=== PATIENT | male | born 1955 | race Caucasian/White ===

== ENCOUNTER → 2017-07-19 09:06 | Outpatient (CLI) | payer OTHER, SELFPAY ==
--- NOTE | 2017-07-19 09:11 | US_ITS ---
US aorta Ordering Physician: Pako Trivedi MD Patient Age: 61 years: Male HISTORY: ITS.REASON: AORTIC ANEURYSM TECHNIQUE: Ultrasound abdomen COMPARISON :Previous CTA abdomen abdomen from March 08, 2017. FINDINGS Aneurysmal lower abdominal aorta again noted and measures 3.9 cm transverse x 3.95 cm cm AP. This is comparable to the findings on February 2017 CT A abdomen study. No significant change. This aneurysm extends for nearly 7.5cm in length .. Mild atheromatous plaque anteriorly. The iliac arteries are only mildly dilated. July 2016 CT this aneurysm measured 3.8 cm x up to 3.9 cm AP The upper abdominal aorta appears normal caliber IMPRESSION AAA A fairly stable appearance to the aneurysm of the lower bowel aorta. It measures up to 3.95 cm AP diameter-comparable, and fairly stable to the CT from February 2017 . Associated mild dilatation of the iliac arteries again noted. Unchanged as well.
== END ==
PROVIDERS: Family Provider Emergency Medicine; PCP Emergency Medicine; Visit Provider Thoracic Surgery (Cardiothoracic Vascular Surgery)
DX: I71.2 Thoracic aortic aneurysm, without rupture (principal)
CPT/HCPCS: 76770

== ENCOUNTER → 2017-07-19 13:05 | Outpatient (POV) | payer OTHER, SELFPAY | PROVIDERS: Family Provider Emergency Medicine; PCP Emergency Medicine; Visit Provider Nurse Practitioner Acute Care | DX: Z00.00 Encounter for general adult medical examination without abnormal findings (principal) ==

== ENCOUNTER 2017-08-23 10:50 | Day surgery (SDC) | payer OTHER, SELFPAY ==
[2017-08-18 16:09] VITALS: BMI 35.4
[2017-08-23] VITALS (8 sets, daily range): BP systolic 120–125; BP diastolic 68–74; PULSE 50–67; RESP 16–18; TEMP 36.6–36.7; O2SAT 93–98
--- NOTE | 2017-08-23 11:06 | HMH.ANESCL ---
[facility] Anesthesia Checklist - Structural Data Admitted From: Home Planned Operative Procedure/s: colonoscopy Consent for Planned Operative Procedure(s) Verified: Yes - Airway Assessment C-Spine Mobility Assessed: Yes TMJ Mobility Assessed: Yes Dentition: Poor Dentition - Neurological Assessment Level of Consciousness: Awake, Alert - Anesthesia Plan Anesthesia Risk discussed: Yes Anesthesia Plan: Verified ASA Class: III Anesthesia Type: MAC [facility] Anesthesia HX I have reviewed the patient's past medical history: Yes Medical History: Reports:: Cancer, Chronic Obstructive Pulmonary Disease (COPD), Coronary Artery Disease, Diabetes Mellitus Type 2 (on med), Hyperlipidemia, Hypertension, Lung Disease (COPD), Transient Ischemic Attacks (TIA), Ulcer Denies:: Diabetes Mellitus Type 1, Internal Pacemaker Other Medical History: Reports: Anemia, Arthritis, Hypothyroidism, Thyroid Disease Other Surgeries: Yes: Appendectomy, Cardiac Catheterization, Plastic Surgery, Other ( ARM TENDON,PARTIAL BRAIN TUMOR REMOVED,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 No: Pacemaker Amputation: No Fractures: No *Family Hx:: Diabetes, Cancer, Hyperlipidemia, Heart Attack
[2017-08-23 11:20] LABS: POC Glucose,Bedside 100 mg/dL (70-110)
--- NOTE | 2017-08-23 12:56 | HMH.PROC ---
[facility] Procedure Note Procedure Note:: Flexible Sigmoidoscopy Procedure Report: Sigmoidoscopy/attempted colonoscopy Endoscopist: Montrell Ambrocio II, MD Referring physician: Teo Dominguez MD/Quinton Diehl M.D. Date of Procedure: August 23, 2017 Equipment: Olympus 180 variable stiffness pediatric colonoscope Sedation: MAC sedation Indication: Mr. Nolan is a 62-year-old gentleman who is here for diagnostic colonoscopy. The patient does have lower abdominal pain. He does have chronic constipation. He has more significant bloating and gassiness. He reports no rectal bleeding, weight loss or family history of colon cancer. He did have a colonoscopy 1.5 years ago and had numerous polyps. He did not get fully cleaned with preparation previously. He does have a history of abdominal aortic aneurysm. He does have a history of dyspepsia. Procedure: Prior to the procedure, a history and physical exam was performed, and patient's medications and allergies were reviewed. The risks, benefits and alternatives of the sedation and procedure were discussed with the patient. All questions were answered and informed consent was obtained. The patient was brought to the procedure room. Patient identification and proposed procedure were verified by the physician and the nurse. The patient was placed in a left lateral decubitus position and the scope was passed under direct vision. Throughout the procedure, the patient's blood pressure, pulse, and oxygen saturations were monitored continuously. The colonoscopy was accomplished without difficulty. The patient tolerated the procedure well. Findings: On digital rectal examination, there was normal rectal tone there were no external hemorrhoids. The scope was then inserted through the anal canal into the rectum and advanced approximately 25 cm. There was abundant liquid dark brown stool and some semisolid stool making visualization of the colon difficult to impossible and thus the procedure was aborted. Impression: 1. Unprepped colon Plan: Repeat colonoscopy with improved bowel preparation
--- NOTE | 2017-08-23 13:00 | P.PCN_ITS ---
[facility] Procedure Note Procedure Note:: Flexible Sigmoidoscopy Procedure Report: Sigmoidoscopy/attempted colonoscopy Endoscopist: Montrell Ambrocio II, MD Referring physician: Teo Dominguez MD/Quinton Diehl M.D. Date of Procedure: August 23, 2017 Equipment: Olympus 180 variable stiffness pediatric colonoscope Sedation: MAC sedation Indication: Mr. Nolan is a 62-year-old gentleman who is here for diagnostic colonoscopy. The patient does have lower abdominal pain. He does have chronic constipation. He has more significant bloating and gassiness. He reports no rectal bleeding, weight loss or family history of colon cancer. He did have a colonoscopy 1.5 years ago and had numerous polyps. He did not get fully cleaned with preparation previously. He does have a history of abdominal aortic aneurysm. He does have a history of dyspepsia. Procedure: Prior to the procedure, a history and physical exam was performed, and patient' s medications and allergies were reviewed. The risks, benefits and alternatives of the sedation and procedure were discussed with the patient. All questions were answered and informed consent was obtained. The patient was brought to the procedure room. Patient identification and proposed procedure were verified by the physician and the nurse. The patient was placed in a left lateral decubitus position and the scope was passed under direct vision. Throughout the procedure, the patient's blood pressure, pulse, and oxygen saturations were monitored continuously. The colonoscopy was accomplished without difficulty. The patient tolerated the procedure well. Findings: On digital rectal examination, there was normal rectal tone there were no external hemorrhoids. The scope was then inserted through the anal canal into the rectum and advanced approximately 25 cm. There was abundant liquid dark brown stool and some semisolid stool making visualization of the colon difficult to impossible and thus the procedure was aborted. Impression: 1. Unprepped colon Plan: Repeat colonoscopy with improved bowel preparation
== END 2017-08-23 14:00 | disposition home or self-care (01) ==
LOC: OUTP 10:51
PROVIDERS: Family Provider Emergency Medicine; PCP Emergency Medicine; Visit Provider Internal Medicine Gastroenterology
PROC: 0DJD8ZZ Inspection of Lower Intestinal Tract, Via Natural or Artificial Opening Endoscopic (ICD-10-PCS; CPT 45378; principal; 2017-08-23 12:30)
DX: K59.00 Constipation, unspecified (principal); Z91.19 Patient's noncompliance with other medical treatment and regimen
CPT/HCPCS: 45330; 82962

== ENCOUNTER 2017-11-04 12:24 | Outpatient (RCR) | payer OTHER, SELFPAY | END 2017-11-11 14:34 | disposition home or self-care (01) | LOC: PT 12:24 | PROVIDERS: Visit Provider Orthopaedic Surgery | DX: S52.125A Nondisplaced fracture of head of left radius, initial encounter for closed fracture (principal) | CPT/HCPCS: 97760 ==

== ENCOUNTER → 2017-11-11 13:11 | Outpatient (CLI) | payer OTHER, SELFPAY | PROVIDERS: PCP Emergency Medicine; Visit Provider Orthopaedic Surgery | DX: S52.122A Displaced fracture of head of left radius, initial encounter for closed fracture (principal) ==

== ENCOUNTER → 2017-11-12 08:07 | Outpatient (CLI) | payer OTHER, SELFPAY ==
--- NOTE | 2017-11-12 08:10 | XR_ITS ---
XR elbow LT 2V HISTORY: ITS.REASON: follow up left radial head fracture ORDERING PHYSICIAN: Sylvester Villasenor MD PATIENT AGE: 62 years COMPARISON: None FINDINGS: Lucency is noted at the radial head consistent with nondisplaced fracture which does appears comminuted. No significant depression. Hypertrophic changes are present at the coronoid process. There is a positive anterior fat pad. IMPRESSION: Nondisplaced comminuted radial head fracture with hemarthrosis
== END ==
PROVIDERS: PCP Emergency Medicine; Visit Provider Orthopaedic Surgery
DX: S52.122A Displaced fracture of head of left radius, initial encounter for closed fracture (principal)
CPT/HCPCS: 73070

== ENCOUNTER → 2017-11-25 14:37 | Outpatient (CLI) | payer OTHER, SELFPAY ==
--- NOTE | 2017-11-25 14:39 | XR_ITS ---
XR hand RT 2V HISTORY: Posttraumatic pain ITS.REASON: fall ORDERING PHYSICIAN: Teo Dominguez MD PATIENT AGE: 62 years COMPARISON: None FINDINGS: AP and and oblique lateral view submitted. No obvious fracture or dislocation. IMPRESSION: Negative two-view right hand
--- NOTE | 2017-11-25 14:39 | XR_ITS ---
XR wrist RT 2V HISTORY posttraumatic pain ITS.REASON: fall ORDERING PHYSICIAN: Teo Dominguez MD PATIENT AGE: 62 years Comparison: None FINDINGS: AP and lateral views show no obvious fracture or dislocation. IMPRESSION: Negative two-view right wrist
== END ==
PROVIDERS: PCP Emergency Medicine; Visit Provider Emergency Medicine
DX: M79.641 Pain in right hand (principal)
CPT/HCPCS: 73100; 73120

== ENCOUNTER 2017-12-16 13:00 | Outpatient (RCR) | payer OTHER, SELFPAY ==
--- NOTE | 2017-11-11 14:19 | HMH.PTOPEV ---
PT Outpatient Evaluation Rehab PT Outpatient Evaluation Start: 11/11/17 14:00 Freq: Status: Active Protocol: Document 11/11/17 14:00 TFRY (Rec: 11/11/17 14:17 TFRY [id number]) Electronically Signed By Zaida Prater OT 11/11/17 14:00 Outpatient Therapy Subjective History Subjective History THIS IS A 62 YEAR OLD RIGHT HANDED MALE REFERRED TO OCCUPATIONAL THERAPY FOR LEFT CMC OA/ PROBALE LEFT RADIAL HEAD FX/LEFT WRIST CONTUSION. PATIENT STATES THAT HE FELL GETTING OUT OF HIS TRUCK WHEN HE GOT HIS FEET GOT CAUGHT STEPPING OVER A PILE OF WOOD. PATIENT STATES HE FEEL APPROXIMATELY 3 WEEKS AGO. Chief Complaint Pain Symptom Type Sharp Symptoms Relieved By Rest/Positioning Brace/Support Prescription Meds Symptoms Aggravated By Physical Activity Prior Functional Limitations None Current Functional Limitations Reaching Lifting Dressing Sleeping Symptom Description Constant but Variable Level of pain today (0-10) 7 Pain scale - at its best (0-10) 3 Pain scale - at its worst (0-10) 9 Shoulder/Elbow Eval Shoulder Objective Measurements Elbow Objective Measurements Elbow ROM Left decreased ROM elbow exam standard left pain with active ROM elbow exam standard left pain with passive ROM elbow exam left standard Elbow Extension Active Range of Motion ( 20 degrees) Elbow Extension Passive Range of Motion 15 (degrees) Elbow Flexion Active Range of Motion ( 110 degrees) Elbow Flexion Passive Range of Motion ( 112 degrees) Elbow Pronation of Forearm Range of WFL Motion (degrees) Elbow Supination of Forearm Range of 20 Motion (degrees) Elbow Supination of Forearm Range of 30 Motion (degrees) Elbow ROM Limitations Pain Elbow MMT Elbow/Forearm Strength Reason Not Orthopedic Precautions Measured Wrist/Hand Eval Palpation Tenderness/Visual Exam Wrist pain left tenderness wrist exam standard left Wrist/Hand Palpation Findings Tenderness Wrist Range of Motion Wrist Extension Active Range of Motion ( 50 degrees) Wrist Extension Passive Range of Motion 58 (degrees) Wrist Flexion Active Range of Motion (
== END 2017-12-16 13:01 | disposition home or self-care (01) ==
LOC: OT 13:00
PROVIDERS: Family Provider Emergency Medicine; PCP Emergency Medicine; Visit Provider Orthopaedic Surgery
DX: S52.125A Nondisplaced fracture of head of left radius, initial encounter for closed fracture (principal)
CPT/HCPCS: 97014; 97033; 97110; 97140; 97166; G0283

== ENCOUNTER 2018-01-06 15:19 | Observation (INO) ==
[2018-01-06 16:05] LABS: Basophils % 0.5 % (0.1-2.0); Eosinophils # 0.1 K/mm3 (0.0-0.4); Eosinophils % 1.5 % (0.1-12.0); Hemoglobin 13.7 g/dL (14.1-18.0); Lymphocytes # 1.5 K/mm3 (0.7-4.5); Lymphocytes % 26.9 K/mm3 (10-50); Mean Corpuscular HGB Conc 32.5 g/dL (31.8-35.4); Mean Corpuscular Hemoglobin 28.4 pg (27.0-31.2); Mean Corpuscular Volume 87.2 fl (80-94); Mean Platelet Volume 7.6 fl (7.4-10.4); Monocytes # 0.5 K/mm3 (0.1-1.0); Monocytes % 8.5 % (1.7-9.3); Neutrophils # 3.6 K/mm3 (1.8-7.8); Neutrophils % 62.6 % (37.0-80.0); Platelet Count 203 K/mm3 (142-424); Red Blood Count 4.82 M/mm3 (4.60-6.20); Red Cell Distribution Width 13.9 % (11.5-17.5); White Blood Count 5.7 K/mm3 (4.8-10.8)
[2018-01-06 16:33] LABS: Alanine Aminotransferase 40 U/L (12-78); Albumin Level 3.7 gm/dL (3.4-5.0); Alkaline Phosphatase 105 U/L (46-116); Anion Gap 10.7 mEq/L (5-15); Aspartate Amino Transferase 19 U/L (15-37); Bilirubin,Total 0.7 mg/dL (0.2-1.0); Blood Urea Nitrogen 15 mg/dL (7-18); Calcium 8.8 mg/dL (8.5-10.1); Carbon Dioxide 29 mmol/L (21.0-32.0); Chloride 105 mmol/L (98-107); Creatine Kinase 144 U/L (39-308); Globulin 3.6 gm/dl (1.3-3.2); Glucose 110 mg/dL (74-106); Potassium 3.7 mmoL/L (3.5-5.1); Sodium 141 mmol/L (136-145); Total Protein,Serum 7.3 gm/dL (6.4-8.2)
--- NOTE | 2018-01-06 16:56 | Emergency Department Note ---
ED Disposition Clinical Impression: Chest pain Qualifiers: Chest pain type: unspecified Qualified Code(s): R07.9 - Chest pain, unspecified Disposition: Admitted as Observation Condition on Discharge: Fair Time of Disposition: 20:36 - Critical Care Critical Care Time: No Attestation: On 01/06/18, the high probability of a clinically significant, sudden or life threatening deterioration of the following system(s) required my full and direct attention, intervention and personal management. The time I documented below is in addition to time spent performing reported procedures but includes the following listed in this critical care notation. Medical Decision Making - Medical Records Medical records reviewed: Yes: I reviewed the patient's medical records. - Luis Felipe Inquiry Pt receiving controlled substance: No Luis Felipe was queried for this patient: No Vital Signs: 01/06/18 15:25 01/06/18 15:40 01/06/18 15:41 Temperature 99.3 F Temperature Source Oral Pulse Rate [Right] 80 82 79 Respiratory Rate 18 18 18 Blood Pressure [Right Arm] 127/86 127/86 117/67 Blood Pressure Mean [Right Arm] 99 99 83 Blood Pressure Source [Right Arm] Automatic Cuff Automatic Cuff Automatic Cuff Blood Pressure Position [Right Arm] Supine Sitting Sitting 02 Sat by Pulse Oximetry 91 L 97 98 Oxygen Delivery Method Room Air Room Air Room Air 01/06/18 15:50 01/06/18 16:20 01/06/18 17:39 Temperature Temperature Source Pulse Rate [Right] 77 78 69 Respiratory Rate 18 18 18 Blood Pressure [Right Arm] 117/67 113/72 115/73 Blood Pressure Mean [Right Arm] 83 85 87 Blood Pressure Source [Right Arm] Automatic Cuff Automatic Cuff Automatic Cuff Blood Pressure Position [Right Arm] Sitting Sitting Sitting 02 Sat by Pulse Oximetry 95 95 95 Oxygen Delivery Method Room Air Room Air Room Air - Lab Data Lab results reviewed: Yes: I reviewed the patient's lab results. Lab Results 01/06/18 16:00: WBC 5.7, RBC 4.82, Hgb 13.7 L, Hct 42.0, MCV 87.2, MCH 28.4, MCHC 32.5, RDW 13.9, Plt Count 203, MPV 7.6, Neut % (Auto) 62.6, Lymph % (Auto) 26.9, [place] % (Auto) 8.5, Eos % (Auto) 1.5, Baso % (Auto) 0.5, Neut # (Auto) 3.6 , Lymph # (Auto) 1.5, [place] # (Auto) 0.5, Eos # (Auto) 0.1, Baso # (Auto) 0.0 01/06/18 16:00: Sodium 141, Potassium 3.7, Chloride 105, Carbon Dioxide 29, Anion Gap 10.7, BUN 15, Creatinine 1.22, Estimated Creat Clear 86, Estimated GFR 60, Est GFR ( Amer) 72, Glucose 110 H, Calcium 8.8, Total Bilirubin 0.7, AST 19, ALT 40, Alkaline Phosphatase 105, Total Creatine Kinase 144, CK-MB (CK-2) 0.8, CK-MB (CK-2) Rel Index 0.6, Troponin I < 0.02, Total Protein 7.3, Albumin 3.7, Globulin 3.6 H, Albumin/Globulin Ratio 1.0 L 01/06/18 17:35: Urine Color Yellow, Urine Appearance Clear, Urine pH 6.0, Ur Specific [place] 1.020, Urine Protein Negative, Urine Glucose (UA) Negative, Urine Ketones Negative, Urine Blood Negative, Urine Nitrate Negative, Urine Bilirubin Negative, Urine Urobilinogen 0.2, Ur Leukocyte Esterase Trace, Urine RBC None, Urine WBC 3-5, Ur Squamous Epith Cells 5-10, Urine Bacteria 2+, Hyaline Casts 5-10 01/06/18 19:15: Troponin I < 0.02 Result diagrams: 01/06/18 16:00 01/06/18 16:00 Orders (Tests/Meds): ED MEDICATIONS Generic Name Dose Route Start Last Admin Trade Name Freq PRN Reason Stop Dose Admin Nitroglycerin 0.4 mg 01/06/18 15:42 Nitrostat 0.4mg Sl Tablet SL 02/05/18 15:41 [id number] PRN Chest Pain Discontinued Medications Generic Name Dose Route Start Last Admin Trade Name Freq PRN Reason Stop Dose Admin Aspirin 324 mg 01/06/18 15:41 01/06/18 15:43 Aspirin 81mg Chewable Tablet PO 01/06/18 15:42 324 mg ONCE ONE Administration Ketorolac Tromethamine 30 mg 01/06/18 19:21 01/06/18 19:33 Toradol 30mg/Ml Vial IV 01/06/18 19:22 30 mg ONCE ONE Administration ORDERS Category Date Time Status Urine Culture Stat Micro 01/06/18 17:35 Received Chest Pain HPI - General Chief Complaint: Chest Pain Stated Complaint: HS Time Seen by Provider: 01/06/18 16:54 Mode of Arrival: Ambulatory Source of Information: Patient Limitations: No Limitations Description of Symptoms (Recalled from ER Triage Doc. by RN): Intermittent chest pain for the past week, mostly at night - History of Present Illness HPI narrative: Intermittent chest pain for the past week, mostly at night and history of CAD with a stent placed by Dr. Castellanos in November 2016. He is on Viagra daily and is not taking NTG MD complaint: chest pain indicative of cardiac Onset (ago): week(s) Duration: intermittent Activity at onset: during rest, light activity Treatments prior to or on arrival for Cardiac Chest Pain: aspirin - Related Data Home Medications Medication Instructions Recorded Confirmed albuterol sulfate HFA 90 2 puff INHALATION Q4H PRN g 06/25/17 11/08/17 mcg/actuation aerosol inhaler fluticasone 50 mcg/actuation nasal 1 spray INTRANASAL QDAY PRN 06/25/17 11/08/17 spray,suspension hydrocodone 10 mg-acetaminophen 1 tab PO QID PRN tab 06/25/17 11/08/17 325 mg tablet polyethylene glycol 3350 17 17 g PO QDAY PRN 06/25/17 11/08/17 gram/dose oral powder sildenafil (antihypertensive) 20 20 mg PO QDAY tab 06/25/17 11/08/17 mg tablet Methocarbamol [Methocarbamol 750mg 750 mg PO BID PRN 08/18/17 11/08/17 Tab] Dexlansoprazole [Dexilant] 60 mg PO DAILY 11/08/17 11/08/17 Losartan/Hydrochlorothiazide 1 tab PO DAILY 11/08/17 11/08/17 [Hyzaar 100-12.5 Tablet] Previous Rx's Medication Instructions Recorded metformin 500 mg tablet 500 mg PO QDAY 90 Days #90 tab 11/01/17 atorvastatin 40 mg tablet 40 mg PO DAILY #30 tab 11/15/17 levothyroxine 75 mcg tablet 75 mcg PO DAILY #90 tab 12/11/17 furosemide 40 mg tablet 40 mg PO DAILY 30 Days #30 tab 12/16/17 Allergies Allergy/AdvReac Type Severity Reaction Status Date / Time cephalexin [CEPHALEXIN] Allergy Unknown Verified 12/09/17 15:15 latex [LATEX] Allergy Unknown Verified 12/09/17 15:15 Penicillins [PENICILLINS] Allergy Unknown Verified 12/09/17 15:15 Sulfa (Sulfonamide Allergy Unknown Verified 12/09/17 15:15 Antibiotics) [SULFA (SULFONAMIDE ANTIBIOTICS)] [facility] History I have reviewed the patient's past medical history: Yes Medical History: Reports:: Cancer (eyelid), Chronic Obstructive Pulmonary Disease (COPD), Coronary Artery Disease, Diabetes Mellitus Type 2, Hyperlipidemia, Hypertension, Lung Disease, Transient Ischemic Attacks (TIA), Ulcer Denies:: Diabetes Mellitus Type 1, Internal Pacemaker, MRSA, Seizures Other Medical History: Reports: Anemia, Arthritis, Hypothyroidism, Thyroid Disease Other Surgeries: Yes: Angiogram, Appendectomy, Cardiac Catheterization, Colonoscopy, Coronary Stent, Plastic Surgery, Other ( ARM TENDON,PARTIAL BRAIN TUMOR REMOVED,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 No: Pacemaker Amputation: No Fractures: Yes (left wrist and arm) - Social History Educational Level: Completed GED/General Educational Development Smoking Status: Former smoker Alcohol Intake: never Alcohol Intake Frequency:: other Substance Use Type: denies use - Psychiatric History Expresses thoughts of harming self/others: None Suicide Plan Description: No Plan Family Hx:: Diabetes, Cancer, Hyperlipidemia, Heart Attack ROS Obtained: Yes All systems reviewed & no additional complaints - Constitutional Constitutional: Reports system reviewed and no additional complaints, except as docu - Eyes Eyes: Reports system reviewed and no additional complaints, except as docu - Cardiovascular Cardiovascular: Reports system reviewed and no additional complaints, except as docu, Reports as per HPI Physical Exam - General General appearance: alert, in no apparent distress - Head Head exam: atraumatic - Eye Eye exam: Present: normal appearance - ENT ENT exam: Present: normal exam (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
[2018-01-06 17:37] LABS: Microscopic, Urine URINE MICROSCOPIC (MICROSCOPIC)
[2018-01-06 17:40] LABS: Appearance,Urine CLEAR (Clear); Bilirubin,Urine Negative (Negative); Blood, Urine Negative (Negative); Color,Urine YELLOW (Yellow); Glucose,Urine (UA) Negative (Negative); Ketones,Urine Negative (Negative); Leukocyte Esterase,Urine TRACE (Negative); Protein,Urine Negative (Negative); Urobilinogen,Urine 0.2 EU/dl (0.2)
[2018-01-06 17:53] LABS: Bacteria,Urine 2+ /lpf
[2018-01-07 06:08] LABS: Basophils % 0.4 % (0.1-2.0); Eosinophils # 0.1 K/mm3 (0.0-0.4); Eosinophils % 1.1 % (0.1-12.0); Hematocrit 43.9 % (42.0-52.0); Hemoglobin 13.6 g/dL (14.1-18.0); Lymphocytes # 0.8 K/mm3 (0.7-4.5); Mean Corpuscular Hemoglobin 27.4 pg (27.0-31.2); Mean Corpuscular Volume 88.4 fl (80-94); Mean Platelet Volume 7.6 fl (7.4-10.4); Monocytes # 0.5 K/mm3 (0.1-1.0); Neutrophils # 7.6 K/mm3 (1.8-7.8); Neutrophils % 83.4 % (37.0-80.0); Platelet Count 188 K/mm3 (142-424); Red Blood Count 4.96 M/mm3 (4.60-6.20); Red Cell Distribution Width 13.8 % (11.5-17.5); White Blood Count 9.1 K/mm3 (4.8-10.8)
--- NOTE | 2018-01-07 07:58 | Consult Report ---
History of Present Illness Consult date: 01/07/18 Requesting physician: Teo Dominguez Consult reason: chest pain Chief complaint: chest pain Additional Medical History:: 1. Coronary disease A. History of abnormal stress test with inferior ischemia, 11/2016 B. Cardiac catheterization with subsequent drug-eluting stent placement to the RIGHT coronary artery, 11/2016. Aspirin and Effient therapy. C. Federico Myoview, 02/2017, No ischemia with inferior scar. EF 55%. D. Hospital admission for chest pain with normal troponins, 05/2017, Cardiac cath revealing patent RCA stent with insignificant CAD of true circumflex. Normal LVEF. 2. Previous brain surgery for benign brain mass, 1995, with resultant RIGHT facial droop A. Follows with neurology at . Recent MRI of the brain 02/2017, results pending 3. History of both ascending aortic aneurysm (4 cm) and abdominal aortic aneurysm (3.9 X 3.4 cm), with CTA of the chest and abdomen, 07/2016. A. CTA of chest, 03/08/2017, AAA at 4 cm. 4. Diabetes mellitus 5. Hyperlipidemia 6. Remote tobacco use discontinued approximately 2002 A. COPD History of present illness: 62 yo WM with known previous CAD and RCA stenting with most recent cardiac cath in 05/2017 showing patient stent with insignificant disease of the circumflex presented to the ER for evaluation of 2 wks of chest pain associated with emotional distress. Patient relates no exertional chest pains and today states that he has been under a lot of emotional stress over the last 2 wks. Cardiac troponins have been normal X 4 overnight. EKG is sinus without acute changes. He does relate increased reflux symptoms which improves with ant-acids. Cardiology consulted for further evaluation. [facility] History Medical History: Reports:: Cancer (eyelid), Chronic Obstructive Pulmonary Disease (COPD), Coronary Artery Disease, Diabetes Mellitus Type 2, Hyperlipidemia, Hypertension, Lung Disease, Transient Ischemic Attacks (TIA), Ulcer Denies:: Diabetes Mellitus Type 1, Internal Pacemaker, MRSA, Seizures Other Medical History: Reports: Anemia, Arthritis, Hypothyroidism, Thyroid Disease Other Surgeries: Yes: Angiogram, Appendectomy, Cardiac Catheterization, Colonoscopy, Coronary Stent, Plastic Surgery, Other ( ARM TENDON,PARTIAL BRAIN TUMOR REMOVED,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 No: Pacemaker Amputation: No Fractures: Yes (left wrist and arm) - *Social History Educational Level: Completed GED/General Educational Development Smoking Status: Former smoker Alcohol Intake: former Alcohol Intake Frequency:: other Substance Use Type: marijuana Occupational Status: disabled - Psychiatric History Expresses thoughts of harming self/others: None Suicide Plan Description: No Plan *Family Hx:: Diabetes, Cancer, Hyperlipidemia, Heart Attack Meds Home Medications Medication Instructions Recorded Confirmed Type albuterol sulfate HFA 90 2 puff INHALATION Q4H PRN g 06/25/17 01/06/18 History mcg/actuation aerosol inhaler fluticasone 50 mcg/actuation nasal 1 spray INTRANASAL QDAY PRN 06/25/17 History spray,suspension hydrocodone 10 mg-acetaminophen 1 tab PO Q6HP PRN tab 06/25/17 01/07/18 History 325 mg tablet polyethylene glycol 3350 17 17 g PO QDAY PRN 06/25/17 01/06/18 History gram/dose oral powder sildenafil (antihypertensive) 20 20 mg PO QDAY PRN tab 06/25/17 01/06/18 History mg tablet Methocarbamol [Methocarbamol 750mg 750 mg PO BID PRN 08/18/17 01/06/18 History Tab] Losartan/Hydrochlorothiazide 1 tab PO DAILY 11/08/17 01/07/18 History [Hyzaar 100-12.5 Tablet] Alfuzosin HCl [Alfuzosin HCl ER] 10 mg PO DAILY 01/07/18 01/07/18 History Aspirin [Aspirin 81mg EC Tab] 81 mg PO DAILY 01/07/18 01/07/18 History Rabeprazole Sodium 20 mg PO DAILY 01/07/18 01/07/18 History Allergies Allergy/AdvReac Type Severity Reaction Status Date / Time latex [LATEX] Allergy Unknown Verified 12/09/17 15:15 Penicillins [PENICILLINS] Allergy Unknown Verified 12/09/17 15:15 Sulfa (Sulfonamide Allergy Unknown Verified 12/09/17 15:15 Antibiotics) [SULFA (SULFONAMIDE ANTIBIOTICS)] Review of Systems - *Cardiovascular Reports chest pain, Reports shortness of breath with activity - *Respiratory Reports shortness of breath with activity - *Gastrointestinal Denies abdominal pain - *Musculoskeletal Reports joint pain Exam Vital signs and Labs for Last 24 Hours: Temp Pulse Resp BP Pulse Ox 97.7 F 93 H 18 122/56 98 01/07/18 05:41 01/07/18 05:41 01/07/18 05:41 01/07/18 05:41 01/07/18 05:41 Laboratory Results - last 24 hr 01/06/18 16:00: WBC 5.7, RBC 4.82, Hgb 13.7 L, Hct 42.0, MCV 87.2, MCH 28.4, MCHC 32.5, RDW 13.9, Plt Count 203, MPV 7.6, Neut % (Auto) 62.6, Lymph % (Auto) 26.9, [place] % (Auto) 8.5, Eos % (Auto) 1.5, Baso % (Auto) 0.5, Neut # (Auto) 3.6 , Lymph # (Auto) 1.5, [place] # (Auto) 0.5, Eos # (Auto) 0.1, Baso # (Auto) 0.0 01/06/18 16:00: Sodium 141, Potassium 3.7, Chloride 105, Carbon Dioxide 29, Anion Gap 10.7, BUN 15, Creatinine 1.22, Estimated Creat Clear 86, Estimated GFR 60, Est GFR ( Amer) 72, Glucose 110 H, Calcium 8.8, Total Bilirubin 0.7, AST 19, ALT 40, Alkaline Phosphatase 105, Total Creatine Kinase 144, CK-MB (CK-2) 0.8, CK-MB (CK-2) Rel Index 0.6, Troponin I < 0.02, Total Protein 7.3, Albumin 3.7, Globulin 3.6 H, Albumin/Globulin Ratio 1.0 L 01/06/18 17:35: Urine Color Yellow, Urine Appearance Clear, Urine pH 6.0, Ur Specific [place] 1.020, Urine Protein Negative, Urine Glucose (UA) Negative, Urine Ketones Negative, Urine Blood Negative, Urine Nitrate Negative, Urine Bilirubin Negative, Urine Urobilinogen 0.2, Ur Leukocyte Esterase Trace, Urine RBC None, Urine WBC 3-5, Ur Squamous Epith Cells 5-10, Urine Bacteria 2+, Hyaline Casts 5-10 01/06/18 19:15: Troponin I < 0.02 01/06/18 23:47: Troponin I < 0.02 01/07/18 02:50: Troponin I < 0.02 01/07/18 05:44: WBC 9.1 D, RBC 4.96, Hgb 13.6 L, Hct 43.9, MCV 88.4, MCH 27.4, MCHC 31.0 L, RDW 13.8, Plt Count 188, MPV 7.6, Neut % (Auto) 83.4 H, Lymph % ( Auto) 9.0 L, [place] % (Auto) 6.0, Eos % (Auto) 1.1, Baso % (Auto) 0.4, Neut # ( Auto) 7.6, Lymph # (Auto) 0.8, [place] # (Auto) 0.5, Eos # (Auto) 0.1, Baso # (Auto ) 0.0 01/07/18 05:44: Troponin I < 0.02 I & O for Last 24 hours: Intake & Output 01/04/18 01/05/18 01/06/18 01/07/18 11:59 11:59 11:59 11:59 Weight 227 lb 7 oz - *Routine Neck Exam Absent: JVD, carotid bruit - *Routine Respiratory Exam Present: CTA bilaterally - *Routine Cardiovascular Exam Present: RRR, murmur. Absent: gallop, rubs - *Routine Abdominal Exam Present: soft. Absent: tenderness - *Routine Extremities Exam Absent: edema Assessment and Plan (1) Chest pain Current visit: Yes Status: Acute Qualifiers: Chest pain type: unspecified Qualified Code(s): R07.9 - Chest pain, unspecified Category: Medical Code(s): R07.9 - Chest pain, unspecified (2) Abdominal aortic aneurysm Current visit: No Status: Acute Category: Medical Code(s): I71.4 - Abdominal aortic aneurysm, without rupture (3) Aneurysm of ascending aorta Current visit: No Status: Acute Category: Medical Code(s): I71.2 - Thoracic aortic aneurysm, without rupture (4) Coronary arteriosclerosis Current visit: No Status: Acute Category: Medical Code(s): I25.10 - Atherosclerotic heart disease of [place] coronary artery without angina pectoris (5) Hyperlipidemia Current visit: No Status: Acute Category: Medical Code(s): E78.5 - Hyperlipidemia, unspecified (6) Hypertensive heart disease Current visit: No Status: Acute Category: Medical Code(s): I11.9 - Hypertensive heart disease without heart failure (7) Stented coronary artery Current visit: No Status: Acute Category: Surgical Code(s): Z95.5 - Presence of coronary angioplasty implant and graft - Assessment and plan all Dx Assessment and Plan for all problems:: 1. Chest pain does not appear to be cardiac in nature with normal troponins X 4 , EKG without acute changes and symptoms unrelated to activity. With widely patent stent by cardiac cath in 05/2017, would not recommend further workup at this time. 2. Continue current meds including ASA 81 mg daily. 3. Follow up in our office in 2 wks to discuss follow up scan for AAA.
--- NOTE | 2018-01-07 10:15 | Pharmacy Consult Notes ---
[facility] VTE Monitoring - Patient Demographics Admission date: 01/06/18 Report Date: 01/07/18 Time: 10:15 Allergies/Adverse Reactions: Patient Allergies latex [LATEX] Allergy (Unknown, Verified 12/09/17 15:15) Penicillins [PENICILLINS] Allergy (Unknown, Verified 12/09/17 15:15) Sulfa (Sulfonamide Antibiotics) [SULFA (SULFONAMIDE ANTIBIOTICS)] Allergy ( Unknown, Verified 12/09/17 15:15) Height: 1.73 m Weight: 103.164 kg Patient Problems: Current Active Problems (Last Updated 12/11/17 @ 18:41 by LOUIE Landin) Chest pain (Acute) - VTE Risk Labs: VTE Related Lab Results Hgb 13.6 g/dL (14.1-18.0) L 01/07/18 05:44 Hct 43.9 % (42.0-52.0) 01/07/18 05:44 Plt Count 188 K/mm3 (142-424) 01/07/18 05:44 BUN 15 mg/dL (7-18) 01/06/18 16:00 Creatinine 1.22 mg/dL (0.70-1.30) 01/06/18 16:00 Estimated Creat Clear 86 mL/min (0-300) 01/06/18 16:00 Was VTE Risk Assessment Performed: Yes VTE Score: 2 VTE Risk Level: Very Low Risk - Prophylaxis VTE Prophylaxis Ordered?: Yes Types of VTE Prophylaxis: TEDS Knee High Location of Applied Device: Bilateral Lower Extremeties - VTE Diagnosis Confirmed Treatment or plan recommended: Continue Current Treatment
--- NOTE | 2018-01-07 12:17 | H&P/Discharge Summary ---
General - General Admission date:: 01/06/18 Discharge date: 01/07/18 *Admission Date: 01/06/18 *Chief complaint: chest pain *History of present illness: this wm with known cardiac disease - pt has had episodes of chest pain over the last week - he was seen in the ed - termittent chest pain for the past week, mostly at night and history of CAD with a stent placed by Dr. Castellanos in November 2016. He is on Viagra daily and is not taking NTG- pt was admitted for card eval and serial enz [facility] History I have reviewed the patient's past medical history: Yes Medical History: Reports:: Cancer (eyelid), Chronic Obstructive Pulmonary Disease (COPD), Coronary Artery Disease, Diabetes Mellitus Type 2, Hyperlipidemia, Hypertension, Lung Disease, Transient Ischemic Attacks (TIA), Ulcer Denies:: Diabetes Mellitus Type 1, Internal Pacemaker, MRSA, Seizures Other Medical History: Reports: Anemia, Arthritis, Hypothyroidism, Thyroid Disease Other Surgeries: Yes: Angiogram, Appendectomy, Cardiac Catheterization, Colonoscopy, Coronary Stent, Plastic Surgery, Other ( ARM TENDON,PARTIAL BRAIN TUMOR REMOVED,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 No: Pacemaker Amputation: No Fractures: Yes (left wrist and arm) - *Social History Educational Level: Completed GED/General Educational Development Smoking Status: Former smoker Alcohol Intake: former Alcohol Intake Frequency:: other Substance Use Type: marijuana Occupational Status: disabled - Psychiatric History Expresses thoughts of harming self/others: None Suicide Plan Description: No Plan *Family Hx:: Diabetes, Cancer, Hyperlipidemia, Heart Attack Review of Systems - Review of Systems Review of systems:: pertinent systems reviewed and negative unless documented below - Constitutional Denies fever(s) - Eyes Denies change in vision - ENT Denies throat swelling - *Cardiovascular Reports chest pain at rest - *Respiratory Denies cough - *Gastrointestinal Denies abdominal pain - *Genitourinary Denies blood in urine - *Musculoskeletal Reports joint pain, Reports joint swelling - Integumentary/Breasts Denies rash - *Neurologic Denies seizure-like activity - Psychiatric Reports anxiety Exam Vital signs and Labs for Last 24 Hours: Temp Pulse Resp BP Pulse Ox 98.8 F 89 18 134/75 95 01/07/18 08:00 01/07/18 08:00 01/07/18 08:00 01/07/18 08:00 01/07/18 08:00 Laboratory Results - last 24 hr 01/06/18 16:00: WBC 5.7, RBC 4.82, Hgb 13.7 L, Hct 42.0, MCV 87.2, MCH 28.4, MCHC 32.5, RDW 13.9, Plt Count 203, MPV 7.6, Neut % (Auto) 62.6, Lymph % (Auto) 26.9, [place] % (Auto) 8.5, Eos % (Auto) 1.5, Baso % (Auto) 0.5, Neut # (Auto) 3.6 , Lymph # (Auto) 1.5, [place] # (Auto) 0.5, Eos # (Auto) 0.1, Baso # (Auto) 0.0 01/06/18 16:00: Sodium 141, Potassium 3.7, Chloride 105, Carbon Dioxide 29, Anion Gap 10.7, BUN 15, Creatinine 1.22, Estimated Creat Clear 86, Estimated GFR 60, Est GFR ( Amer) 72, Glucose 110 H, Calcium 8.8, Total Bilirubin 0.7, AST 19, ALT 40, Alkaline Phosphatase 105, Total Creatine Kinase 144, CK-MB (CK-2) 0.8, CK-MB (CK-2) Rel Index 0.6, Troponin I < 0.02, Total Protein 7.3, Albumin 3.7, Globulin 3.6 H, Albumin/Globulin Ratio 1.0 L 01/06/18 17:35: Urine Color Yellow, Urine Appearance Clear, Urine pH 6.0, Ur Specific [place] 1.020, Urine Protein Negative, Urine Glucose (UA) Negative, Urine Ketones Negative, Urine Blood Negative, Urine Nitrate Negative, Urine Bilirubin Negative, Urine Urobilinogen 0.2, Ur Leukocyte Esterase Trace, Urine RBC None, Urine WBC 3-5, Ur Squamous Epith Cells 5-10, Urine Bacteria 2+, Hyaline Casts 5-10 01/06/18 19:15: Troponin I < 0.02 01/06/18 23:47: Troponin I < 0.02 01/07/18 02:50: Troponin I < 0.02 01/07/18 05:44: WBC 9.1 D, RBC 4.96, Hgb 13.6 L, Hct 43.9, MCV 88.4, MCH 27.4, MCHC 31.0 L, RDW 13.8, Plt Count 188, MPV 7.6, Neut % (Auto) 83.4 H, Lymph % ( Auto) 9.0 L, [place] % (Auto) 6.0, Eos % (Auto) 1.1, Baso % (Auto) 0.4, Neut # ( Auto) 7.6, Lymph # (Auto) 0.8, [place] # (Auto) 0.5, Eos # (Auto) 0.1, Baso # (Auto ) 0.0 01/07/18 05:44: Troponin I < 0.02 I & O for Last 24 hours: Intake & Output 01/05/18 01/06/18 01/07/18 01/08/18 11:59 11:59 11:59 11:59 Weight 227 lb 7 oz - Constitutional no acute distress - *Routine HEENT Exam Head: Present: normocephalic Eye: Present: EOMI, PERRL ENT: Present: mucous membranes dry - *Routine Neck Exam Present: supple - *Routine Respiratory Exam Present: CTA bilaterally - *Routine Cardiovascular Exam Present: RRR, murmur - *Routine Abdominal Exam Present: soft. Absent: tenderness - *Routine Extremities Exam Absent: calf tenderness - *Routine Skin Exam Present: intact - *Routine Neurological Exam Present: alert, oriented X3, CN II-XII intact - Routine Psychiatric Exam Present: normal affect Hospital Course Hospital Course: pt did well in hospital and had neg enz and pain better - he was seen by card- Coronary disease A. History of abnormal stress test with inferior ischemia, 11/2016 B. Cardiac catheterization with subsequent drug-eluting stent placement to the RIGHT coronary artery, 11/2016. Aspirin and Effient therapy. C. Federico Myoview, 02/2017, No ischemia with inferior scar. EF 55%. D. Hospital admission for chest pain with normal troponins, 05/2017, Cardiac cath revealing patent RCA stent with insignificant CAD of true circumflex. Normal LVEF. 2. Previous brain surgery for benign brain mass, 1995, with resultant RIGHT facial droop A. Follows with neurology at . Recent MRI of the brain 02/2017, results pending 3. History of both ascending aortic aneurysm (4 cm) and abdominal aortic aneurysm (3.9 X 3.4 cm), with CTA of the chest and abdomen, 07/2016. A. CTA of chest, 03/08/2017, AAA at 4 cm. 4. Diabetes mellitus 5. Hyperlipidemia 6. Remote tobacco use discontinued approximately 2002 A. COPD History of present illness: 62 yo WM with known previous CAD and RCA stenting with most recent cardiac cath in 05/2017 showing patient stent with insignificant disease of the circumflex presented to the ER for evaluation of 2 wks of chest pain associated with emotional distress. Patient relates no exertional chest pains and today states that he has been under a lot of emotional stress over the last 2 wks. Cardiac troponins have been normal X 4 overnight. EKG is sinus without acute changes. He does relate increased reflux symptoms which improves with ant-acids. Cardiology consulted for further evaluation. Results Labs on day of discharge: Labs from last 24 hours 01/07/18 01/07/18 01/07/18 05:44 05:44 02:50 WBC 9.1 D RBC 4.96 Hgb 13.6 L Hct 43.9 MCV 88.4 MCH 27.4 MCHC 31.0 L RDW 13.8 Plt Count 188 MPV 7.6 Neut % (Auto) 83.4 H Lymph % (Auto) 9.0 L [place] % (Auto) 6.0 Eos % (Auto) 1.1 Baso % (Auto) 0.4 Neut # (Auto) 7.6 Lymph # (Auto) 0.8 [place] # (Auto) 0.5 Eos # (Auto) 0.1 Baso # (Auto) 0.0 Sodium Potassium Chloride Carbon Dioxide Anion Gap BUN Creatinine Estimated Creat Clear Estimated GFR Est GFR ( Amer) Glucose Calcium Total Bilirubin AST ALT Alkaline Phosphatase Total Creatine Kinase CK-MB (CK-2) CK-MB (CK-2) Rel Index Troponin I < 0.02 < 0.02 Total Protein Albumin Globulin Albumin/Globulin Ratio Urine Color Urine Appearance Urine pH Ur Specific [place] Urine Protein Urine Glucose (UA) Urine Ketones Urine Blood Urine Nitrate Urine Bilirubin Urine Urobilinogen Ur Leukocyte Esterase Urine RBC Urine WBC Ur Squamous Epith Cells Urine Bacteria Hyaline Casts 01/06/18 01/06/18 01/06/18 23:47 19:15 17:35 WBC RBC Hgb Hct MCV MCH MCHC RDW Plt Count MPV Neut % (Auto) Lymph % (Auto) [place] % (Auto) Eos % (Auto) Baso % (Auto) Neut # (Auto) Lymph # (Auto) [place] # (Auto) Eos # (Auto) Baso # (Auto) Sodium Potassium Chloride Carbon Dioxide Anion Gap BUN Creatinine Estimated Creat Clear Estimated GFR Est GFR ( Amer) Glucose Calcium Total Bilirubin AST ALT Alkaline Phosphatase Total Creatine Kinase CK-MB (CK-2) CK-MB (CK-2) Rel Index Troponin I < 0.02 < 0.02 Total Protein Albumin Globulin Albumin/Globulin Ratio Urine Color Yellow Urine Appearance Clear Urine pH 6.0 Ur Specific [place] 1.020 Urine Protein Negative Urine Glucose (UA) Negative Urine Ketones Negative Urine Blood Negative Urine Nitrate Negative Urine Bilirubin Negative Urine Urobilinogen 0.2 Ur Leukocyte Esterase Trace Urine RBC None Urine WBC 3-5 Ur Squamous Epith Cells 5-10 Urine Bacteria 2+ Hyaline Casts 5-10 01/06/18 01/06/18 16:00 16:00 WBC 5.7 RBC 4.82 Hgb 13.7 L Hct 42.0 MCV 87.2 MCH 28.4 MCHC 32.5 RDW 13.9 Plt Count 203 MPV 7.6 Neut % (Auto) 62.6 Lymph % (Auto) 26.9 [place] % (Auto) 8.5 Eos % (Auto) 1.5 Baso % (Auto) 0.5 Neut # (Auto) 3.6 Lymph # (Auto) 1.5 [place] # (Auto) 0.5 Eos # (Auto) 0.1 Baso # (Auto) 0.0 Sodium 141 Potassium 3.7 Chloride 105 Carbon Dioxide 29 Anion Gap 10.7 BUN 15 Creatinine 1.22 Estimated Creat Clear 86 Estimated GFR 60 Est GFR ( Amer) 72 Glucose 110 H Calcium 8.8 Total Bilirubin 0.7 AST 19 ALT 40 Alkaline Phosphatase 105 Total Creatine Kinase 144 CK-MB (CK-2) 0.8 CK-MB (CK-2) Rel Index 0.6 Troponin I < 0.02 Total Protein 7.3 Albumin 3.7 Globulin 3.6 H Albumin/Globulin Ratio 1.0 L Urine Color Urine Appearance Urine pH Ur Specific [place] Urine Protein Urine Glucose (UA) Urine Ketones Urine Blood Urine Nitrate Urine Bilirubin Urine Urobilinogen Ur Leukocyte Esterase Urine RBC Urine WBC Ur Squamous Epith Cells Urine Bacteria Hyaline Casts DS: Diagnosis - Discharge Diagnosis (1) Chest pain Status: Acute (2) Abdominal aortic aneurysm Status: Acute (3) Aneurysm of ascending aorta Status: Acute (4) Coronary arteriosclerosis Status: Acute (5) Hyperlipidemia Status: Acute (6) Hypertensive heart disease Status: Acute (7) Stented coronary artery Status: Acute Discharge Medications Discharge Medications: Home Medications Medication Instructions Recorded Confirmed Type albuterol sulfate HFA 90 2 puff INHALATION Q4H PRN g 06/25/17 01/06/18 History mcg/actuation aerosol inhaler fluticasone 50 mcg/actuation nasal 1 spray INTRANASAL QDAY PRN 06/25/17 History spray,suspension hydrocodone 10 mg-acetaminophen 1 tab PO Q6HP PRN tab 06/25/17 01/07/18 History 325 mg tablet polyethylene glycol 3350 17 17 g PO QDAY PRN 06/25/17 01/06/18 History gram/dose oral powder sildenafil (antihypertensive) 20 20 mg PO QDAY PRN tab 06/25/17 01/06/18 History mg tablet Methocarbamol [Methocarbamol 750mg 750 mg PO BID PRN 08/18/17 01/06/18 History Tab] Losartan/Hydrochlorothiazide 1 tab PO DAILY 11/08/17 01/07/18 History [Hyzaar 100-12.5 Tablet] Alfuzosin HCl [Alfuzosin HCl ER] 10 mg PO DAILY 01/07/18 01/07/18 History Aspirin [Aspirin 81mg EC Tab] 81 mg PO DAILY 01/07/18 01/07/18 History Rabeprazole Sodium 20 mg PO DAILY 01/07/18 01/07/18 History Disposition Disposition: Home, Self-Care
[2018-01-07 12:29] VITALS: BP 94/50
== END 2018-01-07 12:59 | disposition home or self-care (01) ==
LOC: 2ND 15:19 → ER 15:19 → 2ND 21:13
PROVIDERS: ADMIT Emergency Medicine; ATTEND Emergency Medicine

== ENCOUNTER → 2018-03-17 10:28 | Outpatient (CLI) | payer OTHER, SELFPAY ==
--- NOTE | 2018-03-17 10:46 | US_ITS ---
US aorta HISTORY: Follow-up of abdominal aortic aneurysm ITS.REASON: 1 COMPARISON: 07/19/2017 FINDINGS: Aneurysmal dilatation once again noted involving the lower abdominal aorta measuring up to 3.8 cm in maximum AP dimension. This is not significantly changed. The common iliacs are not imaged. Study is somewhat limited due to overlying bowel gas. IMPRESSION: Overall no change lower abdominal aortic aneurysm measuring up to 3.8 cm
[2018-03-17 11:08] LABS: Blood Urea Nitrogen 15 mg/dL (7-18); Estimated Glomerular Filt Rate 61 ml/min (>60); GFR (African American) 74 ML/MIN (>60)
--- NOTE | 2018-03-17 12:07 | CT_ITS ---
CT angio chest HISTORY: Follow-up thoracic aortic aneurysm ITS.REASON: aneurysm of ascending aorta ORDERING PHYSICIAN: Sami Castellanos MD PATIENT AGE: 62 years COMPARISON: 03/08/2017 TECHNIQUE: Axial images obtained following the administration of 75 mL of Isovue 370 . Sagittal, and coronal reformatted images are also generated and reviewed. All CT scans at the facility use one or more dose reduction, viz: automated exposure control, ma/kV adjustment per patient size (including targeted exams where dose is matched to indication, i.e. head), or iterative reconstruction technique. FINDINGS: There is mild ectasia of the ascending aorta measuring up to 3.7 cm. Mild amount of atheromatous plaque is present in the aortic arch. The aorta at this area measures 3.3 cm. The great vessels have an unremarkable appearance. There is no evidence of aortic dissection. Coronary artery calcifications are present. No evidence of central pulmonary embolus. Normal heart size. No evidence of pericardial effusion. Mild centrilobular emphysematous changes are present. Calcified granulomas present in the right lung base. Lungs are otherwise clear. No central obstructing lesions. No acute bony findings. Upper abdominal images show bilateral renal cysts IMPRESSION: 1. Overall stable CT appearance of the chest. No change in the mild ectasia with atheromatous change of the ascending aorta with no evidence of dissection. 2. Coronary artery calcification. 3. Mild centrilobular emphysema
== END ==
PROVIDERS: Family Provider Emergency Medicine; PCP Emergency Medicine; Visit Provider Internal Medicine
DX: I71.4 Abdominal aortic aneurysm, without rupture (principal); I71.2 Thoracic aortic aneurysm, without rupture
CPT/HCPCS: 36415; 71275; 76770; 82565; 84520; Q9967

== ENCOUNTER → 2018-03-28 14:33 | Outpatient (CLI) | payer OTHER, SELFPAY ==
--- NOTE | 2018-03-28 14:34 | MR_ITS ---
MR head/brain wo con HISTORY: Severe headache with neck pain, prior brain tumor removed ITS.REASON: possible tia ORDERING PHYSICIAN: Teo Dominguez MD PATIENT AGE: 62 years Comparison: 03/09/2018, 02/23/2017 TECHNIQUE: Standard multiplanar multiecho sequences are performed without contrast. FINDINGS: Postsurgical changes once again noted involving the right CP angle with mixed decreased T1 and increased T2 signal in the right cerebellopontine angle as before without significant mass effect. The CP angles are otherwise unremarkable. No midline shift, mass effect, intracranial hemorrhage, or hydrocephalus is evident.. There is increased diffusion signal to the right of the brainstem posteriorly at the foramen magnum and along the posterior aspect of the right petrous bone similar to the previous exam not significant changed without mass effect. No acute infarction. There is normal pérez-white matter differentiation. 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 No mastoid effusion or sinus air-fluid level. IMPRESSION: 1. No change with no acute finding. No evidence of acute infarction. 2. Stable postsurgical changes in the right CP angle
== END ==
PROVIDERS: Family Provider Emergency Medicine; PCP Emergency Medicine; Visit Provider Emergency Medicine
DX: R20.0 Anesthesia of skin (principal); R51 Headache
CPT/HCPCS: 70551

== ENCOUNTER → 2018-07-14 09:54 | Outpatient (CLI) | payer OTHER, SELFPAY ==
[2018-07-14 10:24] VITALS: PULSE 65
== END ==
PROVIDERS: PCP Emergency Medicine; Visit Provider Emergency Medicine
DX: J44.9 Chronic obstructive pulmonary disease, unspecified (principal)
CPT/HCPCS: 94060; 94640

== ENCOUNTER → 2018-08-11 07:00 | Outpatient (CLI) | payer MEDICARE, OTHER, SELFPAY ==
--- NOTE | 2018-08-11 07:02 | CA_ITS ---
PROCEDURE: 2-D M-mode and color Doppler study INDICATIONS FOR THE TEST: Chest pain+ COPD+ Heart Murmur Tobacco Smokingex Palpitations Fatigue Syncope Edema Hypertension+Diabetes Mellitus+ Rheumatic Fever SOB DAWSON+Obesity+Hyperlipidemia+ Family History HD Additional History aaa,stents PATIENT INFORMATION HEIGHT: 68 WEIGHT:228 GENDER: Male B/P:126/82 2-D/M-MODE INTERPRETATION: 2-D MEASUREMENTS OBSERVED VALUES IN CMS Right Ventricular Dimension (RVDd) 2.4 Interventricular Septum (Thickness)(IVsd) 1.3 Left Ventricular Internal Dimensions(LVIDd) 4.4 Left Ventricular Posterior Wall (Thickness)(LVPWd) 0.9 Aortic Root 3.2 Aortic Cusp Separation 2.2 Left Atrial Dimensions (LAD) 4.3 2D 1. Technically difficult study because of the patient's factor and poor acoustic windows 2. Left atrium is mildly enlarged, left ventricle is normal size, mild concentric left ventricular hypertrophy, visually estimated ejection fraction 55% with no regional wall motion abnormality. 3. The right atrium and right ventricle are normal size and contractility. 4. The aortic valve is thickened and calcified leaflet continue to display good mobility. 5. The mitral and tricuspid valve leaflets are minimally thickened and calcified. 6. No significant pericardial effusion noted. DOPPLER INTERROGATION: Doppler interrogation of the aortic, mitral and tricuspid valvular presence of mild mitral and tricuspid regurgitation, tricuspid regurgitation jet velocity is inadequate for calculation of the right ventricular systolic pressure, grade 1 diastolic dysfunction seen with tissue Doppler evidence of raised left atrial pressure. CONCLUSION: 1. Technically difficult study because of the patient's factors and poor acoustic windows 2. Left atrium is mildly enlarged, left ventricle is normal size, mild concentric left ventricular hypertrophy, visually estimated ejection fraction 55% with no regional wall motion abnormality, grade 1 diastolic dysfunction seen with tissue Doppler evidence of raised left atrial pressure. 3. Mild mitral and tricuspid regurgitation 4. No significant pericardial effusion noted.
--- NOTE | 2018-08-11 07:02 | NM_ITS ---
History and Indications: Hypertension, diabetes, hyperlipidemia, family history, chest pain, shortness of breath, palpitations and fatigue Procedure: Patient received a 0.4 mg of intravenous Lexiscan, resting heart rate was 70 bpm resting blood pressure 131/78, with Lexiscan maximum heart rate achieved was 114 bpm which is less than 85% of the maximum predicted heart rate and a blood pressure was 134/84. With Lexiscan patient complained of chest and shoulder pressure nausea and vomiting requiring intravenous Aminophyllin to reverse symptoms. Electrocardiogram: Resting electrocardiogram showed the sinus rhythm, with Lexiscan there is less than 1.[address] segment depression noted from the baseline EKG. The EKG portion of the Lexiscan Myoview is nondiagnostic. Cardiac stress and resting SPECT images: Cardiac stress and resting SPECT images were obtained using technetium 99 Myoview 31.1 mCi stress and 10.6 mCi at rest. Gated SPECT further analysis of segmental wall motion and calculation of the ejection fraction also done. Cardiac stress and resting SPECT images show decreased tracer activity in the inferior wall which partially improves on the resting images suggestive of mixed ischemia and scar, computer derived ejection fraction is 54% with mild inferior wall hypokinesis, right ventricle is normal size and contractility. Conclusion: 1. The EKG portion of the Lexiscan Myoview is nondiagnostic. 2. Scintigraphic evidence of mixed ischemia and scar involving the inferior wall, computer derived ejection fraction is 54% with segmental wall motion abnormality described above, right ventricle is normal size and contractility. 3. Abnormal Lexiscan Myoview study.
--- NOTE | 2018-08-11 11:01 | HMH.ITSHM ---
Current Home Medications as stated by this patient Gigi Nolan SR or manufacturer's representative. []asa
== END ==
PROVIDERS: PCP Emergency Medicine; Visit Provider Internal Medicine
DX: I25.10 Atherosclerotic heart disease of native coronary artery without angina pectoris (principal); I71.4 Abdominal aortic aneurysm, without rupture; I77.810 Thoracic aortic ectasia; I11.9 Hypertensive heart disease without heart failure; I73.9 Peripheral vascular disease, unspecified; E11.42 Type 2 diabetes mellitus with diabetic polyneuropathy; E78.49 Other hyperlipidemia; E66.9 Obesity, unspecified; R53.83 Other fatigue; Z95.5 Presence of coronary angioplasty implant and graft
CPT/HCPCS: 78452; 93017; 93306; A9502; J2785

== ENCOUNTER 2018-08-11 16:34 | Observation (INO) | payer MEDICARE, OTHER, SELFPAY ==
[2018-08-11] VITALS (7 sets, daily range): BP systolic 105–136; BP diastolic 72–101; PULSE 76–97; RESP 15–20; TEMP 36.9–37; O2SAT 90–98; BMI 34.4; BMI 33.9
--- NOTE | 2018-08-11 16:39 | XR_ITS ---
XR chest 2V HISTORY: ITS.REASON: chest pain ORDERING PHYSICIAN: Teo Reveles MD PATIENT AGE: 63 years COMPARISON: 01/06/2018 FINDINGS: The cardiomediastinal silhouette and pulmonary vascularity are within normal limits. The lungs are clear without infiltrates, suspicious nodules, or pleural effusions. No acute bony abnormalities. IMPRESSION: No change with no acute finding
--- NOTE | 2018-08-11 16:40 | PC.NURSE ---
Pt states he is unable to take nitro due to some medicine he takes and was instructed by his doctors to not take nitro
--- NOTE | 2018-08-11 16:50 | HMH.CNCARD ---
History of Present Illness Consult date: 08/11/18 Consult reason: chest pain Chief complaint: chest pain Additional Medical History:: 1. Coronary disease A. History of abnormal stress test with inferior ischemia, 11/2016 B. Cardiac catheterization with subsequent drug-eluting stent placement to the RIGHT coronary artery, 11/2016. Aspirin and Effient therapy. C. Federico Myoview, 02/2017, No ischemia with inferior scar. EF 55%. D. Hospital admission for chest pain with normal troponins, 05/2017, Cardiac cath revealing patent RCA stent with insignificant CAD of true circumflex. Normal LVEF. E. Federico myoview, 07/2018, mixed inferior ischemia and scar with wall motion abnormalities. LVEF 54% 2. Previous brain surgery for benign brain mass, 1995, with resultant RIGHT facial droop A. Follows with neurology at . Recent MRI of the brain 02/2017, results pending 3. History of both ascending aortic aneurysm (4 cm) and abdominal aortic aneurysm (3.9 X 3.4 cm), with CTA of the chest and abdomen, 07/2016. A. CTA of chest, 03/08/2017, AAA at 4 cm. B. CTA of chest, 02/2018, stable. 4. Diabetes mellitus 5. Hyperlipidemia 6. Remote tobacco use discontinued approximately 2002 A. centrilobular emphysema by CTA of chest, 02/2018 History of present illness: 63-year-old white male with known coronary artery disease presented to the emergency department for complaint of chest pain. Patient relates taking a Viagra 2 days ago and has had some intermittent right-sided and substernal discomfort with radiation into the right arm off and on since then. He also relates during this time he has been cutting wood with an increase in his exertional shortness of breath. He did undergo Lexiscan Myoview earlier today, which had been previously scheduled due to his shortness of breath and known coronary disease. The results were read as abnormal with mixed ischemia and scar inferiorly with wall motion abnormalities. Patient was contacted regarding these results for an earlier appointment tomorrow. Due to the chest pain and the news of the abnormal stress test the patient decided to come to the ER for further evaluation and treatment. Cardiology consulted for evaluation and recommendations. [facility] History Medical History: Reports:: Cancer, Chronic Obstructive Pulmonary Disease (COPD), Coronary Artery Disease, Diabetes Mellitus Type 2, Hyperlipidemia, Hypertension, Lung Disease, Transient Ischemic Attacks (TIA), Ulcer Denies:: Diabetes Mellitus Type 1, Internal Pacemaker, MRSA, Seizures *Have you ever received a pneumonia vaccine?: No *Have you received a flu vaccine this season?: No Other Medical History: Reports: Anemia, Arthritis, Hypothyroidism, Thyroid Disease Other Surgeries: Yes: Angiogram, Appendectomy, Cancer Surgery, Cardiac Catheterization, Colonoscopy, Coronary Stent, Plastic Surgery, Other. No: Pacemaker Amputation: No Fractures: Yes (left wrist and arm) - *Social History Smoking Status: Former smoker Tobacco Type: cigarettes Alcohol Intake: never Alcohol Intake Frequency:: other Substance Use Type: marijuana *Occupational Status:: disabled *Travel in the last 8 weeks: None - Psychiatric History Expresses thoughts of harming self/others: None Suicide Plan Description: No Plan Family Hx:: Diabetes, Cancer, Hyperlipidemia, Heart Attack Meds Home Medications Medication Instructions Recorded Confirmed Type fluticasone 50 mcg/actuation nasal 1 spray INTRANASAL QDAY PRN 06/25/17 07/26/18 History spray,suspension hydrocodone 10 mg-acetaminophen 1 tab PO Q6HP PRN tab 06/25/17 07/26/18 History 325 mg tablet polyethylene glycol 3350 17 17 g PO QDAY PRN 06/25/17 07/26/18 History gram/dose oral powder sildenafil (antihypertensive) 20 20 mg PO QDAY PRN tab 06/25/17 07/26/18 History mg tablet Alfuzosin HCl [Alfuzosin HCl ER] 10 mg PO DAILY 01/07/18 07/26/18 History Aspirin [Aspirin 81mg EC Tab] 81 mg PO DAILY 01/07/18 07/26/18 History alb
[2018-08-11 16:52] LABS: Basophils % 0.7 % (0.1-2.0); Eosinophils # 0.1 K/mm3 (0.0-0.4); Eosinophils % 0.8 % (0.1-12.0); Hematocrit 41.6 % (42.0-52.0); Hemoglobin 14.2 g/dL (14.1-18.0); Lymphocytes % 33.4 % (10-50); Mean Corpuscular HGB Conc 34.2 g/dL (31.8-35.4); Mean Corpuscular Hemoglobin 29.4 pg (27.0-31.2); Mean Corpuscular Volume 86.2 fl (80-94); Mean Platelet Volume 7.5 fl (7.4-10.4); Monocytes # 0.4 K/mm3 (0.1-1.0); Neutrophils # 3.6 K/mm3 (1.8-7.8); Neutrophils % 58.2 % (37.0-80.0); Platelet Count 222 K/mm3 (142-424); Red Blood Count 4.83 M/mm3 (4.60-6.20); Red Cell Distribution Width 13.7 % (11.5-17.5); White Blood Count 6.1 K/mm3 (4.8-10.8)
--- NOTE | 2018-08-11 16:53 | P.CONS_ITS ---
History of Present Illness Consult date: 08/11/18 Consult reason: chest pain Chief complaint: chest pain Additional Medical History:: 1. Coronary disease A. History of abnormal stress test with inferior ischemia, 11/2016 B. Cardiac catheterization with subsequent drug-eluting stent placement to the RIGHT coronary artery, 11/2016. Aspirin and Effient therapy. C. Federico Myoview, 02/2017, No ischemia with inferior scar. EF 55%. D. Hospital admission for chest pain with normal troponins, 05/2017, Cardiac cath revealing patent RCA stent with insignificant CAD of true circumflex. Normal LVEF. E. Federico myoview, 07/2018, mixed inferior ischemia and scar with wall motion abnormalities. LVEF 54% 2. Previous brain surgery for benign brain mass, 1995, with resultant RIGHT facial droop A. Follows with neurology at . Recent MRI of the brain 02/2017, results pending 3. History of both ascending aortic aneurysm (4 cm) and abdominal aortic aneurysm (3.9 X 3.4 cm), with CTA of the chest and abdomen, 07/2016. A. CTA of chest, 03/08/2017, AAA at 4 cm. B. CTA of chest, 02/2018, stable. 4. Diabetes mellitus 5. Hyperlipidemia 6. Remote tobacco use discontinued approximately 2002 A. centrilobular emphysema by CTA of chest, 02/2018 History of present illness: 63-year-old white male with known coronary artery disease presented to the emergency department for complaint of chest pain. Patient relates taking a Viagra 2 days ago and has had some intermittent right-sided and substernal discomfort with radiation into the right arm off and on since then. He also relates during this time he has been cutting wood with an increase in his exertional shortness of breath. He did undergo Lexiscan Myoview earlier today, which had been previously scheduled due to his shortness of breath and known coronary disease. The results were read as abnormal with mixed ischemia and scar inferiorly with wall motion abnormalities. Patient was contacted regarding these results for an earlier appointment tomorrow. Due to the chest pain and the news of the abnormal stress test the patient decided to come to the ER for further evaluation and treatment. Cardiology consulted for evaluation and recommendations. [facility] History Medical History: Reports:: Cancer, Chronic Obstructive Pulmonary Disease (COPD), Coronary Artery Disease, Diabetes Mellitus Type 2, Hyperlipidemia, Hypertension, Lung Disease, Transient Ischemic Attacks (TIA), Ulcer Denies:: Diabetes Mellitus Type 1, Internal Pacemaker, MRSA, Seizures *Have you ever received a pneumonia vaccine?: No *Have you received a flu vaccine this season?: No Other Medical History: Reports: Anemia, Arthritis, Hypothyroidism, Thyroid Disease Other Surgeries: Yes: Angiogram, Appendectomy, Cancer Surgery, Cardiac Catheterization, Colonoscopy, Coronary Stent, Plastic Surgery, Other. No: Pacemaker Amputation: No Fractures: Yes (left wrist and arm) - *Social History Smoking Status: Former smoker Tobacco Type: cigarettes Alcohol Intake: never Alcohol Intake Frequency:: other Substance Use Type: marijuana *Occupational Status:: disabled *Travel in the last 8 weeks: None - Psychiatric History Expresses thoughts of harming self/others: None Suicide Plan Description: No Plan Family Hx:: Diabetes, Cancer, Hyperlipidemia, Heart Attack Meds Home Medications Medication Instructions Recorded Confirmed Type fluticasone 50 mcg/actuation nasal 1 spray INTRANASAL QDAY PRN 06/25/17 07/26/18 History spray,suspension hydrocodone 10 mg-acetaminophen
[2018-08-11 17:46] LABS: Anion Gap 15.2 mEq/L (5-15); Blood Urea Nitrogen 17 mg/dL (7-18); Calcium 9.4 mg/dL (8.5-10.1); Carbon Dioxide 26 mmol/L (21.0-32.0); Chloride 99 mmol/L (98-107); Creatinine Clearance Estimated 85 mL/min (50-200); Creatinine,Serum 1.26 mg/dL (0.70-1.30); Estimated Glomerular Filt Rate 57 ml/min (>60); GFR (African American) 69 ML/MIN (>60); Glucose 130 mg/dL (74-106); Potassium 3.2 mmoL/L (3.5-5.1); Sodium 137 mmol/L (136-145); Troponin I < 0.02 ng/ml (0.00-0.06)
--- NOTE | 2018-08-11 18:32 | HMH.EDGENADL ---
ED Disposition Clinical Impression: Coronary arteriosclerosis, Chest pain Disposition: Admitted as Observation Condition on Discharge: Good Referrals: Teo Dominguez MD [Primary Care Provider] - Time of Disposition: 18:46 - Critical Care Critical Care Time: No Attestation: On 08/11/18, the high probability of a clinically significant, sudden or life threatening deterioration of the following system(s) required my full and direct attention, intervention and personal management. The time I documented below is in addition to time spent performing reported procedures but includes the following listed in this critical care notation. Medical Decision Making - Luis Felipe Inquiry Pt receiving controlled substance: No Luis Felipe was queried for this patient: No Vital Signs: 08/11/18 16:34 08/11/18 17:13 Temperature 98.6 F Temperature Source Oral Pulse Rate [Left Radial] 97 H 84 Respiratory Rate 18 20 Blood Pressure [Right Arm] 126/101 H 105/79 L Blood Pressure Mean [Right Arm] 109 87 Blood Pressure Source [Right Arm] Automatic Cuff Automatic Cuff Blood Pressure Position [Right Arm] Sitting Sitting 02 Sat by Pulse Oximetry 98 90 L Oxygen Delivery Method Room Air Room Air - Lab Data Lab Results 08/11/18 17:07: WBC 6.1, RBC 4.83, Hgb 14.2, Hct 41.6 L, MCV 86.2, MCH 29.4, MCHC 34.2, RDW 13.7, Plt Count 222, MPV 7.5, Neut % (Auto) 58.2, Lymph % (Auto) 33.4, [place] % (Auto) 7.0, Eos % (Auto) 0.8, Baso % (Auto) 0.7, Neut # (Auto) 3.6, Lymph # (Auto) 2.0, [place] # (Auto) 0.4, Eos # (Auto) 0.1, Baso # (Auto) 0.0 08/11/18 17:07: Sodium 137, Potassium 3.2 L, Chloride 99, Carbon Dioxide 26, Anion Gap 15.2 H, BUN 17, Creatinine 1.26, Estimated Creat Clear 85, Estimated GFR 57 L, Est GFR ( Amer) 69, Glucose 130 H, Calcium 9.4, Troponin I < 0.02 Result diagrams: 08/11/18 17:07 08/11/18 17:07 Orders (Tests/Meds): ED MEDICATIONS Generic Name Dose Route Start Last Admin Trade Name Freq PRN Reason Stop Dose Admin Fentanyl Citrate 25 mcg 08/11/18 17:13 Fentanyl 250mcg/5ml Vial IV 08/12/18 17:13 Q3MINP PRN Moderate to Severe Pain Fentanyl Citrate 50 mcg 08/11/18 17:13 Fentanyl 250mcg/5ml Vial IV 08/12/18 17:13 Q3MINP PRN Moderate to Severe Pain Flumazenil 0.2 mg 08/11/18 17:13 Romazicon 0.1mg/Ml 5ml Vial IV 08/11/18 23:00 NEEDED PRN Sedation Metoprolol Tartrate 25 mg 08/11/18 21:00 Lopressor 50mg Tablet PO 09/10/18 20:59 BID EZ Midazolam HCl 1 mg 08/11/18 17:13 Midazolam 2mg/2ml Vial IV 08/12/18 17:13 Q3MINP PRN Sedation Midazolam HCl 1 mg 08/11/18 17:13 Midazolam 1mg/Ml 5ml Vial IV 08/12/18 17:13 Q3MINP PRN Sedation Naloxone HCl 0.4 mg 08/11/18 17:13 Narcan 0.4mg/Ml Vial IV 08/12/18 17:13 Q5MINP PRN Decreased respirations Nitroglycerin 0.5 gm 08/11/18 17:15 Nitroglycerin 1 Inch Oint Udp TD 09/10/18 17:14 Q8H EZ Sodium Chloride 10 ml 08/11/18 17:13 Saline Flush 10ml Syringe IV 09/10/18 17:12 NEEDED PRN Maintain IV Site Discontinued Medications Generic Name Dose Route Start Last Admin Trade Name Carmela PRN Reason Stop Dose Admin Aspirin 324 mg 08/11/18 16:39 08/11/18 16:41 Aspirin 81mg Chewable Tablet PO 08/11/18 16:40 324 mg ONCE ONE Administration ORDERS Category Date Time Status XR chest 2V Stat Exams 08/11/18 16:39 Taken ECG Request by /Nse Stat Y 08/11/18 16:39 Ordered General Adult HPI - General Chief complaint: Chest Pain Stated complaint: chest pain Time Seen by Provider: 08/11/18 18:38 Mode of Arrival: Ambulatory Limitations: No Limitations Description of Sympto
--- NOTE | 2018-08-11 18:37 | ED_ITS ---
ED Disposition Clinical Impression: Coronary arteriosclerosis, Chest pain Disposition: Admitted as Observation Condition on Discharge: Good Referrals: Teo Dominguez MD [Primary Care Provider] - Time of Disposition: 18:46 - Critical Care Critical Care Time: No Attestation: On 08/11/18, the high probability of a clinically significant, sudden or life threatening deterioration of the following system(s) required my full and direct attention, intervention and personal management. The time I documented below is in addition to time spent performing reported procedures but includes the following listed in this critical care notation. Medical Decision Making - Luis Felipe Inquiry Pt receiving controlled substance: No Luis Felipe was queried for this patient: No Vital Signs: 08/11/18 16:34 08/11/18 17:13 Temperature 98.6 F Temperature Source Oral Pulse Rate [Left Radial] 97 H 84 Respiratory Rate 18 20 Blood Pressure [Right Arm] 126/101 H 105/79 L Blood Pressure Mean [Right Arm] 109 87 Blood Pressure Source [Right Arm] Automatic Cuff Automatic Cuff Blood Pressure Position [Right Arm] Sitting Sitting 02 Sat by Pulse Oximetry 98 90 L Oxygen Delivery Method Room Air Room Air - Lab Data Lab Results 08/11/18 17:07: WBC 6.1, RBC 4.83, Hgb 14.2, Hct 41.6 L, MCV 86.2, MCH 29.4, MCHC 34.2, RDW 13.7, Plt Count 222, MPV 7.5, Neut % (Auto) 58.2, Lymph % (Auto) 33.4, [place] % (Auto) 7.0, Eos % (Auto) 0.8, Baso % (Auto) 0.7, Neut # (Auto) 3.6, Lymph # (Auto) 2.0, [place] # (Auto) 0.4, Eos # (Auto) 0.1, Baso # (Auto) 0.0 08/11/18 17:07: Sodium 137, Potassium 3.2 L, Chloride 99, Carbon Dioxide 26, Anion Gap 15.2 H, BUN 17, Creatinine 1.26, Estimated Creat Clear 85, Estimated GFR 57 L, Est GFR ( Amer) 69, Glucose 130 H, Calcium 9.4, Troponin I < 0.02 Result diagrams: 08/11/18 17:07 08/11/18 17:07 Orders (Tests/Meds): ED MEDICATIONS Generic Name Dose Route Start Last Admin Trade Name Deandreq PRN Reason Stop Dose Admin Fentanyl Citrate 25 mcg 08/11/18 17:13 Fentanyl 250mcg/5ml Vial IV 08/12/18 17:13 Q3MINP PRN Moderate to Severe Pain Fentanyl Citrate 50 mcg 08/11/18 17:13 Fentanyl 250mcg/5ml Vial IV 08/12/18 17:13 Q3MINP PRN Moderate to Severe Pain Flumazenil 0.2 mg 08/11/18 17:13 Romazicon 0.1mg/Ml 5ml Vial IV 08/11/18 23:00 NEEDED PRN Sedation Metoprolol Tartrate 25 mg 08/11/18 21:00 Lopressor 50mg Tablet PO 09/10/18 20:59 BID EZ Midazolam HCl 1 mg 08/11/18 17:13 Midazolam 2mg/2ml Vial IV 08/12/18 17:13 Q3MINP PRN Sedation Midazolam HCl 1 mg 08/11/18 17:13 Midazolam 1mg/Ml 5ml Vial IV 08/12/18 17:13 Q3MINP PRN Sedation Naloxone HCl 0.4 mg 08/11/18 17:13 Narcan 0.4mg/Ml Vial IV 08/12/18 17:1
--- NOTE | 2018-08-11 19:38 | PC.NURSE ---
attempted to call report on patient, but the telemetry monitors on med surge are not functioning at this time, and i am unable to call report. will continue to monitor patient in ed
--- NOTE | 2018-08-11 21:41 | PC.NURSE ---
pt c/o johnson horse like pain in his legs and arms. pt takes lortab qid, and has only had 2 today. pt requesting to see dr cuellar.
--- NOTE | 2018-08-11 21:44 | PC.NURSE ---
spoke to second floor to see if patient was able to be transferred up there yet, i was told the [facility] rep was still working on telemetry systems
--- NOTE | 2018-08-11 22:17 | PC.NURSE ---
spoke to dr cuellar about giving patient his night time doses of home meds: lipitor 40mg, lorazepam 0.5mg, metformin 500mg, and metoprolol 25mg. Md stated ok to give at this time.
[2018-08-12] VITALS (11 sets, daily range): BP systolic 71–106; BP diastolic 34–63; PULSE 45–72; RESP 16–20; TEMP 36.1–37.2; O2SAT 90–99
--- NOTE | 2018-08-12 | IR_ITS ---
CARDIAC CATHETERIZATION DATE OF CATHETERIZATION:08/12/2018 12:36 PM PROCEDURES: 1. Left heart catheterization 2. Left ventriculogram 3. Selective coronary angiogram INDICATION FOR TEST: 1. Acute coronary syndrome 2. Known coronary artery disease 3. Abnormal Myoview Informed consent was obtained prior to the procedure. COMPLICATIONS: None ESTIMATED BLOOD LOSS: Less than 10 ml. TECHNIQUE: One percent lidocaine used to anesthetize the right anterior aspect of the wrist. The right radial artery was accessed via the Seldinger technique. A 6 Slovak sheath was placed in the right radial artery. 2.5 mg of verapamil, 800 mcg of nitroglycerin, 1mg Lidocaine and 5000 U Heparin were given through the arterial sheath. The trap catheter was also used to perform left heart catheterization, left ventriculogram and selective coronary angiogram. At the end of the procedure the sheath was removed good hemostasis was achieved using Traclet band, patient was transferred to the postop holding area in stable condition . ANGIOGRAPHIC RESULTS: 1. The left main artery normal 2. The left anterior descending artery has proximal mild 10% stenoses and mid vessel 10-20% stenoses. WINSOME II flow is present down the LAD system 3. The circumflex artery is nondominant and has mild 10% luminal irregularities 4. The right coronary artery is a dominant large vessel and has a stent in the proximal to mid segment which has mild concentric in-stent restenosis followed which is nonflow limiting. Distally there are tendon 20% stenoses in the [place] right coronary artery and very large posterior descending and posterior lateral branch 5. The LOCK ventriculogram reveals preserved at 55% 6. The left ventricular end-diastolic pressure 10 mmHg IMPRESSION: 1. Widely patent stent as described above 2. Slow flow down the LAD system consistent with endothelial dysfunction 3. Preserved ejection fraction 4. Normal left ventricular end-diastolic pressure PLAN: 1. Medical management
[2018-08-12 01:08] LABS: Troponin I < 0.02 ng/ml (0.00-0.06)
--- NOTE | 2018-08-12 03:31 | PC.NURSE ---
A&OX4. 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 PT. HAS NOT C/O CP, DIZZINESS, OR SOB. PT. C/O H/A AND NAUSEA; TX WITH TYLENOL AND ZOFRAN PER MAR; UPON POST-ASSESSMENT PT. NOTED TO BE RESTING IN BED WITH EYES CLOSED. IV PATENT AND INFUSING SHOWING NO S/S OF INFILTRATION. VSS. WILL CONTINUE TO MONITOR.
[2018-08-12 03:54] LABS: Troponin I < 0.02 ng/ml (0.00-0.06)
[2018-08-12 06:38] LABS: Basophils # 0.1 K/mm3 (0-0.2); Eosinophils # 0.1 K/mm3 (0.0-0.4); Eosinophils % 1.3 % (0.1-12.0); Hematocrit 38.5 % (42.0-52.0); Hemoglobin 12.9 g/dL (14.1-18.0); Lymphocytes # 2.3 K/mm3 (0.7-4.5); Lymphocytes % 41.7 % (10-50); Mean Corpuscular HGB Conc 33.5 g/dL (31.8-35.4); Mean Corpuscular Hemoglobin 29.1 pg (27.0-31.2); Mean Corpuscular Volume 86.7 fl (80-94); Mean Platelet Volume 6.9 fl (7.4-10.4); Monocytes # 0.4 K/mm3 (0.1-1.0); Monocytes % 7.2 % (1.7-9.3); Neutrophils # 2.7 K/mm3 (1.8-7.8); Neutrophils % 48.9 % (37.0-80.0); Platelet Count 211 K/mm3 (142-424); Red Blood Count 4.43 M/mm3 (4.60-6.20); Red Cell Distribution Width 13.8 % (11.5-17.5); White Blood Count 5.6 K/mm3 (4.8-10.8)
[2018-08-12 06:43] LABS: Anion Gap 12.5 mEq/L (5-15); Blood Urea Nitrogen 18 mg/dL (7-18); Calcium 8.9 mg/dL (8.5-10.1); Carbon Dioxide 30 mmol/L (21.0-32.0); Chloride 102 mmol/L (98-107); Creatinine Clearance Estimated 88 mL/min (50-200); Estimated Glomerular Filt Rate 61 ml/min (>60); GFR (African American) 74 ML/MIN (>60); Glucose 113 mg/dL (74-106); Potassium 3.5 mmoL/L (3.5-5.1); Sodium 141 mmol/L (136-145)
[2018-08-12 06:59] LABS: POC Glucose,Bedside 105 (70-110)
--- NOTE | 2018-08-12 08:22 | HMH.PHAVTE ---
[facility] Pharmacy VTE Monitoring - Patient Demographics Admission date: 08/11/18 Report Date: 08/12/18 Time: 08:22 Allergies/Adverse Reactions: Patient Allergies latex [LATEX] Allergy (Unknown, Verified 07/26/18 12:27) Penicillins [PENICILLINS] Allergy (Unknown, Verified 07/26/18 12:27) Sulfa (Sulfonamide Antibiotics) [SULFA (SULFONAMIDE ANTIBIOTICS)] Allergy (Unknown, Verified 07/26/18 12:27) Height: 1.73 m Weight: 101.179 kg Patient Problems: Current Active Problems (Last Updated 12/11/17 @ 18:41 by LOUIE Landin) Chest pain (Chronic) Coronary arteriosclerosis (Chronic) - VTE Risk Labs: VTE Related Lab Results Hgb 12.9 g/dL (14.1-18.0) L 08/12/18 05:55 Hct 38.5 % (42.0-52.0) L 08/12/18 05:55 Plt Count 211 K/mm3 (142-424) 08/12/18 05:55 BUN 18 mg/dL (7-18) 08/12/18 05:55 Creatinine 1.20 mg/dL (0.70-1.30) 08/12/18 05:55 Estimated Creat Clear 88 mL/min (50-200) 08/12/18 05:55 Was VTE Risk Assessment Performed: Yes VTE Risk Level: Very Low Risk Clinical Trial Participant: No - Prophylaxis VTE Prophylaxis Ordered?: Yes Types of VTE Prophylaxis: TEDS Knee High
--- NOTE | 2018-08-12 08:34 | HMH.PNCARD ---
Subjective Date: 08/12/18 Time: 08:34 Principal diagnosis: lightheadedness, chest pressure Interval history: 63 yo WM in bed. Still with right sided and right arm discomfort that is worse with movement. Known DDD with neuropathy for which he has seen Dr. Gann in the past. Pt is on chronic pain meds and anti-spasmodic/muscle relaxers. Troponins normal overnight. Exam Vital signs and Labs for Last 24 Hours: Temp Pulse Resp BP Pulse Ox 98.5 F 57 L 16 89/58 L 94 L 08/12/18 08:00 08/12/18 08:00 08/12/18 08:00 08/12/18 08:00 08/12/18 08:00 Laboratory Results - last 24 hr 08/11/18 17:07: WBC 6.1, RBC 4.83, Hgb 14.2, Hct 41.6 L, MCV 86.2, MCH 29.4, MCHC 34.2, RDW 13.7, Plt Count 222, MPV 7.5, Neut % (Auto) 58.2, Lymph % (Auto) 33.4, [place] % (Auto) 7.0, Eos % (Auto) 0.8, Baso % (Auto) 0.7, Neut # (Auto) 3.6, Lymph # (Auto) 2.0, [place] # (Auto) 0.4, Eos # (Auto) 0.1, Baso # (Auto) 0.0 08/11/18 17:07: Sodium 137, Potassium 3.2 L, Chloride 99, Carbon Dioxide 26, Anion Gap 15.2 H, BUN 17, Creatinine 1.26, Estimated Creat Clear 85, Estimated GFR 57 L, Est GFR ( Amer) 69, Glucose 130 H, Calcium 9.4, Troponin I < 0.02 08/12/18 00:40: Troponin I < 0.02 08/12/18 03:30: Troponin I < 0.02 08/12/18 05:55: WBC 5.6, RBC 4.43 L, Hgb 12.9 L, Hct 38.5 L, MCV 86.7, MCH 29.1, MCHC 33.5, RDW 13.8, Plt Count 211, MPV 6.9 L, Neut % (Auto) 48.9, Lymph % (Auto) 41.7, [place] % (Auto) 7.2, Eos % (Auto) 1.3, Baso % (Auto) 1.0, Neut # (Auto) 2.7, Lymph # (Auto) 2.3, [place] # (Auto) 0.4, Eos # (Auto) 0.1, Baso # (Auto) 0.1 08/12/18 05:55: Sodium 141, Potassium 3.5, Chloride 102, Carbon Dioxide 30, Anion Gap 12.5, BUN 18, Creatinine 1.20, Estimated Creat Clear 88, Estimated GFR 61, Est GFR ( Amer) 74, Glucose 113 H, Calcium 8.9 08/12/18 06:50: POC Glucose 105 I & O for Last 24 hours: Intake & Output 08/09/18 08/10/18 08/11/18 08/12/18 11:59 11:59 11:59 11:59 Intake Total 229 / 229 Balance 229 / 229 Weight 223 lb 1 oz - *Routine HEENT Exam Head: Present: normocephalic Eye: Present: EOMI, PERRL ENT: Present: mucous membranes moist - *Routine Respiratory Exam Present: CTA bilaterally. Absent: accessory muscle use, rales, rhonchi, wheezes - *Routine Cardiovascular Exam Present: RRR. Absent: murmur, gallop, rubs - *Routine Abdominal Exam Present: soft. Absent: tenderness, distended, guarding - *Routine Neurological Exam Present: alert, oriented X3, moving all extremities Progress Note: A&P (1) Chest pain Status: Chronic Current Visit: Yes (2) Abnormal cardiovascular stress test Status: Acute Current Visit: Yes (3) Coronary arteriosclerosis Status: Chronic Current Visit: Yes (4) Abdominal aortic aneurysm Status: Chronic Current Visit: No (5) Diabetes mellitus Status: Chronic Current Visit: No (6) Hyperlipidemia Status: Chronic Current Visit: No (7) Hypertensive heart disease Status: Chronic Current Visit: No (8) Stented coronary artery Status: Chronic Current Visit: No (9) Obesity (BMI 30-39.9) Status: Acute Current Visit: No Assessment and Plan for All Diagnoses:: Continue current meds. Going for [facility] today. Restart home pain meds. Further recommendations to follow.
--- NOTE | 2018-08-12 08:39 | P.PN_ITS ---
Addendum entered and electronically signed by LOUIE Jackson 08/12/18 13:41: Cardiac cath report: 08/12/2018 ANGIOGRAPHIC RESULTS: 1. The left main artery normal 2. The left anterior descending artery has proximal mild 10% stenoses and mid vessel 10-20% stenoses. WINSOME II flow is present down the LAD system 3. The circumflex artery is nondominant and has mild 10% luminal irregularities 4. The right coronary artery is a dominant large vessel and has a stent in the proximal to mid segment which has mild concentric in-stent restenosis followed which is nonflow limiting. Distally there are tendon 20% stenoses in the [place] right coronary artery and very large posterior descending and posterior lateral branch 5. The LOCK ventriculogram reveals preserved at 55% 6. The left ventricular end-diastolic pressure 10 mmHg IMPRESSION: 1. Widely patent stent as described above 2. Slow flow down the LAD system consistent with endothelial dysfunction 3. Preserved ejection fraction 4. Normal left ventricular end-diastolic pressure PLAN: 1. Medical management In light of cath results, will reduce metoprolol to 12.5 mg BID (due to low BP) and add ranexa 500 mg BID for the endothelial dysfunction. He could be discharged home later today with follow up in 1-2 wks. Addendum entered and electronically signed by LOUIE Jackson 08/12/18 13:37: DISREGARD THE ADDENDUM DATED 08/12/2018 AT 13:35 PM. ENTERED ON THE WRONG PATIENT. Addendum entered and electronically signed by LOUIE Jackson 08/12/18 13:35: Cath shows mild CAD with hyperdynamic LVEF with mild elevation of LVEDP. OK for discharge home on Cardizem. Recommend outpatient holter to look for bradycardia and a. fib. Follow up in 1-2 wks Original Note: Subjective Date: 08/12/18 Time: 08:34 Principal diagnosis: lightheadedness, chest pressure Interval history: 63 yo WM in bed. Still with right sided and right arm discomfort that is worse with movement. Known DDD with neuropathy for which he has seen Dr. Gann in the past. Pt is on chronic pain meds and anti-spasmodic/muscle relaxers. Troponins normal overnight. Exam Vital signs and Labs for Last 24 Hours: Temp Pulse Resp BP Pulse Ox 98.5 F 57 L 16 89/58 L 94 L 08/12/18 08:00 08/12/18 08:00 08/12/18 08:00 08/12/18 08:00 08/12/18 08:00 Laboratory Results - last 24 hr 08/11/18 17:07: WBC 6.1, RBC 4.83, Hgb 14.2, Hct 41.6 L, MCV 86.2, MCH 29.4, MCHC 34.2, RDW 13.7, Plt Count 222, MPV 7.5, Neut % (Auto) 58.2, Lymph % (Auto) 33.4, [place] % (Auto) 7.0, Eos % (Auto) 0.8, Baso % (Auto) 0.7, Neut # (Auto) 3.6, Lymph # (Auto) 2.0, [place] # (Auto) 0.4, Eos # (Auto) 0.1, Baso # (Auto) 0.0 08/11/18 17:07: Sodium 137, Potassium 3.2 L, Chloride 99, Carbon Dioxide 26, Anion Gap 15.2 H, BUN 17, Creatinine 1.26, Estimated Creat Clear 85, Estimated GFR 57 L, Est GFR ( Amer) 69, Glucose 130 H, Calcium 9.4, Troponin I < 0.02 08/12/18 00:40: Troponin I < 0.02 08/12/18 03:30: Troponin I < 0.02 08/12/18 05:55: WBC 5.6, RBC 4.43 L, Hgb 12.9 L, Hct 38.5 L, MCV 86.7, MCH 29.1, MCHC 33.5, RDW 13.8, Plt Count 211, MPV 6.9 L, Neut % (Auto) 48.9, Lymph % (Auto) 41.7, [place] % (Auto) 7.2, Eos % (Auto) 1.3, Baso % (Auto) 1.0, Neut # (Auto) 2.7, Lymph # (Auto) 2.3, [place] # (Auto) 0.4, Eos # (Auto) 0.1, Baso # (Auto) 0.1 08/12/18 05:55: Sodium 141, Potassium 3.5, Chloride 102, Carbon Dioxide 30, A nion Gap 12.5, BUN 18, Creatinine 1.20, Estimated Creat Clear 88, Estimated GFR 61, Est GFR ( Amer) 74, Glucose 113 H, Calcium 8.9 08/12/18 06:50: POC Gluc
--- NOTE | 2018-08-12 10:10 | PC.NURSE ---
patient sitting up in bed. no needs voiced at this time.
[2018-08-12 11:44] LABS: POC Glucose,Bedside 115 (70-110)
--- NOTE | 2018-08-12 14:27 | HMH.HPDC ---
General - General Admission date:: 08/11/18 Discharge date: 08/12/18 *Admission Date: 08/11/18 *Chief complaint: chest pain *History of present illness: 63-year-old male with known coronary artery disease presented to the emergency department for complaint of chest pain. Patient relates taking a Viagra 2 days ago and has had some intermittent right-sided and substernal discomfort with radiation into the right arm off and on since then. He also relates during this time he has been cutting wood with an increase in his exertional shortness of breath. Lexiscan Myoview results were read as abnormal with mixed ischemia and scar inferiorly with wall motion abnormalities. Cardiology consulted for evaluation and recommendations. [facility] History I have reviewed the patient's past medical history: Yes Medical History: Reports:: Cancer, Chronic Obstructive Pulmonary Disease (COPD), Coronary Artery Disease, Diabetes Mellitus Type 2, Hyperlipidemia, Hypertension, Lung Disease, Transient Ischemic Attacks (TIA), Ulcer Denies:: Diabetes Mellitus Type 1, Internal Pacemaker, MRSA, Seizures *Have you ever received a pneumonia vaccine?: No *Have you received a flu vaccine this season?: Yes Other Medical History: Reports: Anemia, Arthritis, Hypothyroidism, Thyroid Disease Other Surgeries: Yes: Angiogram, Appendectomy, Cancer Surgery, Cardiac Catheterization, Colonoscopy, Coronary Stent, Plastic Surgery, Other. No: Pacemaker Amputation: No Fractures: Yes (left wrist and arm) - *Social History Educational Level: Completed GED/General Educational Development Smoking Status: Former smoker Tobacco Type: cigarettes # Packs/Day (cigarettes): 4 Alcohol Intake: former Alcohol Intake Frequency:: other Substance Use Type: marijuana *Occupational Status:: disabled Housing: house Household Members: spouse, adopted family *Travel in the last 8 weeks: None - Psychiatric History Expresses thoughts of harming self/others: None Suicide Plan Description: No Plan Family Hx:: Cancer, Diabetes, Heart Attack, Hyperlipidemia, Stroke Review of Systems - Constitutional Denies chills - Eyes Denies change in vision - ENT Denies change in voice - *Cardiovascular Reports chest pain, Reports chest pain at rest, Reports chest pain with activity, Reports shortness of breath - *Respiratory Reports shortness of breath with activity - *Gastrointestinal Denies heartburn - *Genitourinary Denies painful urination - *Musculoskeletal Denies neck pain - Integumentary/Breasts Denies rash - *Neurologic Denies abnormal movements, Denies fainting - Psychiatric Denies anxiety - Endocrine Denies heat intolerance - Hematologic/Lymphatic Denies enlarged lymph nodes - Allergic/Immunologic Denies lip swelling Exam Vital signs and Labs for Last 24 Hours: Temp Pulse Resp BP Pulse Ox 97 F L 57 L 16 101/58 L 92 L 08/12/18 13:35 08/12/18 14:25 08/12/18 14:25 08/12/18 14:25 08/12/18 14:25 Laboratory Results - last 24 hr 08/11/18 17:07: WBC 6.1, RBC 4.83, Hgb 14.2, Hct 41.6 L, MCV 86.2, MCH 29.4, MCHC 34.2, RDW 13.7, Plt Count 222, MPV 7.5, Neut % (Auto) 58.2, Lymph % (Auto) 33.4, [place] % (Auto) 7.0, Eos % (Auto) 0.8, Baso % (Auto) 0.7, Neut # (Auto) 3.6, Lymph # (Auto) 2.0, [place] # (Auto) 0.4, Eos # (Auto) 0.1, Baso # (Auto) 0.0 08/11/18 17:07: Sodium 137, Potassium 3.2 L, Chloride 99, Carbon Dioxide 26, Anion Gap 15.2 H, BUN 17, Creatinine 1.26, Estimated Creat Clear 85, Estimated GFR 57 L, Est GFR ( Amer) 69, Glucose 130 H, Calcium 9.4, Troponin I < 0.02 08/12/18 00:40: Troponin I < 0.02 08/12/18 03:30: Troponin I < 0.02 08/12/18 05:55: WBC 5.6, RBC 4.43 L, Hgb 12.9 L, Hct 38.5 L, MCV 86.7, MCH 29.1, MCHC 33.5, RDW 13.8, Plt Count 211, MPV 6.9 L, Neut % (Auto) 48.9, Lymph % (Auto) 41.7, [place] % (Auto) 7.2, Eos % (Auto) 1.3, Baso % (Auto) 1.0, Neut # (Auto) 2.7, Lymph # (Auto) 2.3, [place] # (Auto) 0.4, Eos # (Auto) 0.1, Baso # (Auto) 0.1 08/12/18
--- NOTE | 2018-08-12 16:16 | HMH.PHAINT ---
Discharge counseling performed on patient. Verified that three new prescriptions were sent to [facility]: Ranexa, Hyzaar, and Metoprolol. Exaplined purpose of these medications to patient and how to take them. Went over discontinued medications including sildenafil, PPI, and Zofran. Instructed patient to continue all other medications. Patient verbalized understanding.
--- NOTE | 2018-08-12 18:26 | PC.NURSE ---
[employer] VITAL SIGNS 1435 108/67 , P 48, R 20, T 95.6 TEMP, 96% RA 1505 107/71, P 56, R 18, T 95.5 TEMP, 94% RA 1535 86/59 , P 56, R 20, T 95.358 TEMP, 93% RA 1605 88/53, P 58, R 20, T 95.8 TEMP, 93% RA 1635 91/64, P 54, R 20, T 96.0 TEMP, 93% RA
--- NOTE | 2018-08-12 18:30 | PC.NURSE ---
SEE [employer] VITALS IN NURSES NOTE
== END 2018-08-12 17:15 | disposition home or self-care (01) ==
LOC: ER 18:46 → 2ND 19:25
PROVIDERS: Internal Medicine; Admitting Provider Emergency Medicine; Emergency Provider Emergency Medicine; PCP Emergency Medicine; Visit Provider Emergency Medicine
DX: I25.10 Atherosclerotic heart disease of native coronary artery without angina pectoris (principal); I71.4 Abdominal aortic aneurysm, without rupture; E11.9 Type 2 diabetes mellitus without complications; E78.5 Hyperlipidemia, unspecified; I11.9 Hypertensive heart disease without heart failure; Z95.5 Presence of coronary angioplasty implant and graft; R94.39 Abnormal result of other cardiovascular function study; E66.9 Obesity, unspecified; R11.2 Nausea with vomiting, unspecified; Z86.69 Personal history of other diseases of the nervous system and sense organs; Z86.79 Personal history of other diseases of the circulatory system; Z86.73 Personal history of transient ischemic attack (TIA), and cerebral infarction without residual deficits; R07.9 Chest pain, unspecified; R06.02 Shortness of breath; Z87.891 Personal history of nicotine dependence; Z88.0 Allergy status to penicillin; Z88.2 Allergy status to sulfonamides; Z91.040 Latex allergy status; Z79.899 Other long term (current) drug therapy
CPT/HCPCS: 36415; 71046; 78452; 80048; 82962; 84484; 85025; 93005; 93017; 93306; 93458; 99152; 99284; A9502; C1725; C1769; G0378; J1644; J2405; J2785; Q9966

== ENCOUNTER → 2018-08-29 13:38 | Outpatient (CLI) | payer MEDICARE, OTHER, SELFPAY | PROVIDERS: PCP Emergency Medicine; Visit Provider Emergency Medicine | DX: R07.81 Pleurodynia (principal); M54.2 Cervicalgia ==

== ENCOUNTER → 2018-09-19 15:08 | Outpatient (CLI) | payer MEDICARE, OTHER, SELFPAY | PROVIDERS: PCP Emergency Medicine; Visit Provider Emergency Medicine | DX: M54.6 Pain in thoracic spine (principal) | CPT/HCPCS: 72146 ==

== ENCOUNTER → 2018-09-20 15:18 | Outpatient (CLI) | payer MEDICARE, OTHER, SELFPAY ==
--- NOTE | 2018-09-20 15:20 | MR_ITS ---
MR cervical spine wo con, HISTORY: Neck pain, upper chest and back pain and pain between scapula X2-3months. Bilateral arm pain. RT hand numbness and tingling. No prior surgery. ITS.REASON: neck pain ORDERING PHYSICIAN: Teo Dominguez MD PATIENT AGE: 63 years Comparison: MR 01-16-13. CT 03-10-16. TECHNIQUE: Standard multiplanar multiecho sequences are performed without contrast. 3-D MIP and myelographic images are also rendered and reviewed FINDINGS: There is normal alignment. No acute fracture or dislocation is evident. There is mild multilevel degenerative disc disease with decrease in the disc spaces.. There is mild anterolisthesis of C6 on C7 of 3 to 4 mm.. There is minimal prominence of the central canal at T2 which is more apparent on a subsequent C-spine MRI of 09/20/2018. Small central disc protrusion noted at T2-T3 without impingement. Small left paracentral disc protrusion at T4-T5 with mild flattening of the anterior left aspect of the cord. A Schmorl's node is present at the T10-T11 disc space posteriorly with slight increased T2 signal along the margin of the Schmorl's node. Minimal right paracentral disc protrusion without impingement also present at this level. There is minimal left paracentral disc protrusion at T11-T12 with mild narrowing of that foramen. There is multilevel degenerative disc disease from T1 to T12. IMPRESSION: Thoracic spinal spondylosis with multilevel degenerative disc disease and small protruding discs as described above. Please see above for detailed description. There is mild flattening upon the anterior left aspect of the cord at the T4-T5 level from a small left paracentral disc protrusion
== END ==
PROVIDERS: PCP Emergency Medicine; Visit Provider Emergency Medicine
DX: M54.2 Cervicalgia (principal); M54.6 Pain in thoracic spine
CPT/HCPCS: 72141; 76376

== ENCOUNTER → 2018-10-13 12:17 | Outpatient (POV) | payer MEDICARE, OTHER, SELFPAY | PROVIDERS: Visit Provider Neurological Surgery | DX: Z00.00 Encounter for general adult medical examination without abnormal findings (principal) ==

== ENCOUNTER → 2019-02-28 08:40 | Outpatient (CLI) | payer MEDICARE, OTHER, SELFPAY ==
--- NOTE | 2019-02-28 08:49 | US_ITS ---
PROCEDURE: US AORTA CLINICAL INDICATION: AAA Follow-up aortic aneurysm COMPARISON: [id number] CT abdomen pelvis w con from 07/04/2018 FINDINGS: Fusiform dilatation is present involving the mid lower abdominal aorta measuring up to 4 cm AP and 3.3 cm transverse. Common iliacs are unremarkable IMPRESSION: 4 cm infrarenal abdominal aortic aneurysm not significantly changed compared to the previous CT scan Dictated by: Phillip Mitchell MD 02/28/2019 10:32 Signed by: <Electronically signed by Phillip Mitchell MD in [place]> 02/28/2019 10:32
[2019-02-28 08:58] LABS: Blood Urea Nitrogen 15 mg/dL (7-18)
[2019-02-28 08:59] LABS: Creatinine,Serum 1.04 mg/dL (0.70-1.30); Estimated Glomerular Filt Rate 72 ml/min (>60); GFR (African American) 87 ML/MIN (>60)
[2019-02-28 10:24] LABS: Alanine Aminotransferase 37 U/L (12-78); Albumin Level 3.6 gm/dL (3.4-5.0); Alkaline Phosphatase 77 U/L (46-116); Aspartate Amino Transferase 22 U/L (15-37); Bilirubin,Direct 0.1 mg/dL (0.0-0.2); Bilirubin,Indirect 0.4 mg/dL (0.0-0.9); Bilirubin,Total 0.5 mg/dL (0.2-1.0); Cholesterol 133 mg/dL (140-200); HDL Cholesterol 33 mg/dL (27-67); LDL Cholesterol 69 mg/dL (0-130); Total Protein,Serum 6.3 gm/dL (6.4-8.2); Triglycerides 153 mg/dL (30-200); VLDL Cholesterol 31 mg/dL (0-40)
--- NOTE | 2019-02-28 13:52 | CT_ITS ---
PROCEDURE: CT ANGIO CHEST CLINCIAL INDICATION: thoracic aneurysm Follow-up thoracic aortic aneurysm COMPARISON: [facility] CT angio chest from 03/17/2018 TECHNIQUE: IV Contrast: 70ML OPTIRAY 350 Axial images obtained with sagittal and coronal reformats. All CT scans at the facility use one or more dose reduction, viz: automated exposure control, ma/kV adjustment per patient size (including targeted exams where dose is matched to indication, i.e. head), or iterative reconstruction technique. FINDINGS: No change mild ectasia of the ascending thoracic aorta at 3.7 cm. No evidence of aortic dissection. There is mild atheromatous plaque in the aortic arch. Unremarkable pulmonary arteries. Normal heart size. Mild biapical nodularity unchanged. Mild centrilobular emphysema.. There are mild dependent changes in the lung bases IMPRESSION: Stable CT appearance of the chest. No change mild ectasia of the ascending thoracic aorta Dictated by: Phillip Mitchell MD 03/01/2019 11:31 Signed by: <Electronically signed by Phillip Mitchell MD in [place]> 03/01/2019 11:31
== END ==
PROVIDERS: PCP Emergency Medicine; Visit Provider Nurse Practitioner Family
DX: E78.5 Hyperlipidemia, unspecified (principal); I11.9 Hypertensive heart disease without heart failure; I25.10 Atherosclerotic heart disease of native coronary artery without angina pectoris; I71.2 Thoracic aortic aneurysm, without rupture; I71.4 Abdominal aortic aneurysm, without rupture; Z95.5 Presence of coronary angioplasty implant and graft; E66.9 Obesity, unspecified
CPT/HCPCS: 36415; 71275; 76770; 80061; 80076; 82565; 84520; Q9967

== ENCOUNTER → 2019-03-31 14:08 | Outpatient (CLI) | payer MEDICARE, OTHER, SELFPAY ==
[2019-04-02 06:39] LABS: Creatinine, Urine 356.3 mg/dL (Not Estab.); Microalbumin, Urine 28.7 ug/mL (Not Estab.)
== END ==
PROVIDERS: Visit Provider Emergency Medicine
DX: E11.9 Type 2 diabetes mellitus without complications (principal); R07.9 Chest pain, unspecified; R10.9 Unspecified abdominal pain; Z79.84 Long term (current) use of oral hypoglycemic drugs
CPT/HCPCS: 82043; 82570

== ENCOUNTER → 2019-04-06 14:21 | Outpatient (CLI) | payer MEDICARE, OTHER, SELFPAY ==
[2019-04-06 16:26] LABS: Alanine Aminotransferase 21 U/L (12-78); Albumin Level 3.8 gm/dL (3.4-5.0); Albumin/Globulin Ratio 1.4 (1.1-1.8); Alkaline Phosphatase 84 U/L (46-116); Anion Gap 13.7 mEq/L (5-15); Aspartate Amino Transferase 11 U/L (15-37); Bilirubin,Total 0.5 mg/dL (0.2-1.0); Blood Urea Nitrogen 17 mg/dL (7-18); Carbon Dioxide 28 mmol/L (21.0-32.0); Chloride 105 mmol/L (98-107); Chol/HDL Ratio 3.9 (1-3.5); Cholesterol 145 mg/dL (140-200); Creatinine,Serum 1.18 mg/dL (0.70-1.30); Estimated Glomerular Filt Rate 62 ml/min (>60); GFR (African American) 75 ML/MIN (>60); Globulin 2.7 gm/dl (1.3-3.2); Glucose 108 mg/dL (74-106); HDL Cholesterol 37 mg/dL (27-67); LDL Cholesterol 81 mg/dL (0-130); Lipase 61 u/L (73-393); Potassium 3.7 mmoL/L (3.5-5.1); Sodium 143 mmol/L (136-145); T4 (Thyroxine) 7.8 ug/dl (4.7-13.3); Thyroid Stimulating Hormone 1.13 uIU/ml (0.358-3.740); Total Protein,Serum 6.5 gm/dL (6.4-8.2); Triglycerides 137 mg/dL (30-200); VLDL Cholesterol 27 mg/dL (0-40)
[2019-04-06 16:46] LABS: Hemoglobin A1C 5.5 % (0.0-7.0)
[2019-04-06 17:20] LABS: Basophils # 0.1 K/mm3 (0-0.2); Basophils % 0.9 % (0.1-2.0); Eosinophils % 0.7 % (0.1-12.0); Hematocrit 41.6 % (42.0-52.0); Hemoglobin 12.2 g/dL (14.1-18.0); Lymphocytes # 1.4 K/mm3 (0.7-4.5); Lymphocytes % 28.3 % (10-50); Mean Corpuscular HGB Conc 29.2 g/dL (31.8-35.4); Mean Corpuscular Hemoglobin 27.3 pg (27.0-31.2); Mean Corpuscular Volume 93.3 fl (80-94); Mean Platelet Volume 8.5 fl (7.4-10.4); Monocytes # 0.3 K/mm3 (0.1-1.0); Monocytes % 5.1 % (1.7-9.3); Neutrophils # 3.2 K/mm3 (1.8-7.8); Platelet Count 217 K/mm3 (142-424); Red Blood Count 4.46 M/mm3 (4.60-6.20); Red Cell Distribution Width 14.2 % (11.5-17.5); White Blood Count 4.9 K/mm3 (4.8-10.8)
[2019-04-08 18:56] LABS: Vitamin D 25 Hydroxy 34.1 ng/mL (30.0-100.0)
== END ==
PROVIDERS: Visit Provider Emergency Medicine
DX: E11.9 Type 2 diabetes mellitus without complications (principal); R07.9 Chest pain, unspecified; R10.9 Unspecified abdominal pain; R11.2 Nausea with vomiting, unspecified; R20.0 Anesthesia of skin; E66.9 Obesity, unspecified; Z79.84 Long term (current) use of oral hypoglycemic drugs
CPT/HCPCS: 36415; 80053; 80061; 82652; 83036; 83690; 84436; 84443; 85025

== ENCOUNTER 2019-07-01 18:10 | Observation (INO) ==
--- NOTE | 2019-07-01 18:16 | Emergency Department Note ---
ED Disposition Clinical Impression: Chest pain Qualifiers: Chest pain type: precordial pain Qualified Code(s): R07.2 - Precordial pain Disposition: Admitted as Observation Condition on Discharge: Good Referrals: Teo Dominguez MD [Staff Physician] - Dominguez Cantu MD [Staff Physician] - Time of Disposition: 19:40 - Critical Care Critical Care Time: No Attestation: On , the high probability of a clinically significant, sudden or life threatening deterioration of the following system(s) required my full and direct attention, intervention and personal management. The time I documented below is in addition to time spent performing reported procedures but includes the following listed in this critical care notation. Medical Decision Making - Medical Records Medical records reviewed: Yes: I reviewed the patient's medical records. - Luis Felipe Inquiry Pt receiving controlled substance: No Luis Felipe was queried for this patient: No Vital Signs: 07/01/19 18:10 07/01/19 19:23 07/01/19 19:30 Temperature 98.4 F 98 F Temperature Source Oral Oral Pulse Rate [Right Radial] 93 H 79 76 Respiratory Rate 20 16 Blood Pressure [Right Arm] 160/96 H 162/68 H 162/88 H Blood Pressure Mean [Right Arm] 117 99 112 Blood Pressure Source [Right Arm] Automatic Cuff Blood Pressure Position [Right Arm] Supine 02 Sat by Pulse Oximetry 97 97 94 L Oxygen Delivery Method Room Air Room Air - Lab Data Lab results reviewed: Yes: I reviewed the patient's lab results. Lab Results 07/01/19 18:20: WBC 7.5, RBC 4.93, Hgb 14.6, Hct 42.6, MCV 86.4, MCH 29.6, MCHC 34.2, RDW 13.4, Plt Count 249, MPV 7.3 L, Neut % (Auto) 61.5, Lymph % (Auto) 30.5, [place] % (Auto) 5.6, Eos % (Auto) 1.8, Baso % (Auto) 0.7, Neut # (Auto) 4.6, Lymph # (Auto) 2.3, [place] # (Auto) 0.4, Eos # (Auto) 0.1, Baso # (Auto) 0.1 07/01/19 18:20: Sodium 141, Potassium 3.3 L, Chloride 103, Carbon Dioxide 27, Anion Gap 14.3, BUN 12, Creatinine 1.04, Estimated Creat Clear 100, Estimated GFR 72, Est GFR ( Amer) 87, Glucose 137 H, Calcium 9.2, Total Bilirubin 0.7, Direct Bilirubin 0.2, Indirect Bilirubin 0.5, AST 16, ALT 25, Alkaline Phosphatase 95, Troponin I < 0.02, Total Protein 7.3, Albumin 4.1 07/01/19 18:20: Magnesium 1.7 07/01/19 18:20: B-Natriuretic Peptide 18 07/01/19 18:20: PT 10.5, INR 1.01, APTT 27.1 Result diagrams: 07/01/19 18:20 07/01/19 18:20 Orders (Tests/Meds): ED MEDICATIONS Discontinued Medications Generic Name Dose Route Start Last Admin Trade Name Freq PRN Reason Stop Dose Admin Aspirin 162 mg 07/01/19 18:18 07/01/19 18:22 Aspirin 81mg Chewable Tablet PO 07/01/19 18:19 162 mg ONCE ONE Administration Ioversol 100 ml 07/01/19 19:19 07/01/19 19:20 Rad-Optiray 350 100ml Vial IV 07/01/19 19:20 100 ml ONCE ONE Administration Protocol Morphine Sulfate 2 mg 07/01/19 18:32 07/01/19 18:39 Morphine 2mg/Ml Syringe IV 07/01/19 18:33 2 mg ONCE ONE Administration Nitroglycerin 0.4 mg 07/01/19 18:19 Nitrostat 0.4mg Sl Tablet SL 07/31/19 18:18 Q5MINP PRN Chest Pain Nitroglycerin 1 gm 07/01/19 18:32 07/01/19 18:39 Nitroglycerin 1 Inch Oint Udp TD 07/01/19 18:33 1 gm ONCE ONE Administration Ondansetron HCl 4 mg 07/01/19 18:24 07/01/19 18:30 Zofran 4mg/2ml Vial IV 07/01/19 18:25 4 mg ONCE ONE Administration Potassium Chloride 40 meq 07/01/19 18:58 07/01/19 19:22 Klor-Con 20meq Tablet PO 07/01/19 18:59 40 meq ONCE ONE Administration Sodium Chloride 10 ml 07/01/19 19:19 07/01/19 19:20 Rad-Saline Flush 10ml Syringe IV 07/01/19 19:20 10 ml ONCE ONE Administration Sodium Chloride 40 ml 07/01/19 19:19 07/01/19 19:20 Rad-Ns 50ml Vial IV 07/01/19 19:20 40 ml ONCE ONE Administration ORDERS Category Date Time Status CT Chest w/PE protocol [CT angio chest] Stat Cat Scan 07/01/19 18:[address] angio abdomen pelvis Stat Cat Scan 07/01/19 18:37 Taken Chest XR -- portable [XR chest portable] Stat Exams 07/01/19 18:17 Taken Troponin I Q3H Lab 07/01/19 21:30 Ordered Troponin I Q3H Lab 07/02/19 00:30 Ordered - Radiology Data #1 Image(s): Chest Image Reviewed: Yes I reviewed the patient's radiology image Preliminary reading by myself: no free air, effusion or infiltrates. Mediastinum not widened. - ECG Data Tracing #1 I reviewed this ECG and interpreted as documented below: (EKG at 18:09 shows a normal sinus rhythm, left axis deviation, minimal voltage criteria for LVH with a rate of [address]-T changes noted.) Medical Decision Narrative: 18:34 I have evaluated this patient. EKG shows no acute changes. Cardiac work- up was ordered. Portable chest x-ray ordered as well as a CTA of his chest and abdomen/pelvis in light of his history of aneurysm. ASA and NTG SL ordered, but pt refusing SL NTG as he takes sildenafil. Pt last dose of sildenafil was 06-29-19. Pt is outside 24 hours of the sildenafil. He is in agreement with NTG paste. Also ordered morphine 2 mg IV push and Zofran 4 mg IV push. 19:32 Patient has had a CTs performed. Chest x-ray shows no acute changes. His initial labs are unremarkable except that his potassium was 3.3. I did order 40 mEq of potassium chloride p.o. for this patient. Patient also had a normal troponin. I reassessed the patient and patient is feeling better at this time with the nitroglycerin paste and the morphine. CT a of the chest abdomen and pelvis are pending. I will discuss this patient's case with Dr. Cantu regarding admission of the patient so long as his CTAs are normal. 19:[address] Cantu at 1935 hrs. He is agreed to accept admission of the patient for rule out. I will write orders to admit this patient; however, I will asked Dr. Dominguez his PCP who is coming into the ER to relieve me at [address] to [address] scans and give the okay to admit the patient upstairs. Patient and family are aware of results of work-up, diagnosis and care plan at this time. They understand, agree and all questions answered. Chest Pain HPI - General Chief Complaint: Chest Pain Stated Complaint: chest pain Time Seen by Provider: 07/01/19 18:11 Mode of Arrival: Ambulatory Source of Information: Patient Limitations: No Limitations Description of Symptoms (Recalled from ER Triage Doc. by RN): pt to the ed with c/o generalized fatigue that began yesterday. pt states he moved into a new place recently and he has been spraying for bugs and thinks he could have inhaled some gas fumes while moving. pt states that he began having chest tightness today and his fatigue has worsened. - History of Present Illness HPI narrative: Patient is a 63-year-old male here in the ER via private vehicle from home complaining having chest pain. Patient states that he has not felt well since yesterday. He has felt nauseated and has had some generalized weakness. Patient has not been very active over the past day he states. He began having chest pain about 3 hours ago. Patient states his discomfort is in the mid chest precordial area and he does have some discomfort into his left shoulder and his left arm is aching. He also has some left-sided neck discomfort. No back pain. No diaphoresis. Patient denies having abdominal pain. She also has a history of a thoracic aortic aneurysm and abdominal aortic aneurysm that measured 4 cm and 3.5 cm in the middle of 2019. There is no history of prior heart attack. He states that he has had mini strokes in the past. He also has remote history of craniotomy for benign tumor. Pt is taking sildenafil. Last stress test was about 8 months ago. Stress test apparently was unremarkable. Patient did have 1 stent placed 2 years prior to that stress test. - Related Data Home Medications Medication Instructions Recorded Confirmed polyethylene glycol 3350 17 17 g PO DAILY 06/25/17 07/01/19 gram/dose oral powder Aspirin [Aspirin 81mg EC Tab] 81 mg PO DAILY 01/07/18 07/01/19 sildenafil (pulm.hypertension) 20 20 mg PO TID PRN 01/11/19 07/01/19 mg tablet Alfuzosin HCl [Uroxatral] 10 mg PO DAILY 07/01/19 07/01/19 Aspirin [Aspir 81] 81 mg PO DAILY 07/01/19 07/01/19 Cetirizine HCl 10 mg PO DAILY 07/01/19 07/01/19 Furosemide [Furosemide 40MG tAB] 40 mg PO DAILY 07/01/19 07/01/19 Levothyroxine Sodium 75 mcg PO DAILY 07/01/19 07/01/19 [Levothyroxine 75mcg (0.075mg) Tab] Levothyroxine Sodium [Synthroid 75 mcg PO DAILY 07/01/19 07/01/19 75mcg (0.075mg) tablet] Losartan/Hydrochlorothiazide See Rx Instructions .ROUTE .COMPLEX 07/01/19 07/01/19 [Hyzaar 100-12.5 Tablet] Pantoprazole Sodium [Protonix 40mg 40 mg PO DAILY 07/01/19 07/01/19 tablet] Prasugrel HCl [Effient 10mg tablet] 10 mg PO DAILY 07/01/19 07/01/19 Previous Rx's Medication Instructions Recorded methocarbamol 500 mg tablet 500 mg PO TID PRN #30 tab 10/27/18 atorvastatin 40 mg tablet 40 mg PO HS #30 tab 03/20/19 metformin 500 mg tablet 500 mg PO DAILY #90 tab 04/06/19 Allergies Allergy/AdvReac Type Severity Reaction Status Date / Time latex [LATEX] Allergy Unknown Verified 07/01/19 18:15 Penicillins [PENICILLINS] Allergy Unknown Verified 07/01/19 18:15 Sulfa (Sulfonamide Allergy Unknown Verified 07/01/19 18:15 Antibiotics) [SULFA (SULFONAMIDE ANTIBIOTICS)] [facility] History - Hepatitis A Screen Drug use history?: Yes High risk sexual behaviors?: No History of sexually transmitted infection?: No Currently employed?: No Childcare worker?: No Do you have indoor plumbing?: Yes Do you have electricity?: Yes Attestation statement:: This patient has been screened for Hepatitis A risk factors. Medical History: Reports:: Anxiety, Cancer, Chronic Obstructive Pulmonary Disease (COPD), Coronary Artery Disease, Diabetes Mellitus Type 2, Hyperlipidemia, Hypertension, Lung Disease, Transient Ischemic Attacks (TIA), Ulcer Denies:: Diabetes Mellitus Type 1, Internal Pacemaker, MRSA, Seizures Other Medical History: Reports: Anemia, Arthritis, Hypothyroidism, Thyroid Disease Other Surgeries: Yes: Angiogram, Appendectomy, Cancer Surgery, Cardiac Catheterization, Colonoscopy, Coronary Stent, Plastic Surgery, Other. No: Pacemaker Amputation: No Fractures: Yes (left wrist and arm) Comment: brain, reconstructive face surgery, right arm, left eye - Social History Smoking Status: Former smoker Tobacco Type: cigarettes # Packs/Day (cigarettes): 4 Alcohol Intake: never Alcohol Intake Frequency:: other Substance Use Type: marijuana Occupational Status: retired, disabled Housing: house Household Members: spouse, adopted family - Psychiatric History Pschychiatric History:: Reports:: Anxiety Family Hx:: Cancer, Diabetes, Heart Attack, Hyperlipidemia, Stroke ROS Obtained: Yes All systems reviewed & no additional complaints - Constitutional Constitutional: Reports system reviewed and no additional complaints, except as docu - Eyes Eyes: Reports system reviewed and no additional complaints, except as docu - ENT Ears, Nose, Mouth, and Throat: Reports system reviewed and no additional complaints, except as docu - Cardiovascular Cardiovascular: Reports system reviewed and no additional complaints, except as docu, Reports as per HPI, Reports chest pain, Denies diaphoresis, Denies dyspnea, Denies edema, Denies leg edema, Reports radiating jaw, neck or arm pain, Reports other (TAA history) - Respiratory Respiratory: Yes system reviewed and no additional complaints, except as docu, Yes as per HPI, No cough, No dyspnea, No dyspnea on exertion - Gastrointestinal Gastrointestingal: Reports: system reviewed and no additional complaints, except as docu, other (AAA history). Denies: abdominal pain - Genitourinary Male Genitourinary: Reports system reviewed and no additional complaints, except as docu, Reports as per HPI, Reports other (Pt takes sildenafil) - Musculoskeletal Musculoskeletal: Reports system reviewed and no additional complaints, except as docu - Integumentary/Breasts Skin/Breast: Reports system reviewed and no additional complaints, except as docu - Neurologic Neurologic: Reports system reviewed and no additional complaints, except as docu - Endocrine Endocrine: Reports system reviewed and no additional complaints, except as docu - Hematologic/Lymphatic Henatologic/Lymphatic: Reports system reviewed and no additional complaints, except as docu - Allergic/Immunologic Allergic/Immunologic: Reports system reviewed and no additional complaints, except as docu Physical Exam - General General appearance: alert, anxious (mildly) - Head Head exam: atraumatic, normocephalic, normal inspection - Eye Eye exam: Present: normal appearance, PERRL, EOMI - ENT ENT exam: Present: normal exam, normal oropharynx, mucous membranes moist - Neck Neck exam: Present: normal inspection, trachea midline - Chest Chest inspection: Present: normal inspection, symmetric chest wall rise - Respiratory Respiratory exam: Present: normal lung sounds bilaterally. Absent: respiratory distress, wheezes, stridor - Cardiovascular Cardiovascular exam: Present: regular rate, normal heart sounds. Absent: rubs, gallop, clicks - Abdominal Exam Abdominal exam: Present: soft, normal bowel sounds. Absent: distention, tenderness, guarding, rebound, rigidity, pulsatile mass - Extremities Exam Extremities exam: Present: normal inspection, full ROM, other (mild pretibial ed dominick). Absent: tenderness - Back Exam Back exam: Present: normal inspection. Absent: CVA tenderness (R), CVA tenderness (L) - Neurological Exam Neurological exam: Present: alert, oriented X3, CN II-XII intact, other (Slight right sided facial droop) - Psychiatric Psychiatric exam: Present: normal mood, anxious (mildly) - Skin Skin exam: Present: warm, dry, intact. Absent: rash, diaphoresis
[2019-07-01 18:30] LABS: Basophils # 0.1 K/mm3 (0-0.2); Basophils % 0.7 % (0.1-2.0); Eosinophils # 0.1 K/mm3 (0.0-0.4); Eosinophils % 1.8 % (0.1-12.0); Hematocrit 42.6 % (42.0-52.0); Hemoglobin 14.6 g/dL (14.1-18.0); Lymphocytes # 2.3 K/mm3 (0.7-4.5); Lymphocytes % 30.5 % (10-50); Mean Corpuscular HGB Conc 34.2 g/dL (31.8-35.4); Mean Corpuscular Volume 86.4 fl (80-94); Mean Platelet Volume 7.3 fl (7.4-10.4); Monocytes # 0.4 K/mm3 (0.1-1.0); Monocytes % 5.6 % (1.7-9.3); Neutrophils # 4.6 K/mm3 (1.8-7.8); Neutrophils % 61.5 % (37.0-80.0); Platelet Count 249 K/mm3 (142-424); Red Blood Count 4.93 M/mm3 (4.60-6.20); Red Cell Distribution Width 13.4 % (11.5-17.5); White Blood Count 7.5 K/mm3 (4.8-10.8)
[2019-07-01 18:49] LABS: Activated Partial Thrombo Time 27.1 seconds (23.6-34.0); INR 1.01 (0.9-1.1); Prothrombin Time 10.5 seconds (9.4-11.8)
[2019-07-01 18:51] LABS: Alanine Aminotransferase 25 U/L (12-78); Albumin Level 4.1 gm/dL (3.4-5.0); Alkaline Phosphatase 95 U/L (46-116); Anion Gap 14.3 mEq/L (5-15); Aspartate Amino Transferase 16 U/L (15-37); Bilirubin,Direct 0.2 mg/dL (0.0-0.2); Bilirubin,Indirect 0.5 mg/dL (0.0-0.9); Bilirubin,Total 0.7 mg/dL (0.2-1.0); Blood Urea Nitrogen 12 mg/dL (7-18); Calcium 9.2 mg/dL (8.5-10.1); Carbon Dioxide 27 mmol/L (21.0-32.0); Chloride 103 mmol/L (98-107); Glucose 137 mg/dL (74-106); Sodium 141 mmol/L (136-145); Total Protein,Serum 7.3 gm/dL (6.4-8.2)
[2019-07-01 20:23] LABS: Microscopic, Urine URINE MICROSCOPIC (MICROSCOPIC)
[2019-07-01 20:24] LABS: Appearance,Urine CLEAR (Clear); Bilirubin,Urine Negative (Negative); Blood, Urine Negative (Negative); Color,Urine YELLOW (Yellow); Glucose,Urine (UA) Negative (Negative); Ketones,Urine Negative (Negative); Leukocyte Esterase,Urine Negative (Negative); Protein,Urine Negative (Negative); Urobilinogen,Urine 0.2 EU/dl (0.2)
[2019-07-01 20:55] LABS: Bacteria,Urine Trace /lpf; Mucus,Urine Trace /lpf; WBC,Urine Occasional #/hpf (0-3)
[2019-07-02 06:23] LABS: Basophils # 0.1 K/mm3 (0-0.2); Basophils % 0.6 % (0.1-2.0); Eosinophils # 0.1 K/mm3 (0.0-0.4); Hematocrit 41.5 % (42.0-52.0); Hemoglobin 13.6 g/dL (14.1-18.0); Lymphocytes # 1.6 K/mm3 (0.7-4.5); Lymphocytes % 18.5 % (10-50); Mean Corpuscular HGB Conc 32.7 g/dL (31.8-35.4); Mean Corpuscular Volume 90.1 fl (80-94); Mean Platelet Volume 7.6 fl (7.4-10.4); Monocytes # 0.5 K/mm3 (0.1-1.0); Monocytes % 5.7 % (1.7-9.3); Neutrophils # 6.6 K/mm3 (1.8-7.8); Neutrophils % 74.2 % (37.0-80.0); Platelet Count 231 K/mm3 (142-424); Red Blood Count 4.61 M/mm3 (4.60-6.20); Red Cell Distribution Width 13.6 % (11.5-17.5); White Blood Count 8.9 K/mm3 (4.8-10.8)
[2019-07-02 06:27] LABS: Calcium 8.8 mg/dL (8.5-10.1)
--- NOTE | 2019-07-02 08:36 | Pharmacy Consult Notes ---
[facility] [place] Pharmacy VTE Monitoring - Patient Demographics Admission date: 07/01/19 Report Date: 07/02/19 Time: 08:36 Allergies/Adverse Reactions: Patient Allergies latex [LATEX] Allergy (Unknown, Verified 07/01/19 18:15) Penicillins [PENICILLINS] Allergy (Unknown, Verified 07/01/19 18:15) Sulfa (Sulfonamide Antibiotics) [SULFA (SULFONAMIDE ANTIBIOTICS)] Allergy (Unknown, Verified 07/01/19 18:15) Height: 1.73 m Weight: 90.293 kg Patient Problems: Current Active Problems (Last Updated 12/11/17 @ 18:41 by LOUIE Landin) Chest pain (Chronic) - VTE Risk Labs: VTE Related Lab Results Hgb 13.6 g/dL (14.1-18.0) L 07/02/19 05:40 Hct 41.5 % (42.0-52.0) L 07/02/19 05:40 Plt Count 231 K/mm3 (142-424) 07/02/19 05:40 PT 10.5 seconds (9.4-11.8) 07/01/19 18:20 INR 1.01 (0.9-1.1) 07/01/19 18:20 APTT 27.1 seconds (23.6-34.0) 07/01/19 18:20 BUN 12 mg/dL (7-18) 07/02/19 05:48 Creatinine 1.03 mg/dL (0.70-1.30) 07/02/19 05:48 Estimated Creat Clear 91 mL/min (50-200) 07/02/19 05:48 VTE Score: 6 VTE Risk Level: Moderate Risk - Prophylaxis VTE Prophylaxis Ordered?: Yes Types of VTE Prophylaxis: TEDS Knee High Location of Applied Device: Bilateral Lower Extremeties - VTE Diagnosis Confirmed Treatment or plan recommended: Continue Current Treatment
--- NOTE | 2019-07-02 09:29 | History & Physical Report ---
*Admission Date: 07/01/19 *Chief complaint: chest pain *History of present illness: this pt has known cad and had chest pain and was seen in the ed - to the ed with c/o generalized fatigue that began yesterday. pt states he moved into a new place recently and he has been spraying for bugs and thinks he could have inhaled some gas fumes while moving. pt states that he began having chest tightness today and his fatigue has worsened. HPI narrative: Patient is a 63-year-old male here in the ER via private vehicle from home complaining having chest pain. Patient states that he has not felt well since yesterday. He has felt nauseated and has had some generalized weakness. Wander hennessy has not been very active over the past day he states. He began having chest pain about 3 hours ago. Patient states his discomfort is in the mid chest precordial area and he does have some discomfort into his left shoulder and his left arm is aching. He also has some left-sided neck discomfort. No back pain. No diaphoresis. Patient denies having abdominal pain. She also has a history of a thoracic aortic aneurysm and abdominal aortic aneurysm that measured 4 cm and 3.5 cm in the middle of 2019. There is no history of prior heart attack. He states that he has had mini strokes in the past. He also has remote history of craniotomy for benign tumor. Pt is taking sildenafil. Last stress test was about 8 months ago. Stress test apparently was unremarkable. Patient did have 1 stent placed 2 years prior to that stress test. pt admitted for [facility] History I have reviewed the patient's past medical history: Yes Medical History: Reports:: Anxiety, Cancer, Chronic Obstructive Pulmonary Disease (COPD), Coronary Artery Disease, Diabetes Mellitus Type 2, Hyperlipidemia, Hypertension, Lung Disease, Transient Ischemic Attacks (TIA), Ulcer Denies:: Diabetes Mellitus Type 1, Internal Pacemaker, MRSA, Seizures *Have you ever received a pneumonia vaccine?: No *Have you received a flu vaccine this season?: No Other Medical History: Reports: Anemia, Arthritis, Hypothyroidism, Thyroid Disease Other Surgeries: Yes: Angiogram, Appendectomy, Cancer Surgery, Cardiac Catheterization, Colonoscopy, Coronary Stent, Plastic Surgery, Other (removal of brain tumor and facial reconstruction). No: Pacemaker Amputation: No Fractures: Yes (left wrist and arm) - *Social History Educational Level: Completed GED/General Educational Development Smoking Status: Former smoker Tobacco Type: cigarettes # Packs/Day (cigarettes): 4 Alcohol Intake: never Alcohol Intake Frequency:: other Substance Use Type: marijuana Last Used Substance: unknown *Occupational Status:: disabled Housing: house Household Members: none *Travel in the last 8 weeks: None - Psychiatric History Pschychiatric History:: Reports:: Anxiety Family Hx:: Cancer, Heart Attack, Mental illness Review of Systems - Review of Systems Review of systems:: pertinent systems reviewed and negative unless documented below - Constitutional Reports malaise, Denies fever(s) - Eyes Denies change in vision - ENT Denies dizziness, Denies sore throat - *Cardiovascular Reports chest pain at rest, Reports shortness of breath - *Respiratory Denies cough - *Gastrointestinal Denies abdominal pain - *Genitourinary Denies blood in urine - *Musculoskeletal Denies joint pain - Integumentary/Breasts Denies rash - *Neurologic Denies headache(s), Denies seizure-like activity - Psychiatric Denies anxiety Meds Home Medications Medication Instructions Recorded Confirmed Type polyethylene glycol 3350 17 17 g PO DAILY PRN 06/25/17 07/01/19 History gram/dose oral powder Aspirin [Aspirin 81mg EC Tab] 81 mg PO DAILY 01/07/18 07/01/19 History methocarbamol 500 mg tablet 500 mg PO TID PRN #30 tab 10/27/18 07/01/19 Rx atorvastatin 40 mg tablet 40 mg PO HS #30 tab 03/20/19 07/01/19 Rx Alfuzosin HCl [Uroxatral] 10 mg PO DAILY 07/01/19 07/01/19 History Furosemide [Furosemide 40MG tAB] 40 mg PO DAILY PRN 07/01/19 07/01/19 History Levothyroxine Sodium [Synthroid 75 mcg PO DAILY 07/01/19 07/01/19 History 75mcg (0.075mg) tablet] Losartan/Hydrochlorothiazide 1 tab PO HS 07/01/19 07/01/19 History [Hyzaar 100-12.5 Tablet] Metformin HCl 500 mg PO HS 07/01/19 07/01/19 History Sildenafil Citrate [Sildenafil] 20 mg PO DAILY 07/01/19 07/01/19 History Allergies Allergy/AdvReac Type Severity Reaction Status Date / Time latex [LATEX] Allergy Unknown Verified 07/01/19 18:15 Penicillins [PENICILLINS] Allergy Unknown Verified 07/01/19 18:15 Sulfa (Sulfonamide Allergy Unknown Verified 07/01/19 18:15 Antibiotics) [SULFA (SULFONAMIDE ANTIBIOTICS)] Exam Vital signs and Labs for Last 24 Hours: Temp Pulse Resp BP Pulse Ox 98.2 F 75 18 94/54 L 93 L 07/02/19 07:47 07/02/19 07:47 07/02/19 07:47 07/02/19 07:47 07/02/19 07:47 Laboratory Results - last 24 hr 07/01/19 18:20: WBC 7.5, RBC 4.93, Hgb 14.6, Hct 42.6, MCV 86.4, MCH 29.6, MCHC 34.2, RDW 13.4, Plt Count 249, MPV 7.3 L, Neut % (Auto) 61.5, Lymph % (Auto) 30.5, [place] % (Auto) 5.6, Eos % (Auto) 1.8, Baso % (Auto) 0.7, Neut # (Auto) 4.6, Lymph # (Auto) 2.3, [place] # (Auto) 0.4, Eos # (Auto) 0.1, Baso # (Auto) 0.1 07/01/19 18:20: Sodium 141, Potassium 3.3 L, Chloride 103, Carbon Dioxide 27, Anion Gap 14.3, BUN 12, Creatinine 1.04, Estimated Creat Clear 100, Estimated GFR 72, Est GFR ( Amer) 87, Glucose 137 H, Calcium 9.2, Total Bilirubin 0.7, Direct Bilirubin 0.2, Indirect Bilirubin 0.5, AST 16, ALT 25, Alkaline Phosphatase 95, Troponin I < 0.02, Total Protein 7.3, Albumin 4.1 07/01/19 18:20: Magnesium 1.7 07/01/19 18:20: B-Natriuretic Peptide 18 07/01/19 18:20: PT 10.5, INR 1.01, APTT 27.1 07/01/19 19:18: Urine Color Yellow, Urine Appearance Clear, Urine pH 6.0, Ur Specific [place] 1.020, Urine Protein Negative, Urine Glucose (UA) Negative, Urine Ketones Negative, Urine Blood Negative, Urine Nitrate Negative, Urine Bilirubin Negative, Urine Urobilinogen 0.2, Ur Leukocyte Esterase Negative, Urine WBC Occasional, Urine Bacteria Trace, Urine Mucus Trace 07/01/19 21:37: Troponin I < 0.02 07/02/19 00:35: Troponin I < 0.02 07/02/19 05:40: WBC 8.9, RBC 4.61, Hgb 13.6 L, Hct 41.5 L, MCV 90.1, MCH 29.4, MCHC 32.7, RDW 13.6, Plt Count 231, MPV 7.6, Neut % (Auto) 74.2, Lymph % (Auto) 18.5, [place] % (Auto) 5.7, Eos % (Auto) 1.0, Baso % (Auto) 0.6, Neut # (Auto) 6.6, Lymph # (Auto) 1.6, [place] # (Auto) 0.5, Eos # (Auto) 0.1, Baso # (Auto) 0.1 07/02/19 05:48: Sodium 143, Potassium 4.0 D, Chloride 107, Carbon Dioxide 27, Anion Gap 13.0, BUN 12, Creatinine 1.03, Estimated Creat Clear 91, Estimated GFR 72, Est GFR ( Amer) 88, Glucose 113 H, Calcium 8.8 I & O for Last 24 hours: Intake & Output 06/29/19 06/30/19 07/01/19 07/02/19 11:59 11:59 11:59 11:59 Intake Total 370 / 370 Output Total 200 / 200 Balance 170 / 170 Weight 199 lb 1 oz - Constitutional no acute distress, obese - *Routine HEENT Exam Head: Present: normocephalic Eye: Present: EOMI, PERRL ENT: Present: mucous membranes dry - *Routine Neck Exam Present: supple. Absent: JVD - *Routine Respiratory Exam Present: CTA bilaterally - *Routine Cardiovascular Exam Present: RRR, murmur, S4 - *Routine Abdominal Exam Present: soft. Absent: tenderness - *Routine Extremities Exam Present: full ROM - *Routine Skin Exam Present: intact - *Routine Neurological Exam Present: alert, oriented X3, CN II-XII intact - Routine Psychiatric Exam Present: normal affect Assessment and Plan (1) CAD (coronary artery disease) Current visit: Yes Status: Acute Qualifiers: Coronary Disease-Associated Artery/Lesion type: unspecified vessel or lesion type [place] vs. transplanted heart: [place] heart Associated angina: with unspecified angina Qualified Code(s): I25.119 - Atherosclerotic heart disease of [place] coronary artery with unspecified angina pectoris Category: Medical Code(s): I25.10 - Atherosclerotic heart disease of [place] coronary artery without angina pectoris (2) Chest pain Current visit: Yes Status: Chronic Qualifiers: Chest pain type: precordial pain Qualified Code(s): R07.2 - Precordial pain Category: Medical Code(s): R07.9 - Chest pain, unspecified (3) Obesity (BMI 30-39.9) Current visit: No Status: Acute Category: Medical Code(s): E66.9 - Obesity, unspecified (4) Abdominal aortic aneurysm Current visit: No Status: Chronic Qualifiers: Presence of rupture: without rupture Qualified Code(s): I71.4 - Abdominal aortic aneurysm, without rupture Category: Medical Code(s): I71.4 - Abdominal aortic aneurysm, without rupture (5) Aneurysm of ascending aorta Current visit: No Status: Chronic Category: Medical Code(s): I71.2 - Thoracic aortic aneurysm, without rupture (6) Coronary arteriosclerosis Current visit: No Status: Chronic Category: Medical Code(s): I25.10 - Atherosclerotic heart disease of [place] coronary artery without angina pectoris (7) Diabetes mellitus Current visit: No Status: Chronic Qualifiers: Diabetes mellitus type: type 2 Diabetes mellitus chcf insulin use: without chcf use Diabetes mellitus complication status: with unspecified complications Category: Medical Code(s): E11.9 - Type 2 diabetes mellitus without complications (8) Hyperlipidemia Current visit: No Status: Chronic Qualifiers: Hyperlipidemia type: mixed hyperlipidemia Qualified Code(s): E78.2 - Mixed hyperlipidemia Category: Medical Code(s): E78.5 - Hyperlipidemia, unspecified
--- NOTE | 2019-07-03 07:00 | Consult Report ---
History of Present Illness Consult date: 07/03/19 Requesting physician: Teo Dominguez Consult reason: chest pain Chief complaint: chest pain Additional Medical History:: 1. Coronary disease A. History of abnormal stress test with inferior ischemia, 11/2016 B. Cardiac catheterization with subsequent drug-eluting stent placement to the RIGHT coronary artery, 11/2016. Aspirin and Effient therapy. C. [facility] Myoview, 02/2017, No ischemia with inferior scar. EF 55%. D. Hospital admission for chest pain with normal troponins, 05/2017, Cardiac cath revealing patent RCA stent with insignificant CAD of true circumflex. Normal LVEF. E. Federico myoview, 07/2018, mixed inferior ischemia and scar with wall motion abnormalities. LVEF 54% F. [facility], 07/2018, patents stent to RCA, endothelial dysfunction noted (slow flow down coronaries). Medical therapy. 2. Previous brain surgery for benign brain mass, 1995, with resultant RIGHT facial droop A. Follows with neurology at . Recent MRI of the brain 02/2017, results pending 3. History of both ascending aortic aneurysm (4 cm) and abdominal aortic aneurysm (3.9 X 3.4 cm), with CTA of the chest and abdomen, 07/2016. A. CTA of chest, 03/08/2017, AAA at 4 cm. B. CTA of chest, 02/2018, stable. C. CTA of chest and abdomen, 06/2019, AAA and Abdominal aortic aneurysm, stable. 4. Diabetes mellitus, Type II 5. Hyperlipidemia, on statin therapy 6. Remote tobacco use discontinued approximately 2002 A. centrilobular emphysema by CTA of chest, 02/2018 7. Erectile dysfunction with intermittent sildenafil use History of present illness: 63-year-old white male with known coronary artery disease presented to emergency department for episode of chest pain in the substernal/subxiphoid area that has woken him from sleep recently. Patient relates symptoms resolved with belching. He has recurrent episodes of this chest pain after eating. He states he has recently been under a lot of stress with his filing for divorce and putting grandkids up for adoption. Patient is recently moved from large 4 bedroom home to smaller place in town and has been moving without episodes of chest pain. Due to the depression he does admit to using some marijuana recently with subsequent drug screen for his pain management meds showing positive for marijuana and thereby losing his pain medication prescription. He does complain of neck and back pain which is chronic. Patient was admitted for serial troponins which have returned normal. He does not believe this is his heart but it is more related to his stomach and recent stressors. EKG is sinus rhythm with no acute ST segment changes. Preliminary echocardiogram shows preserved ejection fraction with no significant valvular heart disease. Patient's most recent cardiac cath in July of last year was performed due to an abnormal stress test. Coronary stent in the right coronary artery was widely patent. He was noted to have endothelial dysfunction down the LAD for which Ranexa was prescribed but never taken due to cost. [facility] History Medical History: Reports:: Anxiety, Cancer, Chronic Obstructive Pulmonary Disease (COPD), Coronary Artery Disease, Diabetes Mellitus Type 2, Hyperlipidemia, Hypertension, Lung Disease, Transient Ischemic Attacks (TIA), Ulcer Denies:: Diabetes Mellitus Type 1, Internal Pacemaker, MRSA, Seizures *Have you ever received a pneumonia vaccine?: No *Have you received a flu vaccine this season?: No Other Medical History: Reports: Anemia, Arthritis, Hypothyroidism, Thyroid Disease Other Surgeries: Yes: Angiogram, Appendectomy, Cancer Surgery, Cardiac Catheterization, Colonoscopy, Coronary Stent, Plastic Surgery, Other (removal of brain tumor and facial reconstruction). No: Pacemaker Amputation: No Fractures: Yes (left wrist and arm) - *Social History Educational Level: Completed GED/General Educational Development Smoking Status: Former smoker Tobacco Type: cigarettes # Packs/Day (cigarettes): 4 Alcohol Intake: never Alcohol Intake Frequency:: other Substance Use Type: marijuana Last Used Substance: unknown *Occupational Status:: disabled Housing: house Household Members: none *Travel in the last 8 weeks: None - Psychiatric History Pschychiatric History:: Reports:: Anxiety Family Hx:: Cancer, Heart Attack, Mental illness Meds Home Medications Medication Instructions Recorded Confirmed Type polyethylene glycol 3350 17 17 g PO DAILYP PRN 06/25/17 07/02/19 History gram/dose oral powder Aspirin [Aspirin 81mg EC Tab] 81 mg PO DAILY 01/07/18 07/01/19 History atorvastatin 40 mg tablet 40 mg PO HS #30 tab 03/20/19 07/01/19 Rx Alfuzosin HCl [Uroxatral] 10 mg PO DAILY 07/01/19 07/01/19 History Furosemide [Furosemide 40MG tAB] 40 mg PO DAILYP PRN 07/01/19 07/02/19 History Levothyroxine Sodium [Synthroid 75 mcg PO DAILY 07/01/19 07/01/19 History 75mcg (0.075mg) tablet] Metformin HCl 500 mg PO HS 07/01/19 07/01/19 History Sildenafil Citrate [Sildenafil] 20 mg PO TID 07/01/19 07/02/19 History Albuterol Sulfate [Albuterol HFA 2 puff IH Q4HP PRN 07/02/19 07/02/19 History Inhaler] Losartan Potassium 100 mg PO DAILY 07/02/19 07/02/19 History hydroCHLOROthiazide [HCTZ 12.5mg 12.5 mg PO DAILY 07/02/19 07/02/19 History capsule] Allergies Allergy/AdvReac Type Severity Reaction Status Date / Time latex [LATEX] Allergy Unknown Verified 07/01/19 18:15 Penicillins [PENICILLINS] Allergy Unknown Verified 07/01/19 18:15 Sulfa (Sulfonamide Allergy Unknown Verified 07/01/19 18:15 Antibiotics) [SULFA (SULFONAMIDE ANTIBIOTICS)] Review of Systems - Review of Systems Review of systems:: pertinent systems reviewed and negative unless documented below - *Cardiovascular Reports chest pain, Reports shortness of breath with activity - *Respiratory Reports shortness of breath with activity - *Gastrointestinal Reports abdominal pain, Reports nausea, Reports vomiting, Denies loose stools - *Genitourinary Denies blood in urine - *Musculoskeletal Reports joint pain, Reports back pain, Reports neck pain - *Neurologic Denies dizziness, Denies headache(s), Denies seizure-like activity Exam Vital signs and Labs for Last 24 Hours: Temp Pulse Resp BP Pulse Ox 97.7 F 64 18 127/65 98 07/03/19 04:00 07/03/19 04:00 07/03/19 04:00 07/03/19 04:00 07/03/19 04:00 Laboratory Results - last 24 hr 07/02/19 17:29: POC Glucose 120 H I & O for Last 24 hours: Intake & Output 06/30/19 07/01/19 07/02/19 07/03/19 11:59 11:59 11:59 11:59 Intake Total 370 / 370 3116 / 3116 Output Total 200 / 200 600 / 600 Balance 170 / 170 2516 / 2516 Weight 199 lb 1 oz 201 lb 1 oz - *Routine HEENT Exam Head: Present: normocephalic Eye: Present: EOMI, PERRL ENT: Present: mucous membranes moist - *Routine Neck Exam Present: supple. Absent: JVD, carotid bruit - *Routine Respiratory Exam Present: CTA bilaterally. Absent: accessory muscle use, rales, rhonchi, wheezes - *Routine Cardiovascular Exam Present: RRR. Absent: murmur, gallop, rubs - *Routine Abdominal Exam Present: soft. Absent: tenderness, distended, guarding - *Routine Extremities Exam Absent: edema, calf tenderness - *Routine Neurological Exam Present: alert, oriented X3, moving all extremities Assessment and Plan (1) CAD (coronary artery disease) Current visit: Yes Status: Acute Qualifiers: Coronary Disease-Associated Artery/Lesion type: unspecified vessel or lesion type [place] vs. transplanted heart: [place] heart Associated angina: with unspecified angina Qualified Code(s): I25.119 - Atherosclerotic heart disease of [place] coronary artery with unspecified angina pectoris Category: Medical Code(s): I25.10 - Atherosclerotic heart disease of [place] coronary artery without angina pectoris (2) Chest pain Current visit: Yes Status: Chronic Qualifiers: Chest pain type: precordial pain Qualified Code(s): R07.2 - Precordial pain Category: Medical Code(s): R07.9 - Chest pain, unspecified (3) Obesity (BMI 30-39.9) Current visit: No Status: Acute Category: Medical Code(s): E66.9 - Obesity, unspecified (4) Abdominal aortic aneurysm Current visit: No Status: Chronic Qualifiers: Presence of rupture: without rupture Qualified Code(s): I71.4 - Abdominal aortic aneurysm, without rupture Category: Medical Code(s): I71.4 - Abdominal aortic aneurysm, without rupture (5) Aneurysm of ascending aorta Current visit: No Status: Chronic Category: Medical Code(s): I71.2 - Thoracic aortic aneurysm, without rupture (6) Coronary arteriosclerosis Current visit: No Status: Chronic Category: Medical Code(s): I25.10 - Atherosclerotic heart disease of [place] coronary artery without angina pectoris (7) Diabetes mellitus Current visit: No Status: Chronic Qualifiers: Diabetes mellitus type: type 2 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 History of chest pain not associated with activity, normal troponins, normal left ventricular ejection fraction and no acute EKG changes. With recent cardiac cath less than 1 year ago showing patent coronary stenting, would recommend continuing medical therapy with no further evaluation at this time. 2. History of dysphasia, consider GI evaluation 3. History of colon polyps with most recent colonoscopy less than 1 year ago. 4. OK for discharge home from cardiology standpoint with outpatient follow up.
--- NOTE | 2019-07-03 09:28 | Discharge Summary ---
General - General Admission date:: 07/01/19 Discharge date: 07/03/19 HPI HPI: this pt has known cad and had chest pain and was seen in the ed - to the ed with c/o generalized fatigue that began yesterday. pt states he moved into a new place recently and he has been spraying for bugs and thinks he could have inhaled some gas fumes while moving. pt states that he began having chest tightness today and his fatigue has worsened. HPI narrative: Patient is a 63-year-old male here in the ER via private vehicle from home complaining having chest pain. Patient states that he has not felt well since yesterday. He has felt nauseated and has had some generalized weakness. Patient has not been very active over the past day he states. He began having chest pain about 3 hours ago. Patient states his discomfort is in the mid chest precordial area and he does have some discomfort into his left shoulder and his left arm is aching. He also has some left-sided neck discomfort. No back pain. No diaphoresis. Patient denies having abdominal pain. She also has a history of a thoracic aortic aneurysm and abdominal aortic aneurysm that measured 4 cm and 3.5 cm in the middle of 2018. There is no history of prior heart attack. He states that he has had mini strokes in the past. He also has remote history of craniotomy for benign tumor. Pt is taking sildenafil. Last stress test was about 8 months ago. Stress test apparently was unremarkable. Patient did have 1 stent placed 2 years prior to that stress test. pt admitted for eval Hospital Course Hospital Course: cta:IMPRESSION: Chest 1.. Stable thoracic aorta. WNL Minor ectasia of the ascending aortic arch up to 3.7 cm-no change since Sept CT chest 2.. No evidence of pulmonary embolism. No active disease in the chest Abdomen 3.Abdominal Aortic Aneurysm up to 4.2 cm AP maximum diameter X 4.1 cm transverse dimension period. (On prior to 2018 exam measures up to 4.1 cm-thus 1 mm or less interval change. Barely appreciable) No acute findings here-no leakage or other new findings. This AAA involving the distal most 8 cm of the aorta leading to the bifurcation. . 4. Mild dilatation of the common iliac arteries again noted with no significant change here since June 2017 5. Question an barely evident 8.5 mm developing splenic artery dilatation which may reflect early minor splenic artery aneurysm,. Equivocal featuring can be followed on subsequent studies but noted for completeness 6.No significant new or acute findings findings otherwise at the chest or abdomen ct abd pel;vis:IMPRESSION: Chest 1.. Stable thoracic aorta. WNL Minor ectasia of the ascending aortic arch up to 3.7 cm-no change since Sept CT chest 2.. No evidence of pulmonary embolism. No active disease in the chest Abdomen 3.Abdominal Aortic Aneurysm up to 4.2 cm AP maximum diameter X 4.1 cm transverse dimension period. (On prior to 2018 exam measures up to 4.1 cm-thus 1 mm or less interval change. Barely appreciable) No acute findings here-no leakage or other new findings. This AAA involving the distal most 8 cm of the aorta leading to the bifurcation. . 4. Mild dilatation of the common iliac arteries again noted with no significant change here since June 2017 5. Question an barely evident 8.5 mm developing splenic artery dilatation which may reflect early minor splenic artery aneurysm,. Equivocal featuring can be followed on subsequent studies but noted for completeness 6.No significant new or acute findings findings otherwise at the chest or abdomen Cardiology consult see note-cardiac work-up negative We will discharge home follow-up in the office Possibly order gallbladder ultrasound and EGD Patient denies any chest pain overnight Patient reports having acid reflux and gas. We will do further work-up as an outpatient. Objective Vital signs: Temp Pulse Resp BP Pulse Ox 98.3 F 65 20 138/85 92 L 07/03/19 08:00 07/03/19 08:00 07/03/19 08:00 07/03/19 08:00 07/03/19 08:00 no acute distress - *Routine HEENT Exam Head: Present: normocephalic Eye: Present: PERRL ENT: Present: mucous membranes moist - *Routine Neck Exam Present: full ROM - *Routine Respiratory Exam Present: CTA bilaterally - *Routine Cardiovascular Exam Present: RRR - *Routine Abdominal Exam Present: soft, normoactive bowel sounds, tenderness - *Routine Extremities Exam Present: cyanosis - *Routine Skin Exam Present: intact - *Routine Neurological Exam Present: alert, oriented X3 - Routine Psychiatric Exam Present: normal affect Results Labs on day of discharge: Labs from last 24 hours 07/02/19 17:29 POC Glucose 120 H - Additional Comments Rounded with Dr. Dominguez all orders per Alberto DS: Diagnosis - Discharge Diagnosis (1) CAD (coronary artery disease) Status: Acute (2) Chest pain Status: Chronic (3) Obesity (BMI 30-39.9) Status: Acute (4) Abdominal aortic aneurysm Status: Chronic (5) Aneurysm of ascending aorta Status: Chronic (6) Coronary arteriosclerosis Status: Chronic (7) Diabetes mellitus Status: Chronic (8) Hyperlipidemia Status: Chronic Discharge Plan - Patient Discharge Instructions ACTIVITY: Continue current activity DIET: continue same diet Patient Instructions: DI for Chest Pain - Follow up Plan Follow up with: Teo Dominguez MD [Staff Physician] - Mehul Winston APRN [Nurse Practitioner] - 07/11/19 10:30 am Disposition: Home, Self-Halfway Medications: Home Medications Medication Instructions Recorded Confirmed Type polyethylene glycol 3350 17 17 g PO DAILYP PRN 06/25/17 07/02/19 History gram/dose oral powder Aspirin [Aspirin 81mg EC Tab] 81 mg PO DAILY 01/07/18 07/01/19 History atorvastatin 40 mg tablet 40 mg PO HS #30 tab 03/20/19 07/01/19 Rx Alfuzosin HCl [Uroxatral] 10 mg PO DAILY 07/01/19 07/01/19 History Furosemide [Furosemide 40MG tAB] 40 mg PO DAILYP PRN 07/01/19 07/02/19 History Levothyroxine Sodium [Synthroid 75 mcg PO DAILY 07/01/19 07/01/19 History 75mcg (0.075mg) tablet] Metformin HCl 500 mg PO HS 07/01/19 07/01/19 History Sildenafil Citrate [Sildenafil] 20 mg PO TID 07/01/19 07/02/19 History Albuterol Sulfate [Albuterol HFA 2 puff IH Q4HP PRN 07/02/19 07/02/19 History Inhaler] Losartan Potassium 100 mg PO DAILY 07/02/19 07/02/19 History hydroCHLOROthiazide [HCTZ 12.5mg 12.5 mg PO DAILY 07/02/19 07/02/19 History capsule] Pantoprazole Sodium [Protonix 40mg 40 mg PO DAILY 14 Days #14 07/03/19 Rx tablet] tablet. Prescriptions/Medication Reconciliation: New Pantoprazole Sodium [Protonix 40mg tablet] 40 mg PO DAILY 14 Days #14 tablet.dr Continued atorvastatin 40 mg tablet 40 mg PO HS #30 tab polyethylene glycol 3350 17 gram/dose oral powder 17 g PO DAILYP PRN PRN Reason: Constipation Alfuzosin HCl [Uroxatral] 10 mg PO DAILY Metformin HCl 500 mg PO HS Albuterol Sulfate [Albuterol HFA Inhaler] 2 puff IH Q4HP PRN PRN Reason: Shortness Of Breath hydroCHLOROthiazide [HCTZ 12.5mg capsule] 12.5 mg PO DAILY Losartan Potassium 100 mg PO DAILY Aspirin [Aspirin 81mg EC Tab] 81 mg PO DAILY Levothyroxine Sodium [Synthroid 75mcg (0.075mg) tablet] 75 mcg PO DAILY Furosemide [Furosemide 40MG tAB] 40 mg PO DAILYP PRN PRN Reason: Edema Sildenafil Citrate [Sildenafil] 20 mg PO TID - Problem Reconciliation Problems Reviewed?: Yes
--- NOTE | 2019-07-03 13:09 | Electrocardiograph Report ---
APPROVED REPORT Exam: Resting ECG HR:90 bpm ECG Measurements Heart Rate 90 AXES AZ 166 P 44 QRSd 86 QRS -34 QT 362 T53 QTc 442 <Conclusion> Normal sinus rhythm Left axis deviation Minimal voltage criteria for LVH, may be normal variant Abnormal ECG Electronically signed by : Gaudencio Kaiser, 07/03/2019 13:09:20
--- NOTE | 2019-07-03 20:04 | Cardiology Report ---
APPROVED REPORT EXAM: Comprehensive 2D, Doppler, and color-flow Echocardiogram Hearing Stenographer: Carleen Baca, RT(R) Ht: 5 ft 9 in Wt: 201lbs BSA: 2.07 BP: 127/65 mmHg Indications: CP,DM,COPD,CAD,EX SMOKER,H/O STENTS, BEGIGN BRAIN MASS,TIA HISTORY 2D Dimensions LVOT 1.81 cm (M/F) 1.5-2.5 M-Mode Dimensions RVDd 2.85 cm (0.9-2.6)LVDd 5.99 cm (3.5-5.7) LVDs 4.25 cm (3.5-5.7)IVSd 1.02 cm (0.6-1.1) PWd 0.93 cm (0.6-1.1)EF (Teich) 54.90% FS 29.00% EDV (Teich) 179.30 mL ESV (Teich) 80.80 mL LV Diastology E/A Ratio 0.97 Mitral Valve MV A Velocity 79.00 (40-130 cm/s) Left Ventricle Left atrium is mildly enlarged, left ventricle is normal size, mild concentric left ventricular hypertrophy, visually estimated ejection fraction 50%, there is moderate hypokinesis involving the inferior basal wall, endocardial surfaces are poorly visualized, grade 1 diastolic dysfunction seen without tissue Doppler evidence of raise left atrial pressure. Right Ventricle Right atrium and right ventricular normal size and contractility. Aortic Valve Aortic valve is minimally thickened and calcified, there is no aortic stenosis, aortic root is mildly enlarged, there is no aortic insufficiency. Mitral Valve Mitral valve is grossly normal, there is mild mitral regurgitation. Tricuspid Valve Tricuspid valve is grossly normal, there is mild tricuspid regurgitation, tricuspid regurgitation jet velocity is inadequate for calculation of the right ventricular systolic pressure. Bio-prosthetic tricuspid valve is present. Pulmonic Valve Pulmonic valve is poorly visualized. Great Vessels Aortic root is normal size. Pericardium No significant pericardial effusion noted. Conclusion 1. Mildly enlarged left atrium, normal left ventricular size, mild concentric left ventricular hypertrophy, visually estimated ejection fraction 50% with segmental wall motion abnormality described above, endocardial sounds are poorly visualized. Grade 1 diastolic dysfunction seen without tissue Doppler evidence of raise left atrial pressure. 2. Mild mitral and tricuspid regurgitation. 3. No significant pericardial effusion noted. Electronically signed by : Star Waterman, 07/03/2019 20:03:35
== END 2019-07-03 12:45 | disposition home or self-care (01) ==
LOC: 2ND 18:10 → ER 18:10 → 2ND 20:29
PROVIDERS: ADMIT Family Medicine; ATTEND Emergency Medicine
CPT/HCPCS: 36415; 71010; 71045; 71275; 74174; 80048; 80076; 81001; 82962; 83735; 83880; 84484; 85025; 85610; 85730; 93005; 93306; 96374; 96375; 96376; 99284; G0378; J2405; Q9967

== ENCOUNTER → 2019-07-07 17:29 | Outpatient (CLI) | payer MEDICARE, OTHER, SELFPAY ==
[2019-07-07 19:46] LABS: Amphetamine/Metha Screen,Urine Negative ng/mL (<1000); Barbiturates Screen,Urine Negative ng/mL (<200); Benzodiazepines Screen,Urine Negative ng/mL (<200); Cannabinoid Screen,Urine Positive ng/mL (<50); Cocaine Screen,Urine Negative ng/mL (<300); Methadone Screen,Urine Negative ng/mL (<300); Opiate Screen,Urine Negative ng/mL (<300); Phencyclidine Screen,Urine Negative ng/mL (<25)
== END ==
PROVIDERS: Visit Provider Emergency Medicine
DX: Z79.899 Other long term (current) drug therapy (principal)
CPT/HCPCS: 80305

== ENCOUNTER → 2019-07-14 07:38 | Outpatient (CLI) | payer MEDICARE, OTHER, SELFPAY ==
--- NOTE | 2019-07-14 07:40 | US_ITS ---
PROCEDURE: US GALLBLADDER CLINICAL INDICATION: abdominal pain COMPARISON: No exams were available for comparison FINDINGS: Pancreas: Unremarkable/Not well seen Liver: Unremarkable. There is appropriate direction of blood flow within a non dilated portal vein. Right kidney: There is a 2 cm right renal cyst and a 1 cm right renal cyst. No hydronephrosis Gallbladder: No stones are evident. There is no gallbladder wall thickening. Common duct is normal in diameter. IMPRESSION: 1. Unremarkable gallbladder ultrasound. 2. Right renal cysts Dictated by: Phillip Mitchell MD 07/14/2019 10:13 Electronically signed by Phillip Mitchell MD in [place] 07/14/2019 10:13
== END ==
PROVIDERS: PCP Emergency Medicine; Visit Provider Emergency Medicine
DX: R10.9 Unspecified abdominal pain (principal)
CPT/HCPCS: 76705

== ENCOUNTER → 2019-08-08 13:54 | Outpatient (CLI) | payer MEDICARE, OTHER, SELFPAY ==
[2019-08-08 14:30] LABS: Amphetamine/Metha Screen,Urine Negative ng/mL (<1000); Barbiturates Screen,Urine Negative ng/mL (<200); Benzodiazepines Screen,Urine Negative ng/mL (<200); Cannabinoid Screen,Urine Negative ng/mL (<50); Cocaine Screen,Urine Negative ng/mL (<300); Methadone Screen,Urine Negative ng/mL (<300); Opiate Screen,Urine Positive ng/mL (<300); Phencyclidine Screen,Urine Negative ng/mL (<25)
== END ==
PROVIDERS: Visit Provider Emergency Medicine
DX: Z79.899 Other long term (current) drug therapy (principal)
CPT/HCPCS: 80305

== ENCOUNTER → 2019-11-08 15:21 | Outpatient (CLI) | payer MEDICARE, OTHER, SELFPAY ==
--- NOTE | 2019-11-08 15:21 | MR_ITS ---
PROCEDURE: MR LUMBAR SPINE WO CON CLINICAL INDICATION: back pain Low back pain with numbness and tingling in the legs COMPARISON: SPCERVWO MR cervical spine wo con from 09/20/2018 TECHNIQUE: Standard multiplanar multiecho sequences are performed without contrast. 3-D MIP and myelographic images are also rendered and reviewed FINDINGS: There is normal alignment. The spinal cord ends at the L1-L2 level. T12-L1: Unremarkable. L1-L2: Unremarkable. L2-L3: Minimal bulging disc L4-5: Minimal bulging disc. L5-S1: Mild facet and ligamentum hypertrophy with mild bilateral foraminal narrowing. There is slight increased T2 signal involving the spinal cord at the T12 level. This is best demonstrated on the 3D myelo images. This area is not examined in the axial plane. This measures approximately 14 mm in length and 3 mm AP suggesting an area of syringomyelia. Suggest MRI of the thoracic spine without and with contrast for further evaluation. Incidental note made of bilateral renal cysts IMPRESSION: 1. Mild lumbar spondylosis. Please see above for detailed description at each level 2. Small area of syringomyelia suspected at T12. The superior aspect is not completely imaged and this is not imaged in the axial plane. Suggest MRI of the thoracic spine without and with contrast for further evaluation. Dictated by: Phillip Mitchell MD 11/10/2019 11:28 Electronically signed by Phillip Mitchell MD in [place] 11/10/2019 11:28
== END ==
PROVIDERS: PCP Emergency Medicine; Visit Provider Emergency Medicine
DX: M54.9 Dorsalgia, unspecified (principal)
CPT/HCPCS: 72148; 76376

== ENCOUNTER → 2019-12-05 11:49 | Outpatient (CLI) | payer MEDICARE, OTHER, SELFPAY ==
[2019-12-05 13:25] LABS: Anion Gap 13.3 mEq/L (5-15); Blood Urea Nitrogen 20 mg/dl (9-20); Calcium 10.1 mg/dl (8.4-10.2); Carbon Dioxide 31 mmol/L (22.0-30.0); Chloride 101 mmol/L (98-107); Estimated Glomerular Filt Rate 84 ml/min (>60); GFR (African American) 102 ML/MIN (>60); Glucose 111 mg/dl (74-100); Potassium 4.3 mmoL/L (3.5-5.1); Sodium 141 mmol/L (136-145)
== END ==
PROVIDERS: Visit Provider Emergency Medicine
DX: Z01.818 Encounter for other preprocedural examination (principal)
CPT/HCPCS: 36415; 80048

== ENCOUNTER → 2019-12-12 09:15 | Outpatient (CLI) | payer MEDICARE, OTHER, SELFPAY ==
--- NOTE | 2019-12-12 09:15 | MR_ITS ---
PROCEDURE: MR THORACIC SPINE WO/W CON CLINICAL INDICATION: syringomyelia Bilateral mid back pain, follow-up abnormal MRI of the lumbar spine suggesting syringomyelia at T12 COMPARISON: MR LUMBAR SPINE WO CON from 11/08/2019 TECHNIQUE: Routine multiplanar multi echo sequences are performed without and with gadolinium enhancement. FINDINGS: There is normal alignment. No acute fracture or dislocation is evident. No lytic or blastic change. There is mild multilevel thoracic spondylosis from T1-T12 with some decrease in the disc spaces and mild disc desiccation. Small ventral osteophytes are also noted. There is degenerative disc disease from T1-T12. T2-T3: Minimal right paracentral disc protrusion without impingement. T4-T5: Minimal left paracentral disc protrusion/small disc osteophyte complex with flattening of the left aspect of the cord anteriorly. T10-T11: Minimal right paracentral disc protrusion. Schmorl's nodes are present at T10-T11 with increased T1 and T2 signal around the Schmorl's node. No abnormal enhancement. There is mild prominence of the central canal at the T12 level. This is of questionable clinical significance. No contrast enhancement. No spinal cord mass ready the at her in the the IMPRESSION: 1. Mild multilevel thoracic spondylosis. Please see above for detailed description at each level. 2. Minimal dilatation of the central canal at the T12 region consistent with minimal syringohydromyelia. This is of questionable clinical significance. Consider 3 to six-month follow-up to confirm short term stability. No enhancing lesions of the cord or other significant anomalies evident. 3. T2-T3: Minimal right paracentral disc protrusion without impingement. 4. T4-T5: Minimal left paracentral disc protrusion/small disc osteophyte complex with flattening of the left aspect of the cord anteriorly. 5. T10-T11: Minimal right paracentral disc protrusion. Schmorl's nodes are present at T10-T11 with increased T1 and T2 signal around the Schmorl's node Dictated by: Phillip Mitchell MD 12/14/2019 11:41 Electronically signed by Phillip Mitchell MD in [place] 12/14/2019 11:41
== END ==
PROVIDERS: PCP Emergency Medicine; Visit Provider Emergency Medicine
DX: G95.0 Syringomyelia and syringobulbia (principal)
CPT/HCPCS: 72157; A9576

== ENCOUNTER → 2019-12-28 10:29 | Outpatient (CLI) | payer MEDICARE, OTHER, SELFPAY ==
[2019-12-29 21:30] LABS: Covid-19 Nasal PCR Sendout Lex NOT DETECTED
== END ==
PROVIDERS: PCP Emergency Medicine; Visit Provider Emergency Medicine
DX: Z03.818 Encounter for observation for suspected exposure to other biological agents ruled out (principal)
CPT/HCPCS: U0004

== ENCOUNTER 2020-01-19 11:07 | Emergency (ER) | payer MEDICARE, OTHER, SELFPAY ==
[2020-01-19] VITALS (8 sets, daily range): BP systolic 110–166; BP diastolic 74–89; PULSE 48–78; RESP 16; TEMP 36.6; O2SAT 94–98; BMI 31.0
--- NOTE | 2020-01-19 11:01 | ECG_ITS ---
APPROVED REPORT Exam: Resting ECG HR:73 bpm ECG Measurements Heart Rate 73 AXES AR 172 P 51 QRSd 96 QRS -16 QT 386 T 36 QTc 425 <Conclusion> Normal sinus rhythm Normal ECG Electronically signed by : Gaudencio Kaiser, 01/19/2020 19:56:43
--- NOTE | 2020-01-19 11:16 | XR_ITS ---
PROCEDURE: XR CHEST PORTABLE CLINICAL HISTORY: pain Chest pain COMPARISON: CXR2V XR chest 2V from 01/06/2018 CXR2V XR chest 2V from 08/11/2018 CT ANGIO CHEST from 07/01/2019 XR CHEST PORTABLE from 07/01/2019 FINDINGS: The cardiomediastinal silhouette and pulmonary vascularity are within normal limits. The lungs are clear without infiltrates, suspicious nodules, or pleural effusions. No acute bony abnormalities. IMPRESSION: No acute findings. Dictated by: Phillip Mitchell MD 01/19/2020 11:41 Electronically signed by Phillip Mitchell MD in [place] 01/19/2020 11:41
--- NOTE | 2020-01-19 11:16 | CT_ITS ---
PROCEDURE: CT HEAD/BRAIN WO CON CLINICAL INDICATION: pain Dizziness COMPARISON: HDWO CT HEAD W/O CONTRAST from 03/10/2016 [facility] MRI-BRAIN W/WO from 02/23/[address] head/brain wo con from 03/09/2018 TECHNIQUE: Axial images obtained. All CT scans at the facility use one or more dose reduction, viz: automated exposure control, ma/kV adjustment per patient size (including targeted exams where dose is matched to indication, i.e. head), or iterative reconstruction technique. FINDINGS: No midline shift, mass effect, intracranial hemorrhage, hydrocephalus, or extra-axial fluid collection is evident. There is significant artifact on the right from an orbital prostatic device. There is a right occipital craniectomy site. There remains some extra-axial calcification along the anterior medial aspect the lower midbrain in the prepontine cistern area. This does not appear significantly changed. No mastoid effusion or sinus air-fluid level. 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 No change with no acute finding. Dictated by: Phillip Mitchell MD 01/19/2020 12:02 Electronically signed by Phillip Mitchell MD in [place] 01/19/2020 12:02
[2020-01-19 11:26] LABS: Basophils % 0.7 % (0.1-2.0); Eosinophils # 0.1 K/mm3 (0.0-0.4); Hematocrit 40.8 % (42.0-52.0); Hemoglobin 14.2 g/dL (14.1-18.0); Lymphocytes # 2.1 K/mm3 (0.7-4.5); Lymphocytes % 33.3 % (10-50); Mean Corpuscular HGB Conc 34.9 g/dL (31.8-35.4); Mean Corpuscular Hemoglobin 30.6 pg (27.0-31.2); Mean Corpuscular Volume 87.7 fl (80-94); Mean Platelet Volume 7.3 fl (7.4-10.4); Monocytes # 0.3 K/mm3 (0.1-1.0); Monocytes % 5.4 % (1.7-9.3); Neutrophils # 3.8 K/mm3 (1.8-7.8); Neutrophils % 59.6 % (37.0-80.0); Platelet Count 223 K/mm3 (142-424); Red Blood Count 4.65 M/mm3 (4.60-6.20); Red Cell Distribution Width 13.4 % (11.5-17.5); White Blood Count 6.3 K/mm3 (4.8-10.8)
[2020-01-19 11:30] LABS: Anion Gap 14.9 mEq/L (5-15); Blood Urea Nitrogen 15 mg/dl (9-20); Calcium 9.9 mg/dl (8.4-10.2); Carbon Dioxide 26 mmol/L (22.0-30.0); Chloride 104 mmol/L (98-107); Creatinine Clearance Estimated 95 mL/min (50-200); Estimated Glomerular Filt Rate 84 ml/min (>60); GFR (African American) 102 ML/MIN (>60); Glucose 117 mg/dl (74-100); Potassium 3.9 mmoL/L (3.5-5.1); Sodium 141 mmol/L (136-145)
--- NOTE | 2020-01-19 11:30 | PC.NURSE ---
rad at bedside
--- NOTE | 2020-01-19 11:36 | PC.NURSE ---
Pt to rad.
[2020-01-19 11:43] LABS: Troponin I < 0.01 ng/ml (0.00-0.034)
--- NOTE | 2020-01-19 11:48 | PC.NURSE ---
Pt returned from rad.
--- NOTE | 2020-01-19 13:10 | PC.NURSE ---
Lab at bedside
--- NOTE | 2020-01-19 13:37 | [facility].EDGENADL ---
ED Disposition Clinical Impression: Chest pain Disposition: Home, Self-Care Condition on Discharge: Good Instructions: DI for Headache Additional Instructions: Please follow-up with your embedded firmware developer if you continue to have chest pain. Referrals: Teo Dominguez MD [Primary Care Provider] - - Critical Care Critical Care Time: No Attestation: On 01/19/20, the high probability of a clinically significant, sudden or life threatening deterioration of the following system(s) required my full and direct attention, intervention and personal management. The time I documented below is in addition to time spent performing reported procedures but includes the following listed in this critical care notation. Medical Decision Making - Medical Records Medical records reviewed: Yes: I reviewed the patient's medical records. - Luis Felipe Inquiry Pt receiving controlled substance: No Vital Signs: 01/19/20 11:08 01/19/20 11:17 01/19/20 11:55 Temperature 98 F Temperature Source Oral Pulse Rate [Left Radial] 68 63 62 Respiratory Rate 16 Blood Pressure [Right Arm] 134/75 134/75 144/87 H Blood Pressure Mean [Right Arm] 94 94 106 Blood Pressure Source [Right Arm] Automatic Cuff Automatic Cuff Blood Pressure Position [Right Arm] Sitting Sitting Sitting 02 Sat by Pulse Oximetry 98 95 94 L Oxygen Delivery Method Room Air Room Air Room Air 01/19/20 12:23 01/19/20 12:31 01/19/20 13:01 Temperature Temperature Source Pulse Rate [Left Radial] 62 78 65 Respiratory Rate Blood Pressure [Right Arm] 119/78 124/86 110/77 Blood Pressure Mean [Right Arm] 91 98 88 Blood Pressure Source [Right Arm] Automatic Cuff Automatic Cuff Automatic Cuff Blood Pressure Position [Right Arm] Sitting Sitting Sitting 02 Sat by Pulse Oximetry 95 96 98 Oxygen Delivery Method Room Air Room Air - Lab Data Lab results reviewed: Yes: I reviewed the patient's lab results. Lab Results 01/19/20 11:10: WBC 6.3, RBC 4.65, Hgb 14.2, Hct 40.8 L, MCV 87.7, MCH 30.6, MCHC 34.9, RDW 13.4, Plt Count 223, MPV 7.3 L, Neut % (Auto) 59.6, Lymph % (Auto) 33.3, Smyth % (Auto) 5.4, Eos % (Auto) 1.0, Baso % (Auto) 0.7, Neut # (Auto) 3.8, Lymph # (Auto) 2.1, Smyth # (Auto) 0.3, Eos # (Auto) 0.1, Baso # (Auto) 0.0 01/19/20 11:10: Sodium 141, Potassium 3.9, Chloride 104, Carbon Dioxide 26, Anion Gap 14.9, BUN 15, Creatinine 0.90, Estimated Creat Clear 95, Estimated GFR 84, Est GFR ( Amer) 102, Glucose 117 H, Calcium 9.9, Troponin I < 0.01 Result diagrams: 01/19/20 11:10 01/19/20 11:10 Orders (Tests/Meds): ED MEDICATIONS Discontinued Medications Generic Name Dose Route Start Last Admin Trade Name Carmela PRN Reason Stop Dose Admin Hydromorphone HCl 1 mg 01/19/20 13:13 01/19/20 13:05 Dilaudid 2mg/Ml Syringe IV 01/19/20 13:14 1 mg ONCE ONE Administration Hydromorphone HCl 1 mg 01/19/20 13:13 01/19/20 11:51 Dilaudid 2mg/Ml Syringe IV 01/19/20 13:14 1 mg ONCE ONE Administration ORDERS Category Date Time Status Troponin I Q3H Lab 01/19/20 13:20 Received Troponin I Q3H Lab 01/19/20 17:30 Ordered - Radiology Data #1 Image(s): Chest Image Reviewed: Yes I reviewed the patient's radiology results Preliminary Findings: Normal/NAD - ECG Data Tracing #1 I reviewed this ECG and interpreted as documented below: Normal Sinus Rhythm: Yes Medical Decision Narrative: I offered to admit the patient secondary to chest pain he did refuse. He states of his chest pain gets worse he will go to [place]. He states all he wants his relief for his headache. Patient received medications and his headache did improve after medications. General Adult HPI - General Chief complaint: Headache Stated complaint: headache Time Seen by Provider: 01/19/20 13:17 Mode of Arrival: Ambulatory Source of Information: Patient Limitations: No Limitations Description of Symptoms (Recalled from ER Triage Doc. by RN): to e
[2020-01-19 14:00] LABS: Troponin I < 0.01 ng/ml (0.00-0.034)
--- NOTE | 2020-01-19 14:15 | PC.NURSE ---
Pt became nauseated and vomited. Pt's daughter states that she believes he is anxious. Pt's nurse aware of nausea.
== END 2020-01-19 16:19 | disposition home or self-care (01) ==
PROVIDERS: Emergency Provider Family Medicine; PCP Emergency Medicine
DX: G44.209 Tension-type headache, unspecified, not intractable (principal); R06.00 Dyspnea, unspecified; Z79.899 Other long term (current) drug therapy; Z88.0 Allergy status to penicillin; E11.9 Type 2 diabetes mellitus without complications; E78.5 Hyperlipidemia, unspecified; I10 Essential (primary) hypertension; E03.9 Hypothyroidism, unspecified; J44.9 Chronic obstructive pulmonary disease, unspecified; I25.10 Atherosclerotic heart disease of native coronary artery without angina pectoris; Z88.2 Allergy status to sulfonamides; Z91.040 Latex allergy status
CPT/HCPCS: 70450; 71045; 80048; 84484; 85025; 93005; 96365; 96374; 96375; 96376; 99284; J2405

== ENCOUNTER 2020-01-27 15:08 | Emergency (ER) | payer MEDICARE, OTHER, SELFPAY ==
--- NOTE | 2020-01-27 15:03 | ECG_ITS ---
APPROVED REPORT Exam: Resting ECG HR:61 bpm ECG Measurements Heart Rate 61 AXES PA 180 P 57 QRSd 96 QRS -1 QT 424 T 43 QTc 426 <Conclusion> Sinus rhythm with premature supraventricular complexes Otherwise normal ECG Electronically signed by : Gaudencio Kaiser, 01/28/2020 22:05:37
[2020-01-27 15:08] VITALS: BP 129/80; PULSE 58; RESP 18; TEMP 36.8; O2SAT 96; BMI 31.0
--- NOTE | 2020-01-27 15:16 | XR_ITS ---
PROCEDURE: XR CHEST PORTABLE Patient Age:64Y CLINICAL HISTORY: CP chest pain nonsmoker COMPARISON: CXR2V XR chest 2V from 08/11/2018 CT ANGIO CHEST from 07/01/2019 XR CHEST PORTABLE from 07/01/2019 XR CHEST PORTABLE from 01/19/2020 FINDINGS: AP portable upright CXR performed today and compared to June 2019. Nothing definitely acute. Lungs appear mildly hyperexpanded particularly towards upper lobes. No discrete acute findings but upper normal markings at the medial right lung base have been seen previously and appear stable.. The heart is normal in size. Rula and mediastinal structures appear satisfactory. Chest wall unremarkable. No pleural effusions but no pneumothorax. IMPRESSION: No acute findings. Stable chest Dictated by: Bishop Lezama MD 01/27/2020 22:58 Electronically signed by Bishop Lezama MD in [place] 01/27/2020 22:58
[2020-01-27 15:29] VITALS: BMI 31.0
[2020-01-27 15:31] LABS: Basophils % 0.6 % (0.1-2.0); Eosinophils # 0.1 K/mm3 (0.0-0.4); Eosinophils % 0.9 % (0.1-12.0); Hematocrit 38.3 % (42.0-52.0); Lymphocytes # 1.8 K/mm3 (0.7-4.5); Lymphocytes % 32.4 % (10-50); Mean Corpuscular Hemoglobin 30.6 pg (27.0-31.2); Mean Corpuscular Volume 90.1 fl (80-94); Mean Platelet Volume 7.9 fl (7.4-10.4); Monocytes # 0.3 K/mm3 (0.1-1.0); Monocytes % 5.3 % (1.7-9.3); Neutrophils # 3.4 K/mm3 (1.8-7.8); Neutrophils % 60.8 % (37.0-80.0); Platelet Count 192 K/mm3 (142-424); Red Blood Count 4.25 M/mm3 (4.60-6.20); Red Cell Distribution Width 13.2 % (11.5-17.5); White Blood Count 5.6 K/mm3 (4.8-10.8)
[2020-01-27 15:33] LABS: Chloride 103 mmol/L (98-107)
[2020-01-27 15:34] LABS: Potassium 3.7 mmoL/L (3.5-5.1); Sodium 140 mmol/L (136-145)
[2020-01-27 15:36] LABS: Blood Urea Nitrogen 17 mg/dl (9-20); Creatinine Clearance Estimated 95 mL/min (50-200); Estimated Glomerular Filt Rate 84 ml/min (>60); GFR (African American) 102 ML/MIN (>60)
[2020-01-27 15:37] LABS: Anion Gap 11.7 mEq/L (5-15); Calcium 9.5 mg/dl (8.4-10.2); Carbon Dioxide 29 mmol/L (22.0-30.0); Creatine Kinase 168 U/L (55-170); Glucose 104 mg/dl (74-100)
--- NOTE | 2020-01-27 15:41 | HMH.EDCP ---
ED Disposition Clinical Impression: Stable angina Disposition: Home, Self-Care Condition on Discharge: Fair Referrals: Provider,MD Robinson [Primary Care Provider] - Sami Castellanos MD [Staff Physician] - - Critical Care Critical Care Time: No Attestation: On 01/27/20, the high probability of a clinically significant, sudden or life threatening deterioration of the following system(s) required my full and direct attention, intervention and personal management. The time I documented below is in addition to time spent performing reported procedures but includes the following listed in this critical care notation. Medical Decision Making - Medical Records Medical records reviewed: Yes: I reviewed the patient's medical records. - Luis Felipe Inquiry Pt receiving controlled substance: No Vital Signs: 01/27/20 15:08 01/27/20 16:08 01/27/20 16:31 Temperature 98.3 F Temperature Source Oral Pulse Rate [Right Radial] 58 L 55 L 53 L Respiratory Rate 18 Blood Pressure [Right Arm] 129/80 118/73 100/64 L Blood Pressure Mean [Right Arm] 96 88 76 Blood Pressure Source [Right Arm] Automatic Cuff Automatic Cuff Automatic Cuff Blood Pressure Position [Right Arm] Sitting Sitting Sitting 02 Sat by Pulse Oximetry 96 93 L 94 L Oxygen Delivery Method Room Air Room Air Room Air - Lab Data Lab results reviewed: Yes: I reviewed the patient's lab results. Lab Results 01/27/20 15:14: WBC 5.6, RBC 4.25 L, Hgb 13.0 L, Hct 38.3 L, MCV 90.1, MCH 30.6, MCHC 34.0, RDW 13.2, Plt Count 192, MPV 7.9, Neut % (Auto) 60.8, Lymph % (Auto) 32.4, [place] % (Auto) 5.3, Eos % (Auto) 0.9, Baso % (Auto) 0.6, Neut # (Auto) 3.4, Lymph # (Auto) 1.8, [place] # (Auto) 0.3, Eos # (Auto) 0.1, Baso # (Auto) 0.0 01/27/20 15:14: Sodium 140, Potassium 3.7, Chloride 103, Carbon Dioxide 29, Anion Gap 11.7, BUN 17, Creatinine 0.90, Estimated Creat Clear 95, Estimated GFR 84, Est GFR ( Amer) 102, Glucose 104 H, Calcium 9.5, Total Creatine Kinase 168, CK-MB (CK-2) 0.9, Troponin I < 0.01, NT-Pro-B Natriuret Pep 117 01/27/20 16:00: Urine Color Yellow, Urine Appearance Clear, Urine pH 6.0, Ur Specific [place] 1.025, Urine Protein Negative, Urine Glucose (UA) Negative, Urine Ketones Negative, Urine Blood Trace-i, Urine Nitrate Negative, Urine Bilirubin Negative, Urine Urobilinogen 1.0, Ur Leukocyte Esterase Negative, Urine WBC Occasional, Ur Squamous Epith Cells Occasional, Urine Bacteria Trace 01/27/20 18:15: Troponin I < 0.01 Result diagrams: 01/27/20 15:14 01/27/20 15:14 Orders (Tests/Meds): ED MEDICATIONS Generic Name Dose Route Start Last Admin Trade Name Freq PRN Reason Stop Dose Admin Nitroglycerin 0.4 mg 01/27/20 15:16 Nitrostat 0.4mg Sl Tablet SL 02/26/20 15:15 [id number] PRN Chest Pain Discontinued Medications Generic Name Dose Route Start Last Admin Trade Name Freq PRN Reason Stop Dose Admin Aspirin 243 mg 01/27/20 15:41 01/27/20 15:54 Aspirin 81mg Chewable Tablet PO 01/27/20 15:42 243 mg ONCE ONE Administration ORDERS Category Date Time Status XR chest portable Stat Exams 01/27/20 15:16 Taken Troponin I Q3H Lab 01/27/20 21:30 Ordered - Radiology Data #1 Image(s): Chest Image Reviewed: Yes I reviewed the patient's radiology results Preliminary Findings: Normal/NAD - ECG Data Tracing #1 Normal Sinus Rhythm: Yes Arrhythmias present: PVC's - CHUCHO Score for Non-Stemi Age of Patient: 60-69 years old Heart Rate: 50-69 bpm Systolic Blood Pressure: 120-139 mmhg Serum Creatinine: 0.40-0.79 mg/dl CHF Killip Class: I-No CHF Other Risk Factors: None Non-Stemi Risk Score: 99 Chest Pain HPI - General Chief Complaint: Chest Pain Stated Complaint: chest pain Time Seen by Provider: 01/27/20 15:10 Mode of Arrival: Ambulatory Source of Information: Patient Limitations: No Limitations Description of Symptoms (Recalled from ER Triage Doc. by RN): Pt reports chest tightness, states having pa
--- NOTE | 2020-01-27 15:44 | PC.NURSE ---
Pt reports he takes a medication that has a nitro component to it, states he is unsure of the name of it. Notified ER MD of this, ER MD states not to give pt nitro as ordered.
[2020-01-27 15:46] LABS: Creatine Kinase MB 0.9 ng/ml (0.0-2.03); NT Pro Brain Natriuretic Pep. 117 pg/mL (0-125)
[2020-01-27 15:52] LABS: Troponin I < 0.01 ng/ml (0.00-0.034)
[2020-01-27 16:05] LABS: Microscopic, Urine URINE MICROSCOPIC (MICROSCOPIC)
[2020-01-27 16:08] VITALS: BP 118/73; PULSE 55; O2SAT 93
[2020-01-27 16:08] LABS: Appearance,Urine CLEAR (Clear); Bilirubin,Urine Negative (Negative); Blood, Urine TRACE-I (Negative); Color,Urine YELLOW (Yellow); Glucose,Urine (UA) Negative (Negative); Ketones,Urine Negative (Negative); Leukocyte Esterase,Urine Negative (Negative); Nitrate,Urine Negative (Negative); Protein,Urine Negative (Negative); Specific Gravity, Urine 1.025 (1.005-1.030)
[2020-01-27 16:31] VITALS: BP 100/64; PULSE 53; O2SAT 94
[2020-01-27 17:01] LABS: Bacteria,Urine Trace /lpf; Squamous Epithelial Cell,Urine Occasional #/hpf (0-5); WBC,Urine Occasional #/hpf (0-3)
[2020-01-27 18:56] LABS: Troponin I < 0.01 ng/ml (0.00-0.034)
[2020-01-27 19:42] VITALS: BP 125/76; PULSE 70; RESP 16; TEMP 36.7; O2SAT 98
== END 2020-01-27 19:44 | disposition home or self-care (01) ==
PROVIDERS: Emergency Provider Emergency Medicine
DX: I20.8 Other forms of angina pectoris (principal); E11.9 Type 2 diabetes mellitus without complications; I10 Essential (primary) hypertension; E78.5 Hyperlipidemia, unspecified; E03.9 Hypothyroidism, unspecified; I25.10 Atherosclerotic heart disease of native coronary artery without angina pectoris; Z87.891 Personal history of nicotine dependence; Z79.899 Other long term (current) drug therapy; Z79.84 Long term (current) use of oral hypoglycemic drugs; Z88.0 Allergy status to penicillin; Z88.2 Allergy status to sulfonamides; Z91.040 Latex allergy status
CPT/HCPCS: 36415; 71045; 80048; 81001; 82550; 82553; 83880; 84484; 85025; 93005; 99283; 99284

== ENCOUNTER → 2020-02-06 12:05 | Outpatient (CLI) | payer MEDICARE, OTHER, SELFPAY ==
--- NOTE | 2020-02-06 | CA_ITS ---
APPROVED REPORT Exam: Pharmacologic Technologist: Karen Gabriel Ht: 5 ft 8 in Wt: 205 lbs BSA: 2.07 m2 HR: 45 bpm BP: 140/77 mmHg Indications: Chest pain Medical History Medications: Omeprazole,,,,, Levothyroxine,,,,, Furosemide (LASIX),,,,, Aspirin,,,,, Metoprolol,,,,, Metformin,,,,, Hydrocodone,,,,, Losartan,,,,, Atorvastatin,,,,, HCTZ,,,,, Albuterol,,,,, Methocarbamol,,,,, Stress Test Details Test: LEXISCAN HR Resting HR: 51 bpm Max Heart Rate (APMHR): 154 bpm Max HR Achieved: 82 bpm Target HR (85% APMHR): 130 bpm % of APMHR: 53 Recovery HR: 50 bpm BP Resting BP: 140.0/77.0 mmHg Max BP: 153.0/83.0 mmHg Recovery BP: 138.0/82.0 mmHg ECG Clinical Exercise duration: 04:01 min Highest Stage Achieved: Exercise capacity: 1.0 METs Stress ECG Conclusion Resting ECG: Marked sinus bradycardia, otherwise normal. Symtpoms: Chest tightness, shortness of air, nausea malaise. Arrhythmias/Ectopy: Occasional PVC ST-T Changes: No significant changes. Conclusion: Unremarkable Lexiscan stress. Myoview images reported separately. Test Summary RECOVERY 08:40 . . 48 . 138/ 82 . . REST 04:24 . . 51 . 140/ 77 . . Stage 1 . . . . . . . Myoview Injected Stage 1 01:00 . . 68 . . . . Stage 2 01:00 . . 77 . 153/ 83 . . Stage 3 01:00 . . 80 . 153/ 86 . . Stage 4 . . . . . . . Nausea Stage 4 01:00 . . 71 . . . . Stage 4 01:01 . . 71 . . . Stop exercise at 04:01 RECOVERY 01:00 . . 68 . . . . RECOVERY 02:00 . . 60 . . . . RECOVERY . . . . . . . chest tightness RECOVERY 03:00 . . 51 . . . . RECOVERY 04:00 . . 53 . . . . RECOVERY 05:00 . . 51 . . . . RECOVERY 06:00 . . 55 . 145/ 79 . . RECOVERY 07:00 . . 53 . 145/ 79 . . RECOVERY 08:00 . . 56 . 138/ 82 . . RECOVERY 08:40 . . 48 . 138/ 82 . . Electronically signed by : Star Waterman, 02/06/2020 18:49:58
--- NOTE | 2020-02-06 12:05 | NM_ITS ---
APPROVED REPORT Exam: Nuclear Stress Test Indication: chest pain..soa..palpitation..syncope..fatigue Patient Location: Outpatient Stress Tech: Karen Gabriel [place] Tech:Jeannette Carvajal, ARRT, RT (R)(N) Ht: 5 ft 8 in Wt: 205 lbs HR: 45 bpm BP: 140/77 mmHg BSA: 2.07 m2 BMI: 31.1 History: chest pain..soa..palpitation..syncope..fatigue Procedure: Patient received a 0.4 mg of intravenous Lexiscan, resting heart rate 45 bpm, resting blood pressure 140/77 mmHg, with Lexiscan maximum heart rate achived was 77 bpm which is Less than 85 % of the maximum predicted heart rate and blood pressure was 152/83 mmHg. Electrocardiogram Resting electrocardiogram showed sinus bradycardia, with Lexiscan less than 1.[address] segment depression noted from the baseline EKG. The EKG portion of the Lexiscan is nondiagnostic. Cardiac Stress and Resting SPECT Images: Cardiac Stress and Resting SPECT images were obtained using technetium 99m Myoview 31.6 mCi stress and 10.71 mCi at rest. Gated SPECT for the analysis of segmental wall motion and calculation of ejection fraction also done. Cardiac stress and resting SPECT images show fixed defect involving the inferior and inferior apical wall with reduced contractility and the gated SPECT is likely secondary to prior nontransmural myocardial scarring, no significant federico-infarct ischemia seen. Computer derived ejection fraction 59% with moderate inferior wall hypokinesis, right ventricle is normal size and contractility. Conclusion: 1. The EKG portion of the Lexiscan Myoview is nondiagnostic. 2. Scintigraphic evidence of nontransmural myocardial scarring involving the inferior and inferior apical wall, without significant federico-infarct ischemia. Computer derived ejection fraction 59% with segmental wall motion abnormality described above. Right ventricle is normal size and contractility. 3. Abnormal Lexiscan Myoview study. Electronically signed by : Star Waterman, 02/06/2020 18:52:36
--- NOTE | 2020-02-06 12:38 | HMH.ITSHM ---
Current Home Medications as stated by this patient Gigi Nolan SR or media sales representative. []RANOLAZINE METHOCARBAMOL METFORMIN LOSARTAN LEVOTHYROXINE HYDROCODONE HCTZ ATORVASTATIN ALBUTEROL OMEPRAZOLE METOPROLOL FUROSEMIDE ASA ALFUZOSIN
== END ==
PROVIDERS: PCP Emergency Medicine; Visit Provider Urology
DX: E11.8 Type 2 diabetes mellitus with unspecified complications (principal); E78.2 Mixed hyperlipidemia; I11.9 Hypertensive heart disease without heart failure; I25.10 Atherosclerotic heart disease of native coronary artery without angina pectoris; I25.118 Atherosclerotic heart disease of native coronary artery with other forms of angina pectoris; I71.4 Abdominal aortic aneurysm, without rupture; R06.02 Shortness of breath; R07.9 Chest pain, unspecified; R53.83 Other fatigue; Z95.5 Presence of coronary angioplasty implant and graft; Z79.84 Long term (current) use of oral hypoglycemic drugs
CPT/HCPCS: 78452; 93017; A9502; J2785

== ENCOUNTER 2020-02-07 15:25 | Emergency (ER) | payer MEDICARE, OTHER, SELFPAY ==
--- NOTE | 2020-02-07 15:19 | ECG_ITS ---
APPROVED REPORT Exam: Resting ECG HR:63 bpm ECG Measurements Heart Rate 63 AXES NE 174 P 50 QRSd 94 QRS -19 QT 438 T 45 QTc 448 <Conclusion> Normal sinus rhythm Minimal voltage criteria for LVH, may be normal variant Borderline ECG Electronically signed by : Dominguez Juarez, 02/09/2020 07:54:05
[2020-02-07 15:25] VITALS: BP 161/94; PULSE 56; RESP 16; O2SAT 98; BMI 31.1
--- NOTE | 2020-02-07 15:30 | XR_ITS ---
PROCEDURE: XR CHEST PORTABLE CLINICAL HISTORY: chest pain COMPARISON: CT CT ANGIO CHEST from 07/01/2019 CR XR CHEST PORTABLE from 07/01/2019 CR XR CHEST PORTABLE from 01/19/2020 CR XR CHEST PORTABLE from 01/27/2020 FINDINGS: The cardiomediastinal silhouette and pulmonary vascularity are within normal limits. The lungs are clear without infiltrates, suspicious nodules, or pleural effusions. No acute bony abnormalities. IMPRESSION: No acute findings. Dictated b Phillip Mitchell MD 02/07/2020 16:07 Phillip Mitchell MD in [facility] 02/07/2020 16:07
--- NOTE | 2020-02-07 15:35 | HMH.EDGENADL ---
ED Disposition Clinical Impression: Atypical chest pain Disposition: Home, Self-Care Condition on Discharge: Good Instructions: DI for Atypical Chest Pain Additional Instructions: You have been evaluated for atypical chest pain. Please take all medications as prescribed. Follow-up with Dr. Castellanos in clinic. Follow-up with your primary care physician in 24 to 48 hours. Return to the emergency department if you have any new or worsening symptoms. Referrals: Provider,Referral, [Referring] - Time of Disposition: 18:16 - Critical Care Critical Care Time: No Attestation: On 02/07/20, the high probability of a clinically significant, sudden or life threatening deterioration of the following system(s) required my full and direct attention, intervention and personal management. The time I documented below is in addition to time spent performing reported procedures but includes the following listed in this critical care notation. Medical Decision Making - Medical Records Medical records reviewed: Yes: I reviewed the patient's medical records. - Luis Felipe Inquiry Pt receiving controlled substance: No Vital Signs: 02/07/20 15:25 02/07/20 17:19 02/07/20 18:00 Temperature Temperature Source Pulse Rate Pulse Rate [Right] 56 L 56 L 48 L Respiratory Rate 16 16 Blood Pressure Blood Pressure [Right Arm] 161/94 H 124/74 122/72 Blood Pressure Mean [Right Arm] 116 90 88 Blood Pressure Source Blood Pressure Source [Right Arm] Automatic Cuff Automatic Cuff Automatic Cuff Blood Pressure Position Blood Pressure Position [Right Arm] Sitting Sitting Sitting 02 Sat by Pulse Oximetry 98 98 97 Oxygen Delivery Method Room Air Room Air Room Air 02/07/20 18:20 Temperature 98.5 F Temperature Source Oral Pulse Rate 55 L Pulse Rate [Right] Respiratory Rate 16 Blood Pressure 122/72 Blood Pressure [Right Arm] Blood Pressure Mean [Right Arm] Blood Pressure Source Automatic Cuff Blood Pressure Source [Right Arm] Blood Pressure Position Sitting Blood Pressure Position [Right Arm] 02 Sat by Pulse Oximetry Oxygen Delivery Method Room Air - Lab Data Lab Results 02/07/20 15:30: WBC 7.3, RBC 4.52 L, Hgb 14.0 L, Hct 39.5 L, MCV 87.3, MCH 31.0, MCHC 35.5 H, RDW 13.6, Plt Count 210, MPV 8.0, Neut % (Auto) 60.6, Lymph % (Auto) 32.1, [place] % (Auto) 5.2, Eos % (Auto) 1.7, Baso % (Auto) 0.5, Neut # (Auto) 4.4, Lymph # (Auto) 2.4, [place] # (Auto) 0.4, Eos # (Auto) 0.1, Baso # (Auto) 0.0 02/07/20 15:30: Sodium 140, Potassium 4.1, Chloride 105, Carbon Dioxide 26, Anion Gap 13.1, BUN 15, Creatinine 1.00, Estimated Creat Clear 96, Estimated GFR 75, Est GFR ( Amer) 90, Glucose 102 H, Calcium 9.8, Troponin I < 0.01 02/07/20 17:50: Troponin I < 0.01 Result diagrams: 02/07/20 15:30 02/07/20 15:30 Orders (Tests/Meds): ED MEDICATIONS Discontinued Medications Generic Name Dose Route Start Last Admin Trade Name Freq PRN Reason Stop Dose Admin Ondansetron HCl 4 mg 02/07/20 15:36 02/07/20 15:38 Zofran 4mg/2ml Vial IV 02/07/20 15:37 4 mg ONCE ONE Administration ORDERS Category Date Time Status Troponin I Q3H Lab 02/07/20 21:30 Ordered - ECG Data Tracing #1 Sinus rhythm with ventricular rate of 63 bpm. QRS 94, QTc 448. Evidence of LVH. - CHUCHO Score for Non-Stemi Age of Patient: 60-69 years old Heart Rate: 50-69 bpm Systolic Blood Pressure: 160-199 mmHg Serum Creatinine: 0.80-1.19 mg/dl CHF Killip Class: I-No CHF Other Risk Factors: None Non-Stemi Risk Score: 78 Medical Decision Narrative: In summary this is a 64-year-old male with history of CAD presenting to the emergency department with chest pain. Patient appears uncomfortable on arrival. Vital signs are stable. Will obtain CBC, BMP, chest x-ray, EKG, troponin profile. Patient given 325 chewable aspirin and 4 mg of Zofran. I reviewed patient's stress test from yesterday. It showed nontransmural scarring on
[2020-02-07 15:39] LABS: Basophils % 0.5 % (0.1-2.0); Eosinophils # 0.1 K/mm3 (0.0-0.4); Eosinophils % 1.7 % (0.1-12.0); Hematocrit 39.5 % (42.0-52.0); Lymphocytes # 2.4 K/mm3 (0.7-4.5); Lymphocytes % 32.1 % (10-50); Mean Corpuscular HGB Conc 35.5 g/dL (31.8-35.4); Mean Corpuscular Volume 87.3 fl (80-94); Monocytes # 0.4 K/mm3 (0.1-1.0); Monocytes % 5.2 % (1.7-9.3); Neutrophils # 4.4 K/mm3 (1.8-7.8); Neutrophils % 60.6 % (37.0-80.0); Platelet Count 210 K/mm3 (142-424); Red Blood Count 4.52 M/mm3 (4.60-6.20); Red Cell Distribution Width 13.6 % (11.5-17.5); White Blood Count 7.3 K/mm3 (4.8-10.8)
--- NOTE | 2020-02-07 15:40 | PC.NURSE ---
MD at bedside when pt arrived
[2020-02-07 15:48] LABS: Chloride 105 mmol/L (98-107); Potassium 4.1 mmoL/L (3.5-5.1); Sodium 140 mmol/L (136-145)
[2020-02-07 15:51] LABS: Anion Gap 13.1 mEq/L (5-15); Blood Urea Nitrogen 15 mg/dl (9-20); Calcium 9.8 mg/dl (8.4-10.2); Carbon Dioxide 26 mmol/L (22.0-30.0); Creatinine Clearance Estimated 96 mL/min (50-200); Estimated Glomerular Filt Rate 75 ml/min (>60); GFR (African American) 90 ML/MIN (>60); Glucose 102 mg/dl (74-100)
[2020-02-07 16:09] LABS: Troponin I < 0.01 ng/ml (0.00-0.034)
--- NOTE | 2020-02-07 16:30 | PC.NURSE ---
speaking with Vahid Santo
[2020-02-07 17:19] VITALS: BP 124/74; PULSE 56; RESP 16; O2SAT 98
[2020-02-07 18:00] VITALS: BP 122/72; PULSE 48; O2SAT 97
[2020-02-07 18:20] VITALS: BP 122/72; PULSE 55; RESP 16; TEMP 36.9; O2SAT 98
[2020-02-07 18:31] LABS: Troponin I < 0.01 ng/ml (0.00-0.034)
== END 2020-02-07 18:44 | disposition home or self-care (01) ==
PROVIDERS: Emergency Provider Emergency Medicine; PCP Emergency Medicine
DX: R07.89 Other chest pain (principal); E11.65 Type 2 diabetes mellitus with hyperglycemia; I10 Essential (primary) hypertension; J44.9 Chronic obstructive pulmonary disease, unspecified; I25.10 Atherosclerotic heart disease of native coronary artery without angina pectoris; E78.5 Hyperlipidemia, unspecified; E03.9 Hypothyroidism, unspecified; Z95.5 Presence of coronary angioplasty implant and graft; Z87.891 Personal history of nicotine dependence; Z91.040 Latex allergy status; Z88.0 Allergy status to penicillin; Z88.2 Allergy status to sulfonamides; Z82.49 Family history of ischemic heart disease and other diseases of the circulatory system; Z79.899 Other long term (current) drug therapy
CPT/HCPCS: 71045; 80048; 84484; 85025; 93005; 96374; 99283; J2405

== ENCOUNTER 2020-02-09 14:20 | Emergency (ER) | payer MEDICARE, OTHER, SELFPAY ==
--- NOTE | 2020-02-09 14:17 | ECG_ITS ---
APPROVED REPORT Exam: Resting ECG HR:61 bpm ECG Measurements Heart Rate 61 AXES DC 172 P 60 QRSd 94 QRS -11 QT 428 T 56 QTc 430 <Conclusion> Normal sinus rhythm Normal ECG Electronically signed by : Gaudencio Kaiser, 02/10/2020 21:03:02
[2020-02-09 14:21] VITALS: BP 149/88; PULSE 70; RESP 18; TEMP 37.1; O2SAT 91; BMI 29.5
--- NOTE | 2020-02-09 14:28 | XR_ITS ---
PROCEDURE: XR CHEST 2V CLINICAL HISTORY: chest pain COMPARISON: CT CT ANGIO CHEST from 07/01/2019 CR XR CHEST PORTABLE from 01/19/2020 CR XR CHEST PORTABLE from 01/27/2020 CR XR CHEST PORTABLE from 02/07/2020 FINDINGS: The cardiomediastinal silhouette and pulmonary vascularity are within normal limits. The lungs are clear without infiltrates, suspicious nodules, or pleural effusions. No acute bony abnormalities. IMPRESSION: No acute findings. Dictated by: Phillip Mitchell MD 02/09/2020 15:52 Phillip Mitchell MD in [facility] 02/09/2020 15:52
--- NOTE | 2020-02-09 14:29 | XR_ITS ---
PROCEDURE: XR KUB CLINICAL INDICATION: abdominal pain COMPARISON: CT CT ANGIO ABDOMEN PELVIS from 07/01/2019 FINDINGS: Bowel gas pattern is nonspecific. No evidence of intestinal obstruction. There is a mild amount of retained colonic feces in the rectosigmoid region. Surgical clips are present in the right quadrant. IMPRESSION: No acute findings. Dictated by: Phillip Mitchell MD 02/09/2020 16:01 Phillip Mitchell MD in [facility] 02/09/2020 16:01
[2020-02-09 14:42] LABS: Basophils # 0.1 K/mm3 (0-0.2); Basophils % 0.8 % (0.1-2.0); Eosinophils # 0.1 K/mm3 (0.0-0.4); Eosinophils % 1.2 % (0.1-12.0); Hematocrit 44.1 % (42.0-52.0); Hemoglobin 15.4 g/dL (14.1-18.0); Lymphocytes # 2.5 K/mm3 (0.7-4.5); Lymphocytes % 34.2 % (10-50); Mean Corpuscular Volume 88.5 fl (80-94); Mean Platelet Volume 7.4 fl (7.4-10.4); Monocytes # 0.4 K/mm3 (0.1-1.0); Neutrophils # 4.2 K/mm3 (1.8-7.8); Neutrophils % 57.7 % (37.0-80.0); Platelet Count 232 K/mm3 (142-424); Red Blood Count 4.99 M/mm3 (4.60-6.20); Red Cell Distribution Width 13.5 % (11.5-17.5); White Blood Count 7.3 K/mm3 (4.8-10.8)
[2020-02-09 14:43] LABS: Chloride 102 mmol/L (98-107); Potassium 4.2 mmoL/L (3.5-5.1); Sodium 141 mmol/L (136-145)
[2020-02-09 14:46] LABS: Alanine Aminotransferase 27 U/L (12-78); Albumin Level 4.6 g/dl (3.5-5.0); Albumin/Globulin Ratio 1.4 (1.1-1.8); Alkaline Phosphatase 84 U/L (38-126); Amylase 54 U/L (30-110); Anion Gap 14.2 mEq/L (5-15); Aspartate Amino Transferase 25 U/L (17-59); Bilirubin,Total 0.9 mg/dl (0.2-1.3); Blood Urea Nitrogen 18 mg/dl (9-20); Calcium 10.4 mg/dl (8.4-10.2); Carbon Dioxide 29 mmol/L (22.0-30.0); Creatinine Clearance Estimated 93 mL/min (50-200); Estimated Glomerular Filt Rate 75 ml/min (>60); GFR (African American) 90 ML/MIN (>60); Globulin 3.2 g/dL (1.3-3.2); Glucose 113 mg/dl (74-100); Lipase 27 U/L (23-300); Total Protein,Serum 7.8 g/dl (6.3-8.2)
[2020-02-09 14:59] LABS: Troponin I < 0.01 ng/ml (0.00-0.034)
--- NOTE | 2020-02-09 15:15 | HMH.EDGENADL ---
ED Disposition <Teo Dominguez - Last Filed: 02/09/20 15:15> Condition on Discharge: Good - Critical Care Critical Care Time: No <Colt Ibarra - Last Filed: 02/09/20 16:27> Clinical Impression: CAD (coronary artery disease), Diabetes mellitus, Panic attacks Disposition: Home, Self-Care Instructions: DI for Acute Pain -- Adult Additional Instructions: Please follow-up with Dr. Dominguez on Wednesday or Wednesday of next week. Please car pick up driver your prescription. Prescriptions: LORazepam [Ativan 0.5mg tablet] 0.5 mg PO TID PRN 3 Days #15 tab-cap PRN Reason: Agitation Prescription Printed Referrals: Teo Dominguez MD [Primary Care Provider] - Attestation: On 02/09/20, the high probability of a clinically significant, sudden or life threatening deterioration of the following system(s) required my full and direct attention, intervention and personal management. The time I documented below is in addition to time spent performing reported procedures but includes the following listed in this critical care notation. Medical Decision Making - Lab Data Result diagrams: 02/09/20 14:20 02/09/20 14:20 <Teo Dominguez - Last Filed: 02/09/20 15:15> - Medical Records Medical records reviewed: Yes: I reviewed the patient's medical records. - Lui sFelipe Inquiry Pt receiving controlled substance: Yes (Ativan) Luis Felipe was queried for this patient: Yes Reference #:: [id number] Risks and benefits of using a controlled substance: were discussed with pt by me - Lab Data Lab results reviewed: Yes: I reviewed the patient's lab results. Result diagrams: 02/09/20 14:20 02/09/20 14:20 - Radiology Data #1 Image(s): Chest Preliminary Findings: Normal/NAD - ECG Data Tracing #1 I reviewed this ECG and interpreted as documented below: Normal Sinus Rhythm: Yes - CHUCHO Score for Non-Stemi Age of Patient: 60-69 years old Heart Rate: 50-69 bpm Systolic Blood Pressure: 120-139 mmhg Serum Creatinine: 0.40-0.79 mg/dl CHF Killip Class: I-No CHF Other Risk Factors: None Non-Stemi Risk Score: 99 Risk Stratification: 1-108 = Low Risk <Colt Ibarra - Last Filed: 02/09/20 16:27> Vital Signs: 02/09/20 14:21 02/09/20 15:22 02/09/20 16:03 Temperature 98.7 F Temperature Source Oral Pulse Rate [Right Radial] 70 54 L 53 L Respiratory Rate 18 Blood Pressure [Right Arm] 149/88 H 107/75 L 131/85 Blood Pressure Mean [Right Arm] 108 85 100 Blood Pressure Source [Right Arm] Automatic Cuff Automatic Cuff Blood Pressure Position [Right Arm] Sitting Sitting 02 Sat by Pulse Oximetry 91 L 92 L 92 L Oxygen Delivery Method Room Air Room Air Room Air - Lab Data Lab Results 02/09/20 14:20: WBC 7.3, RBC 4.99, Hgb 15.4, Hct 44.1, MCV 88.5, MCH 31.0, MCHC 35.0, RDW 13.5, Plt Count 232, MPV 7.4, Neut % (Auto) 57.7, Lymph % (Auto) 34.2, [place] % (Auto) 6.0, Eos % (Auto) 1.2, Baso % (Auto) 0.8, Neut # (Auto) 4.2, Lymph # (Auto) 2.5, [place] # (Auto) 0.4, Eos # (Auto) 0.1, Baso # (Auto) 0.1 02/09/20 14:20: Sodium 141, Potassium 4.2, Chloride 102, Carbon Dioxide 29, Anion Gap 14.2, BUN 18, Creatinine 1.00, Estimated Creat Clear 93, Estimated GFR 75, Est GFR ( Amer) 90, Glucose 113 H, Calcium 10.4 H, Total Bilirubin 0.9, AST 25, ALT 27, Alkaline Phosphatase 84, Troponin I < 0.01, Total Protein 7.8, Albumin 4.6, Globulin 3.2, Albumin/Globulin Ratio 1.4, Amylase 54, Lipase 27 Orders (Tests/Meds): ED MEDICATIONS Generic Name Dose Route Start Last Admin Trade Name Freq PRN Reason Stop Dose Admin Sodium Chloride 10 ml 02/09/20 15:09 Sodium Chloride 0.9% 10ml Vial IV 03/10/20 15:08 NEEDED PRN to Dilute Lorazepam inj Discontinued Medications Generic Name Dose Route Start Last Admin Trade Name Freq PRN Reason Stop Dose Admin Lorazepam 1 mg 08/14/20 15:09 02/09/20 15:15 Ativan 2mg/Ml Vial IV 02/09/20 15:10 1 mg ONCE ONE Administration Ondansetron HCl 4 mg 02/09/20 14:59
[2020-02-09 15:22] VITALS: BP 107/75; PULSE 54; O2SAT 92
[2020-02-09 16:03] VITALS: BP 131/85; PULSE 53; O2SAT 92
[2020-02-09 16:48] VITALS: BP 127/84; PULSE 89; RESP 16; TEMP 36.7; O2SAT 99
== END 2020-02-09 16:49 | disposition home or self-care (01) ==
PROVIDERS: Emergency Provider Family Medicine; PCP Emergency Medicine
DX: R07.9 Chest pain, unspecified (principal); R06.02 Shortness of breath; F41.0 Panic disorder [episodic paroxysmal anxiety]; E11.9 Type 2 diabetes mellitus without complications; I25.10 Atherosclerotic heart disease of native coronary artery without angina pectoris; J44.9 Chronic obstructive pulmonary disease, unspecified; I10 Essential (primary) hypertension; E03.9 Hypothyroidism, unspecified; E78.5 Hyperlipidemia, unspecified; Z87.891 Personal history of nicotine dependence; Z79.84 Long term (current) use of oral hypoglycemic drugs; Z79.899 Other long term (current) drug therapy; Z91.040 Latex allergy status; Z88.0 Allergy status to penicillin; Z88.2 Allergy status to sulfonamides
CPT/HCPCS: 71046; 74018; 80053; 82150; 83690; 84484; 85025; 93005; 96374; 96375; 99284; J2405

== ENCOUNTER 2020-03-18 07:54 | Day surgery (SDC) | payer MEDICARE, OTHER, SELFPAY ==
[2020-03-18] VITALS (12 sets, daily range): BP systolic 100–163; BP diastolic 58–103; PULSE 46–63; RESP 16; TEMP 36.3; O2SAT 89–98; BMI 31.0
[2020-03-18 09:10] LABS: Basophils # 0.1 K/mm3 (0-0.2); Basophils % 0.8 % (0.1-2.0); Eosinophils # 0.1 K/mm3 (0.0-0.4); Eosinophils % 0.9 % (0.1-12.0); Hemoglobin 14.6 g/dL (14.1-18.0); Lymphocytes # 1.8 K/mm3 (0.7-4.5); Lymphocytes % 25.4 % (10-50); Mean Corpuscular Hemoglobin 31.1 pg (27.0-31.2); Mean Corpuscular Volume 91.7 fl (80-94); Mean Platelet Volume 7.6 fl (7.4-10.4); Monocytes # 0.4 K/mm3 (0.1-1.0); Neutrophils # 4.9 K/mm3 (1.8-7.8); Neutrophils % 67.8 % (37.0-80.0); Platelet Count 209 K/mm3 (142-424); Red Blood Count 4.69 M/mm3 (4.60-6.20); Red Cell Distribution Width 13.9 % (11.5-17.5); White Blood Count 7.3 K/mm3 (4.8-10.8)
[2020-03-18 09:15] LABS: Chloride 103 mmol/L (98-107); Potassium 4.1 mmoL/L (3.5-5.1); Sodium 142 mmol/L (136-145)
[2020-03-18 09:18] LABS: Anion Gap 13.1 mEq/L (5-15); Blood Urea Nitrogen 15 mg/dl (9-20); Carbon Dioxide 30 mmol/L (22.0-30.0); Creatinine Clearance Estimated 98 mL/min (50-200); Estimated Glomerular Filt Rate 84 ml/min (>60); GFR (African American) 102 ML/MIN (>60); Glucose 125 mg/dl (74-100)
[2020-03-18 09:36] LABS: Coronavirus 19 IgG Antibody Negative (Negative); Coronavirus 19 IgM Antibody Negative (Negative)
--- NOTE | 2020-03-18 11:00 | IR_ITS ---
APPROVED REPORT Patient Location: Outpatient Manager Universal: TASHI Mendoza RT (R) PROCEDURES Left heart catheterization Left ventriculogram Selective coronary angiogram INDICATION Abnormal Myoview, Known coronary artery disease, Angina pectoris, Informed consent was obtained prior to the procedure. COMPLICATIONS NONE Estimated Blood Loss: LESS THAN 10 ML TECHNIQUE One percent lidocaine used to anesthetize the right anterior aspect of the wrist. The right radial artery was accessed via the Seldinger technique. A 6 Togolese sheath was placed in the right radial artery. 2.5 mg of verapamil, 800 mcg of nitroglycerin, 1mg Lidocaine and 5000 U Heparin were given through the arterial sheath. The trap catheter was also used to perform left heart catheterization, left ventriculogram and selective coronary angiogram. At the end of the procedure the sheath was removed good hemostasis was achieved using Traclet band, patient was transferred to the postop holding area in stable condition. ANGIOGRAPHIC RESULTS The left main artery Normal The left anterior descending artery Is proximally normal and has mid vessel 10 to 20% luminal irregularities The circumflex artery Is a nondominant vessel and has a proximal 20 to 30% stenosis in a large first obtuse marginal artery. The true circumflex artery which runs in the AV groove is 2 mm in diameter and has a mid vessel 40% stenosis. This supplies a small amount of myocardium The right coronary artery Is a dominant vessel and has stents in the proximal and mid segment which are widely patent free of in-stent restenosis with excellent proximal distal transitioning. Distally the right coronary has a 10 to 20% stenosis The LOCK ventriculogram reveals Normal 65% The left ventricular end-diastolic pressure 10 mmHg IMPRESSION Coronary disease as described above all of which are widely patent with excellent WINSOME-3 flow Normal ejection fraction Normal left ventricular end-diastolic pressure PLAN 1. Medical management Electronically signed by : Sami Castellanos, 03/18/2020 11:03:40
== END 2020-03-18 14:02 | disposition home or self-care (01) ==
PROVIDERS: PCP Emergency Medicine; Visit Provider Internal Medicine
DX: E11.69 Type 2 diabetes mellitus with other specified complication (principal); E78.2 Mixed hyperlipidemia; I11.9 Hypertensive heart disease without heart failure; I25.118 Atherosclerotic heart disease of native coronary artery with other forms of angina pectoris; I71.4 Abdominal aortic aneurysm, without rupture; R06.02 Shortness of breath; R53.83 Other fatigue; R94.39 Abnormal result of other cardiovascular function study; Z87.891 Personal history of nicotine dependence; Z95.5 Presence of coronary angioplasty implant and graft; Z79.84 Long term (current) use of oral hypoglycemic drugs
CPT/HCPCS: 80048; 85025; 86328; 93458; 99152; C1725; C1769; J1644; J2405; Q9967

== ENCOUNTER → 2020-04-29 08:36 | Outpatient (CLI) | payer MEDICARE, OTHER, SELFPAY ==
--- NOTE | 2020-04-29 08:52 | CT_ITS ---
Procedure: CT ANGIO ABDOMEN PELVIS CLINICAL HISTORY: thoracic and abd aaa COMPARISON: CT CT ANGIO ABDOMEN PELVIS from 07/01/2019 TECHNIQUE: IV Contrast: 100ml Isovue 370 Axial images obtained with sagittal and coronal reformats. All CT scans at the facility use one or more dose reduction, viz: automated exposure control, ma/kV adjustment per patient size (including targeted exams where dose is matched to indication, i.e. head), or iterative reconstruction technique. FINDINGS: There is mild fusiform dilatation of the infrarenal abdominal aorta measuring up to 4.2 x 4 cm AP and transverse. The aneurysm begins 4 cm inferior to the left renal artery and ends at the aortic bifurcation. There is a mild amount of mural thrombus within the lower anterior left lateral aspect of the aneurysm. There has been no significant change compared to the previous exam. There is mild aneurysmal dilatation of the right common iliac at 1.7 cm and on the left also at 1.6 cm. The renal arteries, celiac, and SMA are unremarkable. The MATHEW arises from the aneurysm anteriorly but is patent. Mild atheromatous changes involve the common and external iliac arteries without significant stenosis. Mild dilatation of the splenic artery is once again noted at 11 mm. Incidental note is made of a right renal cyst. There is no evidence of retroperitoneal hemorrhage. There are small bilateral inguinal hernias containing fat. There is a small left renal cyst at 1.3 cm. IMPRESSION: No change fusiform abdominal aortic aneurysm as described above 4.2 x 4 cm Dictated by: Phillip Mitchell MD 04/30/2020 12:07 Phillip Mitchell MD in [facility] 04/30/2020 12:07
--- NOTE | 2020-04-29 08:52 | CT_ITS ---
PROCEDURE: CT ANGIO CHEST CLINCIAL INDICATION: Thoracicand abd aaa COMPARISON: CT CT ANGIO CHEST from 07/01/2019 TECHNIQUE: IV Contrast: 70ML Isovue 370 Axial images obtained with sagittal and coronal reformats. All CT scans at the facility use one or more dose reduction, viz: automated exposure control, ma/kV adjustment per patient size (including targeted exams where dose is matched to indication, i.e. head), or iterative reconstruction technique. FINDINGS: There is mild ectasia ascending aorta measuring up to 3.8 cm. No dissection. There is minimal eccentric soft plaque in the aortic arch on the left laterally. No evidence of pulmonary embolus. No mediastinal or hilar mass. Coronary artery calcifications are present. There are mild biapical fibrotic changes.. No effusions or infiltrates. No acute bony findings. IMPRESSION: Stable CT appearance of the chest. Minimal ectasia of the ascending aorta with no alisia aneurysm apparent. Please see above for detail. Dictated by: Phillip Mitchell MD 04/30/2020 12:00 Phillip Mitchell MD in [facility] 04/30/2020 12:00
[2020-04-29 08:57] LABS: Blood Urea Nitrogen 15 mg/dl (9-20); Estimated Glomerular Filt Rate 84 ml/min (>60); GFR (African American) 102 ML/MIN (>60)
== END ==
PROVIDERS: PCP Emergency Medicine; Visit Provider Urology
DX: I25.118 Atherosclerotic heart disease of native coronary artery with other forms of angina pectoris (principal); I71.4 Abdominal aortic aneurysm, without rupture; I71.2 Thoracic aortic aneurysm, without rupture
CPT/HCPCS: 36415; 71275; 74174; 82565; 84520; Q9967

== ENCOUNTER → 2020-05-10 14:08 | Outpatient (CLI) | payer MEDICARE, OTHER, SELFPAY ==
[2020-05-10 16:17] LABS: Prostate Specific Ag Screen 2.6 ng/ml (0.0-4.0)
== END ==
PROVIDERS: Visit Provider Urology
DX: Z12.5 Encounter for screening for malignant neoplasm of prostate (principal)
CPT/HCPCS: 36415; G0103

== ENCOUNTER → 2020-07-17 18:07 | Outpatient (CLI) | payer MEDICARE, OTHER, SELFPAY ==
[2020-07-17 20:32] LABS: Barbiturates Screen,Urine Negative ng/ml (<200)
[2020-07-17 20:33] LABS: Benzodiazepines Screen,Urine Negative ng/ml (<200)
[2020-07-17 20:34] LABS: Amphetamine/Metha Screen,Urine Negative ng/ml (<1000); Cannabinoid Screen,Urine Positive ng/ml (<50)
[2020-07-17 20:35] LABS: Cocaine Screen,Urine Negative ng/ml (<300); Methadone Screen,Urine Negative ng/ml (<300)
[2020-07-17 20:36] LABS: Opiate Screen,Urine Negative ng/ml (<300)
[2020-07-17 20:37] LABS: Phencyclidine Screen,Urine Negative ng/ml (<25)
== END ==
PROVIDERS: Visit Provider Emergency Medicine
DX: Z79.899 Other long term (current) drug therapy (principal)
CPT/HCPCS: 80305

== ENCOUNTER 2020-08-13 14:40 | Emergency (ER) | payer MEDICARE, OTHER, SELFPAY ==
--- NOTE | 2020-08-13 14:39 | ECG_ITS ---
APPROVED REPORT Exam: Resting ECG HR:92 bpm ECG Measurements Heart Rate 92 AXES IN 160 P 50 QRSd 90 QRS -18 QT 378 T 23 QTc 467 Conclusion Normal sinus rhythm Normal ECG Electronically signed by : Dominguez Juarez, 08/14/2020 07:38:54
[2020-08-13 14:41] VITALS: BP 119/86; PULSE 92; RESP 18; TEMP 36.8; O2SAT 96; BMI 31.9
--- NOTE | 2020-08-13 14:46 | XR_ITS ---
PROCEDURE: XR CHEST PORTABLE CLINICAL HISTORY: cough COMPARISON: CR XR CHEST PORTABLE from 01/27/2020 CR XR CHEST PORTABLE from 02/07/2020 CR XR CHEST 2V from 02/09/[address] ANGIO CHEST from 04/29/2020 FINDINGS: Lungs remain well expanded and clear without infiltrate erythema, or pleural effusion. Cardiac and mediastinal contours are within normal limits. There is degenerative change within the skeleton. IMPRESSION: No active disease or change. Dictated by: Anai Moore 08/13/2020 15:26 Anai Moore in [facility] 08/13/2020 15:26
--- NOTE | 2020-08-13 14:48 | HMH.EDGENADL ---
ED Disposition Clinical Impression: Acute abdominal pain, Diverticulitis Disposition: Home, Self-Care Condition on Discharge: Fair Instructions: DI for Diverticulitis Additional Instructions: You have been evaluated for abdominal pain and vomiting. Diagnosed with diverticulitis. Please take ciprofloxacin and Flagyl as prescribed. Take Zofran as needed for nausea. Follow a clear liquid diet. Follow-up with Dr. Dominguez in clinic. Return to the emergency department for any new or worsening symptoms. Prescriptions: Ciprofloxacin HCl [Ciprofloxacin 500mg Tab] 500 mg PO BID 10 Days #20 tab Transmission Status: Pending to [facility] metroNIDAZOLE [Metronidazole] 500 mg PO Q8 10 Days #30 tab Transmission Status: Pending to [facility] ondansetron HCL [Ondansetron 4mg tab*] 4 mg PO Q6H PRN #12 tab PRN Reason: Nausea And Vomiting Transmission Status: Pending to [facility] Referrals: Teo Dominguez MD [Staff Physician] - Time of Disposition: 17:27 - Critical Care Critical Care Time: No Attestation: On , the high probability of a clinically significant, sudden or life threatening deterioration of the following system(s) required my full and direct attention, intervention and personal management. The time I documented below is in addition to time spent performing reported procedures but includes the following listed in this critical care notation. Medical Decision Making - Medical Records Medical records reviewed: Yes: I reviewed the patient's medical records. - Luis Felipe Inquiry Pt receiving controlled substance: No Vital Signs: 08/13/20 14:41 08/13/20 16:41 Temperature 98.3 F Temperature Source Oral Pulse Rate [Right Radial] 92 H 78 Respiratory Rate 18 Blood Pressure [Right Arm] 119/86 111/67 Blood Pressure Mean [Right Arm] 97 81 Blood Pressure Source [Right Arm] Automatic Cuff Automatic Cuff Blood Pressure Position [Right Arm] Sitting Sitting 02 Sat by Pulse Oximetry 96 95 Oxygen Delivery Method Room Air Room Air - Lab Data Lab Results 08/13/20 15:05: WBC 6.9, RBC 4.83, Hgb 14.3, Hct 43.6, MCV 90.2, MCH 29.6, MCHC 32.8, RDW 13.5, Plt Count 221, MPV 7.8, Neut % (Auto) 66.9, Lymph % (Auto) 25.7, [place] % (Auto) 6.1, Eos % (Auto) 0.6, Baso % (Auto) 0.7, Neut # (Auto) 4.6, Lymph # (Auto) 1.8, [place] # (Auto) 0.4, Eos # (Auto) 0.0, Baso # (Auto) 0.1 08/13/20 15:05: Sodium 140, Potassium 3.7, Chloride 106, Carbon Dioxide 24, Anion Gap 13.7, BUN 21 H, Creatinine 1.20, Estimated Creat Clear 80, Estimated GFR 60, Est GFR ( Amer) 73, Glucose 135 H, Calcium 10.1, Troponin I < 0.01 08/13/20 15:05: Lipase 33 Result diagrams: 08/13/20 15:05 08/13/20 15:05 Orders (Tests/Meds): ED MEDICATIONS Discontinued Medications Generic Name Dose Route Start Last Admin Trade Name Freq PRN Reason Stop Dose Admin Sodium Chloride 1,000 mls @ 999 mls/hr 08/13/20 15:00 08/13/20 16:20 Sod Chlor 0.9% 1000ml Bag IV 08/13/20 16:00 999 mls/hr .Q1H1M EZ Administration Iopamidol 75 ml 08/13/20 16:02 08/13/20 16:03 Iopamidol-370 (76%);100ml Bottle IV 08/13/20 16:03 75 ml ONCE ONE Administration Ondansetron HCl 4 mg 08/13/20 14:52 08/13/20 16:20 Ondansetron 4mg/2ml Vial IV 08/13/20 14:53 4 mg ONCE ONE Administration Sodium Chloride 10 ml 08/13/20 16:02 08/13/20 16:03 Sodium Chloride 0.9% 10ml Syr (Rad Only) IV 08/13/20 16:03 10 ml ONCE ONE Administration ORDERS Category Date Time Status Covid-19 Nasal PCR ([facility]) Routine Lab 08/13/20 15:05 Received Troponin I Q3H Lab 08/13/20 18:00 Ordered Troponin I Q3H Lab 08/13/20 21:00 Ordered EKG Request [ECG Request by /Thomas] Stat Y 08/13/20 14:47 Ordered - CT Data CT Scan: Abdomen Time Received: 17:[address] Reviewed: Yes: I have reviewed the patient's CT results, I have viewed the radiologist's interpretation Findings Narrative: 1. Questionable slight increase in size of abdominal triple
--- NOTE | 2020-08-13 14:53 | CT_ITS ---
PROCEDURE: CT ABDOMEN PELVIS W CON CLINICAL INDICATION: abdominal pain, vomiting Vomiting x1 month, diarrhea, mid abdominal pain, epigastric extending from the epigastric area to the umbilical level. COMPARISON: CT CT ANGIO ABDOMEN PELVIS from 04/29/2020 TECHNIQUE: IV Contrast: 75ML Isovue 370 Oral Contrast None Axial images obtained with sagittal and coronal reformats. All CT scans at the facility use one or more dose reduction, viz: automated exposure control, ma/kV adjustment per patient size (including targeted exams where dose is matched to indication, i.e. head), or iterative reconstruction technique. FINDINGS: LOWER THORAX: No acute finding ABDOMEN & PELVIS: There is no intraperitoneal free air. There is no intraperitoneal free fluid. There are small bilateral fat containing inguinal hernias. There is no CT evidence of incarceration. Adrenal glands normal. There has been no interval change in left renal cystic structure and multiple right renal cystic structures since the prior CT. The remaining solid abdominal organs have an unremarkable appearance. There is a focal area of subtle low density in the peripheral aspect of the prostate gland. CT is not used for evaluation of the prostate gland and is neither sensitive nor specific for prostate gland findings however PSA would be reassuring. Pelvic organs are otherwise unremarkable. There is short segment thickening of the colon at the splenic flexure. There is normal caliber of the colon at this area on 04/29/2020, at 3 months prior. The narrowing is greater at distance than typical for normal peristalsis and lies immediately adjacent to several diverticuli. There is no extraluminal CT evidence of extraluminal diverticulitis, however intramural acute diverticulitis cannot be excluded. There are a few scattered diverticuli throughout the entire colon. There are surgical ines in adjacent to the cecum suggesting prior appendectomy. There is persistent fluid collection in the duodenal bulb on prior and current CT of uncertain significance. There is no adjacent fluid in the stomach or remainder of the duodenum on either the prior current study. There is no abdominal or pelvic adenopathy. There is redemonstration of a fusiform infrarenal abdominal aortic aneurysm with chronic mural thrombus oblique coronal and sagittal measurements were 4.2 x 4.0 centimeters on the prior study. Minimal increase in size is measuring 4.1 x 4.3 centimeters on current study. This could be secondary to slice selection in projection of the imaging. Three month follow-up CTA of the abdomen is recommended for repeat evaluation. There is extensive atherosclerosis in the abdominal aorta which extends into the iliac arteries. See CT dated 04/29/2024 further vascular findings. Subtle subcortical sclerotic serpiginous line in the right femoral head is noted. Right hip MRI is recommended to exclude avascular necrosis of the right hip. IMPRESSION: 1. Questionable slight increase in size of abdominal triple a. Three-month follow-up abdomen pelvis CT a recommended. 2. Right hip MRI recommended to exclude avascular necrosis of the right hip. 3. Focal wall thickening at the splenic flexure adjacent to several diverticuli may explain patient's symptoms, correlate clinically. 4. Persistent fluid in the duodenal bulb of uncertain clinical significance. Dictated by: Anai Moore 08/13/2020 16:35 Anai Moore in [place] 08/13/2020 16:35
[2020-08-13 15:15] LABS: Basophils # 0.1 K/mm3 (0-0.2); Basophils % 0.7 % (0.1-2.0); Eosinophils % 0.6 % (0.1-12.0); Hematocrit 43.6 % (42.0-52.0); Hemoglobin 14.3 g/dL (14.1-18.0); Lymphocytes # 1.8 K/mm3 (0.7-4.5); Lymphocytes % 25.7 % (10-50); Mean Corpuscular HGB Conc 32.8 g/dL (31.8-35.4); Mean Corpuscular Hemoglobin 29.6 pg (27.0-31.2); Mean Corpuscular Volume 90.2 fl (80-94); Mean Platelet Volume 7.8 fl (7.4-10.4); Monocytes # 0.4 K/mm3 (0.1-1.0); Monocytes % 6.1 % (1.7-9.3); Neutrophils # 4.6 K/mm3 (1.8-7.8); Neutrophils % 66.9 % (37.0-80.0); Platelet Count 221 K/mm3 (142-424); Red Blood Count 4.83 M/mm3 (4.60-6.20); Red Cell Distribution Width 13.5 % (11.5-17.5); White Blood Count 6.9 K/mm3 (4.8-10.8)
[2020-08-13 15:20] LABS: Chloride 106 mmol/L (98-107); Potassium 3.7 mmoL/L (3.5-5.1); Sodium 140 mmol/L (136-145)
[2020-08-13 15:23] LABS: Anion Gap 13.7 mEq/L (5-15); Blood Urea Nitrogen 21 mg/dl (9-20); Calcium 10.1 mg/dl (8.4-10.2); Carbon Dioxide 24 mmol/L (22.0-30.0); Creatinine Clearance Estimated 80 mL/min (50-200); Estimated Glomerular Filt Rate 60 ml/min (>60); GFR (African American) 73 ML/MIN (>60); Glucose 135 mg/dl (74-100); Lipase 33 U/L (23-300)
[2020-08-13 15:36] LABS: Troponin I < 0.01 ng/ml (0.00-0.034)
--- NOTE | 2020-08-13 15:48 | PC.NURSE ---
Pt to rad.
[2020-08-13 16:41] VITALS: BP 111/67; PULSE 78; O2SAT 95
[2020-08-13 17:39] VITALS: BP 125/79; PULSE 72; O2SAT 96
[2020-08-13 18:34] LABS: Troponin I < 0.01 ng/ml (0.00-0.034)
[2020-08-13 19:13] VITALS: BP 143/89; PULSE 75; RESP 18; TEMP 36.7; O2SAT 95
== END 2020-08-13 19:16 | disposition home or self-care (01) ==
PROVIDERS: Emergency Provider Emergency Medicine
DX: K57.92 Diverticulitis of intestine, part unspecified, without perforation or abscess without bleeding (principal); E11.65 Type 2 diabetes mellitus with hyperglycemia; I10 Essential (primary) hypertension; E78.5 Hyperlipidemia, unspecified; E03.9 Hypothyroidism, unspecified; I25.10 Atherosclerotic heart disease of native coronary artery without angina pectoris; J44.9 Chronic obstructive pulmonary disease, unspecified; Z20.822 Contact with and (suspected) exposure to COVID-19; Z87.891 Personal history of nicotine dependence; Z79.899 Other long term (current) drug therapy; Z88.0 Allergy status to penicillin; Z88.2 Allergy status to sulfonamides; Z91.040 Latex allergy status
CPT/HCPCS: 36415; 71045; 74177; 80048; 83690; 84484; 85025; 93005; 96365; 96375; 99283; J2405; Q9967; U0003

== ENCOUNTER → 2020-08-19 14:31 | Outpatient (CLI) | payer MEDICARE, OTHER, SELFPAY ==
[2020-08-19 15:22] LABS: Basophils # 0.1 K/mm3 (0-0.2); Basophils % 0.8 % (0.1-2.0); Eosinophils # 0.1 K/mm3 (0.0-0.4); Eosinophils % 1.1 % (0.1-12.0); Hematocrit 41.5 % (42.0-52.0); Hemoglobin 13.4 g/dL (14.1-18.0); Lymphocytes # 1.6 K/mm3 (0.7-4.5); Lymphocytes % 26.8 % (10-50); Mean Corpuscular HGB Conc 32.3 g/dL (31.8-35.4); Mean Corpuscular Hemoglobin 29.7 pg (27.0-31.2); Mean Corpuscular Volume 92.2 fl (80-94); Mean Platelet Volume 7.8 fl (7.4-10.4); Monocytes # 0.4 K/mm3 (0.1-1.0); Monocytes % 6.3 % (1.7-9.3); Neutrophils # 3.8 K/mm3 (1.8-7.8); Platelet Count 202 K/mm3 (142-424); Red Cell Distribution Width 13.4 % (11.5-17.5); White Blood Count 5.8 K/mm3 (4.8-10.8)
[2020-08-19 17:04] LABS: Chloride 107 mmol/L (98-107); Potassium 3.5 mmoL/L (3.5-5.1); Sodium 141 mmol/L (136-145)
[2020-08-19 17:05] LABS: Hemoglobin A1C 5.3 % (4.0-6.0)
[2020-08-19 17:06] LABS: Blood Urea Nitrogen 12 mg/dl (9-20); Estimated Glomerular Filt Rate 75 ml/min (>60); GFR (African American) 90 ML/MIN (>60)
[2020-08-19 17:07] LABS: Alanine Aminotransferase 47 U/L (12-78); Albumin Level 4.3 g/dl (3.5-5.0); Albumin/Globulin Ratio 1.6 (1.1-1.8); Alkaline Phosphatase 74 U/L (38-126); Anion Gap 10.5 mEq/L (5-15); Aspartate Amino Transferase 47 U/L (17-59); Bilirubin,Total 0.6 mg/dl (0.2-1.3); Carbon Dioxide 27 mmol/L (22.0-30.0); Globulin 2.7 g/dL (1.3-3.2)
[2020-08-19 17:08] LABS: Calcium 9.7 mg/dl (8.4-10.2); Glucose 117 mg/dl (74-100)
[2020-08-19 23:30] LABS: Chol/HDL Ratio 5.9 (1-3.5); Cholesterol 218 mg/dl (140-200); HDL Cholesterol 37 mg/dl (40-60); Triglycerides 210 mg/dl (30-150); VLDL Cholesterol 42 mg/dL (0-40)
[2020-08-19 23:41] LABS: Direct LDL Cholesterol 144.48 mg/dL (100-129)
== END ==
PROVIDERS: PCP Emergency Medicine; Visit Provider Physician Assistant
DX: Z79.899 Other long term (current) drug therapy (principal); E78.2 Mixed hyperlipidemia; R19.7 Diarrhea, unspecified; E11.9 Type 2 diabetes mellitus without complications; Z79.84 Long term (current) use of oral hypoglycemic drugs
CPT/HCPCS: 80053; 80061; 83036; 85025

== ENCOUNTER → 2020-09-09 09:56 | Outpatient (POV) | payer MEDICARE, OTHER, SELFPAY | PROVIDERS: Visit Provider Nurse Practitioner Family | DX: Z00.00 Encounter for general adult medical examination without abnormal findings (principal) ==

== ENCOUNTER 2020-10-12 12:46 | Emergency (ER) | payer MEDICARE, OTHER, SELFPAY ==
[2020-10-12 12:46] VITALS: BP 140/96; PULSE 105; RESP 16; TEMP 37.1; O2SAT 98; BMI 31.9
--- NOTE | 2020-10-12 13:07 | CT_ITS ---
PROCEDURE: CT ABDOMEN PELVIS W CON CLINICAL INDICATION: abdominal pain Abdominal pain with vomiting COMPARISON: CT CT ABDOMEN PELVIS W CON from 08/13/2020 TECHNIQUE: IV Contrast: 75ML Isovue 370 Oral Contrast None Axial images obtained with sagittal and coronal reformats. All CT scans at the facility use one or more dose reduction, viz: automated exposure control, ma/kV adjustment per patient size (including targeted exams where dose is matched to indication, i.e. head), or iterative reconstruction technique. FINDINGS: LOWER THORAX: No acute finding ABDOMEN & PELVIS: There are few punctate foci decreased attenuation within the liver nonspecific too small to categorize unchanged. No radiopaque gallstone. The spleen, adrenal glands, pancreas, have an unremarkable appearance. Small bilateral renal cysts. No renal calculi. There is an infrarenal abdominal aortic aneurysm 4.4 by 3.8 cm unchanged with moderate amount mural thrombus inferiorly and anteriorly. There is ectasia of the common iliac arteries measuring up to 1.7 and 1.6 cm right and left respectively unchanged. No evidence retroperitoneal hematoma. No intestinal obstruction or free air. Prior appendectomy. There are small bilateral inguinal hernias containing fat. There is mild thickening versus nondistention of the sigmoid colon in the left lower quadrant. No evidence of diverticulitis. Mildly enlarged prostate. No acute bony findings. IMPRESSION: 1. No change infrarenal abdominal aortic aneurysm 4.4 x 3.8 cm. 2. Mild thickening of the sigmoid colon nonspecific and could be due to nondistention or mild colitis. 3. Small bilateral inguinal hernias containing fat Dictated by: Phillip Mitchell MD 10/13/2020 08:49 Phillip Mitchell MD in [place] 10/13/2020 08:49
--- NOTE | 2020-10-12 13:36 | HMH.EDGENADL ---
ED Disposition Clinical Impression: Left sided abdominal pain Disposition: Home, Self-Care Condition on Discharge: Fair Instructions: DI for Acute Abdominal Pain Additional Instructions: You have been evaluated for left-sided abdominal pain, unclear cause. Could be due to bowel issues, distress. Please take MiraLAX 3 capfuls on day 1 and 1 Every day. Take doc senna. Follow bland diet. Follow-up with your primary doctor in 1 to 2 days. Follow-up with GI when available. Return to the emergency department for any new or worsening symptoms, vomiting, uncontrolled pain, other concerns. Prescriptions: polyethylene glycoL 3350 [Miralax 17gm Packet] 17 gm PO DAILYP PRN #30 packet PRN Reason: Constipation Transmission Status: Received by [facility] Sennosides/Docusate Sodium [Senna-Docusate Sodium Tablet] 1 each PO DAILY PRN #12 tab PRN Reason: Constipation Transmission Status: Received by [facility] Referrals: Teo Dominguez MD [Primary Care Provider] - Time of Disposition: 16:41 - Critical Care Critical Care Time: No Attestation: On 10/12/20, the high probability of a clinically significant, sudden or life threatening deterioration of the following system(s) required my full and direct attention, intervention and personal management. The time I documented below is in addition to time spent performing reported procedures but includes the following listed in this critical care notation. Medical Decision Making - Medical Records Medical records reviewed: Yes: I reviewed the patient's medical records. - Luis Felipe Inquiry Pt receiving controlled substance: No Vital Signs: 10/12/20 12:46 10/12/20 15:00 Temperature 98.8 F Temperature Source Oral Pulse Rate 67 Pulse Rate [Radial] 105 H Respiratory Rate 16 Blood Pressure 137/93 H Blood Pressure [Right Radial Artery] 140/96 H Blood Pressure Mean [Right Radial Artery] 110 Blood Pressure Position [Right Radial Artery] Sitting 02 Sat by Pulse Oximetry 98 92 L Oxygen Delivery Method Room Air - Lab Data Lab Results 10/12/20 13:35: Urine Color Yellow, Urine Appearance Clear, Urine pH 6.0, Ur Specific [place] 1.015, Urine Protein Negative, Urine Glucose (UA) Negative, Urine Ketones Negative, Urine Blood Trace-l, Urine Nitrate Negative, Urine Bilirubin Negative, Urine Urobilinogen 0.2, Ur Leukocyte Esterase Negative, Urine RBC 3-5, Urine WBC Occasional, Ur Squamous Epith Cells Occasional, Urine Bacteria None 10/12/20 13:35: WBC 6.0, RBC 5.06, Hgb 15.1, Hct 44.6, MCV 88.2, MCH 29.8, MCHC 33.8, RDW 13.8, Plt Count 227, MPV 7.6, Neut % (Auto) 60.7, Lymph % (Auto) 30.9, [place] % (Auto) 6.2, Eos % (Auto) 1.2, Baso % (Auto) 0.9, Neut # (Auto) 3.6, Lymph # (Auto) 1.8, [place] # (Auto) 0.4, Eos # (Auto) 0.1, Baso # (Auto) 0.1 10/12/20 13:35: Sodium 140, Potassium 3.9, Chloride 103, Carbon Dioxide 27, Anion Gap 13.9, BUN 14, Creatinine 0.90, Estimated Creat Clear 97, Estimated GFR 84, Est GFR ( Amer) 102, Glucose 122 H, Calcium 10.2, Total Bilirubin 0.9, AST 27, ALT 27, Alkaline Phosphatase 80, Total Protein 7.8, Albumin 4.8, Globulin 3.0, Albumin/Globulin Ratio 1.6, Lipase 25 10/12/20 14:10: Lactate 0.9 Result diagrams: 10/12/20 13:35 10/12/20 13:35 Orders (Tests/Meds): ED MEDICATIONS Discontinued Medications Generic Name Dose Route Start Last Admin Trade Name Freq PRN Reason Stop Dose Admin Diatrizoate Meglum/Diatrizoate Sod 15 ml 10/12/20 13:07 10/12/20 13:31 Diatrizoate Michelle 66% & Diatrizoate Na 10% 30ml Udc PO 10/12/20 13:08 15 ml ONCE ONE Administration Sodium Chloride 1,000 mls @ 999 mls/hr 10/12/20 14:00 10/12/20 14:30 Sod Chlor 0.9% 1000ml Bag IV 10/12/20 15:00 999 mls/hr .Q1H1M EZ Administration Iopamidol 75 ml 10/12/20 15:48 10/12/20 15:51 Iopamidol-370 (76%);100ml Bottle IV 10/12/20 15:49 75 ml ONCE ONE Administration Ketorolac Tromethamine 15 mg 10/12/20 14:26 10/12/20 14:30 Ketoro
--- NOTE | 2020-10-12 13:44 | PC.NURSE ---
PT FINISHED GASTROGRAFIN
[2020-10-12 13:45] LABS: Microscopic, Urine URINE MICROSCOPIC (MICROSCOPIC)
[2020-10-12 13:47] LABS: Appearance,Urine CLEAR (Clear); Basophils # 0.1 K/mm3 (0-0.2); Basophils % 0.9 % (0.1-2.0); Bilirubin,Urine Negative (Negative); Blood, Urine TRACE-L (Negative); Color,Urine YELLOW (Yellow); Eosinophils # 0.1 K/mm3 (0.0-0.4); Eosinophils % 1.2 % (0.1-12.0); Glucose,Urine (UA) Negative (Negative); Hematocrit 44.6 % (42.0-52.0); Hemoglobin 15.1 g/dL (14.1-18.0); Ketones,Urine Negative (Negative); Leukocyte Esterase,Urine Negative (Negative); Lymphocytes # 1.8 K/mm3 (0.7-4.5); Lymphocytes % 30.9 % (10-50); Mean Corpuscular HGB Conc 33.8 g/dL (31.8-35.4); Mean Corpuscular Hemoglobin 29.8 pg (27.0-31.2); Mean Corpuscular Volume 88.2 fl (80-94); Mean Platelet Volume 7.6 fl (7.4-10.4); Monocytes # 0.4 K/mm3 (0.1-1.0); Monocytes % 6.2 % (1.7-9.3); Neutrophils # 3.6 K/mm3 (1.8-7.8); Neutrophils % 60.7 % (37.0-80.0); Nitrate,Urine Negative (Negative); Platelet Count 227 K/mm3 (142-424); Protein,Urine Negative (Negative); Red Blood Count 5.06 M/mm3 (4.60-6.20); Red Cell Distribution Width 13.8 % (11.5-17.5); Specific Gravity, Urine 1.015 (1.005-1.030); Urobilinogen,Urine 0.2 EU/dl (0.2)
[2020-10-12 13:52] LABS: Chloride 103 mmol/L (98-107); Potassium 3.9 mmoL/L (3.5-5.1); Sodium 140 mmol/L (136-145)
[2020-10-12 13:54] LABS: Blood Urea Nitrogen 14 mg/dl (9-20); Creatinine Clearance Estimated 97 mL/min (50-200); Estimated Glomerular Filt Rate 84 ml/min (>60); GFR (African American) 102 ML/MIN (>60)
[2020-10-12 13:55] LABS: Alanine Aminotransferase 27 U/L (12-78); Albumin Level 4.8 g/dl (3.5-5.0); Albumin/Globulin Ratio 1.6 (1.1-1.8); Alkaline Phosphatase 80 U/L (38-126); Anion Gap 13.9 mEq/L (5-15); Aspartate Amino Transferase 27 U/L (17-59); Bilirubin,Total 0.9 mg/dl (0.2-1.3); Calcium 10.2 mg/dl (8.4-10.2); Carbon Dioxide 27 mmol/L (22.0-30.0); Glucose 122 mg/dl (74-100); Lipase 25 U/L (23-300); Total Protein,Serum 7.8 g/dl (6.3-8.2)
[2020-10-12 13:57] LABS: WBC,Urine Occasional #/hpf (0-3)
[2020-10-12 13:58] LABS: Squamous Epithelial Cell,Urine Occasional #/hpf (0-5)
[2020-10-12 14:28] LABS: Lactic Acid 0.9 mmol/L (0.7-2.1)
[2020-10-12 15:00] VITALS: BP 137/93; PULSE 67; O2SAT 92
--- NOTE | 2020-10-12 16:46 | XR_ITS ---
PROCEDURE: XR CHEST 2V CLINICAL HISTORY: cough COMPARISON: CR XR CHEST PORTABLE from 02/07/2020 CR XR CHEST 2V from 02/09/[address] ANGIO CHEST from 04/29/2020 CR XR CHEST PORTABLE from 08/13/2020 FINDINGS: The cardiomediastinal silhouette and pulmonary vascularity are within normal limits. The lungs are clear without infiltrates, suspicious nodules, or pleural effusions. No acute bony abnormalities. IMPRESSION: No acute findings. Dictated by: Phillip Mitchell MD 10/12/2020 19:32 Phillip Mitchell MD in [place] 10/12/2020 19:33
[2020-10-12 17:43] VITALS: BP 152/74; PULSE 78; RESP 16; TEMP 36.6; O2SAT 98
== END 2020-10-12 17:44 | disposition home or self-care (01) ==
PROVIDERS: Emergency Provider Emergency Medicine; PCP Emergency Medicine
DX: R10.32 Left lower quadrant pain (principal); K59.00 Constipation, unspecified; I71.4 Abdominal aortic aneurysm, without rupture; I25.10 Atherosclerotic heart disease of native coronary artery without angina pectoris; E11.9 Type 2 diabetes mellitus without complications; E03.9 Hypothyroidism, unspecified; E78.5 Hyperlipidemia, unspecified; I10 Essential (primary) hypertension; Z88.0 Allergy status to penicillin; Z88.2 Allergy status to sulfonamides; Z91.040 Latex allergy status; Z87.891 Personal history of nicotine dependence; Z79.899 Other long term (current) drug therapy
CPT/HCPCS: 71046; 74177; 80053; 81001; 83605; 83690; 85025; 96365; 96375; 99283; J2405; Q9967

== ENCOUNTER 2020-10-19 09:51 | Emergency (ER) | payer MEDICARE, OTHER, SELFPAY ==
--- NOTE | 2020-10-19 09:47 | ECG_ITS ---
APPROVED REPORT Exam: Resting ECG HR:73 bpm ECG Measurements Heart Rate 73 AXES SC 176 P 49 QRSd 94 QRS -30 QT 408 T 34 QTc 449 Conclusion Normal sinus rhythm Left axis deviation Abnormal ECG Electronically signed by : Dominguez Juarez, 10/19/2020 15:47:14
[2020-10-19 09:51] VITALS: BP 151/104; PULSE 74; RESP 20; TEMP 36.7; O2SAT 98; BMI 31.9
--- NOTE | 2020-10-19 09:53 | XR_ITS ---
PROCEDURE: XR CHEST PORTABLE CLINICAL HISTORY: cp Chest pain COMPARISON: CR XR CHEST 2V from 02/09/[address] ANGIO CHEST from 04/29/2020 CR XR CHEST PORTABLE from 08/13/2020 CR XR CHEST 2V from 10/12/2020 FINDINGS: The cardiomediastinal silhouette and pulmonary vascularity are within normal limits. The lungs are clear without infiltrates, suspicious nodules, or pleural effusions. No acute bony abnormalities. IMPRESSION: No acute findings. Dictated by: Phillip Mitcehll MD 10/19/2020 10:16 Phillip Mitchell MD in [place] 10/19/2020 10:16
--- NOTE | 2020-10-19 09:58 | HMH.EDGENADL ---
ED Disposition Clinical Impression: Atypical chest pain Diarrhea Qualifiers: Diarrhea type: unspecified type Qualified Code(s): R19.7 - Diarrhea, unspecified Headache Qualifiers: Headache type: unspecified Headache chronicity pattern: unspecified pattern Intractability: not intractable Qualified Code(s): R51.9 - Headache, unspecified Disposition: Home, Self-Care Condition on Discharge: Good Referrals: Teo Dominguez MD [Primary Care Provider] - 3 days Time of Disposition: 12:25 - Critical Care Critical Care Time: No Attestation: On , the high probability of a clinically significant, sudden or life threatening deterioration of the following system(s) required my full and direct attention, intervention and personal management. The time I documented below is in addition to time spent performing reported procedures but includes the following listed in this critical care notation. Medical Decision Making - Medical Records Medical records reviewed: Yes: I reviewed the patient's medical records. - Luis Felipe Inquiry Pt receiving controlled substance: No Vital Signs: 10/19/20 09:51 10/19/20 10:30 Temperature 98.0 F Temperature Source Oral Pulse Rate 62 Pulse Rate [Right Radial] 74 Respiratory Rate 20 20 Blood Pressure 126/81 Blood Pressure [Right Arm] 151/104 H Blood Pressure Mean 91 Blood Pressure Mean [Right Arm] 119 Blood Pressure Source [Right Arm] Automatic Cuff Blood Pressure Position [Right Arm] Sitting 02 Sat by Pulse Oximetry 98 96 Oxygen Delivery Method Room Air Room Air - Lab Data Lab results reviewed: Yes: I reviewed the patient's lab results. Lab Results 10/19/20 10:04: WBC 6.3, RBC 5.12, Hgb 15.0, Hct 45.2, MCV 88.3, MCH 29.4, MCHC 33.3, RDW 13.5, Plt Count 241, MPV 8.1, Neut % (Auto) 58.2, Lymph % (Auto) 34.0, [place] % (Auto) 6.3, Eos % (Auto) 0.7, Baso % (Auto) 0.8, Neut # (Auto) 3.7, Lymph # (Auto) 2.1, [place] # (Auto) 0.4, Eos # (Auto) 0.1, Baso # (Auto) 0.1 10/19/20 10:04: Troponin I < 0.01 10/19/20 10:04: Sodium 140, Potassium 3.9, Chloride 107, Carbon Dioxide 24, Anion Gap 12.9, BUN 14, Creatinine 0.90, Estimated Creat Clear 97, Estimated GFR 84, Est GFR ( Amer) 102, Glucose 120 H, Calcium 9.8 Result diagrams: 10/19/20 10:04 10/19/20 10:04 Orders (Tests/Meds): ED MEDICATIONS Discontinued Medications Generic Name Dose Route Start Last Admin Trade Name Frefransico PRN Reason Stop Dose Admin Iopamidol 75 ml 10/19/20 11:30 10/19/20 11:32 Iopamidol-370 (76%);100ml Bottle IV 10/19/20 11:31 75 ml ONCE ONE Administration Ketorolac Tromethamine 15 mg 10/19/20 11:07 10/19/20 11:41 Ketorolac 30mg/Ml Vial IV 10/19/20 11:08 15 mg ONCE ONE Administration Sodium Chloride 10 ml 10/19/20 11:30 10/19/20 11:32 Sodium Chloride 0.9% 10ml Syr (Rad Only) IV 10/19/20 11:31 10 ml ONCE ONE Administration ORDERS Category Date Time Status Troponin I Q3H Lab 10/19/20 13:00 Ordered Troponin I Q3H Lab 10/19/20 16:00 Ordered - Radiology Data #1 Image(s): Chest Image Reviewed: Yes I reviewed the patient's radiology results, Yes I reviewed the patient's radiology image, Yes I have reviewed radiologist's interpretation Preliminary Findings: Normal/NAD - CT Data CT Scan: Abdomen, Pelvis Time Received: 12:[address] Reviewed: Yes: I have viewed the radiologist's interpretation Preliminary Findings: Normal/NAD - ECG Data Tracing #1 73 bpm, normal sinus rhythm, no ST elevation or depression, T wave inversion aVR. Normal intervals. ECG initial impression date: 10/19/20 ECG initial impression time: 09:50 Medical Decision Narrative: 65yo M evaluated multiple complaints. Most of them seem chronic in nature. Cardiac work-up was initiated on arrival. EKG is unremarkable as reviewed above. Chest x-ray benign. Laboratory studies unremarkable. Patient continues to complain of abdominal pain and liquid stools. He recently underwent CT of
--- NOTE | 2020-10-19 10:00 | PC.NURSE ---
asked ER MD if okay to get aspirin r/t chest pain protocol- pt is also reporting dark stools. ER MD states will assess pt and place orders as needed
[2020-10-19 10:22] LABS: Basophils # 0.1 K/mm3 (0-0.2); Basophils % 0.8 % (0.1-2.0); Eosinophils # 0.1 K/mm3 (0.0-0.4); Eosinophils % 0.7 % (0.1-12.0); Hematocrit 45.2 % (42.0-52.0); Lymphocytes # 2.1 K/mm3 (0.7-4.5); Mean Corpuscular HGB Conc 33.3 g/dL (31.8-35.4); Mean Corpuscular Hemoglobin 29.4 pg (27.0-31.2); Mean Corpuscular Volume 88.3 fl (80-94); Mean Platelet Volume 8.1 fl (7.4-10.4); Monocytes # 0.4 K/mm3 (0.1-1.0); Monocytes % 6.3 % (1.7-9.3); Neutrophils # 3.7 K/mm3 (1.8-7.8); Neutrophils % 58.2 % (37.0-80.0); Platelet Count 241 K/mm3 (142-424); Red Blood Count 5.12 M/mm3 (4.60-6.20); Red Cell Distribution Width 13.5 % (11.5-17.5); White Blood Count 6.3 K/mm3 (4.8-10.8)
[2020-10-19 10:27] LABS: Chloride 107 mmol/L (98-107); Potassium 3.9 mmoL/L (3.5-5.1); Sodium 140 mmol/L (136-145)
[2020-10-19 10:30] VITALS: BP 126/81; PULSE 62; RESP 20; O2SAT 96
[2020-10-19 10:30] LABS: Anion Gap 12.9 mEq/L (5-15); Blood Urea Nitrogen 14 mg/dl (9-20); Carbon Dioxide 24 mmol/L (22.0-30.0); Creatinine Clearance Estimated 97 mL/min (50-200); Estimated Glomerular Filt Rate 84 ml/min (>60); GFR (African American) 102 ML/MIN (>60)
[2020-10-19 10:31] LABS: Calcium 9.8 mg/dl (8.4-10.2); Glucose 120 mg/dl (74-100)
[2020-10-19 10:44] LABS: Troponin I < 0.01 ng/ml (0.00-0.034)
--- NOTE | 2020-10-19 11:07 | CT_ITS ---
PROCEDURE: CT ABDOMEN PELVIS W CON CLINICAL INDICATION: LUQ pain Left upper quadrant pain and right lower quadrant pain COMPARISON: CT CT ABDOMEN PELVIS W CON from 10/12/2020 TECHNIQUE: IV Contrast: 75ML Isovue 370 Oral Contrast None Axial images obtained with sagittal and coronal reformats. All CT scans at the facility use one or more dose reduction, viz: automated exposure control, ma/kV adjustment per patient size (including targeted exams where dose is matched to indication, i.e. head), or iterative reconstruction technique. FINDINGS: LOWER THORAX: No acute finding ABDOMEN & PELVIS: The spleen, adrenal glands, pancreas, have an unremarkable appearance. Small hypodensity is present in the right hepatic lobe inferiorly and posteriorly and in the left hepatic lobe superiorly. These do not appear significantly changed. There is a 3 cm right renal cyst. An additional 2 cm right renal cyst noted. No renal or ureteral calculi. No hydronephrosis. There is a fusiform infrarenal abdominal aortic aneurysm measuring 4.4 cm in AP dimension and 4.3 cm transverse. This does not appear significantly changed. There is moderate amount mural thrombus within the aneurysm anteriorly. No evidence of retroperitoneal hemorrhage. Prior appendectomy. The prostate is prominent at 5 cm. No intestinal obstruction or free air. No acute bony findings. There is degenerative disc disease at T10-T11 which has developed in the interval. There is minimal sclerosis along the right humeral head in the subchondral region not significantly changed. IMPRESSION: Overall no significant change with no acute finding. No change fusiform 4.4 cm infrarenal abdominal aortic aneurysm. Dictated by: Phillip Mitchell MD 10/19/2020 11:57 Phillip Mitchell MD in [place] 10/19/2020 11:57
[2020-10-19 11:32] VITALS: BP 176/88; PULSE 55; RESP 16; O2SAT 92
[2020-10-19 12:27] VITALS: BP 131/89; PULSE 56; RESP 16; O2SAT 94
[2020-10-19 12:40] VITALS: BP 131/89; PULSE 56; RESP 18; TEMP 37.1; O2SAT 99
== END 2020-10-19 12:44 | disposition home or self-care (01) ==
PROVIDERS: Emergency Provider Family Medicine; PCP Emergency Medicine
DX: R07.89 Other chest pain (principal); I25.10 Atherosclerotic heart disease of native coronary artery without angina pectoris; E11.9 Type 2 diabetes mellitus without complications; E78.5 Hyperlipidemia, unspecified; I10 Essential (primary) hypertension; Z87.891 Personal history of nicotine dependence
CPT/HCPCS: 71045; 74177; 80048; 84484; 85025; 93005; 96365; 96375; 99283; Q9967

== ENCOUNTER → 2020-10-23 22:00 | Outpatient (CLI) | payer MEDICARE, OTHER, SELFPAY ==
[2020-10-24 09:14] LABS: Adenovirus F 40/41, stool Not Detected (NotDetected); Astrovirus Not Detected (NotDetected); Campylobacter Not Detected (NotDetected); Clostridium Difficile A/B, PCR Not Detected (NotDetected); Cryptosporidium Not Detected (NotDetected); Cyclospora Cayetanesis Not Detected (NotDetected); Entamoeba histolytica Not Detected (NotDetected); Enteroaggregative E coli Not Detected (NotDetected); Enteropathogenic E coli Not Detected (NotDetected); Enterotoxigenic E coli Not Detected (NotDetected); Giardia lamblia Not Detected (NotDetected); Norovirus Not Detected (NotDetected); Plesimonas Shigalloides, PCR Not Detected (NotDetected); Rotavirus A Not Detected (NotDetected); Salmonella, PCR Not Detected (NotDetected); Sapovirus Not Detected (NotDetected); Shiga-like toxin E coli Not Detected (NotDetected); Shigella Enterovasive E coli Not Detected (NotDetected); Vibrio Cholerae Not Detected (NotDetected); Vibrio, PCR Not Detected (NotDetected); Yersinia Entercolitica, PCR Not Detected (NotDetected)
== END ==
PROVIDERS: Visit Provider Nurse Practitioner Family
DX: R19.7 Diarrhea, unspecified (principal)
CPT/HCPCS: 87507

== ENCOUNTER → 2020-10-25 08:15 | Outpatient (CLI) | payer MEDICARE, OTHER, SELFPAY ==
[2020-10-28 23:41] LABS: H. pylori Breath Test Negative (Negative)
== END ==
PROVIDERS: Visit Provider Nurse Practitioner Family
DX: R19.7 Diarrhea, unspecified (principal)
CPT/HCPCS: 83013

== ENCOUNTER 2020-10-29 14:25 | Emergency (ER) | payer MEDICARE, OTHER, SELFPAY ==
[2020-10-29] VITALS (9 sets, daily range): BP systolic 118–134; BP diastolic 73–95; PULSE 48–69; RESP 16–19; TEMP 36.8; O2SAT 92–96; BMI 31.9
--- NOTE | 2020-10-29 14:19 | ECG_ITS ---
APPROVED REPORT Exam: Resting ECG HR:68 bpm ECG Measurements Heart Rate 68 AXES NV 166 P 43 QRSd 94 QRS -32 QT 406 T 29 QTc 431 Conclusion Normal sinus rhythm Left axis deviation Minimal voltage criteria for LVH, may be normal variant Abnormal ECG Electronically signed by : Dominguez Juarez, 10/30/2020 16:57:39
--- NOTE | 2020-10-29 14:27 | CT_ITS ---
PROCEDURE: CT HEAD/BRAIN WO CON CLINICAL INDICATION: headache, vision changes COMPARISON: MR [facility] MRI-BRAIN W/WO from 01/16/[address] HEAD/BRAIN WO CON from 01/19/2020 TECHNIQUE: Axial images obtained. All CT scans at the facility use one or more dose reduction, viz: automated exposure control, ma/kV adjustment per patient size (including targeted exams where dose is matched to indication, i.e. head), or iterative reconstruction technique. FINDINGS: Prior right occipital craniectomy with scalp graft. No midline shift, mass effect, intracranial hemorrhage, or hydrocephalus is evident. Coarse calcification once again noted in the pre pontine area on the right. Significant artifact is present from patient's right eyelid prosthesis. No mastoid effusion or sinus air-fluid level. IMPRESSION: Overall no change with no acute finding. No change right pre pontine extra axial coarse calcification with postsurgical changes in the posterior fossa on the right Dictated by: Phillip Mitchell MD 10/29/2020 15:31 Phillip Mitchell MD in [place] 10/29/2020 15:31
[2020-10-29 14:43] LABS: Basophils % 0.6 % (0.1-2.0); Eosinophils # 0.1 K/mm3 (0.0-0.4); Eosinophils % 1.3 % (0.1-12.0); Hematocrit 40.9 % (42.0-52.0); Hemoglobin 13.8 g/dL (14.1-18.0); Lymphocytes # 2.2 K/mm3 (0.7-4.5); Lymphocytes % 42.2 % (10-50); Mean Corpuscular HGB Conc 33.7 g/dL (31.8-35.4); Mean Corpuscular Hemoglobin 29.9 pg (27.0-31.2); Mean Corpuscular Volume 88.8 fl (80-94); Mean Platelet Volume 7.3 fl (7.4-10.4); Monocytes # 0.3 K/mm3 (0.1-1.0); Monocytes % 5.5 % (1.7-9.3); Neutrophils # 2.6 K/mm3 (1.8-7.8); Neutrophils % 50.4 % (37.0-80.0); Platelet Count 217 K/mm3 (142-424); Red Blood Count 4.61 M/mm3 (4.60-6.20); Red Cell Distribution Width 13.2 % (11.5-17.5); White Blood Count 5.1 K/mm3 (4.8-10.8)
[2020-10-29 14:51] LABS: Alanine Aminotransferase 23 U/L (12-78); Albumin Level 4.4 g/dl (3.5-5.0); Albumin/Globulin Ratio 1.7 (1.1-1.8); Alkaline Phosphatase 87 U/L (38-126); Anion Gap 9.9 mEq/L (5-15); Aspartate Amino Transferase 27 U/L (17-59); Bilirubin,Total 0.4 mg/dl (0.2-1.3); Blood Urea Nitrogen 18 mg/dl (9-20); Calcium 9.1 mg/dl (8.4-10.2); Carbon Dioxide 24 mmol/L (22.0-30.0); Chloride 107 mmol/L (98-107); Creatinine Clearance Estimated 97 mL/min (50-200); Estimated Glomerular Filt Rate 75 ml/min (>60); GFR (African American) 90 ML/MIN (>60); Globulin 2.6 g/dL (1.3-3.2); Glucose 137 mg/dl (74-100); Potassium 3.9 mmoL/L (3.5-5.1); Sodium 137 mmol/L (136-145)
--- NOTE | 2020-10-29 14:58 | PC.NURSE ---
pt to radiology
--- NOTE | 2020-10-29 15:05 | XR_ITS ---
PROCEDURE: XR CHEST PORTABLE CLINICAL HISTORY: chest pain COMPARISON: CT CT ANGIO CHEST from 04/29/2020 CR XR CHEST PORTABLE from 08/13/2020 CR XR CHEST 2V from 10/12/2020 CR XR CHEST PORTABLE from 10/19/2020 FINDINGS: The cardiomediastinal silhouette and pulmonary vascularity are within normal limits. The lungs are clear without infiltrates, suspicious nodules, or pleural effusions. No acute bony abnormalities. IMPRESSION: No acute findings. Dictated by: Phillip Mitchell MD 10/29/2020 15:38 Phillip Mitchell MD in [place] 10/29/2020 15:39
[2020-10-29 15:09] LABS: Troponin I < 0.01 ng/ml (0.00-0.034)
--- NOTE | 2020-10-29 15:12 | HMH.EDGENADL ---
ED Disposition Clinical Impression: Visual loss Headache Qualifiers: Headache type: unspecified Headache chronicity pattern: acute headache Intractability: not intractable Qualified Code(s): R51.9 - Headache, unspecified Disposition: Xfer Short-Term Hosp Condition on Discharge: Good Referrals: Teo Dominguez MD [Primary Care Provider] - Time of Disposition: 18:38 - Critical Care Critical Care Time: No Attestation: On 10/29/20, the high probability of a clinically significant, sudden or life threatening deterioration of the following system(s) required my full and direct attention, intervention and personal management. The time I documented below is in addition to time spent performing reported procedures but includes the following listed in this critical care notation. Medical Decision Making - Medical Records Medical records reviewed: Yes: I reviewed the patient's medical records. - Luis Felipe Inquiry Pt receiving controlled substance: No Vital Signs: 10/29/20 14:25 10/29/20 15:30 10/29/20 16:00 Temperature 98.2 F Temperature Source Oral Pulse Rate 63 63 Pulse Rate [Right Radial] 69 Respiratory Rate 18 16 18 Blood Pressure 128/77 118/75 Blood Pressure [Right Arm] 119/81 Blood Pressure Mean 101 89 Blood Pressure Mean [Right Arm] 93 Blood Pressure Source [Right Arm] Automatic Cuff Blood Pressure Position [Right Arm] Sitting 02 Sat by Pulse Oximetry 96 93 L 93 L Oxygen Delivery Method Room Air 10/29/20 16:30 Temperature Temperature Source Pulse Rate 61 Pulse Rate [Right Radial] Respiratory Rate 19 Blood Pressure 127/83 Blood Pressure [Right Arm] Blood Pressure Mean 97 Blood Pressure Mean [Right Arm] Blood Pressure Source [Right Arm] Blood Pressure Position [Right Arm] 02 Sat by Pulse Oximetry 92 L Oxygen Delivery Method - Lab Data Lab results reviewed: Yes: I reviewed the patient's lab results. Lab Results 10/29/20 14:25: WBC 5.1, RBC 4.61, Hgb 13.8 L, Hct 40.9 L, MCV 88.8, MCH 29.9, MCHC 33.7, RDW 13.2, Plt Count 217, MPV 7.3 L, Neut % (Auto) 50.4, Lymph % (Auto) 42.2, [place] % (Auto) 5.5, Eos % (Auto) 1.3, Baso % (Auto) 0.6, Neut # (Auto) 2.6, Lymph # (Auto) 2.2, [place] # (Auto) 0.3, Eos # (Auto) 0.1, Baso # (Auto) 0.0 10/29/20 14:25: Sodium 137, Potassium 3.9, Chloride 107, Carbon Dioxide 24, Anion Gap 9.9, BUN 18, Creatinine 1.00, Estimated Creat Clear 97, Estimated GFR 75, Est GFR ( Amer) 90, Glucose 137 H, Calcium 9.1, Total Bilirubin 0.4, AST 27, ALT 23, Alkaline Phosphatase 87, Troponin I < 0.01, Total Protein 7.0, Albumin 4.4, Globulin 2.6, Albumin/Globulin Ratio 1.7 Result diagrams: 10/29/20 14:25 10/29/20 14:25 Orders (Tests/Meds): ED MEDICATIONS Discontinued Medications Generic Name Dose Route Start Last Admin Trade Name Freq PRN Reason Stop Dose Admin Iopamidol 100 ml 10/29/20 17:05 10/29/20 17:06 Iopamidol-370 (76%);100ml Bottle IV 10/29/20 17:06 100 ml ONCE ONE Administration Ketorolac Tromethamine 15 mg 10/29/20 17:59 10/29/20 18:10 Ketorolac 30mg/Ml Vial IV 10/29/20 18:00 15 mg ONCE ONE Administration Sodium Chloride 40 ml 10/29/20 17:05 10/29/20 17:06 0.9 % Sodium Chloride 50 Ml Vial IV 10/29/20 17:06 40 ml ONCE ONE Administration Sodium Chloride 10 ml 10/29/20 17:05 10/29/20 17:06 Sodium Chloride 0.9% 10ml Syr (Rad Only) IV 10/29/20 17:06 10 ml ONCE ONE Administration - CT Data CT Scan: Head Time Received: 17:[address] Reviewed: Yes: I have reviewed the patient's CT results, I have viewed the radiologist's interpretation Preliminary Findings: Normal/NAD Findings Narrative: CT of the head: No acute finding CT angio of the head: No acute finding CT angio of the neck: No acute finding - ECG Data Tracing #1 Normal sinus rhythm, 60 bpm, normal intervals, no ST elevation or depression, no ectopy. Possible incomplete right bundle branch block ECG initial impression date:
--- NOTE | 2020-10-29 16:19 | CT_ITS ---
PROCEDURE INFORMATION: Exam: CT Angiography Neck With Contrast Exam date and time: 10/29/2020 4:19 PM Age: 65 years old Clinical indication: Dizziness and giddiness; Prior surgery; Patient HX: Headache, blacking out, vision changes, numbness in left arm; Additional info: Visual change, syncope, globus sensation TECHNIQUE: Imaging protocol: Computed tomography angiography of the neck with contrast. 3D rendering (Not supervised by radiologist): MIP and/or 3D reconstructed images were created by the technologist. Radiation optimization: All CT scans at this facility use at least one of these dose optimization techniques: automated exposure control; mA and/or kV adjustment per patient size (includes targeted exams where dose is matched to clinical indication); or iterative reconstruction. Contrast material: ISOVUE 370; Contrast volume: 100 ml; Contrast route: INTRAVENOUS (IV); COMPARISON: No relevant prior studies available. FINDINGS: Right common carotid artery: No stenosis. No dissection or occlusion. Right internal carotid artery: Atherosclerotic calcifications are present at the right carotid bifurcation and within the proximal right internal carotid artery. There is no stenosis. Right external carotid artery: No occlusion or stenosis of the origin. Right vertebral artery: No stenosis. No dissection or occlusion. Left common carotid artery: No stenosis. No dissection or occlusion. Left internal carotid artery: Calcified and noncalcified atherosclerotic plaque is present at the left carotid bifurcation and within the proximal left internal carotid artery. This is causing approximately 25% stenosis. Left external carotid artery: No occlusion or stenosis of the origin. Left vertebral artery: No stenosis. No dissection or occlusion. Bones/joints: No acute fracture. Soft tissues: Normal. No significant soft tissue swelling. IMPRESSION: 1. No acute abnormality. 2. Chronic findings as discussed above. REFERENCES: NASCET CRITERIA. The degree of internal carotid artery stenosis is based on NASCET criteria. Normal is no stenosis. Mild is less than 50% stenosis. Moderate is 50-69% stenosis. Severe is 70% to 99% stenosis. Total occlusion is no detectable patent lumen.
--- NOTE | 2020-10-29 16:19 | CT_ITS ---
PROCEDURE INFORMATION: Exam: CT Angiography Head With Contrast, Arteriography Exam date and time: 10/29/2020 4:19 PM Age: 65 years old Clinical indication: Dizziness and giddiness; Prior surgery; Additional info: Visual change, syncope TECHNIQUE: Imaging protocol: Computed tomography angiography of the head with contrast. Exam focused on the arteries. 3D rendering (Not supervised by radiologist): MIP and/or 3D reconstructed images were created by the technologist. Radiation optimization: All CT scans at this facility use at least one of these dose optimization techniques: automated exposure control; mA and/or kV adjustment per patient size (includes targeted exams where dose is matched to clinical indication); or iterative reconstruction. Contrast material: ISOVUE 370; Contrast volume: 100 ml; Contrast route: INTRAVENOUS (IV); COMPARISON: CT HEAD/BRAIN WO CON 10/29/2020 3:00 PM FINDINGS: ANTERIOR CIRCULATION: Right internal carotid artery: Atherosclerotic calcifications are seen involving the right cavernous internal carotid artery. Mild stenosis is present. Right middle cerebral artery: Unremarkable. No occlusion or significant stenosis. No aneurysm. Right anterior cerebral artery: Unremarkable. No occlusion or significant stenosis. No aneurysm. Left internal carotid artery: Atherosclerotic calcifications are seen involving the left cavernous internal carotid artery. Mild stenosis is present. Left middle cerebral artery: Unremarkable. No occlusion or significant stenosis. No aneurysm. Left anterior cerebral artery: Unremarkable. No occlusion or significant stenosis. No aneurysm. 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 Left vertebral artery: Unremarkable. No occlusion or significant stenosis. No aneurysm. Basilar artery: Unremarkable. No occlusion or significant stenosis. No aneurysm. Right posterior cerebral artery: Unremarkable. No occlusion or significant stenosis. No aneurysm. Left posterior cerebral artery: Unremarkable. No occlusion or significant stenosis. No aneurysm. Brain: No definite mass, mass effect, or midline shift. Irregular calcification in the right cerebellopontine angle is again noted. Cerebral ventricles: No ventriculomegaly. Bones/joints: A right occipital craniectomy and cranioplasty is present. Soft tissues: Unremarkable. IMPRESSION: No acute abnormality. No large vessel occlusion
--- NOTE | 2020-10-29 16:28 | PC.NURSE ---
radiology notified of new orders on pt
--- NOTE | 2020-10-29 16:38 | PC.NURSE ---
pt going to ct
--- NOTE | 2020-10-29 17:08 | PC.NURSE ---
Pt back from CT
--- NOTE | 2020-10-29 18:29 | PC.NURSE ---
waiting rehabilitation specialist from hospitalist at [facility] MANUELA PEGUERO has spoken with Dr. Addison with neurology
--- NOTE | 2020-10-29 19:02 | PC.NURSE ---
[facility] called with bed assignment pt going to [address] [facility] number to call report [phone]
--- NOTE | 2020-10-29 20:06 | PC.NURSE ---
Attempted to call report to [facility] Cristobal the Charge Nurse said they are dealing with a situation and I would have to call back in 30 minutes to give report.
== END 2020-10-29 20:45 | disposition short-term general hospital (02) ==
PROVIDERS: Emergency Provider Family Medicine; PCP Emergency Medicine
DX: H54.7 Unspecified visual loss (principal); R51.9 Headache, unspecified; J44.9 Chronic obstructive pulmonary disease, unspecified; E78.5 Hyperlipidemia, unspecified; I10 Essential (primary) hypertension; F41.9 Anxiety disorder, unspecified; E03.9 Hypothyroidism, unspecified; Z79.899 Other long term (current) drug therapy
CPT/HCPCS: 70450; 70496; 70498; 71045; 80053; 84484; 85025; 93005; 96374; 99284; Q9967

== ENCOUNTER 2020-11-12 09:28 | Emergency (ER) | payer MEDICARE, OTHER, SELFPAY ==
[2020-11-12] VITALS (8 sets, daily range): BP systolic 120–136; BP diastolic 84–90; PULSE 59–84; RESP 12–16; TEMP 36.7; O2SAT 93–98; BMI 31.9
--- NOTE | 2020-11-12 09:30 | XR_ITS ---
PROCEDURE: XR CHEST PORTABLE CLINICAL HISTORY: chest pain COMPARISON: CT CT ANGIO CHEST from 04/29/2020 CR XR CHEST 2V from 10/12/2020 CR XR CHEST PORTABLE from 10/19/2020 CR XR CHEST PORTABLE from 10/29/2020 FINDINGS: The cardiomediastinal silhouette and pulmonary vascularity are within normal limits. The lungs are clear without infiltrates, suspicious nodules, or pleural effusions. No acute bony abnormalities. IMPRESSION: No acute findings. Dictated by: Phillip Mitchell MD 11/12/2020 10:10 Phillip Mitchell MD in [facility] 11/12/2020 10:10
--- NOTE | 2020-11-12 09:42 | HMH.EDGENADL ---
ED Disposition Clinical Impression: Atypical chest pain Disposition: Home, Self-Care Condition on Discharge: Fair Instructions: DI for Atypical Chest Pain Additional Instructions: You have been evaluated for atypical chest pain. Please follow-up with your primary care doctor in 1 to 2 days for symptom recheck. Return to the emergency department at once for any new or worsening symptoms, pain, shortness of breath, other concerns. Follow-up with your senior loss control specialist for MRI. Follow-up with your pain doctor as scheduled. Referrals: Teo Dominguez MD [Primary Care Provider] - Time of Disposition: 12:46 - Critical Care Critical Care Time: No Attestation: On , the high probability of a clinically significant, sudden or life threatening deterioration of the following system(s) required my full and direct attention, intervention and personal management. The time I documented below is in addition to time spent performing reported procedures but includes the following listed in this critical care notation. Medical Decision Making - Medical Records Medical records reviewed: Yes: I reviewed the patient's medical records. - Luis Felipe Inquiry Pt receiving controlled substance: No Vital Signs: 11/12/20 09:28 11/12/20 09:35 11/12/20 10:00 Temperature 98.0 F Temperature Source Oral Pulse Rate 65 62 Pulse Rate [Right] 63 Respiratory Rate 16 14 13 Blood Pressure 130/85 136/84 Blood Pressure [Right Arm] 130/85 Blood Pressure Mean 103 99 Blood Pressure Mean [Right Arm] 100 Blood Pressure Source [Right Arm] Automatic Cuff Blood Pressure Position [Right Arm] Sitting 02 Sat by Pulse Oximetry 96 93 L 94 L Oxygen Delivery Method Room Air 11/12/20 10:30 11/12/20 10:45 11/12/20 11:00 Temperature Temperature Source Pulse Rate 59 L 59 L 61 Pulse Rate [Right] Respiratory Rate 12 14 12 Blood Pressure 123/84 129/85 Blood Pressure [Right Arm] Blood Pressure Mean Blood Pressure Mean [Right Arm] Blood Pressure Source [Right Arm] Blood Pressure Position [Right Arm] 02 Sat by Pulse Oximetry 94 L 93 L 93 L Oxygen Delivery Method 11/12/20 11:30 Temperature Temperature Source Pulse Rate 59 L Pulse Rate [Right] Respiratory Rate 16 Blood Pressure 130/85 Blood Pressure [Right Arm] Blood Pressure Mean Blood Pressure Mean [Right Arm] Blood Pressure Source [Right Arm] Blood Pressure Position [Right Arm] 02 Sat by Pulse Oximetry 97 Oxygen Delivery Method - Lab Data Lab Results 11/12/20 09:30: WBC 5.1, RBC 4.57 L, Hgb 13.6 L, Hct 40.3 L, MCV 88.1, MCH 29.7, MCHC 33.7, RDW 13.4, Plt Count 217, MPV 8.1, Neut % (Auto) 62.1, Lymph % (Auto) 29.6, [place] % (Auto) 6.5, Eos % (Auto) 0.8, Baso % (Auto) 1.0, Neut # (Auto) 3.2, Lymph # (Auto) 1.5, [place] # (Auto) 0.3, Eos # (Auto) 0.0, Baso # (Auto) 0.1 11/12/20 09:30: Sodium 140, Potassium 3.9, Chloride 107, Carbon Dioxide 26, Anion Gap 10.9, BUN 16, Creatinine 0.90, Estimated Creat Clear 97, Estimated GFR 84, Est GFR ( Amer) 102, Glucose 114 H, Calcium 9.6, Troponin I < 0.01 11/12/20 12:05: Troponin I < 0.01 Result diagrams: 11/12/20 09:30 11/12/20 09:30 Orders (Tests/Meds): ED MEDICATIONS Discontinued Medications Generic Name Dose Route Start Last Admin Trade Name Deandreq PRN Reason Stop Dose Admin Acetaminophen 650 mg 11/12/20 12:35 11/12/20 12:40 Acetaminophen 325mg Tab PO 11/12/20 12:36 650 mg ONCE ONE Administration ORDERS Category Date Time Status Troponin I Q3H Lab 11/12/20 15:30 Ordered ECG Request by /Thomas Routine Y 11/12/20 09:29 Ordered - ECG Data Tracing #2 Sinus rhythm with ventricular rate of 72 bpm. QRS 92 QT, QTC 429. No ST segment changes. No arrhythmia. - CHUCHO Score for Non-Stemi Age of Patient: 60-69 years old Heart Rate: 50-69 bpm Systolic Blood Pressure: 120-139 mmhg Serum Creatinine: 0.80-1.19 mg/dl CHF Killip Class: I-No CHF Other Risk Factors:
[2020-11-12 09:45] LABS: Basophils # 0.1 K/mm3 (0-0.2); Chloride 107 mmol/L (98-107); Eosinophils % 0.8 % (0.1-12.0); Hematocrit 40.3 % (42.0-52.0); Hemoglobin 13.6 g/dL (14.1-18.0); Lymphocytes # 1.5 K/mm3 (0.7-4.5); Lymphocytes % 29.6 % (10-50); Mean Corpuscular HGB Conc 33.7 g/dL (31.8-35.4); Mean Corpuscular Hemoglobin 29.7 pg (27.0-31.2); Mean Corpuscular Volume 88.1 fl (80-94); Mean Platelet Volume 8.1 fl (7.4-10.4); Monocytes # 0.3 K/mm3 (0.1-1.0); Monocytes % 6.5 % (1.7-9.3); Neutrophils # 3.2 K/mm3 (1.8-7.8); Neutrophils % 62.1 % (37.0-80.0); Platelet Count 217 K/mm3 (142-424); Potassium 3.9 mmoL/L (3.5-5.1); Red Blood Count 4.57 M/mm3 (4.60-6.20); Red Cell Distribution Width 13.4 % (11.5-17.5); Sodium 140 mmol/L (136-145); White Blood Count 5.1 K/mm3 (4.8-10.8)
[2020-11-12 09:48] LABS: Anion Gap 10.9 mEq/L (5-15); Blood Urea Nitrogen 16 mg/dl (9-20); Carbon Dioxide 26 mmol/L (22.0-30.0); Creatinine Clearance Estimated 97 mL/min (50-200); Estimated Glomerular Filt Rate 84 ml/min (>60); GFR (African American) 102 ML/MIN (>60)
[2020-11-12 09:49] LABS: Calcium 9.6 mg/dl (8.4-10.2); Glucose 114 mg/dl (74-100)
[2020-11-12 10:13] LABS: Troponin I < 0.01 ng/ml (0.00-0.034)
--- NOTE | 2020-11-12 11:42 | PC.NURSE ---
Pt resting at this time. No new needs
[2020-11-12 12:41] LABS: Troponin I < 0.01 ng/ml (0.00-0.034)
== END 2020-11-12 12:58 | disposition home or self-care (01) ==
PROVIDERS: Emergency Provider Emergency Medicine; PCP Emergency Medicine
DX: R07.89 Other chest pain (principal); J44.9 Chronic obstructive pulmonary disease, unspecified; I10 Essential (primary) hypertension; E11.65 Type 2 diabetes mellitus with hyperglycemia; Z79.84 Long term (current) use of oral hypoglycemic drugs; I25.10 Atherosclerotic heart disease of native coronary artery without angina pectoris; E78.5 Hyperlipidemia, unspecified; E03.9 Hypothyroidism, unspecified; Z20.822 Contact with and (suspected) exposure to COVID-19; Z91.040 Latex allergy status; Z88.0 Allergy status to penicillin; Z88.2 Allergy status to sulfonamides
CPT/HCPCS: 71045; 80048; 84484; 85025; 99282

== ENCOUNTER → 2020-11-12 14:36 | Outpatient (POV) | payer MEDICARE, OTHER, SELFPAY ==
--- NOTE | 2020-11-12 09:24 | ECG_ITS ---
APPROVED REPORT Exam: Resting ECG HR:72 bpm ECG Measurements Heart Rate 72 AXES GA 166 P 58 QRSd 92 QRS -3 QT 392 T 39 QTc 429 Conclusion Normal sinus rhythm Normal ECG Electronically signed by : Dominguez Juarez, 11/15/2020 09:08:42
== END ==
PROVIDERS: Visit Provider Dermatology
DX: R07.9 Chest pain, unspecified
CPT/HCPCS: 93005

== ENCOUNTER → 2020-11-13 10:21 | Outpatient (CLI) | payer MEDICARE, OTHER, SELFPAY | PROVIDERS: Visit Provider Internal Medicine Gastroenterology | DX: Z01.812 Encounter for preprocedural laboratory examination (principal); Z20.822 Contact with and (suspected) exposure to COVID-19; Z13.810 Encounter for screening for upper gastrointestinal disorder; Z12.11 Encounter for screening for malignant neoplasm of colon | CPT/HCPCS: U0003 ==

== ENCOUNTER 2020-11-15 08:45 | Day surgery (SDC) | payer MEDICARE, OTHER, SELFPAY ==
[2020-11-14 09:15] VITALS: BMI 31.9
[2020-11-15] VITALS (7 sets, daily range): BP systolic 88–149; BP diastolic 60–100; PULSE 56–67; RESP 18; TEMP 36.1–36.2; O2SAT 94–98
--- NOTE | 2020-11-15 10:19 | P.PCN_ITS ---
[facility] Procedure Note Procedure Note:: Upper Endoscopy Procedure Report: Esophagogastroduodenoscopy with cold biopsies and TTS balloon dilation Endoscopost: Montrell Ambrocio II, MD Referring Physician: Teo Dominguez MD Date of Procedure: November 15, 2020 Equipment: Olympus GIF 190 standard upper endoscope Sedation: MAC sedation Indications: Mr. Nolan is a 65-year-old gentleman with ongoing dyspepsia. He reports epigastric abdominal pain and discomfort with bloating, nausea, early satiety and dysphagia. He did go to the emergency department in July 2020 and was diagnosed with diverticulitis. He was given Cipro and Flagyl. The patient does have significant heartburn, reflux and belching. He does take omeprazole 40 mg by mouth daily but continues to have symptoms. He does report some globus sensation. He does state that his bowel function has improved with generic ClearLax. Procedure: Prior to the procedure, a history and physical exam was performed, and patient's medications and allergies were reviewed. The risks, benefits and alternatives of the sedation and procedure were discussed with the patient. All questions were answered and informed consent was obtained. The patient was brought to the procedure room. Patient identification and proposed procedure were verified by the physician and the nurse. The patient was placed in a left lateral decubitus position and the scope was passed under direct vision. Throughout the procedure, the patient's blood pressure, pulse, and oxygen saturations were monitored continuously. The upper GI endoscopy was accomplished without difficulty. The patient tolerated the procedure well. Findings: The scope was passed directly into the upper esophagus and advanced t o the third portion of the duodenum. The post bulbar duodenum and duodenal bulb were normal with normal mucosa and conniventes. The scope was withdrawn through a normal duodenal bulb and pylorus into the stomach. There was bile reflux with linear reactive gastropathy of the antrum and body of the stomach. The remainder of the fundus of the stomach was grossly normal. Upon retroflexion there was no hiatal hernia. 2 biopsies were taken in the antrum and along the lesser curvature for histology to rule out gastritis and/or H pylori. The scope was then withdrawn into the esophagus. There was no evidence of reflux esophagitis or Palm's. There was a serrated Z-line and biopsies were taken at the GE junction. There was no Schatzki's ring. There were tertiary contractions and evidence of moderate esophageal dysmotility. The entire esophagus was dilated to 60 English/20 mm with a TTS hydrostatic balloon. There was mild resistance at the cricopharyngeus. The remainder of the esophageal mucosa was normal. Impression: 1. Cricopharyngeal spasm status post dilation to 20 mm 2. Nonerosive GERD with moderate esophageal dysmotility 3. Bile reflux with linear reactive gastropathy Plan: I will follow-up the biopsies. The patient does have functional dyspepsia and functional GERD with some esophageal spasm. The patient needs to continue a complete fiber bowel regimen (ClearLax plus bulk fiber). I would also consider adding a promotility agent (i.e. metoclopramide). We will discuss treatment options and I will proceed with colonoscopy.
--- NOTE | 2020-11-15 10:45 | P.PCN_ITS ---
[facility] Procedure Note Procedure Note:: Colonoscopy Procedure Report: Colonoscopy with cold snare polypectomy Endoscopist: Montrell Ambrocio II, MD Referring physician: Teo Dominguez MD Date of Procedure: November 15, 2020 Equipment: Olympus 190 variable stiffness pediatric colonoscope Sedation: MAC sedation Indication: Mr. Nolan is a 65-year-old gentleman with bloating and obstipation. He is taking ClearLax which helps to control bowel function. The patient has had epigastric abdominal pain and dyspepsia. He did have a colonoscopy in September 2017 and had 5 colon polyps (tubular adenomas x5) removed. The patient also had a small prostate nodule but had a normal PSA. The patient is here for follow-up. He did have abdominal discomfort and diarrhea in July 2020. He went to the emergency department and was diagnosed with diverticulitis. He was given Cipro and Flagyl. The patient reports no rectal bleeding or weight loss. He reports no family history of colon cancer. His father had prostate cancer. Procedure: Prior to the procedure, a history and physical exam was performed, and patient's medications and allergies were reviewed. The risks, benefits and alternatives of the sedation and procedure were discussed with the patient. All questions were answered and informed consent was obtained. The patient was brought to the procedure room. Patient identification and proposed procedure were verified by the physician and the nurse. The patient was placed in a left lateral decubitus position and the scope was passed under direct vision. Throughout the procedure, the patient's blood pressure, pulse, and oxygen saturations were monitored continuously. The colonoscopy was accomplished without difficulty. The patient tolerated the procedure well. Findings: On digital rectal examination there was normal rectal tone. There were no external hemorrhoids. The prostate was 2-3+, mildly firm and asymmetric with some firmness in right lower lobe of prostate. The colonoscope was introduced through the anal canal to the rectum and advanced to the cecum. The ileocecal valve and appendiceal orifice were identified. The scope was advanced a short distance into the ileum which appeared grossly normal. The scope was then withdrawn into the colon. There were 8 colon polyps (cecal x2 (4 and 4 mm), transverse x4 (4, 4, 5 and 6 mm) and descending x2 (3 and 5 mm)) which were all removed via cold snare polypectomy. There were scattered diverticuli throughout the descending and sigmoid colon (LEFT colon). The rectum itself was normal. Upon retroflexion within the rectum there were grade 2 internal hemorrhoids. The preparation was excellent throughout with Roscoe Preparation Score of 9. The cecal time was 12 minutes. Impression: 1. Colonic polyps x8 2. Left-sided diverticulosis 3. Grade 2 internal hemorrhoids 4. Firm asymmetric prostate Plan: I will recommend repeat surveillance colonoscopy again in 3 years based upon the number of adenomatous polyps. I would encourage the patient to continue combined ClearLax/MiraLAX plus a good bulking fiber supplement (Metamucil or Konsyl). I will discuss the findings with the patient and family.
--- NOTE | 2020-11-15 17:33 | P.PN_ITS ---
[facility] Anesthesia Checklist - Patient Identification Patient Identification: Arm Band - Structural Data Admitted From: Home Planned Operative Procedure/s: EGD Consent for Planned Operative Procedure(s) Verified: Yes Verified Documents: Surgical Consent, History and Physical - NPO Status Verified Time NPO: 00:00 - Additional verifications Anesthesia Reactions: No - Airway Assessment C-Spine Mobility Assessed: Yes TMJ Mobility Assessed: Yes Dentition: Good Dentition - Neurological Assessment Level of Consciousness: Awake, Alert - Anesthesia Plan Anesthesia Risk discussed: Yes Anesthesia Plan: Verified ASA Class: III Anesthesia Type: MAC [facility] History Medical History: Reports:: Aneurysm, Anxiety, Chronic Obstructive Pulmonary Disease (COPD), Coronary Artery Disease, Diabetes Mellitus Type 2, Hyperlipidemia, Hypertension, Lung Disease, Myocardial Infarction, Transient Ischemic Attacks (TIA), Ulcer Denies:: Cancer, Diabetes Mellitus Type 1, Internal Pacemaker, MRSA, Seizures *Have you ever received a pneumonia vaccine?: Yes *Have you received a flu vaccine this season?: No Other Medical History: Reports: Anemia, Arthritis, Hypothyroidism, Thyroid Disease Anesthesia experience/problems:: None Other Surgeries: Yes: No Previous Surgery, Angiogram, Appendectomy, Cancer Surgery, Cardiac Catheterization, Colonoscopy, Coronary Stent, Plastic Surgery, Other. No: Pacemaker Amputation: No Fractures: Yes (left wrist and arm) - *Social History Last grade of school completed: High school graduate Smoking Status: Never smoker Tobacco Type: cigarettes # Packs/Day (cigarettes): 4 Alcohol Intake: never Alcohol Intake Frequency:: other Substance Use Type: marijuana, former substance user *Occupational Status:: retired Housing: house Household Members: other *Travel in the last 8 weeks: None - Psychiatric History Pschychiatric History:: Reports:: Anxiety Family Hx:: No significant family history
[2020-11-16 11:34] LABS: POC Glucose,Bedside 104 (70-110)
== END 2020-11-15 11:31 | disposition home or self-care (01) ==
LOC: OUTP 08:47
PROVIDERS: PCP Emergency Medicine; Visit Provider Internal Medicine Gastroenterology
PROC: 0DJ08ZZ Inspection of Upper Intestinal Tract, Via Natural or Artificial Opening Endoscopic (ICD-10-PCS; CPT 43235; principal; 2020-11-15 10:00)
DX: J39.2 Other diseases of pharynx (principal); K21.9 Gastro-esophageal reflux disease without esophagitis; K22.4 Dyskinesia of esophagus; K31.9 Disease of stomach and duodenum, unspecified; Z87.19 Personal history of other diseases of the digestive system; Z80.42 Family history of malignant neoplasm of prostate; K63.5 Polyp of colon; K57.30 Diverticulosis of large intestine without perforation or abscess without bleeding; K64.1 Second degree hemorrhoids; E11.9 Type 2 diabetes mellitus without complications; I25.10 Atherosclerotic heart disease of native coronary artery without angina pectoris; J44.9 Chronic obstructive pulmonary disease, unspecified
CPT/HCPCS: 43239; 43249; 45385; 82962; 88305; C1726; J2704

== ENCOUNTER → 2020-11-26 10:10 | Outpatient (POV) | payer MEDICARE, OTHER, SELFPAY | PROVIDERS: Visit Provider Dermatology | DX: Z00.00 Encounter for general adult medical examination without abnormal findings (principal) ==

== ENCOUNTER → 2020-11-28 12:41 | Outpatient (CLI) | payer MEDICARE, OTHER, SELFPAY ==
--- NOTE | 2020-11-28 12:41 | MR_ITS ---
PROCEDURE: MR CERVICAL SPINE WO CON CLINICAL INDICATION: neck pain HEADACHES, BLACKING OUT WHEN TURNING HEAD TO LEFT, LT ARM TINGLING AND NUMBNESS. SYMPTOMS X5-6 WEEKS COMPARISON: MR MR THORACIC SPINE WO/W CON from 12/12/[address] ANGIO NECK from 10/29/2020 TECHNIQUE: Standard multiplanar multiecho sequences are performed without contrast. 3-D MIP and myelographic images are also rendered and reviewed FINDINGS: There is normal alignment. The craniocervical junction has an unremarkable appearance. C2-C3: Moderate left-sided foraminal narrowing from facet hypertrophic change C3-C4: Severe right-sided and moderate left foraminal narrowing from facet and uncovertebral hypertrophy. Minimal bulging disc with degenerative disc disease. C4-C5: Severe left-sided foraminal narrowing from facet and uncovertebral hypertrophy. There is mild degenerative disc disease with bulging disc and moderate to severe right-sided foraminal narrowing. There is a minimal central disc protrusion without impingement. Borderline narrowing of the canal. C5-C6: There is fusion of the C5-C6 vertebral body. No foraminal narrowing. C6-C7: 4 mm anterolisthesis of C6. Degenerative disc disease at that level with severe right-sided facet hypertrophic change and severe right-sided foraminal narrowing. Moderate left-sided foraminal narrowing. C7-T1: Degenerative disc disease. Mild bilateral foraminal narrowing. There is minimal prominence of the central spinal canal at the T2 level probably unchanged from 12/12/2019 thoracic spine MRI IMPRESSION: 1. Multilevel cervical spondylosis with the most prominent feature being facet and uncovertebral hypertrophy with multilevel foraminal narrowing. Please see above for detailed description at each level. 2. Minimal prominence of the central canal at the T2 level not significantly changed. Dictated by: Phillip Mitchell MD 11/29/2020 07:50 Phillip Mitchell MD in [place] 11/29/2020 07:50
--- NOTE | 2020-11-28 12:41 | MR_ITS ---
PROCEDURE: MR THORACIC SPINE WO CON CLINICAL INDICATION: Thoracic pain Pain between the scapula worse on the right side COMPARISON: MR MR THORACIC SPINE WO/W CON from 12/12/2019 TECHNIQUE: Routine multiplanar multi echo sequences are performed without gadolinium enhancement. FINDINGS: Normal alignment. No fracture or dislocation. No bony destructive process. There is multilevel thoracic spondylosis from T1 to T12 as previously described which does not appear to be significantly changed. T4-T5: There is a small left paracentral disc protrusion versus disc osteophyte complex with mild impingement and flattening of the left aspect of the cord probably not significantly changed given the slight difference in axial imaging location. There is a tiny right paracentral disc protrusion at T10-T11 without impingement with degenerative disc disease and Schmorl's nodes at that level. This is not significantly changed. There is minimal bulging disc at T7-T8 and T10-T11 not significantly changed. There is minimal prominence of the central canal at the T12 and T2 level not significantly changed. IMPRESSION: Overall stable MRI appearance of the thoracic spine with multilevel thoracic spondylosis. Please see above for detailed description at each level. No change with no acute finding. No change minimal dilatation of the central canal at the T12 level and at the T2 level. Dictated by: Phillip Mitchell MD 11/29/2020 07:59 Phillip Mitchell MD in [facility] 11/29/2020 07:59
== END ==
PROVIDERS: PCP Emergency Medicine; Visit Provider Emergency Medicine
DX: M54.2 Cervicalgia (principal); M54.6 Pain in thoracic spine
CPT/HCPCS: 72141; 72146; 76376

== ENCOUNTER 2021-02-16 17:17 | Emergency (ER) | payer MEDICARE, OTHER, SELFPAY ==
[2021-02-16 17:17] VITALS: BP 160/90; PULSE 70; RESP 18; TEMP 36.7; O2SAT 96; BMI 31.9
--- NOTE | 2021-02-16 17:44 | ECG_ITS ---
APPROVED REPORT Exam: Resting ECG HR:74 bpm ECG Measurements Heart Rate 74 AXES MA 174 P 47 QRSd 98 QRS -40 QT 398 T 32 QTc 441 Conclusion Normal sinus rhythm Left axis deviation Minimal voltage criteria for LVH, may be normal variant Abnormal ECG Electronically signed by : Dominguez Juarez MD 02/17/2021 18:02:15
--- NOTE | 2021-02-16 17:45 | XR_ITS ---
PROCEDURE INFORMATION: Exam: XR Chest Exam date and time: 02/16/2021 5:45 PM Age: 65 years old Clinical indication: Cough; Prior surgery; Surgery date: 6+ months; Surgery type: Cardiac stent TECHNIQUE: Imaging protocol: XR of the chest. Views: 1 view. COMPARISON: CR XR CHEST PORTABLE 11/12/2020 10:00 AM FINDINGS: Lungs: Unremarkable. No consolidation. Pleural spaces: Unremarkable. No pleural effusion. No pneumothorax. Heart/Mediastinum: Unremarkable. No cardiomegaly. Bones/joints: Unremarkable. IMPRESSION: No acute findings.
--- NOTE | 2021-02-16 17:50 | HMH.EDCP ---
ED Disposition Clinical Impression: Nonspecific chest pain Disposition: Home, Self-Care Condition on Discharge: Good Instructions: DI for Atypical Chest Pain Referrals: Provider,Referral, [Referring] - Sami Castellanos MD [Staff Physician] - - Critical Care Critical Care Time: No Attestation: On 02/16/21, the high probability of a clinically significant, sudden or life threatening deterioration of the following system(s) required my full and direct attention, intervention and personal management. The time I documented below is in addition to time spent performing reported procedures but includes the following listed in this critical care notation. Medical Decision Making - Medical Records Medical records reviewed: Yes: I reviewed the patient's medical records. - Luis Felipe Inquiry Pt receiving controlled substance: Yes Luis Felipe was queried for this patient: No Reason not queried -: Luis Felipe login issues Risks and benefits of using a controlled substance: were discussed with pt by me Vital Signs: 02/16/21 17:17 02/16/21 18:19 Temperature 98.1 F Temperature Source Oral Pulse Rate 65 Pulse Rate [Left Radial] 70 Respiratory Rate 18 Blood Pressure 121/64 Blood Pressure [Right Arm] 160/90 H Blood Pressure Mean [Right Arm] 113 Blood Pressure Source [Right Arm] Automatic Cuff Blood Pressure Position Sitting Blood Pressure Position [Right Arm] Sitting 02 Sat by Pulse Oximetry 96 95 Oxygen Delivery Method Room Air Room Air - Lab Data Lab Results 02/16/21 17:27: WBC 5.8, RBC 4.63, Hgb 14.0 L, Hct 41.9 L, MCV 90.6, MCH 30.3, MCHC 33.4, RDW 13.5, Plt Count 230, MPV 8.4, Neut % (Auto) 48.8, Lymph % (Auto) 41.9, [place] % (Auto) 6.3, Eos % (Auto) 1.4, Baso % (Auto) 1.6, Neut # (Auto) 2.9, Lymph # (Auto) 2.5, [place] # (Auto) 0.4, Eos # (Auto) 0.1, Baso # (Auto) 0.1 02/16/21 17:27: Sodium 141, Potassium 4.0, Chloride 105, Carbon Dioxide 27, Anion Gap 13.0, BUN 17, Creatinine 1.00, Estimated Creat Clear 97, Estimated GFR 75, Est GFR ( Amer) 90, Glucose 121 H, Calcium 9.9, Total Bilirubin 0.8, AST 29, ALT 23, Alkaline Phosphatase 101, Troponin I < 0.01, Total Protein 7.4, Albumin 4.4, Globulin 3.0, Albumin/Globulin Ratio 1.5, Lipase 54 Result diagrams: 02/16/21 17:27 02/16/21 17:27 Orders (Tests/Meds): ED MEDICATIONS Generic Name Dose Route Start Last Admin Trade Name Freq PRN Reason Stop Dose Admin Sodium Chloride 8 ml 02/16/21 17:44 Sodium Chloride 0.9% 10ml Vial IV 03/18/21 17:43 NEEDED PRN dilute pepcid Discontinued Medications Generic Name Dose Route Start Last Admin Trade Name Freq PRN Reason Stop Dose Admin Famotidine 20 mg 02/16/21 17:44 Famotidine 20mg/2ml Vial IV 02/16/21 17:45 ONCE ONE Morphine Sulfate 4 mg 02/16/21 17:47 Morphine 4mg/Ml Syringe IV 02/16/21 17:48 ONCE ONE Ondansetron HCl 4 mg 02/16/21 17:44 Ondansetron 4mg/2ml Vial IV 02/16/21 17:45 ONCE ONE ORDERS Category Date Time Status Troponin I Q3H Lab 02/16/21 20:45 Ordered Troponin I Q3H Lab 02/16/21 23:45 Ordered - Radiology Data #1 Image(s): Chest Image Reviewed: Yes I reviewed the patient's radiology results, Yes I reviewed the patient's radiology image, Yes I have reviewed radiologist's interpretation Preliminary Findings: Normal/NAD, No Infiltrates Seen - ECG Data Tracing #1 I reviewed this ECG and interpreted as documented below: No ventricular to 74 bpm, IN 174 ms, normal QTC. Sinus rhythm with nonspecific ST changes. ECG initial impression date: 02/16/21 ECG initial impression time: 17:14 - Reevaluation(s) Time: 18:58 Reevaluation #1: On reevaluation, the patient is pain-free. Troponin negative. Repeat examination does not show any significant discomfort. I do believe the patient's pain is muscular in nature. Reproducible on exam. 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
[2021-02-16 17:52] LABS: Basophils # 0.1 K/mm3 (0-0.2); Basophils % 1.6 % (0.1-2.0); Eosinophils # 0.1 K/mm3 (0.0-0.4); Eosinophils % 1.4 % (0.1-12.0); Hematocrit 41.9 % (42.0-52.0); Lymphocytes # 2.5 K/mm3 (0.7-4.5); Lymphocytes % 41.9 % (10-50); Mean Corpuscular HGB Conc 33.4 g/dL (31.8-35.4); Mean Corpuscular Hemoglobin 30.3 pg (27.0-31.2); Mean Corpuscular Volume 90.6 fl (80-94); Mean Platelet Volume 8.4 fl (7.4-10.4); Monocytes # 0.4 K/mm3 (0.1-1.0); Monocytes % 6.3 % (1.7-9.3); Neutrophils # 2.9 K/mm3 (1.8-7.8); Neutrophils % 48.8 % (37.0-80.0); Platelet Count 230 K/mm3 (142-424); Red Blood Count 4.63 M/mm3 (4.60-6.20); Red Cell Distribution Width 13.5 % (11.5-17.5); White Blood Count 5.8 K/mm3 (4.8-10.8)
[2021-02-16 17:53] LABS: Chloride 105 mmol/L (98-107); Sodium 141 mmol/L (136-145)
[2021-02-16 17:56] LABS: Alanine Aminotransferase 23 U/L (12-78); Alkaline Phosphatase 101 U/L (38-126); Aspartate Amino Transferase 29 U/L (17-59); Bilirubin,Total 0.8 mg/dl (0.2-1.3); Blood Urea Nitrogen 17 mg/dl (9-20); Carbon Dioxide 27 mmol/L (22.0-30.0); Creatinine Clearance Estimated 97 mL/min (50-200); Estimated Glomerular Filt Rate 75 ml/min (>60); GFR (African American) 90 ML/MIN (>60)
[2021-02-16 17:57] LABS: Albumin Level 4.4 g/dl (3.5-5.0); Albumin/Globulin Ratio 1.5 (1.1-1.8); Calcium 9.9 mg/dl (8.4-10.2); Glucose 121 mg/dl (74-100); Lipase 54 U/L (23-300); Total Protein,Serum 7.4 g/dl (6.3-8.2)
[2021-02-16 18:10] LABS: Troponin I < 0.01 ng/ml (0.00-0.034)
[2021-02-16 18:19] VITALS: BP 121/64; PULSE 65; O2SAT 95
[2021-02-16 19:30] VITALS: BP 140/69; PULSE 65; RESP 20; TEMP 36.7; O2SAT 95
== END 2021-02-16 19:31 | disposition home or self-care (01) ==
PROVIDERS: Emergency Provider Emergency Medicine; PCP Emergency Medicine
DX: R07.9 Chest pain, unspecified (principal); J44.9 Chronic obstructive pulmonary disease, unspecified; I25.10 Atherosclerotic heart disease of native coronary artery without angina pectoris; E11.9 Type 2 diabetes mellitus without complications; E78.5 Hyperlipidemia, unspecified; I10 Essential (primary) hypertension; I25.2 Old myocardial infarction; F41.9 Anxiety disorder, unspecified; Z86.73 Personal history of transient ischemic attack (TIA), and cerebral infarction without residual deficits; E03.9 Hypothyroidism, unspecified; M19.90 Unspecified osteoarthritis, unspecified site; D64.9 Anemia, unspecified
CPT/HCPCS: 71045; 80053; 83690; 84484; 85025; 93005; 96374; 96375; 99283; J2405

== ENCOUNTER → 2021-03-26 12:45 | Outpatient (CLI) | payer MEDICARE, OTHER, SELFPAY ==
[2021-03-26 14:05] LABS: Amphetamine/Metha Screen,Urine Negative ng/ml (<1000)
[2021-03-26 14:10] LABS: Benzodiazepines Screen,Urine Negative ng/ml (<200); Cannabinoid Screen,Urine Positive ng/ml (<50)
[2021-03-26 14:11] LABS: Barbiturates Screen,Urine Negative ng/ml (<200)
[2021-03-26 14:12] LABS: Cocaine Screen,Urine Negative ng/ml (<300); Methadone Screen,Urine Negative ng/ml (<300)
[2021-03-26 14:13] LABS: Opiate Screen,Urine Positive ng/ml (<300)
[2021-03-26 14:14] LABS: Phencyclidine Screen,Urine Negative ng/ml (<25)
== END ==
PROVIDERS: Visit Provider Emergency Medicine
DX: Z79.899 Other long term (current) drug therapy (principal)
CPT/HCPCS: 80305

== ENCOUNTER → 2021-05-28 13:19 | Outpatient (CLI) | payer MEDICARE, OTHER, SELFPAY ==
[2021-05-28 13:56] LABS: Basophils % 0.7 % (0.1-2.0); Eosinophils # 0.1 K/mm3 (0.0-0.4); Eosinophils % 1.2 % (0.1-12.0); Hematocrit 42.3 % (42.0-52.0); Lymphocytes % 36.5 % (10-50); Mean Corpuscular HGB Conc 33.2 g/dL (31.8-35.4); Mean Corpuscular Hemoglobin 30.1 pg (27.0-31.2); Mean Corpuscular Volume 90.5 fl (80-94); Mean Platelet Volume 7.9 fl (7.4-10.4); Monocytes # 0.3 K/mm3 (0.1-1.0); Monocytes % 5.8 % (1.7-9.3); Neutrophils # 3.1 K/mm3 (1.8-7.8); Neutrophils % 55.9 % (37.0-80.0); Platelet Count 204 K/mm3 (142-424); Red Blood Count 4.67 M/mm3 (4.60-6.20); Red Cell Distribution Width 13.7 % (11.5-17.5); White Blood Count 5.5 K/mm3 (4.8-10.8)
[2021-05-28 14:24] LABS: Chloride 104 mmol/L (98-107); Potassium 4.4 mmoL/L (3.5-5.1); Sodium 139 mmol/L (136-145)
[2021-05-28 14:26] LABS: Bilirubin,Unconjugated 0.3 mg/dL (0.0-1.1); Blood Urea Nitrogen 13 mg/dl (9-20); Estimated Glomerular Filt Rate 96 ml/min (>60); GFR (African American) 117 ML/MIN (>60)
[2021-05-28 14:27] LABS: Alanine Aminotransferase 12 U/L (12-78); Albumin Level 4.3 g/dl (3.5-5.0); Albumin/Globulin Ratio 1.7 (1.1-1.8); Alkaline Phosphatase 104 U/L (38-126); Anion Gap 10.4 mEq/L (5-15); Aspartate Amino Transferase 24 U/L (17-59); Bilirubin,Direct 0.1 mg/dl (0.0-0.4); Bilirubin,Indirect 0.3 mg/dL (0.0-0.9); Bilirubin,Total 0.4 mg/dl (0.2-1.3); Calcium 9.5 mg/dl (8.4-10.2); Carbon Dioxide 29 mmol/L (22.0-30.0); Chol/HDL Ratio 3.8 (1-3.5); Cholesterol 154 mg/dl (140-200); Globulin 2.5 g/dL (1.3-3.2); Glucose 100 mg/dl (74-100); HDL Cholesterol 41 mg/dl (40-60); Magnesium 1.8 mg/dl (1.6-2.3); Total Protein,Serum 6.8 g/dl (6.3-8.2); Triglycerides 113 mg/dl (30-150); VLDL Cholesterol 23 mg/dL (0-40)
[2021-05-28 14:43] LABS: Free T4 (Free Thyroxine) 0.89 ng/dl (0.78-2.19)
[2021-05-29 11:30] LABS: Hep A Ab, IgM Negative (Negative); Hepatitis B Core Antibody IgM Negative (Negative); Hepatitis B Surface Antigen Negative (Negative); Hepatitis C Antibody <0.1 s/co ratio (0.0-0.9)
== END ==
PROVIDERS: Visit Provider Physician Assistant
DX: E11.9 Type 2 diabetes mellitus without complications (principal); E78.5 Hyperlipidemia, unspecified; I11.9 Hypertensive heart disease without heart failure; I25.10 Atherosclerotic heart disease of native coronary artery without angina pectoris; I71.4 Abdominal aortic aneurysm, without rupture; R06.02 Shortness of breath; R53.83 Other fatigue; Z87.891 Personal history of nicotine dependence; Z95.5 Presence of coronary angioplasty implant and graft; Z79.84 Long term (current) use of oral hypoglycemic drugs
CPT/HCPCS: 80053; 80061; 80074; 80076; 83735; 84439; 84443; 85025

== ENCOUNTER → 2021-06-23 13:50 | Outpatient (CLI) | payer MEDICARE, OTHER, SELFPAY ==
[2021-06-23 14:39] LABS: 25-OH Vitamin D, Total 26.1 ng/mL (30-100)
[2021-06-26 15:35] LABS: Testosterone, Total, LC/MS 242.8 ng/dL (264.0-916.0)
== END ==
PROVIDERS: Visit Provider Emergency Medicine
DX: E55.9 Vitamin D deficiency, unspecified (principal); E29.1 Testicular hypofunction
CPT/HCPCS: 82306; 84403

== ENCOUNTER 2021-06-26 15:56 | Emergency (ER) | payer MEDICARE, OTHER, SELFPAY ==
--- NOTE | 2021-06-26 15:56 | ECG_ITS ---
APPROVED REPORT Exam: Resting ECG HR:76 bpm ECG Measurements Heart Rate 76 AXES NM 164 P 69 QRSd 90 QRS -35 QT 400 T 49 QTc 450 Conclusion Normal sinus rhythm Left axis deviation Abnormal ECG Electronically signed by : Dominguez Juarez MD 06/27/2021 09:53:15
[2021-06-26 15:58] VITALS: BP 134/85; PULSE 75; RESP 13; TEMP 36.8; O2SAT 95; BMI 31.6
--- NOTE | 2021-06-26 16:12 | XR_ITS ---
PROCEDURE: XR CHEST PORTABLE CLINICAL HISTORY: chest pain COMPARISON: CT CT ANGIO CHEST from 04/29/2020 CR XR CHEST PORTABLE from 10/29/2020 CR XR CHEST PORTABLE from 11/12/2020 CR XR CHEST PORTABLE from 02/16/2021 FINDINGS: The cardiomediastinal silhouette and pulmonary vascularity are within normal limits. The lungs are clear without infiltrates, suspicious nodules, or pleural effusions. No acute bony abnormalities. IMPRESSION: No acute findings. Dictated by: Phillip Mitchell MD 06/26/2021 16:45 Phillip Mitchell MD in [place] 06/26/2021 16:45
[2021-06-26 16:16] LABS: POC Glucose,Bedside 109 (70-110)
[2021-06-26 16:21] LABS: Microscopic, Urine URINE MICROSCOPIC (MICROSCOPIC)
[2021-06-26 16:25] LABS: Appearance,Urine CLEAR (Clear); Bilirubin,Urine Negative (Negative); Blood, Urine TRACE-I (Negative); Color,Urine YELLOW (Yellow); Glucose,Urine (UA) Negative (Negative); Ketones,Urine Negative (Negative); Leukocyte Esterase,Urine Negative (Negative); Nitrate,Urine Negative (Negative); Protein,Urine Negative (Negative); Urobilinogen,Urine 0.2 EU/dl (0.2)
[2021-06-26 16:28] LABS: Basophils # 0.1 K/mm3 (0-0.2); Basophils % 0.9 % (0.1-2.0); Eosinophils % 0.5 % (0.1-12.0); Hematocrit 44.3 % (42.0-52.0); Hemoglobin 14.4 g/dL (14.1-18.0); Lymphocytes # 1.1 K/mm3 (0.7-4.5); Lymphocytes % 12.6 % (10-50); Mean Corpuscular HGB Conc 32.5 g/dL (31.8-35.4); Mean Corpuscular Hemoglobin 30.4 pg (27.0-31.2); Mean Corpuscular Volume 93.7 fl (80-94); Mean Platelet Volume 8.1 fl (7.4-10.4); Monocytes # 0.5 K/mm3 (0.1-1.0); Monocytes % 6.2 % (1.7-9.3); Neutrophils % 79.9 % (37.0-80.0); Platelet Count 218 K/mm3 (142-424); Red Blood Count 4.72 M/mm3 (4.60-6.20); Red Cell Distribution Width 13.7 % (11.5-17.5); White Blood Count 8.8 K/mm3 (4.8-10.8)
[2021-06-26 16:29] LABS: Alanine Aminotransferase 26 U/L (12-78); Albumin Level 4.5 g/dl (3.5-5.0); Albumin/Globulin Ratio 1.5 (1.1-1.8); Alkaline Phosphatase 93 U/L (38-126); Anion Gap 11.7 mEq/L (5-15); Aspartate Amino Transferase 31 U/L (17-59); Bilirubin,Total 0.7 mg/dl (0.2-1.3); Blood Urea Nitrogen 12 mg/dl (9-20); Calcium 9.8 mg/dl (8.4-10.2); Carbon Dioxide 30 mmol/L (22.0-30.0); Chloride 100 mmol/L (98-107); Creatinine Clearance Estimated 96 mL/min (50-200); Estimated Glomerular Filt Rate 96 ml/min (>60); GFR (African American) 117 ML/MIN (>60); Glucose 109 mg/dl (74-100); Potassium 3.7 mmoL/L (3.5-5.1); Sodium 138 mmol/L (136-145); Total Protein,Serum 7.5 g/dl (6.3-8.2)
[2021-06-26 16:44] LABS: Troponin I < 0.01 ng/ml (0.00-0.034)
[2021-06-26 16:44] LABS: Bacteria,Urine Trace /lpf; RBC,Urine Occasional #/hpf (0-3)
[2021-06-26 17:09] LABS: Influenza A, PCR Not Detected (NotDetected); Influenza B, PCR Not Detected (NotDetected)
[2021-06-26 17:32] LABS: Coronavirus 19, PCR Detected (NotDetected)
--- NOTE | 2021-06-26 17:39 | HMH.EDCP ---
ED Disposition Clinical Impression: Chest pain, COVID-19, GERD (gastroesophageal reflux disease) Disposition: Home, Self-Care Condition on Discharge: Good Instructions: DI for Gastroesophageal Reflux Disease (GERD), DI for Atypical Chest Pain, Coronavirus Disease 2018 Additional Instructions: Please follow up with your primary care physician in 2-3 days for further management. Please continue to use your PPI for heart burn. Please use over the counter maalox and mylanta for acute flare ups. Please return for any concerning symptoms such as worsening chest pain, difficulty breathing or any other concerning symptoms. Referrals: Teo Dominguez MD [Primary Care Provider] - - Critical Care Critical Care Time: Yes Attestation: On 06/26/21, the high probability of a clinically significant, sudden or life threatening deterioration of the following system(s) required my full and direct attention, intervention and personal management. The time I documented below is in addition to time spent performing reported procedures but includes the following listed in this critical care notation. Total Critical Care Time: 30 Vital system(s) involved:: Circulatory Failure My critical care processes included: Assessment & monitoring of V/S, Initial and Re-exams, Data Review/Interpretation, Coordinating Care, Medication Orders and management Medical Decision Making - Medical Records Medical records reviewed: Yes: I reviewed the patient's medical records. - Luis Felipe Inquiry Pt receiving controlled substance: No Vital Signs: 06/26/21 15:58 06/26/21 18:37 Temperature 98.3 F 98.2 F Temperature Source Oral Oral Pulse Rate 71 Pulse Rate [Right Radial] 75 Respiratory Rate 13 18 Blood Pressure 131/75 Blood Pressure [Right Arm] 134/85 Blood Pressure Mean [Right Arm] 101 Blood Pressure Source Automatic Cuff Blood Pressure Source [Right Arm] Automatic Cuff Blood Pressure Position Supine Blood Pressure Position [Right Arm] Sitting 02 Sat by Pulse Oximetry 95 Oxygen Delivery Method Room Air Room Air - Lab Data Lab results reviewed: Yes: I reviewed the patient's lab results. Lab Results 06/26/21 15:55: WBC 8.8, RBC 4.72, Hgb 14.4, Hct 44.3, MCV 93.7, MCH 30.4, MCHC 32.5, RDW 13.7, Plt Count 218, MPV 8.1, Neut % (Auto) 79.9, Lymph % (Auto) 12.6, [place] % (Auto) 6.2, Eos % (Auto) 0.5, Baso % (Auto) 0.9, Neut # (Auto) 7.0, Lymph # (Auto) 1.1, [place] # (Auto) 0.5, Eos # (Auto) 0.0, Baso # (Auto) 0.1 06/26/21 15:55: Sodium 138, Potassium 3.7, Chloride 100, Carbon Dioxide 30, Anion Gap 11.7, BUN 12, Creatinine 0.80, Estimated Creat Clear 96, Estimated GFR 96, Est GFR ( Amer) 117, Glucose 109 H, Calcium 9.8, Total Bilirubin 0.7, AST 31, ALT 26, Alkaline Phosphatase 93, Troponin I < 0.01, Total Protein 7.5, Albumin 4.5, Globulin 3.0, Albumin/Globulin Ratio 1.5 06/26/21 16:09: POC Glucose 109 06/26/21 16:11: Urine Color Yellow, Urine Appearance Clear, Urine pH 7.0, Ur Specific [place] 1.020, Urine Protein Negative, Urine Glucose (UA) Negative, Urine Ketones Negative, Urine Blood Trace-i, Urine Nitrate Negative, Urine Bilirubin Negative, Urine Urobilinogen 0.2, Ur Leukocyte Esterase Negative, Urine RBC Occasional, Urine WBC None, Ur Squamous Epith Cells None, Urine Bacteria Trace 06/26/21 16:16: SARS-CoV-2 (PCR) Detected A, Influenza A Untype (PCR) Not detected, Influenza Type B (PCR) Not detected Result diagrams: 06/26/21 15:55 06/26/21 15:55 Orders (Tests/Meds): ED MEDICATIONS Discontinued Medications Generic Name Dose Route Start Last Admin Trade Name Carmela PRN Reason Stop Dose Admin Acetaminophen 1,000 mg 06/26/21 17:14 06/26/21 17:24 Acetaminophen 500mg Tab PO 06/26/21 17:15 1,000 mg ONCE ONE Administration Belladonna Alkaloids 60 ml 06/26/21 17:14 06/26/21 17:24 Gi Cocktail 60ml Udc PO 06/26/21 17:15 60 ml ONCE ONE Administration Ondansetron HCl 4 mg 06/26/21 16:13 06/26/21 17:24 Ondansetron 4mg/2
[2021-06-26 18:37] VITALS: BP 131/75; PULSE 71; RESP 18; TEMP 36.8; O2SAT 93
== END 2021-06-26 18:37 | disposition home or self-care (01) ==
PROVIDERS: Emergency Provider Student in an Organized Health Care Education/Training Program; PCP Emergency Medicine
DX: U07.1 COVID-19 (principal); I25.2 Old myocardial infarction; K21.9 Gastro-esophageal reflux disease without esophagitis; I10 Essential (primary) hypertension; E03.9 Hypothyroidism, unspecified; F41.8 Other specified anxiety disorders; J44.9 Chronic obstructive pulmonary disease, unspecified; E11.9 Type 2 diabetes mellitus without complications; E78.5 Hyperlipidemia, unspecified; Z87.891 Personal history of nicotine dependence; Z88.0 Allergy status to penicillin; Z88.2 Allergy status to sulfonamides; Z88.5 Allergy status to narcotic agent; Z79.899 Other long term (current) drug therapy
CPT/HCPCS: 71045; 80053; 81001; 82962; 84484; 85025; 93005; 96374; 99283; C9803; J2405; U0003; U0005

== ENCOUNTER 2021-09-01 16:49 | Emergency (ER) | payer MEDICARE, OTHER, SELFPAY ==
[2021-09-01 16:49] VITALS: BMI 30.4
--- NOTE | 2021-09-01 16:55 | XR_ITS ---
PROCEDURE INFORMATION: Exam: XR Chest Exam date and time: 09/01/2021 4:55 PM Age: 66 years old Clinical indication: Pain; Chest pressure; Additional info: Chest pain TECHNIQUE: Imaging protocol: XR of the chest. Views: 1 view. COMPARISON: CT ABDOMEN PELVIS W CON 10/12/2020 3:26 PM FINDINGS: Lungs: Unremarkable. No consolidation. Pleural spaces: Unremarkable. No pleural effusion. No pneumothorax. Heart/Mediastinum: Unremarkable. No cardiomegaly. Bones/joints: Unremarkable. IMPRESSION: No acute findings.
[2021-09-01 17:04] LABS: Basophils # 0.1 K/mm3 (0-0.2); Basophils % 0.6 % (0.1-2.0); Eosinophils # 0.1 K/mm3 (0.0-0.4); Eosinophils % 0.7 % (0.1-12.0); Hematocrit 44.7 % (42.0-52.0); Hemoglobin 14.1 g/dL (14.1-18.0); Lymphocytes # 0.8 K/mm3 (0.7-4.5); Mean Corpuscular HGB Conc 31.6 g/dL (31.8-35.4); Mean Corpuscular Volume 94.9 fl (80-94); Mean Platelet Volume 8.7 fl (7.4-10.4); Monocytes # 0.2 K/mm3 (0.1-1.0); Monocytes % 2.8 % (1.7-9.3); Neutrophils # 6.9 K/mm3 (1.8-7.8); Neutrophils % 85.8 % (37.0-80.0); Platelet Count 206 K/mm3 (142-424); Red Blood Count 4.71 M/mm3 (4.60-6.20); Red Cell Distribution Width 13.7 % (11.5-17.5)
--- NOTE | 2021-09-01 17:05 | CT_ITS ---
PROCEDURE INFORMATION: Exam: CT Abdomen And Pelvis With Contrast Exam date and time: 09/01/2021 5:05 PM Age: 66 years old Clinical indication: Nausea and vomiting; Additional info: Abd pain, n/v/d TECHNIQUE: Imaging protocol: Computed tomography of the abdomen and pelvis with contrast. Radiation optimization: All CT scans at this facility use at least one of these dose optimization techniques: automated exposure control; mA and/or kV adjustment per patient size (includes targeted exams where dose is matched to clinical indication); or iterative reconstruction. Contrast material: ISOVUE; Contrast volume: 75 ml; Contrast route: IV; COMPARISON: CT ABDOMEN PELVIS W CON 10/12/2020 3:26 PM FINDINGS: Liver: Normal. No mass. Gallbladder and bile ducts: Normal. No calcified stones. No ductal dilation. Pancreas: Normal. No ductal dilation. Spleen: Normal. No splenomegaly. Adrenal glands: Normal. No mass. Kidneys and ureters: 15 mm simple cyst left kidney. 2.1 cm simple cyst Right kidney. 3.4 cm simple cyst right kidney No follow-up imaging recommended . Stomach and bowel: No dilated loops of bowel. No bowel wall thickening Appendix: Surgical clips in the right colon consistent with prior appendectomy Intraperitoneal space: Unremarkable. No free air. No significant fluid collection. Vasculature: Unruptured infrarenal abdominal aortic aneurysm 4.5 cm. Lymph nodes: Unremarkable. No enlarged lymph nodes. Urinary bladder: Unremarkable as visualized. Reproductive: Unremarkable as visualized. Bones/joints: Unremarkable. No acute fracture. Soft tissues: Unremarkable. IMPRESSION: Unruptured infrarenal abdominal aortic aneurysm 4.5 cm. COMMENTS: Consistent with the [employer]'s Incidental Findings Committee white paper (J Am Janki Radiol 2018): Any incidental renal lesion less than 1 cm or classified as too small to characterize, or any incidental cystic renal lesion characterized as simple-appearing, is likely benign. No follow-up imaging is recommended for these lesions per consensus recommendations based on imaging criteria.
[2021-09-01 17:08] LABS: Chloride 106 mmol/L (98-107); Sodium 136 mmol/L (136-145)
[2021-09-01 17:09] LABS: Potassium 3.7 mmoL/L (3.5-5.1)
[2021-09-01 17:11] LABS: Alanine Aminotransferase 24 U/L (12-78); Albumin Level 4.2 g/dl (3.5-5.0); Albumin/Globulin Ratio 1.5 (1.1-1.8); Alkaline Phosphatase 111 U/L (38-126); Anion Gap 11.7 mEq/L (5-15); Aspartate Amino Transferase 29 U/L (17-59); Bilirubin,Total 1.1 mg/dl (0.2-1.3); Blood Urea Nitrogen 13 mg/dl (9-20); Carbon Dioxide 22 mmol/L (22.0-30.0); Creatinine Clearance Estimated 91 mL/min (50-200); Estimated Glomerular Filt Rate 96 ml/min (>60); GFR (African American) 116 ML/MIN (>60); Globulin 2.8 g/dL (1.3-3.2); MANUAL DIFFERENTIAL MANUAL DIFFERENTIAL (MANUAL DIFF)
[2021-09-01 17:12] LABS: Calcium 8.8 mg/dl (8.4-10.2); Glucose 117 mg/dl (74-100)
[2021-09-01 17:16] LABS: Lactic Acid 1.4 mmol/L (0.7-2.1)
[2021-09-01 17:36] LABS: Troponin I < 0.01 ng/ml (0.00-0.034)
--- NOTE | 2021-09-01 17:52 | HMH.EDGENADL ---
ED Disposition Clinical Impression: Viral syndrome Disposition: Home, Self-Care Condition on Discharge: Good Instructions: DI for Viral Syndrome Additional Instructions: Please follow up with your primary care physician in 2-3 days for further management. Please take zofran as prescribed. Please return to the ED for any concerning symptoms such as returning chest pain, difficulty breathing or any other concerns. Please take the PPI as prescribed for acid reflux and may also use over the counter maalox or mylanta for acute flares. Prescriptions: Omeprazole [Omeprazole 20mg Tab] 20 mg PO DAILY #30 tab Transmission Status: Received by [facility] Ondansetron [Zofran 4mg ODT] 4 mg PO TIDP PRN #30 tab PRN Reason: Nausea Transmission Status: Received by [facility] Referrals: Teo Dominguez MD [Primary Care Provider] - - Critical Care Critical Care Time: No Attestation: On 09/01/21, the high probability of a clinically significant, sudden or life threatening deterioration of the following system(s) required my full and direct attention, intervention and personal management. The time I documented below is in addition to time spent performing reported procedures but includes the following listed in this critical care notation. Medical Decision Making - Medical Records Medical records reviewed: Yes: I reviewed the patient's medical records. - Luis Felipe Inquiry Pt receiving controlled substance: No Vital Signs: 09/01/21 20:09 Temperature 98.4 F Temperature Source Oral Pulse Rate 82 Respiratory Rate 18 Blood Pressure 134/75 - Lab Data Lab results reviewed: Yes: I reviewed the patient's lab results. Lab Results 09/01/21 16:45: WBC 8.0, RBC 4.71, Hgb 14.1, Hct 44.7, MCV 94.9 H, MCH 30.0, MCHC 31.6 L, RDW 13.7, Plt Count 206, MPV 8.7, Neut % (Auto) 85.8 H, Lymph % (Auto) 10.0, [place] % (Auto) 2.8, Eos % (Auto) 0.7, Baso % (Auto) 0.6, Neut # (Auto) 6.9, Lymph # (Auto) 0.8, [place] # (Auto) 0.2, Eos # (Auto) 0.1, Baso # (Auto) 0.1, Total Counted 100, Neutrophils % (Manual) 83 H, Lymphocytes % (Manual) 9 L, Monocytes % (Manual) 5, Eosinophils % (Manual) 1, Basophils % (Manual) 2.0 H, Platelet Estimate Normal 09/01/21 16:45: Sodium 136, Potassium 3.7, Chloride 106, Carbon Dioxide 22, Anion Gap 11.7, BUN 13, Creatinine 0.80, Estimated Creat Clear 91, Estimated GFR 96, Est GFR ( Amer) 116, Glucose 117 H, Calcium 8.8, Total Bilirubin 1.1, AST 29, ALT 24, Alkaline Phosphatase 111, Troponin I < 0.01, Total Protein 7.0, Albumin 4.2, Globulin 2.8, Albumin/Globulin Ratio 1.5 09/01/21 16:45: Lactate 1.4 Result diagrams: 09/01/21 16:45 09/01/21 16:45 Orders (Tests/Meds): ED MEDICATIONS Discontinued Medications Generic Name Dose Route Start Last Admin Trade Name Freq PRN Reason Stop Dose Admin Acetaminophen 1,000 mg 09/01/21 19:23 09/01/21 19:34 Acetaminophen 500mg Tab PO 09/01/21 19:24 1,000 mg ONCE ONE Administration Belladonna Alkaloids 60 ml 09/01/21 19:33 09/01/21 19:34 Gi Cocktail 60ml Udc PO 09/01/21 19:34 60 ml ONCE ONE Administration Sodium Chloride 1,000 mls @ 999 mls/hr 09/01/21 17:00 09/01/21 16:58 Sod Chlor 0.9% 1000ml Bag IV 09/01/21 18:00 999 mls/hr .Q1H1M EZ Administration Iopamidol 75 ml 09/01/21 17:37 09/01/21 17:38 Iopamidol-370 (76%);100ml Bottle IV 09/01/21 17:38 75 ml ONCE ONE Administration Ondansetron HCl 4 mg 09/01/21 16:56 09/01/21 16:58 Ondansetron 4mg/2ml Vial IV 09/01/21 16:57 4 mg ONCE ONE Administration Sodium Chloride 10 ml 09/01/21 17:37 09/01/21 17:38 Sodium Chloride 0.9% 10ml Syr (Rad Only) IV 09/01/21 17:38 10 ml ONCE ONE Administration Medical Decision Narrative: Mr. Nolan is a 66 yo male w/ no signiicant PMH who presents to the ED for N/V and diarrhea and abd pain. Patient is afebrile and hemodynamically stbale on arrival, non toxic appearing. Patient has no clinical signs of dehydr
[2021-09-01 18:06] LABS: Eosinophils % 1 % (0-3); Lymphocytes % 9 % (10-50); Monocytes % 5 % (2-9); Neutrophils % 83 % (42-76); Platelet Estimate Normal; Total Cells Counted 100
--- NOTE | 2021-09-01 18:30 | PC.NURSE ---
dilaudid ordered not given due to allergies. not given per AB rn
--- NOTE | 2021-09-01 19:10 | PC.NURSE ---
pt daughter asked for something for his headache, then grandson called and asked if we could give him some tylenol for his headache. I went in to check on pt and he said he was soa and his chest was hurting, dr advised, repeat ekg done.
--- NOTE | 2021-09-01 19:14 | ECG_ITS ---
APPROVED REPORT Exam: Resting ECG HR:73 bpm ECG Measurements Heart Rate 73 AXES RI 169 P 71 QRSd 98 QRS -37 QT 397 T 44 QTc 423 Conclusion SINUS RHYTHM LEFT AXIS DEVIATION [QRS AXIS < -30] ABNORMAL ECG UNCONFIRMED REPORT Electronically signed by : Dominguez Juarez MD 09/01/2021 19:44:55
[2021-09-01 20:09] VITALS: BP 134/75; PULSE 82; RESP 18; TEMP 36.9; O2SAT 95
== END 2021-09-01 20:10 | disposition home or self-care (01) ==
PROVIDERS: Emergency Provider Student in an Organized Health Care Education/Training Program; PCP Emergency Medicine
DX: R94.31 Abnormal electrocardiogram [ECG] [EKG] (principal); B34.9 Viral infection, unspecified; M79.673 Pain in unspecified foot; D64.9 Anemia, unspecified; R11.2 Nausea with vomiting, unspecified; R19.7 Diarrhea, unspecified; I10 Essential (primary) hypertension; I25.119 Atherosclerotic heart disease of native coronary artery with unspecified angina pectoris; I25.2 Old myocardial infarction; E11.9 Type 2 diabetes mellitus without complications; E03.9 Hypothyroidism, unspecified; E78.5 Hyperlipidemia, unspecified; M19.90 Unspecified osteoarthritis, unspecified site; J44.9 Chronic obstructive pulmonary disease, unspecified; F32.A Depression, unspecified; F41.9 Anxiety disorder, unspecified; Z79.51 Long term (current) use of inhaled steroids; Z79.82 Long term (current) use of aspirin; Z79.84 Long term (current) use of oral hypoglycemic drugs; Z79.899 Other long term (current) drug therapy; Z88.0 Allergy status to penicillin; Z88.2 Allergy status to sulfonamides; Z88.5 Allergy status to narcotic agent; Z88.6 Allergy status to analgesic agent; Z88.8 Allergy status to other drugs, medicaments and biological substances; Z91.040 Latex allergy status; Z95.5 Presence of coronary angioplasty implant and graft; Z86.73 Personal history of transient ischemic attack (TIA), and cerebral infarction without residual deficits; Z87.891 Personal history of nicotine dependence
CPT/HCPCS: 71045; 74177; 80053; 83605; 84484; 85007; 85025; 93005; 96365; 96374; 96375; 99285; J2405; Q9967

== ENCOUNTER 2021-11-19 14:25 | Emergency (ER) | payer MEDICARE, OTHER, SELFPAY ==
--- NOTE | 2021-11-19 14:24 | ECG_ITS ---
APPROVED REPORT Exam: Resting ECG HR:65 bpm ECG Measurements Heart Rate 65 AXES OH 175 P 50 QRSd 100 QRS -20 QT 408 T 49 QTc 419 Conclusion SINUS RHYTHM NORMAL ECG UNCONFIRMED REPORT Electronically signed by : Dominguez Juarez MD 11/21/2021 10:33:04
[2021-11-19 14:25] VITALS: BP 121/71; PULSE 70; PULSE 73; RESP 12; RESP 13; TEMP 36.8; O2SAT 96; BMI 31.4
--- NOTE | 2021-11-19 14:28 | PC.NURSE ---
ED MD at
--- NOTE | 2021-11-19 14:49 | CT_ITS ---
FINAL REPORT TECHNIQUE: Thin section axial images were obtained from the lung apices through the upper abdomen without contrast. This study was performed with techniques to keep radiation doses as low as reasonably achievable (ALARA). Individualized dose reduction techniques using automated exposure control or adjustment of mA and/or kV according to the patient's size were employed. CLINICAL HISTORY: .chest pain FINDINGS: There is no mediastinal, hilar, or axillary lymphadenopathy. There is no pleural or pericardial effusion. Note is made of emphysema. The lungs are otherwise clear. There is no acute osseous abnormality. IMPRESSION: No acute intrathoracic abnormality. Reviewed, Interpreted and Dictated by Saumya Tinoco MD Transcribed by Dyan Villavicencio Authenticated by Saumya Tinoco MD on 11/19/2021 04:21:[address] [facility]
--- NOTE | 2021-11-19 14:49 | CT_ITS ---
FINAL REPORT TECHNIQUE: Thin section axial images were obtained from the lung bases to the pubic symphysis without IV contrast. This study was performed with techniques to keep radiation doses as low as reasonably achievable (ALARA). Individualized dose reduction techniques using automated exposure control or adjustment of mA and/or kV according to the patient's size were employed. CLINICAL HISTORY: .abdominal pain COMPARISON: 09/01/2021 FINDINGS: There are no renal or ureteral stones. There is no hydronephrosis or perinephric stranding. There is an infrarenal abdominal aortic aneurysm measuring 4.9 cm which is slightly increased since prior where it measured 4.6 cm. Hypodense right renal lesions are stable, likely cysts. The remaining unenhanced solid abdominal organs are unremarkable. There is no evidence of small bowel obstruction. The appendix is surgically absent. The prostate is mildly enlarged. There are small fat containing bilateral inguinal hernias. GI tract is without acute abnormality. There is no lymphadenopathy or ascites. No acute osseous abnormality is identified. IMPRESSION: No acute intra-abdominal or intrapelvic process. Slight increase in size in infrarenal abdominal aortic aneurysm. Reviewed, Interpreted and Dictated by Saumya Tinoco MD Transcribed by Dyan Villavicencio Authenticated by Saumya Tinoco MD on 11/19/2021 04:20:58 PM [facility]
[2021-11-19 14:54] VITALS: BP 118/77; PULSE 68; RESP 16; O2SAT 95
--- NOTE | 2021-11-19 14:58 | PC.NURSE ---
patient to radiology with engineering tech
--- NOTE | 2021-11-19 15:11 | PC.NURSE ---
patient back from radiology and in restroom at this time
--- NOTE | 2021-11-19 15:13 | PC.NURSE ---
patient returned from restroom
[2021-11-19 15:21] LABS: Microscopic, Urine URINE MICROSCOPIC (MICROSCOPIC)
[2021-11-19 15:24] VITALS: BP 125/71; PULSE 62; RESP 18; O2SAT 95
[2021-11-19 15:25] LABS: Appearance,Urine CLEAR (Clear); Bilirubin,Urine Negative (Negative); Blood, Urine 1+ (Negative); Color,Urine YELLOW (Yellow); Glucose,Urine (UA) Negative (Negative); Ketones,Urine Negative (Negative); Leukocyte Esterase,Urine Negative (Negative); Nitrate,Urine Negative (Negative); Protein,Urine Negative (Negative); Urobilinogen,Urine 0.2 EU/dl (0.2)
[2021-11-19 15:38] LABS: Bacteria,Urine Trace /lpf; RBC,Urine Occasional #/hpf (0-3)
[2021-11-19 15:45] LABS: Chloride 104 mmol/L (98-107); Potassium 3.9 mmoL/L (3.5-5.1); Sodium 139 mmol/L (136-145)
[2021-11-19 15:47] LABS: Blood Urea Nitrogen 12 mg/dl (9-20); Creatinine Clearance Estimated 94 mL/min (50-200); Estimated Glomerular Filt Rate 84 ml/min (>60); GFR (African American) 102 ML/MIN (>60)
[2021-11-19 15:48] LABS: Alanine Aminotransferase 24 U/L (12-78); Albumin Level 4.6 g/dl (3.5-5.0); Albumin/Globulin Ratio 1.7 (1.1-1.8); Alkaline Phosphatase 101 U/L (38-126); Anion Gap 8.9 mEq/L (5-15); Aspartate Amino Transferase 30 U/L (17-59); Bilirubin,Total 0.7 mg/dl (0.2-1.3); Calcium 9.6 mg/dl (8.4-10.2); Carbon Dioxide 30 mmol/L (22.0-30.0); Globulin 2.7 g/dL (1.3-3.2); Glucose 115 mg/dl (74-100); Lipase 52 U/L (23-300); Total Protein,Serum 7.3 g/dl (6.3-8.2)
[2021-11-19 15:49] LABS: Basophils # 0.1 K/mm3 (0-0.2); Basophils % 1.4 % (0.1-2.0); Eosinophils # 0.1 K/mm3 (0.0-0.4); Eosinophils % 2.3 % (0.1-12.0); Hematocrit 42.1 % (42.0-52.0); Hemoglobin 14.1 g/dL (14.1-18.0); Lactic Acid 0.8 mmol/L (0.7-2.1); Lymphocytes # 1.4 K/mm3 (0.7-4.5); Lymphocytes % 24.4 % (10-50); Mean Corpuscular HGB Conc 33.6 g/dL (31.8-35.4); Mean Corpuscular Hemoglobin 30.8 pg (27.0-31.2); Mean Corpuscular Volume 91.5 fl (80-94); Mean Platelet Volume 8.4 fl (7.4-10.4); Monocytes # 0.4 K/mm3 (0.1-1.0); Monocytes % 6.4 % (1.7-9.3); Neutrophils # 3.8 K/mm3 (1.8-7.8); Neutrophils % 65.5 % (37.0-80.0); Platelet Count 222 K/mm3 (142-424); Red Cell Distribution Width 13.7 % (11.5-17.5); White Blood Count 5.7 K/mm3 (4.8-10.8)
[2021-11-19 15:54] VITALS: BP 120/72; PULSE 62; RESP 16; O2SAT 95
[2021-11-19 16:04] LABS: Troponin I < 0.01 ng/ml (0.00-0.034)
--- NOTE | 2021-11-19 16:27 | HMH.EDGENADL ---
ED Disposition Clinical Impression: Nonspecific chest pain, Abdominal aortic aneurysm Disposition: Home, Self-Care Condition on Discharge: Good Instructions: Aortic Aneurysm, DI for Atypical Chest Pain Additional Instructions: Please follow-up with your primary care physician in 1 to 2 days for further management. Please also discuss with your primary care physician in the next 1 to 2 days regarding further management and surveillance of your abdominal aortic aneurysm. Please take Tylenol and ibuprofen for pain control. Please return if symptoms worsen or recur. Referrals: Provider,Referral, [Primary Care Provider] - - Critical Care Critical Care Time: No Attestation: On 11/19/21, the high probability of a clinically significant, sudden or life threatening deterioration of the following system(s) required my full and direct attention, intervention and personal management. The time I documented below is in addition to time spent performing reported procedures but includes the following listed in this critical care notation. Medical Decision Making - Medical Records Medical records reviewed: Yes: I reviewed the patient's medical records. - Luis Felipe Inquiry Pt receiving controlled substance: No Vital Signs: 11/19/21 14:25 11/19/21 14:54 11/19/21 15:24 Temperature 98.3 F Temperature Source Oral Pulse Rate 73 68 62 Pulse Rate [Right Radial] 70 Respiratory Rate 13 16 18 Blood Pressure 121/71 118/77 125/71 Blood Pressure [Right Arm] 121/71 Blood Pressure Mean 86 92 Blood Pressure Mean [Right Arm] 87 Blood Pressure Source Automatic Cuff Blood Pressure Source [Right Arm] Automatic Cuff Blood Pressure Position Sitting Blood Pressure Position [Right Arm] Sitting 02 Sat by Pulse Oximetry 96 95 95 Oxygen Delivery Method Room Air Room Air Room Air 11/19/21 15:54 11/19/21 16:57 Temperature 98.2 F Temperature Source Oral Pulse Rate 62 60 Pulse Rate [Right Radial] Respiratory Rate 16 17 Blood Pressure 120/72 118/70 Blood Pressure [Right Arm] Blood Pressure Mean 88 Blood Pressure Mean [Right Arm] Blood Pressure Source Blood Pressure Source [Right Arm] Blood Pressure Position Blood Pressure Position [Right Arm] 02 Sat by Pulse Oximetry 95 Oxygen Delivery Method Room Air Room Air - Lab Data Lab results reviewed: Yes: I reviewed the patient's lab results. Lab Results 11/19/21 15:15: Urine Color Yellow, Urine Appearance Clear, Urine pH 5.0, Ur Specific [place] 1.020, Urine Protein Negative, Urine Glucose (UA) Negative, Urine Ketones Negative, Urine Blood 1+, Urine Nitrate Negative, Urine Bilirubin Negative, Urine Urobilinogen 0.2, Ur Leukocyte Esterase Negative, Urine RBC Occasional, Urine WBC None, Ur Squamous Epith Cells None, Urine Bacteria Trace 11/19/21 15:20: WBC 5.7, RBC 4.60, Hgb 14.1, Hct 42.1, MCV 91.5, MCH 30.8, MCHC 33.6, RDW 13.7, Plt Count 222, MPV 8.4, Neut % (Auto) 65.5, Lymph % (Auto) 24.4, [place] % (Auto) 6.4, Eos % (Auto) 2.3, Baso % (Auto) 1.4, Neut # (Auto) 3.8, Lymph # (Auto) 1.4, [place] # (Auto) 0.4, Eos # (Auto) 0.1, Baso # (Auto) 0.1 11/19/21 15:20: Sodium 139, Potassium 3.9, Chloride 104, Carbon Dioxide 30, Anion Gap 8.9, BUN 12, Creatinine 0.90, Estimated Creat Clear 94, Estimated GFR 84, Est GFR ( Amer) 102, Glucose 115 H, Calcium 9.6, Total Bilirubin 0.7, AST 30, ALT 24, Alkaline Phosphatase 101, Troponin I < 0.01, Total Protein 7.3, Albumin 4.6, Globulin 2.7, Albumin/Globulin Ratio 1.7, Lipase 52 11/19/21 15:20: Lactate 0.8 Result diagrams: 11/19/21 15:20 11/19/21 15:20 Orders (Tests/Meds): ED MEDICATIONS Discontinued Medications Generic Name Dose Route Start Last Admin Trade Name Deandreq PRN Reason Stop Dose Admin Acetaminophen 1,000 mg 11/19/21 15:26 11/19/21 15:27 Acetaminophen 500mg Tab PO 11/19/21 15:27 1,000 mg ONCE ONE Administration Medical Decision Narrative: Mr Nolan is a 66 yo male w/ PMH for aortic ane
[2021-11-19 16:57] VITALS: BP 118/70; PULSE 60; RESP 17; TEMP 36.8; O2SAT 96
== END 2021-11-19 16:59 | disposition home or self-care (01) ==
PROVIDERS: Emergency Provider Student in an Organized Health Care Education/Training Program
DX: R07.89 Other chest pain (principal); I71.4 Abdominal aortic aneurysm, without rupture; F41.8 Other specified anxiety disorders; I10 Essential (primary) hypertension; E78.5 Hyperlipidemia, unspecified; I25.10 Atherosclerotic heart disease of native coronary artery without angina pectoris; E11.9 Type 2 diabetes mellitus without complications; J44.9 Chronic obstructive pulmonary disease, unspecified; Z87.891 Personal history of nicotine dependence; Z88.0 Allergy status to penicillin; Z88.2 Allergy status to sulfonamides; Z79.899 Other long term (current) drug therapy
CPT/HCPCS: 71250; 74176; 80053; 81001; 83605; 83690; 84484; 85025; 93005; 99284

== ENCOUNTER → 2021-12-03 11:02 | Outpatient (CLI) | payer MEDICARE, OTHER, SELFPAY ==
--- NOTE | 2021-12-03 11:05 | CA_ITS ---
APPROVED REPORT EXAM: Comprehensive 2D, Doppler, and color-flow Echocardiogram Commercial Stripper: Carleen Baca RT(R) Ht: 144 ft 8 in Wt: 205lbs BSA: 21.63 BP: 144/81 mmHg Indications: SOA, CAD, AAA, COPD, ex smoker, HTN, hyperlipidemia 2D Dimensions LVOT 2.10 cm (M/F) 1.5-2.5 LVEF (Sorenson's) 57.90 % M: 52 - 72 LV Volume 115.30 mL M: 62 - 150 LV Volume Index 5.32 mL/m2 M: 34 - 74 LA Volume 45.60 mL LA Volume Index 2.10 mL/m2 (M/F) 16-34 M-Mode Dimensions RVDd 2.49 cm (0.9-2.6) LA Diam 2.78 cm (1.9-4.0) LVDd 5.87 cm (3.5-5.7) Ao Diam 3.44 cm (2.0-3.7) LVDs 4.70 cm (3.5-5.7) IVSd 0.75 cm (0.6-1.1) PWd 1.08 cm (0.6-1.1) EF (Teich) 40.20% FS 19.90% EDV (Teich) 171.20 mL ESV (Teich) 102.40 mL LV Diastology E Decel Time 383.00 (160-240 msec) E/A Ratio 0.67 MED E' 8.40 (< 7 cm/sec) E'/MED E' Ratio 5.90 (>14) LAT E' 9.30 (<10 cm/sec) E/LAT E' Ratio 5.33 (>14) Mitral Valve MV A Velocity 74.00 (40-130 cm/s) E/A Ratio 0.67 MV Decel. Time 383.00 (160-240 ms) Left Ventricle Left atrium is mildly enlarged, left ventricle is normal size, mild concentric left ventricular hypertrophy, estimated ejection fraction 55% with no regional wall motion abnormality, grade 1 diastolic dysfunction seen without tissue Doppler evidence of raise left atrial pressure. Right Ventricle Right atrium and right ventricle are normal size and contractility. Aortic Valve Aortic valve is minimally thickened and fibrosed there is no aortic stenosis or aortic insufficiency. Mitral Valve Mitral valve grossly normal, there is trace mitral regurgitation Tricuspid Valve Tricuspid valve grossly normal, there is trace tricuspid regurgitation, tricuspid regurgitation jet velocity is inadequate for calculation of the right ventricular systolic pressure. Pulmonic Valve Pulmonic valve is poorly visualized. Great Vessels Aortic root is normal size. Inferior vena cava is poorly visualized. Pericardium No significant pericardial effusion noted. Conclusion 1. Mild biatrial enlargement, normal left ventricular size, mild concentric left ventricle hypertrophy, estimated ejection fraction 55% with no regional wall motion abnormality, grade 1 diastolic dysfunction seen without tissue Doppler evidence of raise left atrial pressure. 2. Mildly enlarged right ventricle with normal contractility. 3. Trace mitral and tricuspid regurgitation. 4. No significant pericardial effusion. 5. Inferior vena cava is poorly visualized. Electronically signed by : Star Waterman MD 12/03/2021 12:37:36
== END ==
PROVIDERS: PCP Internal Medicine; Visit Provider Nurse Practitioner Family
DX: E11.69 Type 2 diabetes mellitus with other specified complication (principal); E78.2 Mixed hyperlipidemia; I11.9 Hypertensive heart disease without heart failure; I25.118 Atherosclerotic heart disease of native coronary artery with other forms of angina pectoris; I71.4 Abdominal aortic aneurysm, without rupture; R06.02 Shortness of breath; R07.9 Chest pain, unspecified; R53.83 Other fatigue; Z87.891 Personal history of nicotine dependence; Z95.5 Presence of coronary angioplasty implant and graft; Z79.84 Long term (current) use of oral hypoglycemic drugs
CPT/HCPCS: 93306

== ENCOUNTER → 2021-12-16 14:36 | Outpatient (CLI) | payer MEDICARE, OTHER, SELFPAY | PROVIDERS: PCP Emergency Medicine | DX: Z01.812 Encounter for preprocedural laboratory examination (principal); Z20.822 Contact with and (suspected) exposure to COVID-19 | CPT/HCPCS: C9803; U0003; U0005 ==

== ENCOUNTER 2022-01-14 14:58 | Emergency (ER) | payer MEDICARE, OTHER, SELFPAY ==
[2022-01-14] VITALS (8 sets, daily range): BP systolic 124–159; BP diastolic 76–95; PULSE 50–69; RESP 16–18; TEMP 36.9; O2SAT 94–99; BMI 31.1
--- NOTE | 2022-01-14 14:55 | ECG_ITS ---
APPROVED REPORT Exam: Resting ECG HR:57 bpm ECG Measurements Heart Rate 57 AXES MD 177 P 37 QRSd 101 QRS -26 QT 435 T 43 QTc 429 Conclusion SINUS BRADYCARDIA BORDERLINE LEFT AXIS DEVIATION [QRS AXIS < -20] BORDERLINE ECG UNCONFIRMED REPORT Electronically signed by : Dominguez Juarez MD 01/14/2022 21:00:27
--- NOTE | 2022-01-14 15:25 | XR_ITS ---
FINAL REPORT CLINICAL HISTORY: cough COMPARISON: 09/01/2021 FINDINGS: SINGLE-VIEW CHEST The heart size is normal. The mediastinum is normal. The lungs are clear. There is no pneumothorax. IMPRESSION: No acute cardiopulmonary process. Reviewed, Interpreted and Dictated by Alex Dwyer III, MD Transcribed by Dyan Villavicencio Authenticated and [facility]
[2022-01-14 15:28] LABS: Chloride 105 mmol/L (98-107); Potassium 4.2 mmoL/L (3.5-5.1); Sodium 138 mmol/L (136-145)
[2022-01-14 15:29] LABS: Basophils % 0.7 % (0.1-2.0); Eosinophils # 0.1 K/mm3 (0.0-0.4); Eosinophils % 1.1 % (0.1-12.0); Hematocrit 37.8 % (42.0-52.0); Hemoglobin 12.7 g/dL (14.1-18.0); Lymphocytes # 1.8 K/mm3 (0.7-4.5); Lymphocytes % 27.5 % (10-50); Mean Corpuscular HGB Conc 33.5 g/dL (31.8-35.4); Mean Corpuscular Hemoglobin 29.5 pg (27.0-31.2); Mean Platelet Volume 7.1 fl (7.4-10.4); Monocytes # 0.4 K/mm3 (0.1-1.0); Monocytes % 6.3 % (1.7-9.3); Neutrophils # 4.3 K/mm3 (1.8-7.8); Neutrophils % 64.5 % (37.0-80.0); Platelet Count 242 K/mm3 (142-424); Red Cell Distribution Width 13.3 % (11.5-17.5); White Blood Count 6.7 K/mm3 (4.8-10.8)
[2022-01-14 15:31] LABS: Anion Gap 10.2 mEq/L (5-15); Blood Urea Nitrogen 13 mg/dl (9-20); Carbon Dioxide 27 mmol/L (22.0-30.0); Creatinine Clearance Estimated 93 mL/min (50-200); Estimated Glomerular Filt Rate 84 ml/min (>60); GFR (African American) 102 ML/MIN (>60)
[2022-01-14 15:32] LABS: Calcium 9.7 mg/dl (8.4-10.2); Glucose 128 mg/dl (74-100)
[2022-01-14 15:46] LABS: Troponin I < 0.01 ng/ml (0.00-0.034)
[2022-01-14 15:47] LABS: NT Pro Brain Natriuretic Pep. 122 pg/mL (0-125)
--- NOTE | 2022-01-14 15:55 | PC.NURSE ---
rounded on pt at this time, pt states no needs at this time. will continue to monitor
--- NOTE | 2022-01-14 16:41 | PC.NURSE ---
Friend came to [facility] to let us know patient was feeling sick and nauseated again; ER and GARY Her notified.
--- NOTE | 2022-01-14 16:50 | HMH.EDCP ---
ED Disposition Clinical Impression: Atypical chest pain Disposition: Home, Self-Care Condition on Discharge: Good Instructions: DI for Atypical Chest Pain Referrals: Provider,Referral, [Primary Care Provider] - - Critical Care Critical Care Time: No Attestation: On 01/14/22, the high probability of a clinically significant, sudden or life threatening deterioration of the following system(s) required my full and direct attention, intervention and personal management. The time I documented below is in addition to time spent performing reported procedures but includes the following listed in this critical care notation. Medical Decision Making - Medical Records Medical records reviewed: Yes: I reviewed the patient's medical records. - Luis Felipe Inquiry Pt receiving controlled substance: No Vital Signs: 01/14/22 14:58 01/14/22 15:01 01/14/22 15:30 Temperature 98.4 F Temperature Source Oral Pulse Rate 65 60 Pulse Rate [Left Radial] 69 Respiratory Rate 18 16 Blood Pressure 152/92 H 146/95 H Blood Pressure [Right Arm] 154/94 H Blood Pressure Mean 112 110 Blood Pressure Mean [Right Arm] 114 Blood Pressure Source [Right Arm] Automatic Cuff Blood Pressure Position [Right Arm] Sitting 02 Sat by Pulse Oximetry 98 99 96 Oxygen Delivery Method Room Air Room Air 01/14/22 16:00 01/14/22 16:31 Temperature Temperature Source Pulse Rate 58 L 56 L Pulse Rate [Left Radial] Respiratory Rate Blood Pressure 124/76 159/92 H Blood Pressure [Right Arm] Blood Pressure Mean 92 114 Blood Pressure Mean [Right Arm] Blood Pressure Source [Right Arm] Blood Pressure Position [Right Arm] 02 Sat by Pulse Oximetry 96 94 L Oxygen Delivery Method - Lab Data Lab Results 01/14/22 15:00: WBC 6.7, RBC 4.30 L, Hgb 12.7 L, Hct 37.8 L, MCV 88.0, MCH 29.5, MCHC 33.5, RDW 13.3, Plt Count 242, MPV 7.1 L, Neut % (Auto) 64.5, Lymph % (Auto) 27.5, [place] % (Auto) 6.3, Eos % (Auto) 1.1, Baso % (Auto) 0.7, Neut # (Auto) 4.3, Lymph # (Auto) 1.8, [place] # (Auto) 0.4, Eos # (Auto) 0.1, Baso # (Auto) 0.0 01/14/22 15:00: Sodium 138, Potassium 4.2, Chloride 105, Carbon Dioxide 27, Anion Gap 10.2, BUN 13, Creatinine 0.90, Estimated Creat Clear 93, Estimated GFR 84, Est GFR ( Amer) 102, Glucose 128 H, Calcium 9.7, Troponin I < 0.01 01/14/22 15:00: NT-Pro-B Natriuret Pep 122 Result diagrams: 01/14/22 15:00 01/14/22 15:00 Orders (Tests/Meds): ED MEDICATIONS Generic Name Dose Route Start Last Admin Trade Name Freq PRN Reason Stop Dose Admin Sodium Chloride 10 ml 01/14/22 15:12 Sodium Chloride 0.9% 10ml Flush Syringe IV 02/13/22 15:11 NEEDED PRN Maintain IV Site Discontinued Medications Generic Name Dose Route Start Last Admin Trade Name Freq PRN Reason Stop Dose Admin Hydrocodone Bitart/Acetaminophen 1 tab 01/14/22 16:52 01/14/22 16:55 Apap/Hydrocodone 325mg/7.5mg Tab PO 01/14/22 16:53 1 tab ONCE ONE Administration Ondansetron HCl 4 mg 01/14/22 15:12 01/14/22 15:13 Ondansetron 4mg/2ml Vial IV 01/14/22 15:13 4 mg ONCE ONE Administration Promethazine HCl 25 mg 01/14/22 16:42 01/14/22 16:47 Promethazine Hcl 25mg/Ml 1ml Vial IV 01/14/22 16:43 25 mg ONCE ONE Administration Sodium Chloride 25 ml 01/14/22 16:42 01/14/22 16:46 Sodium Chloride 0.9% 25ml Bag IV 01/14/22 16:43 25 ml ONCE ONE Administration ORDERS Category Date Time Status Troponin I Q3H Lab 01/14/22 18:15 Ordered Troponin I Q3H Lab 01/14/22 21:15 Ordered - Radiology Data #1 Image(s): Chest Image Reviewed: Yes I reviewed the patient's radiology results, Yes I reviewed the patient's radiology image, Yes I have reviewed radiologist's interpretation Preliminary Findings: Normal/NAD - ECG Data Tracing #1 I reviewed this ECG and interpreted as documented below: Sinus bradycardia rate of 57 bpm, [place] interval 170 ms, normal QTC. Sinus bradycardia with
--- NOTE | 2022-01-14 16:57 | PC.NURSE ---
PT MEDICATED FOR PAIN AND NAUSEA. NO FURTHER NEEDS AT THIS TIME. FAMILY AT BEDSIDE
== END 2022-01-14 17:43 | disposition home or self-care (01) ==
PROVIDERS: Emergency Provider Emergency Medicine
DX: R07.89 Other chest pain (principal); R10.32 Left lower quadrant pain; Z88.0 Allergy status to penicillin; Z88.2 Allergy status to sulfonamides; Z91.040 Latex allergy status; J44.9 Chronic obstructive pulmonary disease, unspecified; E11.9 Type 2 diabetes mellitus without complications; I10 Essential (primary) hypertension; E78.5 Hyperlipidemia, unspecified; I25.2 Old myocardial infarction; I25.10 Atherosclerotic heart disease of native coronary artery without angina pectoris; F41.9 Anxiety disorder, unspecified
CPT/HCPCS: 71045; 80048; 83880; 84484; 85025; 93005; 96374; 96375; 99284; J2405

== ENCOUNTER → 2022-02-13 11:41 | Outpatient (CLI) | payer MEDICARE, OTHER, SELFPAY ==
[2022-02-13 12:34] LABS: Hemoglobin A1C 5.4 % (4.0-6.0)
== END ==
PROVIDERS: PCP Emergency Medicine; Visit Provider Nurse Practitioner Family
DX: E11.9 Type 2 diabetes mellitus without complications (principal); Z79.84 Long term (current) use of oral hypoglycemic drugs
CPT/HCPCS: 36415; 83036

== ENCOUNTER → 2022-04-08 11:39 | Outpatient (CLI) | payer MEDICARE, OTHER, SELFPAY | PROVIDERS: PCP Emergency Medicine; Visit Provider Nurse Practitioner Family | DX: R07.9 Chest pain, unspecified (principal) ==

== ENCOUNTER 2022-04-08 12:13 | Emergency (ER) | payer MEDICARE, OTHER, SELFPAY ==
[2022-04-08] VITALS (10 sets, daily range): BP systolic 132–165; BP diastolic 82–118; PULSE 48–58; RESP 15–19; TEMP 36.8; O2SAT 95–97; BMI 28.5
--- NOTE | 2022-04-08 12:13 | ECG_ITS ---
APPROVED REPORT Exam: Resting ECG HR:51 bpm ECG Measurements Heart Rate 51 AXES VT 189 P 53 QRSd 97 QRS -8 QT 430 T 20 QTc 407 Conclusion SINUS BRADYCARDIA BORDERLINE ECG UNCONFIRMED REPORT Electronically signed by : Dominguez Juarez MD 04/08/2022 13:55:56
--- NOTE | 2022-04-08 12:31 | XR_ITS ---
FINAL REPORT CLINICAL HISTORY: chest pain COMPARISON: January 14, 2022 FINDINGS: A single portable view of the chest was obtained. The heart size and pulmonary vascularity are within normal limits. The mediastinum is within normal limits. No acute pulmonary abnormality is identified. The bony thorax is intact. IMPRESSION: No active cardiopulmonary disease. Reviewed, Interpreted and Dictated by Alex Dwyer III, MD Transcribed by Clair De Santiago Authenticated and [facility]
[2022-04-08 12:40] LABS: Basophils % 0.6 % (0.1-2.0); Eosinophils # 0.1 K/mm3 (0.0-0.4); Eosinophils % 1.2 % (0.1-12.0); Hematocrit 40.8 % (42.0-52.0); Hemoglobin 12.8 g/dL (14.1-18.0); Lymphocytes % 29.3 % (10-50); Mean Corpuscular HGB Conc 31.3 g/dL (31.8-35.4); Mean Corpuscular Hemoglobin 29.7 pg (27.0-31.2); Mean Corpuscular Volume 95.1 fl (80-94); Mean Platelet Volume 7.4 fl (7.4-10.4); Monocytes # 0.4 K/mm3 (0.1-1.0); Monocytes % 5.2 % (1.7-9.3); Neutrophils # 4.3 K/mm3 (1.8-7.8); Neutrophils % 63.6 % (37.0-80.0); Platelet Count 220 K/mm3 (142-424); Red Blood Count 4.29 M/mm3 (4.60-6.20); Red Cell Distribution Width 13.5 % (11.5-17.5); White Blood Count 6.8 K/mm3 (4.8-10.8)
--- NOTE | 2022-04-08 12:41 | PC.NURSE ---
IV established and blood sent to the lab
--- NOTE | 2022-04-08 12:45 | HMH.EDGENADL ---
Discharge Plan Disposition Patient Disposition: Home, Self-Care Condition: Good Chief Complaint: Chest Pain Prescriptions Prescriptions: No Action bupropion HCl 75 mg tablet 75 mg PO BID Qty: 60 3RF aspirin 81 mg tablet,delayed release (DR/EC) 81 mg PO DAILY Qty: 60 3RF alfuzosin 10 mg tablet extended release 24 hr 10 mg PO DAILY Qty: 60 3RF albuterol sulfate 90 mcg/actuation HFA aerosol inhaler 2 puff INHALATION Q4H Qty: 8.5 3RF ranolazine [Ranexa] 500 mg tablet extended release 12 hr 500 mg PO BID Qty: 60 5RF lorazepam 0.5 mg tablet 0.5 mg PO BID PRN (Reason: anxiety) Qty: 60 2RF sildenafil (pulm.hypertension) 20 mg tablet 20 mg PO DAILY PRN (Reason: sexual activity) Qty: 30 5RF Rx Instructions: administer doses at least 4-6 hours apart polyethylene glycol 3350 17 gram powder in packet 17 g PO DAILYP PRN (Reason: constipation) Qty: 30 4RF Rx Instructions: Take 3 packets on day1 for cleanout (DME) lancets 30 gauge misc See Rx Instructions .ROUTE .MEDSUPPLY Qty: 100 2RF Rx Instructions: As directed (DME) Blood Glucose Test Strip See Rx Instructions .ROUTE .MEDSUPPLY Qty: 50 4RF Rx Instructions: As directed (DME) blood-glucose meter [Blood Glucose Monitoring] Kit See Rx Instructions .ROUTE .MEDSUPPLY Qty: 1 0RF Rx Instructions: BID Vraylar 1.5 mg capsule 1.5 mg PO DAILY Qty: 30 2RF urxynawu-syxbyjpger-dexemlyns 3.5-400-10,000 it-frmr-baiv/g ointment 1 applic OPHTHALMIC QID 10 Days Qty: 3.5 0RF cetirizine [Zyrtec] 10 mg tablet 10 mg PO DAILY PRN (Reason: allergy symptoms) Qty: 30 3RF fluticasone propionate [Flonase Allergy Relief] 50 mcg/actuation spray,suspension 1 spray INTRANASAL DAILY Qty: 16 2RF Rx Instructions: administer into each nostril pantoprazole [Protonix] 40 mg tablet,delayed release (DR/EC) 40 mg PO BID Qty: 60 3RF nitroglycerin 0.4 mg tablet, sublingual 0.4 mg SL Q5M PRN (Reason: chest pain) Qty: 25 0RF Rx Instructions: do not exceed 3 doses per episode cholecalciferol (vitamin D3) 125 mcg (5,000 unit) tablet 125 mcg PO DAILY Qty: 30 3RF atorvastatin 40 mg tablet See Rx Instructions .ROUTE .COMPLEX Qty: 90 1RF Dose Instruction: TAKE ONE TABLET BY MOUTH EVERY NIGHT AT BEDTIME FOR CHOLESTEROL Rx Instructions: TAKE ONE TABLET BY MOUTH EVERY NIGHT AT BEDTIME FOR CHOLESTEROL ondansetron HCl 4 mg tablet See Rx Instructions .ROUTE .COMPLEX Qty: 28 0RF Dose Instruction: TAKE 1 TABLET BY MOUTH 4 TIMES DAILY NEEDED FOR NAUSEA AND VOMITING Rx Instructions: TAKE 1 TABLET BY MOUTH 4 TIMES DAILY NEEDED FOR NAUSEA AND VOMITING losartan 50 mg tablet 50 mg PO DAILY Qty: 30 2RF levothyroxine 75 mcg tablet See Rx Instructions .ROUTE .COMPLEX Qty: 90 2RF Dose Instruction: TAKE ONE TABLET BY MOUTH EVERY DAY FOR THYROID Rx Instructions: TAKE ONE TABLET BY MOUTH EVERY DAY FOR THYROID hydrochlorothiazide 12.5 mg capsule See Rx Instructions .ROUTE .COMPLEX Qty: 90 0RF Dose Instruction: TAKE 1 CAPSULE BY MOUTH ONCE DAILY FOR FLUID Rx Instructions: TAKE 1 CAPSULE BY MOUTH ONCE DAILY FOR FLUID metformin 500 mg tablet See Rx Instructions .ROUTE .COMPLEX Qty: 60 0RF Dose Instruction: TAKE 1 TABLET BY MOUTH ONCE DAILY FOR SUGAR Rx Instructions: TAKE 1 TABLET BY MOUTH ONCE DAILY FOR SUGAR methocarbamol 500 mg tablet See Rx Instructions .ROUTE .COMPLEX Qty: 30 0RF Dose Instruction: TAKE 1 TABLET BY MOUTH THREE TIMES DAILY NEEDED FOR MUSCLE RELAXER Rx Instructions: TAKE 1 TABLET BY MOUTH THREE TIMES DAILY NEEDED FOR MUSCLE RELAXER metoprolol succinate 25 mg tablet extended release 24 hr See Rx Instructions .ROUTE .COMPLEX Qty: 30 4RF Dose Instruction: TAKE 1 TABLET BY MOUTH ONCE DAILY FOR HIGH BLOOD PRESSURE Rx Instructions: TAKE 1 TABLET B
[2022-04-08 12:47] LABS: Chloride 105 mmol/L (98-107); Sodium 144 mmol/L (136-145)
[2022-04-08 12:48] LABS: Potassium 4.4 mmoL/L (3.5-5.1)
[2022-04-08 12:50] LABS: Alanine Aminotransferase 21 U/L (12-78); Albumin Level 4.2 g/dl (3.5-5.0); Alkaline Phosphatase 110 U/L (38-126); Aspartate Amino Transferase 25 U/L (17-59); Bilirubin,Unconjugated 0.3 mg/dL (0.0-1.1)
[2022-04-08 12:51] LABS: Anion Gap 13.4 mEq/L (5-15); Bilirubin,Indirect 0.1 mg/dL (0.0-0.9); Bilirubin,Total 0.1 mg/dl (0.2-1.3); Blood Urea Nitrogen 17 mg/dl (9-20); Calcium 8.9 mg/dl (8.4-10.2); Carbon Dioxide 30 mmol/L (22.0-30.0); Creatinine Clearance Estimated 90 mL/min (50-200); Estimated Glomerular Filt Rate 84 ml/min (>60); GFR (African American) 102 ML/MIN (>60); Glucose 104 mg/dl (74-100)
[2022-04-08 13:04] LABS: Troponin I < 0.01 ng/ml (0.00-0.034)
--- NOTE | 2022-04-08 13:30 | PC.NURSE ---
pt dropped aspirin on the floor prior to taking. waste witnessed with [place]. new mediation pulled.
--- NOTE | 2022-04-08 14:45 | PC.NURSE ---
rounded on pt. no needs at this time
== END 2022-04-08 16:36 | disposition home or self-care (01) ==
PROVIDERS: Emergency Provider Emergency Medicine; PCP Emergency Medicine
DX: R07.9 Chest pain, unspecified (principal); I25.10 Atherosclerotic heart disease of native coronary artery without angina pectoris; Z95.5 Presence of coronary angioplasty implant and graft; I10 Essential (primary) hypertension; E78.5 Hyperlipidemia, unspecified; E11.9 Type 2 diabetes mellitus without complications; Z72.0 Tobacco use; Z88.0 Allergy status to penicillin; Z88.2 Allergy status to sulfonamides; Z88.6 Allergy status to analgesic agent; Z91.040 Latex allergy status; M10.9 Gout, unspecified; E03.9 Hypothyroidism, unspecified
CPT/HCPCS: 71045; 80048; 80076; 84484; 85025; 93005; 99284

== ENCOUNTER 2022-04-15 12:27 | Emergency (ER) | payer MEDICARE, OTHER, SELFPAY ==
[2022-04-15 12:48] VITALS: BP 140/70; PULSE 74; RESP 19; TEMP 37.2; O2SAT 98; BMI 29.0
[2022-04-15 13:09] LABS: UTC Influenza A Antigen Negative (Negative); UTC Influenza B Antigen Negative (Negative)
--- NOTE | 2022-04-15 13:16 | EXP.UTC ---
Discharge Plan Disposition Patient Disposition: Home, Self-Care Condition: Good Prescriptions Prescriptions: New azithromycin [Zithromax Z-Bakari] 250 mg tablet See Rx Instructions .ROUTE .COMPLEX 5 Days Qty: 6 0RF Rx Instructions: For 250 mg dose pack: take 500 mg today (day 1), then 250 mg for 4 days (days 2-5) ondansetron HCl 4 mg tablet 4 mg PO Q8H 4 Days Qty: 12 0RF benzonatate 100 mg capsule 100 mg PO TID PRN (Reason: cough) Qty: 30 0RF No Action bupropion HCl 75 mg tablet 75 mg PO BID Qty: 60 3RF aspirin 81 mg tablet,delayed release (DR/EC) 81 mg PO DAILY Qty: 60 3RF alfuzosin 10 mg tablet extended release 24 hr 10 mg PO DAILY Qty: 60 3RF albuterol sulfate 90 mcg/actuation HFA aerosol inhaler 2 puff INHALATION Q4H Qty: 8.5 3RF ranolazine [Ranexa] 500 mg tablet extended release 12 hr 500 mg PO BID Qty: 60 5RF lorazepam 0.5 mg tablet 0.5 mg PO BID PRN (Reason: anxiety) Qty: 60 2RF sildenafil (pulm.hypertension) 20 mg tablet 20 mg PO DAILY PRN (Reason: sexual activity) Qty: 30 5RF Rx Instructions: administer doses at least 4-6 hours apart polyethylene glycol 3350 17 gram powder in packet 17 g PO DAILYP PRN (Reason: constipation) Qty: 30 4RF Rx Instructions: Take 3 packets on day1 for cleanout (DME) lancets 30 gauge misc See Rx Instructions .ROUTE .MEDSUPPLY Qty: 100 2RF Rx Instructions: As directed (DME) Blood Glucose Test Strip See Rx Instructions .ROUTE .MEDSUPPLY Qty: 50 4RF Rx Instructions: As directed (DME) blood-glucose meter [Blood Glucose Monitoring] Kit See Rx Instructions .ROUTE .MEDSUPPLY Qty: 1 0RF Rx Instructions: BID Vraylar 1.5 mg capsule 1.5 mg PO DAILY Qty: 30 2RF hahiuohv-dnauyrqhlb-tixsgrhtf 3.5-400-10,000 kh-iocf-qtev/g ointment 1 applic OPHTHALMIC QID 10 Days Qty: 3.5 0RF cetirizine [Zyrtec] 10 mg tablet 10 mg PO DAILY PRN (Reason: allergy symptoms) Qty: 30 3RF fluticasone propionate [Flonase Allergy Relief] 50 mcg/actuation spray,suspension 1 spray INTRANASAL DAILY Qty: 16 2RF Rx Instructions: administer into each nostril pantoprazole [Protonix] 40 mg tablet,delayed release (DR/EC) 40 mg PO BID Qty: 60 3RF nitroglycerin 0.4 mg tablet, sublingual 0.4 mg SL Q5M PRN (Reason: chest pain) Qty: 25 0RF Rx Instructions: do not exceed 3 doses per episode cholecalciferol (vitamin D3) 125 mcg (5,000 unit) tablet 125 mcg PO DAILY Qty: 30 3RF atorvastatin 40 mg tablet See Rx Instructions .ROUTE .COMPLEX Qty: 90 1RF Dose Instruction: TAKE ONE TABLET BY MOUTH EVERY NIGHT AT BEDTIME FOR CHOLESTEROL Rx Instructions: TAKE ONE TABLET BY MOUTH EVERY NIGHT AT BEDTIME FOR CHOLESTEROL ondansetron HCl 4 mg tablet See Rx Instructions .ROUTE .COMPLEX Qty: 28 0RF Dose Instruction: TAKE 1 TABLET BY MOUTH 4 TIMES DAILY NEEDED FOR NAUSEA AND VOMITING Rx Instructions: TAKE 1 TABLET BY MOUTH 4 TIMES DAILY NEEDED FOR NAUSEA AND VOMITING levothyroxine 75 mcg tablet See Rx Instructions .ROUTE .COMPLEX Qty: 90 2RF Dose Instruction: TAKE ONE TABLET BY MOUTH EVERY DAY FOR THYROID Rx Instructions: TAKE ONE TABLET BY MOUTH EVERY DAY FOR THYROID hydrochlorothiazide 12.5 mg capsule See Rx Instructions .ROUTE .COMPLEX Qty: 90 0RF Dose Instruction: TAKE 1 CAPSULE BY MOUTH ONCE DAILY FOR FLUID Rx Instructions: TAKE 1 CAPSULE BY MOUTH ONCE DAILY FOR FLUID metformin 500 mg tablet See Rx Instructions .ROUTE .COMPLEX Qty: 60 0RF Dose Instruction: TAKE 1 TABLET BY MOUTH ONCE DAILY FOR SUGAR Rx Instructions: TAKE 1 TABLET BY MOUTH ONCE DAILY FOR SUGAR methocarbamol 500 mg tablet See Rx Instructions .ROUTE .COMPLEX Qty: 30 0RF Dose Instruction: TAKE 1 TABLET BY MOUTH THREE TIMES DAILY NEEDED FOR MUSCLE RELAXER Rx Instructions: TAKE 1 TABLET BY MOUTH TH
[2022-04-15 13:46] VITALS: BP 140/70; PULSE 74; RESP 19; TEMP 37.2; O2SAT 98
[2022-04-15 13:54] LABS: Adenovirus,PCR Not Detected (NotDetected); Bordetella Pertussis Not Detected (NotDetected); Chlamydophila Pneumoniae, PCR Not Detected (NotDetected); Coronavirus 19, PCR Not Detected (NotDetected); Coronavirus 229E Not Detected (NotDetected); Coronavirus NL63 Not Detected (NotDetected); Coronavirus OC43 Not Detected (NotDetected); Coronovirus HKU1,PCR Not Detected (NotDetected); Human Metapneumovirus Not Detected (NotDetected); Influenza A, PCR Not Detected (NotDetected); Influenza AH1, PCR Not Detected (NotDetected); Influenza AH3,PCR Not Detected (NotDetected); Influenza B, PCR Not Detected (NotDetected); Mycoplasma Pneumoniae, PCR Not Detected (NotDetected); Parainfluenza 1, PCR Not Detected (NotDetected); Parainfluenza 2, PCR Not Detected (NotDetected); Parainfluenza 3, PCR Not Detected (NotDetected); Parainfluenza 4, PCR Not Detected (NotDetected); Respiratory Syncytial Virus Not Detected (NotDetected); Rhinovirus/Enterovirus Not Detected (NotDetected)
[2022-04-15 18:39] LABS: Influenza AH1, 2009 Detected (NotDetected)
--- NOTE | 2022-04-15 18:39 | PC.NURSE ---
LAB NOTIFICATION RECEIVED FROM [facility] AT THIS TIME, PT NAME AND R/V. KILLIAN VENEGAS APRN NOTIFIED AT THIS TIME
== END 2022-04-15 13:52 | disposition home or self-care (01) ==
PROVIDERS: Emergency Provider Nurse Practitioner; PCP Emergency Medicine
DX: J06.9 Acute upper respiratory infection, unspecified (principal)
CPT/HCPCS: 87581; 87632; 87798; 87804; 99212; C9803; G0463; U0003; U0005

== ENCOUNTER 2022-06-28 11:13 | Emergency (ER) | payer MEDICARE, OTHER, SELFPAY ==
[2022-06-28] VITALS (7 sets, daily range): BP systolic 129–153; BP diastolic 91–101; PULSE 57–66; RESP 17–18; TEMP 36.7; O2SAT 95–97; BMI 31.1
--- NOTE | 2022-06-28 11:13 | ECG_ITS ---
APPROVED REPORT Exam: Resting ECG HR:66 bpm ECG Measurements Heart Rate 66 AXES MT 176 P 53 QRSd 101 QRS -22 QT 400 T 41 QTc 414 Conclusion SINUS RHYTHM BORDERLINE LEFT AXIS DEVIATION [QRS AXIS < -20] BORDERLINE ECG UNCONFIRMED REPORT Electronically signed by : Dominguez Juarez MD 06/28/2022 22:20:47
--- NOTE | 2022-06-28 11:19 | XR_ITS ---
PROCEDURE INFORMATION: Exam: XR Chest Exam date and time: 06/28/2022 11:20 AM Age: 66 years old Clinical indication: Angina pectoris; Patient HX: Chest pain TECHNIQUE: Imaging protocol: Radiologic exam of the chest. Views: 2 views. COMPARISON: CR XR CHEST PORTABLE 04/08/2022 1:31 PM FINDINGS: Lungs: Unremarkable. No consolidation. Pleural spaces: Unremarkable. No pleural effusion. No pneumothorax. Heart/Mediastinum: Unremarkable. No cardiomegaly. Bones/joints: Unremarkable. IMPRESSION: Negative chest.
[2022-06-28 11:29] LABS: Chloride 106 mmol/L (98-107); Sodium 141 mmol/L (136-145)
[2022-06-28 11:32] LABS: Blood Urea Nitrogen 14 mg/dl (9-20); Creatinine Clearance Estimated 93 mL/min (50-200); Estimated Glomerular Filt Rate 74 ml/min (>60); GFR (African American) 90 ML/MIN (>60)
[2022-06-28 11:33] LABS: Calcium 9.4 mg/dl (8.4-10.2); Carbon Dioxide 27 mmol/L (22.0-30.0); Glucose 122 mg/dl (74-100)
[2022-06-28 11:36] LABS: Basophils # 0.1 K/mm3 (0-0.2); Basophils % 1.1 % (0.1-2.0); Eosinophils # 0.1 K/mm3 (0.0-0.4); Hematocrit 42.2 % (42.0-52.0); Hemoglobin 13.5 g/dL (14.1-18.0); Lymphocytes # 2.5 K/mm3 (0.7-4.5); Lymphocytes % 29.9 % (10-50); Mean Corpuscular Hemoglobin 29.7 pg (27.0-31.2); Mean Corpuscular Volume 92.6 fl (80-94); Mean Platelet Volume 7.8 fl (7.4-10.4); Monocytes # 0.5 K/mm3 (0.1-1.0); Monocytes % 5.5 % (1.7-9.3); Neutrophils # 5.2 K/mm3 (1.8-7.8); Neutrophils % 62.4 % (37.0-80.0); Platelet Count 266 K/mm3 (142-424); Red Blood Count 4.56 M/mm3 (4.60-6.20); White Blood Count 8.3 K/mm3 (4.8-10.8)
--- NOTE | 2022-06-28 11:43 | HMH.EDGENADL ---
Discharge Plan Disposition Patient Disposition: Home, Self-Care Condition: Good Prescriptions Prescriptions: No Action bupropion HCl 75 mg tablet 75 mg PO BID Qty: 60 3RF aspirin 81 mg tablet,delayed release (DR/EC) 81 mg PO DAILY Qty: 60 3RF alfuzosin 10 mg tablet extended release 24 hr 10 mg PO DAILY Qty: 60 3RF albuterol sulfate 90 mcg/actuation HFA aerosol inhaler 2 puff INHALATION Q4H Qty: 8.5 3RF ranolazine [Ranexa] 500 mg tablet extended release 12 hr 500 mg PO BID Qty: 60 5RF sildenafil (pulm.hypertension) 20 mg tablet 20 mg PO DAILY PRN (Reason: sexual activity) Qty: 30 5RF Rx Instructions: administer doses at least 4-6 hours apart (DME) lancets 30 gauge misc See Rx Instructions .ROUTE .MEDSUPPLY Qty: 100 2RF Rx Instructions: As directed (DME) Blood Glucose Test Strip See Rx Instructions .ROUTE .MEDSUPPLY Qty: 50 4RF Rx Instructions: As directed (DME) blood-glucose meter [Blood Glucose Monitoring] Kit See Rx Instructions .ROUTE .MEDSUPPLY Qty: 1 0RF Rx Instructions: BID Vraylar 1.5 mg capsule 1.5 mg PO DAILY Qty: 30 2RF furmwwkt-pvsmxzcfla-lrwgorral 3.5-400-10,000 as-fqex-vpfg/g ointment 1 applic OPHTHALMIC QID 10 Days Qty: 3.5 0RF cetirizine [Zyrtec] 10 mg tablet 10 mg PO DAILY PRN (Reason: allergy symptoms) Qty: 30 3RF fluticasone propionate [Flonase Allergy Relief] 50 mcg/actuation spray,suspension 1 spray INTRANASAL DAILY Qty: 16 2RF Rx Instructions: administer into each nostril nitroglycerin 0.4 mg tablet, sublingual 0.4 mg SL Q5M PRN (Reason: chest pain) Qty: 25 0RF Rx Instructions: do not exceed 3 doses per episode cholecalciferol (vitamin D3) 125 mcg (5,000 unit) tablet 125 mcg PO DAILY Qty: 30 3RF levothyroxine 75 mcg tablet See Rx Instructions .ROUTE .COMPLEX Qty: 90 2RF Dose Instruction: TAKE ONE TABLET BY MOUTH EVERY DAY FOR THYROID Rx Instructions: TAKE ONE TABLET BY MOUTH EVERY DAY FOR THYROID methocarbamol 500 mg tablet See Rx Instructions .ROUTE .COMPLEX Qty: 30 0RF Dose Instruction: TAKE 1 TABLET BY MOUTH THREE TIMES DAILY NEEDED FOR MUSCLE RELAXER Rx Instructions: TAKE 1 TABLET BY MOUTH THREE TIMES DAILY NEEDED FOR MUSCLE RELAXER metoprolol succinate 25 mg tablet extended release 24 hr See Rx Instructions .ROUTE .COMPLEX Qty: 30 4RF Dose Instruction: TAKE 1 TABLET BY MOUTH ONCE DAILY FOR HIGH BLOOD PRESSURE Rx Instructions: TAKE 1 TABLET BY MOUTH ONCE DAILY FOR HIGH BLOOD PRESSURE metformin 500 mg tablet See Rx Instructions .ROUTE .COMPLEX Qty: 60 0RF Dose Instruction: TAKE 1 TABLET BY MOUTH ONCE DAILY FOR SUGAR Rx Instructions: TAKE 1 TABLET BY MOUTH ONCE DAILY FOR SUGAR hydrochlorothiazide 12.5 mg capsule See Rx Instructions .ROUTE .COMPLEX Qty: 90 0RF Dose Instruction: TAKE 1 CAPSULE BY MOUTH ONCE DAILY FOR FLUID Rx Instructions: TAKE 1 CAPSULE BY MOUTH ONCE DAILY FOR FLUID losartan 50 mg tablet 50 mg PO DAILY Qty: 30 2RF lorazepam 0.5 mg tablet 0.5 mg PO BID PRN (Reason: anxiety) Qty: 60 2RF pantoprazole [Protonix] 40 mg tablet,delayed release (DR/EC) 40 mg PO BID Qty: 180 1RF atorvastatin 40 mg tablet See Rx Instructions .ROUTE .COMPLEX Qty: 90 1RF Dose Instruction: TAKE ONE TABLET BY MOUTH EVERY NIGHT AT BEDTIME FOR CHOLESTEROL Rx Instructions: TAKE ONE TABLET BY MOUTH EVERY NIGHT AT BEDTIME FOR CHOLESTEROL ondansetron HCl 4 mg tablet 4 mg PO Q8H 4 Days Qty: 12 0RF Referrals Follow up/Referrals: Dipak Miramontes MD [Primary Care Provider] - See instructions Activity Restrictions/Add. Instructions Additional Instructions/Restrictions: Take a dose of losartan tonight, then call Dr. Castellanos's office tomorrow morning to obtain further instructions on your blood pressure medications and also arrange follow-up for further e
[2022-06-28 11:45] LABS: Troponin I < 0.01 ng/ml (0.00-0.034)
--- NOTE | 2022-06-28 11:45 | PC.NURSE ---
MANUELA PEGUERO at
--- NOTE | 2022-06-28 12:01 | PC.NURSE ---
pt sitting up on ED stretcher and reports no needs at this time.
[2022-06-28 15:03] LABS: Troponin I < 0.01 ng/ml (0.00-0.034)
--- NOTE | 2022-06-28 15:11 | PC.NURSE ---
DR. CARR AT BEDSIDE TO UPDATE PT
== END 2022-06-28 15:37 | disposition home or self-care (01) ==
PROVIDERS: Emergency Provider Emergency Medicine; PCP Emergency Medicine
DX: R07.89 Other chest pain (principal); I25.10 Atherosclerotic heart disease of native coronary artery without angina pectoris; E11.9 Type 2 diabetes mellitus without complications; K57.92 Diverticulitis of intestine, part unspecified, without perforation or abscess without bleeding; K21.9 Gastro-esophageal reflux disease without esophagitis; E78.5 Hyperlipidemia, unspecified; I11.9 Hypertensive heart disease without heart failure; F17.210 Nicotine dependence, cigarettes, uncomplicated; Z98.61 Coronary angioplasty status; Z86.16 Personal history of COVID-19
CPT/HCPCS: 36415; 71046; 80048; 84484; 85025; 93005; 99285

== ENCOUNTER → 2022-08-14 06:08 | Outpatient (CLI) | payer MEDICARE, OTHER, SELFPAY ==
--- NOTE | 2022-08-14 06:12 | NM_ITS ---
APPROVED REPORT Exam: Nuclear Stress Test Indication: chest pain..short of breath..fatigue Patient Location: Outpatient Stress Tech: Payton Rajan [place] Tech:TASHI Lima RT(R)(N) Ht: 5 ft 8 in Wt: 209 lbs HR: 57 bpm BP: 171/77 mmHg BSA: 2.08 m2 TID: 1.12 BMI: 31.7 History: chest pain..short of breath..fatigue Procedure: Patient received 0.4 mg of intravenous Lexiscan, resting heart rate 57 bpm, resting blood pressure 171/77 mmHg, with Lexiscan maximum heart rate achieved was 105 bpm which is Less than 85 % of the maximum predicted heart rate and blood pressure was 206/119 mmHg. With Lexiscan, patient denied any complaint of chest pain. Electrocardiogram Resting electrocardiogram shows sinus rhythm, with Lexiscan there is less than 1.[address] segment depression noted from the baseline EKG. The EKG portion of the Lexiscan is nondiagnostic. Cardiac Stress and Resting SPECT Images: Cardiac Stress and Resting SPECT images were obtained using technetium 99m Myoview 31.1 mCi stress and 10.43 mCi at rest. Gated SPECT analysis of segmental wall motion and calculation of the ejection fraction also done. Prone images were also obtained. Cardiac prone images show uniform myocardial activity without segmental perfusion abnormality, computer derived ejection fraction is 54% with no regional wall motion abnormality, right ventricle is normal size and contractility. Conclusion: 1. The EKG portion of the Lexiscan is nondiagnostic. 2. No scintigraphic evidence of reversible ischemia seen, computer derived ejection fraction is 54% with no regional wall motion abnormality, right ventricle is normal size and contractility. 3. Normal Lexiscan Myoview study. Electronically signed by : Star Waterman MD 08/14/2022 13:24:31
--- NOTE | 2022-08-14 08:19 | CA_ITS ---
APPROVED REPORT Exam: Pharmacologic Technologist: Payton Argueta, Ht: 5 ft 10 in Wt: 211 lbs BSA: 2.14 m2 HR: 53 bpm BP: 171/77 mmHg Medical History Medications: Lorazepam,,,,, Aspirin,,,,, Metoprolol,,,,, Metformin,,,,, Vitamin D3,,,,, Losartan,,,,, Atorvastatin,,,,, HCTZ,,,,, Flonase,,,,, Albuterol,,,,, ZYRTEC,,,,, Protonix,,,,, Stress Test Details Test: LEXISCAN Reason for pharmacologic stress test: physical limitation. HR Resting HR: 57 bpm Max Heart Rate (APMHR): 151.027702 bpm Max HR Achieved: 105 bpm Target HR (85% APMHR): 128.062619 bpm % of APMHR: 69.54 Recovery HR: 85 bpm BP Resting BP: 171.0/77.0 mmHg Max BP: 206.0/119.0 mmHg Recovery BP: 175.0/93.0 mmHg ECG Clinical Exercise duration: 04:00 min Highest Stage Achieved: Exercise capacity: 1.0 METs Stress ECG Conclusion Vomiting during test Stymptoms: SOA/ Chest Pain/ Vomiting Arrhythmias/Ectopy: Rare PAC/PVC ST-T Changes: <1.5mm ST Changes Test Summary REST . . . . . . . Resting REST 21:04 . . 57 . 171/ 77 . . Stage 1 01:00 . . 81 . . . . Stage 2 01:00 . . 95 . 156/ 91 . . Stage 3 01:00 . . 92 . 193/102 . . Stage 4 01:00 . . 98 . . . Stop exercise at 04:00 RECOVERY 01:00 . . 101 . 206/119 . . RECOVERY 02:00 . . 97 . 206/119 . . RECOVERY 03:00 . . 88 . 203/101 . . RECOVERY 04:00 . . 87 . 203/101 . . RECOVERY 04:35 . . 85 . 175/ 93 . . Electronically signed by : Star Waterman MD 08/14/2022 13:09:34
== END ==
PROVIDERS: PCP Emergency Medicine; Visit Provider Physician Assistant
DX: E11.69 Type 2 diabetes mellitus with other specified complication (principal); E66.9 Obesity, unspecified; E78.2 Mixed hyperlipidemia; I11.9 Hypertensive heart disease without heart failure; K21.9 Gastro-esophageal reflux disease without esophagitis; R06.02 Shortness of breath; Z86.79 Personal history of other diseases of the circulatory system; Z98.890 Other specified postprocedural states; I20.8 Other forms of angina pectoris; Z79.84 Long term (current) use of oral hypoglycemic drugs; Z68.30 Body mass index [BMI] 30.0-30.9, adult; I71.20 Thoracic aortic aneurysm, without rupture, unspecified; I71.40 Abdominal aortic aneurysm, without rupture, unspecified
CPT/HCPCS: 78452; 93017; A9502; J2785

== ENCOUNTER 2022-12-08 09:08 | Day surgery (SDC) | payer MEDICARE, OTHER, SELFPAY ==
[2022-12-07 11:09] VITALS: BMI 31.9
[2022-12-08 10:16] VITALS: BP 126/69; PULSE 64; RESP 18; TEMP 36.6; O2SAT 94
[2022-12-08 10:21] LABS: POC Glucose,Bedside 118 (70-110)
[2022-12-08 11:21] VITALS: BP 165/87; PULSE 51; RESP 16; O2SAT 97
[2022-12-08 11:26] VITALS: BP 151/81; PULSE 53; RESP 17; O2SAT 96
[2022-12-08 11:36] VITALS: BP 150/90; PULSE 58; RESP 18; TEMP 36.1; O2SAT 98
[2022-12-08 11:49] VITALS: BP 150/90; PULSE 58; RESP 18; TEMP 36.1; O2SAT 98
== END 2022-12-08 11:49 | disposition home or self-care (01) ==
LOC: OR 09:10
PROVIDERS: PCP Nurse Practitioner Family; Visit Provider Ophthalmology
DX: E11.36 Type 2 diabetes mellitus with diabetic cataract (principal); H25.9 Unspecified age-related cataract; H51.9 Unspecified disorder of binocular movement
CPT/HCPCS: 66984; 82962; V2632

== ENCOUNTER 2022-12-22 09:04 | Day surgery (SDC) | payer MEDICARE, OTHER, SELFPAY ==
[2022-12-22] VITALS (7 sets, daily range): BP systolic 136–206; BP diastolic 72–95; PULSE 50–57; RESP 18; TEMP 36.8; O2SAT 96–99; BMI 31.9
[2022-12-22 09:50] LABS: POC Glucose,Bedside 120 (70-110)
== END 2022-12-22 10:45 | disposition home or self-care (01) ==
PROVIDERS: PCP Nurse Practitioner Family; Visit Provider Ophthalmology
DX: E11.36 Type 2 diabetes mellitus with diabetic cataract (principal); H25.9 Unspecified age-related cataract
CPT/HCPCS: 66984; 82962; V2632

== ENCOUNTER → 2023-01-22 11:00 | Outpatient (CLI) | payer MEDICARE, OTHER, SELFPAY ==
[2023-01-22 18:37] LABS: Barbiturates Screen,Urine Negative ng/ml (<200)
[2023-01-22 18:39] LABS: Cannabinoid Screen,Urine Positive ng/ml (<50); Cocaine Screen,Urine Negative ng/ml (<300)
[2023-01-22 19:42] LABS: Benzodiazepines Screen,Urine Negative ng/ml (<200)
[2023-01-22 19:43] LABS: Phencyclidine Screen,Urine Negative ng/ml (<25)
[2023-01-22 20:36] LABS: Amphetamine/Metha Screen,Urine Negative ng/ml (<1000); Methadone Screen,Urine Negative ng/ml (<300); Opiate Screen,Urine Positive ng/ml (<300)
== END ==
PROVIDERS: PCP Nurse Practitioner Family; Visit Provider Nurse Practitioner Family
DX: Z79.899 Other long term (current) drug therapy (principal)
CPT/HCPCS: 80305

== ENCOUNTER → 2023-04-15 15:15 | Outpatient (CLI) | payer MEDICARE, OTHER, SELFPAY ==
[2023-04-15 18:41] LABS: Hemoglobin A1C 5.4 % (4.0-6.0)
[2023-04-15 18:58] LABS: Thyroid Stimulating Hormone 0.97 uIU/mL (0.465-4.68)
== END ==
PROVIDERS: PCP Internal Medicine; Visit Provider Internal Medicine
DX: E11.9 Type 2 diabetes mellitus without complications (principal); E03.9 Hypothyroidism, unspecified; Z79.84 Long term (current) use of oral hypoglycemic drugs
CPT/HCPCS: 83036; 84443

== ENCOUNTER 2023-06-17 09:45 | Day surgery (SDC) | payer MEDICARE, OTHER, SELFPAY ==
[2023-06-11 11:14] VITALS: BMI 32.2
[2023-06-17] VITALS (7 sets, daily range): BP systolic 118–140; BP diastolic 73–87; PULSE 53–61; RESP 14–18; TEMP 36.4–36.6; O2SAT 94–98
--- NOTE | 2023-06-17 10:19 | EXP.ANES.CKL ---
[facility] Disclaimer: The information contained in this section may have been updated after the patient was seen, as this information can be updated by other users. Medical History Abdominal aortic aneurysm Abnormal cardiovascular stress test Aneurysm of ascending aorta Angina pectoris CAD (coronary artery disease) COVID-19 Diabetes mellitus Diverticulitis Ex-smoker Foot pain Gastritis GERD (gastroesophageal reflux disease) Gout attack Hyperlipidemia Hypertensive heart disease Hypothyroidism (~12/11/17) Ingrown left big toenail Ingrown right big toenail Left radial head fracture Obesity (BMI 30-39.9) Other forms of angina pectoris PND (paroxysmal nocturnal dyspnea) Rib pain on left side SOB (shortness of breath) Typical angina Wrist pain Surgical History Hx of brain surgery Hx of eye surgery S/P AAA repair Stented coronary artery Family History Other Family history of cancer Family history of diabetes mellitus type II Family history of myocardial infarction Social History Smoking Status: Former smoker tobacco type: cigarettes packs per day: 4 second hand exposure: No alcohol intake: former counseling provided: none substance use type: marijuana current occupational status: retired Travel in the last 8 weeks: None household members: other housing: house marital status: legally current occupational exposures/hazards: No caffeine: Yes [facility] Anesthesia Checklist Patient Identification Patient Identification: Arm Band and Verbal (Name & ) Structural Data Admitted From: Home Planned Operative Procedure/s: EGD Consent for Planned Operative Procedure(s) Verified: Yes Verified Documents: Surgical Consent and History and Physical NPO Status Verified Time NPO: 19:30 Additional verifications Fingerstick Blood Glucose: 114 Patient : No Anesthesia Reactions: No Cardiovascular Assessment Heart Sounds: S1 & S2 Pulse Rhythm: Irregular Peripheral Edema: No Airway Assessment Mallampati Score:: Class II C-Spine Mobility Assessed: Yes (Limited extension) TMJ Mobility Assessed: Yes Dentition: Edentulous Neurological Assessment Level of Consciousness: Awake, Alert, Appropriate and Follows Commands Hx Seizures: No Numbness or tingling in extremities: No Anesthesia Plan Anesthesia Risk discussed: Yes Anesthesia Plan: Verified ASA Class: III Anesthesia Type: MAC
[2023-06-17 10:21] LABS: POC Glucose,Bedside 111 (70-110)
--- NOTE | 2023-06-17 10:37 | HMH.SCOPE ---
Procedure: Date: 06/17/23 Patient Date of :: 1955 Procedure Performed:: EGD and dilation Indications:: Dysphagia Performing Provider:: Tammie Gamez MD Referring Provider:: Dano Haider Sedation:: Propofol Procedure:: The gastroscope was gently passed through the incisoral orifice into the oral cavity and under direct visualization the esophagus was intubated. The endoscope was passed down the esophagus, through the stomach, and into the duodenum. Color, texture, mucosa, and anatomy of the esophagus, stomach, and duodenum were carefully examined with the scope. Findings:: Oropharynx: normal Esophagus: normal EG Junction: intact at 40 cm, no obvious obstruction or stricture empiric dilation therapy performed with 58F Bougie dilator Cardia: normal Fundus: normal Body: normal Antrum: normal Duodenal bulb: normal Duodenum (second and third portion): normal Impression: Symptomatic dysphagia treated with bougie dilation Recommendations:: F/U EGD and dilation in about THREE years or so, sooner if symptomatic Complications:: None Estimated blood obtained (mL): 0 Colonoscopy Component Colonoscopy Component Was a colonoscopy performed during today's procedure?: No
--- NOTE | 2023-06-17 10:41 | P.PNANES_ITS ---
[facility] Anesthesia Record Part I Anesthesia Record I Intake, IV Amount: 100 Hydration: Adequate Estimated blood loss (mL): 0 Urine output (mL): 0 Blood Products used (#): none Blood Pressure: 118/77 SaO2: 95 Pulse Rate: 60 Airway Patency: Patent Respiratory Rate: 18 Temperature: 97.5 F Patient is:: Awake (Talking) and Stable Stable to PACU at:: 13:43
== END 2023-06-17 11:10 | disposition home or self-care (01) ==
PROVIDERS: PCP Internal Medicine; Visit Provider Internal Medicine Gastroenterology
PROC: 0DJ08ZZ Inspection of Upper Intestinal Tract, Via Natural or Artificial Opening Endoscopic (ICD-10-PCS; CPT 43235; principal; 2023-06-17 11:00)
DX: R13.10 Dysphagia, unspecified (principal); E11.9 Type 2 diabetes mellitus without complications
CPT/HCPCS: 43248; 82962

== ENCOUNTER 2023-06-18 10:12 | Emergency (ER) | payer MEDICARE, OTHER, SELFPAY ==
[2023-06-18] VITALS (11 sets, daily range): BP systolic 142–194; BP diastolic 76–94; PULSE 56–68; RESP 16–18; TEMP 36.6–36.8; O2SAT 94–99; BMI 31.9
--- NOTE | 2023-06-18 10:12 | ECG_ITS ---
APPROVED REPORT Exam: Resting ECG HR:62 bpm ECG Measurements Heart Rate [address] 182 P 50 QRSd 98 QRS -34 QT 422 T 43 QTc 427 Conclusion SINUS RHYTHM LEFT AXIS DEVIATION [QRS AXIS < -30] ABNORMAL ECG UNCONFIRMED REPORT Electronically signed by : Dominguez Juarez MD 06/18/2023 17:59:15
--- NOTE | 2023-06-18 10:12 | PC.NURSE ---
Dr. Calderon at BS for pt eval
--- NOTE | 2023-06-18 10:12 | PC.NURSE ---
FSBS: 126
--- NOTE | 2023-06-18 10:17 | XR_ITS ---
FINAL REPORT CLINICAL HISTORY: dyspnea COMPARISON: 06/28/2022 FINDINGS: SINGLE-VIEW CHEST The heart size is normal. The mediastinum is normal. The lungs are clear. There is no pneumothorax. IMPRESSION: No acute cardiopulmonary process. Reviewed, Interpreted and Dictated by Bandar Payton MD Transcribed by Dyan Villavicencio Authenticated and [facility]
--- NOTE | 2023-06-18 10:21 | HMH.EDCP ---
Discharge Plan Disposition Patient Disposition: Home, Self-Care Prescriptions Prescriptions: No Action aspirin 81 mg tablet,delayed release (DR/EC) 81 mg PO DAILY Qty: 60 3RF (DME) Blood Glucose Test Strip See Rx Instructions .ROUTE .MEDSUPPLY Qty: 50 4RF Rx Instructions: As directed sildenafil (pulm.hypertension) 20 mg tablet 20 mg PO DAILY PRN (Reason: sexual activity) Qty: 30 5RF Rx Instructions: administer doses at least 4-6 hours apart albuterol sulfate 90 mcg/actuation HFA aerosol inhaler 2 puff INHALATION Q4H Qty: 8.5 3RF alfuzosin 10 mg tablet extended release 24 hr 10 mg PO DAILY nitroglycerin 0.4 mg tablet, sublingual 0.4 mg SL Q5M PRN (Reason: chest pain) Qty: 25 0RF Rx Instructions: do not exceed 3 doses per episode lorazepam 0.5 mg tablet 0.5 mg PO BID PRN (Reason: anxiety) Qty: 60 2RF ondansetron HCl 4 mg tablet See Rx Instructions .ROUTE .COMPLEX Qty: 28 0RF Dose Instruction: TAKE 1 TABLET BY MOUTH 4 TIMES DAILY NEEDED FOR NAUSEA AND VOMITING Rx Instructions: TAKE 1 TABLET BY MOUTH 4 TIMES DAILY NEEDED FOR NAUSEA AND VOMITING gabapentin 300 mg capsule 300 mg PO TID Qty: 90 0RF Rx Instructions: Max 100mg TID x 5 days then Max 300mg TID x 30 days hydrochlorothiazide 12.5 mg capsule See Rx Instructions .ROUTE .COMPLEX Qty: 90 0RF Dose Instruction: TAKE 1 CAPSULE BY MOUTH ONCE DAILY FOR FLUID Rx Instructions: TAKE 1 CAPSULE BY MOUTH ONCE DAILY FOR FLUID atorvastatin 40 mg tablet See Rx Instructions .ROUTE .COMPLEX Qty: 90 3RF Rx Instructions: TAKE ONE TABLET BY MOUTH EVERY NIGHT AT BEDTIME FOR CHOLESTEROL methocarbamol 500 mg tablet See Rx Instructions .ROUTE .COMPLEX Qty: 30 0RF Dose Instruction: TAKE 1 TABLET BY MOUTH THREE TIMES DAILY NEEDED FOR MUSCLE RELAXER Rx Instructions: TAKE 1 TABLET BY MOUTH THREE TIMES DAILY NEEDED FOR MUSCLE RELAXER metformin 500 mg tablet See Rx Instructions .ROUTE .COMPLEX Qty: 60 0RF Dose Instruction: TAKE 1 TABLET BY MOUTH ONCE DAILY FOR SUGAR Rx Instructions: TAKE 1 TABLET BY MOUTH ONCE DAILY FOR SUGAR cetirizine 10 mg tablet See Rx Instructions .ROUTE .COMPLEX Qty: 30 1RF Dose Instruction: TAKE 1 TABLET BY MOUTH ONCE DAILY NEEDED FOR ALLERGY SYMPTOMS Rx Instructions: TAKE 1 TABLET BY MOUTH ONCE DAILY NEEDED FOR ALLERGY SYMPTOMS hydrocodone-acetaminophen 5-325 mg tablet 1 tab PO BID PRN (Reason: pain) Qty: 60 0RF Rx Instructions: Chronic Pain metoprolol succinate 25 mg tablet extended release 24 hr See Rx Instructions .ROUTE .COMPLEX Qty: 30 2RF Dose Instruction: TAKE 1 TABLET BY MOUTH ONCE DAILY FOR HIGH BLOOD PRESSURE Rx Instructions: TAKE 1 TABLET BY MOUTH ONCE DAILY FOR HIGH BLOOD PRESSURE pantoprazole 40 mg tablet,delayed release (DR/EC) See Rx Instructions .ROUTE .COMPLEX Qty: 180 1RF Dose Instruction: TAKE 1 TABLET BY MOUTH TWICE DAILY Rx Instructions: TAKE 1 TABLET BY MOUTH TWICE DAILY ranolazine 500 mg tablet extended release 12 hr See Rx Instructions .ROUTE .COMPLEX Qty: 180 1RF Dose Instruction: TAKE 1 TABLET BY MOUTH TWICE DAILY Rx Instructions: TAKE 1 TABLET BY MOUTH TWICE DAILY sdwectsi-vashjzqcia-prtpodhqz 3.5-400-10,000 zi-qolt-ubsh/g ointment 1 applic OPHTHALMIC QID bupropion HCl 75 mg tablet 75 mg PO BID fluticasone propionate [Flonase Allergy Relief] 50 mcg/actuation spray,suspension 1 spray INTRANASAL DAILY Rx Instructions: administer into each nostril levothyroxine 75 mcg capsule 25 mcg PO DAILY Referrals Follow up/Referrals: Sami Castellanos MD [Staff Physician] - See instructions Clinical Impressions Clinical Impression: Chest pain Discharge ED Provider: Chaka Calderon HPI General Chief Complaint: Chest Pain Stated Complaint: chest p
--- NOTE | 2023-06-18 10:32 | PC.NURSE ---
rad at bedside portable cxr
[2023-06-18 10:36] LABS: Basophils # 0.1 K/mm3 (0-0.2); Basophils % 0.6 % (0.1-2.0); Eosinophils # 0.1 K/mm3 (0.0-0.4); Hematocrit 43.1 % (42.0-52.0); Hemoglobin 13.9 g/dL (14.1-18.0); Lymphocytes # 2.3 K/mm3 (0.7-4.5); Lymphocytes % 25.6 % (10-50); Mean Corpuscular HGB Conc 32.1 g/dL (31.8-35.4); Mean Corpuscular Hemoglobin 30.4 pg (27.0-31.2); Mean Corpuscular Volume 94.6 fl (80-94); Monocytes # 0.3 K/mm3 (0.1-1.0); Monocytes % 3.5 % (1.7-9.3); Neutrophils # 6.1 K/mm3 (1.8-7.8); Neutrophils % 69.3 % (37.0-80.0); Platelet Count 199 K/mm3 (142-424); Red Blood Count 4.56 M/mm3 (4.60-6.20); Red Cell Distribution Width 14.1 % (11.5-17.5); White Blood Count 8.8 K/mm3 (4.8-10.8)
[2023-06-18 10:51] LABS: Alanine Aminotransferase 29 U/L (12-78); Aspartate Amino Transferase 32 U/L (17-59); Blood Urea Nitrogen 16 mg/dl (9-20); Creatinine Clearance Estimated 94 mL/min (50-200); Estimated Glomerular Filt Rate 84 ml/min (>60); GFR (African American) 101 ML/MIN (>60)
[2023-06-18 10:52] LABS: Albumin Level 4.4 g/dl (3.5-5.0); Albumin/Globulin Ratio 1.4 (1.1-1.8); Alkaline Phosphatase 126 U/L (38-126); Bilirubin,Total 0.5 mg/dl (0.2-1.3); Carbon Dioxide 27 mmol/L (22.0-30.0); Globulin 3.2 g/dL (1.3-3.2); Glucose 120 mg/dl (74-100); Lipase 43 U/L (23-300); Total Protein,Serum 7.6 g/dl (6.3-8.2)
[2023-06-18 10:57] LABS: D-Dimer 1.74 ug/mL (0.0-0.5)
--- NOTE | 2023-06-18 10:59 | CT_ITS ---
FINAL REPORT TECHNIQUE: The patient was injected with IV contrast. Axial images were obtained through the chest in a PE protocol. 3-D reconstruction images were also performed. Individualized dose reduction techniques using automated exposure control or adjustment of the MA and/or KV according to patient's size were employed. CLINICAL HISTORY: CP; dimer >1 COMPARISON: 11/19/2021 FINDINGS: Mediastinal vasculature is adequately opacified. No pulmonary artery filling defects are identified to suggest PE. There is no aortic dissection. There is no axillary adenopathy. There is no hilar or mediastinal adenopathy. The heart size is normal. There is no pericardial or pleural effusion. Limited images of the upper abdomen reveal a benign-appearing cyst in the right kidney measuring 3.5 cm. There is mild dependent edema in the lung bases. IMPRESSION: No pulmonary embolus or dissection. Mild dependent edema in the lung bases. Reviewed, Interpreted and Dictated by Bandar Payton MD Transcribed by Dyan Villavicencio Authenticated and [facility]
[2023-06-18 11:13] LABS: Troponin I < 0.01 ng/ml (0.00-0.034)
--- NOTE | 2023-06-18 11:32 | PC.NURSE ---
Pt ambulatory to bathroom. No other needs voiced.
[2023-06-18 12:10] LABS: Chloride 106 mmol/L (98-107); Sodium 141 mmol/L (136-145)
[2023-06-18 12:11] LABS: Anion Gap 12.1 mEq/L (5-15); Potassium 4.1 mmoL/L (3.5-5.1)
--- NOTE | 2023-06-18 13:31 | PC.NURSE ---
pt called out wanting something for headache
[2023-06-18 15:28] LABS: Troponin I < 0.01 ng/ml (0.00-0.034)
== END 2023-06-18 15:35 | disposition home or self-care (01) ==
PROVIDERS: Emergency Provider Student in an Organized Health Care Education/Training Program; PCP Nurse Practitioner Family
DX: R07.89 Other chest pain (principal); I25.119 Atherosclerotic heart disease of native coronary artery with unspecified angina pectoris; I11.9 Hypertensive heart disease without heart failure; E11.9 Type 2 diabetes mellitus without complications; K21.9 Gastro-esophageal reflux disease without esophagitis; E78.5 Hyperlipidemia, unspecified; E03.9 Hypothyroidism, unspecified; Z87.891 Personal history of nicotine dependence; Z79.84 Long term (current) use of oral hypoglycemic drugs; Z95.5 Presence of coronary angioplasty implant and graft
CPT/HCPCS: 71045; 71275; 80053; 83690; 84484; 85025; 85378; 93005; 99285; Q9967

== ENCOUNTER 2023-07-19 11:40 | Outpatient (CLI) | payer MEDICARE, OTHER, SELFPAY ==
--- NOTE | 2023-07-19 11:41 | NM_ITS ---
APPROVED REPORT Exam: Nuclear Stress Test Indication: chest pain..soa..fatigue Patient Location: Outpatient Stress Tech: Payton Rajan [place] Tech:Jeannette Carvajal, ARRT, RT (R)(N) Ht: 5 ft 8 in Wt: 210 lbs HR: 58 bpm BP: 164/92 mmHg BSA: 2.09 m2 Rhythm: NSR TID: 1.11 BMI: 31.9 History: chest pain..soa..fatigue Procedure: Patient received 0.4 mg of intravenous Lexiscan, resting heart rate 58 bpm, resting blood pressure 164/92 mmHg, with Lexiscan maximum heart rate achieved was 98 bpm which is 85 % of the maximum predicted heart rate and blood pressure was 179/96 mmHg. With Lexiscan, patient denied any complaint of chest pain. Cardiac Stress and Resting SPECT Images: Cardiac Stress and Resting SPECT images were obtained using technetium 99m Myoview 32.4 mCi stress and 10.17 mCi at rest. Resting and stress imaging in supine and prone position demonstrate a large sized, moderate, fixed perfusion defect in the inferior LV wall from the base and extending distally towards the inferoapical region. Gated imaging demonstrates mild reduction in global LV systolic function. There is severe hypokinesis in the basal inferior LV wall. LVEF is calculated at 49%. Conclusion: Large sized, moderate, fixed perfusion defect in the inferior LV wall from the base and extending distally towards the inferoapical region. There is no evidence of reversible ischemia. Gated imaging demonstrates mild reduction in global LV systolic function. There is severe hypokinesis in the basal inferior LV wall. LVEF is calculated at 49%. Electronically signed by : Elisabeth Mayo MD 07/20/2023 12:22:15
--- NOTE | 2023-07-19 12:27 | CA_ITS ---
APPROVED REPORT EXAM: Comprehensive 2D, Doppler, and color-flow Echocardiogram Outboard Motor Inspector: Jacki Christy CRT Ht: 5 ft 8 in Wt: 216lbs BSA: 2.11 BP: 113/66 mmHg Indications: Chest Pain, COPD, CVA/TIA, Diabetes, CAD, Hyperlipidemia, Hypertension/HDD, Hx covid, AAA, Hx brain tumor, stent 2D Dimensions Left Atrium 2.94 cm LA Volume 30.20 mL LVOT 2.26 cm (M/F) 1.5-2.5 LA Volume Index 14.30 mL/m2 (M/F) 16-34 EF AP2 54.7 % GL Strain -15.3 % M-Mode Dimensions RVDd 3.11 cm (0.9-2.6) LVDd 5.05 cm (3.5-5.7) Ao Diam 5.04 cm (2.0-3.7) LVDs 2.62 cm (3.5-5.7) IVSd 1.29 cm (0.6-1.1) PWd 0.87 cm (0.6-1.1) EF (Teich) 79.30% FS 48.10% EDV (Teich) 121.00 mL TAPSE 1.70 (<1.7) ESV (Teich) 25.10 mL LV Diastology E Decel Time 192 (160-240 msec) E/A Ratio 0.88 MED E' 3.8 (>= 7 cm/sec) MED A' 8.40 cm/s E'/MED E' Ratio 19.53 (<= 14) LAT E' 7.6 (>= 10 cm/sec) LAT A' 8.90 cm/s E/LAT E' Ratio 9.76 (<= 14) Aortic Valve AoV Peak Robert. 122.0 (50-130 cm/s) AO Peak GR. 5.90 mmHg Mitral Valve MV E Max Robert. 74.0 (40-130 cm/s) MV A Velocity 84.0 (40-130 cm/s) E/A Ratio 0.88 MV Decel. Time 192 (160-240 ms) Tricuspid Valve TR P. Velocity 271.00 cm/s RAP Estimate 10.00 mmHg RVSP 39.40 mmHg Left Ventricle The left ventricle is normal size. The left ventricular systolic function is normal. The left ventricular ejection fraction is within the normal range. There is normal left ventricular wall thickness. There is normal LV segmental wall motion. The left ventricular diastolic function is normal. LVEF is 55%. Right Ventricle The right ventricle is normal size. The right ventricular systolic function is normal. Atria The left atrium size is normal. The right atrium size is normal. There is no Doppler evidence of interatrial shunt. Aortic Valve The aortic valve opens well. There is no aortic valvular stenosis. No aortic regurgitation is present. Mitral Valve The mitral valve is normal in structure. No evidence of mitral valve stenosis. There is no mitral valve regurgitation noted. Tricuspid Valve The tricuspid valve leaflets are thin and pliable. Trace tricuspid regurgitation. There is insufficient TR jet to estimate RVSP. Pulmonic Valve The pulmonary valve is normal in structure. Trace pulmonic regurgitation. Great Vessels The aortic root is normal in size. The ascending aorta is normal in size. IVC is normal in size and collapses >50% with inspiration. Pericardium There is no pericardial effusion. Other Information Study Quality: Fair Conclusion Normal biventricular systolic function. No significant valvular stenosis or regurgitation. Electronically signed by : Elisabeth Mayo MD 07/21/2023 11:27:36
[2023-07-19] MEDS: REGADENOSON 0.4MG/5ML SYRINGE 0.400000000000000022 MG IV (13:24)
[2023-07-19] MEDS: SODIUM CHLORIDE 0.9% 10ML SYR (RAD ONLY) 10 ML IV ×2 (13:24→13:25)
[2023-07-19] MEDS: ISOTOPE MYOVIEW (PER STUDY) 1 DOSE IV (13:25)
--- NOTE | 2023-07-19 13:40 | CA_ITS ---
APPROVED REPORT Exam: Pharmacologic Technologist: Payton Argueta, Ht: 5 ft 8 in Wt: 216 lbs BSA: 2.11 m2 HR: 52 bpm BP: 164/92 mmHg Rhythm: NSR Medical History Medications: Lorazepam,,,,, Levothyroxine,,,,, Metoprolol,,,,, Metformin,,,,, Gabapentin,,,,, Lortab,,,,, Pantoprazole,,,,, Atorvastatin,,,,, HCTZ,,,,, Flonase,,,,, Albuterol,,,,, Nitroglycerin,,,,, Stress Test Details Test: LEXISCAN Reason for pharmacologic stress test: physical limitation. HR Resting HR: 58 bpm Max Heart Rate (APMHR): 151 bpm Max HR Achieved: 98 bpm Target HR (85% APMHR): 128 bpm % of APMHR: 65 Recovery HR: 67 bpm BP Resting BP: 164.0/92.0 mmHg Max BP: 179.0/96.0 mmHg Recovery BP: 179.0/96.0 mmHg ECG Resting ECG: Normal sinus rhythm, nonspecific T wave changes in inferior leads Stress ECG: No significant ST changes Arrhythmia: None Clinical Exercise duration: 04:01 min Highest Stage Achieved: Stress ECG Conclusion stress 1minute: Mild SOA. CP stress 2minute: SOA. CP. Nausea recovery 2minute: chest tightness. Symptoms: chest tightness. SOA. Nausea Arrhythmias/Ectopy: None. ST-T Changes: none Conclusion: Unremarkable Lexiscan stress test. Myoview images reported separately. Test Summary REST . . . . . . . Resting REST 01:08 . . 58 . 164/ 92 . . Stage 1 01:00 . . 75 . . . . Stage 2 01:00 . . 86 . 159/ 92 . . Stage 3 01:00 . . 89 . . . . Stage 4 01:00 . . 78 . 162/ 94 . . Stage 4 01:01 . . 79 . 162/ 94 . Stop exercise at 04:01 RECOVERY 01:00 . . 77 . . . . RECOVERY 02:00 . . 71 . . . . RECOVERY 03:00 . . 67 . 173/ 98 . . RECOVERY 04:00 . . 68 . 179/ 96 . . RECOVERY 04:23 . . 66 . 179/ 96 . . Electronically signed by : Elisabeth Mayo MD 07/20/2023 12:19:49
== END 2023-07-19 23:59 ==
LOC: RAD 11:41
PROVIDERS: PCP Nurse Practitioner Family; Visit Provider Nurse Practitioner
DX: E78.5 Hyperlipidemia, unspecified (principal); I11.9 Hypertensive heart disease without heart failure; I25.10 Atherosclerotic heart disease of native coronary artery without angina pectoris; R07.9 Chest pain, unspecified; I71.40 Abdominal aortic aneurysm, without rupture, unspecified
CPT/HCPCS: 78452; 93017; 93018; 93306; A9502; J2785

== ENCOUNTER 2023-07-21 21:14 | Outpatient (CLI) | payer MEDICARE, OTHER, SELFPAY ==
[2023-07-22 00:17] LABS: Amphetamine/Metha Screen,Urine Negative ng/ml (<1000)
[2023-07-22 00:18] LABS: Barbiturates Screen,Urine Negative ng/ml (<200); Benzodiazepines Screen,Urine Negative ng/ml (<200)
[2023-07-22 00:19] LABS: Cannabinoid Screen,Urine Positive ng/ml (<50)
[2023-07-22 00:22] LABS: Cocaine Screen,Urine Negative ng/ml (<300)
[2023-07-22 00:23] LABS: Methadone Screen,Urine Negative ng/ml (<300); Opiate Screen,Urine Positive ng/ml (<300)
[2023-07-22 00:24] LABS: Phencyclidine Screen,Urine Negative ng/ml (<25)
[2023-07-22 00:33] LABS: Microalbumin/Creatinine Ratio 6.7
[2023-07-22 00:35] LABS: Creatinine,Urine Random 256 mg/dL (Not Estab.)
== END 2023-07-21 23:59 ==
LOC: LAB.DROPOF 21:15
PROVIDERS: PCP Nurse Practitioner Family; Visit Provider Nurse Practitioner Family
DX: E11.9 Type 2 diabetes mellitus without complications (principal); F41.9 Anxiety disorder, unspecified; Z79.899 Other long term (current) drug therapy; Z79.84 Long term (current) use of oral hypoglycemic drugs
CPT/HCPCS: 80307; 82043; 82570

== ENCOUNTER 2023-12-21 18:00 | Outpatient (CLI) | payer MEDICARE, OTHER, SELFPAY | END 2023-12-21 23:59 | disposition home or self-care (01) | LOC: LAB.DROPOF 12-22 09:32 | PROVIDERS: PCP Nurse Practitioner Family; Visit Provider Nurse Practitioner Family | DX: N39.0 Urinary tract infection, site not specified (principal); R39.9 Unspecified symptoms and signs involving the genitourinary system | CPT/HCPCS: 87086 ==

== ENCOUNTER 2023-12-28 07:07 | Outpatient (CLI) | payer MEDICARE, OTHER, SELFPAY ==
--- NOTE | 2023-12-28 07:07 | CT_ITS ---
FINAL REPORT CLINICAL HISTORY: Flank Pain hematuria COMPARISON: 11/19/2021 FINDINGS: Axial CT images of the abdomen and pelvis were obtained without intravenous contrast. Coronal reformatted images were also obtained.This study was performed with techniques to keep radiation doses as low as reasonably achievable (ALARA). Individualized dose reduction techniques using automated exposure control or adjustment of mA and/or kV according to the patient's size were employed. Abdomen: There is mild bibasilar atelectasis. There is no evidence of renal stone or hydronephrosis. Presumed, bilateral renal cysts are stable. The gallbladder is partially collapsed. The liver, spleen and pancreas have an unremarkable, unenhanced appearance. No adenopathy is seen. There has been interval placement of an aortic stent graft. The aneurysmal sac measures 3.6 cm and previously measured 4.9 cm. Pelvis: The appendix is not visualized and may be surgically absent. The urinary bladder is unremarkable. The GI tract demonstrates no obstruction. There are R inguinal hernias, bilaterally, containing fat. IMPRESSION: No renal or ureteral stone, or hydronephrosis. No mass or inflammatory process. Reviewed, Interpreted and Dictated by Alex Dwyer III, MD Transcribed by Madelin Rush Authenticated and [facility]
== END 2023-12-28 23:59 | disposition home or self-care (01) ==
LOC: RAD 07:07
PROVIDERS: PCP Nurse Practitioner Family; Visit Provider Nurse Practitioner Family
DX: R10.9 Unspecified abdominal pain (principal)
CPT/HCPCS: 74176

== ENCOUNTER 2024-02-08 13:33 | Emergency (ER) | payer MEDICARE, OTHER, SELFPAY ==
--- NOTE | 2024-02-08 13:22 | ECG_ITS ---
APPROVED REPORT Exam: Resting ECG HR:60 bpm ECG Measurements Heart Rate 60 AXES SC 183 P 74 QRSd 100 QRS -34 QT 423 T 4 QTc 425 Conclusion SINUS RHYTHM LEFT AXIS DEVIATION [QRS AXIS < -30] Electronically signed by : NEDYA BECERRIL, 02/09/2024 07:12:58
[2024-02-08 13:33] VITALS: BP 120/87; PULSE 62; RESP 19; TEMP 36.8; O2SAT 96; BMI 31.9
--- NOTE | 2024-02-08 13:39 | CT_ITS ---
FINAL REPORT TECHNIQUE: Thin-section axial CT with IV contrast supplemented with multi planar reconstruction under CT angiogram protocol was performed of the neck. This study was performed technique to keep radiation doses as low as reasonably achievable, (ALARA). NASCET criteria was utilized during interpretation. CLINICAL HISTORY: L arm and leg tingling, hx stroke COMPARISON: None FINDINGS: Aortic arch: Arch shows no significant narrowing. Great vessel origins are widely patent. Right carotid: There is calcified plaque at the right bifurcation which does not produce significant stenosis. The distal right cervical internal carotid artery is unremarkable. Left carotid: There is calcified plaque at the left bifurcation and carotid bulb, which produces mild less than 50% luminal diameter stenosis. Vertebrals: Left vertebral artery is dominant. No significant stenosis is present. IMPRESSION: Mild less than 50% stenosis of the left carotid bifurcation and bulb secondary to calcified plaque. Otherwise no significant cervical great vessel abnormality is identified. Reviewed, Interpreted and Dictated by Alex Dwyer III, MD Transcribed by Swathi Amaro Authenticated and [facility]
--- NOTE | 2024-02-08 13:39 | CT_ITS ---
FINAL REPORT TECHNIQUE: Pre-and postcontrast images of the abdomen and pelvis were performed by computed tomography. Extensive 3-D reconstruction images were performed. A CTA was performed. This study was performed with techniques to keep radiation doses as low as reasonably achievable (ALARA). Individualized dose reduction techniques using automated exposure control or adjustment of mA and/or kV according to the patient''s size were employed. CLINICAL HISTORY: chest pain hx AAA repair FINDINGS: ABDOMEN/PELVIS: Precontrast images demonstrate no evidence of nephrolithiasis. There are bilateral renal cysts. No adrenal masses are identified. The liver, spleen and pancreas are unremarkable. Aortic stent graft is present. The graft is patent. The appendix is not seen, likely surgically absent. There are small inguinal hernias containing fat. CTA: The abdominal aorta is proper caliber. The SMA and celiac axis are patent. The proximal MATHEW is occluded. There is no significant stenosis or calcification. The renal arteries are patent bilaterally. The iliac arteries are patent. IMPRESSION: Aortic stent graft is intact. Proximal MATHEW is occluded. Reviewed, Interpreted and Dictated by Alex Dwyer III, MD Transcribed by Dyan Villavicencio Authenticated and [facility]
--- NOTE | 2024-02-08 13:39 | XR_ITS ---
FINAL REPORT CLINICAL HISTORY: cp, left arm tingling. hx stroke COMPARISON: 06/18/2023 FINDINGS: SINGLE-VIEW CHEST The heart size is normal. The mediastinum is normal. The lungs are clear. There is no pneumothorax. IMPRESSION: No acute cardiopulmonary process. Reviewed, Interpreted and Dictated by Alex Dwyer III, MD Transcribed by Dyan Villavicencio Authenticated and [facility]
--- NOTE | 2024-02-08 13:39 | CT_ITS ---
FINAL REPORT TECHNIQUE: Thin section axial CT with IV contrast supplemented with multiplanar reconstruction under CT angiogram protocol. 3-D reconstructions were performed. This study was performed with techniques to keep radiation doses as low as reasonably achievable (ALARA). Individualized dose reduction techniques using automated exposure control or adjustment of mA and/or kV according to the patient's size were employed. CLINICAL HISTORY: L arm and leg tingling, hx stroke COMPARISON: None FINDINGS: The distal vertebral and basilar arteries have an unremarkable appearance. There is approximately 50% stenosis of the cavernous portion of the internal carotid artery on the right side. The remainder of the right internal carotid artery distribution is unremarkable. The left internal carotid artery distribution is unremarkable. No aneurysm is seen. Major intracranial vessels are otherwise patent without significant stenosis. IMPRESSION: Approximately 50% stenosis of the cavernous portion of the right internal carotid artery. Otherwise unremarkable CTA of the head. Reviewed, Interpreted and Dictated by Alex Dwyer III, MD Transcribed by Swathi Amaro Authenticated and [facility]
--- NOTE | 2024-02-08 13:39 | CT_ITS ---
FINAL REPORT CLINICAL HISTORY: chest pain, hx AAA repair COMPARISON: 06/18/2023 FINDINGS: Thin section axial CT images of the chest were obtained with contrast. 3D reformatted images were also obtained. This study was performed with techniques to keep radiation doses as low as reasonably achievable (ALARA). Individualized dose reduction techniques using automated exposure control or adjustment of mA and/or kV according to the patient's size were employed. There is no evidence of pulmonary embolism. There is no evidence of thoracic aortic aneurysm or dissection. There is no evidence of mediastinal or hilar mass or adenopathy. There is no evidence of pulmonary mass or nodule. No localized inflammatory process is seen within the lungs. There is mild atelectasis. IMPRESSION: No evidence of pulmonary embolism. Reviewed, Interpreted and Dictated by Alex Dwyer III, MD Transcribed by Dyan Villavicencio Authenticated and . [facility]
--- NOTE | 2024-02-08 13:39 | CT_ITS ---
FINAL REPORT CLINICAL HISTORY: L arm and leg tingling, hx stroke COMPARISON: None FINDINGS: Axial images of the head were obtained without contrast. Coronal and sagittal reformatted images were also obtained.This study was performed with techniques to keep radiation doses as low as reasonably achievable (ALARA). Individualized dose reduction techniques using automated exposure control or adjustment of mA and/or kV according to the patient's size were employed. There are postoperative changes of a prior right occipital craniectomy. Postoperative changes are present as well in the superior aspect of the right orbit that produce streak artifact which somewhat limits overall image quality. There is no evidence of intracranial hemorrhage or mass. The ventricular size is within normal limits. There is no evidence of shift of the midline structures. No abnormal extra axial fluid collection is identified. IMPRESSION: Postoperative changes as described above of a right occipital craniectomy and of the right superior orbital region. The right superior orbital streak artifact slightly limits overall image quality. No acute intracranial abnormality is identified. Reviewed, Interpreted and Dictated by Alex Dwyer III, MD Transcribed by Swathi Amaro Authenticated and [facility]
[2024-02-08 13:58] LABS: Albumin Level 4.2 g/dl (3.5-5.0); Chloride 108 mmol/L (98-107); Sodium 140 mmol/L (136-145)
[2024-02-08 14:01] LABS: Alanine Aminotransferase 24 U/L (12-78); Albumin/Globulin Ratio 1.5 (1.1-1.8); Alkaline Phosphatase 90 U/L (38-126); Aspartate Amino Transferase 28 U/L (17-59); Blood Urea Nitrogen 19 mg/dl (9-20); Carbon Dioxide 27 mmol/L (22.0-30.0); Creatinine Clearance Estimated 77 mL/min (50-200); Estimated Glomerular Filt Rate 60 ml/min (>60); GFR (African American) 72 ML/MIN (>60); Globulin 2.8 g/dL (1.3-3.2); Glucose 116 mg/dl (74-100)
[2024-02-08 14:02] LABS: Basophils # 0.1 K/mm3 (0-0.2); Eosinophils # 0.2 K/mm3 (0.0-0.4); Eosinophils % 2.9 % (0.1-12.0); Hematocrit 40.6 % (42.0-52.0); Hemoglobin 12.7 g/dL (14.1-18.0); INR 0.95 (0.9-1.1); Lymphocytes # 2.1 K/mm3 (0.7-4.5); Lymphocytes % 35.6 % (10-50); Mean Corpuscular HGB Conc 31.4 g/dL (31.8-35.4); Mean Corpuscular Hemoglobin 30.5 pg (27.0-31.2); Mean Corpuscular Volume 97.3 fl (80-94); Mean Platelet Volume 8.2 fl (7.4-10.4); Monocytes # 0.4 K/mm3 (0.1-1.0); Monocytes % 6.2 % (1.7-9.3); Neutrophils # 3.1 K/mm3 (1.8-7.8); Neutrophils % 54.3 % (37.0-80.0); Platelet Count 183 K/mm3 (142-424); Prothrombin Time 10.7 seconds (10.1-12.5); Red Blood Count 4.17 M/mm3 (4.60-6.20); Red Cell Distribution Width 14.2 % (11.5-17.5); White Blood Count 5.8 K/mm3 (4.8-10.8)
--- NOTE | 2024-02-08 14:02 | PC.NURSE ---
rounded on pt no needs at this time
[2024-02-08] MEDS: 0.9 % SODIUM CHLORIDE 50 ML VIAL 100 ML IV (14:29)
[2024-02-08] MEDS: IOPAMIDOL-370 (76%);100ML BOTTLE 160 ML IV (14:29)
[2024-02-08] MEDS: SODIUM CHLORIDE 0.9% 10ML SYR (RAD ONLY) 10 ML IV (14:29)
[2024-02-08 14:53] LABS: Troponin I < 0.01 ng/ml (0.00-0.034)
--- NOTE | 2024-02-08 16:15 | [facility].EDCP ---
Discharge Plan Disposition Patient Disposition: Home, Self-Care Prescriptions Prescriptions: No Action aspirin 81 mg tablet,delayed release (DR/EC) 81 mg PO DAILY Qty: 60 3RF albuterol sulfate 90 mcg/actuation HFA aerosol inhaler 2 puff INHALATION Q4H Qty: 8.5 3RF alfuzosin 10 mg tablet extended release 24 hr 10 mg PO DAILY ondansetron 4 mg tablet,disintegrating 4 mg PO Q8H PRN (Reason: nausea and vomiting) Qty: 30 0RF nitroglycerin 0.4 mg tablet, sublingual 0.4 mg SL Q5M PRN (Reason: chest pain) Qty: 25 0RF Rx Instructions: do not exceed 3 doses per episode omeprazole 40 mg capsule,delayed release(DR/EC) 40 mg PO DAILY Qty: 30 2RF Rx Instructions: Take first thing in am before eating any food. cetirizine 10 mg tablet See Rx Instructions .ROUTE .COMPLEX Qty: 30 3RF Dose Instruction: TAKE 1 TABLET BY MOUTH ONCE DAILY NEEDED FOR ALLERGY SYMPTOMS Rx Instructions: TAKE 1 TABLET BY MOUTH ONCE DAILY NEEDED FOR ALLERGY SYMPTOMS fluticasone propionate [Flonase Allergy Relief] 50 mcg/actuation spray,suspension 1 spray INTRANASAL DAILY Qty: 16 2RF Rx Instructions: administer into each nostril atorvastatin 40 mg tablet See Rx Instructions .ROUTE .COMPLEX Qty: 90 3RF Rx Instructions: TAKE ONE TABLET BY MOUTH EVERY NIGHT AT BEDTIME FOR CHOLESTEROL ranolazine 500 mg tablet extended release 12 hr See Rx Instructions .ROUTE .COMPLEX Qty: 180 1RF Dose Instruction: TAKE 1 TABLET BY MOUTH TWICE DAILY Rx Instructions: TAKE 1 TABLET BY MOUTH TWICE DAILY sildenafil (pulm.hypertension) 20 mg tablet See Rx Instructions .ROUTE .COMPLEX Qty: 30 4RF Dose Instruction: TAKE 1 TABLET DAILY NEEDED FOR SEXUAL ACTIVITY; ADMINISTER DOSES AT LEAST 4-6 HOURS APART Rx Instructions: TAKE 1 TABLET DAILY NEEDED FOR SEXUAL ACTIVITY; ADMINISTER DOSES AT LEAST 4-6 HOURS APART losartan 50 mg tablet See Rx Instructions .ROUTE .COMPLEX Qty: 30 11RF Dose Instruction: TAKE 1 TABLET BY MOUTH ONCE DAILY Rx Instructions: TAKE 1 TABLET BY MOUTH ONCE DAILY metoprolol succinate 25 mg tablet extended release 24 hr See Rx Instructions .ROUTE .COMPLEX Qty: 30 11RF Dose Instruction: TAKE 1 TABLET BY MOUTH ONCE DAILY Rx Instructions: TAKE 1 TABLET BY MOUTH ONCE DAILY (DME) Accu-Chek Guide test strips Strip See Rx Instructions .ROUTE .COMPLEX Qty: 50 3RF Dose Instruction: TEST TWICE DAILY Rx Instructions: TEST TWICE DAILY methocarbamol 500 mg tablet See Rx Instructions .ROUTE .COMPLEX Qty: 30 0RF Dose Instruction: TAKE 1 TABLET BY MOUTH THREE TIMES DAILY NEEDED FOR MUSCLE RELAXER Rx Instructions: TAKE 1 TABLET BY MOUTH THREE TIMES DAILY NEEDED FOR MUSCLE RELAXER hydrochlorothiazide 12.5 mg capsule See Rx Instructions .ROUTE .COMPLEX Qty: 90 0RF Dose Instruction: TAKE 1 CAPSULE BY MOUTH ONCE DAILY FOR FLUID Rx Instructions: TAKE 1 CAPSULE BY MOUTH ONCE DAILY FOR FLUID benzonatate 100 mg capsule 100 mg PO TID PRN (Reason: cough) Qty: 30 0RF metformin 500 mg tablet See Rx Instructions .ROUTE .COMPLEX Qty: 90 1RF Dose Instruction: TAKE 1 TABLET BY MOUTH ONCE DAILY FOR SUGAR Rx Instructions: TAKE 1 TABLET BY MOUTH ONCE DAILY FOR SUGAR pnttcysf-wwppsmxolf-rloesjajs 3.5-400-10,000 ms-rauz-pszv/g ointment 1 applic OPHTHALMIC QID bupropion HCl 75 mg tablet 75 mg PO BID levothyroxine 75 mcg capsule 25 mcg PO DAILY Referrals Follow up/Referrals: Sami Castellanos MD [Staff Physician] - See instructions Provider,MD Robinson [Primary Care Provider] - See instructions Activity Restrictions/Add. Instructions Additional Instructions/Restrictions: No evidence of definitive cardiovascular emergency. Please follow-up closely with Dr. Castellanos return with any significant worsening symptoms. Clinical Impressions Clinical Impression: Chest pain Print Language Print Language: Lithuanian Discharge ED Provider: Charla Morales HPI <Charla Morales MD - Last Filed: 02/08/24 16:40> General Chief Complaint: Chest Pain Stated Complaint: chest pain Time Seen by Provider: 02/08/24 13:39 Mode of Arrival: Ambulatory Source of Information: Patient Limitations: No Limitations Description of Symptoms (Recalled from ER Triage Doc. by RN): pt presents to ED with c/o chest pain, slurred speech worsening, possible neuro symptoms. pt reports that he had a stroke approx 7 years ago. pt reports he has slurred speech and facial drooping at baseline. pt reports chest pain began around 10 am today. radiating across his chest. History of Present Illness HPI narrative: 68-year-old male presents to the ER with complaints of tight chest, slight lightheadedness, tingling radiating to the left arm and leg. Patient reports his chest pain began around 10 AM today and he describes it mainly as pressure and tightness. He describes a tingling sensation in his left arm and leg. He does report his speech has been worsening, but reports this has been over more than a month. He has a history of prior stroke that left him with right sided deficits and poor speech at baseline. He denies fevers, chills, difficulty breathing, nausea, vomiting, diarrhea, headache. Patient reports he has a history of AAA that has been repaired. 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 Related Data Home Medications ?Medication ?Instructions ?Recorded ?Confirmed bupropion HCl 75 mg tablet 75 mg PO BID . 12/08/22 12/21/23 [id number]-[id number]-zkmlnjrr 3.5 1 applic ophthalmic (eye) QID . 12/08/22 12/21/23 mg-400 unit-10,000 unit/gram eye oint alfuzosin 10 mg tablet,extended 10 mg PO DAILY Prostate/urinary 02/19/23 12/21/23 release 24 hr reten. levothyroxine 75 mcg capsule 25 mcg PO DAILY 06/17/23 12/21/23 Previous Rx's ?Medication ?Instructions ?Recorded aspirin 81 mg tablet,delayed 81 mg PO DAILY Heart health #60 06/23/21 release tabs albuterol sulfate 90 mcg/actuation 2 puff inhalation Q4H Asthma #8.5 09/03/22 aerosol inhaler grams atorvastatin 40 mg tablet See Rx Instructions .Route 01/28/23 .COMPLEX Cholesterol #90 tabs ranolazine 500 mg tablet,extended See Rx Instructions .Route 06/15/23 release,12 hr .COMPLEX #180 tabs nitroglycerin 0.4 mg sublingual 0.4 mg sublingual Q5M PRN chest 07/01/23 tablet pain #25 tabs omeprazole 40 mg capsule,delayed 40 mg PO DAILY #30 caps 09/24/23 release sildenafil (pulm.hypertension) 20 See Rx Instructions .Route 10/06/23 mg tablet .COMPLEX #30 tabs losartan 50 mg tablet See Rx Instructions .Route 10/20/23 .COMPLEX #30 tabs metoprolol succinate 25 mg See Rx Instructions .Route 10/20/23 tablet,extended release 24 hr .COMPLEX #30 tabs blood sugar diagnostic (Accu-Chek #50 ea 10/25/23 Guide test strips) ondansetron 4 mg disintegrating 4 mg PO Q8H PRN nausea and 11/04/23 tablet vomiting #30 tabs methocarbamol 500 mg tablet See Rx Instructions .Route 11/12/23 .COMPLEX #30 tabs hydrochlorothiazide 12.5 mg capsule See Rx Instructions .Route 11/17/23 .COMPLEX #90 caps benzonatate 100 mg capsule 100 mg PO TID PRN cough #30 caps 11/26/23 cetirizine 10 mg tablet See Rx Instructions .Route 12/17/23 .COMPLEX #30 tabs fluticasone propionate 50 1 spray intranasal DAILY . #16 12/17/23 mcg/actuation nasal grams spray,suspension (Flonase Allergy Relief) metformin 500 mg tablet See Rx Instructions .Route 01/10/24 .COMPLEX #90 tabs Allergies Allergy/AdvReac Type Severity Reaction Status Date / Time hydromorphone [From Dilaudid] Allergy Severe Anaphylaxis Verified 02/08/24 13:46 latex [LATEX] Allergy Unknown Unknown Verified 02/08/24 13:46 allergy reaction Penicillins [PENICILLINS] Allergy Unknown Unknown Verified 02/08/24 13:46 allergy reaction Sulfa (Sulfonamide Allergy Unknown Unknown Verified 02/08/24 13:46 Antibiotics) allergy [SULFA (SULFONAMIDE reaction ANTIBIOTICS)] [facility]LY [facility], [facility] <Charla Morales MD - Last Filed: 02/08/24 16:40> [facility] Disclaimer: The information contained in this section may have been updated after the patient was seen, as this information can be updated by other users. 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 TSH has not been drawn for some time we will check that today. Ingrown right big toenail Ingrown left big toenail Foot pain Wrist pain Rib pain on left side Left radial head fracture Diabetes mellitus Hypertensive heart disease Hyperlipidemia Gigi has not had a lipid panel drawn in some time. We will draw 1 today and he will continue his atorvastatin for now. Abdominal aortic aneurysm Aneurysm of ascending aorta Surgical History Hx of eye surgery gold weight to help close eyelid Hx of brain surgery tumor S/P AAA repair NOVEMBER 2021. Stented coronary artery Family History Other Family history of cancer Family history of diabetes mellitus type II Family history of myocardial infarction Social History Smoking Status: Current every day smoker tobacco type: cigarettes packs per day: 4 how long ago did patient quit smokin years second hand exposure: Yes alcohol intake: former counseling provided: none substance use type: marijuana current occupational status: retired Travel in the last 8 weeks: None household members: other housing: house marital status: legally current occupational exposures/hazards: No caffeine: Yes physical activity: none do you feel safe at home: Yes victim of physical abuse: No victim of emotional abuse: No victim of sexual abuse: No <Charla Morales MD - Last Filed: 02/08/24 16:40> ROS Obtained: Yes All systems reviewed & no additional complaints except as documented Positive ROS per HPI Physical Exam <Charla Morales MD - Last Filed: 02/08/24 16:40> General General appearance: alert and in no apparent distress Head Head exam: atraumatic and normocephalic Eye Eye exam: Present PERRL and EOMI ENT ENT exam: Present mucous membranes moist Neck Neck exam: Present normal inspection and full ROM Chest Chest inspection: Present symmetric chest wall rise Respiratory Respiratory exam: Present normal lung sounds bilaterally; Absent respiratory distress, wheezes or stridor Cardiovascular Cardiovascular exam: Present regular rate and normal rhythm Abdominal Exam Abdominal exam: Present soft; Absent distention or tenderness Extremities Exam Extremities exam: Present full ROM Neurological Exam Neurological exam: Present alert, oriented X3, normal gait and motor sensory deficit (Baseline right sided facial droop, patient does have slurred speech but states this is not new or acutely worsening, no gross motor or sensory deficits though patient describes tingling sensation in the left arm and leg) Psychiatric Psychiatric exam: Present normal affect and normal mood Skin Skin exam: Present warm and dry HEART Score <Charla Morales MD - Last Filed: 02/08/24 16:40> HEART Score HEART Score assessment performed?: Yes History (anamnesis): Moderately suspicious ECG: Non-specific disturbance Age: >65 years Risk factors: Atherosclerosis history Troponin: </= normal limit HEART Score: 6 <Chaka Calderon MD - Last Filed: 02/08/24 16:51> HEART Score HEART Score: 6 Critical Care <Charla Morales MD - Last Filed: 02/08/24 16:40> Critical Care Time Critical Care Time: No Medical Decision Making <Charla Morales MD - Last Filed: 02/08/24 16:40> Medical Records Medical records reviewed: Yes I reviewed the patient's medical records. MR Comment: Reviewed most recent family practice note demonstrates patient was seen for UTI type symptoms. At that time they recommended increasing fluids, UA, culture. Luis Felipe Inquiry Pt receiving controlled substance: No Vital Signs Vital Signs: 02/08/24 13:33 Temperature 98.2 F Temperature Source Oral Pulse Rate [Left Radial] 62 Respiratory Rate 19 Blood Pressure [Right Arm] 120/87 Blood Pressure Mean [Right Arm] 98 02 Sat by Pulse Oximetry 96 Oxygen Delivery Method Room Air Lab Data Labs: Lab Results 02/08/24 13:30: WBC 5.8, RBC 4.17 L, Hgb 12.7 L, Hct 40.6 L, MCV 97.3 H, MCH 30.5, MCHC 31.4 L, RDW 14.2, Plt Count 183, MPV 8.2, Neut % (Auto) 54.3, Lymph % (Auto) 35.6, Vigo % (Auto) 6.2, Eos % (Auto) 2.9, Baso % (Auto) 1.0, Neut # (Auto) 3.1, Lymph # (Auto) 2.1, Vigo # (Auto) 0.4, Eos # (Auto) 0.2, Baso # (Auto) 0.1, PT 10.7, INR 0.95, Sodium 140, Potassium 4.0, Chloride 108 H, Carbon Dioxide 27, Anion Gap 9.0, BUN 19, Creatinine 1.20, Estimated Creat Clear 77, Estimated GFR 60, Est GFR ( Amer) 72, Glucose 116 H, Calcium 9.0, Total Bilirubin 1.0, AST 28, ALT 24, Alkaline Phosphatase 90, Troponin I < 0.01, Total Protein 7.0, Albumin 4.2, Globulin 2.8, Albumin/Globulin Ratio 1.5 02/08/24 16:15: Troponin I < 0.01 02/08/24 13:30 02/08/24 13:30 Response Orders (Tests/Meds): ED MEDICATIONS Discontinued Medications Generic Name Dose Route Start Last Admin Trade Name Freq PRN Reason Stop Dose Admin Iopamidol 160 ml 02/08/24 14:11 02/08/24 14:29 Iopamidol-370 (76%);100ml Bottle IV 02/08/24 14:12 160 ml ONCE ONE Administration Sodium Chloride 50 ml 02/08/24 14:11 02/08/24 14:29 Sodium Chloride 0.9% 50ml Bag IV 02/08/24 14:12 Not Given ONCE ONE Sodium Chloride 10 ml 02/08/24 14:11 02/08/24 14:29 Sodium Chloride 0.9% 10ml Syr (Rad Only) IV 02/08/24 14:12 10 ml ONCE ONE Administration Sodium Chloride 100 ml 02/08/24 14:11 02/08/24 14:29 0.9 % Sodium Chloride 50 Ml Vial IV 02/08/24 14:12 100 ml ONCE ONE Administration ORDERS Category Date Time Status CT angio abdomen pelvis Stat Cat Scan 02/08/24 13:[address] angio chest - dissection Stat Cat Scan 02/08/24 13:[address] angio head Stat Cat Scan 02/08/24 13:[address] angio neck Stat Cat Scan 02/08/24 13:[address] head/brain wo con Stat Cat Scan 02/08/24 13:39 Completed CXR --portable [XR chest portable] Stat Exams 02/08/24 13:39 Completed CBC w/Auto Diff [Complete Blood Count Auto Diff] Stat Lab 02/08/24 13:30 Completed CMP [Comprehensive Metabolic Panel] Stat Lab 02/08/24 13:30 Completed PT INR [Prothrombin Time INR] Stat Lab 02/08/24 13:30 Completed Trop I [Troponin I] Stat Lab 02/08/24 13:30 Completed Troponin I Q3H Lab 02/08/24 16:15 Completed Troponin I Q3H Lab 02/08/24 19:45 Ordered [facility] Narrative Medical Decision Narrative: In summary, this 68-year-old male presents to the emergency department today with chest pain, tingling of left upper and lower extremity. On initial evaluation patient is hemodynamically stable, afebrile, I do not appreciate gross neurologic deficits different than patient's baseline, cardiopulmonary exam is reassuring. Differential diagnosis includes but is not limited to ACS, given patient's history of AAA I do have increased concern for possible dissection, with his complaints of tingling in the extremities I considered stroke, electrolyte abnormality, among others. Based on these concerns, I ordered cardiac workup, CT angiography of the head, neck, chest/abdomen/pelvis, serum labs. ECG personally interpreted demonstrates normal sinus rhythm, left axis deviation, rate 60, normal NE and QTc, no STEMI. Labs personally interpreted demonstrate mild anemia, no leukocytosis, PT/INR normal, no actionable abnormalities on CMP, initial troponin undetectably low at less than 0.01 CTs were all personally interpreted, I do not appreciate any acute intracranial abnormality, no actionable vascular abnormality in the head or neck, patient has MATEHW occlusion with AAA repair present. See radiology reads. Patient does not have any findings of acute abdomen or findings that would be concerning for acute mesenteric ischemia. He had no abdominal complaints today. The MATHEW occlusion is not surprising given patient has the AAA repair in place. Patient was placed into ED observation at 1500 for serial troponins to rule out evolving HI and preclude unnecessary admission. Patient handed off to Dr. Calderon at physician shift change for further management and disposition. <Chaka Calderon MD - Last Filed: 02/08/24 16:51> Vital Signs Vital Signs: 02/08/24 13:33 Temperature 98.2 F Temperature Source Oral Pulse Rate [Left Radial] 62 Respiratory Rate 19 Blood Pressure [Right Arm] 120/87 Blood Pressure Mean [Right Arm] 98 02 Sat by Pulse Oximetry 96 Oxygen Delivery Method Room Air Lab Data Lab results reviewed: Yes I reviewed the patient's lab results. Labs: Lab Results 02/08/24 13:30: WBC 5.8, RBC 4.17 L, Hgb 12.7 L, Hct 40.6 L, MCV 97.3 H, MCH 30.5, MCHC 31.4 L, RDW 14.2, Plt Count 183, MPV 8.2, Neut % (Auto) 54.3, Lymph % (Auto) 35.6, Vigo % (Auto) 6.2, Eos % (Auto) 2.9, Baso % (Auto) 1.0, Neut # (Auto) 3.1, Lymph # (Auto) 2.1, Vigo # (Auto) 0.4, Eos # (Auto) 0.2, Baso # (Auto) 0.1, PT 10.7, INR 0.95, Sodium 140, Potassium 4.0, Chloride 108 H, Carbon Dioxide 27, Anion Gap 9.0, BUN 19, Creatinine 1.20, Estimated Creat Clear 77, Estimated GFR 60, Est GFR ( Amer) 72, Glucose 116 H, Calcium 9.0, Total Bilirubin 1.0, AST 28, ALT 24, Alkaline Phosphatase 90, Troponin I < 0.01, Total Protein 7.0, Albumin 4.2, Globulin 2.8, Albumin/Globulin Ratio 1.5 02/08/24 16:15: Troponin I < 0.01 Response Orders (Tests/Meds): ED MEDICATIONS Discontinued Medications Generic Name Dose Route Start Last Admin Trade Name Freq PRN Reason Stop Dose Admin Iopamidol 160 ml 02/08/24 14:11 02/08/24 14:29 Iopamidol-370 (76%);100ml Bottle IV 02/08/24 14:12 160 ml ONCE ONE Administration Sodium Chloride 50 ml 02/08/24 14:11 02/08/24 14:29 Sodium Chloride 0.9% 50ml Bag IV 02/08/24 14:12 Not Given ONCE ONE Sodium Chloride 10 ml 02/08/24 14:11 02/08/24 14:29 Sodium Chloride 0.9% 10ml Syr (Rad Only) IV 02/08/24 14:12 10 ml ONCE ONE Administration Sodium Chloride 100 ml 02/08/24 14:11 02/08/24 14:29 0.9 % Sodium Chloride 50 Ml Vial IV 02/08/24 14:12 100 ml ONCE ONE Administration ORDERS Category Date Time Status CT angio abdomen pelvis Stat Cat Scan 02/08/24 13:[address] angio chest - dissection Stat Cat Scan 02/08/24 13:[address] angio head Stat Cat Scan 02/08/24 13:[address] angio neck Stat Cat Scan 02/08/24 13:[address] head/brain wo con Stat Cat Scan 02/08/24 13:39 Completed CXR --portable [XR chest portable] Stat Exams 02/08/24 13:39 Completed CBC w/Auto Diff [Complete Blood Count Auto Diff] Stat Lab 02/08/24 13:30 Completed CMP [Comprehensive Metabolic Panel] Stat Lab 02/08/24 13:30 Completed PT INR [Prothrombin Time INR] Stat Lab 02/08/24 13:30 Completed Trop I [Troponin I] Stat Lab 02/08/24 13:30 Completed Troponin I Q3H Lab 02/08/24 16:15 Completed Troponin I Q3H Lab 02/08/24 19:45 Ordered MDM Narrative Medical Decision Narrative: In summary, this 68-year-old male presents to the emergency department today with chest pain, tingling of left upper and lower extremity. On initial evaluation patient is hemodynamically stable, afebrile, I do not appreciate gross neurologic deficits different than patient's baseline, cardiopulmonary exam is reassuring. Differential diagnosis includes but is not limited to ACS, given patient's history of AAA I do have increased concern for possible dissection, with his complaints of tingling in the extremities I considered stroke, electrolyte abnormality, among others. Based on these concerns, I ordered cardiac workup, CT angiography of the head, neck, chest/abdomen/pelvis, serum labs. ECG personally interpreted demonstrates normal sinus rhythm, left axis deviation, rate 60, normal NE and QTc, no STEMI. Labs personally interpreted demonstrate mild anemia, no leukocytosis, PT/INR normal, no actionable abnormalities on CMP, initial troponin undetectably low at less than 0.01 CTs were all personally interpreted, I do not appreciate any acute intracranial abnormality, no actionable vascular abnormality in the head or neck, patient has MATHEW occlusion with AAA repair present. See radiology reads. Patient does not have any findings of acute abdomen or findings that would be concerning for acute mesenteric ischemia. He had no abdominal complaints today. The MATHEW occlusion is not surprising given patient has the AAA repair in place. Patient was placed into ED observation at 1500 for serial troponins to rule out evolving HI and preclude unnecessary admission. Patient handed off to Dr. Calderon at physician shift change for further management and disposition. This is Dr. Calderon I took over from Dr. Morales at 4:45 PM pending second troponin which returned undetectably low. This is not consistent with acute coronary syndrome. Patient had an extensive workup from Dr. Morales which did not demonstrate any acute cardiovascular emergency. Patient does have an aortic graft with an occluded MATHEW but has no signs or symptoms of mesenteric ischemia this is likely a chronic finding. He is advised to return with any significant worsening symptoms otherwise follow-up with Dr. Castellanos.
[2024-02-08 16:42] LABS: Troponin I < 0.01 ng/ml (0.00-0.034)
--- NOTE | 2024-02-08 16:56 | PC.NURSE ---
Chava vogel called asking for MD to view CT scans. Dr. Calderon notified of this and preceded to viewing area.
--- NOTE | 2024-02-08 16:58 | PC.NURSE ---
I called [facility] to check on transfer to [facility]. [facility] is available but 53 min away. They are checking with [facility] team as they are much closer.
--- NOTE | 2024-02-08 17:00 | PC.NURSE ---
Preparing pt for radial a-line in placement by Dr.J Calderon.
--- NOTE | 2024-02-08 17:02 | PC.NURSE ---
Dr. Calderon on the phone with [facility] for transfer.
[2024-02-08 17:06] VITALS: BP 160/81; PULSE 56; RESP 18; TEMP 36.8; O2SAT 98
== END 2024-02-08 17:07 | disposition home or self-care (01) ==
PROVIDERS: Emergency Provider Emergency Medicine
DX: R07.9 Chest pain, unspecified (principal); R42 Dizziness and giddiness; R20.2 Paresthesia of skin; I69.328 Other speech and language deficits following cerebral infarction; I69.351 Hemiplegia and hemiparesis following cerebral infarction affecting right dominant side; K21.9 Gastro-esophageal reflux disease without esophagitis; E11.9 Type 2 diabetes mellitus without complications; E03.9 Hypothyroidism, unspecified; I11.9 Hypertensive heart disease without heart failure; I25.119 Atherosclerotic heart disease of native coronary artery with unspecified angina pectoris; E78.5 Hyperlipidemia, unspecified; Z95.5 Presence of coronary angioplasty implant and graft; Z79.84 Long term (current) use of oral hypoglycemic drugs
CPT/HCPCS: 70450; 70496; 70498; 71045; 71275; 74174; 80053; 84484; 85025; 85610; 93005; 99285; Q9967

== ENCOUNTER 2024-02-09 12:19 | Emergency (ER) | payer MEDICARE, OTHER, SELFPAY ==
[2024-02-09 12:20] VITALS: BP 153/98; PULSE 86; RESP 22; TEMP 36.9; O2SAT 96; BMI 31.9
--- NOTE | 2024-02-09 12:20 | ECG_ITS ---
APPROVED REPORT Exam: Resting ECG HR:92 bpm ECG Measurements Heart Rate 92 AXES NC 178 P 44 QRSd 98 QRS -44 QT 344 T 33 QTc 394 Conclusion SINUS RHYTHM LEFT AXIS DEVIATION [QRS AXIS < -30] MODERATE VOLTAGE CRITERIA FOR LVH, CONSIDER NORMAL VARIANT [MEETS CRITERIA IN ONE OF: R(aVL), S(V1), R(V5), R(V5/V6)+S(V1)] ABNORMAL ECG Electronically signed by : NEYDA BECERRIL, 02/10/2024 07:08:35
--- NOTE | 2024-02-09 12:27 | XR_ITS ---
FINAL REPORT CLINICAL HISTORY: cp, hypertension COMPARISON: 02/08/2024 FINDINGS: SINGLE-VIEW CHEST The heart size is normal. The mediastinum is normal. The lungs are clear. There is no pneumothorax. IMPRESSION: No acute cardiopulmonary process. Reviewed, Interpreted and Dictated by Alex Dwyer III, MD Transcribed by Dyan Villavicencio Authenticated and [facility]
[2024-02-09 12:30] LABS: Coronavirus 19, PCR Not Detected (NotDetected); Influenza A, PCR Not Detected (NotDetected); Influenza B, PCR Not Detected (NotDetected)
[2024-02-09 12:41] LABS: Basophils # 0.1 K/mm3 (0-0.2); Basophils % 0.9 % (0.1-2.0); Eosinophils # 0.1 K/mm3 (0.0-0.4); Eosinophils % 1.6 % (0.1-12.0); Hematocrit 44.3 % (42.0-52.0); Lymphocytes # 2.4 K/mm3 (0.7-4.5); Lymphocytes % 39.7 % (10-50); Mean Corpuscular HGB Conc 31.8 g/dL (31.8-35.4); Mean Corpuscular Hemoglobin 30.1 pg (27.0-31.2); Mean Corpuscular Volume 94.7 fl (80-94); Mean Platelet Volume 8.3 fl (7.4-10.4); Monocytes # 0.3 K/mm3 (0.1-1.0); Monocytes % 5.1 % (1.7-9.3); Neutrophils # 3.2 K/mm3 (1.8-7.8); Neutrophils % 52.7 % (37.0-80.0); Platelet Count 239 K/mm3 (142-424); Red Blood Count 4.68 M/mm3 (4.60-6.20); Red Cell Distribution Width 14.3 % (11.5-17.5)
[2024-02-09 12:42] LABS: Albumin Level 4.7 g/dl (3.5-5.0); Chloride 108 mmol/L (98-107)
[2024-02-09 12:43] LABS: Potassium 4.1 mmoL/L (3.5-5.1); Sodium 139 mmol/L (136-145)
[2024-02-09 12:45] LABS: Blood Urea Nitrogen 14 mg/dl (9-20); Creatinine Clearance Estimated 84 mL/min (50-200); Estimated Glomerular Filt Rate 66 ml/min (>60); GFR (African American) 80 ML/MIN (>60)
[2024-02-09 12:46] LABS: Alanine Aminotransferase 32 U/L (12-78); Albumin/Globulin Ratio 1.5 (1.1-1.8); Alkaline Phosphatase 94 U/L (38-126); Anion Gap 12.1 mEq/L (5-15); Aspartate Amino Transferase 35 U/L (17-59); Bilirubin,Total 1.1 mg/dl (0.2-1.3); Calcium 9.6 mg/dl (8.4-10.2); Carbon Dioxide 23 mmol/L (22.0-30.0); Globulin 3.2 g/dL (1.3-3.2); Glucose 124 mg/dl (74-100); Total Protein,Serum 7.9 g/dl (6.3-8.2)
[2024-02-09] MEDS: ONDANSETRON 4MG/2ML VIAL 4 MG IV (12:48)
[2024-02-09] MEDS: RINGERS SOLUTION,LACTATED 500 ML 999 ML IV (12:48)
[2024-02-09] MEDS: ACETAMINOPHEN 500MG TAB 500 MG PO (12:48)
--- NOTE | 2024-02-09 12:54 | PC.NURSE ---
xr at bedside
[2024-02-09 13:00] VITALS: BP 129/83; PULSE 71; RESP 14; O2SAT 97
[2024-02-09 13:01] LABS: Troponin I < 0.01 ng/ml (0.00-0.034)
--- NOTE | 2024-02-09 13:06 | ED_ITS ---
Discharge Plan Disposition Patient Disposition: Home, Self-Care Condition: Good Prescriptions Prescriptions: New sucralfate 100 mg/mL suspension 10 ml PO QID 10 Days Qty: 400 0RF Rx Instructions: Take 1 dose before each meal and 1 dose before bed at night. No Action aspirin 81 mg tablet,delayed release (DR/EC) 81 mg PO DAILY Qty: 60 3RF albuterol sulfate 90 mcg/actuation HFA aerosol inhaler 2 puff INHALATION Q4H Qty: 8.5 3RF alfuzosin 10 mg tablet extended release 24 hr 10 mg PO DAILY ondansetron 4 mg tablet,disintegrating 4 mg PO Q8H PRN (Reason: nausea and vomiting) Qty: 30 0RF nitroglycerin 0.4 mg tablet, sublingual 0.4 mg SL Q5M PRN (Reason: chest pain) Qty: 25 0RF Rx Instructions: do not exceed 3 doses per episode omeprazole 40 mg capsule,delayed release(DR/EC) 40 mg PO DAILY Qty: 30 2RF Rx Instructions: Take first thing in am before eating any food. cetirizine 10 mg tablet See Rx Instructions .ROUTE .COMPLEX Qty: 30 3RF Dose Instruction: TAKE 1 TABLET BY MOUTH ONCE DAILY NEEDED FOR ALLERGY SYMPTOMS Rx Instructions: TAKE 1 TABLET BY MOUTH ONCE DAILY NEEDED FOR ALLERGY SYMPTOMS fluticasone propionate [Flonase Allergy Relief] 50 mcg/actuation spray,suspension 1 spray INTRANASAL DAILY Qty: 16 2RF Rx Instructions: administer into each nostril atorvastatin 40 mg tablet See Rx Instructions .ROUTE .COMPLEX Qty: 90 3RF Rx Instructions: TAKE ONE TABLET BY MOUTH EVERY NIGHT AT BEDTIME FOR CHOLESTEROL ranolazine 500 mg tablet extended release 12 hr See Rx Instructions .ROUTE .COMPLEX Qty: 180 1RF Dose Instruction: TAKE 1 TABLET BY MOUTH TWICE DAILY Rx Instructions: TAKE 1 TABLET BY MOUTH TWICE DAILY sildenafil (pulm.hypertension) 20 mg tablet See Rx Instructions .ROUTE .COMPLEX Qty: 30 4RF Dose Instruction: TAKE 1 TABLET DAILY NEEDED FOR SEXUAL ACTIVITY; ADMINISTER DOSES AT LEAST 4-6 HOURS APART Rx Instructions: TAKE 1 TABLET DAILY NEEDED FOR SEXUAL ACTIVITY; ADMINISTER DOSES AT LEAST 4-6 HOURS APART losartan 50 mg tablet See Rx Instructions .ROUTE .COMPLEX Qty: 30 11RF Dose Instruction: TAKE 1 TABLET BY MOUTH ONCE DAILY Rx Instructions: TAKE 1 TABLET BY MOUTH ONCE DAILY metoprolol succinate 25 mg tablet extended release 24 hr See Rx Instructions .ROUTE .COMPLEX Qty: 30 11RF Dose Instruction: TAKE 1 TABLET BY MOUTH ONCE DAILY Rx Instructions: TAKE 1 TABLET BY MOUTH ONCE DAILY (DME) Accu-Chek Guide test strips Strip See Rx Instructions .ROUTE .COMPLEX Qty: 50 3RF Dose Instruction: TEST TWICE DAILY Rx Instructions: TEST TWICE DAILY methocarbamol 500 mg tablet See Rx Instructions .ROUTE .COMPLEX Qty: 30 0RF Dose Instruction: TAKE 1 TABLET BY MOUTH THREE TIMES DAILY NEEDED FOR MUSCLE RELAXER Rx Instructions: TAKE 1 TABLET BY MOUTH THREE TIMES DAILY NEEDED FOR MUSCLE RELAXER hydrochlorothiazide 12.5 mg capsule See Rx Instructions .ROUTE .COMPLEX Qty: 90 0RF Dose Instruction: TAKE 1 CAPSULE BY MOUTH ONCE DAILY FOR FLUID Rx Instructions: TAKE 1 CAPSULE BY MOUTH ONCE DAILY FOR FLUID benzonatate 100 mg capsule 100 mg PO TID PRN (Reason: cough) Qty: 30 0RF metformin 500 mg tablet See Rx Instructions .ROUTE .COMPLEX Qty: 90 1RF Dose Instruction: TAKE 1 TABLET BY MOUTH ONCE DAILY FOR SUGAR Rx Instructions: TAKE 1 TABLET BY MOUTH ONCE DAILY FOR SUGAR [id number] 3.5-400-10,000 sm-ojeb-gfqn/g ointment 1 applic OPHTHALMIC QID bupropion HCl 75 mg tablet 75 mg PO BID levothyroxine 75 mcg capsule 25 mcg PO DAILY Referrals Follow up/Referrals: Provider,Referral, MD [Primary Care Provider] - See instructions Activity Restrictions/Add. Instructions Additional Instructions/Restrictions: You were evaluated in the ER and are appropriate for discharge at this time. Take the prescribed sucralfate as directed. Also continue taking your omeprazole. Follow-up with your primary care doctor and cardiology as scheduled. Return to the ER with new, worsening, or otherwise concerning symptoms. Clinical Impressions Clinical Impression: Chest pain, Cough, Vomiting Print Language Print Language: Croatian Discharge ED Provider: Charla Morales General Chief Complaint: Chest Pain Stated Complaint: Chest pain Time Seen by Provider: 02/09/24 12:23 Mode of Arrival: Family Vehicle Source of Information: Patient Limitations: No Limitations Description of Symptoms (Recalled from ER Triage Doc. by RN): Pt c/o anterior chest pain, nausea with bile emesis, and diaphoresis since this morning. Pt was seen here yesterday for Chest Pain and worsening R facial droop. He also c/o headache and body aches that His work up was negative and he was able to be d/c howevere the n/v is new. Denies and new SOA. Pt states he has SOA all the time , denies it being any worse. Denies any productive cough. History of Present Illness HPI narrative: 68-year-old male presents to the ER for complaints of chest pain, coughing causing nausea and emesis which on further discussion is nonbilious, diaphoresis. Patient was seen here yesterday with similar symptoms however the nausea and vomiting is new. Patient states his cough is nonproductive. He has been afebrile. He describes diffuse bodyaches. Afebrile. Related Data Home Medications ?Medication ?Instructions ?Recorded ?Confirmed bupropion HCl 75 mg tablet 75 mg PO BID . 12/08/22 12/21/23 [id number]-[id number] 3.5 1 applic ophthalmic (eye) QID . 12/08/22 12/21/23 mg-400 unit-10,000 unit/gram eye oint alfuzosin 10 mg tablet,extended 10 mg PO DAILY Prostate/urinary 02/19/23 12/21/23 release 24 hr reten. levothyroxine 75 mcg capsule 25 mcg PO DAILY 06/17/23 12/21/23 Previous Rx's ?Medication ?Instructions ?Recorded aspirin 81 mg tablet,delayed 81 mg PO DAILY Heart health #60 06/23/21 release tabs albuterol sulfate 90 mcg/actuation 2 puff inhalation Q4H Asthma #8.5 09/03/22 aerosol inhaler grams atorvastatin 40 mg tablet See Rx Instructions .Route 01/28/23 .COMPLEX Cholesterol #90 tabs ranolazine 500 mg tablet,extended See Rx Instructions .Route 06/15/23 release,12 hr .COMPLEX #180 tabs nitroglycerin 0.4 mg sublingual 0.4 mg sublingual Q5M PRN chest 07/01/23 tablet pain #25 tabs omeprazole 40 mg capsule,delayed 40 mg PO DAILY #30 caps 09/24/23 release sildenafil (pulm.hypertension) 20 See Rx Instructions .Route 10/06/23 mg tablet .COMPLEX #30 tabs losartan 50 mg tablet See Rx Instructions .Route 10/20/23 .COMPLEX #30 tabs metoprolol succinate 25 mg See Rx Instructions .Route 10/20/23 tablet,extended release 24 hr .COMPLEX #30 tabs blood sugar diagnostic (Accu-Chek #50 ea 10/25/23 Guide test strips) ondansetron 4 mg disintegrating 4 mg PO Q8H PRN nausea and 11/04/23 tablet vomiting #30 tabs methocarbamol 500 mg tablet See Rx Instructions .Route 11/12/23 .COMPLEX #30 tabs hydrochlorothiazide 12.5 mg capsule See Rx Instructions .Route 11/17/23 .COMPLEX #90 caps benzonatate 100 mg capsule 100 mg PO TID PRN cough #30 caps 11/26/23 cetirizine 10 mg tablet See Rx Instructions .Route 12/17/23 .COMPLEX #30 tabs fluticasone propionate 50 1 spray intranasal DAILY . #16 12/17/23 mcg/actuation nasal grams spray,suspension (Flonase Allergy Relief) metformin 500 mg tablet See Rx Instructions .Route 01/10/24 .COMPLEX #90 tabs sucralfate 100 mg/mL oral 10 ml PO QID 10 days #400 mL 02/09/24 suspension Allergies Allergy/AdvReac Type Severity Reaction Status Date / Time hydromorphone [From Dilaudid] Allergy Severe Anaphylaxis Verified 02/08/24 13:46 latex [LATEX] Allergy Unknown Unknown Verified 02/08/24 13:46 allergy reaction Penicillins [PENICILLINS] Allergy Unknown Unknown Verified 02/08/24 13:46 allergy reaction Sulfa (Sulfonamide Allergy Unknown Unknown Verified 02/08/24 13:46 Antibiotics) allergy [SULFA (SULFONAMIDE reaction ANTIBIOTICS)] [facility] Disclaimer: The information contained in this section may have been updated after the patient was seen, as this information can be updated by other users. 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 TSH has not been drawn for some time we will check that today. Ingrown right big toenail Ingrown left big toenail Foot pain Wrist pain Rib pain on left side Left radial head fracture Diabetes mellitus Hypertensive heart disease Hyperlipidemia Gigi has not had a lipid panel drawn in some time. We will draw 1 today and he will continue his atorvastatin for now. Abdominal aortic aneurysm Aneurysm of ascending aorta Surgical History Hx of eye surgery gold weight to help close eyelid Hx of brain surgery tumor S/P AAA repair NOVEMBER 2021. Stented coronary artery Family History Other Family history of cancer Family history of diabetes mellitus type II Family history of myocardial infarction Social History Smoking Status: Former smoker tobacco type: cigarettes packs per day: 4 how long ago did patient quit smokin years second hand exposure: Yes alcohol intake: former counseling provided: none substance use type: marijuana current occupational status: retired Travel in the last 8 weeks: None household members: other housing: house marital status: legally current occupational exposures/hazards: No caffeine: Yes physical activity: none do you feel safe at home: Yes victim of physical abuse: No victim of emotional abuse: No victim of sexual abuse: No ROS Obtained: Yes All systems reviewed & no additional complaints except as documented Positive ROS per HPI Physical Exam General General appearance: alert and in no apparent distress Head Head exam: atraumatic and normocephalic Eye Eye exam: Present PERRL and EOMI ENT ENT exam: Present mucous membranes moist Neck Neck exam: Present normal inspection and full ROM Chest Chest inspection: Present symmetric chest wall rise; Absent tenderness Respiratory Respiratory exam: Present normal lung sounds bilaterally and other (Nonproductive cough, no adventitious sounds); Absent respiratory distress, wheezes or stridor Cardiovascular Cardiovascular exam: Present regular rate and normal rhythm Abdominal Exam Abdominal exam: Present soft; Absent distention, tenderness, guarding or rebound Extremities Exam Extremities exam: Present full ROM; Absent tenderness Neurological Exam Neurological exam: Present alert, oriented X3 and motor sensory deficit (Patient has baseline deficits with significant right sided facial droop, his deficits are at baseline, unchanged) Psychiatric Psychiatric exam: Present normal affect and normal mood Skin Skin exam: Present warm and dry HEART Score HEART Score HEART Score assessment performed?: Yes History (anamnesis): Slightly suspicious ECG: Non-specific disturbance Age: >65 years Risk factors: Atherosclerosis history Troponin: </= normal limit HEART Score: 5 Critical Care Critical Care Time Critical Care Time: No Medical Decision Making Luis Felipe Inquiry Pt receiving controlled substance: No Vital Signs Vital Signs: 02/09/24 12:20 02/09/24 13:00 02/09/24 13:59 Temperature 98.5 F Temperature Source Oral Pulse Rate 71 68 Pulse Rate [Right] 86 Respiratory Rate 22 14 18 Blood Pressure 129/83 145/91 H Blood Pressure [Right Arm] 153/98 H Blood Pressure Mean 102 Blood Pressure Mean [Right Arm] 116 Blood Pressure Source [Right Arm] Automatic Cuff 02 Sat by Pulse Oximetry 96 97 95 Oxygen Delivery Method Room Air Room Air 02/09/24 14:00 02/09/24 14:31 Temperature Temperature Source Pulse Rate 62 66 Pulse Rate [Right] Respiratory Rate 16 16 Blood Pressure 137/81 116/76 Blood Pressure [Right Arm] Blood Pressure Mean 97 89 Blood Pressure Mean [Right Arm] Blood Pressure Source [Right Arm] 02 Sat by Pulse Oximetry 94 L 95 Oxygen Delivery Method Lab Data Labs: Lab Results 02/09/24 12:23: WBC 6.0, RBC 4.68, Hgb 14.0 L D, Hct 44.3, MCV 94.7 H, MCH 30.1, MCHC 31.8, RDW 14.3, Plt Count 239 D, MPV 8.3, Neut % (Auto) 52.7, Lymph % (Auto) 39.7, [place] % (Auto) 5.1, Eos % (Auto) 1.6, Baso % (Auto) 0.9, Neut # (Auto) 3.2, Lymph # (Auto) 2.4, [place] # (Auto) 0.3, Eos # (Auto) 0.1, Baso # (Auto) 0.1, Sodium 139, Potassium 4.1, Chloride 108 H, Carbon Dioxide 23, Anion Gap 12.1, BUN 14 D, Creatinine 1.10, Estimated Creat Clear 84, Estimated GFR 66, Est GFR ( Amer) 80, Glucose 124 H, Calcium 9.6, Total Bilirubin 1.1, AST 35, ALT 32 D, Alkaline Phosphatase 94, Troponin I < 0.01, Total Protein 7.9, Albumin 4.7 D, Globulin 3.2, Albumin/Globulin Ratio 1.5 02/09/24 12:26: SARS-CoV-2 (PCR) Not detected, Influenza A Untype (PCR) Not detected, Influenza Type B (PCR) Not detected 02/09/24 12:23 02/09/24 12:23 Response Orders (Tests/Meds): ED MEDICATIONS Discontinued Medications Generic Name Dose Route Start Last Admin Trade Name Freq PRN Reason Stop Dose Admin Acetaminophen 500 mg 02/09/24 12:27 02/09/24 12:48 Acetaminophen 500mg Tab PO 02/09/24 12:28 500 mg ONCE ONE Administration Belladonna Alkaloids 60 ml 02/09/24 13:52 02/09/24 13:53 Belladonna Alkaloids 60 Ml Ml PO 02/09/24 13:53 60 ml ONCE ONE Administration Lactated Ringer's 500 mls @ 999 mls/hr 02/09/24 12:31 02/09/24 12:48 Lactated Ringer's 500ml IV 02/09/24 13:01 999 mls/hr .Q31M ONE Administration Ondansetron HCl 4 mg 02/09/24 12:30 02/09/24 12:48 Ondansetron 4mg/2ml Vial IV 02/09/24 12:31 4 mg ONCE ONE Administration ORDERS Category Date Time Status CXR --portable [XR chest portable] Stat Exams 02/09/24 12:27 Completed CBC w/Auto Diff [Complete Blood Count Auto Diff] Stat Lab 02/09/24 12:23 Completed CMP [Comprehensive Metabolic Panel] Stat Lab 02/09/24 12:23 Completed Rapid PCR Covid and Flu A/B Stat Lab 02/09/24 12:26 Completed Trop I [Troponin I] Stat Lab 02/09/24 12:23 Completed Troponin I Q3H Lab 02/09/24 15:30 Ordered Troponin I Q3H Lab 02/09/24 18:30 Ordered MDM Narrative Medical Decision Narrative: In summary, this 68-year-old male with history of CVA which is a comorbidity of current condition and increases overall morbidity presents to the emergency department today with chest pain, nonproductive cough, posttussive nonbilious, nonbloody emesis. On initial evaluation patient is hemodynamically stable, afebrile, no adventitious sounds in the lungs, nonproductive cough, nonbilious emesis, no peripheral edema, neurologic deficits are at baseline. Differential diagnosis includes but is not limited to ACS, pneumonia, viral syndrome, pneumothorax, electrolyte abnormality, dehydration. Patient had extensive workup yesterday for similar symptoms which was reassuring and patient was discharged. He states the nausea and vomiting today is new. He had a large bowel movement earlier today. Based on these concerns, I ordered serum labs, cardiac workup, COVID/flu swab. ECG personally interpreted demonstrates normal sinus rhythm, rate 92, left axis deviation, normal NC and QTc, no STEMI. Labs personally reviewed demonstrate no leukocytosis, anemia improving, platelet 239, CMP nonactionable, initial troponin undetectably low at less than 0.01, given the patient has had a long duration of multiple days of chest pain, this is further reassurance. Serial troponins are not necessary at this time Chest x-ray personally to read does not demonstrate acute intrathoracic abnormality. See radiology read for final interpretation. Patient states he continues having discomfort, after further discussion he believes it may be reflux. Patient received GI cocktail and on reassessment he has had dramatic improvement of symptoms. Patient already takes omeprazole so I prescribed sucralfate for outpatient management. He has follow-up with his primary care doctor and cardiology next week. Patient was given instructions on symptomatic management, follow up instructions, and return precautions for the emergency department. Patient indicated understanding and was discharged in stable condition.
[2024-02-09] MEDS: BELLADONNA ALKALOIDS 60 ML ML PO (13:53)
[2024-02-09 13:59] VITALS: BP 145/91; PULSE 68; RESP 18; O2SAT 95
[2024-02-09 14:00] VITALS: BP 137/81; PULSE 62; RESP 16; O2SAT 94
[2024-02-09 14:31] VITALS: BP 116/76; PULSE 66; RESP 16; O2SAT 95
[2024-02-09 15:15] VITALS: BP 109/80; PULSE 72; RESP 18; TEMP 36.6; O2SAT 98
== END 2024-02-09 15:19 | disposition home or self-care (01) ==
PROVIDERS: Emergency Provider Emergency Medicine
DX: R11.2 Nausea with vomiting, unspecified (principal); R07.9 Chest pain, unspecified; R05.9 Cough, unspecified; K21.9 Gastro-esophageal reflux disease without esophagitis; I11.9 Hypertensive heart disease without heart failure; I25.119 Atherosclerotic heart disease of native coronary artery with unspecified angina pectoris; E78.5 Hyperlipidemia, unspecified; Z95.5 Presence of coronary angioplasty implant and graft; E11.9 Type 2 diabetes mellitus without complications; E03.9 Hypothyroidism, unspecified; Z79.84 Long term (current) use of oral hypoglycemic drugs; Z87.891 Personal history of nicotine dependence
CPT/HCPCS: 71045; 80053; 84484; 85025; 87636; 93005; 96374; 99284; J2405; J7120

== ENCOUNTER 2024-02-15 19:53 | Outpatient (CLI) | payer MEDICARE, OTHER, SELFPAY ==
[2024-02-15 21:06] LABS: Microalbumin/Creatinine Ratio 4.6
[2024-02-15 21:22] LABS: Creatinine,Urine Random 248 mg/dL (Not Estab.)
== END 2024-02-15 23:59 | disposition home or self-care (01) ==
LOC: LAB.DROPOF 19:56
PROVIDERS: PCP Nurse Practitioner Family; Visit Provider Nurse Practitioner Family
DX: E11.9 Type 2 diabetes mellitus without complications (principal); Z79.84 Long term (current) use of oral hypoglycemic drugs
CPT/HCPCS: 82043; 82570

== ENCOUNTER 2024-03-14 14:45 | Emergency (ER) | payer MEDICARE, OTHER, SELFPAY ==
[2024-03-14 14:46] VITALS: BP 153/88; PULSE 84; RESP 19; TEMP 36.7; O2SAT 96; BMI 31.1
--- NOTE | 2024-03-14 14:47 | ECG_ITS ---
APPROVED REPORT Exam: Resting ECG HR:75 bpm ECG Measurements Heart Rate 75 AXES AZ 172 P 61 QRSd 102 QRS -35 QT 381 T 30 QTc 410 Conclusion SINUS RHYTHM WITH OCCASIONAL ECTOPIC PREMATURE COMPLEXES LEFT AXIS DEVIATION [QRS AXIS < -30] MINIMAL VOLTAGE CRITERIA FOR LVH, CONSIDER NORMAL VARIANT [MEETS CRITERIA IN ONE OF: R(aVL), S(V1), R(V5), R(V5/V6)+S(V1)] ABNORMAL ECG Electronically signed by : FELIPA OSBORNE, 03/14/2024 23:25:37
--- NOTE | 2024-03-14 14:49 | XR_ITS ---
FINAL REPORT TECHNIQUE: Chest PA & Lateral CLINICAL HISTORY: Shortness of breath and cough x 2 days COMPARISON: 02/09/2024 FINDINGS: 2 views of the chest were performed. The heart size is normal. The mediastinum is within normal limits. There is no acute cardiopulmonary process. There are no pleural effusions. There is no pneumothorax. The bony thorax appears intact. IMPRESSION: No acute cardiopulmonary process. Reviewed, Interpreted and Dictated by Bandar Payton MD Transcribed by Shabana Treadwell Authenticated and [facility]
--- NOTE | 2024-03-14 14:51 | ED_ITS ---
<Statement entered by Alda Long DO - 03/14/24 18:30> I was consulted by the ANTWON, and we discussed the complexity of the problems being addressed. I approved the treatment and management plan for this patient's care in the emergency department, thus performing a substantive portion of the medical decision making. Alda Long DO Discharge Plan Disposition Patient Disposition: Home, Self-Care Condition: Good Prescriptions Prescriptions: New prednisone 20 mg tablet 40 mg PO DAILY 5 Days Qty: 11 0RF Rx Instructions: Please take 60 mg (3 tablets), on the first day 03/15/2024, then 40 mg (2 tablets), for 5 days azithromycin 500 mg tablet 500 mg PO DAILY 5 Days Qty: 5 0RF Rx Instructions: start on day 2 of therapy No Action aspirin 81 mg tablet,delayed release (DR/EC) 81 mg PO DAILY Qty: 60 3RF albuterol sulfate 90 mcg/actuation HFA aerosol inhaler 2 puff INHALATION Q4H Qty: 8.5 3RF alfuzosin 10 mg tablet extended release 24 hr 10 mg PO DAILY ondansetron 4 mg tablet,disintegrating 4 mg PO Q8H PRN (Reason: nausea and vomiting) Qty: 30 0RF nitroglycerin 0.4 mg tablet, sublingual 0.4 mg SL Q5M PRN (Reason: chest pain) Qty: 25 0RF Rx Instructions: do not exceed 3 doses per episode cetirizine 10 mg tablet See Rx Instructions .ROUTE .COMPLEX Qty: 30 3RF Dose Instruction: TAKE 1 TABLET BY MOUTH ONCE DAILY NEEDED FOR ALLERGY SYMPTOMS Rx Instructions: TAKE 1 TABLET BY MOUTH ONCE DAILY NEEDED FOR ALLERGY SYMPTOMS fluticasone propionate [Flonase Allergy Relief] 50 mcg/actuation spray,suspension 1 spray INTRANASAL DAILY Qty: 16 2RF Rx Instructions: administer into each nostril sildenafil (pulm.hypertension) 20 mg tablet See Rx Instructions .ROUTE .COMPLEX Qty: 30 4RF Dose Instruction: TAKE 1 TABLET DAILY NEEDED FOR SEXUAL ACTIVITY; ADMINISTER DOSES AT LEAST 4-6 HOURS APART Rx Instructions: TAKE 1 TABLET DAILY NEEDED FOR SEXUAL ACTIVITY; ADMINISTER DOSES AT LEAST 4-6 HOURS APART losartan 50 mg tablet See Rx Instructions .ROUTE .COMPLEX Qty: 30 11RF Dose Instruction: TAKE 1 TABLET BY MOUTH ONCE DAILY Rx Instructions: TAKE 1 TABLET BY MOUTH ONCE DAILY metoprolol succinate 25 mg tablet extended release 24 hr See Rx Instructions .ROUTE .COMPLEX Qty: 30 11RF Dose Instruction: TAKE 1 TABLET BY MOUTH ONCE DAILY Rx Instructions: TAKE 1 TABLET BY MOUTH ONCE DAILY (DME) Accu-Chek Guide test strips Strip See Rx Instructions .ROUTE .COMPLEX Qty: 50 3RF Dose Instruction: TEST TWICE DAILY Rx Instructions: TEST TWICE DAILY methocarbamol 500 mg tablet See Rx Instructions .ROUTE .COMPLEX Qty: 30 0RF Dose Instruction: TAKE 1 TABLET BY MOUTH THREE TIMES DAILY NEEDED FOR MUSCLE RELAXER Rx Instructions: TAKE 1 TABLET BY MOUTH THREE TIMES DAILY NEEDED FOR MUSCLE RELAXER hydrochlorothiazide 12.5 mg capsule See Rx Instructions .ROUTE .COMPLEX Qty: 90 0RF Dose Instruction: TAKE 1 CAPSULE BY MOUTH ONCE DAILY FOR FLUID Rx Instructions: TAKE 1 CAPSULE BY MOUTH ONCE DAILY FOR FLUID benzonatate 100 mg capsule 100 mg PO TID PRN (Reason: cough) Qty: 30 0RF metformin 500 mg tablet See Rx Instructions .ROUTE .COMPLEX Qty: 90 1RF Dose Instruction: TAKE 1 TABLET BY MOUTH ONCE DAILY FOR SUGAR Rx Instructions: TAKE 1 TABLET BY MOUTH ONCE DAILY FOR SUGAR ranolazine 500 mg tablet extended release 12 hr See Rx Instructions .ROUTE .COMPLEX Qty: 180 1RF Dose Instruction: TAKE 1 TABLET BY MOUTH TWICE DAILY Rx Instructions: TAKE 1 TABLET BY MOUTH TWICE DAILY omeprazole 40 mg capsule,delayed release(DR/EC) See Rx Instructions .ROUTE .COMPLEX Qty: 90 1RF Dose Instruction: TAKE 1 CAPSULE BY MOUTH ONCE DAILY FIRST THING IN MORNING BEFORE EATING ANY FOOD. Rx Instructions: TAKE 1 CAPSULE BY MOUTH ONCE DAILY FIRST THING IN MORNING BEFORE EATING ANY FOOD. jjzwichs-tyqtryrdez-uzoawtrzo 3.5-400-10,000 cr-dthj-ltmn/g ointment 1 applic OPHTHALMIC QID Qty: 3.5 0RF atorvastatin 40 mg tablet See Rx Instructions .ROUTE .COMPLEX Qty: 90 1RF Rx Instructions: TAKE ONE TABLET BY MOUTH EVERY NIGHT AT BEDTIME FOR CHOLESTEROL bupropion HCl 75 mg tablet 75 mg PO BID sucralfate 100 mg/mL suspension 10 ml PO QID 10 Days Qty: 400 0RF Rx Instructions: Take 1 dose before each meal and 1 dose before bed at night. levothyroxine 75 mcg capsule 25 mcg PO DAILY Referrals Follow up/Referrals: Provider,Referral, [Referring] - See instructions Clinical Impressions Clinical Impression: SOB (shortness of breath), Chest pain, Cough, Acute exacerbation of chronic obstructive pulmonary disease Instructions Patient Instructions: DI for Atypical Chest Pain, DI for Chronic Obstructive Pulmonary Disease Print Language Print Language: [place] Discharge ED Provider: Alda Long General Adult HPI General Chief complaint: Chest Pain Stated complaint: CP Time Seen by Provider: 03/14/24 14:47 Mode of Arrival: Ambulatory Source of Information: Patient Limitations: No Limitations History of Present Illness HPI narrative: 68-year-old male presents emergency department with chest pain, cough, congestion, nausea vomiting since last night, patient states that he has been coughing up phlegm , denies any fever chills recent illness, denies any abdominal pain, constipation, diarrhea, urinary type symptomatology, denies hematemesis, hematochezia, melena. Other past medical history consistent with type 2 diabetes, hyperlipidemia, hypertension, coronary artery disease that is post 1 stent placement, residual right-sided facial droop/deficits, from prior craniectomy for intracranial mass, BPH, diverticulosis, status post AAA repair with surgical mesh, gout, hypothyroidism, pulmonary hypertension. He is a former smoker, denies any alcohol use, admits to current everyday marijuana use. Initial triage vitals are grossly unremarkable with the exception of SpO2 94% on room air, no tachypnea or tachycardia. Onset (ago): day(s) Related Data Home Medications ?Medication ?Instructions ?Recorded ?Confirmed bupropion HCl 75 mg tablet 75 mg PO BID . 12/08/22 02/15/24 alfuzosin 10 mg tablet,extended 10 mg PO DAILY Prostate/urinary 02/19/23 02/15/24 release 24 hr reten. levothyroxine 75 mcg capsule 25 mcg PO DAILY 06/17/23 02/15/24 Previous Rx's ?Medication ?Instructions ?Recorded aspirin 81 mg tablet,delayed 81 mg PO DAILY Heart health #60 06/23/21 release tabs albuterol sulfate 90 mcg/actuation 2 puff inhalation Q4H Asthma #8.5 09/03/22 aerosol inhaler grams nitroglycerin 0.4 mg sublingual 0.4 mg sublingual Q5M PRN chest 07/01/23 tablet pain #25 tabs sildenafil (pulm.hypertension) 20 See Rx Instructions .Route 10/06/23 mg tablet .COMPLEX #30 tabs losartan 50 mg tablet See Rx Instructions .Route 10/20/23 .COMPLEX #30 tabs metoprolol succinate 25 mg See Rx Instructions .Route 10/20/23 tablet,extended release 24 hr .COMPLEX #30 tabs blood sugar diagnostic (Accu-Chek #50 ea 10/25/23 Guide test strips) ondansetron 4 mg disintegrating 4 mg PO Q8H PRN nausea and 11/04/23 tablet vomiting #30 tabs methocarbamol 500 mg tablet See Rx Instructions .Route 11/12/23 .COMPLEX #30 tabs hydrochlorothiazide 12.5 mg capsule See Rx Instructions .Route 11/17/23 .COMPLEX #90 caps benzonatate 100 mg capsule 100 mg PO TID PRN cough #30 caps 11/26/23 metformin 500 mg tablet See Rx Instructions .Route 01/10/24 .COMPLEX #90 tabs sucralfate 100 mg/mL oral 10 ml PO QID 10 days #400 mL 02/09/24 suspension ranolazine 500 mg tablet,extended See Rx Instructions .Route 02/10/24 release,12 hr .COMPLEX #180 tabs cetirizine 10 mg tablet See Rx Instructions .Route 02/15/24 .COMPLEX #30 tabs fluticasone propionate 50 1 spray intranasal DAILY . #16 02/15/24 mcg/actuation nasal grams spray,suspension (Flonase Allergy Relief) omeprazole 40 mg capsule,delayed See Rx Instructions .Route 03/01/24 release .COMPLEX #90 caps ejpbkbde-iptnbauvsf-lsivsgqw 3.5 1 applic ophthalmic (eye) QID . 03/03/24 mg-400 unit-10,000 unit/gram eye #3.5 grams oint atorvastatin 40 mg tablet See Rx Instructions .Route 03/13/24 .COMPLEX Cholesterol #90 tabs azithromycin 500 mg tablet 500 mg PO DAILY 5 days #5 tabs 03/14/24 prednisone 20 mg tablet 40 mg (2 x 20 mg) PO DAILY 5 days 03/14/24 #11 tabs Allergies Allergy/AdvReac Type Severity Reaction Status Date / Time hydromorphone [From Dilaudid] Allergy Severe Anaphylaxis Verified 02/15/24 13:33 latex [LATEX] Allergy Unknown Unknown Verified 02/15/24 13:33 allergy reaction Penicillins [PENICILLINS] Allergy Unknown Unknown Verified 02/15/24 13:33 allergy reaction Sulfa (Sulfonamide Allergy Unknown Unknown Verified 02/15/24 13:33 Antibiotics) allergy [SULFA (SULFONAMIDE reaction ANTIBIOTICS)] [facility] Disclaimer: The information contained in this section may have been updated after the patient was seen, as this information can be updated by other users. 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 TSH has not been drawn for some time we will check that today. Ingrown right big toenail Ingrown left big toenail Foot pain Wrist pain Rib pain on left side Left radial head fracture Diabetes mellitus Hypertensive heart disease Hyperlipidemia Gigi has not had a lipid panel drawn in some time. We will draw 1 today and he will continue his atorvastatin for now. Abdominal aortic aneurysm Aneurysm of ascending aorta Surgical History Hx of eye surgery gold weight to help close eyelid Hx of brain surgery tumor S/P AAA repair NOVEMBER 2021. Stented coronary artery Family History Other Family history of cancer Family history of diabetes mellitus type II Family history of myocardial infarction Social History Smoking Status: Current every day smoker tobacco type: cigarettes packs per day: 4 how long ago did patient quit smokin years second hand exposure: Yes alcohol intake: former counseling provided: none substance use type: marijuana current occupational status: retired Travel in the last 8 weeks: None household members: other housing: house marital status: legally current occupational exposures/hazards: No caffeine: Yes physical activity: none do you feel safe at home: Yes victim of physical abuse: No victim of emotional abuse: No victim of sexual abuse: No ROS Obtained: Yes All systems reviewed & no additional complaints except as documented Physical Exam General General appearance: alert and in no apparent distress Head Head exam: atraumatic and normocephalic Eye Eye exam: Present normal appearance, PERRL and EOMI Neck Neck exam: Present full ROM; Absent meningismus Chest Chest inspection: Present normal inspection Respiratory Respiratory exam: Present wheezes; Absent respiratory distress, stridor, accessory muscle use or prolonged expiratory phase Expanded Respiratory Exam Location: Left: wheezes, Right: wheezes and rales, Upper: wheezes and rales and Lower: rales Cardiovascular Cardiovascular exam: Present normal rhythm and other (Pulses equal and symmetric in bilateral upper and lower extremities) Abdominal Exam Abdominal exam: Absent distention, tenderness, guarding, rebound or rigidity Extremities Exam Extremities exam: Absent edema Neurological Exam Neurological exam: Present alert Psychiatric Psychiatric exam: Present normal affect Skin Skin exam: Present warm and dry Medical Decision Making Medical Records Medical records reviewed: Yes I reviewed the patient's medical records. Screening: Per USPSTF and CDC recommendations, given the prevalence of disease in our region, it is our hospital?s policy to screen for HIV and viral Hepatitis for all patients aged 18 and over and those with ongoing risk factors. Luis Felipe Inquiry Pt receiving controlled substance: No Luis Felipe was queried for this patient: No Vital Signs: 03/14/24 14:46 03/14/24 15:00 03/14/24 15:30 Temperature 98.0 F Temperature Source Oral Pulse Rate 78 71 Pulse Rate [Left Radial] 84 Respiratory Rate 19 20 Blood Pressure 133/74 120/65 Blood Pressure [Right Arm] 153/88 H Blood Pressure Mean 93 83 Blood Pressure Mean [Right Arm] 109 Blood Pressure Source [Right Arm] Automatic Cuff Blood Pressure Position [Right Arm] Sitting 02 Sat by Pulse Oximetry 96 94 L Oxygen Delivery Method Room Air Room Air Room Air 03/14/24 16:00 03/14/24 16:30 Temperature Temperature Source Pulse Rate 91 H 81 Pulse Rate [Left Radial] Respiratory Rate 18 20 Blood Pressure 117/71 113/70 Blood Pressure [Right Arm] Blood Pressure Mean 81 80 Blood Pressure Mean [Right Arm] Blood Pressure Source [Right Arm] Blood Pressure Position [Right Arm] 02 Sat by Pulse Oximetry 98 92 L Oxygen Delivery Method Room Air Room Air Lab Data Lab results reviewed: Yes I reviewed the patient's lab results. Lab Results 03/14/24 14:51: WBC 10.0, RBC 4.39 L, Hgb 13.5 L, Hct 42.1, MCV 95.9 H, MCH 30.7, MCHC 32.1, RDW 14.0, Plt Count 214, MPV 7.4, Neut % (Auto) 78.2, Lymph % (Auto) 15.1, Bea[place]gard % (Auto) 5.0, Eos % (Auto) 1.2, Baso % (Auto) 0.5, Neut # (Auto) 7.8, Lymph # (Auto) 1.5, Bea[place]gard # (Auto) 0.5, Eos # (Auto) 0.1, Baso # (Auto) 0.1, PT 11.4, INR 1.02, Sodium 141, Potassium 3.8, Chloride 111 H, Carbon Dioxide 22, Anion Gap 11.8, BUN 13, Creatinine 0.90, Estimated GFR 83, Est GFR ( Amer) 101, Glucose 109 H, Calcium 8.9, Total Bilirubin 0.9, AST 28, ALT 29, Alkaline Phosphatase 101, CK-MB (CK-2) 0.7, Troponin I < 0.01, NT-Pro-B Natriuret Pep 406 H, Total Protein 7.3, Albumin 4.5, Globulin 2.8, Albumin/Globulin Ratio 1.6 03/14/24 15:02: VBG pH 7.43 H, VBG pCO2 31.2 L, VBG pO2 72.2 H, VBG HCO3 20.2 L, VBG Total CO2 21.1 L, VBG O2 Saturation 95.0 H, VBG Base Excess -4.2 L, VBG Lactic Acid 3.0 H 03/14/24 15:50: SARS-CoV-2 (PCR) Not detected, Influenza A Untype (PCR) Not detected, Influenza Type B (PCR) Not detected 03/14/24 14:51 03/14/24 14:51 Orders (Tests/Meds): ED MEDICATIONS Discontinued Medications Generic Name Dose Route Start Last Admin Trade Name Freq PRN Reason Stop Dose Admin Albuterol/Ipratropium 9 ml 03/14/24 14:58 03/14/24 15:44 Ipratropium/Albuterol 3 Ml Neb 03/14/24 14:59 9 ml ONCE ONE Administration Lidocaine HCl 5 ml 03/14/24 15:46 03/14/24 16:08 Lidocaine 2% 5ml Pf Vial 03/14/24 15:47 5 ml ONCE ONE Administration Methylprednisolone Sodium Succinate 125 mg 03/14/24 16:11 03/14/24 16:25 Methylprednisolone Sod Succ 125mg Vial IV 03/14/24 16:12 125 mg ONCE ONE Administration Ondansetron HCl 2 mg 03/14/24 14:49 03/14/24 15:04 Ondansetron 4mg/2ml Vial IV 03/14/24 14:50 2 mg ONCE ONE Administration ORDERS Category Date Time Status XR chest 2V Stat Exams 03/14/24 14:49 Completed Complete Blood Count Auto Diff Stat Lab 03/14/24 14:51 Completed Comprehensive Metabolic Panel Stat Lab 03/14/24 14:51 Completed Creatine Kinase MB Stat Lab 03/14/24 14:51 Completed HIV (1&2) Antibody Rapid Stat Lab 03/14/24 14:57 Received Hep C Ab with Reflex to RNA Stat Lab 03/14/24 14:57 Received NT Pro Brain Natriuretic Pep. Stat Lab 03/14/24 14:51 Completed Prothrombin Time INR Stat Lab 03/14/24 14:51 Completed Rapid PCR Covid and Flu A/B Stat Lab 03/14/24 15:50 Completed Troponin I Q3H Lab 03/14/24 18:00 Ordered Troponin I Q3H Lab 03/14/24 21:00 Ordered Troponin I Stat Lab 03/14/24 14:51 Completed Venous Blood Gas Stat RT 03/14/24 15:02 Completed HEART Score History (anamnesis): Slightly suspicious ECG: Normal Age: >65 years Risk factors: 3 or more risk factors Medical Decision Narrative: 68-year-old male presents emerged part with chest pain, nausea, vomiting, cough, congestion, shortness of breath, different diagnose include but not limited to URI, ACS, pneumonia, costochondritis, COPD exacerbation, pulmonary edema, CHF exacerbation, gastritis, GERD. I discussed this patient's case with attending physician Dr. Long Obtain CBC, CMP, troponin, EKG, BNP, CXR, CK, PT/INR, cardiac specialist, VBG, COVID-19/influenza A and B rapid antigen swabs, continuous pulse ox monitoring, will give 4 mg IV Zofran for nausea, will also give 9 mL DuoNeb for shortness of breath. CBC is notable for erythrocytepenia 4.39, minimal decreased hemoglobin at 13.5, MCV is elevated at 95.9 reflect ongoing macrocytic anemia. CMP notable for hyperchloremia at 111 PT/INR within normal limits, VBG notable for Respiratory alkalosis, with pH of 7.43, due to decreased at 31.2, decreased at 20.2, venous lactic acid is elevated at 3. CMP notable for elevated BNP at 406 otherwise unremarkable. Troponin within normal limits. I along with the attending physician for the patient's EKG, 75 bpm, with sinus rhythm with occasional PVCs, SC interval and QT interval within normal limits, there is no STEMI. Also give 5 mL inhaled lidocaine for antitussive relief. Also give 125 IV Solu-Medrol for COPD exacerbation. COVID- 19 negative, influenza A negative, influenza B negative. Will add on hep C antibody reflex. I reviewed the patient's chest x-ray along with corresponding radiologic report, no pleural effusions, no pneumothorax, no acute cardiopulmonary process overall. Assessment of the patient at 4:50 PM, patient is doing better as far as her shortness of breath, cough and chest pain. The patient sits up, his SpO2 improved to 95% to 96% on room air, believe this is his baseline due to his pulmonary hypertension and ongoing COPD. The patient is having from a COPD exacerbation, laboratory studies unremarkable, his VBG appears to be chronic, no pneumonia, no consolidation, troponin and EKG are normal. Patient be discharged home to self-care, follow-up PCP as directed, I will prescribe prednisone 60 mg x 1, then 40 mg p.o. daily for 5 days, well as azithromycin 500 mg p.o. once a day for 5 days. ED return precaution discussed with the patient at bedside, patient agreed with the current treatment plan/discharge plan. Critical Care Critical Care Time Critical Care Time: No
[2024-03-14 15:00] VITALS: BP 133/74; PULSE 78; RESP 20; O2SAT 94
[2024-03-14] MEDS: ONDANSETRON 4MG/2ML VIAL 2 MG IV (15:04)
[2024-03-14 15:05] LABS: Albumin Level 4.5 g/dl (3.5-5.0); Chloride 111 mmol/L (98-107); Potassium 3.8 mmoL/L (3.5-5.1); Sodium 141 mmol/L (136-145)
[2024-03-14 15:07] LABS: Basophils # 0.1 K/mm3 (0-0.2); Basophils % 0.5 % (0.1-2.0); Eosinophils # 0.1 K/mm3 (0.0-0.4); Eosinophils % 1.2 % (0.1-12.0); Hematocrit 42.1 % (42.0-52.0); Hemoglobin 13.5 g/dL (14.1-18.0); Lymphocytes # 1.5 K/mm3 (0.7-4.5); Lymphocytes % 15.1 % (10-50); Mean Corpuscular HGB Conc 32.1 g/dL (31.8-35.4); Mean Corpuscular Hemoglobin 30.7 pg (27.0-31.2); Mean Corpuscular Volume 95.9 fl (80-94); Mean Platelet Volume 7.4 fl (7.4-10.4); Monocytes # 0.5 K/mm3 (0.1-1.0); Neutrophils # 7.8 K/mm3 (1.8-7.8); Neutrophils % 78.2 % (37.0-80.0); Platelet Count 214 K/mm3 (142-424); Red Blood Count 4.39 M/mm3 (4.60-6.20)
[2024-03-14 15:08] LABS: Alanine Aminotransferase 29 U/L (12-78); Albumin/Globulin Ratio 1.6 (1.1-1.8); Alkaline Phosphatase 101 U/L (38-126); Anion Gap 11.8 mEq/L (5-15); Aspartate Amino Transferase 28 U/L (17-59); Bilirubin,Total 0.9 mg/dl (0.2-1.3); Blood Urea Nitrogen 13 mg/dl (9-20); Carbon Dioxide 22 mmol/L (22.0-30.0); Estimated Glomerular Filt Rate 83 ml/min (>60); GFR (African American) 101 ML/MIN (>60); Globulin 2.8 g/dL (1.3-3.2); Total Protein,Serum 7.3 g/dl (6.3-8.2)
[2024-03-14 15:09] VITALS: BMI 31.9
[2024-03-14 15:09] LABS: Calcium 8.9 mg/dl (8.4-10.2); Glucose 109 mg/dl (74-100)
[2024-03-14 15:13] LABS: INR 1.02 (0.9-1.1); Prothrombin Time 11.4 seconds (10.1-12.5)
[2024-03-14 15:13] LABS: VBG Base Excess -4.2 mmol/L (-2.4-2.3); VBG HCO3 20.2 mmol/L (23-30); VBG PCO2 31.2 mmol/L (35-51); VBG PH 7.43 mmol/L (7.31-7.41); VBG PO2 72.2 mmol/L (28-40); VBG Total CO2 21.1 mmol/L (23-27)
[2024-03-14 15:18] LABS: Creatine Kinase MB 0.7 ng/ml (0.0-2.03); NT Pro Brain Natriuretic Pep. 406 pg/mL (0-125)
[2024-03-14 15:27] LABS: Troponin I < 0.01 ng/ml (0.00-0.034)
[2024-03-14 15:30] VITALS: BP 120/65; PULSE 71
[2024-03-14] MEDS: IPRATROPIUM/ALBUTEROL 3 ML NEB 9 ML IH (15:44)
[2024-03-14 15:53] LABS: Coronavirus 19, PCR Not Detected (NotDetected); Influenza A, PCR Not Detected (NotDetected); Influenza B, PCR Not Detected (NotDetected)
[2024-03-14 16:00] VITALS: BP 117/71; PULSE 91; RESP 18; O2SAT 98
[2024-03-14] MEDS: LIDOCAINE 2% 5ML PF VIAL 5 ML IH (16:08)
[2024-03-14] MEDS: METHYLPREDNISOLONE SOD SUCC 125MG VIAL 125 MG IV (16:25)
[2024-03-14 16:30] VITALS: BP 113/70; PULSE 81; RESP 20; O2SAT 92
[2024-03-14 17:19] VITALS: BP 112/71; PULSE 85; RESP 15; TEMP 37.1; O2SAT 92
[2024-03-14 17:35] LABS: HIV (1&2) Antibody Rapid NONREACTIVE (NONREACTIVE)
[2024-03-14 19:17] LABS: Reflex Lactic Add Lactic Reflex
[2024-03-16 06:40] LABS: HCV Ab Non Reactive (Non Reactive)
== END 2024-03-14 17:21 | disposition home or self-care (01) ==
PROVIDERS: Physician Assistant; Emergency Provider Emergency Medicine; PCP Nurse Practitioner Family
DX: J44.1 Chronic obstructive pulmonary disease with (acute) exacerbation (principal); R07.9 Chest pain, unspecified; R06.02 Shortness of breath; R05.9 Cough, unspecified; F17.210 Nicotine dependence, cigarettes, uncomplicated; I49.3 Ventricular premature depolarization
CPT/HCPCS: 71046; 80053; 82553; 82803; 83880; 84484; 85025; 85610; 86803; 87389; 87636; 93005; 96374; 96375; 99284; J2405; J2919; J7620

== ENCOUNTER 2024-03-28 09:46 | Outpatient (CLI) | payer MEDICARE, OTHER, SELFPAY ==
[2024-03-28 10:45] VITALS: PULSE 64; PULSE 65
[2024-03-28] MEDS: ALBUTEROL 0.083% 2.5 MG/3 ML NEB IH (10:45)
== END 2024-03-28 23:59 | disposition home or self-care (01) ==
LOC: RT 09:46
PROVIDERS: PCP Nurse Practitioner Family; Visit Provider Nurse Practitioner Family
DX: R06.02 Shortness of breath (principal)
CPT/HCPCS: 94060; 94640; 94726; 94729; J7613

== ENCOUNTER 2024-04-17 12:55 | Emergency (ER) | payer MEDICARE, OTHER, SELFPAY ==
[2024-04-17 12:57] VITALS: BP 118/73; PULSE 61; RESP 18; TEMP 36.6; O2SAT 95; BMI 31.9
--- NOTE | 2024-04-17 13:57 | CT_ITS ---
PROCEDURE INFORMATION: Exam: CT Head Without Contrast Exam date and time: 04/17/2024 2:06 PM Age: 68 years old Clinical indication: Pain; Headache; Additional info: SANTOYO, remote h/o brain tumor resection (benign) TECHNIQUE: Imaging protocol: Computed tomography of the head without contrast. Radiation optimization: All CT scans at this facility use at least one of these dose optimization techniques: automated exposure control; mA and/or kV adjustment per patient size (includes targeted exams where dose is matched to clinical indication); or iterative reconstruction. COMPARISON: CT ANGIO HEAD 02/08/2024 2:14 PM FINDINGS: Brain: There is no evidence of acute intracranial hemorrhage, extra-axial collection or locoregional mass effect. There are scattered hypodensities in the periventricular and subcortical white matter. The appearance is nonspecific, but most likely represents chronic small vessel disease in a person of this age Cerebral ventricles: The ventricles, sulci and cisterns are normal in size and configuration for patient's age. No hydrocephalus or midline structure shift Pituitary gland and sella: Sellar/parasellar structures, craniocervical junction and orbits are unremarkable Paranasal sinuses: Visualized sinuses are unremarkable. No fluid levels. Mastoid air cells: Visualized mastoid air cells are well aerated. Orbital cavities: There are postoperative changes in the right orbit. Photon starvation and streaky artifact from surgical hardware partially obscures the assessment of the surrounding structures. Bones: Old postsurgical changes from right suboccipital craniotomy and cranioplasty. No calvarial fracture Soft tissues: Unremarkable. Vasculature: There are calcifications in vertebral arteries and carotid siphons. IMPRESSION: 1. Photon starvation and streaky artifact emanating from right orbital hardware partially obscures the assessment of the surrounding structures. 2. No acute intracranial abnormality. No calvarial fracture.
--- NOTE | 2024-04-17 14:00 | HMH.EDGENADL ---
Discharge Plan Disposition Patient Disposition: Home, Self-Care Prescriptions Prescriptions: No Action aspirin 81 mg tablet,delayed release (DR/EC) 81 mg PO DAILY Qty: 60 3RF alfuzosin 10 mg tablet extended release 24 hr 10 mg PO DAILY ondansetron 4 mg tablet,disintegrating 4 mg PO Q8H PRN (Reason: nausea and vomiting) Qty: 30 0RF ipratropium-albuterol 0.5 mg-3 mg(2.5 mg base)/3 mL solution for nebulization 3 ml inhalation Q6H PRN (Reason: shortness of breath or wheezing) Qty: 90 1RF nitroglycerin 0.4 mg tablet, sublingual 0.4 mg SL Q5M PRN (Reason: chest pain) Qty: 25 0RF Rx Instructions: do not exceed 3 doses per episode cetirizine 10 mg tablet See Rx Instructions .ROUTE .COMPLEX Qty: 30 3RF Dose Instruction: TAKE 1 TABLET BY MOUTH ONCE DAILY NEEDED FOR ALLERGY SYMPTOMS Rx Instructions: TAKE 1 TABLET BY MOUTH ONCE DAILY NEEDED FOR ALLERGY SYMPTOMS fluticasone propionate [Flonase Allergy Relief] 50 mcg/actuation spray,suspension 1 spray INTRANASAL DAILY Qty: 16 2RF Rx Instructions: administer into each nostril sildenafil (pulm.hypertension) 20 mg tablet See Rx Instructions .ROUTE .COMPLEX Qty: 30 4RF Dose Instruction: TAKE 1 TABLET DAILY NEEDED FOR SEXUAL ACTIVITY; ADMINISTER DOSES AT LEAST 4-6 HOURS APART Rx Instructions: TAKE 1 TABLET DAILY NEEDED FOR SEXUAL ACTIVITY; ADMINISTER DOSES AT LEAST 4-6 HOURS APART losartan 50 mg tablet See Rx Instructions .ROUTE .COMPLEX Qty: 30 11RF Dose Instruction: TAKE 1 TABLET BY MOUTH ONCE DAILY Rx Instructions: TAKE 1 TABLET BY MOUTH ONCE DAILY metoprolol succinate 25 mg tablet extended release 24 hr See Rx Instructions .ROUTE .COMPLEX Qty: 30 11RF Dose Instruction: TAKE 1 TABLET BY MOUTH ONCE DAILY Rx Instructions: TAKE 1 TABLET BY MOUTH ONCE DAILY (DME) Accu-Chek Guide test strips Strip See Rx Instructions .ROUTE .COMPLEX Qty: 50 3RF Dose Instruction: TEST TWICE DAILY Rx Instructions: TEST TWICE DAILY methocarbamol 500 mg tablet See Rx Instructions .ROUTE .COMPLEX Qty: 30 0RF Dose Instruction: TAKE 1 TABLET BY MOUTH THREE TIMES DAILY NEEDED FOR MUSCLE RELAXER Rx Instructions: TAKE 1 TABLET BY MOUTH THREE TIMES DAILY NEEDED FOR MUSCLE RELAXER benzonatate 100 mg capsule 100 mg PO TID PRN (Reason: cough) Qty: 30 0RF metformin 500 mg tablet See Rx Instructions .ROUTE .COMPLEX Qty: 90 1RF Dose Instruction: TAKE 1 TABLET BY MOUTH ONCE DAILY FOR SUGAR Rx Instructions: TAKE 1 TABLET BY MOUTH ONCE DAILY FOR SUGAR ranolazine 500 mg tablet extended release 12 hr See Rx Instructions .ROUTE .COMPLEX Qty: 180 1RF Dose Instruction: TAKE 1 TABLET BY MOUTH TWICE DAILY Rx Instructions: TAKE 1 TABLET BY MOUTH TWICE DAILY omeprazole 40 mg capsule,delayed release(DR/EC) See Rx Instructions .ROUTE .COMPLEX Qty: 90 1RF Dose Instruction: TAKE 1 CAPSULE BY MOUTH ONCE DAILY FIRST THING IN MORNING BEFORE EATING ANY FOOD. Rx Instructions: TAKE 1 CAPSULE BY MOUTH ONCE DAILY FIRST THING IN MORNING BEFORE EATING ANY FOOD. amlpjlrh-nydzdtgjfu-knzzwwukx 3.5-400-10,000 wu-bngs-rhtd/g ointment 1 applic OPHTHALMIC QID Qty: 3.5 0RF atorvastatin 40 mg tablet See Rx Instructions .ROUTE .COMPLEX Qty: 90 1RF Rx Instructions: TAKE ONE TABLET BY MOUTH EVERY NIGHT AT BEDTIME FOR CHOLESTEROL albuterol sulfate 90 mcg/actuation HFA aerosol inhaler 2 puff INHALATION Q4H Qty: 8.5 3RF hydrochlorothiazide 12.5 mg capsule See Rx Instructions .ROUTE .COMPLEX Qty: 90 3RF Dose Instruction: TAKE 1 CAPSULE BY MOUTH ONCE DAILY FOR FLUID Rx Instructions: TAKE 1 CAPSULE BY MOUTH ONCE DAILY FOR FLUID levothyroxine 75 mcg tablet See Rx Instructions .ROUTE .COMPLEX Qty: 30 1RF Dose Instruction: TAKE 1 TABLET BY MOUTH ONCE DAILY Rx Instructions: TAKE 1 TABLET BY MOUTH ONCE DAILY bupropion HCl 75 mg tablet 75 mg PO BID sucralfate 100 mg/mL suspension 10 ml PO QID 10 Days Qty: 400 0RF Rx Instructions: Take 1 dose before each meal and 1 dose before bed at night. prednisone 20 mg tablet 40 mg PO DAILY 5 Days Qty: 11 0RF Rx Instructions: Please take 60 mg (3 tablets), on the first day 03/15/2024, then 40 mg (2 tablets), for 5 days azithromycin 500 mg tablet 500 mg PO DAILY 5 Days Qty: 5 0RF Rx Instructions: start on day 2 of therapy Referrals Follow up/Referrals: Mehul Winston APRN [Primary Care Provider] - See instructions Activity Restrictions/Add. Instructions Additional Instructions/Restrictions: No obvious evidence of recurrence of any type of tumor or acute abnormality from a neurologic standpoint. Please follow-up with your primary care doctor or neurosurgeon for your normal surveillance otherwise you may follow-up with your primary care doctor and return with any worsening symptoms. Clinical Impressions Clinical Impression: Headache Print Language Print Language: Occitan Discharge ED Provider: Chaka Calderon General Adult HPI General Chief complaint: Headache Stated complaint: headache has brain tumor removed 20 years ago Time Seen by Provider: 04/17/24 13:44 Mode of Arrival: Ambulatory Source of Information: Patient Limitations: No Limitations Description of Symptoms (Recalled from ER Triage Doc. by RN): bad SANTOYO for the last week but got really bad last night, tylenol did not help. called pcp this morning and they told him to come to the er since his previous maribel tumor removal and his little sister recently of a brain tumor. History of Present Illness HPI narrative: Patient is a 68-year-old male presented today with a headache. He has a history of a brain tumor that was benign and resected 20 years ago he is unsure of exactly what type of tumor this was. States he is followed at [facility] has MRIs every few years most recently 2 years ago without any recurrence. His baby sister he states recently from a brain tumor he has had a headache and he wanted to get checked out today. No new or different neurologic symptoms he has chronic right-sided facial weakness. No fevers chills neck stiffness etc. Related Data Home Medications ?Medication ?Instructions ?Recorded ?Confirmed bupropion HCl 75 mg tablet 75 mg PO BID . 12/08/22 03/21/24 alfuzosin 10 mg tablet,extended 10 mg PO DAILY Prostate/urinary 02/19/23 03/21/24 release 24 hr reten. Previous Rx's ?Medication ?Instructions ?Recorded aspirin 81 mg tablet,delayed 81 mg PO DAILY Heart health #60 06/23/21 release tabs nitroglycerin 0.4 mg sublingual 0.4 mg sublingual Q5M PRN chest 07/01/23 tablet pain #25 tabs sildenafil (pulm.hypertension) 20 See Rx Instructions .Route 10/06/23 mg tablet .COMPLEX #30 tabs losartan 50 mg tablet See Rx Instructions .Route 10/20/23 .COMPLEX #30 tabs metoprolol succinate 25 mg See Rx Instructions .Route 10/20/23 tablet,extended release 24 hr .COMPLEX #30 tabs blood sugar diagnostic (Accu-Chek #50 ea 10/25/23 Guide test strips) ondansetron 4 mg disintegrating 4 mg PO Q8H PRN nausea and 11/04/23 tablet vomiting #30 tabs methocarbamol 500 mg tablet See Rx Instructions .Route 11/12/23 .COMPLEX #30 tabs benzonatate 100 mg capsule 100 mg PO TID PRN cough #30 caps 11/26/23 metformin 500 mg tablet See Rx Instructions .Route 01/10/24 .COMPLEX #90 tabs sucralfate 100 mg/mL oral 10 ml PO QID 10 days #400 mL 02/09/24 suspension ranolazine 500 mg tablet,extended See Rx Instructions .Route 02/10/24 release,12 hr .COMPLEX #180 tabs cetirizine 10 mg tablet See Rx Instructions .Route 02/15/24 .COMPLEX #30 tabs fluticasone propionate 50 1 spray intranasal DAILY . #16 02/15/24 mcg/actuation nasal grams spray,suspension (Flonase Allergy Relief) omeprazole 40 mg capsule,delayed See Rx Instructions .Route 03/01/24 release .COMPLEX #90 caps wjzptyvu-ilqqrvhzam-xmwljhyc 3.5 1 applic ophthalmic (eye) QID . 03/03/24 mg-400 unit-10,000 unit/gram eye #3.5 grams oint atorvastatin 40 mg tablet See Rx Instructions .Route 03/13/24 .COMPLEX Cholesterol #90 tabs azithromycin 500 mg tablet 500 mg PO DAILY 5 days #5 tabs 03/14/24 prednisone 20 mg tablet 40 mg (2 x 20 mg) PO DAILY 5 days 03/14/24 #11 tabs albuterol sulfate 90 mcg/actuation 2 puff inhalation Q4H Asthma #8.5 03/20/24 aerosol inhaler grams ipratropium 0.5 mg-albuterol 3 mg 3 ml inhalation Q6H PRN shortness 03/21/24 (2.5 mg base)/3 mL nebulization of breath or wheezing #90 mL soln hydrochlorothiazide 12.5 mg capsule See Rx Instructions .Route 04/10/24 .COMPLEX #90 caps levothyroxine 75 mcg tablet See Rx Instructions .Route 04/10/24 .COMPLEX #30 tabs Allergies Allergy/AdvReac Type Severity Reaction Status Date / Time hydromorphone [From Dilaudid] Allergy Severe Anaphylaxis Verified 03/21/24 15:12 latex [LATEX] Allergy Unknown Unknown Verified 03/21/24 15:12 allergy reaction Penicillins [PENICILLINS] Allergy Unknown Unknown Verified 03/21/24 15:12 allergy reaction Sulfa (Sulfonamide Allergy Unknown Unknown Verified 03/21/24 15:12 Antibiotics) allergy [SULFA (SULFONAMIDE reaction ANTIBIOTICS)] [facility] Disclaimer: The information contained in this section may have been updated after the patient was seen, as this information can be updated by other users. 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 TSH has not been drawn for some time we will check that today. Ingrown right big toenail Ingrown left big toenail Foot pain Wrist pain Rib pain on left side Left radial head fracture Diabetes mellitus Hypertensive heart disease Hyperlipidemia Gigi has not had a lipid panel drawn in some time. We will draw 1 today and he will continue his atorvastatin for now. Abdominal aortic aneurysm Aneurysm of ascending aorta Surgical History Hx of eye surgery gold weight to help close eyelid Hx of brain surgery tumor S/P AAA repair NOVEMBER 2021. Stented coronary artery Family History Other Family history of cancer Family history of diabetes mellitus type II Family history of myocardial infarction Social History Smoking Status: Never smoker how long ago did patient quit smokin years second hand exposure: Yes alcohol intake: former counseling provided: none substance use type: marijuana current occupational status: retired Travel in the last 8 weeks: None household members: other housing: house marital status: legally current occupational exposures/hazards: No caffeine: Yes physical activity: none do you feel safe at home: Yes victim of physical abuse: No victim of emotional abuse: No victim of sexual abuse: No Other Medical History Have you received the Flu Vaccine for this season: No Have you received the Pneumonia Vaccine: No ROS Obtained: Yes All systems reviewed & no additional complaints except as documented Physical Exam General General appearance: alert and in no apparent distress Respiratory Respiratory exam: Present normal lung sounds bilaterally Cardiovascular Cardiovascular exam: Present regular rate and normal rhythm Neurological Exam Neurological exam: Present alert, oriented X3 and normal gait; Absent CN II-XII intact (Normal other than 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 Luis Felipe Inquiry Pt receiving controlled substance: No Luis Felipe was queried for this patient: No Vital Signs: 04/17/24 12:57 Temperature 97.8 F Temperature Source Oral Pulse Rate [Left Radial] 61 Respiratory Rate 18 Blood Pressure [Left Arm] 118/73 Blood Pressure Mean [Left Arm] 88 02 Sat by Pulse Oximetry 95 Oxygen Delivery Method Room Air Orders (Tests/Meds): ED MEDICATIONS Discontinued Medications Generic Name Dose Route Start Last Admin Trade Name Freq PRN Reason Stop Dose Admin Diphenhydramine HCl 25 mg 04/17/24 13:58 04/17/24 14:05 Diphenhydramine 50mg/Ml Vial IV 04/17/24 13:59 25 mg ONCE ONE Administration Lactated Ringer's 1,000 mls @ 999 mls/hr 04/17/24 14:00 04/17/24 14:05 Lactated Ringer's 1000 Ml Bag IV 04/17/24 15:00 999 mls/hr .Q1H1M EZ Administration Ketorolac Tromethamine 15 mg 04/17/24 13:58 04/17/24 14:04 Ketorolac 30mg/Ml Vial IV 04/17/24 13:59 15 mg ONCE ONE Administration Prochlorperazine Edisylate 10 mg 04/17/24 13:58 04/17/24 14:05 Prochlorperazine 10mg/2ml Vial IV 04/17/24 13:59 10 mg ONCE ONE Administration ORDERS Category Date Time Status CT head/brain wo con Stat Cat Scan 04/17/24 13:57 Completed Medical Decision Narrative: 68-year-old with nonfocal from an acute standpoint neurologic exam with a 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 States he has got a chronic headache from having a brain tumor that was resected 20 years ago but with his baby sister dying recently of a brain cancer and he has not had any surveillance imaging for the last several years he wanted to get checked out today. Will give him a migraine cocktail and get a noncontrasted CT scan but will still advise that he follow-up with his physicians that are keeping an eye on this if the CT today is unremarkable. He is agreeable to this plan. I do not suspect other pathology such as vascular abnormalities etc. Reassessment 321 patient feeling much better symptomatically CT scan performed to person interpreted which shows no acute abnormality specifically no evidence of any recurrence of a tumor or vasogenic edema he has been advised to follow-up with his physicians outpatient for continued surveillance with MRI and to return with any significant worsening of symptoms. He was discharged in stable and improved condition. Critical Care Critical Care Time Critical Care Time: No
[2024-04-17] MEDS: KETOROLAC 30MG/ML VIAL 15 MG IV (14:04)
[2024-04-17] MEDS: diphenhydrAMINE 50MG/ML VIAL 25 MG IV (14:05)
[2024-04-17] MEDS: LACTATED RINGERS 1000ML 1,000 ML 999 ML IV (14:05)
[2024-04-17] MEDS: PROCHLORPERAZINE 10MG/2ML VIAL 10 MG IV (14:05)
[2024-04-17 15:30] VITALS: BP 155/80; PULSE 57; RESP 18; TEMP 36.7; O2SAT 97
== END 2024-04-17 15:32 | disposition home or self-care (01) ==
PROVIDERS: Emergency Provider Student in an Organized Health Care Education/Training Program; PCP Nurse Practitioner Family
DX: R51.9 Headache, unspecified (principal)
CPT/HCPCS: 70450; 96361; 96374; 96375; 99284; J0780; J1200; J1885; J7120

== ENCOUNTER 2024-08-01 11:43 | Emergency (ER) | payer MEDICARE, OTHER, SELFPAY ==
[2024-08-01] VITALS (9 sets, daily range): BP systolic 111–178; BP diastolic 69–98; PULSE 63–83; RESP 11–20; TEMP 36.8–37.1; O2SAT 91–96; BMI 26.6
--- NOTE | 2024-08-01 11:45 | ECG_ITS ---
APPROVED REPORT Exam: Resting ECG HR:81 bpm ECG Measurements Heart Rate 81 AXES CO 156 P 24 QRSd 95 QRS -31 QT 384 T 31 QTc 421 Conclusion SINUS RHYTHM LEFT AXIS DEVIATION [QRS AXIS < -30] MINIMAL VOLTAGE CRITERIA FOR LVH, CONSIDER NORMAL VARIANT [MEETS CRITERIA IN ONE OF: R(aVL), S(V1), R(V5), R(V5/V6)+S(V1)] ABNORMAL ECG Electronically signed by : LIV LILLY, 08/01/2024 16:26:03
--- NOTE | 2024-08-01 12:04 | ED_ITS ---
<Statement entered by King Shetty MD - 08/01/24 16:16> I was consulted by the ANTWON, and we discussed the complexity of the problems being addressed. I approved the treatment and management plan for this patient's care in the emergency department, thus performing a substantive portion of the medical decision making. Hematologic labs reviewed by me and are nonactionable. King Shetty MD Discharge Plan Disposition Patient Disposition: Home, Self-Care Condition: Good Prescriptions Prescriptions: No Action aspirin 81 mg tablet,delayed release (DR/EC) 81 mg PO DAILY Qty: 60 3RF alfuzosin 10 mg tablet extended release 24 hr 10 mg PO DAILY ipratropium-albuterol 0.5 mg-3 mg(2.5 mg base)/3 mL solution for nebulization 3 ml inhalation Q6H PRN (Reason: shortness of breath or wheezing) Qty: 90 1RF nitroglycerin 0.4 mg tablet, sublingual 0.4 mg SL Q5M PRN (Reason: chest pain) Qty: 25 0RF Rx Instructions: do not exceed 3 doses per episode cetirizine 10 mg tablet See Rx Instructions .ROUTE .COMPLEX Qty: 30 3RF Dose Instruction: TAKE 1 TABLET BY MOUTH ONCE DAILY NEEDED FOR ALLERGY SYMPTOMS Rx Instructions: TAKE 1 TABLET BY MOUTH ONCE DAILY NEEDED FOR ALLERGY SYMPTOMS fluticasone propionate [Flonase Allergy Relief] 50 mcg/actuation spray,suspension 1 spray INTRANASAL DAILY Qty: 16 2RF Rx Instructions: administer into each nostril Ubrelvy 100 mg tablet 100 mg PO ONCE Qty: 10 2RF ondansetron HCl 4 mg tablet 4 mg PO Q8H Qty: 60 1RF sildenafil (pulm.hypertension) 20 mg tablet See Rx Instructions .ROUTE .COMPLEX Qty: 30 4RF Dose Instruction: TAKE 1 TABLET DAILY NEEDED FOR SEXUAL ACTIVITY; ADMINISTER DOSES AT LEAST 4-6 HOURS APART Rx Instructions: TAKE 1 TABLET DAILY NEEDED FOR SEXUAL ACTIVITY; ADMINISTER DOSES AT LEAST 4-6 HOURS APART losartan 50 mg tablet See Rx Instructions .ROUTE .COMPLEX Qty: 30 11RF Dose Instruction: TAKE 1 TABLET BY MOUTH ONCE DAILY Rx Instructions: TAKE 1 TABLET BY MOUTH ONCE DAILY metoprolol succinate 25 mg tablet extended release 24 hr See Rx Instructions .ROUTE .COMPLEX Qty: 30 11RF Dose Instruction: TAKE 1 TABLET BY MOUTH ONCE DAILY Rx Instructions: TAKE 1 TABLET BY MOUTH ONCE DAILY (DME) Accu-Chek Guide test strips Strip See Rx Instructions .ROUTE .COMPLEX Qty: 50 3RF Dose Instruction: TEST TWICE DAILY Rx Instructions: TEST TWICE DAILY methocarbamol 500 mg tablet See Rx Instructions .ROUTE .COMPLEX Qty: 30 0RF Dose Instruction: TAKE 1 TABLET BY MOUTH THREE TIMES DAILY NEEDED FOR MUSCLE RELAXER Rx Instructions: TAKE 1 TABLET BY MOUTH THREE TIMES DAILY NEEDED FOR MUSCLE RELAXER metformin 500 mg tablet See Rx Instructions .ROUTE .COMPLEX Qty: 90 1RF Dose Instruction: TAKE 1 TABLET BY MOUTH ONCE DAILY FOR SUGAR Rx Instructions: TAKE 1 TABLET BY MOUTH ONCE DAILY FOR SUGAR ranolazine 500 mg tablet extended release 12 hr See Rx Instructions .ROUTE .COMPLEX Qty: 180 1RF Dose Instruction: TAKE 1 TABLET BY MOUTH TWICE DAILY Rx Instructions: TAKE 1 TABLET BY MOUTH TWICE DAILY omeprazole 40 mg capsule,delayed release(DR/EC) See Rx Instructions .ROUTE .COMPLEX Qty: 90 1RF Dose Instruction: TAKE 1 CAPSULE BY MOUTH ONCE DAILY FIRST THING IN MORNING BEFORE EATING ANY FOOD. Rx Instructions: TAKE 1 CAPSULE BY MOUTH ONCE DAILY FIRST THING IN MORNING BEFORE EATING ANY FOOD. mvwqzamv-cznipfyybm-jtqwfdqqd 3.5-400-10,000 wh-hwnh-tyys/g ointment 1 applic OPHTHALMIC QID Qty: 3.5 0RF atorvastatin 40 mg tablet See Rx Instructions .ROUTE .COMPLEX Qty: 90 1RF Rx Instructions: TAKE ONE TABLET BY MOUTH EVERY NIGHT AT BEDTIME FOR CHOLESTEROL albuterol sulfate 90 mcg/actuation HFA aerosol inhaler 2 puff INHALATION Q4H Qty: 8.5 3RF hydrochlorothiazide 12.5 mg capsule See Rx Instructions .ROUTE .COMPLEX Qty: 90 3RF Dose Instruction: TAKE 1 CAPSULE BY MOUTH ONCE DAILY FOR FLUID Rx Instructions: TAKE 1 CAPSULE BY MOUTH ONCE DAILY FOR FLUID levothyroxine 75 mcg tablet See Rx Instructions .ROUTE .COMPLEX Qty: 30 1RF Dose Instruction: TAKE 1 TABLET BY MOUTH ONCE DAILY Rx Instructions: TAKE 1 TABLET BY MOUTH ONCE DAILY bupropion HCl 75 mg tablet 75 mg PO BID sucralfate 100 mg/mL suspension 10 ml PO QID 10 Days Qty: 400 0RF Rx Instructions: Take 1 dose before each meal and 1 dose before bed at night. Referrals Follow up/Referrals: Provider,Referral, MD [Primary Care Provider] - See instructions Activity Restrictions/Add. Instructions Additional Instructions/Restrictions: Please follow-up with cardiology your PCP and pulmonology this week. Clinical Impressions Clinical Impression: Chest pain Print Language Print Language: Malay Discharge ED Provider: King Shetty HPI <LOUIE Salazar - Last Filed: 08/01/24 15:37> General Chief Complaint: Chest Pain Stated Complaint: SOA Time Seen by Provider: 08/01/24 11:48 Mode of Arrival: EMS Source of Information: Patient and EMS Limitations: No Limitations Description of Symptoms (Recalled from ER Triage Doc. by RN): pt called 911 for bad headache, n/v, chest pain, and soa. pt has hx of DM, [place], and CVA History of Present Illness HPI narrative: Patient presents for evaluation of multiple complaints but primarily headache chest pain and shortness of air. 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 Prior to departure his blood pressure again was taken and his blood pressure was in the 70 systolic while standing. He was advised to come to the ER however patient stated I am going to go home and smoke a joint and lay down instead . Patient did exactly that and said he felt better. Slept well through the night however when he got up this morning he noted that his blood pressure was approximately 180 systolic. He did not take his nighttime or morning blood pressure medications. Patient states that he has a headache chest pain cough feels more short of air but denies fever chills hemoptysis hematochezia melena nausea vomiting diarrhea. EMS gave the patient nitro en route and on arrival blood pressure now down to 133/98. Related Data Home Medications ?Medication ?Instructions ?Recorded ?Confirmed bupropion HCl 75 mg tablet 75 mg PO BID . 12/08/22 08/01/24 alfuzosin 10 mg tablet,extended 10 mg PO DAILY Prostate/urinary 02/19/23 08/01/24 release 24 hr reten. Previous Rx's ?Medication ?Instructions ?Recorded aspirin 81 mg tablet,delayed 81 mg PO DAILY Heart health #60 06/23/21 release tabs nitroglycerin 0.4 mg sublingual 0.4 mg sublingual Q5M PRN chest 07/01/23 tablet pain #25 tabs sildenafil (pulm.hypertension) 20 See Rx Instructions .Route 10/06/23 mg tablet .COMPLEX #30 tabs losartan 50 mg tablet See Rx Instructions .Route 10/20/23 .COMPLEX #30 tabs metoprolol succinate 25 mg See Rx Instructions .Route 10/20/23 tablet,extended release 24 hr .COMPLEX #30 tabs blood sugar diagnostic (Accu-Chek #50 ea 10/25/23 Guide test strips) methocarbamol 500 mg tablet See Rx Instructions .Route 11/12/23 .COMPLEX #30 tabs metformin 500 mg tablet See Rx Instructions .Route 01/10/24 .COMPLEX #90 tabs sucralfate 100 mg/mL oral 10 ml PO QID 10 days #400 mL 02/09/24 suspension ranolazine 500 mg tablet,extended See Rx Instructions .Route 02/10/24 release,12 hr .COMPLEX #180 tabs cetirizine 10 mg tablet See Rx Instructions .Route 02/15/24 .COMPLEX #30 tabs fluticasone propionate 50 1 spray intranasal DAILY . #16 02/15/24 mcg/actuation nasal grams spray,suspension (Flonase Allergy Relief) omeprazole 40 mg capsule,delayed See Rx Instructions .Route 03/01/24 release .COMPLEX #90 caps vullycdq-yapobzhskk-wyapgjog 3.5 1 applic ophthalmic (eye) QID . 03/03/24 mg-400 unit-10,000 unit/gram eye #3.5 grams oint atorvastatin 40 mg tablet See Rx Instructions .Route 03/13/24 .COMPLEX Cholesterol #90 tabs albuterol sulfate 90 mcg/actuation 2 puff inhalation Q4H Asthma #8.5 03/20/24 aerosol inhaler grams ipratropium 0.5 mg-albuterol 3 mg 3 ml inhalation Q6H PRN shortness 03/21/24 (2.5 mg base)/3 mL nebulization of breath or wheezing #90 mL soln hydrochlorothiazide 12.5 mg capsule See Rx Instructions .Route 04/10/24 .COMPLEX #90 caps levothyroxine 75 mcg tablet See Rx Instructions .Route 04/10/24 .COMPLEX #30 tabs ubrogepant 100 mg tablet (Ubrelvy) 100 mg PO ONCE Migraines #10 tabs 05/02/24 ondansetron HCl 4 mg tablet 4 mg PO Q8H #60 tabs 06/06/24 Allergies Allergy/AdvReac Type Severity Reaction Status Date / Time hydromorphone (From Dilaudid) Allergy Severe Anaphylaxis Verified 08/01/24 13:20 latex (LATEX) Allergy Unknown Unknown Verified 08/01/24 13:20 allergy reaction Penicillins (PENICILLINS) Allergy Unknown Unknown Verified 08/01/24 13:20 allergy reaction Sulfa (Sulfonamide Allergy Unknown Unknown Verified 08/01/24 13:20 Antibiotics) (SULFA allergy (SULFONAMIDE ANTIBIOTICS)) reaction [facility] <LOUIE Salazar - Last Filed: 08/01/24 15:37> [facility] Disclaimer: The information contained in this section may have been updated after the patient was seen, as this information can be updated by other users. 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 TSH has not been drawn for some time we will check that today. Ingrown right big toenail Ingrown left big toenail Foot pain Wrist pain Rib pain on left side Left radial head fracture Diabetes mellitus Hypertensive heart disease Hyperlipidemia Gigi has not had a lipid panel drawn in some time. We will draw 1 today and he will continue his atorvastatin for now. Abdominal aortic aneurysm Aneurysm of ascending aorta Surgical History Hx of eye surgery gold weight to help close eyelid Hx of brain surgery tumor S/P AAA repair NOVEMBER 2021. Stented coronary artery Family History Other Family history of cancer Family history of diabetes mellitus type II Family history of myocardial infarction Social History Smoking Status: Former smoker tobacco type: cigarettes packs per day: 4 how long ago did patient quit smokin years second hand exposure: Yes alcohol intake: former counseling provided: none substance use type: marijuana current occupational status: retired Travel in the last 8 weeks: None household members: other housing: house marital status: legally current occupational exposures/hazards: No caffeine: Yes physical activity: none do you feel safe at home: Yes victim of physical abuse: No victim of emotional abuse: No victim of sexual abuse: No Have you lived/traveled outside [place] in past 30 days?: No Contact w/someone who lives/traveled outside US past 30 days?: No Exposure to someone with infectious disease in past 14 days?: No Do you have a fever (greater than 100.4 F or 38 C)?: No Have you tested positive for COVID-19: No Exposed to someone with COVID-19 in past 14 days?: No Do you have a sore throat?: No Do you have a cough?: No Do you have any weakness?: No Do you have any diarrhea?: No Are you experiencing any unusual bleeding?: No Do you have any muscle aches/pain?: No Do you have any abdominal pain?: No Are you experiencing loss of taste or smell?: No Other Medical History Have you received the Flu Vaccine for this season: No Have you received the Pneumonia Vaccine: No <LOUIE Salazar - Last Filed: 08/01/24 15:37> ROS Obtained: Yes Systems reviewed as appropriate & no additional complaints except as documented Physical Exam <LOUIE Salazar - Last Filed: 08/01/24 15:37> General General appearance: alert and in no apparent distress Respiratory Respiratory exam: Present normal lung sounds bilaterally Cardiovascular Cardiovascular exam: Present regular rate Neurological Exam Neurological exam: Present alert and oriented X3 HEART Score <LOUIE Salazar Last Filed: 08/01/24 15:37> HEART Score HEART Score assessment performed?: Yes History (anamnesis): Slightly suspicious ECG: Non-specific disturbance Age: >65 years Risk factors: Atherosclerosis history Troponin: </= normal limit HEART Score: 5 Critical Care <LOUIE Salazar Last Filed: 08/01/24 15:37> Critical Care Time Critical Care Time: No Medical Decision Making <LOUIE Salazar Last Filed: 08/01/24 15:37> Medical Records Medical records reviewed: Yes I reviewed the patient's medical records. Luis Felipe Inquiry Pt receiving controlled substance: No Vital Signs Vital Signs: 08/01/24 11:43 08/01/24 11:56 08/01/24 12:00 Temperature 98.7 F Temperature Source Oral Pulse Rate 82 78 Pulse Rate [Left Radial] 83 Respiratory Rate 20 13 Blood Pressure 133/98 H Blood Pressure [Right Arm] 178/96 H Blood Pressure Mean [Right Arm] 123 02 Sat by Pulse Oximetry 95 96 Oxygen Delivery Method Room Air Room Air 08/01/24 12:31 08/01/24 13:30 08/01/24 14:00 Temperature Temperature Source Pulse Rate 64 65 63 Pulse Rate [Left Radial] Respiratory Rate 13 13 13 Blood Pressure 111/77 126/69 119/73 Blood Pressure [Right Arm] Blood Pressure Mean [Right Arm] 02 Sat by Pulse Oximetry 96 94 L 91 L Oxygen Delivery Method 08/01/24 14:30 08/01/24 15:00 Temperature Temperature Source Pulse Rate 64 64 Pulse Rate [Left Radial] Respiratory Rate 12 11 L Blood Pressure 115/77 115/76 Blood Pressure [Right Arm] Blood Pressure Mean [Right Arm] 02 Sat by Pulse Oximetry 92 L 93 L Oxygen Delivery Method Lab Data Lab results reviewed: Yes I reviewed the patient's lab results. Labs: Lab Results 08/01/24 11:59: WBC 6.9, RBC 4.51 L, Hgb 13.6 L, Hct 40.9 L, MCV 90.7, MCH 30.2, MCHC 33.3, RDW 13.0, Plt Count 201, MPV 10.1, Neut % (Auto) 50.8, Lymph % (Auto) 39.0, [place] % (Auto) 7.2, Eos % (Auto) 1.7, Baso % (Auto) 1.0, Neut # (Auto) 3.5, Lymph # (Auto) 2.7, [place] # (Auto) 0.5, Eos # (Auto) 0.1, Baso # (Auto) 0.1, Sodium 142, Potassium 4.1, Chloride 107, Carbon Dioxide 25, Anion Gap 14.1, BUN 17, Creatinine 1.10, Estimated Creat Clear 72, Estimated GFR 66, Est GFR ( Amer) 80, Glucose 123 H, Calcium 9.3, Magnesium 1.7, Total Bilirubin 0.7, AST 31, ALT 26, Alkaline Phosphatase 106, Troponin I < 0.01, NT-Pro-B Natriuret Pep 70.9, Total Protein 7.2, Albumin 4.7, Globulin 2.5, A lbumin/Globulin Ratio 1.9 H, Procalcitonin 0.051 08/01/24 12:23: VBG pH 7.39, VBG pCO2 39.6, VBG pO2 93.1 H, VBG HCO3 23.5, VBG Total CO2 24.8, VBG O2 Saturation 97.1 H, VBG Base Excess -1.4, VBG Lactic Acid 2.3 H 08/01/24 12:30: SARS-CoV-2 (PCR) Not detected, Influenza A Untype (PCR) Not detected, Influenza Type B (PCR) Not detected 08/01/24 14:45: Troponin I < 0.01 08/01/24 11:59 08/01/24 11:59 Response Orders (Tests/Meds): ED MEDICATIONS Discontinued Medications Generic Name Dose Route Start Last Admin Trade Name Carmela PRN Reason Stop Dose Admin Acetaminophen 1,000 mg 08/01/24 12:21 08/01/24 12:40 Acetaminophen 500mg Tab PO 08/01/24 12:22 1,000 mg ONCE ONE Administration Albuterol/Ipratropium 3 ml 08/01/24 12:21 08/01/24 12:41 Ipratropium/Albuterol 3 Ml Neb IH 08/01/24 12:22 3 ml ONCE ONE Administration Belladonna Alkaloids 60 ml 08/01/24 13:36 08/01/24 13:42 Belladonna Alkaloids 60 Ml Ml PO 08/01/24 13:37 60 ml ONCE ONE Administration Dexamethasone Sodium Phosphate 10 mg 08/01/24 12:21 08/01/24 12:41 Dexamethasone 4mg/Ml 5ml Mdv IV 08/01/24 12:22 10 mg ONCE ONE Administration Magnesium Sulfate 2 gm in 50 mls @ 50 mls/hr 08/01/24 12:32 08/01/24 12:52 Magnesium Sulfate 2gm/50ml Premix IV 08/01/24 13:31 50 mls/hr ONCE ONE Administration Ketorolac Tromethamine 15 mg 08/01/24 12:21 08/01/24 12:41 Ketorolac 30mg/Ml Vial IV 08/01/24 12:22 15 mg ONCE ONE Administration Ondansetron HCl 4 mg 08/01/24 12:30 08/01/24 12:41 Ondansetron 4mg/2ml Vial IV 08/01/24 12:31 4 mg ONCE ONE Administration ORDERS Category Date Time Status Chest XR 2 view (NOT portable) [XR chest 2V] Stat Exams 08/01/24 12:21 Taken BNP [NT Pro Brain Natriuretic Pep.] Stat Lab 08/01/24 11:59 Completed CBC w/Auto Diff [Complete Blood Count Auto Diff] Stat Lab 08/01/24 11:59 Completed CMP [Comprehensive Metabolic Panel] Stat Lab 08/01/24 11:59 Completed Magnesium Stat Lab 08/01/24 11:59 Completed Procalcitonin Stat Lab 08/01/24 11:59 Completed Rapid PCR Covid and Flu A/B Stat Lab 08/01/24 12:30 Completed Trop I [Troponin I] Stat Lab 08/01/24 11:59 Completed Troponin I Q3H Lab 08/01/24 14:45 Completed Troponin I Q3H Lab 08/01/24 18:30 Ordered VBG [Venous Blood Gas] Stat RT 08/01/24 12:23 Completed MDM Narrative Medical Decision Narrative: In summary patient is a 68-year-old male who presents to the emergency department for evaluation of headache cough shortness of breath and chest pain. Patient is hemodynamically stable with a blood pressure 133/98 pulse 78 with normal sinus rhythm on the bedside monitor respiratory rate is 13 satting at 96% on room air upon arrival, afebrile at 98.7. Physical exam is remarkable for clear breath sounds heard to the bases without adventitious sounds, no reproducible chest pain on palpation, normal heart sounds. Differential diagnosis includes ACS versus PE versus viral or bacterial pneumonia versus COPD exacerbation etc. Initial workup will be conducted with hematologic labs twelve-lead EKG plain film chest x-ray respiratory panel. Initial interventions include Tylenol Toradol DuoNeb Decadron continuous cardiac monitoring and pulse oximetry. Initial workup reviewed by me [hematologic labs are remarkable for... Imaging remarkable for... Urinalysis remarkable for]. Given this the patient was placed in observation status at 1330. Medical necessity for observational status is serial troponins. The patient was provided serial reevaluations continuous cardiac monitoring and pulse oximetry while awaiting results. Second troponin was also undetectable and upon reevaluation prior to discharge patient had complete resolution of his symptoms, blood pressure 115/76.. Thus patient is appropriate discharge with close follow-up with both cardiology pulmonology and his PCP this week.. Total time in observation was 2 hours. <King Shetty MD - Last Filed: 08/01/24 12:09> Vital Signs Vital Signs: 08/01/24 11:43 08/01/24 11:56 08/01/24 12:00 Temperature 98.7 F Temperature Source Oral Pulse Rate 82 78 Pulse Rate [Left Radial] 83 Respiratory Rate 20 13 Blood Pressure 133/98 H Blood Pressure [Right Arm] 178/96 H Blood Pressure Mean [Right Arm] 123 02 Sat by Pulse Oximetry 95 96 Oxygen Delivery Method Room Air Room Air 08/01/24 12:31 08/01/24 13:30 08/01/24 14:00 Temperature Temperature Source Pulse Rate 64 65 63 Pulse Rate [Left Radial] Respiratory Rate 13 13 13 Blood Pressure 111/77 126/69 119/73 Blood Pressure [Right Arm] Blood Pressure Mean [Right Arm] 02 Sat by Pulse Oximetry 96 94 L 91 L Oxygen Delivery Method 08/01/24 14:30 08/01/24 15:00 Temperature Temperature Source Pulse Rate 64 64 Pulse Rate [Left Radial] Respiratory Rate 12 11 L Blood Pressure 115/77 115/76 Blood Pressure [Right Arm] Blood Pressure Mean [Right Arm] 02 Sat by Pulse Oximetry 92 L 93 L Oxygen Delivery Method Lab Data Labs: Lab Results 08/01/24 11:59: WBC 6.9, RBC 4.51 L, Hgb 13.6 L, Hct 40.9 L, MCV 90.7, MCH 30.2, MCHC 33.3, RDW 13.0, Plt Count 201, MPV 10.1, Neut % (Auto) 50.8, Lymph % (Auto) 39.0, [place] % (Auto) 7.2, Eos % (Auto) 1.7, Baso % (Auto) 1.0, Neut # (Auto) 3.5, Lymph # (Auto) 2.7, [place] # (Auto) 0.5, Eos # (Auto) 0.1, Baso # (Auto) 0.1, Sodium 142, Potassium 4.1, Chloride 107, Carbon Dioxide 25, Anion Gap 14.1, BUN 17, Creatinine 1.10, Estimated Creat Clear 72, Estimated GFR 66, Est GFR ( Amer) 80, Glucose 123 H, Calcium 9.3, Magnesium 1.7, Total Bilirubin 0.7, AST 31, ALT 26, Alkaline Phosphatase 106, Troponin I < 0.01, NT-Pro-B Natriuret Pep 70.9, Total Protein 7.2, Albumin 4.7, Globulin 2.5, A lbumin/Globulin Ratio 1.9 H, Procalcitonin 0.051 08/01/24 12:23: VBG pH 7.39, VBG pCO2 39.6, VBG pO2 93.1 H, VBG HCO3 23.5, VBG Total CO2 24.8, VBG O2 Saturation 97.1 H, VBG Base Excess -1.4, VBG Lactic Acid 2.3 H 08/01/24 12:30: SARS-CoV-2 (PCR) Not detected, Influenza A Untype (PCR) Not detected, Influenza Type B (PCR) Not detected 08/01/24 14:45: Troponin I < 0.01 Response Orders (Tests/Meds): ED MEDICATIONS Discontinued Medications Generic Name Dose Route Start Last Admin Trade Name Freq PRN Reason Stop Dose Admin Acetaminophen 1,000 mg 08/01/24 12:21 08/01/24 12:40 Acetaminophen 500mg Tab PO 08/01/24 12:22 1,000 mg ONCE ONE Administration Albuterol/Ipratropium 3 ml 08/01/24 12:21 08/01/24 12:41 Ipratropium/Albuterol 3 Ml Neb IH 08/01/24 12:22 3 ml ONCE ONE Administration Belladonna Alkaloids 60 ml 08/01/24 13:36 08/01/24 13:42 Belladonna Alkaloids 60 Ml Ml PO 08/01/24 13:37 60 ml ONCE ONE Administration Dexamethasone Sodium Phosphate 10 mg 08/01/24 12:21 08/01/24 12:41 Dexamethasone 4mg/Ml 5ml Mdv IV 08/01/24 12:22 10 mg ONCE ONE Administration Magnesium Sulfate 2 gm in 50 mls @ 50 mls/hr 08/01/24 12:32 08/01/24 12:52 Magnesium Sulfate 2gm/50ml Premix IV 08/01/24 13:31 50 mls/hr ONCE ONE Administration Ketorolac Tromethamine 15 mg 08/01/24 12:21 08/01/24 12:41 Ketorolac 30mg/Ml Vial IV 08/01/24 12:22 15 mg ONCE ONE Administration Ondansetron HCl 4 mg 08/01/24 12:30 08/01/24 12:41 Ondansetron 4mg/2ml Vial IV 08/01/24 12:31 4 mg ONCE ONE Administration ORDERS Category Date Time Status Chest XR 2 view (NOT portable) [XR chest 2V] Stat Exams 08/01/24 12:21 Taken BNP [NT Pro Brain Natriuretic Pep.] Stat Lab 08/01/24 11:59 Completed CBC w/Auto Diff [Complete Blood Count Auto Diff] Stat Lab 08/01/24 11:59 Completed CMP [Comprehensive Metabolic Panel] Stat Lab 08/01/24 11:59 Completed Magnesium Stat Lab 08/01/24 11:59 Completed Procalcitonin Stat Lab 08/01/24 11:59 Completed Rapid PCR Covid and Flu A/B Stat Lab 08/01/24 12:30 Completed Trop I [Troponin I] Stat Lab 08/01/24 11:59 Completed Troponin I Q3H Lab 08/01/24 14:45 Completed Troponin I Q3H Lab 08/01/24 18:30 Ordered VBG [Venous Blood Gas] Stat RT 08/01/24 12:23 Completed ECG Data Tracing #1: ECG Narrative: Independently interpreted by me rate is 81, rhythm is regular, axis is borderline leftward deviated, no ST elevation in anatomical contiguous leads, QTc 421.
--- NOTE | 2024-08-01 12:21 | XR_ITS ---
FINAL REPORT CLINICAL HISTORY: sob COMPARISON: 03/14/2024 FINDINGS: 2 views of the chest were obtained . The heart is normal in size. The mediastinum is within normal limits. The lungs are clear. There is no pneumothorax. Osseous structures are unremarkable. IMPRESSION: No acute cardiopulmonary process. Reviewed, Interpreted and Dictated by Bandar Payton MD Transcribed by Yvrose Narayanan Authenticated and [facility]
[2024-08-01 12:34] LABS: Basophils # 0.1 K/mm3 (0-0.2); Eosinophils # 0.1 K/mm3 (0.0-0.4); Eosinophils % 1.7 % (0.1-12.0); Hematocrit 40.9 % (42.0-52.0); Hemoglobin 13.6 g/dL (14.1-18.0); Lymphocytes # 2.7 K/mm3 (0.7-4.5); Mean Corpuscular HGB Conc 33.3 g/dL (31.8-35.4); Mean Corpuscular Hemoglobin 30.2 pg (27.0-31.2); Mean Corpuscular Volume 90.7 fl (80-94); Mean Platelet Volume 10.1 fl (7.4-10.4); Monocytes # 0.5 K/mm3 (0.1-1.0); Monocytes % 7.2 % (1.7-9.3); Neutrophils # 3.5 K/mm3 (1.8-7.8); Neutrophils % 50.8 % (37.0-80.0); Platelet Count 201 K/mm3 (142-424); Red Blood Count 4.51 M/mm3 (4.60-6.20); White Blood Count 6.9 K/mm3 (4.8-10.8)
[2024-08-01 12:38] LABS: VBG Base Excess -1.4 mmol/L (-2.4-2.3); VBG HCO3 23.5 mmol/L (23-30); VBG Oxygen Saturation 97.1 % (50-70); VBG PCO2 39.6 mmol/L (35-51); VBG PH 7.39 mmol/L (7.31-7.41); VBG PO2 93.1 mmol/L (28-40); VBG Total CO2 24.8 mmol/L (23-27)
[2024-08-01 12:39] LABS: Coronavirus 19, PCR Not Detected (NotDetected); Influenza A, PCR Not Detected (NotDetected); Influenza B, PCR Not Detected (NotDetected)
[2024-08-01 12:40] LABS: Alanine Aminotransferase 26 U/L (12-78); Albumin Level 4.7 g/dl (3.5-5.0); Albumin/Globulin Ratio 1.9 (1.1-1.8); Alkaline Phosphatase 106 U/L (38-126); Anion Gap 14.1 mEq/L (5-15); Aspartate Amino Transferase 31 U/L (17-59); Bilirubin,Total 0.7 mg/dl (0.2-1.3); Blood Urea Nitrogen 17 mg/dl (9-20); Calcium 9.3 mg/dl (8.4-10.2); Carbon Dioxide 25 mmol/L (22.0-30.0); Chloride 107 mmol/L (98-107); Creatinine Clearance Estimated 72 mL/min (50-200); Estimated Glomerular Filt Rate 66 ml/min (>60); GFR (African American) 80 ML/MIN (>60); Globulin 2.5 g/dL (1.3-3.2); Glucose 123 mg/dl (74-100); Magnesium 1.7 mg/dl (1.6-2.3); Potassium 4.1 mmoL/L (3.5-5.1); Sodium 142 mmol/L (136-145); Total Protein,Serum 7.2 g/dl (6.3-8.2)
[2024-08-01] MEDS: ACETAMINOPHEN 500MG TAB 1000 MG PO (12:40)
[2024-08-01 12:41] LABS: Lactate Venous 2.3 mmol/L (0.4-2.0)
[2024-08-01] MEDS: IPRATROPIUM/ALBUTEROL 3 ML NEB IH (12:41)
[2024-08-01] MEDS: ONDANSETRON 4MG/2ML VIAL 4 MG IV (12:41)
[2024-08-01] MEDS: DEXAMETHASONE 4MG/ML 5ML MDV 10 MG IV (12:41)
[2024-08-01] MEDS: KETOROLAC 30MG/ML VIAL 15 MG IV (12:41)
[2024-08-01 12:49] LABS: NT Pro Brain Natriuretic Pep. 70.9 pg/mL (0-125)
[2024-08-01] MEDS: MAGNESIUM SULFATE IN WATER 2 GM/50 ML PIGGYBACK IV (12:52)
[2024-08-01 12:55] LABS: Troponin I < 0.01 ng/ml (0.00-0.034)
[2024-08-01 12:57] LABS: Procalcitonin 0.051 ng/mL (0.0-2.0)
[2024-08-01] MEDS: BELLADONNA ALKALOIDS 60 ML ML PO (13:42)
--- NOTE | 2024-08-01 13:44 | PC.NURSE ---
Rounded on the PT. The PT voices that he does not need anything at this time. Call light is within reach of the PT.
--- NOTE | 2024-08-01 15:23 | PC.NURSE ---
ROUNDED ON THE PT. THE PT VOICES THAT HE DOES NOT NEED ANYTHING AT THIS TIME. CALL LIGHT IS WITHIN REACH OF THE PT.
[2024-08-01 15:27] LABS: Troponin I < 0.01 ng/ml (0.00-0.034)
[2024-08-01 16:41] LABS: Reflex Lactic Add Lactic Reflex
== END 2024-08-01 15:44 | disposition home or self-care (01) ==
PROVIDERS: Physician Assistant; Emergency Provider Emergency Medicine
DX: R07.9 Chest pain, unspecified (principal); R06.02 Shortness of breath; R51.9 Headache, unspecified; R11.2 Nausea with vomiting, unspecified; R05.9 Cough, unspecified; E11.9 Type 2 diabetes mellitus without complications; F12.90 Cannabis use, unspecified, uncomplicated; Z79.4 Long term (current) use of insulin; Z87.891 Personal history of nicotine dependence
CPT/HCPCS: 71046; 80053; 82803; 83735; 83880; 84145; 84484; 85025; 87636; 93005; 96365; 96374; 96375; 99284; J1100; J1885; J2405; J3475; J7620

== ENCOUNTER 2024-09-11 13:50 | Outpatient (CLI) | payer MEDICARE, OTHER, SELFPAY ==
[2024-09-11 19:21] LABS: Basophils # 0.1 K/mm3 (0-0.2); Basophils % 0.7 % (0.1-2.0); Eosinophils # 0.1 K/mm3 (0.0-0.4); Eosinophils % 0.9 % (0.1-12.0); Hematocrit 39.6 % (42.0-52.0); Hemoglobin 13.1 g/dL (14.1-18.0); Lymphocytes # 2.5 K/mm3 (0.7-4.5); Lymphocytes % 28.9 % (10-50); Mean Corpuscular HGB Conc 33.1 g/dL (31.8-35.4); Mean Corpuscular Hemoglobin 30.1 pg (27.0-31.2); Mean Platelet Volume 10.6 fl (7.4-10.4); Monocytes # 0.6 K/mm3 (0.1-1.0); Monocytes % 6.4 % (1.7-9.3); Neutrophils # 5.4 K/mm3 (1.8-7.8); Neutrophils % 62.9 % (37.0-80.0); Platelet Count 201 K/mm3 (142-424); Red Blood Count 4.35 M/mm3 (4.60-6.20); Red Cell Distribution Width 13.2 % (11.5-17.5); White Blood Count 8.6 K/mm3 (4.8-10.8)
[2024-09-11 20:27] LABS: Alanine Aminotransferase 24 U/L (12-78); Albumin Level 4.4 g/dl (3.5-5.0); Albumin/Globulin Ratio 1.8 (1.1-1.8); Alkaline Phosphatase 101 U/L (38-126); Anion Gap 12.3 mEq/L (5-15); Aspartate Amino Transferase 25 U/L (17-59); Bilirubin,Direct 0.2 mg/dl (0.0-0.4); Bilirubin,Indirect 0.5 mg/dL (0.0-0.9); Bilirubin,Total 0.7 mg/dl (0.2-1.3); Bilirubin,Unconjugated 0.5 mg/dL (0.0-1.1); Blood Urea Nitrogen 15 mg/dl (9-20); Calcium 9.4 mg/dl (8.4-10.2); Carbon Dioxide 24 mmol/L (22.0-30.0); Chloride 107 mmol/L (98-107); Chol/HDL Ratio 4.5 (1-3.5); Cholesterol 154 mg/dl (140-200); Estimated Glomerular Filt Rate 74 ml/min (>60); GFR (African American) 89 ML/MIN (>60); Globulin 2.5 g/dL (1.3-3.2); Glucose 110 mg/dl (74-100); HDL Cholesterol 34 mg/dl (40-60); Potassium 4.3 mmoL/L (3.5-5.1); Sodium 139 mmol/L (136-145); Total Protein,Serum 6.9 g/dl (6.3-8.2); Triglycerides 160 mg/dl (30-150); VLDL Cholesterol 32 mg/dL (0-40)
[2024-09-11 20:39] LABS: Direct LDL Cholesterol 83.42 mg/dL (100-129)
[2024-09-11 20:58] LABS: Free T4 (Free Thyroxine) 1.09 ng/dl (0.78-2.19)
[2024-09-11 21:02] LABS: Thyroid Stimulating Hormone 2.97 uIU/mL (0.465-4.68)
[2024-09-11 21:37] LABS: Prostate Specific Ag Screen 1.8 ng/ml (0.0-4.0)
== END 2024-09-11 23:59 | disposition home or self-care (01) ==
LOC: LAB.DROPOF 09-12 15:20
PROVIDERS: PCP Family Medicine; Visit Provider Family Medicine
DX: G43.909 Migraine, unspecified, not intractable, without status migrainosus (principal); R07.9 Chest pain, unspecified; R06.02 Shortness of breath; E03.9 Hypothyroidism, unspecified; Z12.5 Encounter for screening for malignant neoplasm of prostate
CPT/HCPCS: 80053; 80061; 80076; 84439; 84443; 85025; G0103

== ENCOUNTER 2024-09-17 11:12 | Emergency (ER) | payer MEDICARE, OTHER, SELFPAY ==
[2024-09-17] VITALS (10 sets, daily range): BP systolic 106–164; BP diastolic 65–111; PULSE 55–69; RESP 10–18; TEMP 36.6–36.7; O2SAT 92–100; BMI 32.2
--- NOTE | 2024-09-17 11:14 | ECG_ITS ---
APPROVED REPORT Exam: Resting ECG HR:63 bpm ECG Measurements Heart Rate 63 AXES NJ 171 P 62 QRSd 101 QRS -34 QT 421 T 57 QTc 429 Conclusion SINUS RHYTHM LEFT AXIS DEVIATION [QRS AXIS < -30] MINIMAL VOLTAGE CRITERIA FOR LVH, CONSIDER NORMAL VARIANT [MEETS CRITERIA IN ONE OF: R(aVL), S(V1), R(V5), R(V5/V6)+S(V1)] ABNORMAL ECG No STEMI Electronically signed by : NEYDA BECERRIL, 09/18/2024 02:31:19
--- NOTE | 2024-09-17 11:16 | ED_ITS ---
Discharge Plan Disposition Patient Disposition: Home, Self-Care Prescriptions Prescriptions: No Action aspirin 81 mg tablet,delayed release (DR/EC) 81 mg PO DAILY Qty: 60 3RF alfuzosin 10 mg tablet extended release 24 hr 10 mg PO DAILY ipratropium-albuterol 0.5 mg-3 mg(2.5 mg base)/3 mL solution for nebulization 3 ml inhalation Q6H PRN (Reason: shortness of breath or wheezing) Qty: 90 1RF nitroglycerin 0.4 mg tablet, sublingual 0.4 mg SL Q5M PRN (Reason: chest pain) Qty: 25 0RF Rx Instructions: do not exceed 3 doses per episode cetirizine 10 mg tablet See Rx Instructions .ROUTE .COMPLEX Qty: 30 3RF Dose Instruction: TAKE 1 TABLET BY MOUTH ONCE DAILY NEEDED FOR ALLERGY SYMPTOMS Rx Instructions: TAKE 1 TABLET BY MOUTH ONCE DAILY NEEDED FOR ALLERGY SYMPTOMS fluticasone propionate [Flonase Allergy Relief] 50 mcg/actuation spray,suspension 1 spray INTRANASAL DAILY Qty: 16 2RF Rx Instructions: administer into each nostril Ubrelvy 100 mg tablet 100 mg PO ONCE Qty: 10 2RF ondansetron HCl 4 mg tablet 4 mg PO Q8H Qty: 60 1RF doxycycline monohydrate 100 mg tablet 100 mg PO BID 7 Days Qty: 14 0RF methylprednisolone [Medrol (Bakari)] 4 mg tablets,dose pack See Rx Instructions PO PER PKG DIR Qty: 21 0RF Rx Instructions: PO PER PKG DIR sildenafil (pulm.hypertension) 20 mg tablet See Rx Instructions .ROUTE .COMPLEX Qty: 30 4RF Dose Instruction: TAKE 1 TABLET DAILY NEEDED FOR SEXUAL ACTIVITY; ADMINISTER DOSES AT LEAST 4-6 HOURS APART Rx Instructions: TAKE 1 TABLET DAILY NEEDED FOR SEXUAL ACTIVITY; ADMINISTER DOSES AT LEAST 4-6 HOURS APART losartan 50 mg tablet See Rx Instructions .ROUTE .COMPLEX Qty: 30 11RF Dose Instruction: TAKE 1 TABLET BY MOUTH ONCE DAILY Rx Instructions: TAKE 1 TABLET BY MOUTH ONCE DAILY metoprolol succinate 25 mg tablet extended release 24 hr See Rx Instructions .ROUTE .COMPLEX Qty: 30 11RF Dose Instruction: TAKE 1 TABLET BY MOUTH ONCE DAILY Rx Instructions: TAKE 1 TABLET BY MOUTH ONCE DAILY (DME) Accu-Chek Guide test strips Strip See Rx Instructions .ROUTE .COMPLEX Qty: 50 3RF Dose Instruction: TEST TWICE DAILY Rx Instructions: TEST TWICE DAILY methocarbamol 500 mg tablet See Rx Instructions .ROUTE .COMPLEX Qty: 30 0RF Dose Instruction: TAKE 1 TABLET BY MOUTH THREE TIMES DAILY NEEDED FOR MUSCLE RELAXER Rx Instructions: TAKE 1 TABLET BY MOUTH THREE TIMES DAILY NEEDED FOR MUSCLE RELAXER ranolazine 500 mg tablet extended release 12 hr See Rx Instructions .ROUTE .COMPLEX Qty: 180 1RF Dose Instruction: TAKE 1 TABLET BY MOUTH TWICE DAILY Rx Instructions: TAKE 1 TABLET BY MOUTH TWICE DAILY omeprazole 40 mg capsule,delayed release(DR/EC) See Rx Instructions .ROUTE .COMPLEX Qty: 90 1RF Dose Instruction: TAKE 1 CAPSULE BY MOUTH ONCE DAILY FIRST THING IN MORNING BEFORE EATING ANY FOOD. Rx Instructions: TAKE 1 CAPSULE BY MOUTH ONCE DAILY FIRST THING IN MORNING BEFORE EATING ANY FOOD. zpnralmq-okfgoncmbo-pfgrynxxk 3.5-400-10,000 hu-wlet-pmwi/g ointment 1 applic OPHTHALMIC QID Qty: 3.5 0RF atorvastatin 40 mg tablet See Rx Instructions .ROUTE .COMPLEX Qty: 90 1RF Rx Instructions: TAKE ONE TABLET BY MOUTH EVERY NIGHT AT BEDTIME FOR CHOLESTEROL albuterol sulfate 90 mcg/actuation HFA aerosol inhaler 2 puff INHALATION Q4H Qty: 8.5 3RF hydrochlorothiazide 12.5 mg capsule See Rx Instructions .ROUTE .COMPLEX Qty: 90 3RF Dose Instruction: TAKE 1 CAPSULE BY MOUTH ONCE DAILY FOR FLUID Rx Instructions: TAKE 1 CAPSULE BY MOUTH ONCE DAILY FOR FLUID levothyroxine 75 mcg tablet See Rx Instructions .ROUTE .COMPLEX Qty: 30 1RF Dose Instruction: TAKE 1 TABLET BY MOUTH ONCE DAILY Rx Instructions: TAKE 1 TABLET BY MOUTH ONCE DAILY metformin 500 mg tablet See Rx Instructions .ROUTE .COMPLEX Qty: 90 0RF Dose Instruction: TAKE 1 TABLET BY MOUTH ONCE DAILY FOR SUGAR Rx Instructions: TAKE 1 TABLET BY MOUTH ONCE DAILY FOR SUGAR bupropion HCl 75 mg tablet 75 mg PO BID sucralfate 100 mg/mL suspension 10 ml PO QID 10 Days Qty: 400 0RF Rx Instructions: Take 1 dose before each meal and 1 dose before bed at night. Referrals Follow up/Referrals: Provider,Referral, [Primary Care Provider] - See instructions Activity Restrictions/Add. Instructions Additional Instructions/Restrictions: Schedule a follow-up appointment with your surgeons as soon as possible for repeat MRI. Also schedule an appointment with your primary care provider for follow-up on an incidental nodule found on your CT scan today in your lungs. We recommend getting a repeat image in 3 months to monitor this nodule. Return to the emergency department for new or worsening symptoms including inability to tolerate oral intake or worsening headache. Clinical Impressions Clinical Impression: SOB (shortness of breath) Headache Qualifiers: Headache type: unspecified Headache chronicity pattern: unspecified pattern I ntractability: not intractable Qualified Code(s): R51.9 - Headache, unspecified Print Language Print Language: Citizen Of [place] Discharge ED Provider: Radha Soriano General Adult HPI General Chief complaint: Chest Pain Stated complaint: chest pain Time Seen by Provider: 09/17/24 11:15 History of Present Illness HPI narrative: Patient is a 69-year-old with past medical history significant for coronary artery disease, marijuana use, AAA repair diabetes, ascending aortic aneurysm, COPD, CVA with residual right facial paralysis, benign brain tumor removed in 1995 presents to the emergency department with chest pain, headache and abdominal pain. Chest pain is worse with deep inspiration associated with clear phlegm and cough that started 3 days ago has progressively worsened. No congestion fever hemoptysis. Chest pain is not worsened by exertion or position. Pain radiates to the left shoulder. Was supposed to see a shaper machine hand for stress test but missed appointment. Headache started today is 10 out of 10 feels like a pressure like pain going from the back of his head to the front associated with nausea. Patient also has abdominal pain the left lower pain associated with constipation nausea no dysuria no flank pain. Patient was supposed to follow-up with his neurosurgeon a year ago but missed his appointment. No weight loss no lightheaded or dizziness, no visual changes. Related Data Home Medications ?Medication ?Instructions ?Recorded ?Confirmed bupropion HCl 75 mg tablet 75 mg PO BID . 12/08/22 09/11/24 alfuzosin 10 mg tablet,extended 10 mg PO DAILY Prostate/urinary 02/19/23 09/11/24 release 24 hr reten. Previous Rx's ?Medication ?Instructions ?Recorded aspirin 81 mg tablet,delayed 81 mg PO DAILY Heart health #60 06/23/21 release tabs nitroglycerin 0.4 mg sublingual 0.4 mg sublingual Q5M PRN chest 07/01/23 tablet pain #25 tabs sildenafil (pulm.hypertension) 20 See Rx Instructions .Route 10/06/23 mg tablet .COMPLEX #30 tabs losartan 50 mg tablet See Rx Instructions .Route 10/20/23 .COMPLEX #30 tabs metoprolol succinate 25 mg See Rx Instructions .Route 10/20/23 tablet,extended release 24 hr .COMPLEX #30 tabs blood sugar diagnostic (Accu-Chek #50 ea 10/25/23 Guide test strips) methocarbamol 500 mg tablet See Rx Instructions .Route 11/12/23 .COMPLEX #30 tabs sucralfate 100 mg/mL oral 10 ml PO QID 10 days #400 mL 02/09/24 suspension ranolazine 500 mg tablet,extended See Rx Instructions .Route 02/10/24 release,12 hr .COMPLEX #180 tabs cetirizine 10 mg tablet See Rx Instructions .Route 02/15/24 .COMPLEX #30 tabs fluticasone propionate 50 1 spray intranasal DAILY . #16 02/15/24 mcg/actuation nasal grams spray,suspension (Flonase Allergy Relief) omeprazole 40 mg capsule,delayed See Rx Instructions .Route 03/01/24 release .COMPLEX #90 caps ydcyhnnq-ligwignank-yoetekgy 3.5 1 applic ophthalmic (eye) QID . 03/03/24 mg-400 unit-10,000 unit/gram eye #3.5 grams oint atorvastatin 40 mg tablet See Rx Instructions .Route 03/13/24 .COMPLEX Cholesterol #90 tabs albuterol sulfate 90 mcg/actuation 2 puff inhalation Q4H Asthma #8.5 03/20/24 aerosol inhaler grams ipratropium 0.5 mg-albuterol 3 mg 3 ml inhalation Q6H PRN shortness 03/21/24 (2.5 mg base)/3 mL nebulization of breath or wheezing #90 mL soln hydrochlorothiazide 12.5 mg capsule See Rx Instructions .Route 04/10/24 .COMPLEX #90 caps levothyroxine 75 mcg tablet See Rx Instructions .Route 04/10/24 .COMPLEX #30 tabs ubrogepant 100 mg tablet (Ubrelvy) 100 mg PO ONCE Migraines #10 tabs 05/02/24 ondansetron HCl 4 mg tablet 4 mg PO Q8H #60 tabs 06/06/24 metformin 500 mg tablet See Rx Instructions .Route 08/10/24 .COMPLEX #90 tabs doxycycline monohydrate 100 mg 100 mg PO BID 7 days #14 tabs 09/11/24 tablet methylprednisolone 4 mg tablets in See Rx Instructions PO PER PKG DIR 09/11/24 a dose pack (Medrol (Bakari)) #21 tabs Allergies Allergy/AdvReac Type Severity Reaction Status Date / Time hydromorphone (From Dilaudid) Allergy Severe Anaphylaxis Verified 09/11/24 13:04 latex (LATEX) Allergy Unknown Unknown Verified 09/11/24 13:04 allergy reaction Penicillins (PENICILLINS) Allergy Unknown Unknown Verified 09/11/24 13:04 allergy reaction Sulfa (Sulfonamide Allergy Unknown Unknown Verified 09/11/24 13:04 Antibiotics) (SULFA allergy (SULFONAMIDE ANTIBIOTICS)) reaction PFSH PFS Disclaimer: The information contained in this section may have been updated after the patient was seen, as this information can be updated by other users. 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 TSH has not been drawn for some time we will check that today. Ingrown right big toenail Ingrown left big toenail Foot pain Wrist pain Rib pain on left side Left radial head fracture Diabetes mellitus Hypertensive heart disease Hyperlipidemia Gigi has not had a lipid panel drawn in some time. We will draw 1 today and he will continue his atorvastatin for now. Abdominal aortic aneurysm Aneurysm of ascending aorta Surgical History Hx of eye surgery gold weight to help close eyelid Hx of brain surgery tumor S/P AAA repair NOVEMBER 2021. Stented coronary artery Family History Other Family history of cancer Family history of diabetes mellitus type II Family history of myocardial infarction Social History Smoking Status: Never smoker how long ago did patient quit smokin years second hand exposure: Yes alcohol intake: former counseling provided: none substance use type: marijuana current occupational status: retired Travel in the last 8 weeks: None household members: other housing: house marital status: legally current occupational exposures/hazards: No caffeine: Yes physical activity: none do you feel safe at home: Yes victim of physical abuse: No victim of emotional abuse: No victim of sexual abuse: No Have you lived/traveled outside [place] in past 30 days?: No Contact w/someone who lives/traveled outside US past 30 days?: No Exposure to someone with infectious disease in past 14 days?: No Do you have a fever (greater than 100.4 F or 38 C)?: No Have you tested positive for COVID-19: No Exposed to someone with COVID-19 in past 14 days?: No Do you have a sore throat?: No Do you have a cough?: No Do you have any weakness?: No Do you have any diarrhea?: No Are you experiencing any unusual bleeding?: No Do you have any muscle aches/pain?: No Do you have any abdominal pain?: No Are you experiencing loss of taste or smell?: No Other Medical History Have you received the Flu Vaccine for this season: No Have you received the Pneumonia Vaccine: No ROS Obtained: Yes All systems reviewed & no additional complaints except as documented Physical Exam General General appearance: alert and in no apparent distress Head Head exam: atraumatic Eye Eye exam: Present PERRL ENT ENT exam: Present mucous membranes moist Neck Neck exam: Present normal inspection; Absent tenderness Chest Chest inspection: Present normal inspection and symmetric chest wall rise Respiratory Respiratory exam: Present normal lung sounds bilaterally; Absent respiratory distress Cardiovascular Cardiovascular exam: Present regular rate and normal rhythm Abdominal Exam Abdominal exam: Present soft and tenderness (Left lower quadrant); Absent distention or guarding Extremities Exam Extremities exam: Absent tenderness, edema or clubbing Back Exam Back exam: Absent tenderness Neurological Exam Neurological exam: Present alert, oriented X3 and normal gait; Absent CN II-XII intact (Chronic right facial droop) or motor sensory deficit (No weakness or sensory deficit of the extremities) Skin Skin exam: Present warm and dry Medical Decision Making Medical Records Screening: Per USPSTF and CDC recommendations, given the prevalence of disease in our region, it is our hospital?s policy to screen for HIV and viral Hepatitis for all patients aged 18 and over and those with ongoing risk factors. Luis Felipe Inquiry Pt receiving controlled substance: No Vital Signs: 09/17/24 11:15 09/17/24 11:30 09/17/24 12:00 Temperature 98.1 F Temperature Source Oral Pulse Rate 66 Pulse Rate [Radial] 64 Respiratory Rate 16 12 14 Blood Pressure 124/83 106/65 L Blood Pressure [Right Arm] 151/91 H Blood Pressure Mean [Right Arm] 111 Blood Pressure Source Blood Pressure Source [Right Arm] Automatic Cuff Blood Pressure Position Blood Pressure Position [Right Arm] Sitting 02 Sat by Pulse Oximetry 100 96 96 Oxygen Delivery Method Room Air Room Air Room Air 09/17/24 13:00 09/17/24 13:30 09/17/24 14:00 Temperature Temperature Source Pulse Rate 66 61 58 L Pulse Rate [Radial] Respiratory Rate 14 12 11 L Blood Pressure 141/83 H 123/72 131/80 Blood Pressure [Right Arm] Blood Pressure Mean [Right Arm] Blood Pressure Source Blood Pressure Source [Right Arm] Blood Pressure Position Blood Pressure Position [Right Arm] 02 Sat by Pulse Oximetry 94 L 92 L 92 L Oxygen Delivery Method Room Air Room Air Room Air 09/17/24 14:30 09/17/24 15:00 09/17/24 15:40 Temperature 97.9 F Temperature Source Oral Pulse Rate 55 L 69 62 Pulse Rate [Radial] Respiratory Rate 10 L 12 18 Blood Pressure 130/81 160/111 H 164/83 H Blood Pressure [Right Arm] Blood Pressure Mean [Right Arm] Blood Pressure Source Automatic Cuff Blood Pressure Source [Right Arm] Blood Pressure Position Sitting Blood Pressure Position [Right Arm] 02 Sat by Pulse Oximetry 93 L 93 L Oxygen Delivery Method Room Air Room Air Room Air Lab Data Lab Results 09/17/24 11:46: WBC 9.3, RBC 4.79, Hgb 14.6, Hct 43.1, MCV 90.0, MCH 30.5, MCHC 33.9, RDW 13.1, Plt Count 226, MPV 10.0, Neut % (Auto) 56.7, Lymph % (Auto) 32.5, [place] % (Auto) 8.7, Eos % (Auto) 1.1, Baso % (Auto) 0.4, Neut # (Auto) 5.3, Lymph # (Auto) 3.0, [place] # (Auto) 0.8, Eos # (Auto) 0.1, Baso # (Auto) 0.0, Sodium 140, Potassium 3.9, Chloride 102, Carbon Dioxide 29, Anion Gap 12.9, BUN 24 H, Creatinine 1.20, Estimated Creat Clear 77, Estimated GFR 60, Est GFR ( Amer) 72, Glucose 121 H, Calcium 9.9, Total Bilirubin 0.9, AST 24, ALT 25, Alkaline Phosphatase 110, Troponin I < 0.01, NT-Pro-B Natriuret Pep 29.2, Total Protein 7.5, Albumin 4.7, Globulin 2.8, Albumin/Globulin Ratio 1.7, Lipase 56 09/17/24 12:05: Lactate 1.0 09/17/24 12:30: Urine Color Yellow, Urine Appearance Sl cloudy, Urine pH 6.0, Ur Specific [place] 1.025, Urine Protein Negative, Urine Glucose (UA) Negative, Urine Ketones Negative, Urine Blood Negative, Urine Nitrate Negative, Urine Bilirubin Negative, Urine Urobilinogen 0.2, Ur Leukocyte Esterase Negative, Urine RBC None, Urine WBC None, Ur Squamous Epith Cells Occasional, Urine Bacteria None 09/17/24 14:05: SARS-CoV-2 (PCR) Not detected, Influenza A Untype (PCR) Not detected, Influenza Type B (PCR) Not detected 09/17/24 14:07: Troponin I < 0.01 09/17/24 11:46 09/17/24 11:46 Orders (Tests/Meds): ED MEDICATIONS Generic Name Dose Route Start Last Admin Trade Name Freq PRN Reason Stop Dose Admin Sodium Chloride 10 ml 09/17/24 12:37 09/17/24 12:38 Sodium Chloride 0.9% 10ml Syr (Rad Only) IV 10/17/24 12:36 10 ml NEEDED PRN Administration Maintain IV Site Discontinued Medications Generic Name Dose Route Start Last Admin Trade Name Freq PRN Reason Stop Dose Admin Iopamidol 70 ml 09/17/24 12:37 09/17/24 12:39 Iopamidol-370 (76%);100ml Bottle IV 09/17/24 12:38 70 ml ONCE ONE Administration Morphine Sulfate 4 mg 09/17/24 11:47 09/17/24 12:07 Morphine 4mg/Ml Syringe IV 09/17/24 11:48 4 mg ONCE ONE Administration Ondansetron HCl 4 mg 09/17/24 11:47 09/17/24 12:07 Ondansetron 4mg/2ml Vial IV 09/17/24 11:48 4 mg ONCE ONE Administration Ondansetron HCl 4 mg 09/17/24 12:31 09/17/24 12:40 Ondansetron 4mg/2ml Vial IV 09/17/24 12:32 4 mg ONCE ONE Administration Sodium Chloride 50 ml 09/17/24 12:37 09/17/24 12:39 0.9 % Sodium Chloride 50 Ml Vial IV 09/17/24 12:38 50 ml ONCE ONE Administration ORDERS Category Date Time Status CT abdomen pelvis w con Stat Cat Scan 09/17/24 11:[address] angio chest PE protocol Stat Cat Scan 09/17/24 11:[address] head/brain wo con Stat Cat Scan 09/17/24 11:47 Completed Complete Blood Count Auto Diff Stat Lab 09/17/24 11:46 Completed Comprehensive Metabolic Panel Stat Lab 09/17/24 11:46 Completed Lactic Acid Stat Lab 09/17/24 12:05 Completed Lipase Stat Lab 09/17/24 11:46 Completed NT Pro Brain Natriuretic Pep. Stat Lab 09/17/24 11:46 Completed Rapid PCR Covid and Flu A/B Stat Lab 09/17/24 14:05 Completed Troponin I Q3H Lab 09/17/24 14:07 Completed Troponin I Q3H Lab 09/17/24 17:45 Ordered Troponin I Stat Lab 09/17/24 11:46 Completed Urinalysis and Microscopic Stat Lab 09/17/24 12:30 Completed Medical Decision Narrative: In summary, this 69-year-old male presents to the emergency department today with headache abdominal pain chest pain. On initial evaluation patient is hemodynamically stable saturating appropriately on room air afebrile no acute distress. Differential diagnosis includes but is not limited to COPD exacerbation ACS PE aortic aneurysm, dissection viral syndrome malignancy bowel obstruction diverticulitis. Based on these concerns, I ordered CBC CMP BNP troponin lipase lactate UA COVID flu swab. ECG personally interpreted demonstrates left axis deviation normal sinus rhythm no ST elevation ST depression or T wave inversion concerning for ischemia. Patient received morphine and Zofran for treatment. Labs personally reviewed demonstrate no leukocytosis UA without bacteria pyuria, negative initial and repeat troponins negative viral swab. CT imaging personally interpreted demonstrate encephalomalacia noted on CT without intracranial hemorrhage. Radiology recommended repeat MRI. I had a interactive conversation with patient that I would recommend urgent follow-up with neurosurgery for repeat imaging As it could be contributing to his headache. Patient has improvement of headache after pain control in the emergency department able to tolerate p.o. agreeable with outpatient follow-up for MRI imaging urgently outpatient dialysis MRI capability not available here in the emergency department today. CT chest indicative of incidental nodule likely not contributing to patient's symptoms today but discussed with patient and recommended outpatient follow-up with PCP. CT abdomen pelvis with constipation and fat-containing inguinal hernias not located where patient's pain is. On repeat evaluation patient has improvement of symptoms able to tolerate p.o. and ambulate. Discussed with patient workup without emergent pathologies requiring admission and recommended urgent follow-up with his primary care provider and neurosurgery. Critical Care Critical Care Time Critical Care Time: No
--- NOTE | 2024-09-17 11:26 | PC.NURSE ---
dr ureña at bedside
--- NOTE | 2024-09-17 11:42 | CT_ITS ---
PROCEDURE INFORMATION: Exam: CTA Chest With Contrast Exam date and time: 09/17/2024 12:20 PM Age: 69 years old Clinical indication: Pain; Chest pressure; Additional info: Cp, n/v HX of aortic aneurysm TECHNIQUE: Imaging protocol: Computed tomographic angiography of the chest with contrast. Exam focused on the arteries. 3D rendering (Not supervised by radiologist): MIP and/or 3D reconstructed images were created by the technologist. Radiation optimization: All CT scans at this facility use at least one of these dose optimization techniques: automated exposure control; mA and/or kV adjustment per patient size (includes targeted exams where dose is matched to clinical indication); or iterative reconstruction. Contrast material: ISOVUE; Contrast volume: 70 ml; Contrast route: INTRAVENOUS (IV); COMPARISON: CT ANGIO NECK 10/29/2020 4:54 PM FINDINGS: Pulmonary arteries: Normal. No pulmonary emboli. Aorta: Prominent aortic root measuring 3.9 x 3.7 cm of the level of the right pulmonary artery. Mild atherosclerotic disease of the aortic arch. Lungs: Basilar scarring/atelectasis. Ground-glass sub 6 mm juxta fissural nodule is best appreciated on coronal series 1001, image 57, inferior segment of the right upper lobe. COPD changes of the lung spaces, [id number]. Right lower lobe granuloma. Pleural spaces: Unremarkable. No pneumothorax. No pleural effusion. Heart: Unremarkable. No cardiomegaly. No pericardial effusion. Coronary arteries: At least moderate coronary calcified atherosclerotic disease. Lymph nodes: Calcified lymph nodes of the inferior segment of the right hilum. Bones/joints: Diffuse degenerative change of the visualized osseous structures. Soft tissues: Unremarkable. IMPRESSION: 1. No acute vascular findings. 2. No acute nonvascular findings. 3. Ground-glass juxta fissural nodule, inferior segment of the right upper lobe. Recommend three-month follow-up for stability assessment.
--- NOTE | 2024-09-17 11:47 | CT_ITS ---
PROCEDURE INFORMATION: Exam: CT Abdomen And Pelvis With Contrast Exam date and time: 09/17/2024 12:20 PM Age: 69 years old Clinical indication: Abdominal pain; Additional info: Llq abdominal pain TECHNIQUE: Imaging protocol: Computed tomography of the abdomen and pelvis with contrast. 3D rendering (Not supervised by radiologist): MIP and/or 3D reconstructed images were created by the technologist. Radiation optimization: All CT scans at this facility use at least one of these dose optimization techniques: automated exposure control; mA and/or kV adjustment per patient size (includes targeted exams where dose is matched to clinical indication); or iterative reconstruction. Contrast material: ISOVUE; Contrast volume: 70 ml; Contrast route: IV; COMPARISON: CT ABDOMEN PELVIS W CON 09/01/2021 5:24 PM FINDINGS: Lungs: Lung bases are clear as visualized. Heart: Base of heart is unremarkable as visualized. Liver: Normal. No mass. Gallbladder and biliary ducts: Gallbladder is mildly distended. Pancreas: Mild pancreatic atrophy. Spleen: [place] striping of the spleen. Adrenal glands: Normal. No mass. Kidneys and ureters: Benign bilateral renal cysts. A few renal hypodensities are too small to characterize by modality, statistically likely to represent benign findings. Stomach and bowel: Moderate colonic stool burden. Appendix: Status post appendectomy. Intraperitoneal space: Unremarkable. No free air. No significant fluid collection. Vasculature: Post endovascular intervention changes of the infrarenal abdominal aorta extending into the common iliac arteries. No evidence to suggest acute vascular abnormality, however study is timed portal venous phase. Multiple pelvic phleboliths. Prominent atherosclerotic disease extending into the visualized branches of the proximal lower extremities. Lymph nodes: Unremarkable. No enlarged lymph nodes. Urinary bladder: Urinary bladder is decompressed. Reproductive: Unremarkable as visualized. Bones/joints: Unremarkable. No acute fracture. Soft tissues: Fat containing indirect left inguinal hernia. Fat containing direct right inguinal hernia. IMPRESSION: 1. Inguinal hernias as detailed above which may be responsible for the patient's pain. Correlate clinically. 2. Otherwise, chronic/post intervention findings as above. COMMENTS: Consistent with the [employer]'s Incidental Findings Committee white paper (J Am Janki Radiol 2018): Any incidental renal lesion less than 1 cm or classified as too small to characterize, or any incidental cystic renal lesion characterized as simple-appearing, is likely benign. No follow-up imaging is recommended for these lesions per consensus recommendations based on imaging criteria.
--- NOTE | 2024-09-17 11:47 | CT_ITS ---
PROCEDURE INFORMATION: Exam: CT Head Without Contrast Exam date and time: 09/17/2024 12:17 PM Age: 69 years old Clinical indication: Pain; Headache; Additional info: SANTOYO, HX tumor TECHNIQUE: Imaging protocol: Computed tomography of the head without contrast. Radiation optimization: All CT scans at this facility use at least one of these dose optimization techniques: automated exposure control; mA and/or kV adjustment per patient size (includes targeted exams where dose is matched to clinical indication); or iterative reconstruction. COMPARISON: CT HEAD/BRAIN WO CON 04/17/2024 2:06 PM FINDINGS: Brain: Interval increase in loss of pérez-white differentiation within the right parieto-occipital lobe adjacent craniotomy site. Intracranial calcified atherosclerotic disease. Cerebral ventricles: Stable mild effacement of the right lateral ventricle. Paranasal sinuses: Visualized sinuses are unremarkable. No fluid levels. Mastoid air cells: Visualized mastoid air cells are well aerated. Orbital cavities: Dense metallic object adjacent the right orbit, similar to prior comparison. Bones: Right posterior occipital craniotomy changes, unchanged from prior examination. Soft tissues: Unremarkable. IMPRESSION: 1. Likely involving postsurgical encephalomalacia of the right inferior parieto-occipital lobe. Consider MRI for further assessment as evolving infarction can appear similarly. 2. Otherwise, examination is stable from 04/17/2024.
[2024-09-17 11:58] LABS: Basophils % 0.4 % (0.1-2.0); Eosinophils # 0.1 K/mm3 (0.0-0.4); Eosinophils % 1.1 % (0.1-12.0); Hematocrit 43.1 % (42.0-52.0); Hemoglobin 14.6 g/dL (14.1-18.0); Lymphocytes % 32.5 % (10-50); Mean Corpuscular HGB Conc 33.9 g/dL (31.8-35.4); Mean Corpuscular Hemoglobin 30.5 pg (27.0-31.2); Monocytes # 0.8 K/mm3 (0.1-1.0); Monocytes % 8.7 % (1.7-9.3); Neutrophils # 5.3 K/mm3 (1.8-7.8); Neutrophils % 56.7 % (37.0-80.0); Platelet Count 226 K/mm3 (142-424); Red Blood Count 4.79 M/mm3 (4.60-6.20); Red Cell Distribution Width 13.1 % (11.5-17.5); White Blood Count 9.3 K/mm3 (4.8-10.8)
[2024-09-17 12:01] LABS: Albumin Level 4.7 g/dl (3.5-5.0); Chloride 102 mmol/L (98-107); Sodium 140 mmol/L (136-145)
[2024-09-17 12:02] LABS: Potassium 3.9 mmoL/L (3.5-5.1)
[2024-09-17 12:04] LABS: Anion Gap 12.9 mEq/L (5-15); Blood Urea Nitrogen 24 mg/dl (9-20); Carbon Dioxide 29 mmol/L (22.0-30.0); Creatinine Clearance Estimated 77 mL/min (50-200); Estimated Glomerular Filt Rate 60 ml/min (>60); GFR (African American) 72 ML/MIN (>60)
[2024-09-17 12:05] LABS: Alanine Aminotransferase 25 U/L (12-78); Albumin/Globulin Ratio 1.7 (1.1-1.8); Alkaline Phosphatase 110 U/L (38-126); Aspartate Amino Transferase 24 U/L (17-59); Bilirubin,Total 0.9 mg/dl (0.2-1.3); Calcium 9.9 mg/dl (8.4-10.2); Globulin 2.8 g/dL (1.3-3.2); Glucose 121 mg/dl (74-100); Lipase 56 U/L (23-300); Total Protein,Serum 7.5 g/dl (6.3-8.2)
[2024-09-17] MEDS: MORPHINE 4MG/ML SYRINGE 4 MG IV (12:07)
[2024-09-17] MEDS: ONDANSETRON 4MG/2ML VIAL 4 MG IV ×2 (12:07→12:40)
--- NOTE | 2024-09-17 12:09 | PC.NURSE ---
radiology came to get patient for scans.
[2024-09-17 12:14] LABS: NT Pro Brain Natriuretic Pep. 29.2 pg/mL (0-125)
[2024-09-17 12:18] LABS: Troponin I < 0.01 ng/ml (0.00-0.034)
[2024-09-17] MEDS: SODIUM CHLORIDE 0.9% 10ML SYR (RAD ONLY) 10 ML IV (12:38)
[2024-09-17] MEDS: IOPAMIDOL-370 (76%);100ML BOTTLE 70 ML IV (12:39)
[2024-09-17] MEDS: 0.9 % SODIUM CHLORIDE 50 ML VIAL IV (12:39)
[2024-09-17 13:05] LABS: Appearance,Urine SL CLOUDY (Clear); Bilirubin,Urine Negative (Negative); Blood, Urine Negative (Negative); Color,Urine YELLOW (Yellow); Glucose,Urine (UA) Negative (Negative); Ketones,Urine Negative (Negative); Leukocyte Esterase,Urine Negative (Negative); Microscopic, Urine URINE MICROSCOPIC (MICROSCOPIC); Nitrate,Urine Negative (Negative); Protein,Urine Negative (Negative); Specific Gravity, Urine 1.025 (1.005-1.030); Urobilinogen,Urine 0.2 EU/dl (0.2)
[2024-09-17 13:14] LABS: Squamous Epithelial Cell,Urine Occasional #/hpf (0-5)
--- NOTE | 2024-09-17 14:08 | PC.NURSE ---
REPEAT TROP SENT AT THIS TIME. LAB NOTIFIED
[2024-09-17 14:09] LABS: Coronavirus 19, PCR Not Detected (NotDetected); Influenza A, PCR Not Detected (NotDetected); Influenza B, PCR Not Detected (NotDetected)
[2024-09-17 14:40] LABS: Troponin I < 0.01 ng/ml (0.00-0.034)
--- NOTE | 2024-09-17 14:41 | PC.NURSE ---
FAMILY UPDATED AT THIS TIME
== END 2024-09-17 15:57 | disposition home or self-care (01) ==
PROVIDERS: Emergency Provider Student in an Organized Health Care Education/Training Program
DX: R06.02 Shortness of breath (principal); R51.9 Headache, unspecified; R07.9 Chest pain, unspecified; R10.32 Left lower quadrant pain; R05.9 Cough, unspecified; R11.0 Nausea; K59.00 Constipation, unspecified; E03.9 Hypothyroidism, unspecified; E11.9 Type 2 diabetes mellitus without complications; I25.10 Atherosclerotic heart disease of native coronary artery without angina pectoris; K21.9 Gastro-esophageal reflux disease without esophagitis; J44.9 Chronic obstructive pulmonary disease, unspecified
CPT/HCPCS: 70450; 71275; 74177; 80053; 81001; 83605; 83690; 83880; 84484; 85025; 87636; 93005; 96374; 96375; 96376; 99285; J2270; J2405; Q9967

== ENCOUNTER 2024-11-14 12:05 | Outpatient (CLI) | payer MEDICARE, OTHER, SELFPAY ==
--- OUTSIDE RECORDS SUMMARY | 2024-11-14 12:08 | XMS_ITS | Data Portability ---
Author Organization [facility] Address [address] [place] [address] Assessment No assessment recorded. Plan of Treatment Reminders Order Date Submit Date Provider Last Modified By Organization Details Last Modified Time Details Appointments None recorded. Lab PSA, serum or plasma [address], [address], 05:44:11 urinalysis , dipstick [address], [address], 13:35:05 Referral None recorded. Procedures bladder scan (PROC) [address], [address], 13:35:05 Surgeries None recorded. Imaging None recorded. Medication Orders alfuzosin ER 10 mg tablet,ext ended release 24 hr 2022 [facility], [address], [address], [place], [address], 12:50:17 Patient TargetsNo targets recorded. Patient InstructionsNo instructions recorded. Reason for Referral None Reported. Results Created Date Observation Date Name Description Value Unit Range Abnormal Flag Note LastModifiedBy Organization Detail LastModifiedTime 04/21/2004/21/2023 PROST ATE SPECI FIC AG (PSA) prostate specific Ag (PSA) 2.40 NG/mL 0.0-4. 0 Not Available [facility] (Lab Registration) [address] , [place], [address], 04/21/2023 16:54:55 04/21/2004/21/2023 PROST ATE SPECI FIC AG (PSA) note Unles s other kenny noted testi ng perfo rmed at: [facility] [address] [place] [address] [phone] Zachery tijerina MD CLIA: [id number] Not Available [facility] (Lab Registration) [address] , [place], [address], 04/21/2023 16:54:55 04/21/2004/21/2023 urina lysis , dipst ick Leukocytes (reference range) negati ve Not Available [address], [address], 04/21/2023 12:02:01 04/21/2004/21/2023 urina lysis , dipst ick Nitrite (reference range:) negati ve Not Available [address], [address], 04/21/2023 12:02:01 04/21/2004/21/2023 urina lysis , dipst ick Urobilinogen (reference range) 0.2 Not Available [address], [address], 04/21/2023 12:02:01 04/21/2004/21/2023 urina lysis , dipst ick Protein (reference range) negati ve Not Available [address], [address], 04/21/2023 12:02:01 04/21/2004/21/2023 urina lysis , dipst ick pH (reference range 5-8.5) 7.0 Not Available [address], [address], 04/21/2023 12:02:01 04/21/2004/21/2023 urina lysis , dipst ick Blood (reference range:) negati ve Not Available [address], [address], 04/21/2023 12:02:01 04/21/2004/21/2023 urina lysis , dipst ick Specific Wood (reference range) 1.020 Not Available [address], [address], 04/21/2023 12:02:01 04/21/2004/21/2023 urina lysis , dipst ick Ketone (reference range) negati ve Not Available [address], [address], 04/21/2023 12:02:01 04/21/2004/21/2023 urina lysis , dipst ick Bilirubin (reference range) negati ve Not Available [address], [address], 04/21/2023 12:02:01 04/21/2004/21/2023 urina lysis , dipst ick Glucose (reference range) negati ve Not Available [address], [address], 04/21/2023 12:02:01 04/21/2004/21/2023 bladd er scan (PROC ) Calculated Residual Urine: 24 ml Not Available [address], [address], 04/21/2023 12:02:23 Result Notes None recorded. Problems Name Problem SNOMED Code Status Onset Date Resolution Date Notes Provider Name and Address Organization Details Recorded Time Myocardial infarction 74686010 Active 2022 Princess nash, PACO ROBERTSON [facility] [place] 3 09:52:17 Hypertensive disorder 78581942 Active 2022 Princess nash, PACO Amaral LPNT [facility] [place] 3 09:52:22 Cerebrovascula r accident 009763458 Active 2022 Princess nash, PACO Amaral LPNT [facility] [place] 3 09:52:27 Diabetes mellitus 31165655 Active 2022 Princess nash, PACO Amaral [place] [facility] [place] 3 09:52:34 Acute hepatitis 80460797 Active 2022 Princess nash, PACO ROBERTSON [facility] [place] 3 09:52:47 Gastroesophage al reflux disease 720790212 Active 2022 Princess nash, PACO Amaral LPNT [facility] [place] 3 09:52:53 Arthritis 7208417 Active 2022 Princess nash, PACO Amaral LPNT [facility] [place] 3 09:52:59 Problem Notes None recorded. Procedures Surgical History Date Name Laterality Status Provider Name and Address Organization Details Recorded Time total resection of visible brain tumor completed Princess ANTONIO AILYN [facility] [place] 04/21/2023 09:59:35 Imaging Results None recorded. Procedure Notes None recorded. Medical Equipment None Reported. Allergies No known drug allergies Medications Name Sig Start Date Stop Date Status Note LastModified by Organization Details LastModified Time losartan 50 mg tablet active Not Available Not Available Not Available atorvastatin 40 mg tablet active Not Available Not Available No t Available methocarbamol 500 mg tablet active Not Available Not Availabl e Not Available metformin 500 mg tablet active Not Available Not Available No t Available ipratropium 0.5 mg-albuterol 3 mg (2.5 mg base)/3 mL nebulization soln active Not Available Not Available Not Available cetirizine 10 mg tablet active Not Available Not Available No t Available azithromycin 250 mg tablet active Not Available Not Availabl e Not Available ofloxacin 0.3 % eye drops active Not Available Not Available No t Available valacyclovir 1 gram tablet active Not Available Not Available Not Available hydrocodone 5 mg-acetaminophe n 325 mg tablet active Not Available Not Availa ble Not Available sucralfate 100 mg/mL oral suspension active Not Available Not Available N ot Available ondansetron HCl 4 mg tablet active Not Available Not Available Not Available prednisone 20 mg tablet active Not Available Not Available No t Available pseudoephedrine -guaifenesin ER 60 mg-600 mg tablet,extend release 12hr active Not Available Not Available Not Available omeprazole 40 mg capsule,delayed release active Not Available Not Available Not Available levothyroxine 75 mcg tablet active Not Available Not Availabl e Not Available ketorolac 0.5 % eye drops active Not Available Not Available No t Available prednisolone acetate 1 % eye drops,suspensio n active Not Available Not Available Not Available lorazepam 0.5 mg tablet active Not Available Not Available No t Available benzonatate 100 mg capsule active Not Available Not Available N ot Available pantoprazole 40 mg tablet,delayed release active Not Available Not Available Not Available erythromycin 5 mg/gram (0.5 %) eye ointment APPLY 1/4 INCH STRIP TO RIGHT EYE EVERY NIGHT FOR SEVERAL DAYS. active Not Available Not Available No t Available neomycin-polymy liz-dexameth 3.5 mg/mL-10,000 unit/mL-0.1% eye drops active Not Available Not Available No t Available hydrochlorothia zide 12.5 mg capsule active Not Available Not Available Not Available nitroglycerin 0.4 mg sublingual tablet active Not Available Not Available Not Available gabapentin 300 mg capsule active Not Available Not Available N ot Available gabapentin 100 mg capsule active Not Available Not Available N ot Available metoprolol succinate ER 25 mg tablet,extended release 24 hr active Not Available Not Availabl e Not Available albuterol sulfate HFA 90 mcg/actuation aerosol inhaler active Not Available Not Availa ble Not Available ondansetron 4 mg disintegrating tablet active Not Available Not Available Not Available fluticasone propionate 50 mcg/actuation nasal spray,suspensio n active Not Available Not Available Not Available diazepam 5 mg tablet active Not Available Not Available Not Available bacitracin-poly myxin B 500 unit-10,000 unit/gram eye ointment active Not Available Not Available Not Available tobramycin 0.3 %-dexamethasone 0.1 % eye drops,suspensio n active Not Available Not Available Not Available neomycin 3.5 mg/g-polymyxin B 10,000 unit/g-dexameth 0.1 % eye oint active Not Available Not Availab le Not Available azithromycin 500 mg tablet active Not Available Not Availabl e Not Available alfuzosin ER 10 mg tablet,extended release 24 hr TAKE 1 TABLET BY MOUTH ONCE DAILY 2024 active Not Available Not Available Not Avai lable ranolazine ER 500 mg tablet,extended release,12 hr active Not Available Not Availabl e Not Available Accu-Chek Guide test strips active Not Available Not Available Not Available Vitals Date Recorded Body height Body mass index (BMI) Body weight Body temperature Provider Name and Address Organization Details Last Updated DateTime 04/21/2023 172.72 cm 30.7 kg/m2 26702.66 g 97.9 [degF] Princess Macario [facility] [place] 04/21/2023 09:51:06 Social History None recorded. Functional Status Question Answer Note LastModified by Organization D etails LastModified Time What is your level of alcohol consumption? None [email or web address] Information not available 04/21/2023 Mental Status None recorded. Family History Relationship Description Onset Age of this Age Resolved Age Notes LastModified by Organization Details LastModified Time Mother Malignant neoplastic disease dec Not available 2022 09:58:44 Father Myocardial infarction dec [email or web address] Not available 04/21 09:59:00 Medical History No medical history recorded. Past Encounters Encounter ID Performer Location Encounter Start Date Encounter Closed Date Diagnosis/Indication Diagnosis SNOMED-CT Code Diagnosis ICD10 Code Diagnosis Note [id number] Zack Duval Jr, MD [facility] [address] [address] 04/21/2023 09:33:27 04/21/2023 11:15:56 Benign prostatic hyperplasia with outflow obstruction 921367278 N40.1 Patient with history of lower urinary tract symptoms secondary to BPH. He continues on alfuzosin with mild lower urinary tract symptoms. He is to continue. We discussed fluid restrictio n at night for his nocturia. Patient with some lower abdominal pain in the mornings that is relieved by passing gas or having a bowel movement. We discussed that this pain is likely due to spasm from his colon and bladder. Bladder scan indicates he is emptying out well. Screening for malignant neoplasm of prostate 178838816 Z12.5 prostate exam today he is benign. We will check a PSA. Health Concerns Section Related Observation LastModified by Organization Detai ls LastModified Time None Recorded Concern Status LastModified by Organization Details LastModified Time None Recorded Advance Directives Directive None Recorded Payers Insurance Date Sequence Insurance Name Policy Number Policy Luciano Covered Member ID Luciano Member ID Guarantor Name 05/07/2024 3 [employer] Gigi An [id number] Gigi An Sr 05/07/2024 1 [employer] (MEDICARE REPLACEMENT/ ADVANTAGE - PPO) Gigi Crowderpool [id number] Gigi Crowderpool Sr 05/07/2024 2 [employer]ET[employer] [facility] (MEDICAID HMO) Gigi Crowderpool [id number] Gigi Crowderpool Sr Notes Date Note Type Note Provider Name and Address Organization Details Recorded Time 04/21/2023 text/html Patient is a 67-year-old white male with a history lower urinary tract symptoms. I saw the patient previously at [facility]. He has been about a year since he was last seen. Continues on alfuzosin. Patient is complaining of some suprapubic discomfort every morning. This is relieved by going to the bathroom has a gas or having a bowel movement. He does have a history of constipation and takes MiraLax. Does have some urgency with running water and nocturia 3-4 times. Bladder scan today shows a residual 24 cc. Zack Duval Jr, MD [address] [place] [address], [address], [place], [address], [facility] [place] [facility] [place] 04/21/2023 12:51:33
[2024-11-16 15:33] LABS: Pancreatic Elastase, Fecal >800 (>200)
== END 2024-11-14 23:59 | disposition home or self-care (01) ==
LOC: LAB 12:06
PROVIDERS: PCP Nurse Practitioner Family; Visit Provider Nurse Practitioner Family
DX: K86.89 Other specified diseases of pancreas (principal)
CPT/HCPCS: 82656

== ENCOUNTER 2024-12-13 13:44 | Outpatient (CLI) | payer MEDICARE, OTHER, SELFPAY ==
--- NOTE | 2024-12-13 13:46 | XR_ITS ---
FINAL REPORT TECHNIQUE: Cervical spine 5 views plus flexion-extension lateral views CLINICAL HISTORY: Persistent headache, history of brain tumor COMPARISON: None FINDINGS: CERVICAL SPINE: AP, lateral, oblique and odontoid views of the cervical spine were obtained. In addition, lateral flexion-extension views were obtained. 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 Advanced degenerative change is present at the C6-7 level, with mild degenerative change at the C4-5 level. No instability is seen with flexion and extension views. There is no prior exam for comparison. There is no acute fracture or malalignment. Vertebral body height is preserved. The precervical soft tissues are normal. 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 Advanced degenerative changes present at C6-7, with mild degenerative change at the C4-5 level. No instability is seen with flexion and extension views. Reviewed, Interpreted and Dictated by Bandar Payton MD Transcribed by Swathi Amaro Authenticated and [facility]
--- OUTSIDE RECORDS SUMMARY | 2024-12-13 13:47 | XMS_ITS | Encounter Summary ---
Author Organization [employer] Address [address] [place] [address] Care Team Providers Care Front Office Supervisor Name Role Phone Unavailable Primary Care Provider Unavailabl e Encounter Details Date Type Department Care Team (Late st Contact Info) Description 10/30/2020 Transcribed Document [facility] [place] [facility] [address] [place] [address] ProviderChristina MD [address] [place] [address] Social History Tobacco Use Types Packs/Day Years Used Date Smoking Tobacco: Never Assessed Sex and Gender Information Value Date Recorded Sex Assigned at Not on file Legal Sex Male 1:42 PM CDT Gender Identity Not on file Sexual Orientation Not on file documented as of this encounter Miscellaneous Notes * [employer]ner Conversion Note - Christina Jarvis MD - 10/30/2020 12:24 PM CDT Discharge Instructions Entered On: 10/30/2020 12:25 EDT Performed On: 10/30/2020 12:24 EDT by YUN HOUSTON MD-NEU DC Instructions HWD Driving After Discharge : Do not drive, Other: No driving or operating heavy machinery until released by a physician. YUN HOUSTON MD-NEU - 10/30/2020 12:24 EDT documented in this encounter Plan of Treatment Not on file documented as of this encounter Visit Diagnoses Not on filedocumented in this encounter
--- OUTSIDE RECORDS SUMMARY | 2024-12-13 13:47 | XMS_ITS | Encounter Summary ---
Author Organization [employer] Address [address] [place] [address] Care Team Providers Care Diet Tech Name Role Phone Unavailable Primary Care Provider Unavailabl e Encounter Details Date Type Department Care Team (Late st Contact Info) Description 10/31/2020 Transcribed Document [facility] [place] [facility] [place] [address] ProviderChristina MD [address] [place] [address] Social History Tobacco Use Types Packs/Day Years Used Date Smoking Tobacco: Never Assessed Sex and Gender Information Value Date Recorded Sex Assigned at Not on file Legal Sex Male 1:42 PM CDT Gender Identity Not on file Sexual Orientation Not on file documented as of this encounter Miscellaneous Notes * Cerner Conversion Note - Christina ProviderMD - 10/31/2020 9:22 AM CDT UM Authorization Entered On: 10/31/2020 9:23 EDT Performed On: 10/31/2020 9:22 EDT by Nasima Salgado Rn-Utilization Review Primary Insurance Authorization Authorization and Policy Numbers : Insurance 1 Health Plan: [employer] PPO Policy Number: [id number] Authorization Number: Insurance 2 Health Plan: [facility] Policy Number: [id number] Authorization Number: Insurance Primary Name : [employer] PPO Policy Number: [id number] Authorization Status-Primary : Opo status approv Authorized Service Begin Date-Primary : 10/29/2020 EDT Observation Authorization Nbr-Primary : [id number] Historical Authorization Comments-Primary : Comment 1: Submitted for and obtained OBS approval from [facility] OBS auth# [id number] (CATE KOHLER, Private Wealth Advisor 10/30/2020 13:47) Nasima Salgado Rn-Utilization Review - 10/31/2020 9:22 EDT Electronically signed by Donald, [facility] Conversion [employer] at 10/14/2022 11:25 AM CDT documented in this encounter Plan of Treatment Not on file documented as of this encounter Visit Diagnoses Not on filedocumented in this encounter
--- OUTSIDE RECORDS SUMMARY | 2024-12-13 13:47 | XMS_ITS | Encounter Summary ---
Author Organization [employer] [facility] Address [address] [place] [address] Care Team Providers Care Ophthalmic Lens Inspector Name Role Phone Unavailable Primary Care Provider Unavailabl e Encounter Details Date Type Department Care Team (Late st Contact Info) Description 10/31/2020 Transcribed Document [facility] [place] Family Medicine [address] [place] [address] ProviderChristina MD [address] [place] [address] Social History Tobacco Use Types Packs/Day Years Used Date Smoking Tobacco: Never Assessed Sex and Gender Information Value Date Recorded Sex Assigned at Not on file Legal Sex Male 1:42 PM CDT Gender Identity Not on file Sexual Orientation Not on file documented as of this encounter Miscellaneous Notes * Cerner Conversion Note - Christina Jarvis MD - 10/31/2020 11:35 AM CDT Patient Education Materials Follows: General Headache Without Cause A headache is pain or discomfort felt around the head or neck area. The specific cause of a headache may not be found. There are many causes and types of headaches. A few common ones are: ??? Tension headaches. ??? Migraine headaches. ??? Cluster headaches. ??? Chronic daily headaches. Follow these instructions at home: Watch your condition for any changes. Let your health care provider know about them. Take these steps to help with your condition: Managing pain ??? Take ovcb-vel-vzxcvvd and prescription medicines only as told by your health care provider. ??? Lie down in a dark, quiet room when you have a headache. ??? If directed, put ice on your head and neck area: ? Put ice in a plastic bag. ? Place a towel between your skin and the bag. ? Leave the ice on for 20 minutes, 2?3 times per day. ??? If directed, apply heat to the affected area. Use the heat source that your health care provider recommends, such as a moist heat pack or a heating pad. ? Place a towel between your skin and the heat source. ? Leave the heat on for 20?30 minutes. ? Remove the heat if your skin turns bright red. This is especially important if you are unable to feel pain, heat, or cold. You may have a greater risk of getting burned. ??? Keep lights dim if bright lights bother you or make your headaches worse. Eating and drinking ??? Eat meals on a regular schedule. ??? If you drink alcohol: ? Limit how much you use to: ? 0?1 drink a day for women. ? 0?2 drinks a day for men. ? Be aware of how much alcohol is in your drink. In the [place] one drink equals one 12 oz bottle of beer (355 mL), one 5 oz glass of wine (148 mL), or one 1? oz glass of hard liquor (44 mL). ??? Stop drinking caffeine, or decrease the amount of caffeine you drink. General instructions ??? Keep a headache journal to help find out what may trigger your headaches. For example, write down: ? What you eat and drink. ? How much sleep you get. ? Any change to your diet or medicines. ??? Try massage or other relaxation techniques. ??? Limit stress. ??? Sit up straight, and do not tense your muscles. ??? Do not use any products that contain nicotine or tobacco, such as cigarettes, e-cigarettes, and chewing tobacco. If you need help quitting, ask your health care provider. ??? Exercise regularly as told by your health care provider. ??? Sleep on a regular schedule. Get 7?9 hours of sleep each night, or the amount recommended by your health care provider. ??? Keep all follow-up visits as told by your health care provider. This is important. Contact a health care provider if: ??? Your symptoms are not helped by medicine. ??? You have a headache that is different from the usual headache. ??? You have nausea or you vomit. ??? You have a fever. Get help right away if: ??? Your headache becomes severe quickly. ??? Your headache gets worse after moderate to intense physical activity. ??? You have repeated vomiting. ??? You have a stiff neck. ??? You have a loss of vision. ??? You have problems with speech. ??? You have pain in the eye or ear. ??? You have muscular weakness or loss of muscle control. ??? You lose your balance or have trouble walking. ??? You feel faint or pass out. ??? You have confusion. ??? You have a seizure. Summary ??? A headache is pain or discomfort felt around the head or neck area. ??? There are many causes and types of headaches. In some cases, the cause may not be found. ??? Keep a headache journal to help find out what may trigger your headaches. Watch your condition for any changes. Let your health care provider know about them. ??? Contact a health care provider if you have a headache that is different from the usual headache, or if your symptoms are not helped by medicine. ??? Get help right away if your headache becomes severe, you vomit, you have a loss of vision, you lose your balance, or you have a seizure. This information is not intended to replace advice given to you by your health care provider. Make sure you discuss any questions you have with your health care provider. Document Revised: 01/02/2019 Document Reviewed: 01/02/2019 [employer] Patient Education ? 2020 [employer] documented in this encounter Plan of Treatment Not on file documented as of this encounter Visit Diagnoses Not on filedocumented in this encounter
--- OUTSIDE RECORDS SUMMARY | 2024-12-13 13:47 | XMS_ITS | Encounter Summary ---
Author Organization [email or web address] Address [address] [place] [id number] Care Team Providers Care Infrastructure Consultant Name Role Phone Unavailable Primary Care Provider Unavailabl e Encounter Details Date Type Department Care Team (Late st Contact Info) Description 10/30/2020 Transcribed Document [facility] [place] Family Medicine [address] [place] [address] ProviderChristina MD [address] [place] [address] Social History Tobacco Use Types Packs/Day Years Used Date Smoking Tobacco: Never Assessed Sex and Gender Information Value Date Recorded Sex Assigned at Not on file Legal Sex Male 1:42 PM CDT Gender Identity Not on file Sexual Orientation Not on file documented as of this encounter Miscellaneous Notes * Cerner Conversion Note - Christina ProviderMD - 10/30/2020 2:03 AM CDT Evaluation, Occupational Therapy Entered On: 10/30/2020 15:25 EDT Performed On: 10/30/2020 15:14 EDT by KATHY STODDARD OTR/Gm General Information, OT Visit Type, OT : Initial evaluation Patient Orders : Order Date Order Ordering 10/30/2020 02:03 OT Evaluation and Treatment Ordered By: AURORA ODEN DO Active Diagnoses : No Qualifying Diagnoses Therapy Diagnosis, OT : Decreased independence with ADLs due to dizziness Onset of Problem, OT : 10/29/2020 EDT Admission Date : 10/29/2020 22:15 Co-treated by, OT : Physical Therapist Personal Devices : Personal Devices No Devices Recorded Assistive Devices : Assistive Devices No Devices Recorded General Information Comment, OT : Dx: Headache, syncopal Hx: COPD, 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 KATHY STODDARD OTR/Gm - 10/30/2020 15:14 EDT General Status Patient Received Status : Supine in bed Treatment Start Time : 10/30/2020 14:45 EDT Patient Left Status : Supine in bed, All needs met and within reach RN/PCT Informed Comment : GARY Kohler Treatment End Time : 10/30/2020 15:00 EDT Treatment Time : 15 Minute(s) KATHY STODDARD OTR/Gm - 10/30/2020 15:14 EDT History and Environment, OT Living Situation, Therapy : Home Patient Lives With : Alone Home Equipment, Therapy : Other: walking stick Stairs : Yes Stair Location(s) : Outside Outside Stairs, Number of Steps : 2 KATHY STODDARD OTR/Gm - 10/30/2020 15:14 EDT Prior LOF Bathing, OT : Independent Prior LOF Bed Mobility : Independent Prior LOF Upper Body Dressing, OT : Independent Prior LOF Lower Body Dressing, OT : Independent Prior LOF Toileting : Independent Prior LOF Transfer : Independent Prior LOF Grooming, OT : Independent Prior LOF for IADLs, OT : Independent KATHY STODDARD OTR/Gm - 10/30/2020 15:14 EDT Upper Extremity Right UE Active ROM : WFL Left UE Active ROM : WFL KATHY STODDARD OTR/Gm - 10/30/2020 15:14 EDT Self Care/Home Management, OT Self Feeding Assist Level, OT : Supervision or set-up Grooming Assist Level, OT : Supervision or set-up Bathing Assist Level, OT : Assist, minimal Upper Body Dressing Assist Level, OT : Supervision or set-up Lower Body Dressing Assist Level, OT : Supervision or set-up Toileting Assist Level : Assist, minimal Toilet Transfer Assist Level : Assist, minimal KATHY STODDARD OTR/Gm - 10/30/2020 15:14 EDT Functional Mobility Mobility Grid Supine to Sit : Rehab Modified independence Sit to Stand : Supervision/set-up Bed to Chair : Rehab Minimal assistance Stand to Sit : Rehab Moderate assistance KATHY STODDARD OTR/Gm - 10/30/2020 15:14 EDT Cognition Assessment, OT Orientation : Oriented x 4 KATHY STODDARD OTR/Gm - 10/30/2020 15:14 EDT Indication Assessment, OT Occupational Therapy Indicated : Yes Problem List, OT : Impaired, activities daily living, Impaired functional mobility, Impaired, standing balance Potential Barriers, OT : None evident Rehabilitation Potential, OT : Good KATHY STODDARD OTR/Gm - 10/30/2020 15:14 EDT Plan of Care, OT OT Tx Plan/Goals Established w Patient : Yes OT Frequency Rehab : Five days per week OT Duration Rehab : Fourteen days OT Treatments Planned : Activities of daily living, Functional mobility training, Safety education, Therapeutic activities KATHY STODDARD OTR/Gm - 10/30/2020 15:14 EDT Bucket Operator Goals, OT Grooming LTG Grid Goal #1 Activity : Grooming Assist : Independent, modified Date to Meet : 11/13/2020 EDT Goal Status : Initial goal Comment : Staning at sink without LOB KATHY STODDARD OTR/Gm - 10/30/2020 15:14 EDT Dressing, Lower Body LTG Grid Goal #1 Activity : Dressing, Lower Body Assist : Independent, modified Date to Meet : 11/13/2020 EDT Goal Status : Initial goal KATHY STODDARD OTR/Gm - 10/30/2020 15:14 EDT Toileting LTG Grid Goal #1 Activity : Toileting Assist : Independent, modified Date to Meet : 11/13/2020 EDT Goal Status : Initial goal KATHY STODDARD OTR/Gm - 10/30/2020 15:14 EDT Toilet Transfer LTG Grid Goal #1 Activity : Toilet Transfer, Ambulatory Assist : Independent, modified Date to Meet : 11/13/2020 EDT Goal Status : Initial goal Comment : Without LOB KATHY STODDARD OTR/Gm - 10/30/2020 15:14 EDT Treatment Note Subjective Comment : Pt was agreeable Pt's goal is to have pain controlled and to go home Patient's Response to Treatment : Pt tolerated eval well Additional Objective Information : Pt was found lying supine in bed. Pt was mod I for supine to sit. Pt was supervision for sit to stand. Pt was min A for ambulation 24 ft before becoming dizzy and almost having syncopal episode. Pt was mod A for stand to sit. Pt was min A to transfer to bed. Pt was left lying supine in bed with all needs met, call light within reach. Assessment : Pt would benefit from OT services during hospitalization Plan for Treatment : see goals KATHY STODDARD OTR/L - 10/30/2020 15:14 EDT Anticipated Discharge Needs, OT/PT Anticipated Discharge to : Home, with family care KATHY STODDARD OTR/L - 10/30/2020 15:[address] [facility] OT Charges OT Eval Moderate Complexity : 1 KATHY STODDARD OTR/L - 10/30/2020 15:14 EDT Electronically signed by [facility] Conversion Co Supervisor Grounds And Landscape Cerner at 10/14/2022 11:22 AM CDT documented in this encounter Plan of Treatment Not on file documented as of this encounter Visit Diagnoses Not on filedocumented in this encounter
--- OUTSIDE RECORDS SUMMARY | 2024-12-13 13:47 | XMS_ITS | Encounter Summary ---
Author Organization [employer] Address [address] [place] [address] Care Team Providers Care Semiconductor Packages Tester Name Role Phone Unavailable Primary Care Provider Unavailabl e Encounter Details Date Type Department Care Team (Late st Contact Info) Description 10/29/2020 Transcribed Document [facility] [place] Family Medicine [facility] [place] [address] ProviderChristina MD [address] [place], [place] [id number] Social History Tobacco Use Types Packs/Day Years Used Date Smoking Tobacco: Never Assessed Sex and Gender Information Value Date Recorded Sex Assigned at Not on file Legal Sex Male 1:42 PM CDT Gender Identity Not on file Sexual Orientation Not on file documented as of this encounter Miscellaneous Notes * Cerner Conversion Note - Christina ProviderMD - 10/29/2020 10:38 PM CDT Patient: GIGI SAMANIEGO SR Age: 65 years Sex: Male : 1955 Associated Diagnoses: None Author: AURORA ODEN DO Basic Information Source of history: Self, Medical record. History limitation: None. Chief Complaint headache Subjective MR. Samaniego is a 65 year old male with history of brain tumor s/p resection at in 1994 that was reportedly benign as well as HTN and recent c diff colitis in july who presented to [facility] on 10/29 for evaluation of headache and syncope. He tells me taht since august 11 he has had issues with nausea and diarrhea, he completed antibiotics for the c diff but still was not eating well. He tells me that wednesday, 10/27, he was ordering food through the drive through and turned his head left to get the food and passed out, he did this another time and again passed out. He today went to stand and had near syncopal episode also. He tells me that he always has headaches but over the last few days it has been worse with headaches starting posteriorly and radiating to the front. He has his first formed bm in 2 months today. He reports increased stress over the last year with divorce and has lost 30 pounds. He tells me that he used to follow up with for the brain tumor but has not been seen in about 3 years. In Ed he had CT head that showed no acute change as well as CTA head and neck done that showed no large vessel occlusion. He was given iv fluids and toradol and transferred to [facility] for further evaluation. Health Status Allergies: Allergic Reactions (Selected) Severity Not Documented Dilaudid- Anaphylaxis. Penicillin- No reactions were documented. Sulfa drugs- No reactions were documented. Toradol- No reactions were documented. Current medications: (Selected) , Home Medications (15) Active albuterol atorvastatin , Oral, Daily hydroCHLOROthiazide 12.5 mg oral capsule , Oral, Daily levothyroxine 75 mcg (0.075 mg) oral tablet 75 mcg = 1 Tab, Oral, Daily LORazepam 0.5 mg oral tablet 0.5 mg = 1 Tab, Oral, 1-Time losartan 100 mg oral tablet , Oral, Daily magnesium citrate , Oral, Daily metFORMIN , Oral methocarbamol 500 mg oral tablet , Oral, QID metoprolol succinate 25 mg oral capsule, extended release , Oral, Daily omeprazole 40 mg, Oral, Daily ondansetron 4 mg oral tablet 4 mg = 1 Tab, PRN, Oral, Q8H Phl-Sennosides polyethylene glycol 3350 , Oral, Daily ranolazine , Oral, BID, No qualifying data available Problem list: Medical At risk for sleep apnea / IMO [id number] / Confirmed, Active Problems (1) At risk for sleep apnea Histories Past Medical History: brain tumor headache htn Family History: erica with lung cancer father lived until almost 80 brother on dialysis. Procedure history: brain tumor removed at in 1994. Social History Social & Psychosocial Habits No Data Available . Review of Systems Constitutional: Weight loss, No fever, No chills, No weight gain. Eye: No blurring, No double vision, No visual disturbances. Ear/Nose/Mouth/Throat: No dysphagia, No nasal congestion, No sore throat. Respiratory: No shortness of breath, No cough, No hemoptysis, No wheezing. Cardiovascular: No chest pain, No palpitations, No peripheral edema. Gastrointestinal: Nausea, Diarrhea, No vomiting, No constipation, No abdominal pain, No melena, No rectal bleeding. Genitourinary: No dysuria, No hematuria. Hematology/Lymphatics: No bruising tendency, No bleeding tendency. Musculoskeletal: No joint pain, No muscle pain. Integumentary: No rash, No skin lesion. Neurologic: Headache, syncope, No confusion. Psychiatric: No anxiety, No depression. Objective VS/Measurements No qualifying data available General: Alert and oriented, No acute distress. Eye: Pupils are equal, round and reactive to light, Extraocular movements are intact. HENT: Normocephalic. Neck: Supple, No carotid bruit, No jugular venous distention. Respiratory: Lungs are clear to auscultation, Respirations are non-labored, Breath sounds are equal. Cardiovascular: Normal rate, Regular rhythm, No murmur, No edema. Gastrointestinal: Soft, Non-tender, Non-distended, Normal bowel sounds, No organomegaly. Genitourinary: No costovertebral angle tenderness. Musculoskeletal: Normal range of motion, Normal strength, No tenderness. Integumentary: Warm, Dry. Neurologic: Alert, Oriented, right eye drooping and right facial droop. eomi, tongue protrudes midline. hand air traffic controller and arm pull 5/5. hard of hearing. Psychiatric: Cooperative, Appropriate mood & affect, Normal judgment. No qualifying data available Results Review CTA head and neck: no acute abnormality, no large vessel occlusion. ct head: prior right occipital craniectomy with scalp graft. right eyelid prostehsis. no acute change. wbc 5.1, hgb 13.8, plt 217 sodium 137 cr 1.00 Impression and Plan headache, acute on chronic - trial fiorcet - ct head not acute process, check mri brain - neuro consult syncope - two occured when he looked left out the drive through window - cta head and neck showed no occlusions - check orthostatic vital signs and give ivfluids - check echocardiogram - monitor on telemetry diabetes mellitus - ssi essential htn - continue home medications history of brain tumor - s/p resection at in 1994 - mri brain - per pt it was benign recent c diff colitis - with continued intermittent nausea and diarrhea - per pt bowels finally starting to iimprove - monitor medical record reviewed, no family present Code status: plastic fixture builder spent: 45 min [facility] Physical Examination VS/Measurements No qualifying data available Review / Management Results review: No qualifying data available. documented in this encounter Plan of Treatment Not on file documented as of this encounter Visit Diagnoses Not on filedocumented in this encounter
--- OUTSIDE RECORDS SUMMARY | 2024-12-13 13:47 | XMS_ITS | Encounter Summary ---
Author Organization [employer] Address [address] [place] [address] Care Team Providers Care Detailer Pharmaceuticals Name Role Phone Unavailable Primary Care Provider Unavailabl e Encounter Details Date Type Department Care Team (Late st Contact Info) Description 10/30/2020 Transcribed Document [facility] [place] [facility] [address] ProviderChristina MD [address] [place] [address] Social History Tobacco Use Types Packs/Day Years Used Date Smoking Tobacco: Never Assessed Sex and Gender Information Value Date Recorded Sex Assigned at Not on file Legal Sex Male 1:42 PM CDT Gender Identity Not on file Sexual Orientation Not on file documented as of this encounter Miscellaneous Notes * Cerner Conversion Note - Christina Jarvis MD - 10/30/2020 1:06 PM CDT DATE OF CONSULTATION: 10/30/2020 NEUROLOGY CONSULT HISTORY OF PRESENT ILLNESS: Gigi Nolan is a 65-year-old white male with a history of diabetes and hypertension, who apparently had 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 He has been left with left facial weakness and difficulty hearing and seeing on the right side since then. The patient was transferred to our hospital yesterday from the emergency room at [facility] for headaches and syncope, and I have been asked to evaluate him for headaches. The patient tells me that back in the , he developed progressive right facial weakness and an episode of syncope that led to the discovery of a tumor around the right brainstem. Based on imaging studies, I suspect this may have been a cerebellopontine angle tumor. Apparently, this was resected at and he was left with right facial weakness as well as difficulty seeing out of his right eye and difficulty hearing out of his right ear. Every few years, he follows up with physicians at regarding this tumor and apparently it has never recurred. He does not know the name of the tumor, but he was told it was benign and did not require any chemotherapy or radiation. He tells me ever since the surgery he has been having headaches. He says the headaches are usually on the back of the neck and then radiated up to the top of his head, sometimes over his forehead. They are with him every day. He used to [facility] a [facility] until January of last year. He was primarily going to the [facility] for back pain. He was getting hydrocodone 3 to 4 times a day, but back in January, he decided to stop the hydrocodone because he was worried about long-term sequela being on hydrocodone. He says since being off hydrocodone, he has had generalized pain and aches and does not feel well. Some days he does not feel like getting out of bed. Apparently, in July, he fell a couple times and has had some right leg weakness since then and has had to use a cane. He also in July developed diarrhea and apparently this was found to be C difficile diarrhea and he has been on antibiotics until recently. He says over the last several days he has had more headaches. 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 This happened two days ago as well when he was stepping out of his truck and heard his head to the left. He decided to come to [facility] Emergency Room, where he was given a CTA of the head and neck, and I will discuss this result later. He was then sent here for further evaluation. CURRENT MEDICATIONS: Here in the hospital include: 1. Pepcid. 2. Subcu heparin. 3. Levothyroxine. 4. Toprol. 5. Carafate. 6. Tylenol. 7. Butalbital p.r.n. 8. Oxycodone p.r.n. ALLERGIES: Dilaudid, penicillin, and sulfa. MEDICATIONS: At home according to a computerized home medication list may have included: 1. Ranolazine. 2. Metformin. 3. Atorvastatin. 4. Metoprolol. 5. Omeprazole. 6. Ativan. 7. Ondansetron. 8. Levothyroxine. 9. Hydrochlorothiazide. 10. Methocarbamol. 11. Albuterol. 12. Magnesium. 13. Losartan. (He also says he has to use artificial tear drops to his right eye multiple times a day). PAST MEDICAL HISTORY: 1. Up until 15 years ago, he was smoking 3 to 4 packs a day of cigarettes. 2. He denies any alcohol use. 3. He tells me he occasionally smokes marijuana. 4. He has COPD. 5. 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 6. In 1993, he had to have surgery on his arm after an injury. 7. He has diabetes. 8. Hypertension. 9. Recent C difficile colitis. 10. Depression with anxiety for which he is on Ativan. 11. Up until January, he was going to a [facility] for chronic pain and was receiving hydrocodone. SOCIAL HISTORY: The patient lives in [place] by himself, he . 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 He uses a cane to ambulate. FAMILY HISTORY: His mother of lung cancer. His father of unknown causes. His brother is in hospice here in our hospital with kidney disease. REVIEW OF SYSTEMS: GENERAL: He does admit some night sweats. EYES: He has poor vision in his right eye. EAR: He has poor hearing in his right ear. CARDIAC: He sometimes has chest pain. RESPIRATORY: He often feels short of breath. GI: He has been having diarrhea. : He has prostatitis. SKIN: He sometimes has rashes. MUSCULAR: He has chronic muscle pains. NEUROLOGIC: He has chronic headaches. PSYCHIATRIC: He denies any suicidality. ENDOCRINE: He does have diabetes. HEMATOLOGIC: He does not think he has ever had a blood transfusion. PHYSICAL EXAMINATION: GENERAL: He is well developed male, in no acute distress, resting comfortably in bed. VITAL SIGNS: His blood pressure is 141/80, pulse is 64, respirations are 16. HEART: Regular rate and rhythm. LUNGS: Clear. NECK: Supple without any bruits. NEUROLOGIC: An ophthalmologic exam was done. His pupils react equally to light, but I could not see his disc. Motor exam shows 5/5 strength in both arms and legs. His tone in both arms and legs is normal. He is alert and oriented x3. He has good recent and remote recall. His attention span and concentration are normal. Language skills are normal and fund of knowledge is adequate. Cranial nerves II through XII shows that he has right peripheral 7th weakness. He has ptosis of his right eye. He has difficulty hearing out of his right ear. His tongue, however, protrudes midline. Coordination shows intact [id number]-hp-nmzj and qrjs-io-gepl bilaterally. Gait was not tested. DIAGNOSTIC STUDIES: IMAGING STUDIES: He had a CTA of the head and neck at [facility] yesterday. The CTA of the head showed no large vessel occlusion. 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 The patient had a CTA of the neck that was normal. The patient had a CT scan of his head at [facility] that suggested calcification of the right anterior annie that was there in 2012. The patient has had an MRI of the brain without contrast here at our hospital that shows abnormal restricted diffusion in the region of the right cerebellar pontine angle and along the right brainstem, probably related to residual or recurrent epidermoid with associated postoperative change. The patient has had an echocardiogram, results of which is pending. LABORATORY RESULTS: His laboratory show a normal electrolytes, a CBC with diff is normal. An INR is normal at 1.0. ASSESSMENT: Gigi Nolan is a 65-year-old male with a history of a benign brain tumor removed in the with diabetes and hypertension with chronic headaches. He has also had some episodes of syncope when turning his head to the left. An MRI shows some abnormal restricted diffusion around the old tumor bed. He also has had a CTA of the neck, which suggested a hypoplastic distal right vertebral artery. The differential for his headaches could include one or a combination of followin. Chronic daily headache secondary to his neurosurgery and/or brain tumor in the past-I suspect this is most likely cause. to a migraine. 2. Vascular malformation, not seen on his CTA. 3. Cerebral mass lesion not seen on the MRI. 4. A migraine. The differential for syncope could include one or a combination of followin. Side effects of medications. 2. Complicated migraine. 3. Vertebrobasilar insufficiency. 4. Cardiac arrhythmia. 5. Orthostasis. At this time, I would recommend the followin. To follow up on his echocardiogram. 2. To follow up on orthostatics that have been ordered. 3. No driving until released by physician. 4. Screening EEG to help exclude seizures. 5. Artificial Tears. 6. I would like to review the CTA of the head and neck done at [facility]. I have asked the staff to load this disk into our system, so I can review them. 7. At discharge, he should talk to his outpatient physicians at about this hospitalization. Of note, I have spent over 80 minutes on this case today. Over half that time was spent reviewing the chart and counseling the patient. I will follow with you. ADDENDUM : I went to round on the patient again on October 31, 2020 but he had already been discharged to home. His EEG was normal . I did review the CTA of the head and neck - the right vertebral artery appeared diffusely small throughout its course. /[id number] MD MAR Kulkarni/AQ / WSAliza / MODL /[id number] Electronically signed by Donald [facility] Conversion Chairman And Ceo Cerner at 10/14/2022 11:32 AM CDT documented in this encounter Plan of Treatment Not on file documented as of this encounter Visit Diagnoses Not on filedocumented in this encounter
--- OUTSIDE RECORDS SUMMARY | 2024-12-13 13:47 | XMS_ITS | Encounter Summary ---
Author Organization [employer] Address [address] [place] [address] Care Team Providers Care Inker Name Role Phone Unavailable Primary Care Provider Unavailabl e Encounter Details Date Type Department Care Team (Late st Contact Info) Description 10/30/2020 Transcribed Document [facility] [address] [place] [address] ProviderChristina MD [address] [place] [address] Social History Tobacco Use Types Packs/Day Years Used Date Smoking Tobacco: Never Assessed Sex and Gender Information Value Date Recorded Sex Assigned at Not on file Legal Sex Male 1:42 PM CDT Gender Identity Not on file Sexual Orientation Not on file documented as of this encounter Miscellaneous Notes * Cerner Conversion Note - Christina ProviderMD - 10/30/2020 1:38 PM CDT UM Authorization Entered On: 10/30/2020 13:38 EDT Performed On: 10/30/2020 13:38 EDT by Nasima Salgado Rn-Utilization Review Primary Insurance Authorization Authorization and Policy Numbers : Insurance 1 Health Plan: [employer] Policy Number: [id number] Authorization Number: Insurance 2 Health Plan: [facility] Policy Number: [id number] Authorization Number: Insurance Primary Name : [employer] Policy Number: [id number] Authorized Service Begin Date-Primary : 10/29/2020 EDT Historical Authorization Comments-Primary : No Authorization Comments Found Nasima Salgado Rn-Utilization Review - 10/30/2020 13:38 EDT documented in this encounter Plan of Treatment Not on file documented as of this encounter Visit Diagnoses Not on filedocumented in this encounter
--- OUTSIDE RECORDS SUMMARY | 2024-12-13 13:47 | XMS_ITS | Encounter Summary ---
Author Organization Healthcare Address [address] [place] [address] Care Team Providers Care Tool And Gauge Inspector Name Role Phone Teo Dominguez MD Primary Care Provider + [phone] See Gann MD Unavailable [phone] Rufina Shrestha DDS Unavailable + Varinder Dey DMD Unavailable [phone] Encounter Details Date Type Department Care Team (Late st Contact Info) Description 04/17/2024 Orders Only External Location [address] [place] [address] Provider, External Social History Tobacco Use Types Packs/Day Years Used Date Smoking Tobacco: Former Cigarettes 3 22 1 985 - 2006 Smokeless Tobacco: Never Alcohol Use Standard Drinks/Week Comments Not Currently 0 (1 standard drink = 0.6 oz pur e alcohol) PHQ-2 Answer Date Recorded Patient Health Questionnaire-2 Score 6 12/01/2021 Sex and Gender Information Value Date Recorded Sex Assigned at Male 12/19/2021 7:10 AM EDT Legal Sex Male 7:57 PM EDT Gender Identity Male 12/19/2021 7:10 AM EDT Sexual Orientation Not on file documented as of this encounter Plan of Treatment Not on file documented as of this encounter Procedures Procedure Name Priority Date/Time Associated Diagnosis Comments CT NEURO OUTSIDE IMAGES 04/17/2024 2:06 PM EDT documented in this encounter Results * CT NEURO OUTSIDE IMAGES (04/17/2024 2:06 PM EDT) Anatomical Region Laterality Modality Computed Tomogra phy 04/17/2024 2:06 PM EDT us External Provider IMG CT PROCEDURES Final Result documented in this encounter Visit Diagnoses Not on filedocumented in this encounter Additional Health Concerns Assessment Noted Time PHQ-9 Depression Total Score: 13 022 12:43 PM EDT A fall risk assessment has been complete d for the patient 02/23/2022 4:04 PM EDT A Body Mass Index follow-up plan has been documented for the patient 03/02/2024 9:10 AM EDT documented as of this encounter Care Teams Tool And Gauge Inspector Relationship Specialty Start Date End Date Teo Dominguez MD [address] [place] [address] PCP - General 11/08/20 See Gann MD [address] [place] [address] Surgeon Neurosurgery 01/07/21 Rufina Shrestha DDS [address] [place] [address] Dentist Dentist 08/19/22 Varinder Dey DMD [address] [place] [address] Dentist 08/19/22 documented as of this encounter
--- OUTSIDE RECORDS SUMMARY | 2024-12-13 13:47 | XMS_ITS | Encounter Summary ---
Author Organization Healthcare Address [address] [place] [address] Care Team Providers Care Sales Solutions Associate Name Role Phone Teo Dominguez MD Primary Care Provider + [phone] See Gann MD Unavailable [phone] Rufina Shrestha DDS Unavailable + Varinder Dey DMD Unavailable [phone] Encounter Details Date Type Department Care Team (Late st Contact Info) Description 09/17/2024 Orders Only External Location [address] [place] [address] Provider, External Social History Tobacco Use Types [...] Name Priority Date/Time Associated Diagnosis Comments CT THORACIC OUTSIDE IMAGES 09/17/2024 12:20 PM EDT documented in this encounter Results * CT THORACIC OUTSIDE IMAGES (09/17/2024 12:20 PM EDT) Anatomical Region Laterality Modality Computed Tomogra phy 09/17/2024 12:2 0 PM EDT us External Provider IMG CT [...] documented as of this encounter Care Teams Sales Solutions Associate Relationship Specialty Start Date End Date Teo Dominguez MD [address] [place] [id number] PCP - General 11/08/20 See Gann MD [address] [place] [address] Surgeon Neurosurgery 01/07/21 Rufina Shrestha DDS [address] [place] [address] Dentist Dentist 08/19/22 Varinder Dey DMD [address] [place] [address] Dentist 08/19/22 documented as of this encounter
--- OUTSIDE RECORDS SUMMARY | 2024-12-13 13:47 | XMS_ITS | Encounter Summary ---
Author Organization [employer] Address [address] [place] [address] Care Team Providers Care Photocopying Equipment Mechanic Name Role Phone Unavailable Primary Care Provider Unavailabl e Encounter Details Date Type Department Care Team (Late st Contact Info) Description 10/31/2020 Transcribed Document [facility] [place] [facility] [place] [address] ProviderChristina MD [address] [place] [address] Social History Tobacco Use Types Packs/Day Years Used Date Smoking Tobacco: Never Assessed Sex and Gender Information Value Date Recorded Sex Assigned at Not on file Legal Sex Male 1:42 PM CDT Gender Identity Not on file Sexual Orientation Not on file documented as of this encounter Miscellaneous Notes * Cerner Conversion Note - Christina ProviderMD - 10/31/2020 4:28 PM CDT Discharge Summary, PT Entered On: 10/31/2020 16:29 EDT Performed On: 10/31/2020 16:28 EDT by Ang Wall PHYSICAL THERAPIST NON-EXEMPT Discharge Summary Discharge Summary Provider Notified : Nursing Reason for Discharge : Discharged from hospital, Discharge order Discharged to, Therapy : Home, independently Discharge Summary Comment, PT : As of 10/31, pt able to ambulate 24' with a walker and Sarina. Ang Wall PHYSICAL THERAPIST NON-EXEMPT - 10/31/2020 16:28 EDT Short Term Goals Ambulation STG Grid Goal #1 Device : Walker, front wheel Distance : 100 ft Assist : Assist, minimal Date to Meet : 11/06/2020 EDT Goal Status : Not met Ang Wall PHYSICAL THERAPIST NON-EXEMPT - 10/31/2020 16:28 EDT Purchasing Manager Goals Mobility/Bed Mobility LTG PT Grid Goal #1 Activity : Sit to stand Assist : Independent, modified Date to Meet : 11/13/2020 EDT Goal Status : Not met Ang Wall, PHYSICAL THERAPIST NON-EXEMPT - 10/31/2020 16:28 EDT Ambulation LTG Grid Goal #1 Device : Cane, single point Distance : 300 ft Assist : Independent, modified Date to Meet : 11/13/2020 EDT Goal Status : Not met Ang Wall PHYSICAL THERAPIST NON-EXEMPT - 10/31/2020 16:28 EDT documented in this encounter Plan of Treatment Not on file documented as of this encounter Visit Diagnoses Not on filedocumented in this encounter
--- OUTSIDE RECORDS SUMMARY | 2024-12-13 13:47 | XMS_ITS | Encounter Summary ---
Author Organization [employer] Address [address] [place] [address] Care Team Providers Care Gang Head Saw Operator Name Role Phone Unavailable Primary Care Provider Unavailabl e Encounter Details Date Type Department Care Team (Late st Contact Info) Description 10/31/2020 Transcribed Document [facility] [place] [address] [place] [address] ProviderChristina MD [address] [place] [address] Social History Tobacco Use Types Packs/Day Years Used Date Smoking Tobacco: Never Assessed Sex and Gender Information Value Date Recorded Sex Assigned at Not on file Legal Sex Male 1:42 PM CDT Gender Identity Not on file Sexual Orientation Not on file documented as of this encounter Miscellaneous Notes * Cerner Conversion Note - Christina ProviderMD - 10/31/2020 1:45 PM CDT Final Discharge Planning Entered On: 10/31/2020 13:46 EDT Performed On: 10/31/2020 13:45 EDT by PRIETO MILLS RN-Refrigeration Installer Final Discharge Planning Discharge Arrangements : Patient Post-Acute Information Patient Name: GIGI SAMANIEGO SR Gender: Male : 51 Age: 65 Years No Post-Acute Placement(s) Listed No Post-Acute Service(s) Listed No [place] Referral(s) Listed Transportation Needs : Family/Friend Is Patient High/Moderate Readmission Risk? : No Patient/Family Notified of Plan : Yes Is Patient Ready for Discharge? : Yes Physician Notified Patient is Ready for Discharge? : Yes Discharge To Care Management : Home/Residential/Long Term or Self Care - PRIETO MILLS RN-Refrigeration Installer - 10/31/2020 13:45 EDT Final Narrative Note Final Narrative Note : Discharged to home, agreeable. No needs verbalized at this time. PRIETO MILLS RN-Refrigeration Installer - 10/31/2020 13:45 EDT documented in this encounter Plan of Treatment Not on file documented as of this encounter Visit Diagnoses Not on filedocumented in this encounter
--- OUTSIDE RECORDS SUMMARY | 2024-12-13 13:47 | XMS_ITS | Referral Summary ---
Author Organization [employer] Address [address] [place] [address] Care Team Providers Care Roving Marker Name Role Phone Unavailable Primary Care Provider Unavailabl e Social History Tobacco Use Types Packs/Day Years Used Date Smoking Tobacco: Never Assessed Sex and Gender Information Value Date Recorded Sex Assigned at Not on file Legal Sex Male 1:42 PM CDT Gender Identity Not on file Sexual Orientation Not on file Plan of Treatment Not on file
--- OUTSIDE RECORDS SUMMARY | 2024-12-13 13:47 | XMS_ITS | Encounter Summary ---
Author Organization Healthcare Address [address] [place] [address] Care Team Providers Care Overnight Cashier Name Role Phone Teo Dominguez MD Primary Care Provider + [phone] See Gann MD Unavailable [phone] Rufina Shrestha DDS Unavailable + Varinder Dey DMD Unavailable [phone] Encounter Details Date Type Department Care Team (Late st Contact Info) Description 04/17/2024 Orders Only External Location [address] [place] [address] Mehul Calderon MD [address] [address] Social History Tobacco Use Types Packs/Day Years [...] Name Priority Date/Time Associated Diagnosis Comments CT OUTSIDE IMAGES 04/17/2024 2:06 PM EDT documented in this encounter Results * CT OUTSIDE IMAGES (04/17/2024 2:06 PM EDT) Anatomical Region Laterality Modality Computed Tomogra phy 04/17/2024 2:06 PM EDT Mehul Calderon MD IMG CT PROCEDURES Final Result documented in [...] documented as of this encounter Care Teams Overnight Cashier Relationship Specialty Start Date End Date Teo Dominguez MD [address] [place] [address] PCP - General 11/08/20 See Gann MD [address] [place] [address] Surgeon Neurosurgery 01/07/21 Rufina Shrestha DDS [address] [place] [address] Dentist Dentist 08/19/22 Varinder Dey DMD [address] [place] [address] Dentist 08/19/22 documented as of this encounter
--- OUTSIDE RECORDS SUMMARY | 2024-12-13 13:47 | XMS_ITS | Encounter Summary ---
Author Organization [employer] Address [address] [place] [address] Care Team Providers Care Social Services Specialist Name Role Phone Unavailable Primary Care Provider Unavailabl e Encounter Details Date Type Department Care Team (Late st Contact Info) Description 10/29/2020 Transcribed Document [facility] [place] [address] [place] [address] ProviderChristina MD [address] [place] [address] Social History Tobacco Use Types Packs/Day Years Used Date Smoking Tobacco: Never Assessed Sex and Gender Information Value Date Recorded Sex Assigned at Not on file Legal Sex Male 1:42 PM CDT Gender Identity Not on file Sexual Orientation Not on file documented as of this encounter Miscellaneous Notes * Cerner Conversion Note - Historical ProviderMD - 10/29/2020 11:44 PM CDT Pain Assessment Entered On: 10/30/2020 4:28 EDT Performed On: 10/30/2020 1:13 EDT by GO CALL RN Intervention Information: acetaminophen Performed by GO CALL RN on 10/30/2020 00:13:00 EDT acetaminophen,650mg Oral,Headache Pain Assessment Pain Assessment : Follow-up assessment Pain Scale Used : FACES GO CALL RN - 10/30/2020 4:28 EDT Pain Scale Intensity : 0 GO CALL RN - 10/30/2020 4:28 EDT Image 4 - Images currently included in the form version of this document have not been included in the text rendition version of the form. documented in this encounter Plan of Treatment Not on file documented as of this encounter Visit Diagnoses Not on filedocumented in this encounter
--- OUTSIDE RECORDS SUMMARY | 2024-12-13 13:47 | XMS_ITS | Encounter Summary ---
Author Organization Healthcare Address [address] [place] [address] Care Team Providers Care Barking Machine Feeder Name Role Phone Teo Dominguez MD Primary Care Provider + [phone] See Gann MD Unavailable [phone] Rufina Shrestha DDS Unavailable + Varinder Dey DMD Unavailable [phone] Encounter Details Date Type Department Care Team (Late st Contact Info) Description 12/12/2024 Community [facility] Community Practice [address] [place] [address] Veronica Edmond MD [address] [place] [address] Social History Tobacco Use Types Packs/Day Years [...] documented as of this encounter Care Teams Barking Machine Feeder Relationship Specialty Start Date End Date Teo Dominguez MD [address] [place], [place] [phone] PCP - General 11/08/20 See Gann MD [address] [place] [address] Surgeon Neurosurgery 01/07/21 Rufina Shrestha DDS [address] [place] [address] Dentist Dentist 08/19/22 Varinder Dey DMD [address] [place] [address] Dentist 08/19/22 documented as of this encounter
--- OUTSIDE RECORDS SUMMARY | 2024-12-13 13:47 | XMS_ITS | Encounter Summary ---
Author Organization Healthcare Address [address] [place] [address] Care Team Providers Care Electrification Adviser Name Role Phone Teo Dominguez MD Primary Care Provider + [phone] See Gann MD Unavailable [phone] Rufina Shrestha DDS Unavailable + Varinder Dey DMD Unavailable [phone] Encounter Details Date Type Department Care Team (Late st Contact Info) Description 09/17/2024 Orders Only External Location [address] [place] [address] Provider, External Social History Tobacco Use Types [...] Associated Diagnosis Comments CT NEURO OUTSIDE IMAGES 09/17/2024 12:17 PM EDT documented in this encounter Results * CT NEURO OUTSIDE IMAGES (09/17/2024 12:17 PM EDT) Anatomical Region Laterality Modality Computed Tomogra phy 09/17/2024 12:1 7 PM EDT us External Provider IMG CT [...] documented as of this encounter Care Teams Electrification Adviser Relationship Specialty Start Date End Date Teo Dominguez MD [address] [place] [address] [phone] PCP - General 11/08/20 See Gann MD [address] [place] [address] Surgeon Neurosurgery 01/07/21 Rufina Shrestha DDS [address] [place] [address] Dentist Dentist 08/19/22 Varinder Dey DMD [address] [place] [address] Dentist 08/19/22 documented as of this encounter
--- OUTSIDE RECORDS SUMMARY | 2024-12-13 13:47 | XMS_ITS | Data Portability ---
Author Organization [facility] [place] Address [address] [place] [address] Assessment No assessment recorded. Plan of Treatment Reminders Order Date Submit Date Provider Last Modified By Organization Details Last Modified Time Details Appointments None recorded. Lab PSA, serum or plasma [address], [address], 05:44:11 urinalysis , dipstick [address], [address], 13:35:05 Referral None recorded. Procedures bladder scan (PROC) [address], [address], 13:35:05 Surgeries None recorded. Imaging None recorded. Medication Orders alfuzosin ER 10 mg tablet,ext ended release 24 hr 2022 [facility], [address], [address], [place], [address], 12:50:17 Patient TargetsNo targets recorded. Patient InstructionsNo instructions recorded. Reason for Referral None Reported. Results Created Date Observation Date Name Description Value Unit Range Abnormal Flag Note LastModifiedBy Organization Detail LastModifiedTime 04/21/2004/21/2023 PROST ATE SPECI FIC AG (PSA) prostate specific Ag (PSA) 2.40 NG/mL 0.0-4. 0 Not Available [facility] (Lab Registration) [address] , [place], [address], 04/21/2023 16:54:55 04/21/2004/21/2023 PROST ATE SPECI FIC AG (PSA) note Unles s other kenny noted testi ng perfo rmed at: [facility] [address] [place] [address] [phone] Zachery tijerina MD CLIA: [id number] Not Available [facility] (Lab Registration) [address] , [place], [address], 04/21/2023 16:54:55 04/21/2004/21/2023 urina lysis , dipst ick Leukocytes (reference range) negati ve Not Available [address], [address], 04/21/2023 12:02:01 04/21/2004/21/2023 urina lysis , dipst ick Nitrite (reference range:) negati ve Not Available [address], [address], 04/21/2023 12:02:01 04/21/2004/21/2023 urina lysis , dipst ick Urobilinogen (reference range) 0.2 Not Available [address], [address], 04/21/2023 12:02:01 04/21/2004/21/2023 urina lysis , dipst ick Protein (reference range) negati ve Not Available [address], [address], 04/21/2023 12:02:01 04/21/2004/21/2023 urina lysis , dipst ick pH (reference range 5-8.5) 7.0 Not Available [address], [address], 04/21/2023 12:02:01 04/21/2004/21/2023 urina lysis , dipst ick Blood (reference range:) negati ve Not Available [address], [address], 04/21/2023 12:02:01 04/21/2004/21/2023 urina lysis , dipst ick Specific [place] (reference range) 1.020 Not Available [address], [address], 04/21/2023 12:02:01 04/21/2004/21/2023 urina lysis , dipst ick Ketone (reference range) negati ve Not Available [address], [address], 04/21/2023 12:02:01 04/21/2004/21/2023 urina lysis , dipst ick Bilirubin (reference range) negati ve Not Available [address], [address], 04/21/2023 12:02:01 04/21/2004/21/2023 urina lysis , dipst ick Glucose (reference range) negati ve Not Available [address], [address], 04/21/2023 12:02:01 04/21/2004/21/2023 bladd er scan (PROC ) Calculated Residual Urine: 24 ml Not Available [address], [address], 04/21/2023 12:02:23 Result Notes None recorded. Problems Name Problem SNOMED Code Status Onset Date Resolution Date Notes Provider Name and Address Organization Details Recorded Time Myocardial infarction 80462000 Active 2022 Princess nash, PACO ROBERTSON [facility] & [place] 3 09:52:17 Hypertensive disorder 20868631 Active 2022 Princess nash, PACO Amaral LPNT [facility] & [place] 3 09:52:22 Cerebrovascula r accident 278808229 Active 2022 Princess nash, PACO Amaral LPNT [facility] & [place] 3 09:52:27 Diabetes mellitus 10579541 Active 2022 Princess nash, PACO Amaral [place] [facility] [place] 3 09:52:34 Acute hepatitis 51806582 Active 2022 Princess nash, PACO ROBERTSON [facility] & [place] 3 09:52:47 Gastroesophage al reflux disease 535959285 Active 2022 Princess nash, PACO Amaral LPNT [facility] & [place] 3 09:52:53 Arthritis 9612105 Active 2022 Princess nash, PACO Amaral LPNT [facility] & [place] 3 09:52:59 Problem Notes None recorded. 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 Procedure [...] Available Not Available No t Available neomycin-polymy ilz-dexameth 3.5 mg/mL-10,000 unit/mL-0.1% eye drops active Not [...] Updated DateTime 04/21/2023 172.72 cm 30.7 kg/m2 72605.66 g 97.9 [degF] Princess Macario [facility] & [place] 04/21/2023 09:51:06 Social History None recorded. Functional Status Question Answer Note LastModified by Organization D etails LastModified Time What is your level of alcohol consumption? None [email or web address] Information not available 04/21/2023 Mental Status None recorded. Family History Relationship Description Onset Age of this Age Resolved Age Notes LastModified by Organization Details LastModified Time Mother Malignant neoplastic disease dec [email or web address] Not available 2022 09:58:44 Father Myocardial infarction dec [email or web address] Not available 04/21 09:59:00 Medical History No medical history recorded. Past Encounters Encounter ID Performer Location Encounter Start Date Encounter Closed Date Diagnosis/Indication Diagnosis SNOMED-CT Code Diagnosis ICD10 Code Diagnosis Note [id number] Zack Duval Jr, MD [facility] [address] [address] 04/21/2023 09:33:27 04/21/2023 11:15:56 Benign prostatic hyperplasia with outflow obstruction 687278673 N40.1 Patient with history of lower urinary [...] well. Screening for malignant neoplasm of prostate 621478297 Z12.5 prostate exam today he is benign. We will check a PSA. Health Concerns Section Related Observation LastModified by Organization Detai ls LastModified Time None Recorded Concern Status LastModified by Organization Details LastModified Time None Recorded Advance Directives Directive None Recorded Payers Insurance Date Sequence Insurance Name Policy Number Policy Luciano Covered Member ID Luciano Member ID Guarantor Name 05/07/2024 3 [employer] Gigi Wiley [id number] Gigi Wiley Sr 05/07/2024 1 [employer] (MEDICARE REPLACEMENT/ ADVANTAGE - PPO) Gigi Crowderpool [id number] Gigi Crowderpool Sr 05/07/2024 2 AETNA [facility] (MEDICAID HMO) Gigi Crowderpool [id number] Gigi Crowderpool Sr Notes Date Note Type Note Provider Name and Address Organization Details Recorded Time 04/21/2023 text/html Patient is a 67-year-old white male with a history lower urinary tract symptoms. I saw the patient previously at [facility]. He has been about a year since [...] residual 24 cc. Zack Duval Jr, MD [address] [place] [address], [address], [place], [address], [facility] - [place] & [place] 04/21/2023 12:51:33
--- OUTSIDE RECORDS SUMMARY | 2024-12-13 13:47 | XMS_ITS | Encounter Summary ---
Author Organization Healthcare Address [address] [place] [address] Care Team Providers Care Blower Feeder Dyed Raw Stock Name Role Phone Teo Dominguez MD Primary Care Provider + [phone] See Gann MD Unavailable [phone] Rufina Shrestha DDS Unavailable + Varinder Dey DMD Unavailable [phone] Encounter Details Date Type Department Care Team (Late st Contact Info) Description 09/17/2024 Orders Only External Location [address] [place] [address] Provider, External Social History Tobacco Use Types [...] Name Priority Date/Time Associated Diagnosis Comments CT MSK OUTSIDE IMAGES 09/17/2024 12:20 PM EDT documented in this encounter Results * CT MSK OUTSIDE IMAGES (09/17/2024 12:20 PM EDT) Anatomical [...] documented as of this encounter Care Teams Blower Feeder Dyed Raw Stock Relationship Specialty Start Date End Date Teo Dominguez MD [address] [place] [phone] PCP - General 11/08/20 See Gann MD [address] [place] [address] Surgeon Neurosurgery 01/07/21 Rufina Shrestha DDS [address] [place] [address] Dentist Dentist 08/19/22 Varinder Dey DMD [address] [place] [address] Dentist 08/19/22 documented as of this encounter
--- OUTSIDE RECORDS SUMMARY | 2024-12-13 13:47 | XMS_ITS | Encounter Summary ---
Author Organization [employer] Address [address] [place] [address] Care Team Providers Care Oracle Financial Application Developer Name Role Phone Unavailable Primary Care Provider Unavailabl e Encounter Details Date Type Department Care Team (Late st Contact Info) Description 10/30/2020 Transcribed Document [facility] Family Medicine [address] [place] [address] ProviderChristina MD [address] [place] [address] Social History Tobacco Use Types Packs/Day Years Used Date Smoking Tobacco: Never Assessed Sex and Gender Information Value Date Recorded Sex Assigned at Not on file Legal Sex Male 1:42 PM CDT Gender Identity Not on file Sexual Orientation Not on file documented as of this encounter Miscellaneous Notes * Cerner Conversion Note - Christina Jarvis MD - 10/30/2020 4:42 PM CDT DATE OF SERVICE: 10/30/2020 REPORT TYPE: EEG REFERRING PHYSICIAN: Zack Henderson MD An EEG is requested in a 65-year-old male with recent syncope. Throughout the tracing, there are intermittent runs of moderately well regulated posteriorly dominant 8-10 cycle per second alpha rhythm. No epileptiform features are observed. The patient does become drowsy intermittently with a concomitant reduction in the background frequency and amplitude. Photic stimulation is performed and produces no change in the tracing. Hyperventilation is not performed. CLINICAL IMPRESSION: This EEG performed during wakefulness is normal. However, the absence of epileptiform features does not exclude the diagnosis of a seizure disorder. Clinical correlation is advised. /[id number] Zack Henderson MD WSB/AQ / WSB / MODL /[id number] documented in this encounter Plan of Treatment Not on file documented as of this encounter Visit Diagnoses Not on filedocumented in this encounter
--- OUTSIDE RECORDS SUMMARY | 2024-12-13 13:47 | XMS_ITS | Encounter Summary ---
Author Organization Healthcare Address [address] [place] [address] Care Team Providers Care Assistant Professor Of Communication Name Role Phone Teo Dominguez MD Primary Care Provider + [phone] See Gann MD Unavailable [phone] Rufina Shrestha DDS Unavailable + Varinder Dey DMD Unavailable [phone] Encounter Details Date Type Department Care Team (Late st Contact Info) Description 02/08/2024 Orders Only External Location [address] [place] [address] Provider, External Social History Tobacco Use Types [...] Date/Time Associated Diagnosis Comments CT OUTSIDE IMAGES 02/08/2024 2:14 PM EDT documented in this encounter Results * CT OUTSIDE IMAGES (02/08/2024 2:14 PM EDT) Anatomical Region Laterality Modality Computed Tomogra phy 02/08/2024 2:14 PM EDT us External Provider IMG CT [...] plan has been documented for the patient 08/19/2022 2:49 PM EST documented as of this encounter Care Teams Assistant Professor Of Communication Relationship Specialty Start Date End Date Teo Dominguez MD [address] [place] [address] PCP - General 11/08/20 See Gann MD [address] [place] [address] Surgeon Neurosurgery 01/07/21 Rufina Shrestha DDS [address] [place] [address] Dentist Dentist 08/19/22 Varinder Dey DMD [address] [place] [address] Dentist 08/19/22 documented as of this encounter
--- OUTSIDE RECORDS SUMMARY | 2024-12-13 13:47 | XMS_ITS | Encounter Summary ---
Author Organization [employer] Address [address] [place] [address] Care Team Providers Care Assembler Filters Name Role Phone Unavailable Primary Care Provider Unavailabl e Encounter Details Date Type Department Care Team (Late st Contact Info) Description 10/30/2020 Transcribed Document [facility] [place] [address] [place] [address] ProviderChristina MD [address] [place] [address] Social History Tobacco Use Types Packs/Day Years Used Date Smoking Tobacco: Never Assessed Sex and Gender Information Value Date Recorded Sex Assigned at Not on file Legal Sex Male 1:42 PM CDT Gender Identity Not on file Sexual Orientation Not on file documented as of this encounter Miscellaneous Notes * Cerner Conversion Note - Historical ProviderMD - 10/30/2020 1:16 PM CDT Neurodiagnostics Event Note Entered On: 10/30/2020 13:16 EDT Performed On: 10/30/2020 13:16 EDT by CARLOTA MORLEY Neurodiagnostic Tech Neurodiagnostics Event Note Neurodiagnostic Event Date/Time : 10/30/2020 13:16 EDT Neurodiagnostic Event Location : Assigned room Neurodiagnostic Event Details : Procedure completed CARLOTA MORLEY Neurodiagnostic Tech - 10/30/2020 13:16 EDT documented in this encounter Plan of Treatment Not on file documented as of this encounter Visit Diagnoses Not on filedocumented in this encounter
--- OUTSIDE RECORDS SUMMARY | 2024-12-13 13:47 | XMS_ITS | Encounter Summary ---
Author Organization Healthcare Address [address] [place] [address] Care Team Providers Care Bricklayer Helper Name Role Phone Teo Dominguez MD Primary Care Provider [phone] See Gann MD Unavailable [phone] Rufina Shrestha DDS Unavailable + Varinder Dey DMD Unavailable [phone] Reason for Referral * Consultation (Routine) - Closed Specialty Diagnoses / Procedures Referred By Contac t Referred To Contact Neurosurgery Diagnoses Abnormal MRI, spine Mehul Winston APRN [address] [place] [address] Phone: tel: fax: Referral ID Status Reason Start Date Expiration Date V isits Requested Visits Authorized [id number] Closed Specialty Services Required 12/05/2020 06/03/2021 1 1 Encounter Details Date Type Department Care Team (Late st Contact Info) Description 12/05/2020 Community [facility] Community Practice [address] [place] [address] Mehul Winston, DATA CONTROL CLERK [address] [place] [address] Abnormal MRI, spine (Primary Dx) Social History Tobacco Use Types Packs/Day Years Used Date Smoking Tobacco: Former Sex and Gender Information Value Date Recorded Sex Assigned at Male 12/19/2021 7:10 AM EDT Legal Sex Male 7:57 PM EDT Gender Identity Male 12/19/2021 7:10 AM EDT Sexual Orientation Not on file documented as of this encounter Plan of Treatment Scheduled Referrals Name Type Priority Associated Diagnoses Order Schedule Ambulatory Referral to Neurosurgery Outpatient Referral Routine Abnormal MRI, spine Ordered: 12/05/2020 documented as of this encounter Visit Diagnoses Diagnosis Abnormal MRI, spine- Primary documented in this encounter Care Teams Bricklayer Helper Relationship Specialty Start Date End Date Teo Dominguez MD [address] [place] [address] [id number] PCP - General 11/08/20 See Gann MD [address] [place] [address] Surgeon Neurosurgery 01/07/21 Rufina Shrestha DDS [address] [place] [address] Dentist Dentist 08/19/22 Varinder Dey DMD [address] [place] [address] Dentist 08/19/22 documented as of this encounter
--- OUTSIDE RECORDS SUMMARY | 2024-12-13 13:47 | XMS_ITS | Encounter Summary ---
Author Organization [employer] Address [address] [place] [address] Care Team Providers Care Development Officer Name Role Phone Unavailable Primary Care Provider Unavailabl e Encounter Details Date Type Department Care Team (Late st Contact Info) Description 10/30/2020 Transcribed Document [facility] Family Medicine [facility] [place] [address] ProviderChristina MD [address] [place] [address] Social History Tobacco Use Types Packs/Day Years Used Date Smoking Tobacco: Never Assessed Sex and Gender Information Value Date Recorded Sex Assigned at Not on file Legal Sex Male 1:42 PM CDT Gender Identity Not on file Sexual Orientation Not on file documented as of this encounter Miscellaneous Notes * Cerner Conversion Note - Christina ProviderMD - 10/30/2020 11:07 AM CDT Initial Discharge Planning Entered On: 10/30/2020 11:14 EDT Performed On: 10/30/2020 11:07 EDT by PRIETO MILLS RN-Outside Sales Representative Initial Assessment I Previously Documented Living Environment : No qualifying data available. Living Situation : Home Patient Lives With : Alone Is the Patient a Caregiver at Home? : No Emergency Contact #1 : Katlyn Nolan Emergency Contact #1 Emergency Contact #1 Relationship : Granddaughter Emergency Contact #2 : n Emergency Contact #2 Phone Number : n Emergency Contact #2 Relationship : n Enter Doctors Name : Teo Dominguez Does Patient have PCP Listed? : Yes Legal Guardian : No Is Guardianship Needed : No PRIETO MILLS RN-Outside Sales Representative - 10/30/2020 11:07 EDT Initial Assessment II Sensory and Motor Deficits : None Current Home Treatments and Equipment : None PRIETO MILLS RN-Outside Sales Representative - 10/30/2020 11:07 EDT Discharge Needs I Anticipated Discharge Date : 10/31/2020 EDT Anticipated Discharge To, CM : Home with family care Current Home Treatment/Equipment : Current Home Treatment/Equipment No qualifying data available. Post Acute/Home Treatments : None Documentation Status Complete : Yes PRIETO MILLS RN-Outside Sales Representative - 10/30/2020 11:07 EDT Discharge Needs II Professional Skilled Services : Professional Skilled Services No qualifying data available. Needs Assistance with Transportation : No PRIETO MILLS RN-Outside Sales Representative - 10/30/2020 11:07 EDT Narrative Note Narrative Note : Received from outside facility to here due to headache, placed in observation. Neurology has been consulted. Met with Pt at the bedside. Role of CM explained. Pt states that he is ADL independent, lives home alone, but has his estonian yeager (like my service dog). Plans are to return home when discharged. Pt states that he has bulging discs and wonders if these are causing his issues. No needs anticipated/verbalized at this time. RRS is low @ 31, boost 5. CM will follow. PRIETO MILLS RN-Outside Sales Representative - 10/30/2020 11:07 EDT documented in this encounter Plan of Treatment Not on file documented as of this encounter Visit Diagnoses Not on filedocumented in this encounter
--- OUTSIDE RECORDS SUMMARY | 2024-12-13 13:47 | XMS_ITS | Encounter Summary ---
Author Organization [facility] [facility] Address [address] [place] [address] Care Team Providers Care Manufacturing Scheduler Name Role Phone Unavailable Primary Care Provider Unavailabl e Encounter Details Date Type Department Care Team (Late st Contact Info) Description 10/30/2020 Transcribed Document [facility] Family Medicine [address] [place] [address] ProviderChristina MD [address] [place] [address] Social History Tobacco Use Types Packs/Day Years Used Date Smoking Tobacco: Never Assessed Sex and Gender Information Value Date Recorded Sex Assigned at Not on file Legal Sex Male 1:42 PM CDT Gender Identity Not on file Sexual Orientation Not on file documented as of this encounter Miscellaneous Notes * Cerner Conversion Note - Historical ProviderMD - 10/30/2020 1:21 PM CDT UM Authorization Entered On: 10/30/2020 13:21 EDT Performed On: 10/30/2020 13:21 EDT by Nasima Salgado Rn-Utilization Review Primary Insurance Authorization Authorization and Policy Numbers : Insurance 1 Health Plan: [employer] CHO[employer] PPO Policy Number: [id number] Authorization Number: Insurance 2 Health Plan: [employer] [facility] Policy Number: [id number] Authorization Number: Historical Authorization Comments-Primary : No Authorization Comments Found Nasima Salgado Rn-Utilization Review - 10/30/2020 13:21 EDT documented in this encounter Plan of Treatment Not on file documented as of this encounter Visit Diagnoses Not on filedocumented in this encounter
--- OUTSIDE RECORDS SUMMARY | 2024-12-13 13:47 | XMS_ITS | Clinical Summary ---
Author Organization [facility] Address [address] [place] [address] Care Team Providers Care It Administrator Name Role Phone Teo Dominguez MD Primary Care Provider + [phone] See Gann MD Unavailable [phone] Rufina Shrestha DDS Unavailable + Varinder Dey DMD Unavailable [phone] Allergies Active Allergy Reactions Criticality Noted Date Comments Hydromorphone Anaphylaxis High 12/16/2021 Latex Unknown - Patient st ates they do not know rxn details Low 03/17/2017 Penicillins Rash Low 05/07/2006 Sulfa Drugs Unknown - Patient st ates they do not know rxn details Low 08/08/2015 Medications levothyroxine (Synthroid, Levoxyl) 75 MCG tablet 1 tablet (75 mcg) 1 (one) time each day. 6 Active metFORMIN (Glucophage) 500 MG tablet 1 tablet (500 mg) 1 (one) time each day with breakfast. 6 Active Blood Glucose Monitoring Suppl (Accu-Chek Kiki Plus) w/Device kit 0 Active Accu-Chek Kiki Plus test strip 0 Active Accu-Chek Softclix Lancets lancets 0 Active losartan (Cozaar) 50 MG tablet Take 1 tablet (50 mg) by mouth 1 (one) time each day. 1 Active ondansetron (Zofran) 4 MG tablet 1 tablet (4 mg) every 8 (eight) hours if needed. 1 Active sildenafil (Revatio) 20 MG tablet Take 1 tablet (20 mg) by mouth if needed. Active atorvastatin (Lipitor) 40 MG tablet 1 tablet (40 mg) 1 (one) time each day. 2 Active fluticasone (Flonase) 50 MCG/ACT nasal spray if needed. 10/28/19 2 2 Active LORazepam (Ativan) 0.5 MG tablet 1 tablet (0.5 mg) 2 (two) times a day if needed. 2 Active metoprolol succinate XL (Toprol-XL) 25 MG 24 hr tablet 1 tablet (25 mg) 1 (one) time each day. 2 Active omeprazole (PriLOSEC) [address] capsule 1 capsule (20 mg) 1 (one) time each day. 2 Active hydroCHLOROthiazide (Microzide) 12.5 MG capsule 1 capsule (12.5 mg) 1 (one) time each day in the morning. 2 Active alfuzosin (Uroxatral) 10 MG 24 hr tablet 1 tablet (10 mg) 1 (one) time each day. 2 Active methocarbamol (Robaxin) 500 MG tablet Take 1 tablet (500 mg) by mouth if needed for muscle spasms. Active aspirin 81 MG EC tablet Take 1 tablet (81 mg) by mouth 1 (one) time each day. Active ranolazine (Ranexa) 500 MG 12 hr tablet Take 1 tablet (500 mg) by mouth 2 (two) times a day. Do not crush, chew, or split. Active pantoprazole (Protonix) 40 MG EC tablet 2 Active cetirizine (ZyrTEC) 10 MG tablet .COMPLEX 4 Active neomycin-polymyxin- dexamethamethasone (Polydex) 3.5-81583-8.1 ointment ophthalmic ointment 3 Active ondansetron ODT (Zofran-ODT) 4 MG disintegrating tablet 4 Active sucralfate (Carafate) 1 GM/10ML suspension 4 Active Active Problems Problem Noted Date Diagnosed Date Cervicogenic headache 08/19/2022 Atypical face pain 08/19/2022 Type 2 diabetes mellitus, wi thout long-term current use of insulin 02/25/2022 Hypertension 02/25/2022 Class 1 obesity due to exces s calories without serious comorbidity in adult 02/25/2022 Abdominal aortic aneurysm (AAA) without rupture 12/01/2021 Overview (12/20/2021): CT a/p w/o contrast demonstrated a 4.8cm infrarenal AAA. This had increased in size from 4.4cm on 09/01. 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 Encounters Date Type Department Care Team Description 12/12/2024 Community Orders Community Practice [address] [place] [address] Veronica Edmond MD 10/02/2024 Telephone [facility] [address] [place] [address] Harsh Frost 09/17/2024 Orders Only External Location [address] [place] [address] Provider, External 09/17/2024 Orders Only External Location [address] [place] [address] Provider, External 09/17/2024 Orders Only External Location [address] [place] [address] Provider, External from Last 3 Months Family History Medical History Relation Name Comments Conversions - Other Other Family h istory unknown Relation Name Status Comments Other Social History Tobacco Use Types Packs/Day Years Used Date Smoking Tobacco: Former Cigarettes 3 22 1 985 - 2007 Smokeless Tobacco: Never Tobacco Cessation:Counseling Given: Not Answered Alcohol Use Standard Drinks/Week Comments Not Currently 0 (1 standard drink = 0.6 oz pur e alcohol) PHQ-2 Answer Date Recorded Patient Health Questionnaire-2 Score 6 12/01/2021 Sex and Gender Information Value Date Recorded Sex Assigned at Male 12/19/2021 7:10 AM EDT Legal Sex Male 7:57 PM EDT Gender Identity Male 12/19/2021 7:10 AM EDT Sexual Orientation Not on file Last Filed Vital Signs Vital Sign Reading Time Taken Comments Blood Pressure 94/57 03/01/2024 11:35 AM EDT Pulse 59 03/01/2024 11:35 AM EDT Temperature 36.9 C (98.4 F) 03/01/2024 11:18 AM EDT Respiratory Rate 16 12/21/2021 11:1 7 AM EDT Oxygen Saturation 93% 08/17/2022 1:24 PM EST Inhaled Oxygen Concentration - - Weight 95.7 kg (210 lb 15.7 oz) 024 11:18 AM EDT Height 172.7 cm (5' 7.99 ) 03/01/2024 1 1:18 AM EDT Body Mass Index 32.09 03/01/2024 11:18 AM EDT Plan of Treatment Health Maintenance Due Date Last Done Comments [facility]-Diabetes: Hemoglobin A1C 1953 [facility]-Hepatitis C Screening 1953 [facility]-Medicare Annual Wellness (AWV) 1953 [facility]-/Child/Adol SDOH Screenings 1953 Diabetes: Dental Exam 1963 [facility]- SDOH Screenings 1971 [facility]-Adult SDOH Screenings 1971 [facility]-DTaP,Tdap,and Td Vaccines (1 - Tdap) 1972 [facility]-Pneumococcal Vaccine: 50+ Years (1 of 2 - PCV) 1972 CT Colonography 1998 Colonoscopy 1998 [facility]-DNA 1998 FIT 1998 FOBT 1998 Sigmoidoscopy 1998 [facility]-Colorectal Cancer Screening 1998 [facility]-Zoster Vaccines (1 of 2) 2003 [facility]-RSV Vaccine: 60+ Years or (1 - Risk 60-74 years 1-dose series) 2013 [facility]-Abdominal Aortic Aneurysm (AAA) Screening 2018 [id number]-[id number]-77 Vaccine (3 - Moderna risk series) 04/04/2021 03/07/2021, 02/07/2021 [facility]-Depression Screening 12/01/2022 12/01/2021, 11/2021 [facility]-Obesity Intervention Completed 024, 08/17/2022, 08/06/2022, Additional history exists [facility]-Influenza Vaccine Completed 05/02/2024 , 04/17/2020, 07/07/2019, Additional history exists HPV Vaccines Aged Out No longer eligi ble based on patient's age to complete this topic [facility]-HIB Vaccines Aged Out No longer e ligible based on patient's age to complete this topic [facility]-Hepatitis A Vaccines Aged Out No longer eligible based on patient's age to complete this topic [facility]-IPV Vaccines Aged Out No longer e ligible based on patient's age to complete this topic [facility]-Rotavirus Vaccines Aged Out No lo nger eligible based on patient's age to complete this topic Medical Devices Implanted Type Area Tower Switch Operator Device Identifier Shelf Expiration Date Model / Serial / Lot Eye Gold Weight Eye Gold Weight Right: Ear 16mm (Prox) X 20mm (Distal) X 146mm Total Covered, Endurant Ii Aaa Contralateral Limb Stent Graft Implanted:Qty: 1 on 12/22/2021 by Lan Gray MD at [facility] Stent 08/20/2023 [id number] / [id number] / [id number] Description:Ref#[id number] Endurant Iis Bifurcated [id number] - [id number] Implanted:Qty: 1 on 12/19/2021 by Lan Gray MD at [facility] N/A: Aorta Medtronic [facility]-[id number] 07/08/2023 [id number] / [id number] / [id number] Endurant Ii Contra Limb [id number] - [id number] Implanted:Qty: 1 on 12/19/2021 by Lan Gray MD at [facility] Right: Arterial Medtronic [facility]-[id number] 07/16/2023 [id number] / [id number] / [id number] Procedures Procedure Name Priority Date/Time Associated Diagnosis Comments CT MSK OUTSIDE IMAGES 09/17/2024 12:[address] THORACIC OUTSIDE IMAGES 09/17/2024 12:[address] NEURO OUTSIDE IMAGES 09/17/2024 12:17 PM EDT from Last 3 Months Results * CT THORACIC OUTSIDE IMAGES (09/17/2024 12:20 PM EDT) Anatomical Region Laterality Modality Computed Tomogra phy 09/17/2024 12:2 0 PM EDT us External Provider IMG CT PROCEDURES Final Result * CT MSK OUTSIDE IMAGES (09/17/2024 12:20 PM EDT) Anatomical Region Laterality Modality Computed Tomogra phy 09/17/2024 12:2 0 PM EDT us External Provider IMG CT PROCEDURES Final Result * CT NEURO OUTSIDE IMAGES (09/17/2024 12:17 PM EDT) Anatomical Region Laterality Modality Computed Tomogra phy 09/17/2024 12:1 7 PM EDT us External Provider IMG CT PROCEDURES Final Result from Last 3 Months Insurance [employer] [facility] MEDICARE Advance Directives * Full Code (Latest Code Status on File) Date Activated Date Inactivated Comments 12/19/2021 11:13 AM 12/21/2021 3:38 PM Question Answer Comments Patient has decision-making capacity? Yes Care Teams It Administrator Relationship Specialty Start Date End Date Teo Dominguez MD [address] [place] [address] PCP - General 11/08/20 See Gann MD [address] [place] [address] Surgeon Neurosurgery 01/07/21 Rufina Shrestha DDS [address] [place] [address] Dentist Dentist 08/19/22 Varinder Dey DMD [address] [place] [address] Dentist 08/19/22
--- OUTSIDE RECORDS SUMMARY | 2024-12-13 13:47 | XMS_ITS | Encounter Summary ---
Author Organization [facility] Address [address] [place] [address] Care Team Providers Care Lane Attendant Name Role Phone Unavailable Primary Care Provider Unavailabl e Encounter Details Date Type Department Care Team (Late st Contact Info) Description 10/30/2020 Transcribed Document [facility] Family Medicine [address] [place] [address] ProviderChristina MD [address] [place] [address] Social History Tobacco Use Types Packs/Day Years Used Date Smoking Tobacco: Never Assessed Sex and Gender Information Value Date Recorded Sex Assigned at Not on file Legal Sex Male 1:42 PM CDT Gender Identity Not on file Sexual Orientation Not on file documented as of this encounter Miscellaneous Notes * Cerner Conversion Note - Christina ProviderMD - 10/30/2020 12:00 AM CDT Consult Phone Call Documentation Entered On: 10/30/2020 9:15 EDT Performed On: 10/30/2020 0:00 EDT by MARIA DEL ROSARIO FORTUNE Phone Call for Consults Physician Requesting Consult : AURORA ODEN DO Physician Requested for Consult : ALFREDO DALTON MD-MYRON Physician Covering for Consult : YUN HOUSTON MD-NEU Date and Time Call Returned : 10/30/2020 9:17 EDT MARIA DEL ROSARIO FORTUNE - 10/30/2020 9:16 EDT Consult Phone Call/Page Attempt : Other: left message on machine as this is his preffered method Consult Reason : headache, hx brain tumor MARIA DEL ROSARIO FORTUNE - 10/30/2020 9:15 EDT documented in this encounter Plan of Treatment Not on file documented as of this encounter Visit Diagnoses Not on filedocumented in this encounter
--- OUTSIDE RECORDS SUMMARY | 2024-12-13 13:47 | XMS_ITS | Clinical Summary ---
Author Organization [facility] Address [address] [place] [address] Care Team Providers Care Store Assistant Name Role Phone Unavailable Primary Care Provider [...]
--- OUTSIDE RECORDS SUMMARY | 2024-12-13 13:47 | XMS_ITS | Encounter Summary ---
Author Organization [facility] Address [address] [place] [address] Care Team Providers Care Travel Counselor Name Role Phone Unavailable Primary Care Provider Unavailabl e Encounter Details Date Type Department Care Team (Late st Contact Info) Description 10/29/2020 Transcribed Document [facility] [place] [facility] [place] [address] ProviderChristina MD [address] [place] [address] Social History Tobacco Use Types Packs/Day Years Used Date Smoking Tobacco: Never Assessed Sex and Gender Information Value Date Recorded Sex Assigned at Not on file Legal Sex Male 1:42 PM CDT Gender Identity Not on file Sexual Orientation Not on file documented as of this encounter Miscellaneous Notes * Cerner Conversion Note - Christina ProviderMD - 10/29/2020 9:55 PM CDT Admission History, Adult Entered On: 10/29/2020 22:36 EDT Performed On: 10/29/2020 21:55 EDT by GO CALL RN Advance Directive Patient has Advance Directive *Q : No, patient refuses Advance Directive information GO CALL RN - 10/29/2020 22:27 EDT Anesthesia/Transfusion History Family History of Anesthesia Reaction : Prior transfusion without reaction Transfusion History : Prior anesthesia without reaction Family History of Anesthesia Reaction : None GO CALL RN - 10/29/2020 22:27 EDT Functional Assessment Living Situation : Home Patient Lives With : Spouse Mobility Assistance Prior to Admission : Independent Current Home Treatments : None GO CALL RN - 10/29/2020 22:27 EDT General Info Want Family/Rep/Phys Notified of Admit : No Emergency Contact #1 : Katlyn Nolan Emergency Contact #1 Emergency Contact #1 Relationship : Granddaughter Emergency Contact #2 : n Emergency Contact #2 Phone Number : n Emergency Contact #2 Relationship : n Primary Language : German Communication Barrier : None Warehouse Specialist Needed : No GO CALL RN - 10/29/2020 22:27 EDT Fall Risk Scales ABCs Fall Injury Risk Identification : Age ABC Fall Injury Risk : Moderate to high injury risk RED Hx Falls Immediate/Within 3 Months : No Red Secondary Diagnosis : Yes RED Use of Ambulatory Aid : Crutches/Cane/Walker RED IV Therapy or IV Access : Yes Red Gait/Transferring : Normal, bedrest, immobile Red Mental Status : Oriented to own ability Red Fall Risk Score : 50 RED Fall Scale Risk Level : 46 or > High Risk Wendel Fall Interventions : Adequate lighting, Assistive devices within reach, Bed in low position, Call device within reach, Personal items within reach, Reinforced to call for assistance before getting out of bed, Room free of clutter/spills, Upper side-rails up GO CALL RN - 10/29/2020 22:27 EDT Health Histories Smoking Status : Never (less than 100 in lifetime; none in last 30 days) Smokeless Tobacco Status : Never GO CALL RN - 10/29/2020 22:27 EDT Social History (As Of: 10/29/2020 22:36:37 EDT) Height and Weight, Clinical Dosing Height Source : Stated Height Entry Format : [place] Height, Feet : 5 ft(Converted to: 152 cm, 60 Inch) Height, Inches : 8 Inch(Converted to: 0 ft 8 Inch, 20.32 cm) Clinical Height : 172.72 cm Weight Source : Standing scale Weight Entry Format : [place] Clinical Dosing Weight : 95.45 kg Weight, Pounds : 210 lb Body Surface Area (BSA) : 2.09 m2 Body Mass Index : 32 kg/m2 (HI) [place] Body Weight : 67 kg GO CALL RN - 10/29/2020 22:27 EDT Infectious Disease History Has the patient ever been tested for COVID-19? : Yes, Patient stated results Negative Date of COVID-19 test known? : Yes Date of COVID-19 Test : 09/14/2020 EDT Does patient have symptoms of COVID-19? : No COVID19 Screening : No Experiencing Infectious Disease Symptoms : No symptoms Physical contact outside [place] in the last 30 days : No Infectious Disease History : None Tuberculosis Symptoms : None GO CALL RN - 10/29/2020 22:27 EDT Influenza Vaccine Asmt, Adult Previous Vaccines from Immunization Schedule : No qualifying data available. Influenza Immunization, Current Season : Yes Influenza Immunization Date : 05/02/2020 EST GO CALL RN - 10/29/2020 22:27 EDT Pneumococcal Vaccine Previous Vaccines from Immunization Schedule : No qualifying data available. Pneumonia Immunization Received : Unknown Pneumococcal Risk Assessment < Age 65 : N/A- Patient 65 years of age or older Pneumococcal Vaccine Contraindications : No contraindications to pneumococcal vaccine Transplant Workup/Recent Transplant : No Order for Pneumococcal Vaccine : Declined Vaccination GO CALL RN - 10/29/2020 22:27 EDT Order Details Order Detail : N/A Patient Needs Meds Crushed/Liquid : No GO CALL RN - 10/29/2020 22:27 EDT Nutrition History Eating Poorly Due to Decreased Appetite : No Unplanned Weight Loss in Past 3-6 Months : No Malnutrition Screening Tool Total(mal) : 0 Malnutrition Screening Tool Risk Level : Patient not at risk GO CALL RN - 10/29/2020 22:27 EDT [place] Suicide Severity Rating Scale (C-SSRS) CSSRS Past Month Wish to be : No CSSRS Past Month Suicidal Thoughts : No CSSRS Lifetime Suicide Behavior : No Suicide Severity Rating Score : 0 Suicide Severity Rating : No Additional Care Required at this time GO CALL RN - 10/29/2020 22:27 EDT Psychosocial History Currently in Unsafe Situation : No GO CALL RN - 10/29/2020 22:27 EDT Sleep Apnea Risk Assmt Hx of Obstructive Sleep Apnea Diagnosis : No Snore Loudly : No Tired, Fatigued, or Sleepy During Day : No Observed Stopping Breathing During Sleep : No Have/Are Being Treated for Hypertension : No BMI Greater Than 35 kg/m2 : No Age over 50 Years Old : Yes Neck Circumference Greater Than 40 cm : No Gender Male : Yes STOP-BANG Sleep Apnea Risk Level Score : 2 GO CALL RN - 10/29/2020 22:27 EDT Valuables and Belongings Valuables and Belongings : Clothing, Personal items Clothing : Common streetwear Clothing Disposition : Bedside Personal Items : Rock, Cell phone Personal Items Disposition : Bedside, Sent to security/safe GO CALL RN - 10/29/2020 22:27 EDT Electronically signed by Asad Bennett Conversion Ship Engines Operating Engineer Cerner at 10/14/2022 11:43 AM CDT documented in this encounter Plan of Treatment Not on file documented as of this encounter Visit Diagnoses Not on filedocumented in this encounter
--- OUTSIDE RECORDS SUMMARY | 2024-12-13 13:47 | XMS_ITS | Encounter Summary ---
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 Name Role Phone Unavailable Primary Care Provider Unavailabl e Encounter Details Date Type Department Care Team (Late st Contact Info) Description 10/31/2020 Transcribed Document [facility] [address] [place] [address] ProviderChristina MD [address] [place] [address] Social History Tobacco Use Types Packs/Day Years Used Date Smoking Tobacco: Never Assessed Sex and Gender Information Value Date Recorded Sex Assigned at Not on file Legal Sex Male 1:42 PM CDT Gender Identity Not on file Sexual Orientation Not on file documented as of this encounter Miscellaneous Notes * Cerner Conversion Note - Christina Jarvis MD - 10/31/2020 1:[address] [facility] [place] [address] SHANNAN SAMANIEGO SR :1955 Visit Time:10/29/2020 Your Visit Summary Your Care Team Admitting Physician - SHIVANI BERMUDEZ, -INT Attending Physician - JEMIMA SALAZAR MD-FAM Primary Care Physician - MER JONES (REF)NEAL Your Diagnosis Headache, unspecified, Headache, unspecified Discharge Vitals Temperature 36.6 ??C Heart Rate (Monitored) 64 Respiratory Rate 16 Blood Pressure 112/71 What to do next Instructions From Your Care Team Discharge Follow Up Instructions: Activity: Discharge Activity: Activity as tolerated Diet: Discharge Diet: Resume usual diet as tolerated Driving Restriction: Do Not Drive Follow-Up Appointments Follow Up with Patient should follow up with his outpatient physicians at regarding the history of a brain tumor to discuss this admission. When Within 2 to 3 days Follow Up with PURNIMA ROD When Within 6 weeks Comments Patient should call for a follow up appointment with [facility]. Where: [address] [facility] [address] [place] [address] Business (1) Medications What How Much When Instructions Next Dose acetaminophen/ butalbital/ caffeine (Fioricet oral capsule) 1 Capsule(s) Oral Every 6 Hours as needed for Headache Duration: 3 Day(s) Printed Prescription atorvastatin (atorvastatin 40 mg oral tablet) 1 Tablet(s) Oral Every Day Duration: 90 Day(s) Pickup at [facility] sucralfate (Carafate 1 g/ 10 mL oral suspension) 10 Milliliter(s) Oral Before Meals Pickup at [facility] LORazepam (LORazepam 0.5 mg oral tablet) 1 Tablet(s) Oral Two Times A Day as needed for anxiety albuterol (Albuterol (Eqv-ProAir HFA) 90 mcg/ inh inhalation aerosol) 2 Puff(s) Inhalation Every 6 Hours as needed for Wheezing losartan (losartan 100 mg oral tablet) 1 Tablet(s) Oral Every Day metFORMIN (metFORMIN 500 mg oral tablet) 1 Tablet(s) Oral Every Day methocarbamol (methocarbamol 500 mg oral tablet) 1 Tablet(s) Oral Three Times A Day as needed for pain metoprolol (Metoprolol Succinate ER 25 mg oral tablet, extended release) 1 Tablet(s) Oral Every Day omeprazole (omeprazole 40 mg oral delayed release capsule) 1 Capsule(s) Oral Every Day before a meal alfuzosin (alfuzosin 10 mg oral tablet, extended release) 1 Tablet(s) Oral Every Day hydroCHLOROthiazide (hydroCHLOROthiazide 12.5 mg oral capsule) Oral Every Day levothyroxine (levothyroxine 75 mcg (0.075 mg) oral tablet) 1 Tablet(s) Oral Every Day ondansetron (ondansetron 4 mg oral tablet) 1 Tablet(s) Oral Every 8 Hours as needed for Nausea Pharmacy Information [facility]: [address] [facility] [address] [place], [place] [id number] [phone] Take your medications faithfully. Do NOT skip medication. Do NOT stop taking medications without the direction of a physician. Carry a list of your medications with you at all times, and take this medication list with you to your first follow up visit. Report any side effects. Avoid herbal remedies unless discussed with your physician. As part of your treatment plan, your physician may have prescribed a limited course of a controlled substance. This medication may be given to help people with moderate or severe pain or for other medical conditions, but there are risks involved with treatment. Common side effects may include nausea, constipation, drowsiness, sweating, itching, dry mouth, and rash. More serious side effects may include cognitive and motor impairment, like problems with thinking, concentrating, alertness, and movement (e.g. slowed reflexes), and driving and operating heavy machinery can be dangerous. It is important for you to talk to your physician if you have these side effects or questions. These controlled substances can produce physical dependence and be habit-forming if taken for an extended period of time, which means that the body has gotten used to them and may experience withdrawal symptoms if they are abruptly stopped. Withdrawal symptoms can include runny nose, sweating, goose bumps, diarrhea, abdominal cramping, rapid heartbeat, difficulty sleeping, and nervousness. Please dispose of unused and medications per your retail pharmacy guidance. Allergies Dilaudid (Anaphylaxis) penicillin sulfa drugs Immunizations This Visit No Immunizations Found Education Materials General Headache Without Cause A headache is [...] with your condition: Managing pain ??? Take tngv-zqu-xxbskpt and prescription medicines only as told by your health care provider. ??? Lie down in a dark, quiet room when you have a headache. ??? If directed, put ice on your head and neck area: ? Put ice in a plastic bag. ? Place a towel between your skin and the bag. ? Leave the ice on for 20 minutes, 2???3 times per day. ??? If directed, apply heat to the affected area. Use the heat source that your health care provider recommends, such as a moist heat pack or a heating pad. ? Place a towel between your skin and the heat source. ? Leave the heat on for 20???30 minutes. ? Remove the heat if your [...] Limit how much you use to: ? 0???1 drink a day for women. ? 0???2 drinks a day for men. ? Be aware of how much alcohol is in your drink. In the [place] one drink equals one 12 oz bottle of beer (355 mL), one 5 oz glass of wine (148 mL), or one 1?? oz glass of hard liquor (44 mL). [...] ??? Sleep on a regular schedule. Get 7???9 hours of sleep each night, or the [...] provider. Document Revised: 01/02/2019 Document Reviewed: 01/02/2019 Screen Patient Education ?? 2020 [employer]. acetaminophen, butalbital, and caffeine (a SEET a MIN sophia fen, justina davies, and URI de la rosa) Capacet, Esgic, Fioricet, Margesic, Medigesic, Orbivan, Repan, Vanatol LQ, Zebutal What is the most important information I should know about acetaminophen, butalbital, and caffeine? You should not use this medicine if you have porphyria, or if you have recently used alcohol, sedatives, tranquilizers, or other narcotic medications. Do not use this medicine if you have taken an MAO inhibitor in the past 14 days. A dangerous drug interaction could occur. MAO inhibitors include isocarboxazid, linezolid, phenelzine, rasagiline, selegiline, and tranylcypromine. Do not take more of this medication than is recommended. An overdose of acetaminophen can damage your liver or cause . Call your doctor at once if you have nausea, pain in your upper stomach, itching, loss of appetite, dark urine, dave-colored stools, or jaundice (yellowing of your skin or eyes). In rare cases, acetaminophen may cause a severe skin reaction. Stop taking this medicine and call your doctor right away if you have skin redness or a rash that spreads and causes blistering and peeling. What is acetaminophen, butalbital, and caffeine? Acetaminophen is a pain reliever and fever supervisor fireworks assembly. Butalbital is in a group of drugs called barbiturates. It relaxes muscle contractions involved in a tension headache. Caffeine is a central nervous system stimulant. It relaxes muscle contractions in blood vessels to improve blood flow. Acetaminophen, butalbital, and caffeine is a combination medicine used to treat tension headaches that are caused by muscle contractions. Acetaminophen, butalbital, and caffeine may also be used for purposes not listed in this medication guide. What should I discuss with my healthcare provider before taking acetaminophen, butalbital, and caffeine? Do not use this medicine if you have taken an MAO inhibitor in the past 14 days. A dangerous drug interaction could occur. MAO inhibitors include isocarboxazid, linezolid, phenelzine, rasagiline, selegiline, and tranylcypromine. You should not use acetaminophen, butalbital, and caffeine if you are allergic to it, if you have porphyria, or if you have recently used alcohol, sedatives, tranquilizers, or other narcotic medications. To make sure acetaminophen, butalbital, and caffeine is safe for you, tell your doctor if you have: ?? liver disease, cirrhosis, a history of alcoholism or drug addiction, or if you drink more than 3 alcoholic beverages per day; ?? kidney disease; ?? asthma, sleep apnea, or other breathing disorder; ?? stomach ulcer or bleeding; ?? a history of skin rash caused by any medication; ?? a history of mental illness or suicidal thoughts; or ?? if you use medicine to prevent blood clots. It is not known whether this medicine will harm an unborn baby. If you use butalbital while you are , your baby could become dependent on the drug. This can cause life-threatening withdrawal symptoms in the baby after it is born. Babies born dependent on habit-forming medicine may need medical treatment for several weeks. Tell your doctor if you are or plan to become . This medicine can pass into breast milk and may harm a nursing baby. Tell your doctor if you are breast-feeding a baby. How should I take acetaminophen, butalbital, and caffeine? Follow all directions on your prescription label. Do not take more of this medication than recommended. An overdose can damage your liver or cause . Tell your doctor if the medicine seems to stop working as well in relieving your pain. Butalbital may be habit-forming. Never share this medicine with another person, especially someone with a history of drug abuse or addiction. Keep the medication in a place where others cannot get to it. Selling or giving away this medicine is against the law. Take the medicine with food or milk if it upsets your stomach. Store at room temperature away from moisture and heat. Keep track of the amount of medicine used from each new bottle. Butalbital is a drug of abuse and you should be aware if anyone is using your medicine improperly or without a prescription. What happens if I miss a dose? Since this medicine is used when needed, you may not be on a dosing schedule. If you are on a schedule, use the missed dose as soon as you remember. Skip the missed dose if it is almost time for your next scheduled dose. Do not use extra medicine to make up the missed dose. What happens if I overdose? Seek emergency medical attention or call the Poison Help line at . An overdose of acetaminophen, butalbital, and caffeine can be fatal. The first signs of an acetaminophen overdose include loss of appetite, nausea, vomiting, stomach pain, sweating, and confusion or weakness. Later symptoms may include pain in your upper stomach, dark urine, and yellowing of your skin or the whites of your eyes. Overdose symptoms may also include insomnia, restlessness, tremor, diarrhea, increased shallow breathing, uneven heartbeats, seizure (convulsions), or fainting. What should I avoid while taking acetaminophen, butalbital, and caffeine? This medication can cause side effects that may impair your thinking or reactions. Be careful if you drive or do anything that requires you to be awake and alert. Avoid drinking alcohol. It may increase your risk of liver damage while taking acetaminophen. Ask a doctor or pharmacist before using any other cold, allergy, pain, or sleep medication. Acetaminophen (sometimes abbreviated as APAP) is contained in many combination medicines. Taking certain products together can cause you to get too much acetaminophen which can lead to a fatal overdose. Check the label to see if a medicine contains acetaminophen or APAP. While you are taking this medication, avoid taking diet pills, caffeine pills, or other stimulants (such as ADHD medications) without your doctor's advice. What are the possible side effects of acetaminophen, butalbital, and caffeine? Get emergency medical help if you have signs of an allergic reaction: hives; difficulty breathing; swelling of your face, lips, tongue, or throat. In rare cases, acetaminophen may cause a severe skin reaction that can be fatal. This could occur even if you have taken acetaminophen in the past and had no reaction. Stop taking this medicine and call your doctor right away if you have skin redness or a rash that spreads and causes blistering and peeling. If you have this type of reaction, you should never again take any medicine that contains acetaminophen. Stop using this medicine and call your doctor at once if you have: ?? confusion, seizure (convulsions); ?? shortness of breath; ?? a light-headed feeling, like you might pass out; or ?? nausea, upper stomach pain, itching, loss of appetite, dark urine, dave-colored stools, jaundice (yellowing of the skin or eyes). Common side effects may include: ?? drowsiness, dizziness; ?? feeling anxious or restless; ?? drunk feeling; or ?? sleep problems (insomnia). This is not a complete list of side effects and others may occur. Call your doctor for medical advice about side effects. You may report side effects to FDA at 7-780-ZBJ-2551. What other drugs will affect acetaminophen, butalbital, and caffeine? Taking this medicine with other drugs that make you sleepy or slow your breathing can cause dangerous or life-threatening side effects. Ask your doctor before taking acetaminophen, butalbital, and caffeine with a sleeping pill, narcotic pain medicine, muscle relaxer, or medicine for anxiety, depression, or seizures. Other drugs may interact with acetaminophen, butalbital, and caffeine, including prescription and htnj-sfw-wdypdgj medicines, vitamins, and herbal products. Tell each of your health care providers about all medicines you use now and any medicine you start or stop using. Where can I get more information? Your pharmacist can provide more information about acetaminophen, butalbital, and caffeine. Remember, keep this and all other medicines out of the reach of children, never share your medicines with others, and use this medication only for the indication prescribed. Every effort has been made to ensure that the information provided by [employer] is accurate, up-to-date, and complete, but no guarantee is made to that effect. Drug information contained herein may be time sensitive. [employer] information has been compiled for use by healthcare practitioners and consumers in the [place] and therefore [employer] does not warrant that uses outside of the [place] are appropriate, unless specifically indicated otherwise. [employer]'s drug information does not endorse drugs, diagnose patients or recommend therapy. [employer] drug information is an informational resource designed to assist licensed healthcare practitioners in caring for their patients and/or to serve consumers viewing this service as a supplement to, and not a substitute for, the expertise, skill, knowledge and judgment of healthcare practitioners. The absence of a warning for a given drug or drug combination in no way should be construed to indicate that the drug or drug combination is safe, effective or appropriate for any given patient. [employer] does not assume any responsibility for any aspect of healthcare administered with the aid of information [employer] provides. The information contained herein is not intended to cover all possible uses, directions, precautions, warnings, drug interactions, allergic reactions, or adverse effects. If you have questions about the drugs you are taking, check with your doctor, nurse or pharmacist. Copyright 8205-5233 [employer] Version: 6.02. Revision Date: 07/22/2015. sucralfate (oral) (willy KHANH fate) Carafate What is the most important information I should know about sucralfate? The liquid form of sucralfate should never be injected through a needle into the body, or may occur. What is sucralfate? Sucralfate is used short-term (up to 8 weeks) to treat an active duodenal ulcer. Sucralfate works mainly in the lining of the stomach and is not highly absorbed into the body. This medicine adheres to ulcer sites and protects them from acids, enzymes, and bile salts. Sucralfate can heal an active ulcer, but it will not prevent future ulcers from occurring. Sucralfate may also be used for purposes not listed in this medication guide. What should I discuss with my healthcare provider before taking sucralfate? You should not use sucralfate if you are allergic to it. Tell your doctor if you have ever had: ?? diabetes; ?? kidney disease (or if you are on dialysis); or ?? trouble swallowing tablets. Older adults may be more sensitive to the effects of this medicine. Tell your doctor if you are or . Do not give this medicine to a child without medical advice. How should I take sucralfate? Follow all directions on your prescription label and read all medication guides or instruction sheets. Use the medicine exactly as directed. Take sucralfate on an empty stomach. Shake the oral suspension (liquid) before you measure a dose. Use the dosing syringe provided, or use a medicine dose-measuring device (not a kitchen spoon). If you are diabetic, check your blood sugar regularly. Your doctor may adjust your dose based on your blood sugar levels. The liquid from of this medicine should never be injected through a needle into the body, or may occur. Sucralfate oral suspension is to be taken only by mouth. It may take 2 to 8 weeks before you receive the full benefit of taking sucralfate. Use this medicine for the full prescribed length of time, even if your symptoms quickly improve. Your doctor may want you to keep taking sucralfate at a lower dose once your active ulcer has healed. Follow your doctor's dosing instructions very carefully. Store at room temperature away from moisture and heat. Do not allow the liquid medicine to freeze. What happens if I miss a dose? Take the medicine as soon as you can, but skip the missed dose if it is almost time for your next dose. Do not take two doses at one time. What happens if I overdose? Seek emergency medical attention or call the Poison Help line at . What should I avoid while taking sucralfate? Avoid taking any other medications within 2 hours before or after you take sucralfate. Sucralfate can make it harder for your body to absorb other medications you take by mouth. Ask your doctor before using an antacid, and use only the type your doctor recommends. Some antacids can make it harder for sucralfate to work in your stomach. Avoid taking an antacid within 30 minutes before or after taking sucralfate. What are the possible side effects of sucralfate? Get emergency medical help if you have signs of an allergic reaction: hives; difficult breathing; swelling of your face, lips, tongue, or throat. Common side effects may include: ?? constipation, diarrhea; ?? nausea, vomiting, gas, indigestion; ?? itching, rash; ?? dizziness, drowsiness; ?? sleep problems (insomnia); ?? headache; or ?? back pain. This is not a complete list of side effects and others may occur. Call your doctor for medical advice about side effects. You may report side effects to FDA at 2-579-EUV-6146. What other drugs will affect sucralfate? Other drugs may affect sucralfate, including prescription and sphp-edj-ipurlti medicines, vitamins, and herbal products. Tell your doctor about all your current medicines and any medicine you start or stop using. Where can I get more information? Your pharmacist can provide more information about sucralfate. Remember, keep this and all other medicines out of the reach of children, never share your medicines with others, and use this medication only for the indication prescribed. Every effort has been made to ensure that the information provided by [employer] is accurate, up-to-date, and complete, but no guarantee is made to that effect. Drug information contained herein may be time sensitive. [employer] information has been compiled for use by healthcare practitioners and consumers in the [place] and therefore [employer] does not warrant that uses outside of the [place] are appropriate, unless specifically indicated otherwise. [employer] drug information does not endorse drugs, diagnose patients or recommend therapy. [employer] drug information is an informational resource designed to assist licensed healthcare practitioners in caring for their patients and/or to serve consumers viewing this service as a supplement to, and not a substitute for, the expertise, skill, knowledge and judgment of healthcare practitioners. The absence of a warning for a given drug or drug combination in no way should be construed to indicate that the drug or drug combination is safe, effective or appropriate for any given patient. [employer] does not assume any responsibility for any aspect of healthcare administered with the aid of information [employer] provides. The information contained herein is not intended to cover all possible uses, directions, precautions, warnings, drug interactions, allergic reactions, or adverse effects. If you have questions about the drugs you are taking, check with your doctor, nurse or pharmacist. Copyright [id number] [employer] Version: 03.28. Revision Date: 08/29/2020. atorvastatin (a TOR va sta tin) Lipitor What is the most important information I should know about atorvastatin? You should not take atorvastatin if you are or , or if you have liver disease. Tell your doctor about all your current medicines and any you start or stop using. Many drugs can interact, and some drugs should not be used together. Atorvastatin can cause the breakdown of muscle tissue, which can lead to kidney failure. Call your doctor right away if you have unexplained muscle pain, tenderness, or weakness especially if you also have fever, unusual tiredness, or dark urine. What is atorvastatin? Atorvastatin is used together with diet to lower blood levels of 'bad' cholesterol (low-density lipoprotein, or LDL), to increase levels of 'good' cholesterol (high-density lipoprotein, or HDL), and to lower triglycerides (a type of fat in the blood). Atorvastatin is used to treat high cholesterol, and to lower the risk of stroke, heart attack, or other heart complications in people with type 2 diabetes, coronary heart disease, or other risk factors. Atorvastatin is used in adults and children who are at least 10 years old. Atorvastatin may also be used for purposes not listed in this medication guide. What should I discuss with my healthcare provider before taking atorvastatin? You should not use atorvastatin if you are allergic to it, or if you have liver disease. Do not use if you are . This medicine can harm an unborn baby. Use effective control to prevent . Stop taking this medicine and tell your doctor at once if you become . Do not breastfeed while you are taking atorvastatin. Tell your doctor if you have ever had: ?? liver problems; ?? muscle pain or weakness; ?? kidney disease; ?? diabetes; ?? a thyroid disorder; or ?? if you drink more than 2 alcoholic beverages daily. Atorvastatin can cause the breakdown of muscle tissue, which can lead to kidney failure. This happens more often in women, in older adults, or people who have kidney disease or poorly controlled hypothyroidism (underactive thyroid). Atorvastatin is not approved for use by anyone younger than 10 years old. How should I take atorvastatin? Follow all directions on your prescription label and read all medication guides or instruction sheets. Your doctor may occasionally change your dose. Use the medicine exactly as directed. Take the medicine at the same time each day, with or without food. Do not break an atorvastatin tablet before taking it, unless your doctor has told you to. You may need to stop using atorvastatin for a short time if you have: ?? uncontrolled seizures; ?? an electrolyte imbalance (such as high or low potassium levels in your blood); ?? severely low blood pressure; ?? a severe infection or illness; or ?? surgery or a medical emergency. It may take up to 2 weeks before your cholesterol levels improve, and you may need frequent blood tests. Even if you have no symptoms, tests can help your doctor determine if this medicine is effective. Atorvastatin is only part of a complete treatment program that may also include diet, exercise, and weight control. Follow your doctor's instructions very closely. Store at room temperature away from moisture, heat, and light. What happens if I miss a dose? Use the medicine as soon as you can, but skip the missed dose if you are more than 12 hours late for the dose. Do not use two doses at one time. What happens if I overdose? Seek emergency medical attention or call the Poison Help line at . What should I avoid while taking atorvastatin? Avoid eating foods high in fat or cholesterol, or atorvastatin will not be as effective. Avoid drinking alcohol. It can raise triglyceride levels and may increase your risk of liver damage. Grapefruit may interact with atorvastatin and lead to unwanted side effects. Avoid drinking more than 1 liter of grapefruit juice while taking atorvastatin. What are the possible side effects of atorvastatin? Get emergency medical help if you have signs of an allergic reaction: hives; difficulty breathing; swelling of your face, lips, tongue, or throat. In rare cases, atorvastatin can cause a condition that results in the breakdown of skeletal muscle tissue, leading to kidney failure. Call your doctor right away if you have unexplained muscle pain, tenderness, or weakness especially if you also have fever, unusual tiredness, and dark colored urine. Also call your doctor at once if you have: ?? muscle weakness in your hips, shoulders, neck, and back; ?? trouble lifting your arms, trouble climbing or standing; ?? liver problems--upper stomach pain, weakness, tired feeling, loss of appetite, dark urine, jaundice (yellowing of the skin or eyes); or ?? kidney problems--little or no urinating, swelling in your feet or ankles, feeling tired or short of breath. Common side effects may include: ?? joint pain; ?? stuffy nose, sore throat; ?? diarrhea; or ?? pain in your arms or legs. This is not a complete list of side effects and others may occur. Call your doctor for medical advice about side effects. You may report side effects to FDA at 9-673-GAG-7965. What other drugs will affect atorvastatin? Certain other drugs can increase your risk of serious muscle problems, and it is very important that your doctor knows if you are using any of them. Tell your doctor about all your current medicines and any you start or stop using, especially: ?? other cholesterol-lowering medication; ?? antibiotic or antifungal medicine; ?? control pills; ?? medicine to prevent organ transplant rejection; ?? heart medication; or ?? medicine to treat hepatitis C or HIV. This list is not complete and many other drugs may affect atorvastatin. This includes prescription and [id number]-[id number]-[id number] medicines, vitamins, and herbal products. Not all possible drug interactions are listed here. Where can I get more information? Your pharmacist can provide more information about atorvastatin. Remember, keep this and all other medicines out of the reach of children, never share your medicines with others, and use this medication only for the indication prescribed. Every effort has been made to ensure that the information provided by [employer] is accurate, up-to-date, and complete, but no guarantee is made to that effect. Drug information contained herein may be time sensitive. [employer] information has been compiled for use by healthcare practitioners and consumers in the [place] and therefore [employer] does not warrant that uses outside of the [place] are appropriate, unless specifically indicated otherwise. [employer] drug information does not endorse drugs, diagnose patients or recommend therapy. [employer] drug information is an informational resource designed to assist licensed healthcare practitioners in caring for their patients and/or to serve consumers viewing this service as a supplement to, and not a substitute for, the expertise, skill, knowledge and judgment of healthcare practitioners. The absence of a warning for a given drug or drug combination in no way should be construed to indicate that the drug or drug combination is safe, effective or appropriate for any given patient. [facility] does not assume any responsibility for any aspect of healthcare administered with the aid of information [employer] provides. The information contained herein is not intended to cover all possible uses, directions, precautions, warnings, drug interactions, allergic reactions, or adverse effects. If you have questions about the drugs you are taking, check with your doctor, nurse or pharmacist. Copyright 7613-6763 [facility]. Version: 22.. Revision Date: 08/06/2020. Emergency Awareness and Preventative Care STROKE is an EMERGENCY Every Minute Counts Act FAST and Check for these signs: FACE Does the face look uneven? ARM Does one arm drift down? SPEECH Does their speech sound strange? TIME Call at any sign of stroke Stroke Risk Factors Atrial Fibrillation (irregular heartbeat) Diabetes Family history of stroke Heart Disease Heavy alcohol use High Blood Pressure High Cholesterol Physical inactivity and obesity Smoking Cigarette Smoking The facts are clear, cigarette smoking will shorten your life. Smoking can cause many illnesses along the way. As a healthcare provider, we recommend that you stop smoking. Assistance with quitting is available by contacting 0-118-KKQD-NOW. This is a free resource providing counseling, support, and referral. Or you may contact your personal physician. National Suicide Prevention Lifeline: The National Suicide Prevention Lifeline is a national network of local crisis centers that provides free and confidential emotional support to people in suicidal crisis or emotional distress 24 hours a day, 7 days a week. Don't Wait! Stop a Heart Attack Before it Starts What is a heart attack? A heart attack is damage or to a part of the heart from severely decreased or lack of blood flow to the heart. Over time, arteries can become narrow from the buildup of fat and cholesterol, which is called plaque. The plaque can rupture causing a blood clot to form. When the blood clot forms, the artery can become severely narrowed or completely blocked, causing a heart attack. Heart attack is the leading cause of in the [place]. 85% of muscle damage occurs within the first 2 hours. Delay in the recognition of heart attack symptoms increases the chances of . Know the early symptoms of a heart attack: Nausea Feeling of fullness in chest Jaw Pain Pain that travels down one or both arms Fatigue/being tired Anxiety Back Pain Chest pressure, squeezing, or discomfort Shortness of breath Sweating, or a cold sweat Feeling of impending doom There are unusual signs of a heart attack, too! Women, the elderly, and diabetics may present with atypical symptoms: Fainting/dizziness Weakness Confusion Risk Factors for a Heart Attack Some heart disease risk factors, such as age and family history, cannot be changed. Others, like smoking and lack of exercise, can be changed. Smoking High Cholesterol High Blood Pressure Family History Obesity Age Gender (Males are at higher risk) Lack of Exercise Diabetes Diet Stress Excessive Alcohol Intake If you or someone you know is experiencing the signs and symptoms of a heart attack, DON???T DELAY. Call immediately and seek help. If someone collapses, perform CPR! Do not attempt to drive if you are having symptoms of heart attack. Hands-Only CPR Why Hands-Only CPR? Hands-Only CPR has been shown to be as effective as conventional CPR for cardiac arrests that occur outside of a hospital. Survival depends on immediately receiving CPR from someone nearby. How do you perform Hands-Only CPR? There are two easy steps: Call if you see a teen or adult collapse Push hard and fast in the center of the chest at a beat of 100 beats per minute. Save a life! 4 WAYS TO GET AHEAD OF SEPSIS SEPSIS is a MEDICAL EMERGENCY. Time matters! Infections put you and your family at risk for a life-threatening condition called sepsis. Sepsis is the body's extreme response to an infection. It is life-threatening, and without timely treatment, sepsis can rapidly lead to tissue damage, organ failure, and . Sepsis happens when an infection you already have-in your skin, lungs, urinary tract or somewhere else-triggers a chain reaction throughout your body. 1 PREVENT INFECTIONS Take good care of chronic conditions. Talk to your doctor about getting the recommended vaccines. 2 PRACTICE GOOD HYGIENE Wash your hands frequently. Keep cuts or open sores clean and covered until they are healed. 3 KNOW THE SYMPTOMS Confusion or disorientation Shortness of breath High heart rate Fever, shivering, or feeling very cold Extreme pain or discomfort Clammy or sweaty skin 4 ACT FAST Get medical care IMMEDIATELY if you suspect sepsis or if you have an infection that is not getting better or is getting worse. To learn more about sepsis and how to prevent infections, visit www.cdc.gov/sepsis. Test Results Laboratory or Other Results This Visit (last charted value for your 10/29/2020 visit) Hematology 10/31/2020 6:36 AM WBC: 5.5 K/uL -- Normal range between ( 3.6 and 9.5 ) RBC: 4.48 Million/uL -- Normal range between ( 4.20 and 5.70 ) Hct: 40.2 % -- Normal range between ( 40.1 and 51.0 ) Hgb: 13.3 g/dL -- Normal range between ( 13.5 and 17.3 ) Platelet Count: 186 K/uL -- Normal range between ( 163 and 369 ) MCH: 29.7 pg -- Normal range between ( 25.6 and 32.2 ) MCHC: 33.1 Gram/dL -- Normal range between ( 32.2 and 36.5 ) MCV: 89.7 fL -- Normal range between ( 79.0 and 94.8 ) Slide Review: No Eos %: 1.8 % -- Normal range between ( 0.0 and 7.0 ) Griggs #: 0.41 K/uL -- Normal range between ( 0.16 and 1.00 ) Eos #: 0.10 x10(3)/uL -- Normal range between ( 0.00 and 0.80 ) Griggs %: 7.5 % -- Normal range between ( 3.0 and 9.0 ) Baso %: 0.9 % -- Normal range between ( 0.0 and 1.5 ) Baso #: 0.05 x10(3)/uL -- Normal range between ( 0.00 and 0.20 ) RDW: 12.7 % -- Normal range between ( 11.7 and 14.9 ) Neut %: 57.4 % -- Normal range between ( 34.0 and 71.0 ) Neut #: 3.15 K/uL -- Normal range between ( 1.56 and 6.13 ) Lymph %: 32.2 % -- Normal range between ( 19.3 and 53.1 ) Lymph #: 1.77 x10(3)/uL -- Normal range between ( 1.00 and 3.90 ) MPV: 9.7 fL -- Normal range between ( 9.4 and 12.4 ) IG#: 0.01 x10(3)/uL -- Normal range between ( 0.00 and 0.05 ) IG%: 0.20 % -- Normal range between ( 0.00 and 0.60 ) General Chemistry 10/31/2020 10:47 AM Glucose POC2: 106 mg/dL -- Normal range between ( 70 and 110 ) Device Comment 1: Device Comment 1 10/31/2020 6:36 AM Creatinine Level: 1.00 mg/dL -- Normal range between ( 0.70 and 1.30 ) Sodium Level: 141 mmol/L -- Normal range between ( 136 and 146 ) Potassium Level: 4.0 mmol/L -- Normal range between ( 3.5 and 5.1 ) Chloride Level: 108 mmol/L -- Normal range between ( 102 and 112 ) Carbon Dioxide Level: 31 mmol/L -- Normal range between ( 21 and 32 ) Anion Gap: 6 -- Normal range between ( 9 and 20 ) Bun/Creatinine: 15.0 -- Normal range between ( 8.0 and 20.0 ) Calcium Level: 8.9 mg/dL -- Normal range between ( 8.4 and 10.1 ) eGFR : >60 mL/min/1.73m2 eGFR NonAfrican: >60 mL/min/1.73m2 Glucose Level: 100 mg/dL -- Normal range between ( 74 and 106 ) Blood Urea Nitrogen: 15 mg/dL -- Normal range between ( 7 and 22 ) 10/29/2020 10:54 PM Bilirubin Total: 0.5 mg/dL -- Normal range between ( 0.2 and 1.2 ) A/G Ratio: 1.2 -- Normal range between ( 1.1 and 2.5 ) ALT: 25 Units/Liter -- Normal range between ( 16 and 61 ) AST: 12 Units/Liter -- Normal range between ( 5 and 37 ) Globulin: 3.1 Gram/dL -- Normal range between ( 1.5 and 4.5 ) Alk Phos: 78 Units/Liter -- Normal range between ( 27 and 136 ) Magnesium Level: 2.0 mg/dL -- Normal range between ( 1.5 and 2.4 ) Phosphorus: 2.8 mg/dL -- Normal range between ( 2.5 and 4.9 ) Protein Total: 6.9 Gram/dL -- Normal range between ( 6.4 and 8.2 ) Albumin Level: 3.8 Gram/dL -- Normal range between ( 3.4 and 5.0 ) Cardiac Specific Markers 10/29/2020 10:54 PM Troponin I Ultra: <0.015 ng/mL -- Normal range between ( 0.015 and 0.045 ) Coagulation 10/29/2020 10:54 PM INR: 1.0 -- Normal range between ( 0.9 and 1.2 ) PT: 10.7 Second(s) -- Normal range between ( 9.2 and 12.0 ) Diagnostic Radiology 10/31/2020 10:10 AM CR Hip Uni Comp Min 2 Vws RT: CR Hip Uni Comp Min 2 Vws RT Magnetic Resonance Imaging 10/30/2020 10:22 AM MRI Brain WO: MRI Brain WO Ultrasound 10/30/2020 10:04 AM US Aorta Ltd: US Aorta Ltd Echo 10/30/2020 7:24 AM EC Echo Complete: EC Echo Complete Patient Name:ADEN SRSHANNAN I have received and understand this information and was given the opportunity to ask questions. Patient/Respiratory Therapy Aide Name: Patient/Respiratory Therapy Aide Signature: Relationship to Patient: Clinician/Hospital Respiratory Therapy Aide Signature: Date: documented in this encounter Plan of Treatment Not on file documented as of this encounter Visit Diagnoses Not on filedocumented in this encounter
--- OUTSIDE RECORDS SUMMARY | 2024-12-13 13:47 | XMS_ITS | Encounter Summary ---
Author Organization [employer] Address [address] [place] [id number] Care Team Providers Care Dental Nurse Name Role Phone Unavailable Primary Care Provider Unavailabl e Encounter Details Date Type Department Care Team (Late st Contact Info) Description 10/31/2020 Transcribed Document [facility] Family Medicine [address] [place] [address] ProviderChristina MD [address] [place] [address] Social History Tobacco Use Types Packs/Day Years Used Date Smoking Tobacco: Never Assessed Sex and Gender Information Value Date Recorded Sex Assigned at Not on file Legal Sex Male 1:42 PM CDT Gender Identity Not on file Sexual Orientation Not on file documented as of this encounter Miscellaneous Notes * Cerner Conversion Note - Christina ProviderMD - 10/31/2020 11:35 AM CDT Stroke/Warfarin Instructions Entered On: 10/31/2020 11:35 EDT Performed On: 10/31/2020 11:35 EDT by Nivia Roman RN Stroke/Warfarin Instructions Stroke/TIA Discharge Ins : N/A Warfarin Discharge Ins : N/A Nivia Roman RN - 10/31/2020 11:35 EDT documented in this encounter Plan of Treatment Not on file documented as of this encounter Visit Diagnoses Not on filedocumented in this encounter
--- OUTSIDE RECORDS SUMMARY | 2024-12-13 13:47 | XMS_ITS | Encounter Summary ---
Author Organization [employer] Address [address] [place] [id number] Care Team Providers Care Broadband Engineer Name Role Phone Unavailable Primary Care Provider Unavailabl e Encounter Details Date Type Department Care Team (Late st Contact Info) Description 10/30/2020 Transcribed Document [facility] Family Medicine [address] [place] [address] ProviderChristina MD [address] [place] [address] Social History Tobacco Use Types Packs/Day Years Used Date Smoking Tobacco: Never Assessed Sex and Gender Information Value Date Recorded Sex Assigned at Not on file Legal Sex Male 1:42 PM CDT Gender Identity Not on file Sexual Orientation Not on file documented as of this encounter Miscellaneous Notes * Cerner Conversion Note - Christina ProviderMD - 10/30/2020 1:47 PM CDT UM Authorization Entered On: 10/30/2020 13:48 EDT Performed On: 10/30/2020 13:47 EDT by CATE KOHLER Beauty Parlor Cleaner Primary Insurance Authorization Authorization and Policy Numbers : Insurance 1 Health Plan: [employer] Policy Number: [id number] Authorization Number: Insurance 2 [facility] Policy Number: [id number] Authorization Number: Insurance Primary Name : [employer] Policy Number: [id number] Authorization Status-Primary : Opo status approv Authorized Service Begin Date-Primary : 10/29/2020 EDT Observation Authorization Nbr-Primary : [id number] Authorization Comments-Primary : Submitted for and obtained OBS approval from [facility] OBS auth# [id number] Historical Authorization Comments-Primary : No Authorization Comments Found CATE KOHLER, Beauty Parlor Cleaner - 10/30/2020 13:47 EDT documented in this encounter Plan of Treatment Not on file documented as of this encounter Visit Diagnoses Not on filedocumented in this encounter
--- OUTSIDE RECORDS SUMMARY | 2024-12-13 13:47 | XMS_ITS | Encounter Summary ---
Author Organization [employer] Address [address] [place] [address] Care Team Providers Care Rack Loader Name Role Phone Unavailable Primary Care Provider Unavailabl e Encounter Details Date Type Department Care Team (Late st Contact Info) Description 10/30/2020 Transcribed Document [facility] [place] [address] [place] [address] ProviderChristina MD [address], [place] [...] ProviderMD - 10/30/2020 2:03 AM CDT Evaluation, Physical Therapy Entered On: 10/30/2020 15:07 EDT Performed On: 10/30/2020 15:00 EDT by BALWINDER KWOK, PT General Information, PT Therapy Diagnosis, PT : impaired gait due to RLE pain, generalzied weakness and decreased balance Onset of Problem, PT : 10/29/2020 EDT Co-treated by, PT : Occupational Therapist General Information Comment, PT : Pt admitted with headaches, syncope (episodes brought on with head turns to the left), RLE and falls PMH: brain tumor s/p resection in , HTN, DM, recent c-diff, AAA BALWINDER KWOK, PT - 10/30/2020 16:28 EDT Visit Type, PT : Initial evaluation Patient Orders : Order Date Order Ordering 10/30/2020 02:03 PT Evaluation and Treatment Ordered By: AURORA ODEN DO Active Diagnoses : No Qualifying Diagnoses Admission Date : 10/29/2020 22:15 Personal Devices : Personal Devices No Devices Recorded Assistive Devices : Assistive Devices No Devices Recorded BALWINDER KWOK PT - 10/30/2020 15:07 EDT General Status Patient Received Status : Supine in bed Treatment Start Time : 10/30/2020 14:45 EDT Patient Left Status : Supine in bed, RN/PCT informed, Communication board completed, All needs met and within reach RN/PCT Informed Comment : GARY Gonzáles advised session ok to attempt Treatment End Time : 10/30/2020 15:00 EDT Treatment Time : 15 Minute(s) BALWINDER KWOK, PT - 10/30/2020 16:28 EDT History and Environment Living Situation, Therapy : Home Patient Lives With : Alone Persons Assisting Patient at Home : Alone Professional Skilled Services : None Persons Providing Information : Patient Home Equipment Therapy, PT : Other: walking stick, shower chair Home Setup : One story Stairs : Yes Stair Location(s) : Outside Outside Stairs, Number of Steps : 4 Railing Outside : Yes Outside Railing Position : Bilateral BALWINDER KWOK, PT - 10/30/2020 16:28 EDT Prior Level of Function PT GRID Prior LOF Ambulation, Household : Independent Prior LOF Ambulation, Community : Independent Prior LOF Bed Mobility : Independent Prior LOF Toileting : Independent Prior LOF Transfer : Independent BALWINDER KWOK PT - 10/30/2020 16:28 EDT Prior LOF Assist with ADL Comment : indep. ADLs, uses walking stick BALWINDER KWOK PT - 10/30/2020 16:28 EDT Intervention Summary BP Systolic Pre-intervention : 124 mmHg BP Diastolic Pre-intervention : 80 mmHg Therapist Assessment Pre-intervention : supine BP BP Systolic During Intervention : 160 mmHg BP Diastolic During Intervention : 111 mmHg Therapist Assessment During Intervention : EOB sitting BP taken again BALWINDER KWOK PT - 10/30/2020 16:28 EDT Upper Extremity Right UE Active ROM : WFL Right UE Strength : WFL Left UE Active ROM : WFL Left UE Strength : WFL BALWINDER KWOK PT - 10/30/2020 16:28 EDT Lower Extremity RLE Active ROM : WFL Right LE Strength : WFL LLE Active ROM : WFL Left LE Strength : WFL Lower Extremity Comment : R hip externally rotated at rest and with amb BALWINDER KWOK, PT - 10/30/2020 16:28 EDT Functional Mobility Mobility Grid Supine to Sit : Rehab Modified independence Sit to Stand : Supervision/set-up (Comment: gait belt [BALWINDER KWOK, PT - 10/30/2020 16:28 EDT] ) Bed to Chair : Rehab Minimal assistance (Comment: WHITESMITH with gait belt [BALWINDER KWOK, PT - 10/30/2020 16:28 EDT] ) Stand to Sit : Rehab Moderate assistance (Comment: to chair after becoming weak during amb, min A to sit on EOB after transfer from chair end of session [BALWINDER KWOK, PT - 10/30/2020 16:28 EDT] ) Sit to Supine : Rehab Modified independence BALWINDER KWOK, PT - 10/30/2020 16:28 EDT Supine to Sit Device : Rails Sit to Supine Devices : Rails BALWINDER KWOK, PT - 10/30/2020 16:28 EDT Gait Training/Assessment, PT Gait Assistance Level : Assist, minimal Walking Distance : 24 ft with close chair follow Ambulatory Devices : None, Gait belt Gait Deviations : Yes Right Lower Gait Deviation : Hip flexion, decreased, Knee flexion, decreased, Stance time, decreased Gait Training Comment : pt became weak and eyes started to deviate during last few feet of amb so pt assisted into chair for safety BALWINDER KWOK, PT - 10/30/2020 16:28 EDT Cognition Assessment, PT Orientation : Oriented x 4 Safety/Judgment Comment : intact Follows Basic Command Assessment : intact Attention Assessment : Present BALWINDER KWOK PT - 10/30/2020 16:28 EDT Edu Topics Physical Therapy Education Grid Balance Training : Returns demonstration, Needs further teaching Bed Mobility Training : Returns demonstration Gait Training : Returns demonstration, Needs further teaching Role of Physical Therapy : Verbalizes understanding Safety : Verbalizes understanding, Returns demonstration, Needs reinforcement Transfer Training : Returns demonstration, Needs reinforcement BALWINDER KWOK, PT - 10/30/2020 16:28 EDT Indication Assesessment, PT Physical Therapy Indicated : Yes PT Problem List : Impaired, activities daily living, Impaired, bed mobility, Impaired, endurance tolerance, Impaired, gait, Impaired, stair mobility, Impaired, standing balance, Impaired, strength, Impaired, transfers Potential Barriers To Therapy : Acuity of Illness Rehabilitation Potential : Fair BALWINDER KWOK, PT - 10/30/2020 16:28 EDT Plan of Care, PT PT Tx Plan/Goals Established w Patient : Yes PT Frequency Rehab : Five days per week PT Duration Rehab : Fourteen days PT Treatments Planned : Balance training, Bed mobility training, Gait training, Safety education, Stair training, Therapeutic exercises, Transfer training BALWINDER KWOK, PT - 10/30/2020 16:28 EDT Short Term Goals Ambulation STG Grid Goal #1 Device : Walker, front wheel Distance : 100 ft Assist : Assist, minimal Date to Meet : 11/06/2020 EDT Goal Status : Intial Goal BALWINDER KWOK, PT - 10/30/2020 16:28 EDT Assisted Goals Mobility/Bed Mobility LTG PT Grid Goal #1 Activity : Sit to stand Assist : Independent, modified Date to Meet : 11/13/2020 EDT Goal Status : Intial Goal BALWINDER KWOK, PT - 10/30/2020 16:28 EDT Ambulation LTG Grid Goal #1 Device : Cane, single point Distance : 300 ft Assist : Independent, modified Date to Meet : 11/13/2020 EDT Goal Status : Intial Goal BALWINDER KWOK, PT - 10/30/2020 16:28 EDT Treatment Note Subjective Comment : Pt agreeable to session. Assessment : Pt able to amb x 24 ft with min A, but then abruptly became weak and balance began to decline as well as pt's eyes beginning to deviate to the side. Pt quickly assisted to a chair and required mod A to sit safely. Pt's mobility is very limited at this time. He will benefit from continued PTx during LOS to improve safety and independence with functional mobility. Plan for Treatment : progress as tolerated. BALWINDER KWOK, PT - 10/30/2020 16:28 EDT Pain Assessment Pain Scaled Used : 0-10 Pain scale Pain Score Pre-Intervention : 5-6 Location : Headache, frontal, Neck, anterior, Neck, posterior Pain Comment : reports he had pain med that has helped some RISSA, ABLWINDER R, PT - 10/30/2020 16:28 EDT Image 1 - Images currently included in the form version of this document have not been included in the text rendition version of the form. Anticipated Discharge Needs, OT/PT Anticipated Discharge to : Unit, rehabilitation Recommend Continued Therapy at Discharge : Yes BALWINDER KWOK, PT - 10/30/2020 16:[address] [facility] PT Charges PT Eval Moderate Complexity : 1 BALWINDER KWOK, PT - 10/30/2020 16:28 EDT Electronically signed by Donald [facility] Conversion Brand Marketing Coordinator Cerner at 10/14/2022 11:44 AM CDT documented in this encounter Plan of Treatment Not on file documented as of this encounter Visit Diagnoses Not on filedocumented in this encounter
--- OUTSIDE RECORDS SUMMARY | 2024-12-13 13:47 | XMS_ITS | Encounter Summary ---
Author Organization Healthcare Address [address] [place] [address] Care Team Providers Care Document Control Clerk Name Role Phone Teo Dominguez MD Primary Care Provider + [phone] See Gann MD Unavailable [phone] Rufina Shrestha DDS Unavailable + Varinder Dey DMD Unavailable [phone] Encounter Details Date Type Department Care Team (Late st Contact Info) Description 02/08/2024 Orders Only External Location [address] [place] [address] Provider, External Social History Tobacco Use Types [...] Associated Diagnosis Comments CT OUTSIDE IMAGES 02/08/2024 2:12 PM EDT documented in this encounter Results * CT OUTSIDE IMAGES (02/08/2024 2:12 PM EDT) Anatomical Region Laterality Modality Computed Tomogra phy 02/08/2024 2:12 PM EDT us External Provider IMG CT [...] documented as of this encounter Care Teams Document Control Clerk Relationship Specialty Start Date End Date Teo Dominguez MD [address] [place] [address] PCP - General 11/08/20 See Gann MD [address] [place] [address] Surgeon Neurosurgery 01/07/21 Rufina Shrestha DDS [address] [place] [address] Dentist Dentist 08/19/22 Varinder Dey DMD [address] [place] [address] Dentist 08/19/22 documented as of this encounter
--- OUTSIDE RECORDS SUMMARY | 2024-12-13 13:47 | XMS_ITS | Encounter Summary ---
Author Organization [employer] Address [address] [place] [address] Care Team Providers Care Licensed Customs Broker Name Role Phone Unavailable Primary Care Provider Unavailabl e Encounter Details Date Type Department Care Team (Late st Contact Info) Description 10/31/2020 Transcribed Document [facility] [place] Family Medicine [address] [place] [address] ProviderChristina MD [address] [place] [address] Social History Tobacco Use Types Packs/Day Years Used Date Smoking Tobacco: Never Assessed Sex and Gender Information Value Date Recorded Sex Assigned at Not on file Legal Sex Male 1:42 PM CDT Gender Identity Not on file Sexual Orientation Not on file documented as of this encounter Miscellaneous Notes * [employer] Conversion Note - Historical ProviderMD - 10/31/2020 1:14 PM CDT Nursing Discharge Summary Entered On: 10/31/2020 13:15 EDT Performed On: 10/31/2020 13:14 EDT by Nivia Roman RN Discharge Documentation Discharge Date/Time : 10/31/2020 15:00 EDT Patient Disposition, General : Discharge Discharge To : Home with ambulatory/outpatient follow-up Mode Of Departure, General Discharge : Wheelchair Accompanied By, Discharge : Care provider IV Discontinued : Yes Personal Belongings With Patient : Yes Prescriptions Given to Patient : Yes Discharge Instructions Reviewed With, Opportunity For Questions Given : Patient, Care provider Patient Education Completed : Yes Teaching Method : Explanation, Printed materials Teaching Evaluation : Verbalizes understanding Nivia Roman RN - 10/31/2020 13:14 EDT Electronically signed by Donald [facility] Conversion Filing Clerk Cerner at 10/14/2022 11:30 AM CDT documented in this encounter Plan of Treatment Not on file documented as of this encounter Visit Diagnoses Not on filedocumented in this encounter
--- OUTSIDE RECORDS SUMMARY | 2024-12-13 13:47 | XMS_ITS | Encounter Summary ---
Author Organization Healthcare Address [address] [place] [address] Care Team Providers Care Processing Specialist Name Role Phone Teo Dominguez MD Primary Care Provider + [phone] See Gann MD Unavailable [phone] Rufina Shrestha DDS Unavailable + Varinder Dey DMD Unavailable [phone] Encounter Details Date Type Department Care Team (Late st Contact Info) Description 02/08/2024 Orders Only External Location [address] [place] [address] Provider, External Social History Tobacco Use Types [...] documented as of this encounter Care Teams Processing Specialist Relationship Specialty Start Date End Date Teo Dominguez MD [address] [place] [address] PCP - General 11/08/20 See Gann MD [address] [place] [address] Surgeon Neurosurgery 01/07/21 Rufina Shrestha DDS [address] [place] [address] Dentist Dentist 08/19/22 Varinder Dey DMD [address] [place] [address] Dentist 08/19/22 documented as of this encounter
== END 2024-12-13 23:59 | disposition home or self-care (01) ==
LOC: RAD 13:45
PROVIDERS: PCP Nurse Practitioner Family; Visit Provider Specialist
DX: M47.812 Spondylosis without myelopathy or radiculopathy, cervical region (principal); M43.22 Fusion of spine, cervical region; R51.9 Headache, unspecified; Z87.898 Personal history of other specified conditions
CPT/HCPCS: 72052

== ENCOUNTER → 2025-01-15 12:40 | Day surgery (SDC) | payer MEDICARE, OTHER, SELFPAY ==
--- NOTE | 2025-01-15 13:08 | SUR.PREOP ---
pt stated he was feeling off . VSS. FSBS was WNL at 105. Pt requested to be rescheduled to another time when he felt better , Endo room staff and GI office staff notified of pt's request to be rescheduled
[2025-01-15 13:15] LABS: POC Glucose,Bedside 105 (70-110)
== END ==
LOC: OUTP 12:40
PROVIDERS: PCP Nurse Practitioner Family; Visit Provider Internal Medicine Gastroenterology
PROC: 0DJ08ZZ Inspection of Upper Intestinal Tract, Via Natural or Artificial Opening Endoscopic (ICD-10-PCS; principal; 2025-01-15 14:00)
DX: E11.9 Type 2 diabetes mellitus without complications (principal)
CPT/HCPCS: 82962

== ENCOUNTER 2025-01-30 09:30 | Outpatient (CLI) | payer MEDICARE, OTHER, SELFPAY ==
--- OUTSIDE RECORDS SUMMARY | 2025-01-30 09:33 | XMS_ITS | Encounter Summary ---
Author Organization [employer] ([place], [place], [place], [place]) Address [address] [place] [address] Care Team Providers Care Television Schedule Coordinator Name Role Phone Unavailable Primary Care Provider Unavailabl e Encounter Details Date Type Department Care Team (Late st Contact Info) Description 10/30/[address] [facility] [place] [address] [place] [address] ProviderChristina MD [address] [place] [address] Social History Tobacco Use Types Packs/Day Years Used Date Smoking Tobacco: Never Assessed Sex and Gender Information Value Date Recorded Sex Assigned at Not on file Legal Sex Male 1:42 PM CDT Gender Identity Not on file Sexual Orientation Not on file documented as of this encounter Miscellaneous Notes * [employer] Conversion Note - Historical ProviderMD - 10/30/2020 1:38 PM CDT UM Authorization Entered On: 10/30/2020 13:38 EDT Performed On: 10/30/2020 13:38 EDT by Nasima Salgado Rn-Utilization Review Primary Insurance Authorization Authorization and Policy Numbers : Insurance 1 Health Plan: [employer] P[employer] Policy Number: [id number] Authorization Number: Insurance 2 Health Plan: [facility] Policy Number: [id number] Authorization Number: Insurance Primary Name : [employer] P[employer] Policy Number: [id number] Authorized Service Begin Date-Primary : 10/29/2020 EDT Historical Authorization Comments-Primary : No Authorization Comments Found Nasima Salgado Rn-Utilization Review - 10/30/2020 13:38 EDT documented in this encounter Plan of Treatment Not on file documented as of this encounter Visit Diagnoses Not on filedocumented in this encounter
--- OUTSIDE RECORDS SUMMARY | 2025-01-30 09:33 | XMS_ITS | Encounter Summary ---
Author Organization [employer] ([place], [place], [place], [place]) Address [address] [place] [address] Care Team Providers Care Certified Prosthetist/Orthotist Name Role Phone Unavailable Primary Care Provider Unavailabl e Encounter Details Date Type Department Care Team (Late st Contact Info) Description 10/30/2020 Transcribed Document [facility] [place] Family Medicine [address] [place] [address] ProviderChristina MD [address] [place] [address] Social History Tobacco Use Types [...] On: 10/30/2020 13:47 EDT by CATE KOHLER General Expeditor Primary Insurance Authorization Authorization and Policy Numbers : Insurance 1 Health Plan: [employer] PPO Policy Number: [id number] Authorization Number: Insurance 2 Health Plan: [facility] Policy Number: [id number] Authorization Number: Insurance Primary Name : [employer] PPO Policy Number: [id number] Authorization Status-Primary : Opo status approv Authorized Service Begin Date-Primary : 10/29/2020 EDT Observation Authorization Nbr-Primary : [id number] Authorization Comments-Primary : Submitted for and obtained OBS approval from [facility] OBS auth# [id number] Historical Authorization Comments-Primary : No Authorization Comments Found CATE KOHLER, General Expeditor - 10/30/2020 13:47 EDT documented in this encounter Plan of Treatment Not on file documented as of this encounter Visit Diagnoses Not on filedocumented in this encounter
--- OUTSIDE RECORDS SUMMARY | 2025-01-30 09:33 | XMS_ITS | Clinical Summary ---
Author Organization [employer] ([place], [place], [place]) Address [address] [place] [address] Care Team Providers Care Biztalk Consultant Name Role Phone Unavailable Primary Care [...]
--- OUTSIDE RECORDS SUMMARY | 2025-01-30 09:33 | XMS_ITS | Encounter Summary ---
Author Organization Healthcare Address [address] [place] [address] Care Team Providers Care Exterminator Helper Termite Name Role Phone Teo Dominguez MD Primary Care Provider + [phone] See Gann MD Unavailable [phone] Rufina Shrestha DDS Unavailable + Varinder Dey DMD Unavailable [phone] Encounter Details Date Type Department Care Team (Late st Contact Info) Description 02/08/2024 Orders Only External Location [address] [place] [address] Provider, External Social History Tobacco Use Types [...] documented as of this encounter Care Teams Exterminator Helper Termite Relationship Specialty Start Date End Date Teo Dominguez MD [address] [place] [address] PCP - General 11/08/20 See Gann MD [address] [place] [address] Surgeon Neurosurgery 01/07/21 Rufina Shrestha DDS [address] [place] [address] Dentist Dentist 08/19/22 Varinder Dey DMD [address] [place] [address] Dentist 08/19/22 documented as of this encounter
--- OUTSIDE RECORDS SUMMARY | 2025-01-30 09:33 | XMS_ITS | Encounter Summary ---
Author Organization Healthcare Address [address] [place] [address] Care Team Providers Care Top Precipitator Operator Name Role Phone Teo Dominguez MD Primary Care Provider + [phone] See Gann MD Unavailable [phone] Rufina Shrestha DDS Unavailable + Varinder Dey DMD Unavailable [phone] Encounter Details Date Type Department Care Team (Late st Contact Info) Description 12/12/2024 [facility] [address] [place] [address] Veronica Edmond MD [address] [place] [address] [place] [address] Social History Tobacco Use Types [...] documented as of this encounter Care Teams Top Precipitator Operator Relationship Specialty Start Date End Date Teo Dominguez MD [address] [place], [place] [id number] PCP - General 11/08/20 See Gann MD [address] [place] [address] Surgeon Neurosurgery 01/07/21 Rufina Shrestha DDS [address] [place] [address] Dentist Dentist 08/19/22 Vairnder Dey DMD [address] [place] [address] Dentist 08/19/22 documented as of this encounter
--- OUTSIDE RECORDS SUMMARY | 2025-01-30 09:33 | XMS_ITS | Encounter Summary ---
Author Organization [employer] ([place], [place], [place], [place]) Address [address] [place] [address] Care Team Providers Care Press Operator Instant Print Shop Name Role Phone Unavailable Primary Care Provider Unavailabl e Encounter Details Date Type Department Care Team (Late st Contact Info) Description 10/30/2020 Transcribed Document [facility] [place] Family Medicine [address] [place] [address] ProviderChristina MD [address] [place] [address] Social History Tobacco Use Types Packs/Day Years Used Date Smoking Tobacco: Never Assessed Sex and Gender Information Value Date Recorded Sex Assigned at Not on file Legal Sex Male 1:42 PM CDT Gender Identity Not on file Sexual Orientation Not on file documented as of this encounter Miscellaneous Notes * Cerner Conversion Note - Historical ProviderMD - 10/30/2020 2:03 AM CDT Evaluation, [...] Yes Outside Railing Position : Bilateral BALWINDER KWOK PT - 10/30/2020 16:28 EDT Prior Level [...] to Chair : Rehab Minimal assistance (Comment: BERRY PICKER with gait belt [BALWINDER KWOK, PT - [...] Sit to Supine Devices : Rails BALWINDER KWOK PT - 10/30/2020 16:28 EDT Gait Training/Assessment, [...] pt assisted into chair for safety BALWINDER KWOK PT - 10/30/2020 16:28 EDT Cognition Assessment, [...] Training : Returns demonstration, Needs reinforcement BALWINDER KWOK PT - 10/30/2020 16:28 EDT Indication Assesessment, [...] BALWINDER KWOK, PT - 10/30/2020 16:28 EDT Intermediate Goals Mobility/Bed Mobility LTG PT Grid Goal [...] had pain med that has helped some BALWINDER KWOK, PT - 10/30/2020 16:28 EDT Image 1 - Images currently included in the form version of this document have not been included in the text rendition version of the form. Anticipated Discharge Needs, OT/PT Anticipated Discharge to : Unit, rehabilitation Recommend Continued Therapy at Discharge : Yes BALWINDER KWOK PT - 10/30/2020 16:[address] [facility] PT Charges PT Eval Moderate Complexity : 1 BALWINDER KWOK, PT - 10/30/2020 16:28 EDT Electronically signed by Donald [facility] Conversion Practice Specialist Cerner at 10/14/2022 11:44 AM CDT documented in this encounter Plan of Treatment Not on file documented as of this encounter Visit Diagnoses Not on filedocumented in this encounter
--- OUTSIDE RECORDS SUMMARY | 2025-01-30 09:33 | XMS_ITS | Encounter Summary ---
Author Organization Healthcare Address [address] [place] [address] Care Team Providers Care Distribution Lineman Name Role Phone Teo Dominguez MD Primary Care Provider + [phone] See Gann MD Unavailable [phone] Rufina Shrestha DDS Unavailable + Varinder Dey DMD Unavailable [phone] Encounter Details Date Type Department Care Team (Late st Contact Info) Description 02/08/2024 Orders Only External Location [address] [place] [address] Provider, External Social History Tobacco Use Types [...] documented as of this encounter Care Teams Distribution Lineman Relationship Specialty Start Date End Date Teo Dominguez MD [address] [place] [address] PCP - General 11/08/20 See Gann MD [address] [place] [address] Surgeon Neurosurgery 01/07/21 Rufina Shrestha DDS [address] [place] [address] Dentist Dentist 08/19/22 Varinder Dey DMD [address] [place] [address] Dentist 08/19/22 documented as of this encounter
--- OUTSIDE RECORDS SUMMARY | 2025-01-30 09:33 | XMS_ITS | Encounter Summary ---
Author Organization [employer] ([place], [place], [place], [place]) Address [address] [place] [address] Care Team Providers Care Urban And Regional Planner Name Role Phone Unavailable Primary Care Provider Unavailabl e Encounter Details Date Type Department Care Team (Late st Contact Info) Description 10/31/2020 Transcribed Document [facility] [place] Family Medicine [address] [place] [address] ProviderChristina MD [address] [place] [address] Social History Tobacco Use Types Packs/Day Years Used Date Smoking Tobacco: Never Assessed Sex and Gender Information Value Date Recorded Sex Assigned at Not on file Legal Sex Male 1:42 PM CDT Gender Identity Not on file Sexual Orientation Not on file documented as of this encounter Miscellaneous Notes * Cerner Conversion Note - Christina ProviderMD - 10/31/2020 1:14 PM CDT Nursing [...] Nivia Roman RN - 10/31/2020 13:14 EDT documented in this encounter Plan of Treatment Not on file documented as of this encounter Visit Diagnoses Not on filedocumented in this encounter
--- OUTSIDE RECORDS SUMMARY | 2025-01-30 09:33 | XMS_ITS | Encounter Summary ---
Author Organization [employer] ([place], [place], [place], [place]) Address [address] [place] [address] Care Team Providers Care Outboard Motors Experimental Mechanic Name Role Phone Unavailable Primary Care Provider Unavailabl e Encounter Details Date Type Department Care Team (Late st Contact Info) Description 10/29/2020 Transcribed Document [facility] [place] [address] [place] [address] ProviderChristina MD [address] [place] [address] Social History Tobacco Use Types Packs/Day Years Used Date Smoking Tobacco: Never Assessed Sex and Gender Information Value Date Recorded Sex Assigned at Not on file Legal Sex Male 1:42 PM CDT Gender Identity Not on file Sexual Orientation Not on file documented as of this encounter Miscellaneous Notes * Cerner Conversion Note - Christina ProviderMD - 10/29/2020 11:44 PM CDT Pain [...]
--- OUTSIDE RECORDS SUMMARY | 2025-01-30 09:33 | XMS_ITS | Encounter Summary ---
Author Organization [employer] ([place], [place], [place], [place]) Address [address] [place] [address] Care Team Providers Care Editor In Chief Newspaper Name Role Phone Unavailable Primary Care Provider Unavailabl e Encounter Details Date Type Department Care Team (Late st Contact Info) Description 10/29/2020 Transcribed Document [facility] [place] [address] [place] [address] ProviderChristina MD [address] [place] [address] Social History Tobacco Use Types [...] #2 Relationship : n Primary Language : Ethiopian Communication Barrier : None Scrub Technician Needed : No GO CALL RN - [...] Level : 46 or > High Risk [place] Fall Interventions : Adequate lighting, Assistive devices [...] Source : Stated Height Entry Format : Kelliher Height, Feet : 5 ft(Converted to: 152 cm, 60 Inch) Height, Inches : 8 Inch(Converted to: 0 ft 8 Inch, 20.32 cm) Clinical Height : 172.72 cm Weight Source : Standing scale Weight Entry Format : Kelliher Clinical Dosing Weight : 95.45 kg Weight, Pounds : 210 lb Body Surface Area (BSA) : 2.09 m2 Body Mass Index : 32 kg/m2 (HI) Rewey Body Weight : 67 kg GO CALL [...] GO CALL RN - 10/29/2020 22:27 EDT [place] Suicide Severity Rating Scale (C-SSRS) CSSRS Past [...] - 10/29/2020 22:27 EDT Electronically signed by Donald [facility] Conversion Manager Life Insurance Cerner at 10/14/2022 11:43 AM CDT documented in this encounter Plan of Treatment Not on file documented as of this encounter Visit Diagnoses Not on filedocumented in this encounter
--- OUTSIDE RECORDS SUMMARY | 2025-01-30 09:33 | XMS_ITS | Encounter Summary ---
Author Organization [employer] ([place], [place], [place], [place]) Address [address] [place] [address] Care Team Providers Care Baseball Glove Shaper Name Role Phone Unavailable Primary Care Provider Unavailabl e Encounter Details Date Type Department Care Team (Late st Contact Info) Description 10/31/2020 Transcribed Document [facility] [place] Family Medicine [address] [place] [address] ProviderChristina MD [address] [id number] Social History Tobacco Use Types Packs/Day Years [...] Health Plan: [employer] PPO Policy Number: [id number] Authorization Number: Insurance 2 Health Plan: [facility] Policy Number: [id number] Authorization Number: Insurance Primary Name : [employer] PPO Policy Number: [id number] Authorization Status-Primary : Opo status approv Authorized Service Begin Date-Primary : 10/29/2020 EDT Observation Authorization Nbr-Primary : [id number] Historical Authorization Comments-Primary : Comment 1: Submitted for and obtained OBS approval from [facility] OBS auth# [id number] (CATE KOHLER, Location And Measurement Technician 10/30/2020 13:47) Nasima Salgado Rn-Utilization Review - 10/31/2020 9:22 EDT Electronically signed by [facility] Conversion [employer] Financials Consultant Cerner at 10/14/2022 11:25 AM CDT documented in this encounter Plan of Treatment Not on file documented as of this encounter Visit Diagnoses Not on filedocumented in this encounter
--- OUTSIDE RECORDS SUMMARY | 2025-01-30 09:33 | XMS_ITS | Encounter Summary ---
Author Organization [employer] ([place], [place], [place], [place]) Address [address] [place] [address] Care Team Providers Care Oil Field Equipment Mechanic Name Role Phone Unavailable Primary Care Provider Unavailabl e Encounter Details Date Type Department Care Team (Late st Contact Info) Description 10/29/2020 Transcribed Document [facility] [place] [facility] [place] [address] ProviderChristina MD [address], [place] [id number] Social History Tobacco Use Types Packs/Day Years [...] diff colitis in july who presented to [facility] on 10[facility]29 for evaluation of headache and [...] iv fluids and toradol and transferred to [facility] for further evaluation. Health Status [...] At risk for sleep apnea / IMO [id number] / Confirmed, Active Problems (1) At risk [...] facial droop. eomi, tongue protrudes midline. 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 hard of hearing. 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 documented in this encounter Plan of Treatment Not on file documented as of this encounter Visit Diagnoses Not on filedocumented in this encounter
--- OUTSIDE RECORDS SUMMARY | 2025-01-30 09:33 | XMS_ITS | Encounter Summary ---
Author Organization [employer] ([place], [place], [place], [place]) Address [address] [place] [address] Care Team Providers Care Glaze Handler Name Role Phone Unavailable Primary Care Provider Unavailabl e Encounter Details Date Type Department Care Team (Late st Contact Info) Description 10/31/2020 Transcribed Document [facility] [place] Family Medicine [address] [place] [address] ProviderChristina MD [address] [place] [address] Social History Tobacco Use Types [...] Jarvis MD - 10/31/2020 1:15 PM CDT [facility] [place] [address] SHANNAN SAMANIEGO SR :1955 Visit Time:10/29/2020 Your Visit Summary Your Care Team Admitting Physician - SHIVANI BERMUDEZ DO-INT Attending Physician - JEMIMA SALAZAR MD-FAM Primary [...] call for a follow up appointment with [facility] Neurology. Where: [address] [facility] [address] [place] [address]- Business (1) Medications What How Much When Instructions Next Dose acetaminophen/ butalbital/ caffeine (Fioricet oral capsule) 1 Capsule(s) Oral Every 6 Hours as needed for Headache Duration: 3 Day(s) Printed Prescription atorvastatin (atorvastatin 40 mg oral tablet) 1 Tablet(s) Oral Every Day Duration: 90 Day(s) Pickup at [facility] sucralfate (Carafate 1 g/ 10 mL oral suspension) 10 Milliliter(s) Oral Before Meals Pickup at [facility] LORazepam (LORazepam 0.5 mg oral [...] Hours as needed for Nausea Pharmacy Information [facility]: [address] [place], [place] [phone] Take your medications faithfully. Do NOT skip [...] with your condition: Managing pain ??? Take uvnm-bek-lpldflv and prescription medicines only as told by [...] provider. Document Revised: 01/02/2019 Document Reviewed: 01/02/2019 [employer] Patient Education ?? 2020 [facility]. acetaminophen, butalbital, and caffeine (a SEET a MIN oh fen, justina collado samson, and URI de la rosa) Capacet, Esgic, [...] Acetaminophen is a pain reliever and fever chief analytics officer. Butalbital is in a group of drugs [...] may report side effects to FDA at 4-667-TWM-7115. What other drugs will affect acetaminophen, butalbital, [...] acetaminophen, butalbital, and caffeine, including prescription and gzuq-sui-wftymfx medicines, vitamins, and herbal products. Tell each [...] to ensure that the information provided by [employer]. ('[employer]') is accurate, up-to-date, and complete, but no guarantee is made to that effect. Drug information contained herein may be time sensitive. [employer] information has been compiled for use by healthcare practitioners and consumers in the [place] and therefore [employer] does not warrant that uses outside of the [place] are appropriate, unless specifically indicated otherwise. [employer] drug information does not endorse drugs, diagnose patients or recommend therapy. [employer] drug information is an informational resource designed [...] effective or appropriate for any given patient. [employer] does not assume any responsibility for any aspect of healthcare administered with the aid of information [employer] provides. The information contained herein is not intended to cover all possible uses, directions, precautions, warnings, drug interactions, allergic reactions, or adverse effects. If you have questions about the drugs you are taking, check with your doctor, nurse or pharmacist. Copyright 9847-6191 [employer]. Version: 6.02. Revision Date: 07/22/2015. sucralfate (oral) [...] may report side effects to FDA at 3-106-WMT-4228. What other drugs will affect sucralfate? Other drugs may affect sucralfate, including prescription and kdwn-lij-dfbtzvg medicines, vitamins, and herbal products. Tell your [...] to ensure that the information provided by [employer]. ('[employer]') is accurate, up-to-date, and complete, but no guarantee is made to that effect. Drug information contained herein may be time sensitive. [employer] information has been compiled for use by healthcare practitioners and consumers in the [place] and therefore [employer] does not warrant that uses outside of the [place] are appropriate, unless specifically indicated otherwise. [employer] drug information does not endorse drugs, diagnose patients or recommend therapy. [employer] drug information is an informational resource designed [...] effective or appropriate for any given patient. [employer] does not assume any responsibility for any aspect of healthcare administered with the aid of information [employer] provides. The information contained herein is not intended to cover all possible uses, directions, precautions, warnings, drug interactions, allergic reactions, or adverse effects. If you have questions about the drugs you are taking, check with your doctor, nurse or pharmacist. Copyright 2255-3994 [facility] [employer]. Version: 03.28. Revision Date: 08/29/2020. atorvastatin (a [...] may report side effects to FDA at 9-312-YUY-7000. What other drugs will affect atorvastatin? Certain [...] may affect atorvastatin. This includes prescription and emyl-xyw-nqkrkom medicines, vitamins, and herbal products. Not all [...] to ensure that the information provided by [employer]. ('[employer]') is accurate, up-to-date, and complete, but no guarantee is made to that effect. Drug information contained herein may be time sensitive. [employer] information has been compiled for use by healthcare practitioners and consumers in the [place] and therefore [employer] does not warrant that uses outside of the [place] are appropriate, unless specifically indicated otherwise. [employer]'s drug information does not endorse drugs, diagnose patients or recommend therapy. [employer] drug information is an informational resource designed [...] effective or appropriate for any given patient. [employer] does not assume any responsibility for any aspect of healthcare administered with the aid of information [employer] provides. The information contained herein is not intended to cover all possible uses, directions, precautions, warnings, drug interactions, allergic reactions, or adverse effects. If you have questions about the drugs you are taking, check with your doctor, nurse or pharmacist. Copyright 5032-0817 [employer]. Version: 22.02. Revision Date: 08/06/2020. Emergency Awareness and Preventative [...] Assistance with quitting is available by contacting 5-692-VYFJ-NOW. This is a free resource providing counseling, [...] range between ( 0.0 and 7.0 ) Haywood #: 0.41 K/uL -- Normal range between ( 0.16 and 1.00 ) Eos #: 0.10 x10(3)/uL -- Normal range between ( 0.00 and 0.80 ) Haywood %: 7.5 % -- Normal range between [...] was given the opportunity to ask questions. Patient/High Risk Ob Name: Patient/High Risk Ob Signature: Relationship to Patient: Clinician/Hospital High Risk Ob Signature: Date: Electronically signed by Donald, Asad Conversion Director Market Intelligence Kamilahner at 10/14/2022 11:33 AM CDT documented in this encounter Plan of Treatment Not on file documented as of this encounter Visit Diagnoses Not on filedocumented in this encounter
--- OUTSIDE RECORDS SUMMARY | 2025-01-30 09:33 | XMS_ITS | Encounter Summary ---
Author Organization [employer] ([place], [place], [place], [place]) Address [address] [place] [address] Care Team Providers Care Heel Compressor Name Role Phone Unavailable Primary Care Provider Unavailabl e Encounter Details Date Type Department Care Team (Late st Contact Info) Description 10/30/2020 Transcribed Document [facility] [place] Family Medicine [address] [place] [address] ProviderChristina MD [address] [place], [place] [phone] Social History Tobacco Use Types Packs/Day Years [...] room Neurodiagnostic Event Details : Procedure completed CARLOAT MORLEY Neurodiagnostic Tech - 10/30/2020 13:16 EDT documented in this encounter Plan of Treatment Not on file documented as of this encounter Visit Diagnoses Not on filedocumented in this encounter
--- OUTSIDE RECORDS SUMMARY | 2025-01-30 09:33 | XMS_ITS | Encounter Summary ---
Author Organization [employer] ([place], [place], [place], [place]) Address [address] [place] [address] Care Team Providers Care Reservoir Engineer Name Role Phone Unavailable Primary Care Provider Unavailabl e Encounter Details Date Type Department Care Team (Late st Contact Info) Description 10/31/2020 Transcribed Document [facility] [place] [address] [place] [address] ProviderChristina MD [address] [place] [address] Social History Tobacco Use Types [...]
--- OUTSIDE RECORDS SUMMARY | 2025-01-30 09:33 | XMS_ITS | Encounter Summary ---
Author Organization [employer] ([place], [place], [place], [place]) Address [address] [place] [address] Care Team Providers Care Rn Orthopaedics Name Role Phone Unavailable Primary Care Provider Unavailabl e Encounter Details Date Type Department Care Team (Late st Contact Info) Description 10/31/2020 Transcribed Document [facility] [place] Family Medicine [address] [place] [address] ProviderChristina MD [address] [place] [address] Social History Tobacco Use Types [...] with your condition: Managing pain ??? Take kycn-vsz-xesidue and prescription medicines only as told by [...] provider. Document Revised: 01/02/2019 Document Reviewed: 01/02/2019 [employer] Patient Education ? 2020 [employer] documented in this encounter Plan of Treatment Not on file documented as of this encounter Visit Diagnoses Not on filedocumented in this encounter
--- OUTSIDE RECORDS SUMMARY | 2025-01-30 09:33 | XMS_ITS | Encounter Summary ---
Author Organization [employer] ([place], [place], [place], [place]) Address [address] [place] [address] Care Team Providers Care Beaming Inspector Name Role Phone Unavailable Primary Care Provider Unavailabl e Encounter Details Date Type Department Care Team (Late st Contact Info) Description 10/30/2020 Transcribed Document [facility] [place] [address] [place] [address] ProviderChristina MD [address] [place] [address] Social History Tobacco Use Types [...] Physician Covering for Consult : YUN HOUSTON MD-MYRON Date and Time Call Returned : 10/30/2020 [...]
--- OUTSIDE RECORDS SUMMARY | 2025-01-30 09:33 | XMS_ITS | Encounter Summary ---
Author Organization [employer] ([place], [place], [place], [place]) Address [address] [place] [address] Care Team Providers Care Continuous Wave Operator Name Role Phone Unavailable Primary Care Provider Unavailabl e Encounter Details Date Type Department Care Team (Late st Contact Info) Description 10/31/2020 Transcribed Document [facility] Family Medicine [address] [place] [address] ProviderChristina MD [address], [place] [id number] Social History Tobacco Use Types Packs/Day Years Used Date Smoking Tobacco: Never Assessed Sex and Gender Information Value Date Recorded Sex Assigned at Not on file Legal Sex Male 1:42 PM CDT Gender Identity Not on file Sexual Orientation Not on file documented as of this encounter Miscellaneous Notes * Cerner Conversion Note - Historical ProviderMD - 10/31/2020 4:28 PM CDT Discharge [...] PHYSICAL THERAPIST NON-EXEMPT - 10/31/2020 16:28 EDT Operations Tech Goals Mobility/Bed Mobility LTG PT Grid Goal [...]
--- OUTSIDE RECORDS SUMMARY | 2025-01-30 09:33 | XMS_ITS | Encounter Summary ---
Author Organization [employer] ([place], [place], [place], [place]) Address [address] [place] [address] Care Team Providers Care Faro Dealer Name Role Phone Unavailable Primary Care Provider Unavailabl e Encounter Details Date Type Department Care Team (Late st Contact Info) Description 10/31/2020 Transcribed Document [facility] [place] [address] [place] [address] ProviderChristina MD [address], [place] [phone] Social History Tobacco Use Types Packs/Day Years [...] On: 10/31/2020 13:45 EDT by PRIETO MILLS RN-Logistics Specialist Final Discharge Planning Discharge Arrangements : Patient [...] Management : Home/Residential/Long Term or Self Care -01 PRIETO MILLS RN-Logistics Specialist - 10/31/2020 13:45 EDT Final Narrative Note Final Narrative Note : Discharged to home, agreeable. No needs verbalized at this time. PRIETO MILLS RN-Logistics Specialist - 10/31/2020 13:45 EDT Electronically signed by Fred Bennett Conversion Railroad Car Cleaning Supervisor Cerner at 10/14/2022 11:26 AM CDT documented in this encounter Plan of Treatment Not on file documented as of this encounter Visit Diagnoses Not on filedocumented in this encounter
--- OUTSIDE RECORDS SUMMARY | 2025-01-30 09:33 | XMS_ITS | Encounter Summary ---
Author Organization Healthcare Address [address] [place] [address] Care Team Providers Care Director Of Development And Marketing Name Role Phone Teo Dominguez MD Primary Care Provider + [phone] See Gann MD Unavailable [phone] Rufina Shrestha DDS Unavailable + Varinder Dey DMD Unavailable [phone] Encounter Details Date Type Department Care Team (Late st Contact Info) Description 04/17/2024 Orders Only External Location [address] [place] [address] Provider, External Social History Tobacco Use Types [...] documented as of this encounter Care Teams Director Of Development And Marketing Relationship Specialty Start Date End Date Teo Dominguez MD [address] [place] [id number] PCP - General 11/08/20 See Gann MD [address] [place] [address] Surgeon Neurosurgery 01/07/21 Rufina Shrestha DDS [address] [place] [address] Dentist Dentist 08/19/22 Varinder Dey DMD [address] [place] [address] Dentist 08/19/22 documented as of this encounter
--- OUTSIDE RECORDS SUMMARY | 2025-01-30 09:33 | XMS_ITS | Encounter Summary ---
Author Organization Healthcare Address [address] [place] [address] Care Team Providers Care Stained Glass Glazier Helper Name Role Phone Teo Dominguez MD Primary Care Provider + [phone] See Gann MD Unavailable [phone] Rufina Shrestha DDS Unavailable + Varinder Dey DMD Unavailable [phone] Encounter Details Date Type Department Care Team (Late st Contact Info) Description 09/17/2024 Orders Only External Location [address] [place] [address] Provider, External Social History Tobacco Use Types [...] documented as of this encounter Care Teams Stained Glass Glazier Helper Relationship Specialty Start Date End Date Teo Dominguez MD [address] [place] [id number] PCP - General 11/08/20 See Gann MD [address] [place] [address] Surgeon Neurosurgery 01/07/21 Rufina Shrestha DDS [address] [place] [address] Dentist Dentist 08/19/22 Varinder Dey DMD [address] [place] [address] Dentist 08/19/22 documented as of this encounter
--- OUTSIDE RECORDS SUMMARY | 2025-01-30 09:33 | XMS_ITS | Encounter Summary ---
Author Organization [employer] ([place], [place], [place], [place]) Address [address] [place] [address] Care Team Providers Care Humidifier Maintenance Worker Name Role Phone Unavailable Primary Care Provider Unavailabl e Encounter Details Date Type Department Care Team (Late st Contact Info) Description 10/30/2020 Transcribed Document [facility] Medicine [address] [place] [address] ProviderChristina MD [address] [place] [address] Social History Tobacco Use Types [...] On: 10/30/2020 11:07 EDT by PRIETO MILLS RN-Slot Floorperson Initial Assessment I Previously Documented Living Environment [...] : n Enter Doctors Name : Teo Alberto Does Patient have PCP Listed? : Yes Legal Guardian : No Is Guardianship Needed : No PRIETO MILLS RN-Slot Floorperson - 10/30/2020 11:07 EDT Initial Assessment II Sensory and Motor Deficits : None Current Home Treatments and Equipment : None PRIETO MILLS RN-Slot Floorperson - 10/30/2020 11:07 EDT Discharge Needs I Anticipated Discharge Date : 10/31/2020 EDT Anticipated Discharge To, CM : Home with family care Current Home Treatment/Equipment : Current Home Treatment/Equipment No qualifying data available. Post Acute/Home Treatments : None Documentation Status Complete : Yes PRIETO MILLS RN-Slot Floorperson - 10/30/2020 11:07 EDT Discharge Needs II Professional Skilled Services : Professional Skilled Services No qualifying data available. Needs Assistance with Transportation : No PRIETO MILLS RN-Slot Floorperson - 10/30/2020 11:07 EDT Narrative Note Narrative Note : Received from outside facility to here due to headache, placed in observation. Neurology has been consulted. Met with Pt at the bedside. Role of CM explained. Pt states that he is ADL independent, lives home alone, but has his central african yeager (like my service dog). Plans are to return home when discharged. Pt states that he has bulging discs and wonders if these are causing his issues. No needs anticipated/verbalized at this time. RRS is low @ 31, boost 5. CM will follow. PRIETO MILLS RN-Slot Floorperson - 10/30/2020 11:07 EDT Electronically signed by Asad Bennett Conversion Older Adult Social Work Specialist Esdras at 10/14/2022 11:48 AM CDT documented in this encounter Plan of Treatment Not on file documented as of this encounter Visit Diagnoses Not on filedocumented in this encounter
--- OUTSIDE RECORDS SUMMARY | 2025-01-30 09:33 | XMS_ITS | Referral Summary ---
Author Organization [employer] ([place], [place], [place], [place]) Address [address] [place] [address] Care Team Providers Care Contract Driver Name Role Phone Unavailable Primary Care Provider [...]
--- OUTSIDE RECORDS SUMMARY | 2025-01-30 09:33 | XMS_ITS | Encounter Summary ---
Author Organization [employer] ([place], [place], [place], [place]) Address [address] [place] [address] Care Team Providers Care Delivery Department Supervisor Name Role Phone Unavailable Primary Care Provider Unavailabl e Encounter Details Date Type Department Care Team (Late st Contact Info) Description 10/30/2020 Transcribed Document [facility] [place] [address] [place] [address] ProviderChristina MD [address] [place] [address] Social History Tobacco Use Types [...] Health Plan: [employer] PPO Policy Number: [id number] Authorization Number: Insurance 2 Health Plan: [employer] [facility] Policy Number: [id number] Authorization Number: Historical Authorization Comments-Primary : No Authorization Comments Found Nasima Salgado Rn-Utilization Review - 10/30/2020 13:21 EDT documented in this encounter Plan of Treatment Not on file documented as of this encounter Visit Diagnoses Not on filedocumented in this encounter
--- OUTSIDE RECORDS SUMMARY | 2025-01-30 09:33 | XMS_ITS | Encounter Summary ---
Author Organization [employer] ([place], [place], [place], [place]) Address [address] [place] [address] Care Team Providers Care Supervisor Bakery Sanitation Name Role Phone Unavailable Primary Care Provider Unavailabl e Encounter Details Date Type Department Care Team (Late st Contact Info) Description 10/30/2020 Transcribed Document [facility] [place] [address] [place] [address] ProviderChristina MD [address] [place] [address] Social History Tobacco Use Types Packs/Day Years Used Date Smoking Tobacco: Never Assessed Sex and Gender Information Value Date Recorded Sex Assigned at Not on file Legal Sex Male 1:42 PM CDT Gender Identity Not on file Sexual Orientation Not on file documented as of this encounter Miscellaneous Notes * Cerner Conversion Note - Christina ProviderMD - 10/30/2020 12:24 PM CDT Discharge Instructions Entered On: 10/30/2020 12:25 EDT Performed On: 10/30/2020 12:24 EDT by YUN HOUSTON MD-NEU DC Instructions HWD Driving After Discharge : Do not drive, Other: No driving or operating heavy machinery until released by a physician. YUN HOUSTON MD-NEU - 10/30/2020 12:24 EDT Electronically signed by Donald [facility] Conversion Fruit Ii Farmworker Cerner at 10/14/2022 11:48 AM CDT documented in this encounter Plan of Treatment Not on file documented as of this encounter Visit Diagnoses Not on filedocumented in this encounter
--- OUTSIDE RECORDS SUMMARY | 2025-01-30 09:33 | XMS_ITS | Encounter Summary ---
Author Organization [employer] ([place], [place], [place], [place]) Address [address] [place] [address] Care Team Providers Care Medical Manager Name Role Phone Unavailable Primary Care Provider Unavailabl e Encounter Details Date Type Department Care Team (Late st Contact Info) Description 10/30/2020 Transcribed Document [facility] [place] [address] [place] [address] ProviderChristina MD [address] [place] [address] Social History Tobacco Use Types [...] mobility training, Safety education, Therapeutic activities KATHY STDODARD OTR/Gm - 10/30/2020 15:14 EDT Snf Goals, OT Grooming LTG Grid Goal #1 [...] KATHY STODDARD OTR/L - 10/30/2020 15:14 EDT documented in this encounter Plan of Treatment Not on file documented as of this encounter Visit Diagnoses Not on filedocumented in this encounter
--- OUTSIDE RECORDS SUMMARY | 2025-01-30 09:33 | XMS_ITS | Encounter Summary ---
Author Organization [employer] ([place], [place], [place], [place]) Address [address] [place] [address] Care Team Providers Care Water Plant Maintenance Mechanic Name Role Phone Unavailable Primary Care Provider Unavailabl e Encounter Details Date Type Department Care Team (Late st Contact Info) Description 10/30/2020 Transcribed Document [facility] [place] [facility] [place] [address] ProviderChristina MD [address] [place] [address] Social History Tobacco Use Types [...] hospital yesterday from the emergency room at [facility] for headaches and syncope, and I [...] the left. He decided to come to [facility] Emergency Room, where he was given [...] hydrocodone. SOCIAL HISTORY: The patient lives in [place] by himself, he . 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 He uses a [...] tongue, however, protrudes midline. Coordination shows intact tiuhfy-wh-zugl and dgfy-ip-ntli bilaterally. Gait was not tested. DIAGNOSTIC STUDIES: IMAGING STUDIES: He had a CTA of the head and neck at [facility] yesterday. The CTA of the head showed no large vessel occlusion. 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 The patient had a CTA of the neck that was normal. The patient had a CT scan of his head at [facility] that suggested calcification of the right [...] of the head and neck done at [facility]. I have asked the staff to [...] artery appeared diffusely small throughout its course. /[id number] MD MAR Kulkarni/AQ / MAR / MODL /[id number] documented in this encounter Plan of Treatment Not on file documented as of this encounter Visit Diagnoses Not on filedocumented in this encounter
--- OUTSIDE RECORDS SUMMARY | 2025-01-30 09:33 | XMS_ITS | Encounter Summary ---
Author Organization Healthcare Address [address] [place] [address] Care Team Providers Care Needle Bar Molder Name Role Phone Teo Dominguez MD Primary Care Provider + [phone] See Gann MD Unavailable [phone] Rufina Shrestha DDS Unavailable + Varinder Dey DMD Unavailable [phone] Encounter Details Date Type Department Care Team (Late st Contact Info) Description 09/17/2024 Orders Only External Location [address] [place] [address] Provider, External Social History Tobacco Use Types [...] documented as of this encounter Care Teams Needle Bar Molder Relationship Specialty Start Date End Date Teo Dominguez MD [address] [place] [address] [phone] PCP - General 11/08/20 See Gann MD [address] [place] [address] Surgeon Neurosurgery 01/07/21 Rufina Shrestha DDS [address] [place] [address] Dentist Dentist 08/19/22 Varinder Dey DMD [address] [place] [address] Dentist 08/19/22 documented as of this encounter
--- OUTSIDE RECORDS SUMMARY | 2025-01-30 09:33 | XMS_ITS | Encounter Summary ---
Author Organization Healthcare Address [address] [place] [address] Care Team Providers Care Senior Writer Name Role Phone Teo Dominguez MD Primary Care Provider [phone] See Gann MD Unavailable [phone] Rufina Shrestha DDS Unavailable + Varinder Dey DMD Unavailable [phone] Reason for Referral * Consultation (Routine) - Closed Specialty Diagnoses / Procedures Referred By Contac t Referred To Contact Neurosurgery Diagnoses Abnormal MRI, spine Mehlu Winston APRN [address] [place] [address] Phone: tel: fax: Referral ID Status Reason Start Date Expiration Date V isits Requested Visits Authorized [id number] Closed Specialty Services Required 12/05/2020 06/03/2021 1 1 Encounter Details Date Type Department Care Team (Late st Contact Info) Description 12/05/2020 Community [facility] Community Practice [address] [place] [address] Mehul Winston, FRONT LINE SUPERVISOR [address] [place] [address] Abnormal MRI, spine (Primary Dx) Social History [...] Primary documented in this encounter Care Teams Senior Writer Relationship Specialty Start Date End Date Teo Dominguez MD [address] [place] [address] [phone] PCP - General 11/08/20 See Gann MD [address] [place] [address] Surgeon Neurosurgery 01/07/21 Rufina Shrestha DDS [address] [place] [address] Dentist Dentist 08/19/22 Varinder Dey DMD [address] [place] [address] Dentist 08/19/22 documented as of this encounter
--- OUTSIDE RECORDS SUMMARY | 2025-01-30 09:33 | XMS_ITS | Clinical Summary ---
Author Organization [facility] Address [address] [place] [address] Care Team Providers Care Falafel Cart Cook Name Role Phone Teo Dominguez MD Primary Care Provider + [phone] See Gann MD Unavailable [phone] Rufina Shrestha DDS Unavailable + Varinder Dey DMD Unavailable [phone] Allergies Active Allergy Reactions Criticality Noted Date [...] tablet .COMPLEX 4 Active neomycin-polymyxin- dexamethamethasone (Polydex) 3.5-90453-7.1 ointment ophthalmic ointment 3 Active ondansetron ODT [...] Type Department Care Team Description 12/12/2024 Community [facility] Community Practice [address] [place] [address] Veronica Edmond MD from Last 3 Months Family History Medical History Relation Name Comments Conversions - Other Other Family h istory unknown Relation Name Status Comments Other Social History Tobacco Use Types Packs/Day Years Used Date Smoking Tobacco: Former Cigarettes 3 22 1 985 - 2006 Smokeless Tobacco: Never Tobacco Cessation:Counseling Given: Not [...] Health Maintenance Due Date Last Done Comments [facility]-Diabetes: Hemoglobin A1C 1955 [facility]-Hepatitis C Screening 1955 [facility]-Medicare Annual Wellness (AWV) 1955 [facility]-/Child/Adol SDOH Screenings 1953 Diabetes: Dental Exam 1963 [facility]- SDOH Screenings 1971 [facility]-Adult SDOH Screenings 1971 [facility]-DTaP,Tdap,and Td Vaccines (1 - Tdap) 1972 [facility]-Pneumococcal Vaccine: 50+ Years (1 of 2 - PCV) 1972 CT Colonography 1998 Colonoscopy 1998 FIT-DNA 1998 FIT 1998 FOBT 1998 Sigmoidoscopy 1998 [facility]-Colorectal Cancer Screening 1998 [facility]-Zoster Vaccines (1 of 2) 2003 [facility]-RSV Vaccine: 60+ Years or (1 - Risk 60-74 years 1-dose series) 2013 [facility]-Abdominal Aortic Aneurysm (AAA) Screening 2018 [id number] Vaccine (3 - Moderna risk series) 04/04/2021 03/07/2021, 02/07/2021 [facility]-Depression Screening 12/01/2022 12/01/2021, 06/0 11/2021 [facility]-Influenza Vaccine (#1) 02/26/202505/02, 04/17/2020, 07/07/2019, Additional history exists [facility]-Obesity Intervention Completed , 08/17/2022, 08/06/2022, Additional history exists HPV Vaccines Aged Out [...] this topic Medical Devices Implanted Type Area Motorboat Mechanic Inboard Device Identifier Shelf Expiration Date Model / Serial / Lot Eye Gold Weight Eye Gold Weight Right: Ear 16mm (Prox) X 20mm (Distal) X 146mm Total Covered, Endurant Ii Aaa Contralateral Limb Stent Graft Implanted:Qty: 1 on 12/22/2021 by Lan Gray MD at [facility] Stent 08/20/2023 [id number] / [id number] / [id number] Description:Ref#[id number] Endurant Iis Bifurcated [id number] - [id number] Implanted:Qty: 1 on 12/19/2021 by Lan Gray MD at [facility] N/A: Aorta Medtronic [facility]-[id number] 07/08/2023 [id number] / [id number] / [id number] Endurant Ii Contra Limb [id number] - [id number] Implanted:Qty: 1 on 12/19/2021 by Lan Gray MD at [facility] Right: Arterial [employer] [place]-[id number] 07/16/2023 [id number] / [id number] / [id number] Insurance [facility]ETNA [facility] MEDICAID [facility] MEDICARE Advance Directives * Full Code (Latest Code Status on File) Date Activated Date Inactivated Comments 12/19/2021 11:13 AM 12/21/2021 3:38 PM Question Answer Comments Patient has decision-making capacity? Yes Care Teams Falafel Cart Cook Relationship Specialty Start Date End Date Teo Dominguez MD [address] [place] [phone] PCP - General 11/08/20 See Gann MD [address] [place] [address] Surgeon Neurosurgery 01/07/21 Rufina Shrestha DDS [address] [place] [address] Dentist Dentist 08/19/22 Varinder Dey DMD [address] [place] [address] Dentist 08/19/22
--- OUTSIDE RECORDS SUMMARY | 2025-01-30 09:33 | XMS_ITS | Encounter Summary ---
Author Organization [employer] ([place], [place], [place], [place]) Address [address] [place] [address] Care Team Providers Care Stain Wiper Name Role Phone Unavailable Primary Care Provider Unavailabl e Encounter Details Date Type Department Care Team (Late st Contact Info) Description 10/30/2020 Transcribed Document [facility] [place] [address] [place] [address] ProviderChristina MD [address] [place] [address] Social History Tobacco Use Types [...] a seizure disorder. Clinical correlation is advised. /[id number] Zack Henderson MD WSB/AQ / WSB / MODL /[id number] Electronically signed by Donald, Asad Conversion Chief Of Safety And Protection Cerner at 10/14/2022 11:20 AM CDT documented in this encounter Plan of Treatment Not on file documented as of this encounter Visit Diagnoses Not on filedocumented in this encounter
--- OUTSIDE RECORDS SUMMARY | 2025-01-30 09:33 | XMS_ITS | Encounter Summary ---
Author Organization Healthcare Address [address] [place] [address] Care Team Providers Care Senior Financial Reporting Analyst Name Role Phone Teo Dominguez MD Primary Care Provider + [phone] See Gann MD Unavailable [phone] Rufina Shrestha DDS Unavailable + Varinder Dey DMD Unavailable [phone] Encounter Details Date Type Department Care Team (Late st Contact Info) Description 04/17/2024 Orders Only External Location [address] [place] [address] Mehul Calderon MD [address] [address] Social History Tobacco Use Types [...] documented as of this encounter Care Teams Senior Financial Reporting Analyst Relationship Specialty Start Date End Date Teo Dominguez MD [address] [place] [id number] PCP - General 11/08/20 See Gann MD [address] [place] [address] Surgeon Neurosurgery 01/07/21 Rufina Shrestha DDS [address] [place] [address] Dentist Dentist 08/19/22 Varinder Dey DMD [address] [place] [address] Dentist 08/19/22 documented as of this encounter
--- OUTSIDE RECORDS SUMMARY | 2025-01-30 09:33 | XMS_ITS | Encounter Summary ---
Author Organization Healthcare Address [address] [place] [address] Care Team Providers Care Mica Inspector Name Role Phone Teo Dominguez MD Primary Care Provider + [phone] See Gann MD Unavailable [phone] Rufina Shrestha DDS Unavailable + Varinder Dey DMD Unavailable [phone] Encounter Details Date Type Department Care Team (Late st Contact Info) Description 09/17/2024 Orders Only External Location [address] [place] [address] Provider, External Social History Tobacco Use Types [...] documented as of this encounter Care Teams Mica Inspector Relationship Specialty Start Date End Date Teo Dominguez MD [address] [place] [address] [phone] PCP - General 11/08/20 See Gann MD [address] [place] [address] Surgeon Neurosurgery 01/07/21 Rufina Shrestha DDS [address] [place] [address] Dentist Dentist 08/19/22 Varinder Dey DMD [address] [place] [address] Dentist 08/19/22 documented as of this encounter
--- OUTSIDE RECORDS SUMMARY | 2025-01-30 09:33 | XMS_ITS | Encounter Summary ---
Author Organization Healthcare Address [address] [place] [address] Care Team Providers Care Radio Sales Account Executive Name Role Phone Teo Dominguez MD Primary Care Provider + [phone] See Gann MD Unavailable [phone] Rufina Shrestha DDS Unavailable + Varinder Dey DMD Unavailable [phone] Encounter Details Date Type Department Care Team (Late st Contact Info) Description 02/08/2024 Orders Only External Location [address] [place] [address] Provider, External Social History Tobacco Use Types [...] documented as of this encounter Care Teams Radio Sales Account Executive Relationship Specialty Start Date End Date Teo Dominguez MD [address] [place] [address] PCP - General 11/08/20 See Gann MD [address] [place] [address] Surgeon Neurosurgery 01/07/21 Rufina Shrestha DDS [address] [place] [address] Dentist Dentist 08/19/22 Varinder Dey DMD [address] [place] [address] Dentist 08/19/22 documented as of this encounter
--- NOTE | 2025-01-30 10:00 | PC.NURSE ---
Patients BP 170/98 stated he had a headache and hasnt been feeling good since he woke up. Suggested he go to ER and patient agreed RT took patient to the ER at this time
== END 2025-01-30 23:59 | disposition home or self-care (01) ==
LOC: RT 09:30
PROVIDERS: PCP Nurse Practitioner Family; Visit Provider Internal Medicine Pulmonary Disease
DX: R69 Illness, unspecified (principal)

== ENCOUNTER 2025-01-30 09:59 | Emergency (ER) | payer MEDICARE, OTHER, SELFPAY ==
[2025-01-30] VITALS (9 sets, daily range): BP systolic 127–188; BP diastolic 60–98; PULSE 49–60; RESP 12–18; TEMP 36.7–36.8; O2SAT 93–98; BMI 31.9
--- NOTE | 2025-01-30 10:08 | ECG_ITS ---
APPROVED REPORT Exam: Resting ECG HR:51 bpm ECG Measurements Heart Rate 51 AXES NE 187 P 47 QRSd 99 QRS -23 QT 434 T 53 QTc 411 Conclusion SINUS BRADYCARDIA BORDERLINE LEFT AXIS DEVIATION [QRS AXIS < -20] BORDERLINE ECG UNCONFIRMED REPORT Sinus bradycardia. No ST elevations or depressions. No T wave inversions. QTc normal at 411 Electronically signed by : AI SMITH, 01/30/2025 13:04:01
--- NOTE | 2025-01-30 10:10 | [facility].EDGENADL ---
Discharge Plan Disposition Patient Disposition: Home, Self-Care Condition: Good Prescriptions Prescriptions: No Action aspirin 81 mg tablet,delayed release (DR/EC) 81 mg PO DAILY Qty: 60 3RF alfuzosin 10 mg tablet extended release 24 hr 10 mg PO DAILY ipratropium-albuterol 0.5 mg-3 mg(2.5 mg base)/3 mL solution for nebulization 3 ml inhalation Q6H PRN (Reason: shortness of breath or wheezing) Qty: 90 1RF polyethylene glycol 3350 [Miralax] 17 gram/dose powder 17 g PO BID Qty: 1020 11RF Citrucel Sugar Free Powder 1 tbsp PO BID Qty: 1191 11RF Rx Instructions: Mix with polyethylene glycol in 8 oz fluid twice daily nitroglycerin 0.4 mg tablet, sublingual 0.4 mg SL Q5M PRN (Reason: chest pain) Qty: 25 0RF Rx Instructions: do not exceed 3 doses per episode fluticasone propionate [Flonase Allergy Relief] 50 mcg/actuation spray,suspension 1 spray INTRANASAL DAILY Qty: 16 2RF Rx Instructions: administer into each nostril ondansetron HCl 4 mg tablet 4 mg PO Q8H Qty: 60 1RF levothyroxine 75 mcg tablet 37.5 mcg PO DAILY sildenafil (pulm.hypertension) 20 mg tablet See Rx Instructions .ROUTE .COMPLEX Qty: 30 4RF Dose Instruction: TAKE 1 TABLET DAILY NEEDED FOR SEXUAL ACTIVITY; ADMINISTER DOSES AT LEAST 4-6 HOURS APART Rx Instructions: TAKE 1 TABLET DAILY NEEDED FOR SEXUAL ACTIVITY; ADMINISTER DOSES AT LEAST 4-6 HOURS APART (DME) Accu-Chek Guide test strips Strip See Rx Instructions .ROUTE .COMPLEX Qty: 50 3RF Dose Instruction: TEST TWICE DAILY Rx Instructions: TEST TWICE DAILY methocarbamol 500 mg tablet See Rx Instructions .ROUTE .COMPLEX Qty: 30 0RF Dose Instruction: TAKE 1 TABLET BY MOUTH THREE TIMES DAILY NEEDED FOR MUSCLE RELAXER Rx Instructions: TAKE 1 TABLET BY MOUTH THREE TIMES DAILY NEEDED FOR MUSCLE RELAXER albuterol sulfate 90 mcg/actuation HFA aerosol inhaler 2 puff INHALATION Q4H Qty: 8.5 3RF hydrochlorothiazide 12.5 mg capsule See Rx Instructions .ROUTE .COMPLEX Qty: 90 3RF Dose Instruction: TAKE 1 CAPSULE BY MOUTH ONCE DAILY FOR FLUID Rx Instructions: TAKE 1 CAPSULE BY MOUTH ONCE DAILY FOR FLUID ranolazine 500 mg tablet extended release 12 hr See Rx Instructions .ROUTE .COMPLEX Qty: 180 1RF Dose Instruction: TAKE 1 TABLET BY MOUTH TWICE DAILY Rx Instructions: TAKE 1 TABLET BY MOUTH TWICE DAILY cetirizine 10 mg tablet See Rx Instructions .ROUTE .COMPLEX Qty: 90 2RF Dose Instruction: TAKE 1 TABLET BY MOUTH ONCE DAILY NEEDED FOR ALLERGY SYMPTOMS Rx Instructions: TAKE 1 TABLET BY MOUTH ONCE DAILY NEEDED FOR ALLERGY SYMPTOMS atorvastatin 40 mg tablet See Rx Instructions .ROUTE .COMPLEX Qty: 90 1RF Rx Instructions: TAKE ONE TABLET BY MOUTH EVERY NIGHT AT BEDTIME FOR CHOLESTEROL metformin 500 mg tablet See Rx Instructions .ROUTE .COMPLEX Qty: 90 3RF Dose Instruction: TAKE 1 TABLET BY MOUTH ONCE DAILY FOR SUGAR Rx Instructions: TAKE 1 TABLET BY MOUTH ONCE DAILY FOR SUGAR losartan 50 mg tablet See Rx Instructions .ROUTE .COMPLEX Qty: 30 11RF Dose Instruction: TAKE 1 TABLET BY MOUTH ONCE DAILY Rx Instructions: TAKE 1 TABLET BY MOUTH ONCE DAILY metoprolol succinate 25 mg tablet extended release 24 hr See Rx Instructions .ROUTE .COMPLEX Qty: 30 11RF Dose Instruction: TAKE 1 TABLET BY MOUTH ONCE DAILY Rx Instructions: TAKE 1 TABLET BY MOUTH ONCE DAILY omeprazole 40 mg capsule,delayed release(DR/EC) See Rx Instructions .ROUTE .COMPLEX Qty: 90 2RF Dose Instruction: TAKE 1 CAPSULE BY MOUTH ONCE DAILY FIRST THING IN MORNING BEFORE EATING ANY FOOD. Rx Instructions: TAKE 1 CAPSULE BY MOUTH ONCE DAILY FIRST THING IN MORNING BEFORE EATING ANY FOOD. Referrals Follow up/Referrals: Provider,Referral, [Primary Care Provider, Medical] - See instructions Phill Bradshaw MD [Referring, Vascular Surgery] - See instructions Activity Restrictions/Add. Instructions Additional Instructions/Restrictions: Please return to the emergency department with any worsening signs or symptoms, continue take all your medication as prescribed and keep all your appointments with your other specialist and primary care doctor. Clinical Impressions Clinical Impression: Atypical chest pain Chronic headaches Qualifiers: Headache type: post-traumatic Intractability: not intractable Qualified Code(s): G44.329 - Chronic post-traumatic headache, not intractable Hypertension Qualifiers: Hypertension type: primary hypertension Qualified Code(s): I10 - Essential (primary) hypertension Chronic pain Qualifiers: Chronic pain type: chronic pain syndrome Qualified Code(s): G89.4 - Chronic pain syndrome Instructions Patient Instructions: High Blood Pressure, DI for Atypical Chest Pain, DI for Chronic Pain -- Adult, DI for Headache Print Language Print Language: Turkish Discharge ED Provider: Vahid Mata General Adult HPI <LOUIE Gallardo - Last Filed: 01/30/25 12:44> General Chief complaint: Recheck/Abnormal Lab/Rx Stated complaint: BP high 197/100 Time Seen by Provider: 01/30/25 10:01 Mode of Arrival: Ambulatory Source of Information: Patient Description of Symptoms (Recalled from ER Triage Doc. by RN): pt reports high blood pressure. states he was sent over from a doctors office to have it evaluated. denies additiona symptoms History of Present Illness HPI narrative: 69 year old male presents to the emergency department with complaints of high blood pressure. He states that this morning he went to his loop puller where they took his blood pressure and advised him to go to the ED. He states he is currently on Metoprolol, Losartan, HCTZ and monitors his BP at home and it fluctuates between normal and high readings. He states he has a baseline of chest pain, SOB, dizziness, and headache. All of which are chronic for him, headache right now is currently 8 out of 10, and is somewhat chronic after his brain tumor , surgery 20 to 25 years ago, however this is data deficient. He states he currently is having sharp chest pain, that he currently rates a 2 out of 10, patient also endorses what sounds like coughing up multiple episodes of phlegm, patient describes it is sticky stuff , comes up every morning. Patient denies any diarrhea or constipation, no dysuria, no other urinary type symptomatology, no true abdominal pain, does admit to some nausea, no vomiting, patient has a history of abdominal aortic aneurysm which was surgically repaired, and an asceding aortic aneurysm which he has not seen a doctor for in years. Patient has a hx of [place] s/p cardiac stent placement. Patient has a significant past medical history of HTN, HLD, COPD, brain cancer, diabetes, hypothyroidism, CAD, keyes esopagus, BPH, GERD. Patient is a former smoker, denies any alcohol use, currently utilizes marijuana. Initial triage vitals are notable for 188/98, SpO2 within normal limits, no tachycardia, no tachypnea. Of note, patient took some antinausea medication this morning around 6 AM. Please note that above description of symptoms, in this electronic medical record under categorization of recalled from ER triage doctor by RN are reflective of an initial nursing assessment, however, is not reflective of my full history and physical exam that was personally taken and clarified. Consequentially, this preceding description of symptoms, which may include the patient's categorized chief complaint in the EMR, do not reflect my personal clinical impression, and the ultimate description of history of present illness and patient stated complaints should be deferred to this section of the note. Unless stated otherwise or congruent with this section of the note, additional signs, symptoms, or incongruence should be interpreted as inaccurate with my clinical impression. Onset (ago): unknown Related Data Home Medications ?Medication ?Instructions ?Recorded ?Confirmed alfuzosin 10 mg tablet,extended 10 mg PO DAILY Prostate/urinary 02/19/23 12/11/24 release 24 hr reten. levothyroxine 75 mcg tablet 37.5 mcg PO DAILY 12/11/24 Previous Rx's ?Medication ?Instructions ?Recorded aspirin 81 mg tablet,delayed 81 mg PO DAILY Heart health #60 06/23/21 release tabs nitroglycerin 0.4 mg sublingual 0.4 mg sublingual Q5M PRN chest 07/01/23 tablet pain #25 tabs sildenafil (pulm.hypertension) 20 See Rx Instructions .Route 10/06/23 mg tablet .COMPLEX #30 tabs blood sugar diagnostic (Accu-Chek #50 ea 10/25/23 Guide test strips) methocarbamol 500 mg tablet See Rx Instructions .Route 11/12/23 .COMPLEX #30 tabs fluticasone propionate 50 1 spray intranasal DAILY . #16 02/15/24 mcg/actuation nasal grams spray,suspension (Flonase Allergy Relief) albuterol sulfate 90 mcg/actuation 2 puff inhalation Q4H Asthma #8.5 03/20/24 aerosol inhaler grams ipratropium 0.5 mg-albuterol 3 mg 3 ml inhalation Q6H PRN shortness 03/21/24 (2.5 mg base)/3 mL nebulization of breath or wheezing #90 mL soln hydrochlorothiazide 12.5 mg capsule See Rx Instructions .Route 04/10/24 .COMPLEX #90 caps ondansetron HCl 4 mg tablet 4 mg PO Q8H #60 tabs 06/06/24 ranolazine 500 mg tablet,extended See Rx Instructions .Route 10/12/24 release,12 hr .COMPLEX #180 tabs cetirizine 10 mg tablet See Rx Instructions .Route 10/20/24 .COMPLEX #90 tabs atorvastatin 40 mg tablet See Rx Instructions .Route 10/24/24 .COMPLEX Cholesterol #90 tabs methylcellulose (laxative) 1 tbsp PO BID #1,191 grams 11/09/24 (Citrucel Sugar Free oral powder) polyethylene glycol 3350 17 17 g PO BID #1,020 grams 11/09/24 gram/dose oral powder (Miralax) metformin 500 mg tablet See Rx Instructions .Route 11/14/24 .COMPLEX #90 tabs losartan 50 mg tablet See Rx Instructions .Route 11/29/24 .COMPLEX #30 tabs metoprolol succinate 25 mg See Rx Instructions .Route 11/29/24 tablet,extended release 24 hr .COMPLEX #30 tabs omeprazole 40 mg capsule,delayed See Rx Instructions .Route 12/18/24 release .COMPLEX #90 caps Allergies Allergy/AdvReac Type Severity Reaction Status Date / Time hydromorphone (From Dilaudid) Allergy Severe Anaphylaxis Verified 12/11/24 10:38 latex (LATEX) Allergy Unknown Unknown Verified 12/11/24 10:38 allergy reaction Penicillins (PENICILLINS) Allergy Unknown Unknown Verified 12/11/24 10:38 allergy reaction Sulfa (Sulfonamide Allergy Unknown Unknown Verified 12/11/24 10:38 Antibiotics) (SULFA allergy (SULFONAMIDE ANTIBIOTICS)) reaction [facility] <LOUIE Gallardo - Last Filed: 01/30/25 12:44> [facility] Disclaimer: The information contained in this section may have been updated after the patient was seen, as this information can be updated by other users. 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 Angina pectoris GERD (gastroesophageal reflux disease) COVID-19 Diverticulitis Ex-smoker Typical angina Abnormal cardiovascular stress test PND (paroxysmal nocturnal dyspnea) CAD (coronary artery disease) Obesity (BMI 30-39.9) Gastritis Gout attack SOB (shortness of breath) Other forms of angina pectoris Hypothyroidism (~12/11/17) Ingrown right big toenail Ingrown left big toenail Foot pain Wrist pain Rib pain on left side Left radial head fracture Diabetes mellitus Hypertensive heart disease Hyperlipidemia Abdominal aortic aneurysm Aneurysm of ascending aorta Surgical History Hx of eye surgery Hx of brain surgery S/P AAA repair Stented coronary artery Family History Other Family history of cancer Family history of diabetes mellitus type II Family history of myocardial infarction Social History Smoking Status: Never smoker how long ago did patient quit smokin years second hand exposure: Yes alcohol intake: former counseling provided: none substance use type: marijuana current occupational status: retired Travel in the last 8 weeks?: None household members: other housing: house marital status: legally current occupational exposures/hazards: No caffeine: Yes physical activity: none do you feel safe at home: Yes victim of physical abuse: No victim of emotional abuse: No victim of sexual abuse: No Have you lived/traveled outside [place] in past 30 days?: No Contact w/someone who lives/traveled outside [place] past 30 days?: No Exposure to someone with infectious disease in past 14 days?: No Do you have a fever (greater than 100.4 F or 38 C)?: No Have you tested positive for COVID-19?: No Exposed to someone with COVID-19 in past 14 days?: No Do you have a sore throat?: No Do you have a cough?: No Do you have any weakness?: No Do you have any diarrhea?: No Are you experiencing any unusual bleeding?: No Do you have any muscle aches/pain?: No Do you have any abdominal pain?: No Are you experiencing loss of taste or smell?: No Other Medical History Have you received the Flu Vaccine for this season: No Have you received the Pneumonia Vaccine: No <LOUIE Gallardo - Last Filed: 01/30/25 12:44> ROS Obtained: Yes All systems reviewed & no additional complaints except as documented Physical Exam <LOUIE Gallardo - Last Filed: 01/30/25 12:44> General General appearance: alert and in no apparent distress Head Head exam: atraumatic and normocephalic Eye Eye exam: Present PERRL and EOMI ENT ENT exam: Present mucous membranes moist Neck Neck exam: Present normal inspection Chest Chest inspection: Present normal inspection and symmetric chest wall rise Respiratory Respiratory exam: Present normal lung sounds bilaterally; Absent respiratory distress, wheezes or stridor Cardiovascular Cardiovascular exam: Present normal rhythm and bradycardia Abdominal Exam Abdominal exam: Present soft; Absent tenderness, guarding, rebound or rigidity Extremities Exam Extremities exam: Present normal inspection Neurological Exam Neurological exam: Present alert, oriented X3 and other (Patient has right-sided facial droop that is chronic from his remote brain tumor surgery 20 years ago, otherwise GCS of 15, alert oriented x 3, extremities to command, no focal neurological deficit) Psychiatric Psychiatric exam: Present normal affect Skin Skin exam: Present warm and dry Medical Decision Making <LOUIE Gallardo - Last Filed: 01/30/25 12:44> Medical Records Medical records reviewed: Yes I reviewed the patient's medical records. Screening: Per USPSTF and CDC recommendations, given the prevalence of disease in our region, it is our hospital?s policy to screen for HIV and viral Hepatitis for all patients aged 18 and over and those with ongoing risk factors. Luis Felipe Inquiry Pt receiving controlled substance: Yes Luis Felipe was queried for this patient: No Reason not queried -: Emergent pt cond-no time Risks and benefits of using a controlled substance: were discussed with pt by me Vital Signs: 01/30/25 10:05 01/30/25 10:13 01/30/25 10:31 Temperature 98.3 F Temperature Source Oral Pulse Rate 56 L 54 L Pulse Rate [Right] 60 Respiratory Rate 18 15 12 Blood Pressure 157/97 H 174/98 H Blood Pressure [Right Arm] 188/98 H Blood Pressure Mean [Right Arm] 128 Blood Pressure Source Blood Pressure Position 02 Sat by Pulse Oximetry 98 97 96 Oxygen Delivery Method Room Air 01/30/25 10:46 01/30/25 11:00 01/30/25 11:30 Temperature Temperature Source Pulse Rate 56 L 60 52 L Pulse Rate [Right] Respiratory Rate 14 13 12 Blood Pressure 164/96 H 148/80 H 141/72 H Blood Pressure [Right Arm] Blood Pressure Mean [Right Arm] Blood Pressure Source Blood Pressure Position 02 Sat by Pulse Oximetry 94 L 96 93 L Oxygen Delivery Method 01/30/25 12:00 01/30/25 12:31 01/30/25 12:45 Temperature 98.1 F Temperature Source Oral Pulse Rate 52 L 49 L 49 L Pulse Rate [Right] Respiratory Rate 14 12 16 Blood Pressure 137/60 127/65 127/65 Blood Pressure [Right Arm] Blood Pressure Mean [Right Arm] Blood Pressure Source Automatic Cuff Blood Pressure Position Supine 02 Sat by Pulse Oximetry 94 L 94 L Oxygen Delivery Method Room Air Lab Data Lab results reviewed: Yes I reviewed the patient's lab results. Lab Results 01/30/25 10:22: WBC 6.9, RBC 4.12 L, Hgb 12.2 L, Hct 37.9 L, MCV 92.0, MCH 29.6, MCHC 32.2, RDW 12.8, Plt Count 172, MPV 9.6, Neut % (Auto) 66.0, Lymph % (Auto) 24.8, [place] % (Auto) 6.3, Eos % (Auto) 1.9, Baso % (Auto) 0.9, Neut # (Auto) 4.6, Lymph # (Auto) 1.7, [place] # (Auto) 0.4, Eos # (Auto) 0.1, Baso # (Auto) 0.1, Sodium 139, Potassium 4.2, Chloride 105, Carbon Dioxide 30, Anion Gap 8.2, BUN 13, Creatinine 0.90, Estimated Creat Clear 91, Estimated GFR 83, Est GFR ( Amer) 101, Glucose 121 H, Calcium 9.7, Total Bilirubin 0.7, AST 25, ALT 16, Alkaline Phosphatase 108, Troponin I < 0.01, NT-Pro-B Natriuret Pep 172 H, Total Protein 7.1, Albumin 3.7, Globulin 3.4 H, Albumin/Globulin Ratio 1.1 01/30/25 10:22 01/30/25 10:22 Orders (Tests/Meds): ED MEDICATIONS Discontinued Medications Generic Name Dose Route Start Last Admin Trade Name Freq PRN Reason Stop Dose Admin Hydrocodone Bitart/Acetaminophen 1 tab 01/30/25 10:32 01/30/25 10:43 Hydrocodone/Apap 5/325 Mg Tablet PO 01/30/25 10:33 1 tab ONCE ONE Administration Iopamidol 80 ml 01/30/25 11:15 01/30/25 11:18 Iopamidol-370 (76%);100ml Bottle IV 01/30/25 11:16 80 ml ONCE ONE Administration Ondansetron HCl 4 mg 01/30/25 10:32 01/30/25 10:43 Ondansetron 4mg/2ml Vial IV 01/30/25 10:33 4 mg ONCE ONE Administration Sodium Chloride 10 ml 01/30/25 11:15 01/30/25 11:17 Sodium Chloride 0.9% 10ml Syr (Rad Only) IV 01/30/25 11:16 10 ml ONCE ONE Administration Sodium Chloride 50 ml 01/30/25 11:15 01/30/25 11:17 0.9 % Sodium Chloride 50 Ml Vial IV 01/30/25 11:16 50 ml ONCE ONE Administration ORDERS Category Date Time Status CT head/brain wo con Stat Cat Scan 01/30/25 10:25 Completed CTA Chest [CT angio chest - dissection] Stat Cat Scan 01/30/25 10:20 Completed XR chest portable Stat Exams 01/30/25 10:24 Completed Complete Blood Count Auto Diff Stat Lab 01/30/25 10:22 Completed Comprehensive Metabolic Panel Stat Lab 01/30/25 10:22 Completed NT Pro Brain Natriuretic Pep. Stat Lab 01/30/25 10:22 Completed Troponin I Stat Lab 01/30/25 10:22 Completed Medical Decision Narrative: 69-year-old male presents the emergency department with multiple medical complaints, and concern for high blood pressure sent from specialist office as outpatient, differential diagnose include but not limited to, hypertensive urgency, hypertensive emergency, cardiac arrhythmia, electrolyte disturbance, aortic dissection, malignancy, tension headache, migraine without aura, cluster headache, pneumonia, ACS, costochondritis, panic attack, among others. I discussed the patient's case with the attending physician Will obtain basic laboratory studies, CXR, CTA chest dissection protocol, CT head without contrast, troponin, proBNP, EKG, will give 5 mg p.o. [place] for pain and 4 mg of Zofran for nausea. I did offer the patient IV morphine and narcotics, patient denied morphine administration and states I would rather not have any morphine . Patient tells me that he is taking hydrocodone , before at home and has had success controlling his pain with this medication. CBC is unremarkable Troponin is within normal limits at less than 0.01, proBNP is mildly elevated at 172. I reviewed the patient's CT head without contrast along the corresponding radiological report, stable postsurgical changes from right occipital craniotomy, stable partially calcified mass in the right CP angle, pre and post infuse MRI may be of value. I reviewed the patient's CTA chest with and without contrast, along with the corresponding radiologic report, ascending aortic aneurysm measuring 4 cm. Reviewed the patient's chest x-ray along the corresponding radiologic report, no acute process. Reexamination of the patient at approximately 12:40 PM, patient is sleeping and resting comfortably in bed, patient states his headache and chest pain have improved, and his blood pressures improved to 127 systolic, after medication/analgesia was given, patient is already on 3 antihypertensives I encouraged him to continue taking this medication as prescribed. Patient will follow-up with PCP vascular surgeon and other providers for findings here in the emergency department today. Patient was given all results of his laboratory studies and imaging studies. Patient voiced understanding and agreement Contreet plan/discharge plan, strict ED return precautions were given. <Vahid Mata MD - Last Filed: 01/30/25 13:24> Vital Signs: 01/30/25 10:05 01/30/25 10:13 01/30/25 10:31 Temperature 98.3 F Temperature Source Oral Pulse Rate 56 L 54 L Pulse Rate [Right] 60 Respiratory Rate 18 15 12 Blood Pressure 157/97 H 174/98 H Blood Pressure [Right Arm] 188/98 H Blood Pressure Mean [Right Arm] 128 Blood Pressure Source Blood Pressure Position 02 Sat by Pulse Oximetry 98 97 96 Oxygen Delivery Method Room Air 01/30/25 10:46 01/30/25 11:00 01/30/25 11:30 Temperature Temperature Source Pulse Rate 56 L 60 52 L Pulse Rate [Right] Respiratory Rate 14 13 12 Blood Pressure 164/96 H 148/80 H 141/72 H Blood Pressure [Right Arm] Blood Pressure Mean [Right Arm] Blood Pressure Source Blood Pressure Position 02 Sat by Pulse Oximetry 94 L 96 93 L Oxygen Delivery Method 01/30/25 12:00 01/30/25 12:31 01/30/25 12:45 Temperature 98.1 F Temperature Source Oral Pulse Rate 52 L 49 L 49 L Pulse Rate [Right] Respiratory Rate 14 12 16 Blood Pressure 137/60 127/65 127/65 Blood Pressure [Right Arm] Blood Pressure Mean [Right Arm] Blood Pressure Source Automatic Cuff Blood Pressure Position Supine 02 Sat by Pulse Oximetry 94 L 94 L Oxygen Delivery Method Room Air Lab Data Lab Results 01/30/25 10:22: WBC 6.9, RBC 4.12 L, Hgb 12.2 L, Hct 37.9 L, MCV 92.0, MCH 29.6, MCHC 32.2, RDW 12.8, Plt Count 172, MPV 9.6, Neut % (Auto) 66.0, Lymph % (Auto) 24.8, [place] % (Auto) 6.3, Eos % (Auto) 1.9, Baso % (Auto) 0.9, Neut # (Auto) 4.6, Lymph # (Auto) 1.7, [place] # (Auto) 0.4, Eos # (Auto) 0.1, Baso # (Auto) 0.1, Sodium 139, Potassium 4.2, Chloride 105, Carbon Dioxide 30, Anion Gap 8.2, BUN 13, Creatinine 0.90, Estimated Creat Clear 91, Estimated GFR 83, Est GFR ( Amer) 101, Glucose 121 H, Calcium 9.7, Total Bilirubin 0.7, AST 25, ALT 16, Alkaline Phosphatase 108, Troponin I < 0.01, NT-Pro-B Natriuret Pep 172 H, Total Protein 7.1, Albumin 3.7, Globulin 3.4 H, Albumin/Globulin Ratio 1.1 Orders (Tests/Meds): ED MEDICATIONS Discontinued Medications Generic Name Dose Route Start Last Admin Trade Name Carmela PRN Reason Stop Dose Admin Hydrocodone Bitart/Acetaminophen 1 tab 01/30/25 10:32 01/30/25 10:43 Hydrocodone/Apap 5/325 Mg Tablet PO 01/30/25 10:33 1 tab ONCE ONE Administration Iopamidol 80 ml 01/30/25 11:15 01/30/25 11:18 Iopamidol-370 (76%);100ml Bottle IV 01/30/25 11:16 80 ml ONCE ONE Administration Ondansetron HCl 4 mg 01/30/25 10:32 01/30/25 10:43 Ondansetron 4mg/2ml Vial IV 01/30/25 10:33 4 mg ONCE ONE Administration Sodium Chloride 10 ml 01/30/25 11:15 01/30/25 11:17 Sodium Chloride 0.9% 10ml Syr (Rad Only) IV 01/30/25 11:16 10 ml ONCE ONE Administration Sodium Chloride 50 ml 01/30/25 11:15 01/30/25 11:17 0.9 % Sodium Chloride 50 Ml Vial IV 01/30/25 11:16 50 ml ONCE ONE Administration ORDERS Category Date Time Status CT head/brain wo con Stat Cat Scan 01/30/25 10:25 Completed CTA Chest [CT angio chest - dissection] Stat Cat Scan 01/30/25 10:20 Completed XR chest portable Stat Exams 01/30/25 10:24 Completed Complete Blood Count Auto Diff Stat Lab 01/30/25 10:22 Completed Comprehensive Metabolic Panel Stat Lab 01/30/25 10:22 Completed NT Pro Brain Natriuretic Pep. Stat Lab 01/30/25 10:22 Completed Troponin I Stat Lab 01/30/25 10:22 Completed ECG Data Tracing #1: I reviewed this ECG and interpreted as documented below: Sinus bradycardia with ventricular rate of [address] elevation or depression. QTc normal at 411 Medical Decision Narrative: 69-year-old male presents the emergency department with multiple medical complaints, and concern for high blood pressure sent from specialist office as outpatient, differential diagnose include but not limited to, hypertensive urgency, hypertensive emergency, cardiac arrhythmia, electrolyte disturbance, aortic dissection, malignancy, tension headache, migraine without aura, cluster headache, pneumonia, ACS, costochondritis, panic attack, among others. I discussed the patient's case with the attending physician Will obtain basic laboratory studies, CXR, CTA chest dissection protocol, CT head without contrast, troponin, proBNP, EKG, will give 5 mg p.o. [place] for pain and 4 mg of Zofran for nausea. I did offer the patient IV morphine and narcotics, patient denied morphine administration and states I would rather not have any morphine . Patient tells me that he is taking hydrocodone , before at home and has had success controlling his pain with this medication. CBC is unremarkable Troponin is within normal limits at less than 0.01, proBNP is mildly elevated at 172. I reviewed the patient's CT head without contrast along the corresponding radiological report, stable postsurgical changes from right occipital craniotomy, stable partially calcified mass in the right CP angle, pre and post infuse MRI may be of value. I reviewed the patient's CTA chest with and without contrast, along with the corresponding radiologic report, ascending aortic aneurysm measuring 4 cm. Reviewed the patient's chest x-ray along the corresponding radiologic report, no acute process. Reexamination of the patient at approximately 12:40 PM, patient is sleeping and resting comfortably in bed, patient states his headache and chest pain have improved, and his blood pressures improved to 127 systolic, after medication/analgesia was given, patient is already on 3 antihypertensives I encouraged him to continue taking this medication as prescribed. Patient will follow-up with PCP vascular surgeon and other providers for findings here in the emergency department today. Patient was given all results of his laboratory studies and imaging studies. Patient voiced understanding and agreement Contreet plan/discharge plan, strict ED return precautions were given. I was consulted by the ANTWON, and we discussed the complexity of the problems being addressed. I approve the treatment and management plan for this patient's care in the emergency department, thus performing a substantive portion of the medical decision making. Vahid Mata MD Critical Care <LOUIE Gallardo - Last Filed: 01/30/25 12:44> Critical Care Time Critical Care Time: No
--- OUTSIDE RECORDS SUMMARY | 2025-01-30 10:17 | XMS_ITS | Encounter Summary ---
Author Organization [employer] ([place], [place], [place], [place]) Address [address] [place] [address] Care Team Providers Care Hat And Cap Sewer Name Role Phone Unavailable Primary Care Provider Unavailabl e Encounter Details Date Type Department Care Team (Late st Contact Info) Description 10/30/2020 Transcribed Document [facility] [place] [address] [place] [address] ProviderChristina MD [address] [place] [address] Social History Tobacco Use Types [...]
--- OUTSIDE RECORDS SUMMARY | 2025-01-30 10:17 | XMS_ITS | Encounter Summary ---
Author Organization [employer] ([place], [place], [place], [place]) Address [address] [place] [address] Care Team Providers Care Refractory Products Supervisor Name Role Phone Unavailable Primary Care Provider Unavailabl e Encounter Details Date Type Department Care Team (Late st Contact Info) Description 10/30/2020 Transcribed Document [facility] [place] [address] [place] [address] ProviderChristina MD [address] [place] [address] Social History Tobacco Use Types [...] Health Plan: [employer] PPO Policy Number: [id number] Authorization Number: Insurance 2 Health Plan: [facility] Policy Number: [id number] Authorization Number: Insurance Primary Name : [employer]ICE PPO Policy Number: [id number] Authorized Service Begin Date-Primary : 10/29/2020 EDT Historical Authorization Comments-Primary : No Authorization Comments Found Nasima Salgado Rn-Utilization Review - 10/30/2020 13:38 EDT documented in this encounter Plan of Treatment Not on file documented as of this encounter Visit Diagnoses Not on filedocumented in this encounter
--- OUTSIDE RECORDS SUMMARY | 2025-01-30 10:17 | XMS_ITS | Encounter Summary ---
Author Organization Healthcare Address [address] [place] [address] Care Team Providers Care Caustic Purification Operator Name Role Phone Teo Dominguez MD Primary Care Provider + [phone] See Gann MD Unavailable [phone] Rufina Shrestha DDS Unavailable + Varinder Dey DMD Unavailable [phone] Encounter Details Date Type Department Care Team (Late st Contact Info) Description 09/17/2024 Orders Only External Location [address] [place] [address] Provider, External Social History Tobacco Use Types [...] documented as of this encounter Care Teams Caustic Purification Operator Relationship Specialty Start Date End Date Teo Dominguez MD [address] [place] [address] [phone] PCP - General 11/08/20 See Gann MD [address] [place] [address] Surgeon Neurosurgery 01/07/21 Rufina Shrestha DDS [address] [place] [address] Dentist Dentist 08/19/22 Varinder Dey DMD [address] [place] [address] Dentist 08/19/22 documented as of this encounter
--- OUTSIDE RECORDS SUMMARY | 2025-01-30 10:17 | XMS_ITS | Encounter Summary ---
Author Organization Healthcare Address [address] [place] [address] Care Team Providers Care Clock Repair Technician Name Role Phone Teo Dominguez MD Primary Care Provider + [phone] See Gann MD Unavailable [phone] Rufina Shrestha DDS Unavailable + Varinder Dey DMD Unavailable [phone] Encounter Details Date Type Department Care Team (Late st Contact Info) Description 09/17/2024 Orders Only External Location [address] [place] [address] Provider, External Social History Tobacco Use Types [...] documented as of this encounter Care Teams Clock Repair Technician Relationship Specialty Start Date End Date Teo Dominguez MD [address] [place] [address] [phone] PCP - General 11/08/20 See Gann MD [address] [place] [address] Surgeon Neurosurgery 01/07/21 Rufina Shreshta DDS [address] [place] [address] Dentist Dentist 08/19/22 Varinder Dey DMD [address] [place] [address] Dentist 08/19/22 documented as of this encounter
--- OUTSIDE RECORDS SUMMARY | 2025-01-30 10:17 | XMS_ITS | Encounter Summary ---
Author Organization [employer] ([place], [place], [place], [place]) Address [address] [place] [address] Care Team Providers Care Wool Sacker Name Role Phone Unavailable Primary Care Provider Unavailabl e Encounter Details Date Type Department Care Team (Late st Contact Info) Description 10/30/[address] [facility] [place] Family Medicine [address] [place] [address] ProviderChristina MD [address] [place] [address] Social History Tobacco Use [...] a seizure disorder. Clinical correlation is advised. /[id number] Zack Henderson MD WSB/AQ / WSB / MODL /[id number] documented in this encounter Plan of Treatment Not on file documented as of this encounter Visit Diagnoses Not on filedocumented in this encounter
--- OUTSIDE RECORDS SUMMARY | 2025-01-30 10:17 | XMS_ITS | Encounter Summary ---
Author Organization [employer] ([place], [place], [place], [place]) Address [address] [place] [address] Care Team Providers Care Hand Stapler Name Role Phone Unavailable Primary Care Provider Unavailabl e Encounter Details Date Type Department Care Team (Late st Contact Info) Description 10/30/2020 Transcribed Document [facility] [place] [address] [place] [address] ProviderChristina MD [address] [place] [address] Social History Tobacco Use Types [...] Health Plan: [employer] CHOICE PPO Policy Number: [id number] Authorization Number: Insurance 2 Health Plan: [employer] [facility] Policy Number: [id number] Authorization Number: Historical Authorization Comments-Primary : No Authorization Comments Found Nasima Salgado Rn-Utilization Review - 10/30/2020 13:21 EDT documented in this encounter Plan of Treatment Not on file documented as of this encounter Visit Diagnoses Not on filedocumented in this encounter
--- OUTSIDE RECORDS SUMMARY | 2025-01-30 10:17 | XMS_ITS | Encounter Summary ---
Author Organization [employer] ([place], [place], [place], [place]) Address [address] [place] [address] Care Team Providers Care Salesperson Pets And Pet Supplies Name Role Phone Unavailable Primary Care Provider Unavailabl e Encounter Details Date Type Department Care Team (Late st Contact Info) Description 10/30/2020 Transcribed Document [facility] [place] Family Medicine [address] [place] [address] ProviderChristina MD [address] [place] [address] Social History Tobacco Use Types [...] On: 10/30/2020 13:47 EDT by CATE KOHLER Hydro Mechanic Primary Insurance Authorization Authorization and Policy Numbers : Insurance 1 Health Plan: [employer] CHOICE PPO Policy Number: [id number] Authorization Number: Insurance 2 Health Plan: [facility] Policy Number: [id number] Authorization Number: Insurance Primary Name : [employer] CHOICE PPO Policy Number: [id number] Authorization Status-Primary : Opo status approv Authorized Service Begin Date-Primary : 10/29/2020 EDT Observation Authorization Nbr-Primary : [id number] Authorization Comments-Primary : Submitted for and obtained OBS approval from [facility] OBS auth# [id number] Historical Authorization Comments-Primary : No Authorization Comments Found CATE KOHLER, Hydro Mechanic - 10/30/2020 13:47 EDT Electronically signed by Donald, [facility] Conversion Label Rewinder Cerner at 10/14/2022 11:40 AM CDT documented in this encounter Plan of Treatment Not on file documented as of this encounter Visit Diagnoses Not on filedocumented in this encounter
--- OUTSIDE RECORDS SUMMARY | 2025-01-30 10:17 | XMS_ITS | Encounter Summary ---
Author Organization [employer] ([place], [place], [place], [place]) Address [address] [place] [address] Care Team Providers Care Carbon Paper Coating Supervisor Name Role Phone Unavailable Primary Care Provider Unavailabl e Encounter Details Date Type Department Care Team (Late st Contact Info) Description 10/30/2020 Transcribed Document [facility] [place] [address] [place] [address] ProviderChristina MD [address] [place] [address] Social History Tobacco Use Types [...] KATHY STODDARD OTR/Gm - 10/30/2020 15:14 EDT Detention Goals, OT Grooming LTG Grid Goal #1 [...]
--- OUTSIDE RECORDS SUMMARY | 2025-01-30 10:17 | XMS_ITS | Encounter Summary ---
Author Organization [employer] ([place], [place], [place], [place]) Address [address] [place] [address] Care Team Providers Care Chief Operator Lock Tender Name Role Phone Unavailable Primary Care Provider Unavailabl e Encounter Details Date Type Department Care Team (Late st Contact Info) Description 10/30/2020 Transcribed Document [facility] [place] [facility] [address] ProviderChristina MD [address] [place] [address] Social History Tobacco Use Types [...] hospital yesterday from the emergency room at [facility] for headaches and syncope, and I [...] the left. He decided to come to [facility] Emergency Room, where he was given [...] hydrocodone. SOCIAL HISTORY: The patient lives in [place] by himself, he . 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 He uses a [...] tongue, however, protrudes midline. Coordination shows intact mazvvt-wc-spvy and fyar-jq-hqhl bilaterally. Gait was not tested. DIAGNOSTIC STUDIES: IMAGING STUDIES: He had a CTA of the head and neck at [facility] yesterday. The CTA of the head showed no large vessel occlusion. 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 The patient had a CTA of the neck that was normal. The patient had a CT scan of his head at [facility] that suggested calcification of the right [...] of the head and neck done at [facility]. I have asked the staff to [...] artery appeared diffusely small throughout its course. /[id number] MD MAR Kulkarni/AQ / MAR / MODL /[id number] documented in this encounter Plan of Treatment Not on file documented as of this encounter Visit Diagnoses Not on filedocumented in this encounter
--- OUTSIDE RECORDS SUMMARY | 2025-01-30 10:17 | XMS_ITS | Encounter Summary ---
Author Organization [employer] ([place], [place], [place], [place]) Address [address] [place] [address] Care Team Providers Care Plastic Tool Maker Name Role Phone Unavailable Primary Care Provider Unavailabl e Encounter Details Date Type Department Care Team (Late st Contact Info) Description 10/30/2020 Transcribed Document [facility] [place] [address] [place] [address] ProviderChristina MD [address] [place], [place] [id number] Social History Tobacco Use Types Packs/Day Years [...] MORLEY Neurodiagnostic Tech - 10/30/2020 13:16 EDT Electronically signed by Asad Bennett Conversion Communications Field Technician Esdras at 10/14/2022 11:29 AM CDT documented in this encounter Plan of Treatment Not on file documented as of this encounter Visit Diagnoses Not on filedocumented in this encounter
--- OUTSIDE RECORDS SUMMARY | 2025-01-30 10:17 | XMS_ITS | Encounter Summary ---
Author Organization Healthcare Address [address] [place] [address] Care Team Providers Care Unleavened Dough Mixer Name Role Phone Teo Dominguez MD Primary Care Provider + [phone] See Gann MD Unavailable [phone] Rufina Shrestha DDS Unavailable + Varinder Dey DMD Unavailable [phone] Encounter Details Date Type Department Care Team (Late st Contact Info) Description 09/17/2024 Orders Only External Location [address] [place] [address] Provider, External Social History Tobacco Use Types [...] documented as of this encounter Care Teams Unleavened Dough Mixer Relationship Specialty Start Date End Date Teo Dominguez MD [address] [place] [address] [phone] PCP - General 11/08/20 See Gann MD [address] [place] [address] Surgeon Neurosurgery 01/07/21 Rufina Shrestha DDS [address] [place] [address] Dentist Dentist 08/19/22 Varinder Dey DMD [address] [place] [address] Dentist 08/19/22 documented as of this encounter
--- OUTSIDE RECORDS SUMMARY | 2025-01-30 10:17 | XMS_ITS | Encounter Summary ---
Author Organization [employer] ([place], [place], [place], [place]) Address [address] [place] [address] Care Team Providers Care Communications Scientist Name Role Phone Unavailable Primary Care Provider Unavailabl e Encounter Details Date Type Department Care Team (Late st Contact Info) Description 10/30/[address] [facility] [place] Family Medicine [address] [place] [address] ProviderChristina MD [address] [place] [address] Social History Tobacco Use Types [...] to Chair : Rehab Minimal assistance (Comment: SET UP MECHANIC COIL WINDING MACHINES with gait belt [BALWINDER KWOK, PT - [...] BALWINDER KWOK, PT - 10/30/2020 16:28 EDT Correction Goals Mobility/Bed Mobility LTG PT Grid Goal [...] 10/30/2020 16:28 EDT Electronically signed by Donald [facility] Conversion Homicide Squad Commanding Officer Cerner at 10/14/2022 11:44 AM CDT documented in this encounter Plan of Treatment Not on file documented as of this encounter Visit Diagnoses Not on filedocumented in this encounter
--- OUTSIDE RECORDS SUMMARY | 2025-01-30 10:17 | XMS_ITS | Encounter Summary ---
Author Organization Healthcare Address [address] [place] [address] Care Team Providers Care Industrial Engineering Director Name Role Phone Teo Dominguez MD Primary Care Provider + [phone] See Gann MD Unavailable [phone] Rufina Shrestha DDS Unavailable + Varinder Dey DMD Unavailable [phone] Encounter Details Date Type Department Care Team (Late st Contact Info) Description 02/08/2024 Orders Only External Location [address] [place] [address] Provider, External Social History Tobacco Use Types [...] documented as of this encounter Care Teams Industrial Engineering Director Relationship Specialty Start Date End Date Teo Dominguez MD [address] [place] [address] PCP - General 11/08/20 See Gann MD [address] [place] [address] Surgeon Neurosurgery 01/07/21 Rufina Shrestha DDS [address] [place] [address] Dentist Dentist 08/19/22 Varinder Dey DMD [address] [place] [address] Dentist 08/19/22 documented as of this encounter
--- OUTSIDE RECORDS SUMMARY | 2025-01-30 10:18 | XMS_ITS | Encounter Summary ---
Author Organization Healthcare Address [address] [place] [address] Care Team Providers Care Rubber Attacher Name Role Phone Teo Dominguez MD Primary Care Provider + [phone] See Gann MD Unavailable [phone] Rufina Shrestha DDS Unavailable + Varinder Dey DMD Unavailable [phone] Encounter Details Date Type Department Care Team (Late st Contact Info) Description 04/17/2024 Orders Only External Location [address] [place] [address] Mehul Calderon MD [address] [address] Social History Tobacco Use Types [...] documented as of this encounter Care Teams Rubber Attacher Relationship Specialty Start Date End Date Teo Dominguez MD [address] [place] [address] PCP - General 11/08/20 See Gann MD [address] [place] [address] Surgeon Neurosurgery 01/07/21 Rufina Shrestha DDS [address] [place] [address] Dentist Dentist 08/19/22 Varinder Dey DMD [address] [place] [address] Dentist 08/19/22 documented as of this encounter
--- OUTSIDE RECORDS SUMMARY | 2025-01-30 10:18 | XMS_ITS | Encounter Summary ---
Author Organization [employer] ([place], [place], [place], [place]) Address [address] [place] [address] Care Team Providers Care Assistant Production Editor Name Role Phone Unavailable Primary Care Provider Unavailabl e Encounter Details Date Type Department Care Team (Late st Contact Info) Description 10/29/2020 Transcribed Document [facility] [place] Family Medicine [address] [place] [address] ProviderChristina MD [address] [place] [address] Social History Tobacco Use Types [...]
--- OUTSIDE RECORDS SUMMARY | 2025-01-30 10:18 | XMS_ITS | Encounter Summary ---
Author Organization [employer] ([place], [place], [place], [place]) Address [address] [place] [address] Care Team Providers Care Finger Buff Sewer Name Role Phone Unavailable Primary Care Provider Unavailabl e Encounter Details Date Type Department Care Team (Late st Contact Info) Description 10/31/2020 Transcribed Document [facility] [place] Family Medicine [address] [place] [address] ProviderChristina MD [address] [place] [address] Social History Tobacco Use Types [...]
--- OUTSIDE RECORDS SUMMARY | 2025-01-30 10:18 | XMS_ITS | Encounter Summary ---
Author Organization [employer] ([place], [place], [place], [place]) Address [address] [place] [address] Care Team Providers Care Engineering Lecturer Name Role Phone Unavailable Primary Care Provider Unavailabl e Encounter Details Date Type Department Care Team (Late st Contact Info) Description 10/29/[address] [facility] [place] Family Medicine [address] [place] [address] ProviderChristina MD [address] [place] [address] Social History Tobacco Use Types [...] #2 Relationship : n Primary Language : Prydeinig Communication Barrier : None Miller Helper Distillery Needed : No GO CALL RN - [...] Level : 46 or > High Risk [place] Fall Interventions : Adequate lighting, Assistive devices [...] Source : Stated Height Entry Format : [place] Height, Feet : 5 ft(Converted to: 152 cm, 60 Inch) Height, Inches : 8 Inch(Converted to: 0 ft 8 Inch, 20.32 cm) Clinical Height : 172.72 cm Weight Source : Standing scale Weight Entry Format : [place] Clinical Dosing Weight : 95.45 kg Weight, Pounds : 210 lb Body Surface Area (BSA) : 2.09 m2 Body Mass Index : 32 kg/m2 (HI) [place] Body Weight : 67 kg GO CALL [...] GO CALL RN - 10/29/2020 22:[address] [place] Suicide Severity Rating Scale (C-SSRS) CSSRS Past [...] GO CALL RN - 10/29/2020 22:27 EDT documented in this encounter Plan of Treatment Not on file documented as of this encounter Visit Diagnoses Not on filedocumented in this encounter
--- OUTSIDE RECORDS SUMMARY | 2025-01-30 10:18 | XMS_ITS | Encounter Summary ---
Author Organization [employer] ([place], [place], [place], [place]) Address [address] [place] [address] Care Team Providers Care Personal Chef Name Role Phone Unavailable Primary Care Provider Unavailabl e Encounter Details Date Type Department Care Team (Late st Contact Info) Description 10/30/2020 Transcribed Document [facility] [place] Family Medicine [address] [place] [address] ProviderChristina MD [address] [place] [address] Social History Tobacco Use Types [...] On: 10/30/2020 11:07 EDT by PRIETO MILLS RN-Soil Checker Initial Assessment I Previously Documented Living Environment [...] Is Guardianship Needed : No PRIETO MILLS RN-Soil Checker - 10/30/2020 11:07 EDT Initial Assessment II Sensory and Motor Deficits : None Current Home Treatments and Equipment : None PRIETO MILLS RN-Soil Checker - 10/30/2020 11:07 EDT Discharge Needs I Anticipated Discharge Date : 10/31/2020 EDT Anticipated Discharge To, CM : Home with family care Current Home Treatment/Equipment : Current Home Treatment/Equipment No qualifying data available. Post Acute/Home Treatments : None Documentation Status Complete : Yes PRIETO MILLS RN-Soil Checker - 10/30/2020 11:07 EDT Discharge Needs II Professional Skilled Services : Professional Skilled Services No qualifying data available. Needs Assistance with Transportation : No PRIETO MILLS RN-Soil Checker - 10/30/2020 11:07 EDT Narrative Note Narrative Note : Received from outside facility to here due to headache, placed in observation. Neurology has been consulted. Met with Pt at the bedside. Role of CM explained. Pt states that he is ADL independent, lives home alone, but has his south korean yeager (like my service dog). Plans are to return home when discharged. Pt states that he has bulging discs and wonders if these are causing his issues. No needs anticipated/verbalized at this time. RRS is low @ 31, boost 5. CM will follow. PRIETO MILLS RN-Soil Checker - 10/30/2020 11:07 EDT documented in this encounter Plan of Treatment Not on file documented as of this encounter Visit Diagnoses Not on filedocumented in this encounter
--- OUTSIDE RECORDS SUMMARY | 2025-01-30 10:18 | XMS_ITS | Encounter Summary ---
Author Organization [employer] ([place], [place], [place], [place]) Address [address] [place] [address] Care Team Providers Care Air Pollution Specialist Name Role Phone Unavailable Primary Care Provider Unavailabl e Encounter Details Date Type Department Care Team (Late st Contact Info) Description 10/30/2020 Transcribed Document [facility] [place] [address] [place] [address] ProviderChristina MD [address] [place] [address] Social History Tobacco Use Types [...] 10/30/2020 12:24 EDT Electronically signed by Donald [facility] Conversion Bag Shaker Cerner at 10/14/2022 11:48 AM CDT documented in this encounter Plan of Treatment Not on file documented as of this encounter Visit Diagnoses Not on filedocumented in this encounter
--- OUTSIDE RECORDS SUMMARY | 2025-01-30 10:18 | XMS_ITS | Clinical Summary ---
Author Organization [employer] ([place], [place], [place], [place]) Address [address] [place] [address] Care Team Providers Care Regional Flatbed Truck Driver Name Role Phone Unavailable Primary Care [...]
--- OUTSIDE RECORDS SUMMARY | 2025-01-30 10:18 | XMS_ITS | Encounter Summary ---
Author Organization [employer] ([place], [place], [place], [place]) Address [address] [place] [address] Care Team Providers Care Ditching Machine Engineer Name Role Phone Unavailable Primary Care Provider Unavailabl e Encounter Details Date Type Department Care Team (Late st Contact Info) Description 10/31/2020 Transcribed Document [facility] [place] Family Medicine [address] [place] [address] ProviderChristina MD [address], [place] [id number] Social History Tobacco Use Types Packs/Day Years [...] On: 10/31/2020 13:45 EDT by PRIETO MILLS RN-Acid Crane Operator Final Discharge Planning Discharge Arrangements : Patient [...] : Yes Discharge To Care Management : Home/Residential/Usp or Self Care -01 PRIETO MILLS RN-Acid Crane Operator - 10/31/2020 13:45 EDT Final Narrative Note Final Narrative Note : Discharged to home, agreeable. No needs verbalized at this time. PRIETO MILLS RN-Acid Crane Operator - 10/31/2020 13:45 EDT documented in this encounter Plan of Treatment Not on file documented as of this encounter Visit Diagnoses Not on filedocumented in this encounter
--- OUTSIDE RECORDS SUMMARY | 2025-01-30 10:18 | XMS_ITS | Referral Summary ---
Author Organization [employer] ([place], [place], [place], [place]) Address [address] [place] [address] Care Team Providers Care Invasive Cardiologist Name Role Phone Unavailable Primary Care Provider [...]
--- OUTSIDE RECORDS SUMMARY | 2025-01-30 10:18 | XMS_ITS | Encounter Summary ---
Author Organization Healthcare Address [address] [place] [address] Care Team Providers Care Baccarat Manager Name Role Phone Teo Dominguez MD Primary Care Provider + [phone] See Gann MD Unavailable [phone] Rufina Shrestha DDS Unavailable + Varinder Dey DMD Unavailable [phone] Encounter Details Date Type Department Care Team (Late st Contact Info) Description 02/08/2024 Orders Only External Location [address] [place] [address] Provider, External Social History Tobacco Use Types [...] documented as of this encounter Care Teams Baccarat Manager Relationship Specialty Start Date End Date Teo Dominguez MD [address] [place] [address] PCP - General 11/08/20 See Gann MD [address] [place] [address] Surgeon Neurosurgery 01/07/21 Rufina Shrestha DDS [address] [place] [address] Dentist Dentist 08/19/22 Varinder Dey DMD [address] [place] [address] Dentist 08/19/22 documented as of this encounter
--- OUTSIDE RECORDS SUMMARY | 2025-01-30 10:18 | XMS_ITS | Clinical Summary ---
Author Organization [facility] Address [address] [place] [address] Care Team Providers Care Informatics Coordinator Name Role Phone Teo Dominguez MD Primary Care Provider + [phone] See Gann MD Unavailable [phone] Rufina Shrestha DDS Unavailable + Varinder Dey DMD Unavailable [phone] Allergies Active Allergy Reactions Criticality Noted Date [...] tablet .COMPLEX 4 Active neomycin-polymyxin- dexamethamethasone (Polydex) 3.5-66877-6.1 ointment ophthalmic ointment 3 Active ondansetron ODT [...] Type Department Care Team Description 12/12/2024 Community [facility] Community Practice [address] [place] [address] Veronica Edmond MD from Last 3 Months [...] 2013 UKY-Abdominal Aortic Aneurysm (AAA) Screening 2018 [id number]-65 Vaccine (3 - Moderna risk series) 04/04/2021 [...] this topic Medical Devices Implanted Type Area Mineral Engineer Device Identifier Shelf Expiration Date Model / Serial / Lot Eye Gold Weight Eye Gold Weight Right: Ear 16mm (Prox) X 20mm (Distal) X 146mm Total Covered, Endurant Ii Aaa Contralateral Limb Stent Graft Implanted:Qty: 1 on 12/22/2021 by Lan Gray MD at [facility] Stent 08/20/2023 [id number] / [id number] / [id number] Description:Ref#[id number] E Endurant Iis Bifurcated [id number] - [id number] Implanted:Qty: 1 on 12/19/2021 by Lan Gray MD at [facility] N/A: Aorta Medtronic [facility]-[id number] 07/08/2023 [id number] / [id number] / [id number] Endurant Ii Contra Limb [id number] - [id number] Implanted:Qty: 1 on 12/19/2021 by Lan Gray MD at [facility] Right: Arterial Medtronic [place]-[id number] 07/16/2023 [id number] / [id number] / [id number] Insurance [employer] [facility] MEDICAID [facility] MEDICARE Advance Directives * Full Code (Latest Code Status on File) Date Activated Date Inactivated Comments 12/19/2021 11:13 AM 12/21/2021 3:38 PM Question Answer Comments Patient has decision-making capacity? Yes Care Teams Informatics Coordinator Relationship Specialty Start Date End Date Teo Dominguez MD [address] [place] [address] PCP - General 11/08/20 See Gann MD [address] [place] [address] Surgeon Neurosurgery 01/07/21 Rufina Shrestha DDS [address] [place] [address] Dentist Dentist 08/19/22 Varinder Dey DMD [address] [place] [address] Dentist 08/19/22
--- OUTSIDE RECORDS SUMMARY | 2025-01-30 10:18 | XMS_ITS | Encounter Summary ---
Author Organization [employer] ([place], [place], [place], [place]) Address [address] [place] [address] Care Team Providers Care Tree Wrapper Name Role Phone Unavailable Primary Care Provider Unavailabl e Encounter Details Date Type Department Care Team (Late st Contact Info) Description 10/31/2020 Transcribed Document [facility] [place] Family Medicine [address] [place] [address] ProviderChristina MD [address], [place] [id number] Social History Tobacco Use Types Packs/Day Years [...] PHYSICAL THERAPIST NON-EXEMPT - 10/31/2020 16:28 EDT Center Line Cutter Operator Goals Mobility/Bed Mobility LTG PT Grid Goal [...]
--- OUTSIDE RECORDS SUMMARY | 2025-01-30 10:18 | XMS_ITS | Encounter Summary ---
Author Organization [employer] ([place], [place], [place], [place]) Address [address] [place] [address] Care Team Providers Care Boom Conveyor Operator Name Role Phone Unavailable Primary Care Provider Unavailabl e Encounter Details Date Type Department Care Team (Late st Contact Info) Description 10/29/2020 Transcribed Document [facility] [place] [place] [facility] [place] [address] ProviderChristina MD [address], [place] [phone] Social History Tobacco Use Types Packs/Day Years [...] diff colitis in july who presented to [facility] on 10/29 for evaluation of headache and [...] iv fluids and toradol and transferred to [facility] for further evaluation. Health Status Allergies: [...] At risk for sleep apnea / IMO [id number] / Confirmed, Active Problems (1) At risk [...] facial droop. eomi, tongue protrudes midline. 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 hard of hearing. 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 documented in this encounter Plan of Treatment Not on file documented as of this encounter Visit Diagnoses Not on filedocumented in this encounter
--- OUTSIDE RECORDS SUMMARY | 2025-01-30 10:18 | XMS_ITS | Encounter Summary ---
Author Organization Healthcare Address [address] [place] [address] Care Team Providers Care Concrete Pipe Maker Name Role Phone Teo Dominguez MD Primary Care Provider + [phone] See Gann MD Unavailable [phone] Rufina Shrestha DDS Unavailable + Varinder Dey DMD Unavailable [phone] Encounter Details Date Type Department Care Team (Late st Contact Info) Description 04/17/2024 Orders Only External Location [address] [place] [address] Provider, External Social History Tobacco Use Types [...] documented as of this encounter Care Teams Concrete Pipe Maker Relationship Specialty Start Date End Date Teo Dominguez MD [address] [place] [address] PCP - General 11/08/20 See Gann MD [address] [place] [address] Surgeon Neurosurgery 01/07/21 Rufina Shrestha DDS [address] [place] [address] Dentist Dentist 08/19/22 Varinder Dey DMD [address] [place] [address] Dentist 08/19/22 documented as of this encounter
--- OUTSIDE RECORDS SUMMARY | 2025-01-30 10:18 | XMS_ITS | Encounter Summary ---
Author Organization [employer] ([place], [place], [place], [place]) Address [address] [place] [address] Care Team Providers Care Leadership Program Internship Name Role Phone Unavailable Primary Care Provider Unavailabl e Encounter Details Date Type Department Care Team (Late st Contact Info) Description 10/31/2020 Transcribed Document [facility] [place] [address] [place] [address] ProviderChristina MD [address] [place] [address] Social History Tobacco Use Types [...]
--- OUTSIDE RECORDS SUMMARY | 2025-01-30 10:18 | XMS_ITS | Encounter Summary ---
Author Organization [employer] ([place], [place], [place], [place]) Address [address] [place] [address] Care Team Providers Care Assistant Foreman Name Role Phone Unavailable Primary Care Provider Unavailabl e Encounter Details Date Type Department Care Team (Late st Contact Info) Description 10/31/2020 Transcribed Document [facility] [address] [place] [address] ProviderChristina MD [address] [place], [place] [phone] Social History Tobacco Use Types Packs/Day Years [...] Health Plan: [employer] PPO Policy Number: [id number] Authorization Number: Insurance 2 Health Plan: [facility] Policy Number: [id number] Authorization Number: Insurance Primary Name : [employer] PPO Policy Number: [id number] Authorization Status-Primary : Opo status approv Authorized Service Begin Date-Primary : 10/29/2020 EDT Observation Authorization Nbr-Primary : [id number] Historical Authorization Comments-Primary : Comment 1: Submitted for and obtained OBS approval from [facility] OBS auth# [id number] (CATE KOHLER, Political Theory Professor 10/30/2020 13:47) Nasima Salgado Rn-Utilization Review - 10/31/2020 9:22 EDT Electronically signed by [facility], [facility] Conversion Online Tutor Cerner at 10/14/2022 11:25 AM CDT documented in this encounter Plan of Treatment Not on file documented as of this encounter Visit Diagnoses Not on filedocumented in this encounter
--- OUTSIDE RECORDS SUMMARY | 2025-01-30 10:18 | XMS_ITS | Encounter Summary ---
Author Organization [employer] ([place], [place], [place], [place]) Address [address] [place] [address] Care Team Providers Care Heating Worker Name Role Phone Unavailable Primary Care Provider Unavailabl e Encounter Details Date Type Department Care Team (Late st Contact Info) Description 10/31/2020 Transcribed Document [facility] [place] [address] [place] [address] ProviderChristina MD [address] [place] [address] Social History Tobacco Use Types [...] with your condition: Managing pain ??? Take cacp-vua-pjbepys and prescription medicines only as told by [...] provider. Document Revised: 01/02/2019 Document Reviewed: 01/02/2019 [employer] Patient Education ? 2020 [employer] Electronically signed by Asad Bennett Conversion University Relations Recruiter Kamilahner at 10/14/2022 11:38 AM CDT documented in this encounter Plan of Treatment Not on file documented as of this encounter Visit Diagnoses Not on filedocumented in this encounter
--- OUTSIDE RECORDS SUMMARY | 2025-01-30 10:18 | XMS_ITS | Encounter Summary ---
Author Organization [employer] ([place], [place], [place], [place]) Address [address] [place] [address] Care Team Providers Care Propeller Layout Worker Name Role Phone Unavailable Primary Care Provider Unavailabl e Encounter Details Date Type Department Care Team (Late st Contact Info) Description 10/31/2020 Transcribed Document [facility] [place] Family Medicine [address] [place] [address] ProviderChristina MD [address] [place] [address] Social History Tobacco Use Types [...] Jarvis MD - 10/31/2020 1:15 PM CDT [place] [address] SHANNAN SAMANIEGO SR :1955 Visit [...] call for a follow up appointment with [facility] Neurology. Where: [address] [place] [address]- Business (1) Medications What How Much When Instructions Next Dose acetaminophen/ butalbital/ caffeine (Fioricet oral capsule) 1 Capsule(s) Oral Every 6 Hours as needed for Headache Duration: 3 Day(s) Printed Prescription atorvastatin (atorvastatin 40 mg oral tablet) 1 Tablet(s) Oral Every Day Duration: 90 Day(s) Pickup at [facility] sucralfate (Carafate 1 g/ 10 mL oral suspension) 10 Milliliter(s) Oral Before Meals Pickup at [facility] LORazepam (LORazepam 0.5 mg oral tablet) 1 [...] Hours as needed for Nausea Pharmacy Information [facility]: [address] [facility] [address] [place], [place] [phone] Take your medications faithfully. Do NOT skip [...] with your condition: Managing pain ??? Take jjum-chb-jlfofos and prescription medicines only as told by [...] provider. Document Revised: 01/02/2019 Document Reviewed: 01/02/2019 [employer] Patient Education ?? 2020 [employer]. acetaminophen, butalbital, and caffeine (a SEET a [...] Acetaminophen is a pain reliever and fever farm equipment maintenance supervisor. Butalbital is in a group of drugs [...] may report side effects to FDA at 0-666-BGI-2008. What other drugs will affect acetaminophen, butalbital, [...] acetaminophen, butalbital, and caffeine, including prescription and mfvi-xvj-czgaeck medicines, vitamins, and herbal products. Tell each [...] to ensure that the information provided by [employer]. ('[employer]') is accurate, up-to-date, and complete, but no guarantee is made to that effect. Drug information contained herein may be time sensitive. [employer] information has been compiled for use by healthcare practitioners and consumers in the [place] and therefore [employer] does not warrant that uses outside of the [place] are appropriate, unless specifically indicated otherwise. [employer] drug information does not endorse drugs, diagnose patients or recommend therapy. [employer] drug information is an informational resource designed [...] effective or appropriate for any given patient. [employer] does not assume any responsibility for any aspect of healthcare administered with the aid of information [employer] provides. The information contained herein is not intended to cover all possible uses, directions, precautions, warnings, drug interactions, allergic reactions, or adverse effects. If you have questions about the drugs you are taking, check with your doctor, nurse or pharmacist. Copyright 1109-5781 [employer]. Version: 6.02. Revision Date: 07/22/2015. sucralfate (oral) [...] may report side effects to FDA at 5-183-PUJ-0870. What other drugs will affect sucralfate? Other drugs may affect sucralfate, including prescription and trxg-iby-yywsnhu medicines, vitamins, and herbal products. Tell your [...] to ensure that the information provided by [employer]. ('[employer]') is accurate, up-to-date, and complete, but no guarantee is made to that effect. Drug information contained herein may be time sensitive. [employer] information has been compiled for use by healthcare practitioners and consumers in the [place] and therefore [employer] does not warrant that uses outside of the [place] are appropriate, unless specifically indicated otherwise. [employer] drug information does not endorse drugs, diagnose patients or recommend therapy. [employer] drug information is an informational resource designed [...] effective or appropriate for any given patient. [employer] does not assume any responsibility for any aspect of healthcare administered with the aid of information [employer] provides. The information contained herein is not intended to cover all possible uses, directions, precautions, warnings, drug interactions, allergic reactions, or adverse effects. If you have questions about the drugs you are taking, check with your doctor, nurse or pharmacist. Copyright 3988-6301 [facility] [employer]. Version: 03.28. Revision Date: 08/29/2020. atorvastatin (a [...] may report side effects to FDA at 9-157-CCW-9379. What other drugs will affect atorvastatin? Certain [...] may affect atorvastatin. This includes prescription and waea-mzc-fcmubio medicines, vitamins, and herbal products. Not all [...] to ensure that the information provided by [employer]. ('[employer]') is accurate, up-to-date, and complete, but no guarantee is made to that effect. Drug information contained herein may be time sensitive. [employer] information has been compiled for use by healthcare practitioners and consumers in the [place] and therefore [employer] does not warrant that uses outside of the [place] are appropriate, unless specifically indicated otherwise. [employer]'s drug information does not endorse drugs, diagnose patients or recommend therapy. [employer] drug information is an informational resource designed [...] with your doctor, nurse or pharmacist. Copyright 9117-9306 [employer]. Version: 22.02. Revision Date: 08/06/2020. Emergency Awareness [...] Assistance with quitting is available by contacting 8-889-ITWL-NOW. This is a free resource providing counseling, [...] range between ( 0.0 and 7.0 ) Logan #: 0.41 K/uL -- Normal range between ( 0.16 and 1.00 ) Eos #: 0.10 x10(3)/uL -- Normal range between ( 0.00 and 0.80 ) Logan %: 7.5 % -- Normal range between [...] was given the opportunity to ask questions. Patient/Marina Manager Name: Patient/Marina Manager Signature: Relationship to Patient: Clinician/Hospital Marina Manager Signature: Date: Electronically signed by Donald, Asad Conversion Emergency Management Program Specialist Kamilahner at 10/14/2022 11:33 AM CDT documented in this encounter Plan of Treatment Not on file documented as of this encounter Visit Diagnoses Not on filedocumented in this encounter
--- OUTSIDE RECORDS SUMMARY | 2025-01-30 10:18 | XMS_ITS | Encounter Summary ---
Author Organization Healthcare Address [address] [place] [address] Care Team Providers Care Secondary History Teacher Name Role Phone Teo Dominguez MD Primary Care Provider + [phone] See Gann MD Unavailable [phone] Rufina Shrestha DDS Unavailable + Varinder Dey DMD Unavailable [phone] Encounter Details Date Type Department Care Team (Late st Contact Info) Description 02/08/2024 Orders Only External Location [address] [place] [address] Provider, External Social History Tobacco Use Types [...] documented as of this encounter Care Teams Secondary History Teacher Relationship Specialty Start Date End Date Teo Dominguez MD [address] [place] [address] PCP - General 11/08/20 See Gann MD [address] [place] [address] Surgeon Neurosurgery 01/07/21 Rufina Shrestha DDS [address] [place] [address] Dentist Dentist 08/19/22 Varinder Dey DMD [address] [place] [address] Dentist 08/19/22 documented as of this encounter
--- OUTSIDE RECORDS SUMMARY | 2025-01-30 10:18 | XMS_ITS | Encounter Summary ---
Author Organization Healthcare Address [address] [place] [address] Care Team Providers Care Section Leader Name Role Phone Teo Dominguez MD Primary Care Provider + [phone] See Gann MD Unavailable [phone] Rufina Shrestha DDS Unavailable + Varinder Dey DMD Unavailable [phone] Encounter Details Date Type Department Care Team (Late st Contact Info) Description 12/12/2024 Community [facility] Community Practice [address] [place] [address] Veronica Edmond MD [address] [place] [address] Social History Tobacco Use Types [...] documented as of this encounter Care Teams Section Leader Relationship Specialty Start Date End Date Teo Dominguez MD [address] [place], [place] [phone] PCP - General 11/08/20 See Gann MD [address] [place] [address] Surgeon Neurosurgery 01/07/21 Rufina Shrestha DDS [address] [place] [address] Dentist Dentist 08/19/22 Varinder Dey DMD [address] [place] [address] Dentist 08/19/22 documented as of this encounter
--- OUTSIDE RECORDS SUMMARY | 2025-01-30 10:18 | XMS_ITS | Encounter Summary ---
Author Organization Healthcare Address [address] [place] [address] Care Team Providers Care Solutions Architect Name Role Phone Teo Dominguez MD Primary Care Provider [phone] See Gann MD Unavailable [phone] Rufina Shrestha DDS Unavailable + Varinder Dey DMD Unavailable [phone] Reason for Referral * Consultation (Routine) - Closed Specialty Diagnoses / Procedures Referred By Contac t Referred To Contact Neurosurgery Diagnoses Abnormal MRI, spine Mehul Winston APRN [address] [place] [address] Phone: tel: fax: Referral ID Status Reason Start Date Expiration Date V isits Requested Visits Authorized [id number] Closed Specialty Services Required 12/05/2020 06/03/2021 1 1 Encounter Details Date Type Department Care Team (Late st Contact Info) Description 12/05/2020 Community [facility] Community Practice [address] [place] [address] Mehul Winston, BIRTH ATTENDANT [address] [place] [address] Abnormal MRI, spine (Primary Dx) Social History [...] Primary documented in this encounter Care Teams Solutions Architect Relationship Specialty Start Date End Date Teo Dominguez MD [address] [place] [phone] PCP - General 11/08/20 See Gann MD [address] [place] [address] Surgeon Neurosurgery 01/07/21 Rufina Shrestha DDS [address] [place] [address] Dentist Dentist 08/19/22 Varinder Dey DMD [address] [place] [address] Dentist 08/19/22 documented as of this encounter
--- NOTE | 2025-01-30 10:20 | CT_ITS ---
FINAL REPORT TECHNIQUE: The patient was injected with IV contrast. Axial images were obtained through the chest in a PE protocol. 3-D reconstruction images were also performed. Individualized dose reduction techniques using automated exposure control or adjustment of the MA and/or KV according to patient's size were employed. CLINICAL HISTORY: Chest pain, history of thoracic aneurysm COMPARISON: 09/17/2024 FINDINGS: Mediastinal vasculature is adequately opacified. No pulmonary artery filling defects are identified to suggest PE. The ascending aorta measures up to 4.0 cm in diameter. There is no axillary adenopathy. There is no hilar or mediastinal adenopathy. The heart size is normal. There is no pericardial or pleural effusion. Limited images of the upper abdomen are unremarkable. No suspicious infiltrate or nodule is identified. There are mild changes of centrilobular emphysema. IMPRESSION: Ascending aortic aneurysm measures 4 cm. Reviewed, Interpreted and Dictated by Bandar Payton MD Transcribed by Dyan Villavicencio Authenticated and [facility]
--- NOTE | 2025-01-30 10:24 | XR_ITS ---
FINAL REPORT CLINICAL HISTORY: SOA and CP COMPARISON: 08/01/2024 FINDINGS: SINGLE VIEW CHEST The heart is normal in size. The mediastinum is unremarkable. The lungs are clear. There is no pneumothorax. IMPRESSION: No acute process. Reviewed, Interpreted and Dictated by Bandar Payton MD Transcribed by Dyan Villavicencio Authenticated and [facility]
--- NOTE | 2025-01-30 10:25 | CT_ITS ---
FINAL REPORT TECHNIQUE: Axial CT images were performed through the head. Coronal reformatted images were submitted. This study was performed with techniques to keep radiation doses as low as reasonably achievable (ALARA). Individualized dose reduction techniques using automated exposure control or adjustment of mA and/or kV according to the patient's size were employed. CLINICAL HISTORY: Headache, hx of brain CA COMPARISON: 09/17/2024 FINDINGS: There are postsurgical changes from prior right occipital craniotomy. Findings are stable since prior. There is underlying encephalomalacia in the right cerebellar hemisphere. The ventricles are normal in size. There is no evidence of hemorrhage. There is no evidence of edema. There is a stable partially calcified mass in the right CP angle which is not optimally visualized measuring 2.0 x 1.2 cm. There is no abnormal extra-axial fluid seen. Extensive streak artifact is seen arising from the anterior right globe. There is mucoperiosteal thickening in the inferior frontal sinus consistent with chronic sinusitis. IMPRESSION: Stable postsurgical changes from right occipital craniotomy. Stable partially calcified mass in the right CP angle. Pre and post infused MRI may be of value. Reviewed, Interpreted and Dictated by Bandar Payton MD Transcribed by Dyan Villavicencio Authenticated and [facility]
[2025-01-30 10:30] LABS: Hematocrit 37.9 % (42.0-52.0); Hemoglobin 12.2 g/dL (14.1-18.0); Immature Granulocytes % 0.1 %; Mean Corpuscular HGB Conc 32.2 g/dL (31.8-35.4); Mean Corpuscular Hemoglobin 29.6 pg (27.0-31.2); Mean Corpuscular Volume 92.0 fl (80-94); Nucleated Red Blood Cells % 0 %; Platelet Count 172 K/mm3 (142-424); Red Blood Count 4.12 M/mm3 (4.60-6.20); Red Cell Distribution Width-SD 43.0 fL; White Blood Count 6.9 K/mm3 (4.8-10.8)
[2025-01-30 10:37] LABS: Albumin Level 3.7 g/dl (3.5-5.0); Chloride 105 mmol/L (98-107); Potassium 4.2 mmoL/L (3.5-5.1); Sodium 139 mmol/L (136-145)
[2025-01-30 10:40] LABS: Alanine Aminotransferase 16 U/L (12-78); Albumin/Globulin Ratio 1.1 (1.1-1.8); Alkaline Phosphatase 108 U/L (38-126); Anion Gap 8.2 mEq/L (5-15); Aspartate Amino Transferase 25 U/L (17-59); Bilirubin,Total 0.7 mg/dl (0.2-1.3); Blood Urea Nitrogen 13 mg/dl (9-20); Calcium 9.7 mg/dl (8.4-10.2); Carbon Dioxide 30 mmol/L (22.0-30.0); Creatinine Clearance Estimated 91 mL/min (50-200); Creatinine,Serum 0.90 mg/dl (0.66-1.25); Estimated Glomerular Filt Rate 83 ml/min (>60); GFR (African American) 101 ML/MIN (>60); Globulin 3.4 g/dL (1.3-3.2); Glucose 121 mg/dl (74-100); Total Protein,Serum 7.1 g/dl (6.3-8.2)
[2025-01-30] MEDS: HYDROCODONE/APAP 5/325 MG TABLET 1 TAB PO (10:43)
[2025-01-30] MEDS: ONDANSETRON 4MG/2ML VIAL 4 MG IV (10:43)
[2025-01-30 10:50] LABS: NT Pro Brain Natriuretic Pep. 172 pg/mL (0-125)
[2025-01-30 10:58] LABS: Troponin I < 0.01 ng/ml (0.00-0.034)
[2025-01-30] MEDS: SODIUM CHLORIDE 0.9% 10ML SYR (RAD ONLY) 10 ML IV (11:17)
[2025-01-30] MEDS: 0.9 % SODIUM CHLORIDE 50 ML VIAL IV (11:17)
[2025-01-30] MEDS: IOPAMIDOL-370 (76%);100ML BOTTLE 80 ML IV (11:18)
== END 2025-01-30 12:54 | disposition home or self-care (01) ==
PROVIDERS: Physician Assistant; Emergency Provider Student in an Organized Health Care Education/Training Program
DX: R07.89 Other chest pain (principal); R51.9 Headache, unspecified; I10 Essential (primary) hypertension; R06.02 Shortness of breath
CPT/HCPCS: 70450; 71045; 71275; 80053; 83880; 84484; 85025; 93005; 96374; 99285; J2405; Q9967

== ENCOUNTER 2025-04-03 11:14 | Outpatient (CLI) | payer MEDICARE, OTHER, SELFPAY ==
--- OUTSIDE RECORDS SUMMARY | 2025-03-19 13:14 | XMS_ITS | Encounter Summary ---
Author Organization Healthcare Address [address] [place] [address] Care Team Providers Care Risk Management Consultant Name Role Phone Teo Dominguez MD Primary Care Provider + [phone] See Gann MD Unavailable [phone] Rufina Shrestha DDS Unavailable + Varinder Dey DMD Unavailable [phone] Reason for Referral * Imaging (Routine) - Closed Specialty Diagnoses / Procedures Referred By Contac t Referred To Contact Radiology Diagnoses Infrarenal abdominal aortic aneurysm (AAA) without rupture (CMS/HCC) Procedures CT Angio Abdomen Pelvis Lan Gray MD [address] [address] Phone: tel: fax: Referral ID Status Reason Start Date Expiration Date Visits Re quested Visits Authorized [id number] Closed 03/01/2024 08/31/2025 1 1 Reason for Visit * Imaging (Routine) - Closed Specialty Diagnoses / Procedures Referred By Contac t Referred To Contact Radiology Diagnoses Infrarenal abdominal aortic aneurysm (AAA) without rupture (CMS/HCC) Procedures CT Angio Abdomen Pelvis Lan Gray MD [address] [address] Phone: tel: fax: Referral ID Status Reason Start Date Expiration Date Visits Re quested Visits Authorized [id number] Closed 03/01/2024 08/31/2025 1 1 Encounter Details Date Type Department Care Team (Latest Contact Info) Description 03/19/2025 1:14 PM EDT - 03/19/2025 11:59 PM EDT Hospital Encounter [facility] [address] [place] [address] Infrarenal abdominal aortic aneurysm (AAA) without rupture [...] mg) 1 (one) time each day. 10/27/2021 kvixwgld-xdgigwbrw-h examethamethasone (Polydex) 3.5-96522-8.1 ointment ophthalmic ointment 03/18/2023 omeprazole (PriLOSEC) 20 [...] Infrarenal abdominal aortic aneurysm (AAA) without rupture ([facility]) documented in this encounter Results * CT [...] documented as of this encounter Care Teams Risk Management Consultant Relationship Specialty Start Date End Date Teo Dominguez MD [address] [place] [address] PCP - General 11/08/20 See Gann MD [address] [facility] [address] [place] [address] Surgeon Neurosurgery 01/07/21 Ruifna Shrestha DDS [address] [place] [address] Dentist Dentist 08/19/22 Varinder Dey, MICHAEL [address] [place] [address] Dentist 08/19/22 documented as of this encounter
--- OUTSIDE RECORDS SUMMARY | 2025-03-19 14:40 | XMS_ITS | Encounter Summary ---
Author Organization Healthcare Address [address] [place] [address] Care Team Providers Care Color Strainer Name Role Phone Teo Dominguez MD Primary Care Provider + [phone] See Gann MD Unavailable [phone] Rufina Shrestha DDS Unavailable + Varinder Dey DMD Unavailable [phone] Reason for Referral * Imaging (Routine) - Pending Review Specialty Diagnoses / Procedures Referred By Akanksha valentino Referred To Contact Cardiology Diagnoses Infrarenal abdominal aortic aneurysm (AAA) without rupture (CMS/HCC) Procedures VAS US Aorta IVC Iliac Vessels Duplex Lan Gray MD [address] [address] Phone: tel: fax: Referral ID Status Reason Start Date Expiration Date Visits Requested Visits Authorized [id number] Pending Review Perform Procedure 03/19/2025 09/18/2026 1 1 Encounter Details Date Type Department Care Team (Latest Contact Info) Description 03/19/2025 2:40 PM EDT Office Visit [place] [facility] [address] [facility] 5th Floor [address] [place] [address] Lan Gray MD [id number] [place] [address] Infrarenal abdominal aortic aneurysm (AAA) [...] on aspirin and atorvastatin. 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 SOCIAL HISTORY Tobacco: No cigarette smoking for [...] long-term current use of insulin ([facility]) 02/25/2022 Hypertension 02/25/2022 Class 1 [...] patient's age of 69 years. The patient's paid search marketing analyst will be informed about the presence ofthe [...] documented as of this encounter Care Teams Color Strainer Relationship Specialty Start Date End Date Teo Dominguez MD [address] [place] [address] PCP - General 11/08/20 See Gann MD [address] [place] [address] Surgeon Neurosurgery 01/07/21 Rufina Shrestha DDS [address] [place] [address] Dentist Dentist 08/19/22 Varinder Dey DMD [address] [facility] [address] [place] [address] Dentist 08/19/22 documented as of this encounter
--- NOTE | 2025-04-03 | CA_ITS ---
APPROVED REPORT Exam: Pharmacologic Technologist: Karen Gabriel Stress Nurse: ROXANE Gillette, RN Ht: 5 ft 8 in Wt: 194 lbs BSA: 2.02 m2 HR: 51 bpm BP: 153/81 mmHg Stress Test Details Test: Lexiscan HR Resting HR: 51 bpm Max Heart Rate (APMHR): 149.089351 bpm Max HR Achieved: 98 bpm Target HR (85% APMHR): 126.298127 bpm % of APMHR: 65.77 Recovery HR: 71 bpm BP Resting BP: 153.0/81.0 mmHg Max BP: 188.0/110.0 mmHg Recovery BP: 160.0/89.0 mmHg ECG Resting ECG: Sinus bradycardia Stress ECG Conclusion Symptoms: Nausea/vomiting Arrhythmias/Ectopy: None ST-T Changes: Less than 0.[address] segment changes. Conclusion: Nondiagnostic ECG/Lexiscan Electronically signed by : Elisabeth Mayo MD 04/04/2025 22:56:30
--- OUTSIDE RECORDS SUMMARY | 2025-04-03 11:17 | XMS_ITS | Encounter Summary ---
Author Organization [employer] ([place], [place], [place], [place]) Address [address] [place] [address] Care Team Providers Care Primer Waterproofing Machine Adjuster Name Role Phone Unavailable Primary Care Provider Unavailabl e Encounter Details Date Type Department Care Team (Late st Contact Info) Description 10/30/2020 Transcribed Document [facility] [place] [address] [place] [address] ProviderChristina MD [address] [place], [place] [id number] Social History Tobacco Use Types Packs/Day Years [...] On: 10/30/2020 13:47 EDT by CATE KOHLER Joist Setter Primary Insurance Authorization Authorization and Policy Numbers : Insurance 1 Health Plan: [employer] P[employer] Policy Number: [id number] Authorization Number: Insurance 2 Health Plan: [facility] Policy Number: [id number] Authorization Number: Insurance Primary Name : [employer] PPO Policy Number: [id number] Authorization Status-Primary : Opo status approv Authorized Service Begin Date-Primary : 10/29/2020 EDT Observation Authorization Nbr-Primary : [id number] Authorization Comments-Primary : Submitted for and obtained OBS approval from [facility] OBS auth# [id number] Historical Authorization Comments-Primary : No Authorization Comments Found CATE KOHLER, Joist Setter - 10/30/2020 13:47 EDT documented in this encounter Plan of Treatment Not on file documented as of this encounter Visit Diagnoses Not on filedocumented in this encounter
--- OUTSIDE RECORDS SUMMARY | 2025-04-03 11:17 | XMS_ITS | Encounter Summary ---
Author Organization [employer] ([place], [place], [place], [place]) Address [address] [place] [address] Care Team Providers Care Lacquer Machine Feeder Name Role Phone Unavailable Primary Care Provider Unavailabl e Encounter Details Date Type Department Care Team (Late st Contact Info) Description 10/30/2020 Transcribed Document [facility] [place] [address] [place] [address] ProviderChristina MD [address] [place] [address] Social History Tobacco Use Types [...] EDT Treatment Time : 15 Minute(s) BALWINDER KWKO, PT - 10/30/2020 16:28 EDT History and [...] to Chair : Rehab Minimal assistance (Comment: MEDICAL TRANSCRIPTION with gait belt [BALWINDER KWOK, PT - [...] 10/30/2020 16:28 EDT Electronically signed by [facility] Conversion Skip Pitman Cerner at 10/14/2022 11:44 AM CDT documented in this encounter Plan of Treatment Not on file documented as of this encounter Visit Diagnoses Not on filedocumented in this encounter
--- OUTSIDE RECORDS SUMMARY | 2025-04-03 11:17 | XMS_ITS | Encounter Summary ---
Author Organization Healthcare Address [address] [place] [address] Care Team Providers Care Packing House Supervisor Name Role Phone Teo Dominguez MD Primary Care Provider + [phone] See Gann MD Unavailable [phone] Rufina Shrestha DDS Unavailable + Varinder Dey DMD Unavailable [phone] Encounter Details Date Type Department Care Team (Late st Contact Info) Description 04/17/2024 Orders Only External Location [address] [place] [address] Mehul Calderon MD [address] [address] Social History Tobacco Use Types [...] documented as of this encounter Care Teams Packing House Supervisor Relationship Specialty Start Date End Date Teo Dominguez MD [address] [place] [address] PCP - General 11/08/20 See Gann MD [address] [place] [address] Surgeon Neurosurgery 01/07/21 Rufina Shrestha DDS [address] [place] [address] Dentist Dentist 08/19/22 Varinder Dey DMD [address] [place] [address] Dentist 08/19/22 documented as of this encounter
--- OUTSIDE RECORDS SUMMARY | 2025-04-03 11:17 | XMS_ITS | Encounter Summary ---
Author Organization [employer] ([place], [place], [place], [place]) Address [address] [place] [address] Care Team Providers Care Residential Appliance Repair Technician Name Role Phone Unavailable Primary Care Provider Unavailabl e Encounter Details Date Type Department Care Team (Late st Contact Info) Description 10/31/2020 Transcribed Document [facility] [place] [address] [place] [address] ProviderChristina MD [address] [place] [address] Social History Tobacco Use Types [...]
--- OUTSIDE RECORDS SUMMARY | 2025-04-03 11:17 | XMS_ITS | Encounter Summary ---
Author Organization Healthcare Address [address] [place] [address] Care Team Providers Care Model Maker Fiberglass Name Role Phone Teo Dominguez MD Primary Care Provider + [phone] See Gann MD Unavailable [phone] Rufina Shrestha DDS Unavailable + Varinder Dey DMD Unavailable [phone] Encounter Details Date Type Department Care Team (Late st Contact Info) Description 02/08/2024 Orders Only External Location [address] [place] [address] Provider, External Social History Tobacco Use Types [...] documented as of this encounter Care Teams Model Maker Fiberglass Relationship Specialty Start Date End Date Teo Dominguez MD [address] [place] [address] PCP - General 11/08/20 See Gann MD [address] [place] [address] Surgeon Neurosurgery 01/07/21 Rufina Shrestha DDS [address] [place] [address] Dentist Dentist 08/19/22 Varinder Dey DMD [address] [place] [address] Dentist 08/19/22 documented as of this encounter
--- OUTSIDE RECORDS SUMMARY | 2025-04-03 11:17 | XMS_ITS | Encounter Summary ---
Author Organization [employer] ([place], [place], [place], [place]) Address [address] [place] [address] Care Team Providers Care Delivery Truck Driver Name Role Phone Unavailable Primary Care Provider Unavailabl e Encounter Details Date Type Department Care Team (Late st Contact Info) Description 10/31/2020 Transcribed Document [facility] [place] [address] [place] [address] ProviderChristina MD [address] [place] [id number] Social History Tobacco Use Types Packs/Day Years [...] Health Plan: [employer] PPO Policy Number: [id number] Authorization Number: Insurance 2 Health Plan: [facility] Policy Number: [id number] Authorization Number: Insurance Primary Name : [employer] PPO Policy Number: [id number] Authorization Status-Primary : Opo status approv Authorized Service Begin Date-Primary : 10/29/2020 EDT Observation Authorization Nbr-Primary : [id number] Historical Authorization Comments-Primary : Comment 1: Submitted for and obtained OBS approval from [facility] OBS auth# [id number] (CATE KOHLER, Hospital Admissions Officer 10/30/2020 13:47) Nasima Salgado Rn-Utilization Review - 10/31/2020 9:22 EDT Electronically signed by [facility] Conversion Language Specialist Cerner at 10/14/2022 11:25 AM CDT documented in this encounter Plan of Treatment Not on file documented as of this encounter Visit Diagnoses Not on filedocumented in this encounter
--- OUTSIDE RECORDS SUMMARY | 2025-04-03 11:17 | XMS_ITS | Encounter Summary ---
Author Organization [employer] ([place], [place], [place], [place]) Address [address] [place] [address] Care Team Providers Care Publication Editor Name Role Phone Unavailable Primary Care Provider Unavailabl e Encounter Details Date Type Department Care Team (Late st Contact Info) Description 10/29/2020 Transcribed Document [facility] [place] [address] [place] [address] ProviderChristina MD [address] [place] [address] Social History Tobacco Use Types [...]
--- OUTSIDE RECORDS SUMMARY | 2025-04-03 11:17 | XMS_ITS | Encounter Summary ---
Author Organization Healthcare Address [address] [place] [address] Care Team Providers Care Coal Equipment Operator Name Role Phone Teo Dominguez MD Primary Care Provider + [phone] See Gann MD Unavailable [phone] Rufina Shrestha DDS Unavailable + Varinder Dey DMD Unavailable [phone] Encounter Details Date Type Department Care Team (Late st Contact Info) Description 03/12/2025 Telephone [facility] [address] [place] [address] Suzanna Brooke, RN [facility] Social History Tobacco Use Types Packs/Day Years [...] as of this encounter Miscellaneous Notes * Telephone Encounter - Suzanna Brooke RN - 03/12/2025 1:28 PM EDT Patient Name: Gigi Nolan :1955 Date:03/12/2025 Affiliate site: [facility] Referring Physician: Jessica Romeo Education/ Information provided: n/a This Nurse Liaison left a voicemail message for Gigi Nolan prior to an appointment on 03/19/2025. Provided patient with liaison contact information and encouraged patient to call with any questions, concerns or assistance needs. Will follow up with patient after appointment. Suzanna Brooke, RN [facility] Nurse Liaison [phone] documented in this encounter Plan of Treatment [...] documented as of this encounter Care Teams Coal Equipment Operator Relationship Specialty Start Date End Date Teo Dominguez MD [address] [place], [place] [id number] PCP - General 11/08/20 See Gann MD [address] [place] [address] Surgeon Neurosurgery 01/07/21 Rufina Shrestha DDS [address] [place] [address] Dentist Dentist 08/19/22 Varinder Dey DMD [address] [place] [address] Dentist 08/19/22 documented as of this encounter
--- OUTSIDE RECORDS SUMMARY | 2025-04-03 11:17 | XMS_ITS | Encounter Summary ---
Author Organization [employer] ([place], [place], [place], [place]) Address [address] [place] [address] Care Team Providers Care Aircraft Steel Fabricator Name Role Phone Unavailable Primary Care Provider Unavailabl e Encounter Details Date Type Department Care Team (Late st Contact Info) Description 10/30/2020 Transcribed Document [facility] [place] [address] [place] [address] ProviderChristina MD [address] [place] [address] Social History Tobacco Use Types [...] Health Plan: [employer] PPO Policy Number: [id number] Authorization Number: Insurance 2 Health Plan: [employer] [facility] Policy Number: [id number] Authorization Number: Historical Authorization Comments-Primary : No Authorization Comments Found Nasima Salgado Rn-Utilization Review - 10/30/2020 13:21 EDT documented in this encounter Plan of Treatment Not on file documented as of this encounter Visit Diagnoses Not on filedocumented in this encounter
--- OUTSIDE RECORDS SUMMARY | 2025-04-03 11:17 | XMS_ITS | Encounter Summary ---
Author Organization Healthcare Address [address] [place] [address] Care Team Providers Care Hand Laster Name Role Phone Teo Dominguez MD Primary Care Provider + [phone] See Gann MD Unavailable [phone] Rufina Shrestha DDS Unavailable + Varinder Dey DMD Unavailable [phone] Encounter Details Date Type Department Care Team (Late st Contact Info) Description 09/17/2024 Orders Only External Location [address] [place] [address] Provider, External Social History Tobacco Use Types [...] documented as of this encounter Care Teams Hand Laster Relationship Specialty Start Date End Date Teo Dominguez MD [address] [place] [address] [phone] PCP - General 11/08/20 See Gann MD [address] [place] [address] Surgeon Neurosurgery 01/07/21 Rufina Shrestha DDS [address] [place] [address] Dentist Dentist 08/19/22 Varinder Dey DMD [address] [place] [address] Dentist 08/19/22 documented as of this encounter
--- OUTSIDE RECORDS SUMMARY | 2025-04-03 11:17 | XMS_ITS | Encounter Summary ---
Author Organization [employer] ([place], [place], [place], [place]) Address [address] [place] [address] Care Team Providers Care Heavy Duty Truck Mechanic Name Role Phone Unavailable Primary Care Provider Unavailabl e Encounter Details Date Type Department Care Team (Late st Contact Info) Description 10/30/2020 Transcribed Document [facility] [place] Family Medicine [address] [place] [address] ProviderChristina MD [address] [place] [address] Social History Tobacco Use Types [...]
--- OUTSIDE RECORDS SUMMARY | 2025-04-03 11:17 | XMS_ITS | Clinical Summary ---
Author Organization [facility] Address [address] [place] [address] Care Team Providers Care Merchandising Stock Associate Name Role Phone Teo Dominguez MD Primary Care Provider + [phone] See Gann MD Unavailable [phone] Rufina Shrestha DDS Unavailable + Varinder Dey DMD Unavailable [phone] Allergies Active Allergy Reactions Criticality Noted Date [...] (Flonase) 50 MCG/ACT nasal spray if needed. 2 Active LORazepam (Ativan) 0.5 MG tablet 1 tablet (0.5 mg) 2 (two) times a day if needed. 2 Active metoprolol succinate XL (Toprol-XL) 25 MG 24 hr tablet 1 tablet (25 mg) 1 (one) time each day. 2 Active omeprazole (PriLOSEC) [address] capsule 1 capsule (20 mg) 1 (one) time each day. 2 Active hydroCHLOROthiazid e (Microzide) 12.5 MG capsule 1 capsule (12.5 [...] (ZyrTEC) 10 MG tablet .COMPLEX 4 Active neomycin-polymyxin -dexamethamethason e (Polydex) 3.5-61725-3.1 ointment ophthalmic ointment 3 Active ondansetron ODT (Zofran-ODT) 4 MG disintegrating tablet 4 Active sucralfate (Carafate) 1 GM/10ML suspension 4 Active lidocaine (Lidoderm) 5 % patch Apply 1 patch topically daily. Remove & discard patch within 12 hours or as directed by MD. Active Active Problems Problem Noted Date Diagnosed [...] Encounters Date Type Department Care Team Description 03/19/2025 2:40 PM EDT Office Visit [facility] [address] [facility] 5th Floor [address] [place] [address] Lan Gray MD Infrarenal abdominal aortic aneurysm (AAA) without rupture (CMS/HCC) (Primary Dx) 03/19/2025 1:14 PM EDT - 03/19/2025 11:59 PM EDT Hospital Encounter [facility] [address] [place] [address] Infrarenal abdominal aortic aneurysm (AAA) without rupture (CMS/HCC) Discharge Disposition: Home or Self Care 03/19/2025 Travel 03/12/2025 Telephone [facility] [place] [address] [place] [address] Suzanna Brooke RN 02/06/2025 Orders Only [facility] [place] [address] [place] [address] Stefanie Tony, RN Abdominal aortic aneurysm (AAA) without rupture, unspecified part (CMS/HCC) (Primary Dx) from Last 3 Months Family History Medical History Relation Name Comments Conversions - Other Other Family h istory unknown Relation Name Status Comments Other Social History Tobacco Use Types Packs/Day Years Used Date Smoking Tobacco: Former Cigarettes 3 22 1 985 - 2007 Smokeless Tobacco: Never Tobacco Cessation:Counseling Given: No [...] F) 03/19/2025 2:48 PM EDT Respiratory Rate 16 12/21/2021 11:17 AM EDT Oxygen Saturation 99% 03/19/2025 2:48 PM EDT Inhaled Oxygen Concentration - - Weight 91.3 kg (201 lb 4.5 oz) 03/19/2025 2:48 P M EDT Height 172.7 cm (5' 7.99 ) 03/01/2024 11:18 AM E DT Body Mass Index 30.61 03/01/2024 11:18 AM EDT Plan of Treatment Health Maintenance Due Date Last Done Comments [facility]-Diabetes: Hemoglobin A1C 1953 [facility]-Hepatitis C Screening 1953 [facility]-Medicare Annual Wellness (AWV) 1953 [facility]-Infant/Child/Adol SDOH Screenings 1953 Diabetes: Dental Exam 1963 [facility]- SDOH Screenings 1971 [facility]-Adult SDOH Screenings 1971 [facility]-DTaP,Tdap,and Td Vaccines (1 - Tdap) 1972 [facility]-Pneumococcal Vaccine: 50+ Years (1 of 2 - PCV) 1972 CT Colonography 1998 Colonoscopy 1998 [facility]-DNA 1998 FIT 1998 FOBT 1998 Sigmoidoscopy 1998 [facility]-Colorectal Cancer Screening 1998 [facility]-Zoster Vaccines (1 of 2) 2003 [facility]-RSV Vaccine: 60+ Years or (1 - Risk 60-74 years 1-dose series) 2013 [facility]-Abdominal Aortic Aneurysm (AAA) Screening 2018 [id number]-XNFGU-44 Vaccine (3 - Moderna risk series) 04/04/2021 03/07/2021, 02/07/2021 [facility]-Depression Screening 12/01/2022 12/01/2021, 11/2021 [facility]-Influenza Vaccine (#1) 02/26/202505/02, 04/17/2020, 07/07/2019, Additional history exists [facility]-Obesity Intervention Completed 025, 03/01/2024, 08/17/2022, Additional history exists HPV Vaccines Aged Out [...] this topic Medical Devices Implanted Type Area Architect Manager Device Identifier Shelf Expiration Date Model / Serial / Lot Eye Gold Weight Eye Gold Weight Right: Ear 16mm (Prox) X 20mm (Distal) X 146mm Total Covered, Endurant Ii Aaa Contralateral Limb Stent Graft Implanted:Qty: 1 on 12/22/2021 by Lan Gray MD at [facility] Stent 08/20/2023 [id number] / [id number] / [id number] Description:Ref#[id number] Endurant Iis Bifurcated [id number] - [id number] Implanted:Qty: 1 on 12/19/2021 by Lan Gray MD at [facility] N/A: Aorta Medtronic [facility]-[id number] 07/08/2023 [id number] / [id number] / [id number] Endurant Ii Contra Limb [id number] - [id number] Implanted:Qty: 1 on 12/19/2021 by Lan Gray MD at [facility] Right: Arterial Medtronic [facility]-[id number] 07/16/2023 [id number] / [id number] / [id number] Procedures Procedure Name Priority Date/Time Associated Diagnosis Comments CT ANGIO ABDOMEN PELVIS Routine 03/19/2025 1:49 PM EDT Infrarenal abdominal aortic aneurysm (AAA) without rupture (CMS/HCC) from Last 3 Months Results * CT Angio Abdomen Pelvis (03/19/2025 [...] 2:15 PM Final report signed by Teo Logn MD on 03/19/2025 2:34 PM Narrative 03/19/2025 [...] renal cysts. Moderate prostatic enlargement. Procedure Note Toe Long MD - 03/19/2025 CLINICAL INDICATION: AORTIC [...] Gray MD IMG CT PROCEDURES Final Result from Last [address] [facility] MEDICAID [facility] MEDICARE Advance Directives * Full Code (Latest Code Status on File) Date Activated Date Inactivated Comments 12/19/2021 11:13 AM 12/21/2021 3:38 PM Question Answer Comments Patient has decision-making capacity? Yes Care Teams Merchandising Stock Associate Relationship Specialty Start Date End Date Teo [facility]ing[facility] [address] [facility] [address] PCP - General 11/08/20 See Gann MD [address] [facility] [address] [place] [address] Surgeon Neurosurgery 01/07/21 Rufina Shrestha DDS [address] [facility] [address] [place] [address] Dentist Dentist 08/19/22 Varinder Dey DMD [address] [place] [address] Dentist 08/19/22
--- OUTSIDE RECORDS SUMMARY | 2025-04-03 11:17 | XMS_ITS | Encounter Summary ---
Author Organization [employer] ([place], [place], [place], [place]) Address [address] [place] [address] Care Team Providers Care Chief Of Anesthesiology Name Role Phone Unavailable Primary Care Provider Unavailabl e Encounter Details Date Type Department Care Team (Late st Contact Info) Description 10/29/2020 Transcribed Document [facility] [place] Family Medicine [address] [place] [address] ProviderChristina MD [address] [place] [address] Social History Tobacco Use Types [...] #2 Relationship : n Primary Language : [place] Communication Barrier : None Otr [employer] Truck Driver Needed : No GO CALL RN - [...] Level : 46 or > High Risk [place] Fall Interventions : Adequate lighting, Assistive devices [...] Source : Stated Height Entry Format : [place] Height, Feet : 5 ft(Converted to: 152 cm, 60 Inch) Height, Inches : 8 Inch(Converted to: 0 ft 8 Inch, 20.32 cm) Clinical Height : 172.72 cm Weight Source : Standing scale Weight Entry Format : [place] Clinical Dosing Weight : 95.45 kg Weight, Pounds : 210 lb Body Surface Area (BSA) : 2.09 m2 Body Mass Index : 32 kg/m2 (HI) [place] Body Weight : 67 kg GO CALL [...] GO CALL RN - 10/29/2020 22:27 EDT [place] Suicide Severity Rating Scale (C-SSRS) CSSRS Past [...] 10/29/2020 22:27 EDT Electronically signed by Donald [facility] Conversion Scleroscope Tester Cerner at 10/14/2022 11:43 AM CDT documented in this encounter Plan of Treatment Not on file documented as of this encounter Visit Diagnoses Not on filedocumented in this encounter
--- OUTSIDE RECORDS SUMMARY | 2025-04-03 11:17 | XMS_ITS | Encounter Summary ---
Author Organization Healthcare Address [address] [place] [address] Care Team Providers Care Assistant Housekeeping Manager Name Role Phone Teo Dominguez MD Primary Care Provider + [phone] See Gann MD Unavailable [phone] Rufina Shrestha DDS Unavailable + Varinder Dey DMD Unavailable [phone] Reason for Referral * Consultation (Urgent) - Authorized Specialty Diagnoses / Procedures Referred By Contact Referred To Contact Vascular Surgery / Comprehensive [facility] Diagnoses Abdominal aortic aneurysm (AAA) without rupture, unspecified part ([facility]) Jessica Romeo APRN [address] [facility] [address] [place] [address] Phone: tel: fax: [facility] [address] [facility] 5th Floor [address] [place] [address] Phone: tel: fax: Referral ID Status Reason Start Date Expiration Date Visits Requested Visits Authorized [id number] Authorized Specialty Services Required 02/06/2025 08/08/2026 1 1 Encounter Details Date Type Department Care Team (Late st Contact Info) Description 02/06/2025 Orders Only [facility] [place] [address] [place] [address] Cecily, Crystal L, RN H[facility] ADMI Abdominal aortic aneurysm (AAA) without rupture, unspecified part (CMS/HCC) (Primary Dx) Social History Tobacco Use Types Packs/Day Years Used Date Smoking Tobacco: Former Cigarettes 3 19 07 982006 Smokeless Tobacco: Never Alcohol Use Standard Drinks/Week [...] encounter Miscellaneous Notes * Progress Notes - Stefanie Tony RN - 02/06/2025 11:32 AM EDT Referral to Vascular for AAA documented in this encounter Plan of Treatment Scheduled Referrals Name Type Priority Associated Diagnoses Orde r Schedule Ambulatory referral to Vascular Surgery Outpatient Referral Routine Abdominal aortic aneurysm (AAA) without rupture, unspecified part (CMS/HCC) Expected: 02/06/2025, Expires: 08/10/2026 documented as of this encounter Visit Diagnoses Diagnosis Abdominal aortic aneurysm (AAA) without rupture, unspecified part (CMS/HCC)- Primary documented in this encounter Additional Health Concerns Assessment Noted Time PHQ-9 Depression Total Score: 13 022 12:43 PM EDT A fall risk assessment has been complete d for the patient 02/23/2022 4:04 PM EDT A Body Mass Index follow-up plan has been documented for the patient 03/02/2024 9:10 AM EDT documented as of this encounter Care Teams Assistant Housekeeping Manager Relationship Specialty Start Date End Date Teo Dominguez MD [address] [place] [address] PCP - General 11/08/20 See Gann MD [address] [address] Surgeon Neurosurgery 01/07/21 Rufina Shrestha DDS [address] [facility] [address] [place] [address] Dentist Dentist 08/19/22 Varinder Dey DMD [address] [facility] [place] [address] Dentist 08/19/22 documented as of this encounter
--- OUTSIDE RECORDS SUMMARY | 2025-04-03 11:17 | XMS_ITS | Encounter Summary ---
Author Organization Healthcare Address [address] [place] [address] Care Team Providers Care Dip Tanker Name Role Phone Teo Dominguez MD Primary Care Provider + [phone] See Gann MD Unavailable [phone] Rufina Shrestha DDS Unavailable + Varinder Dye DMD Unavailable [phone] Encounter Details Date Type Department Care Team (Late st Contact Info) Description 02/08/2024 Orders Only External Location [address] [place] [address] Provider, External Social History Tobacco Use Types [...] documented as of this encounter Care Teams Dip Tanker Relationship Specialty Start Date End Date Teo Dominguez MD [address] [place] [address] PCP - General 11/08/20 See Gann MD [address] [place] [address] Surgeon Neurosurgery 01/07/21 Rufina Shrestha DDS [address] [place] [address] Dentist Dentist 08/19/22 Varinder Dey DMD [address] [place] [address] Dentist 08/19/22 documented as of this encounter
--- OUTSIDE RECORDS SUMMARY | 2025-04-03 11:17 | XMS_ITS | Referral Summary ---
Author Organization [employer] ([place], [place], [place], [place]) Address [address] [place] [address] Care Team Providers Care Hydraulic Riveter Name Role Phone Unavailable Primary Care Provider [...]
--- OUTSIDE RECORDS SUMMARY | 2025-04-03 11:17 | XMS_ITS | Encounter Summary ---
Author Organization Healthcare Address [address] [place] [address] Care Team Providers Care Director Medicare Sales Name Role Phone Teo Dominguez MD Primary Care Provider + [phone] See Gann MD Unavailable [phone] Rufina Shrestha DDS Unavailable + Varinder Dey DMD Unavailable [phone] Encounter Details Date Type Department Care Team (Late st Contact Info) Description 04/17/2024 Orders Only External Location [address] [place] [address] Provider, External Social History Tobacco Use Types [...] as of this encounter Care Teams Director Medicare Sales Relationship Specialty Start Date End Date Teo Dominguez MD [address] [place] [address] PCP - General 11/08/20 See Gann MD [address] [place] [address] Surgeon Neurosurgery 01/07/21 Rufina Shrestha DDS [address] [place] [address] Dentist Dentist 08/19/22 Varinder Dey DMD [address] [place] [address] Dentist 08/19/22 documented as of this encounter
--- OUTSIDE RECORDS SUMMARY | 2025-04-03 11:17 | XMS_ITS | Encounter Summary ---
Author Organization [employer] ([place], [place], [place], [place]) Address [address] [place] [address] Care Team Providers Care Remote Sensing Surveyor Name Role Phone Unavailable Primary Care Provider Unavailabl e Encounter Details Date Type Department Care Team (Late st Contact Info) Description 10/30/2020 Transcribed Document [facility] [place] Family Medicine [address] [place] [address] ProviderChristina MD [address] [place] [address] Social History Tobacco Use Types [...] KATHY STODDARD OTR/Gm - 10/30/2020 15:14 EDT Pin Cleaner Goals, OT Grooming LTG Grid Goal #1 [...]
--- OUTSIDE RECORDS SUMMARY | 2025-04-03 11:17 | XMS_ITS | Encounter Summary ---
Author Organization Healthcare Address [address] [place] [address] Care Team Providers Care Electric Motor Control Assembler Name Role Phone Teo Dominguez MD Primary Care Provider [phone] See Gann MD Unavailable [phone] Rufina Shrestha DDS Unavailable + Varinder Dey DMD Unavailable [phone] Reason for Referral * Consultation (Routine) - Closed Specialty Diagnoses / Procedures Referred By Contac t Referred To Contact Neurosurgery Diagnoses Abnormal MRI, spine Mehul Winston, IT DATA ARCHITECT [address] [place] [address] Phone: tel: fax: Referral ID Status Reason Start Date Expiration Date V isits Requested Visits Authorized [id number] Closed Specialty Services Required 12/05/2020 06/03/2021 1 1 Encounter Details Date Type Department Care Team (Late st Contact Info) Description 12/05/2020 Community [facility] [address] [place] [address] Mehul Winston, IT DATA ARCHITECT [address] [place] [address] Abnormal MRI, spine (Primary Dx) Social History [...] Primary documented in this encounter Care Teams Electric Motor Control Assembler Relationship Specialty Start Date End Date Teo Dominguez MD [address] [place] [phone] PCP - General 11/08/20 See Gann MD [address] [place] [address] Surgeon Neurosurgery 01/07/21 Rufina Shrestha DDS [address] [place] [address] Dentist Dentist 08/19/22 Varinder Dey DMD [address] [place] [address] Dentist 08/19/22 documented as of this encounter
--- OUTSIDE RECORDS SUMMARY | 2025-04-03 11:17 | XMS_ITS | Encounter Summary ---
Author Organization Healthcare Address [address] [place] [address] Care Team Providers Care Internal Grinder Name Role Phone Teo Dominguez MD Primary Care Provider + [phone] See Gann MD Unavailable [phone] Rufina Shrestha DDS Unavailable + Varinder Dey DMD Unavailable [phone] Encounter Details Date Type Department Care Team (Late st Contact Info) Description 12/12/2024 Community Orders Community Practice [address] [place] [address] Veronica Edmond MD [address] [place] [address] [place] [address] Social History Tobacco Use Types [...] documented as of this encounter Care Teams Internal Grinder Relationship Specialty Start Date End Date Teo Dominguez MD [address] [place], [place] [phone] PCP - General 11/08/20 See Gann MD [address] [place] [address] Surgeon Neurosurgery 01/07/21 Rufina Shrestha DDS [address] [place] [address] Dentist Dentist 08/19/22 Varinder Dey DMD [address] [place] [address] Dentist 08/19/22 documented as of this encounter
--- OUTSIDE RECORDS SUMMARY | 2025-04-03 11:17 | XMS_ITS | Encounter Summary ---
Author Organization [employer] ([place], [place], [place], [place]) Address [address] [place] [address] Care Team Providers Care Podiatry Assistant Name Role Phone Unavailable Primary Care Provider Unavailabl e Encounter Details Date Type Department Care Team (Late st Contact Info) Description 10/30/2020 Transcribed Document [facility] [place] [address] [place] [address] ProviderChristina MD [address] [place] [address] Social History Tobacco Use Types [...] Health Plan: [employer] PPO Policy Number: [id number] Authorization Number: Insurance 2 Health Plan: [facility] Policy Number: [id number] Authorization Number: Insurance Primary Name : [employer] PPO Policy Number: [id number] Authorized Service Begin Date-Primary : 10/29/2020 EDT Historical Authorization Comments-Primary : No Authorization Comments Found Nasima Salgado Rn-Utilization Review - 10/30/2020 13:38 EDT Electronically signed by Fred Bennett Conversion Telecommunications Linesworker Esdras at 10/14/2022 11:42 AM CDT documented in this encounter Plan of Treatment Not on file documented as of this encounter Visit Diagnoses Not on filedocumented in this encounter
--- OUTSIDE RECORDS SUMMARY | 2025-04-03 11:17 | XMS_ITS | Encounter Summary ---
Author Organization [employer] ([place], [place], [place], [place]) Address [address] [place] [address] Care Team Providers Care Antenna Machine Operator Name Role Phone Unavailable Primary Care Provider Unavailabl e Encounter Details Date Type Department Care Team (Late st Contact Info) Description 10/31/2020 Transcribed Document [facility] [place] Family Medicine [address] [place] [address] ProviderChristina MD [address] [place] [address] Social History Tobacco Use Types [...]
--- OUTSIDE RECORDS SUMMARY | 2025-04-03 11:17 | XMS_ITS | Encounter Summary ---
Author Organization Healthcare Address [address] [place] [address] Care Team Providers Care Intelligence Consultant Name Role Phone Teo Dominguez MD Primary Care Provider + [phone] See Gann MD Unavailable [phone] Rufina Shrestha DDS Unavailable + Varinder Dey DMD Unavailable [phone] Encounter Details Date Type Department Care Team (Late st Contact Info) Description 09/17/2024 Orders Only External Location [address] [place] [address] Provider, External Social History Tobacco Use Types [...] documented as of this encounter Care Teams Intelligence Consultant Relationship Specialty Start Date End Date Teo Dominguez MD [address] [place] [phone] PCP - General 11/08/20 See Gann MD [address] [place] [address] Surgeon Neurosurgery 01/07/21 Rufina Shrestha DDS [address] [place] [address] Dentist Dentist 08/19/22 Varinder Dey DMD [address] [place] [address] Dentist 08/19/22 documented as of this encounter
--- OUTSIDE RECORDS SUMMARY | 2025-04-03 11:17 | XMS_ITS | Encounter Summary ---
Author Organization [employer] ([place], [place], [place], [place]) Address [address] [place] [address] Care Team Providers Care Instructor Painting Name Role Phone Unavailable Primary Care Provider Unavailabl e Encounter Details Date Type Department Care Team (Late st Contact Info) Description 10/30/2020 Transcribed Document [facility] [place] [address] [place] [address] ProviderChristina MD [address] [place] [address] Social History Tobacco Use Types [...] a seizure disorder. Clinical correlation is advised. /[id number] Zack Henderson MD WSB/AQ / WSB / MODL /[id number] documented in this encounter Plan of Treatment Not on file documented as of this encounter Visit Diagnoses Not on filedocumented in this encounter
--- OUTSIDE RECORDS SUMMARY | 2025-04-03 11:17 | XMS_ITS | Encounter Summary ---
Author Organization Healthcare Address [address] [place] [address] Care Team Providers Care Irrigationist Designer Name Role Phone Teo Dominguez MD Primary Care Provider + [phone] See Gann MD Unavailable [phone] Rufina Shrestha DDS Unavailable + Varinder Dey DMD Unavailable [phone] Encounter Details Date Type Department Care Team (Latest Contact Info) Description 03/19/2025 Travel Social History Tobacco Use Types Packs/Day Years Used Date Smoking Tobacco: Former Cigarettes 3 5 - 2006 Smokeless Tobacco: Never Alcohol Use [...] 1 Month) No 025 2:53 PM EDT Carleen Morales RN 2. Non-Specific Active Suici florecita Thoughts (Past 1 Month) No 03/19/2025 2:53 PM EDT Morales, Carleen G, RN 6. Suicidal Behavior (Lifetime) No 5 2:53 PM EDT Carleen Morales RN documented as of this encounter Plan of [...] documented as of this encounter Care Teams Irrigationist Designer Relationship Specialty Start Date End Date Teo Dominguez MD [address] [place], [place] [phone] PCP - General 11/08/20 See Gann MD [address] [place] [address] Surgeon Neurosurgery 01/07/21 Rufina Shrestha DDS [address] [place] [address] Dentist Dentist 08/19/22 Varinder Dey DMD [address] [place] [address] Dentist 08/19/22 documented as of this encounter
--- OUTSIDE RECORDS SUMMARY | 2025-04-03 11:17 | XMS_ITS | Encounter Summary ---
Author Organization Healthcare Address [address] [place] [address] Care Team Providers Care Cash Person Name Role Phone Teo Dominguez MD Primary Care Provider + [phone] See Gann MD Unavailable [phone] Rufina Shrestha DDS Unavailable + Varinder Dey DMD Unavailable [phone] Encounter Details Date Type Department Care Team (Late st Contact Info) Description 02/08/2024 Orders Only External Location [address] [place] [address] Provider, External Social History Tobacco Use Types [...] documented as of this encounter Care Teams Cash Person Relationship Specialty Start Date End Date Teo Dominguez MD [address] [place] [id number] PCP - General 11/08/20 See Gann MD [address] [place] [address] Surgeon Neurosurgery 01/07/21 Rufina Shrestha DDS [address] [place] [address] Dentist Dentist 08/19/22 Varinder Dey DMD [address] [place] [address] Dentist 08/19/22 documented as of this encounter
--- OUTSIDE RECORDS SUMMARY | 2025-04-03 11:17 | XMS_ITS | Encounter Summary ---
Author Organization [employer] ([place], [place], [place], [place]) Address [address] [place] [address] Care Team Providers Care Roll Builder Name Role Phone Unavailable Primary Care Provider Unavailabl e Encounter Details Date Type Department Care Team (Late st Contact Info) Description 10/31/2020 Transcribed Document [facility] [place] Medicine [address] [place] [address] ProviderChristina MD [address] [place] [address] Social History Tobacco Use Types [...] with your condition: Managing pain ??? Take dzkr-qxr-zbbeazs and prescription medicines only as told by [...] provider. Document Revised: 01/02/2019 Document Reviewed: 01/02/2019 [employer] Patient Education ? 2020 [employer] documented in this encounter Plan of Treatment Not on file documented as of this encounter Visit Diagnoses Not on filedocumented in this encounter
--- OUTSIDE RECORDS SUMMARY | 2025-04-03 11:17 | XMS_ITS | Encounter Summary ---
Author Organization Healthcare Address [address] [place] [address] Care Team Providers Care Door Hanger Name Role Phone Teo Dominguez MD Primary Care Provider + [phone] See Gann MD Unavailable [phone] Rufina Shrestha DDS Unavailable + Varinder Dey DMD Unavailable [phone] Encounter Details Date Type Department Care Team (Late st Contact Info) Description 09/17/2024 Orders Only External Location [address] [place] [address] Provider, External Social History Tobacco Use Types [...] documented as of this encounter Care Teams Door Hanger Relationship Specialty Start Date End Date Teo Dominguez MD [address] [place] [address] [phone] PCP - General 11/08/20 See Gann MD [address] [place] [address] Surgeon Neurosurgery 01/07/21 Rufina Shrestha DDS [address] [place] [address] Dentist Dentist 08/19/22 Varinder Dey DMD [address] [place] [address] Dentist 08/19/22 documented as of this encounter
--- OUTSIDE RECORDS SUMMARY | 2025-04-03 11:17 | XMS_ITS | Encounter Summary ---
Author Organization [employer] ([place], [place], [place], [place]) Address [address] [place] [address] Care Team Providers Care Rail Assembler Name Role Phone Unavailable Primary Care Provider Unavailabl e Encounter Details Date Type Department Care Team (Late st Contact Info) Description 10/29/2020 Transcribed Document [facility] [place] [facility] [place] [address] ProviderChristina MD [address] [id number] Social History Tobacco Use Types Packs/Day Years [...] iv fluids and toradol and transferred to [facility] for further evaluation. Health Status [...] At risk for sleep apnea / IMO [id number] / Confirmed, Active Problems (1) At risk [...] facial droop. eomi, tongue protrudes midline. 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 hard of hearing. [...] record reviewed, no family present Code status: converting supervisor spent: 45 min [facility] Hospitalist Physical Examination VS/Measurements No qualifying data available Review / Management Results review: No qualifying data available. documented in this encounter Plan of Treatment Not on file documented as of this encounter Visit Diagnoses Not on filedocumented in this encounter
--- OUTSIDE RECORDS SUMMARY | 2025-04-03 11:17 | XMS_ITS | Encounter Summary ---
Author Organization [employer] ([place], [place], [place], [place]) Address [address] [place] [address] Care Team Providers Care Regional Driver Name Role Phone Unavailable Primary Care Provider Unavailabl e Encounter Details Date Type Department Care Team (Late st Contact Info) Description 10/30/2020 Transcribed Document [facility] [place] [address] [place] [address] ProviderChristina MD [address] [place], [place] [phone] Social History Tobacco Use Types Packs/Day Years [...] room Neurodiagnostic Event Details : Procedure completed ACRLOTA MORLEY Neurodiagnostic Tech - 10/30/2020 13:16 EDT documented in this encounter Plan of Treatment Not on file documented as of this encounter Visit Diagnoses Not on filedocumented in this encounter
--- OUTSIDE RECORDS SUMMARY | 2025-04-03 11:17 | XMS_ITS | Encounter Summary ---
Author Organization [employer] ([place], [place], [place], [place]) Address [address] [place] [address] Care Team Providers Care Oracle Soa Developer Name Role Phone Unavailable Primary Care Provider Unavailabl e Encounter Details Date Type Department Care Team (Late st Contact Info) Description 10/30/2020 Transcribed Document [facility] [place] Medicine [facility] [place] [address] ProviderChristina MD [address] [place] [address] Social History Tobacco Use Types [...] hospital yesterday from the emergency room at [facility] for headaches and syncope, and I [...] the left. He decided to come to [facility] Emergency Room, where he was given [...] hydrocodone. SOCIAL HISTORY: The patient lives in [place] by himself, he . 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 He uses a [...] tongue, however, protrudes midline. Coordination shows intact eqgeyt-tk-ttok and qlfg-dp-mlgk bilaterally. Gait was not tested. DIAGNOSTIC STUDIES: IMAGING STUDIES: He had a CTA of the head and neck at [facility] yesterday. The CTA of the head showed no large vessel occlusion. 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 The patient had a CTA of the neck that was normal. The patient had a CT scan of his head at [facility] that suggested calcification of the right [...] of the head and neck done at [facility]. I have asked the staff to [...] artery appeared diffusely small throughout its course. /[id number] MD MAR Kulkarni/AQ / MAR / MODL /[id number] documented in this encounter Plan of Treatment Not on file documented as of this encounter Visit Diagnoses Not on filedocumented in this encounter
--- OUTSIDE RECORDS SUMMARY | 2025-04-03 11:17 | XMS_ITS | Clinical Summary ---
Author Organization [employer] ([place], [place], [place], [place]) Address [address] [place] [address] Care Team Providers Care Cardroom Worker Name Role Phone Unavailable Primary Care [...]
--- OUTSIDE RECORDS SUMMARY | 2025-04-03 11:18 | XMS_ITS | Encounter Summary ---
Author Organization [employer] ([place], [place], [place], [place]) Address [address] [place] [address] Care Team Providers Care Pearl Peller Name Role Phone Unavailable Primary Care Provider Unavailabl e Encounter Details Date Type Department Care Team (Late st Contact Info) Description 10/30/2020 Transcribed Document [facility] [place] Family Medicine [address] [place] [address] ProviderChristina MD [address] [place] [address] Social History Tobacco Use Types [...] On: 10/30/2020 11:07 EDT by PRIETO MILLS RN-Telephoto Engineer Initial Assessment I Previously Documented Living Environment [...] Is Guardianship Needed : No PRIETO MILLS RN-Telephoto Engineer - 10/30/2020 11:07 EDT Initial Assessment II Sensory and Motor Deficits : None Current Home Treatments and Equipment : None PRIETO MILLS RN-Telephoto Engineer - 10/30/2020 11:07 EDT Discharge Needs I Anticipated Discharge Date : 10/31/2020 EDT Anticipated Discharge To, CM : Home with family care Current Home Treatment/Equipment : Current Home Treatment/Equipment No qualifying data available. Post Acute/Home Treatments : None Documentation Status Complete : Yes PRIETO MILLS RN-Telephoto Engineer - 10/30/2020 11:07 EDT Discharge Needs II Professional Skilled Services : Professional Skilled Services No qualifying data available. Needs Assistance with Transportation : No PRIETO MILLS RN-Telephoto Engineer - 10/30/2020 11:07 EDT Narrative Note Narrative Note : Received from outside facility to here due to headache, placed in observation. Neurology has been consulted. Met with Pt at the bedside. Role of CM explained. Pt states that he is ADL independent, lives home alone, but has his italian yeager (like my service dog). Plans are to return home when discharged. Pt states that he has bulging discs and wonders if these are causing his issues. No needs anticipated/verbalized at this time. RRS is low @ 31, boost 5. CM will follow. PRIETO MILLS RN-Telephoto Engineer - 10/30/2020 11:07 EDT documented in this encounter Plan of Treatment Not on file documented as of this encounter Visit Diagnoses Not on filedocumented in this encounter
--- OUTSIDE RECORDS SUMMARY | 2025-04-03 11:18 | XMS_ITS | Encounter Summary ---
Author Organization [employer] ([place], [place], [place], [place]) Address [address] [place] [address] Care Team Providers Care Foundation Coordinator Name Role Phone Unavailable Primary Care Provider Unavailabl e Encounter Details Date Type Department Care Team (Late st Contact Info) Description 10/30/2020 Transcribed Document [facility] [place] Family Medicine [address] [place] [address] ProviderChristina MD [address] [place] [address] Social History Tobacco Use Types [...] 10/30/2020 12:24 EDT Electronically signed by [facility] Conversion V/Stol Landing Signal Officer Cerner at 10/14/2022 11:48 AM CDT documented in this encounter Plan of Treatment Not on file documented as of this encounter Visit Diagnoses Not on filedocumented in this encounter
--- OUTSIDE RECORDS SUMMARY | 2025-04-03 11:18 | XMS_ITS | Encounter Summary ---
Author Organization [employer] ([place], [place], [place], [place]) Address [address] [place] [address] Care Team Providers Care Beef Trimmer Name Role Phone Unavailable Primary Care Provider Unavailabl e Encounter Details Date Type Department Care Team (Late st Contact Info) Description 10/31/2020 Transcribed Document [facility] [place] Family Medicine [address] [place] [address] ProviderChristina MD [address], [place] [phone] Social History Tobacco Use Types Packs/Day Years [...] PHYSICAL THERAPIST NON-EXEMPT - 10/31/2020 16:28 EDT Passenger Brakeman Goals Mobility/Bed Mobility LTG PT Grid Goal [...]
--- OUTSIDE RECORDS SUMMARY | 2025-04-03 11:18 | XMS_ITS | Encounter Summary ---
Author Organization [employer] ([place], [place], [place], [place]) Address [address] [place] [address] Care Team Providers Care Java Xml Developer Name Role Phone Unavailable Primary Care Provider Unavailabl e Encounter Details Date Type Department Care Team (Late st Contact Info) Description 10/31/2020 Transcribed Document [facility] [place] [address] [place] [address] ProviderChristina MD [address] [place] [address] Social History Tobacco Use Types [...] Jarvis MD - 10/31/2020 1:15 PM CDT [facility] [address] SHANNAN SAMANIEGO SR :1955 Visit Time:10/29/2020 Your Visit Summary Your Care Team Admitting Physician - SHIVANI BERMUEDZ DO-INT Attending Physician - JEMIMA SALAZAR MD-FAM [...] call for a follow up appointment with [facility] Neurology. Where: [address] [facility] [address] [place] [address]- Business (1) Medications What How Much When Instructions Next Dose acetaminophen/ butalbital/ caffeine (Fioricet oral capsule) 1 Capsule(s) Oral Every 6 Hours as needed for Headache Duration: 3 Day(s) Printed Prescription atorvastatin (atorvastatin 40 mg oral tablet) 1 Tablet(s) Oral Every Day Duration: 90 Day(s) Pickup at [facility] sucralfate (Carafate 1 g/ 10 mL oral suspension) 10 Milliliter(s) Oral Before Meals Pickup at [facility] LORazepam (LORazepam 0.5 mg oral tablet) [...] Hours as needed for Nausea Pharmacy Information [facility]: [address] [facility] [address] [place], [place] [phone] Take your medications faithfully. Do NOT skip [...] with your condition: Managing pain ??? Take hidp-byg-jalfftx and prescription medicines only as told by [...] provider. Document Revised: 01/02/2019 Document Reviewed: 01/02/2019 [employer] Patient Education ?? 2020 [employer]. acetaminophen, butalbital, and caffeine (a SEET a [...] Acetaminophen is a pain reliever and fever operations controller. Butalbital is in a group of drugs [...] may report side effects to FDA at 2-224-BQL-5506. What other drugs will affect acetaminophen, butalbital, [...] acetaminophen, butalbital, and caffeine, including prescription and trvj-rtk-tovippb medicines, vitamins, and herbal products. Tell each [...] to ensure that the information provided by [employer]. ('[employer]') is accurate, up-to-date, and complete, but no guarantee is made to that effect. Drug information contained herein may be time sensitive. emotion.me information has been compiled for use by healthcare practitioners and consumers in the [place] and therefore [employer]me does not warrant that uses outside of the [place] are appropriate, unless specifically indicated otherwise. [employer] drug information does not endorse drugs, diagnose patients or recommend therapy. [employer] drug information is an informational resource designed [...] effective or appropriate for any given patient. [employer] does not assume any responsibility for any aspect of healthcare administered with the aid of information emotion[employer]me provides. The information contained herein is not intended to cover all possible uses, directions, precautions, warnings, drug interactions, allergic reactions, or adverse effects. If you have questions about the drugs you are taking, check with your doctor, nurse or pharmacist. Copyright 1159-4242 [employer]. Version: 6.02. Revision Date: 07/22/2015. sucralfate (oral) [...] may report side effects to FDA at 6-068-MEM-7505. What other drugs will affect sucralfate? Other drugs may affect sucralfate, including prescription and jgws-cgq-httzxyc medicines, vitamins, and herbal products. Tell your [...] to ensure that the information provided by [employer]. ('[employer]') is accurate, up-to-date, and complete, but no guarantee is made to that effect. Drug information contained herein may be time sensitive. emotion[employer]me information has been compiled for use by healthcare practitioners and consumers in the [place] and therefore [employer]me does not warrant that uses outside of the [place] are appropriate, unless specifically indicated otherwise. [employer] drug information does not endorse drugs, diagnose patients or recommend therapy. [employer] drug information is an informational resource designed [...] effective or appropriate for any given patient. [employer] does not assume any responsibility for any aspect of healthcare administered with the aid of information emotion[employer]me provides. The information contained herein is not intended to cover all possible uses, directions, precautions, warnings, drug interactions, allergic reactions, or adverse effects. If you have questions about the drugs you are taking, check with your doctor, nurse or pharmacist. Copyright 0463-4797 [facility] [employer]. Version: 03.28. Revision Date: 08/29/2020. atorvastatin (a [...] may report side effects to FDA at 0-456-DTV-2656. What other drugs will affect atorvastatin? Certain [...] may affect atorvastatin. This includes prescription and jarm-har-qgvqrkw medicines, vitamins, and herbal products. Not all [...] to ensure that the information provided by [employer]. ('[employer]') is accurate, up-to-date, and complete, but no guarantee is made to that effect. Drug information contained herein may be time sensitive. [employer]me information has been compiled for use by healthcare practitioners and consumers in the [place] and therefore [employer]me does not warrant that uses outside of the [place] are appropriate, unless specifically indicated otherwise. [employer]'s drug information does not endorse drugs, diagnose patients or recommend therapy. [employer] drug information is an informational resource designed [...] with your doctor, nurse or pharmacist. Copyright 7404-7096 [employer]. Version: 22.02. Revision Date: 08/06/2020. Emergency Awareness [...] Assistance with quitting is available by contacting 4-360-NWJQ-NOW. This is a free resource providing counseling, [...] range between ( 0.0 and 7.0 ) [place] #: 0.41 K/uL -- Normal range between ( 0.16 and 1.00 ) [place] #: 0.10 x10(3)/uL -- Normal range between ( 0.00 and 0.80 ) [place] %: 7.5 % -- Normal range between [...] was given the opportunity to ask questions. Patient/Hadoop Consultant Name: Patient/Hadoop Consultant Signature: Relationship to Patient: Clinician/Hospital Hadoop Consultant Signature: Date: documented in this encounter Plan of Treatment Not on file documented as of this encounter Visit Diagnoses Not on filedocumented in this encounter
--- OUTSIDE RECORDS SUMMARY | 2025-04-03 11:18 | XMS_ITS | Encounter Summary ---
Author Organization [employer] ([place], [place], [place], [place]) Address [address] [place] [address] Care Team Providers Care Pierce And Shave Press Operator Name Role Phone Unavailable Primary Care Provider Unavailabl e Encounter Details Date Type Department Care Team (Late st Contact Info) Description 10/31/2020 Transcribed Document [facility] [place] [address] [place] [address] ProviderChristina MD [address], [place] [phone] Social History Tobacco Use Types Packs/Day Years [...] On: 10/31/2020 13:45 EDT by PRIETO MILLS RN-Network Support Administrator Final Discharge Planning Discharge Arrangements : Patient [...] : Yes Discharge To Care Management : Home/Residential/Snf or Self Care -01 PRIETO MILLS RN-Network Support Administrator - 10/31/2020 13:45 EDT Final Narrative Note Final Narrative Note : Discharged to home, agreeable. No needs verbalized at this time. PRIETO MILLS RN-Network Support Administrator - 10/31/2020 13:45 EDT documented in this encounter Plan of Treatment Not on file documented as of this encounter Visit Diagnoses Not on filedocumented in this encounter
[2025-04-03] MEDS: SODIUM CHLORIDE 0.9% 10ML SYR (RAD ONLY) 10 ML IV ×2 (11:25→13:15)
--- NOTE | 2025-04-03 11:30 | NM_ITS ---
APPROVED REPORT Exam: Nuclear Stress Test Indication: cad, h/o mi, htn, diabetes, hyperlipidemia, fm hx, c.p., sob, fatigue Patient Location: Outpatient Stress Tech: Karen Gabriel [place] Tech:Swetha Jang, ARRT RT (R)(N)(M) Ht: 5 ft 8 in Wt: 210 lbs HR: 51 bpm BP: 153/81 mmHg BSA: 2.09 m2 TID: 1.07 BMI: 31.9 History: cad, h/o mi, htn, diabetes, hyperlipidemia, fm hx, c.p., sob, fatigue Procedure: Patient received 0.4 mg of intravenous Lexiscan, resting heart rate 51 bpm, resting blood pressure 153/81 mmHg, with Lexiscan maximum heart rate achieved was 90 bpm which is % of the maximum predicted heart rate and blood pressure was 180/106 mmHg. With Lexiscan, patient denied any complaint of chest pain. Cardiac Stress and Resting SPECT Images: Cardiac Stress and Resting SPECT images were obtained using technetium 99m Myoview 31.6 mCi stress and 10.73 mCi at rest. Raw images demonstrate significant soft tissue overlap of the cardiac borders. This may affect diagnostic interpretation of the study findings. Resting and stress imaging in supine positions demonstrate a large sized, moderate, fixed perfusion defect in the inferior LV wall. This is no longer visualized with prone stress imaging. Findings are suggestive of diaphragmatic attenuation. Gated imaging demonstrates normal global and regional LV systolic function. LVEF is calculated at 54%. Conclusion: Technically difficult study. Diaphragmatic attenuation is present. No evidence of fixed or reversible perfusion defects. Gated imaging demonstrates normal global and regional LV systolic function. LVEF is calculated at 54%. Electronically signed by : Elisabeth Mayo MD 04/04/2025 23:02:08
[2025-04-03 12:45] VITALS: BP 153/81; PULSE 51; RESP 14
--- NOTE | 2025-04-03 13:45 | CA_ITS ---
APPROVED REPORT EXAM: Comprehensive 2D, Doppler, and color-flow Echocardiogram Shot Hole Driller: Vane Hurd RDCS Ht: 5 ft 8 in Wt: 194lbs BSA: 2.02 BP: 128/93 mmHg Indications: Chest Pain, Shortness of Breath, CVA/TIA, Diabetes, Fatigue, Peripheral Edema, CAD, Hyperlipidemia, Hypertension/HDD M-Mode Dimensions RVDd 3.05 cm (0.9-2.6) LA Diam 4.05 cm (1.9-4.0) LVDd 5.60 cm (3.5-5.7) LVDs 4.45 cm (3.5-5.7) IVSd 0.64 cm (0.6-1.1) PWd 0.89 cm (0.6-1.1) EF (Teich) 41.40% FS 20.50% EDV (Teich) 153.70 mL TAPSE 1.75 (<1.7) ESV (Teich) 90.10 mL LV Diastology E Decel Time 223 (160-240 msec) E/A Ratio 1.14 Mitral Valve MV E Max Robert. 84.0 (40-130 cm/s) MV A Velocity 73.0 (40-130 cm/s) E/A Ratio 1.14 MV PHT 65.0 ms Left Ventricle The left ventricle is normal size. Left ventricular systolic function is normal. The left ventricular ejection fraction is within the normal range. There is normal left ventricular wall thickness. There is normal LV segmental wall motion. The left ventricular diastolic function is normal. LVEF is 55% Right Ventricle The right ventricle is normal size. The right ventricular systolic function is normal. Atria The left atrium size is normal. The right atrium size is normal. There is no color Doppler evidence of interatrial shunt. Aortic Valve The aortic valve is mildly thickened. There is no hemodynamically significant aortic valvular stenosis. No aortic regurgitation is present. Mitral Valve The mitral valve is normal in structure. No evidence of mitral valve stenosis. Trace mitral regurgitation is present. Tricuspid Valve The tricuspid valve leaflets are thin and pliable. Trace tricuspid regurgitation. There is insufficient TR jet to estimate RVSP. Pulmonic Valve The pulmonary valve is grossly normal in structure. Trace pulmonic valve regurgitation is present. Great Vessels The aortic root is normal in size. The ascending aorta is mildly dilated, measuring 4.1 cm in diameter. IVC is normal in size and collapses >50% with inspiration. Pericardium There is no pericardial effusion. Other Information Study Quality: Fair Conclusion Normal biventricular systolic function. No significant valvular stenosis or regurgitation. The ascending aorta is mildly dilated, measuring 4.1 cm in diameter. Correlation with new or recent CTA chest is suggested. Electronically signed by : Elisabeth Mayo MD 04/08/2025 16:38:56
[2025-04-03] MEDS: ISOTOPE MYOVIEW (PER STUDY) 1 DOSE IV (14:14)
== END 2025-04-03 23:59 | disposition home or self-care (01) ==
LOC: RAD 11:15
PROVIDERS: PCP Nurse Practitioner Family; Visit Provider Nurse Practitioner
DX: I11.9 Hypertensive heart disease without heart failure (principal); I63.9 Cerebral infarction, unspecified; G45.9 Transient cerebral ischemic attack, unspecified; E11.9 Type 2 diabetes mellitus without complications; I25.10 Atherosclerotic heart disease of native coronary artery without angina pectoris; E78.5 Hyperlipidemia, unspecified
CPT/HCPCS: 78452; 93017; 93018; 93306; A9502; J2785

== ENCOUNTER 2025-04-13 15:11 | Outpatient (CLI) | payer MEDICARE, SELFPAY ==
--- OUTSIDE RECORDS SUMMARY | 2025-03-19 13:14 | XMS_ITS | Encounter Summary ---
Author Organization Healthcare Address [address] [place] [address] Care Team Providers Care Machine Stoppage Frequency Checker Name Role Phone Teo Dominguez MD Primary Care Provider + [phone] See Gann MD Unavailable [phone] Rufina Shrestha DDS Unavailable + Varinder Dey DMD Unavailable [phone] Reason for Referral * Imaging (Routine) - Closed Specialty Diagnoses / Procedures Referred By Contac t Referred To Contact Radiology Diagnoses Infrarenal abdominal aortic aneurysm (AAA) without rupture (CMS/HCC) Procedures CT Angio Abdomen Pelvis Lan Gray MD [address] [address] Phone: tel: fax: Referral ID Status Reason Start Date Expiration Date Visits Re quested Visits Authorized [id number] Closed 03/01/2024 08/31/2025 1 1 Reason for Visit * Imaging (Routine) - Closed Specialty Diagnoses / Procedures Referred By Contac t Referred To Contact Radiology Diagnoses Infrarenal abdominal aortic aneurysm (AAA) without rupture (CMS/HCC) Procedures CT Angio Abdomen Pelvis Lan Gray MD [address] [address] Phone: tel: fax: Referral ID Status Reason Start Date Expiration Date Visits Re quested Visits Authorized [id number] Closed 03/01/2024 08/31/2025 1 1 Encounter Details Date Type Department Care Team (Latest Contact Info) Description 03/19/2025 1:14 PM EDT - 03/19/2025 11:59 PM EDT Hospital Encounter [facility] [address] [place] [address] Infrarenal abdominal aortic aneurysm (AAA) without rupture [...] mg) 1 (one) time each day. 10/27/2021 wppugkyw-ughzlxmmf-e examethamethasone (Polydex) 3.5-98706-7.1 ointment ophthalmic ointment 03/18/2023 omeprazole (PriLOSEC) 20 [...] Infrarenal abdominal aortic aneurysm (AAA) without rupture ([facility]) documented in this encounter Results * CT [...] documented as of this encounter Care Teams Machine Stoppage Frequency Checker Relationship Specialty Start Date End Date Teo Dominguez MD [address] [place] [address] PCP - General 11/08/20 See Gann MD [address] [facility] [address] [place] [address] Surgeon Neurosurgery 01/07/21 Rufina Shrestha DDS [address] [place] [address] Dentist Dentist 08/19/22 Varinder Dey, MICHAEL [address] [place] [address] Dentist 08/19/22 documented as of this encounter
--- OUTSIDE RECORDS SUMMARY | 2025-03-19 14:40 | XMS_ITS | Encounter Summary ---
Author Organization Healthcare Address [address] [place] [address] Care Team Providers Care Docket Specialist Name Role Phone Teo Dominguez MD Primary Care Provider + [phone] See Gann MD Unavailable [phone] Rufina Shrestha DDS Unavailable + Varinder Dey DMD Unavailable [phone] Reason for Referral * Imaging (Routine) - Pending Review Specialty Diagnoses / Procedures Referred By Akanksha valentino Referred To Contact Cardiology Diagnoses Infrarenal abdominal aortic aneurysm (AAA) without rupture (CMS/HCC) Procedures VAS US Aorta IVC Iliac Vessels Duplex Lan Gray MD [address] [address] Phone: tel: fax: Referral ID Status Reason Start Date Expiration Date Visits Requested Visits Authorized [id number] Pending Review Perform Procedure 03/19/2025 09/18/2026 1 1 Encounter Details Date Type Department Care Team (Latest Contact Info) Description 03/19/2025 2:40 PM EDT Office Visit [place] [facility] 7[address] [facility] 5th Floor [address] [place] [address] Lan Gray MD [id number] [place] [address] Infrarenal abdominal aortic aneurysm (AAA) [...] on aspirin and atorvastatin. 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 SOCIAL HISTORY Tobacco: No cigarette smoking for [...] mellitus, without long-term current use of insulin ([facility]) 02/25/2022 Hypertension 02/25/2022 Class 1 obesity due to excess calories without serious comorbidity in adult 02/25/2022 Abdominal aortic aneurysm (AAA) without rupture (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/HCC) - Primary Relevant Orders VAS US Aorta [...] patient's age of 69 years. The patient's waterworks pump station operator will be informed about the presence ofthe [...] documented as of this encounter Care Teams Docket Specialist Relationship Specialty Start Date End Date Teo Dominguez MD [address] [place] [address] PCP - General 11/08/20 See Gann MD [address] [place] [address] Surgeon Neurosurgery 01/07/21 Rufina Shrestha DDS [address] [place] [address] Dentist Dentist 08/19/22 Varinder Dey DMD [address] [facility] [address] [place] [address] Dentist 08/19/22 documented as of this encounter
--- NOTE | 2025-04-13 15:14 | MR_ITS ---
PROCEDURE INFORMATION: Exam: MR Head Without Contrast Exam date and time: 04/13/2025 3:55 PM Age: 69 years old Clinical indication: Pain; Headache; Posterior migraines x years. HX of stroke x 7 years ago. HX of brain tumor removed from posterior aspect of brain; Additional info: Migraine TECHNIQUE: Imaging protocol: Magnetic resonance imaging of the head without contrast. 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 This lesion was calcified on the prior exam. There is no evidence of acute parenchymal hemorrhage, extra-axial collection, or acute infarction. There is no mass effect, midline shift, or downward herniation. Cerebral ventricles: Normal. No ventriculomegaly. Bones: The patient is status post right occipital craniotomy. Paranasal sinuses: There is mild paranasal sinus disease. Mastoid air cells: Normal as visualized. No mastoid effusion. Orbital cavities: Unremarkable. Soft tissues: Unremarkable. IMPRESSION: 1. No evidence of acute intracranial process. 2. Right cerebellopontine angle lesion. Dedicated MRI of the internal auditory canals would be helpful for further characterization.
--- OUTSIDE RECORDS SUMMARY | 2025-04-13 15:14 | XMS_ITS | Encounter Summary ---
Author Organization Healthcare Address [address] [place] [address] Care Team Providers Care Silk Screen Printer Helper Name Role Phone Teo Dominguez MD Primary Care Provider + [phone] See Gann MD Unavailable [phone] Rufina Shrestha DDS Unavailable + Varinder Dey DMD Unavailable [phone] Encounter Details Date Type Department Care Team (Late st Contact Info) Description 09/17/2024 Orders Only External Location [address] [place] [address] Provider, External Social History Tobacco Use Types [...] documented as of this encounter Care Teams Silk Screen Printer Helper Relationship Specialty Start Date End Date Teo Dominguez MD [address] [place] [address] [phone] PCP - General 11/08/20 See Gann MD [address] [place] [address] Surgeon Neurosurgery 01/07/21 Rufina Shrestha DDS [address] [place] [address] Dentist Dentist 08/19/22 Varinder Dey DMD [address] [place] [address] Dentist 08/19/22 documented as of this encounter
--- OUTSIDE RECORDS SUMMARY | 2025-04-13 15:14 | XMS_ITS | Encounter Summary ---
Author Organization [employer] ([place], [place], [place], [place]) Address [address] [place] [address] Care Team Providers Care Mosaicist Name Role Phone Unavailable Primary Care Provider Unavailabl e Encounter Details Date Type Department Care Team (Late st Contact Info) Description 10/30/2020 Transcribed Document [facility] [place] [facility] [address] [place] [address] ProviderChristina MD [address] [place], [place] [id number] Social History Tobacco Use Types Packs/Day Years [...]
--- OUTSIDE RECORDS SUMMARY | 2025-04-13 15:14 | XMS_ITS | Encounter Summary ---
Author Organization Healthcare Address [address] [place] [address] Care Team Providers Care Edge Polisher Name Role Phone Teo Dominguez MD Primary Care Provider + [phone] See Gann MD Unavailable [phone] Rufina Shrestha DDS Unavailable + Varinder Dey DMD Unavailable [phone] Encounter Details Date Type Department Care Team (Late st Contact Info) Description 04/17/2024 Orders Only External Location [address] [place] [address] Mehul Calderon MD [address] [address] Social History Tobacco Use Types [...] documented as of this encounter Care Teams Edge Polisher Relationship Specialty Start Date End Date Teo Dominguez MD [address] [place] [address] PCP - General 11/08/20 See Gann MD [address] [place] [address] Surgeon Neurosurgery 01/07/21 Rufina Shrestha DDS [address] [place] [address] Dentist Dentist 08/19/22 Varinder Dey DMD [address] [place] [address] Dentist 08/19/22 documented as of this encounter
--- OUTSIDE RECORDS SUMMARY | 2025-04-13 15:14 | XMS_ITS | Encounter Summary ---
Author Organization [employer] ([place], [place], [place], [place]) Address [address] [place] [address] Care Team Providers Care Cruise Staff Member Name Role Phone Unavailable Primary Care Provider Unavailabl e Encounter Details Date Type Department Care Team (Late st Contact Info) Description 10/30/2020 Transcribed Document [facility] [place] [facility] [address] [place] [address] ProviderChristina MD [address] [place] [address] Social History Tobacco Use Types [...] KATHY STODDARD OTR/Gm - 10/30/2020 15:14 EDT Director Of Casino Goals, OT Grooming LTG Grid Goal #1 [...]
--- OUTSIDE RECORDS SUMMARY | 2025-04-13 15:14 | XMS_ITS | Encounter Summary ---
Author Organization Healthcare Address [address] [place] [address] Care Team Providers Care Licensed Home Inspector Name Role Phone Teo Dominguez MD Primary Care Provider + [phone] See Gann MD Unavailable [phone] Rufina Shrestha DDS Unavailable + Varinder Dey DMD Unavailable [phone] Encounter Details Date Type Department Care Team (Late st Contact Info) Description 09/17/2024 Orders Only External Location [address] [place] [address] Provider, External Social History Tobacco Use Types [...] documented as of this encounter Care Teams Licensed Home Inspector Relationship Specialty Start Date End Date Teo Dominguez MD [address] [place] [address] [phone] PCP - General 11/08/20 See Gann MD [address] [place] [address] Surgeon Neurosurgery 01/07/21 Rufina Shrestha DDS [address] [place] [address] Dentist Dentist 08/19/22 Varinder Dey DMD [address] [place] [address] Dentist 08/19/22 documented as of this encounter
--- OUTSIDE RECORDS SUMMARY | 2025-04-13 15:14 | XMS_ITS | Encounter Summary ---
Author Organization Healthcare Address [address] [place] [address] Care Team Providers Care Superintendent Seed Mill Name Role Phone Teo Dominguez MD Primary Care Provider + [phone] See Gann MD Unavailable [phone] Rufina Shrestha DDS Unavailable + Varinder Dey DMD Unavailable [phone] Encounter Details Date Type Department Care Team (Late st Contact Info) Description 04/17/2024 Orders Only External Location [address] [place] [address] Provider, External Social History Tobacco Use Types [...] documented as of this encounter Care Teams Superintendent Seed Mill Relationship Specialty Start Date End Date Teo Dominguez MD [address] [place] [address] PCP - General 11/08/20 See Gann MD [address] [place] [address] Surgeon Neurosurgery 01/07/21 Rufina Shrestha DDS [address] [place] [address] Dentist Dentist 08/19/22 Varinder Dey DMD [address] [place] [address] Dentist 08/19/22 documented as of this encounter
--- OUTSIDE RECORDS SUMMARY | 2025-04-13 15:14 | XMS_ITS | Encounter Summary ---
Author Organization Healthcare Address [address] [place] [address] Care Team Providers Care Biochemical Engineer Name Role Phone Teo Dominguez MD Primary Care Provider + [phone] See Gann MD Unavailable [phone] Rufina Shrestha DDS Unavailable + Varinder Dey DMD Unavailable [phone] Encounter Details Date Type Department Care Team (Late st Contact Info) Description 02/08/2024 Orders Only External Location [address] [place] [address] Provider, External Social History Tobacco Use Types [...] documented as of this encounter Care Teams Biochemical Engineer Relationship Specialty Start Date End Date Teo Dominguez MD [address] [place] [address] PCP - General 11/08/20 See Gann MD [address] [place] [address] Surgeon Neurosurgery 01/07/21 Rufina Shrestha DDS [address] [place] [address] Dentist Dentist 08/19/22 Varinder Dey DMD [address] [place] [address] Dentist 08/19/22 documented as of this encounter
--- OUTSIDE RECORDS SUMMARY | 2025-04-13 15:14 | XMS_ITS | Data Portability ---
Author Organization [facility] Address [facility] [place] [address] Assessment No assessment recorded. Plan of Treatment Reminders Order Date Submit Date Provider Last Modified By Organization Details Last Modified Time Details Appointments None recorded. Lab PSA, serum or plasma [address], [address], 05:44:11 urinalysis , dipstick [address], [address], 13:35:05 Referral None recorded. Procedures bladder scan (PROC) [address], [address], 13:35:05 Surgeries None recorded. Imaging None recorded. Medication Orders alfuzosin ER 10 mg tablet,ext ended release 24 hr 2022 [facility], [address], [address], [place], [address], 12:50:17 Patient TargetsNo targets recorded. Patient InstructionsNo instructions recorded. Reason for Referral None Reported. Results Created Date Observation Date Name Description Value Unit Range Abnormal Flag Note LastModifiedBy Organization Detail LastModifiedTime 04/21/2004/21/2023 PROST ATE SPECI FIC AG (PSA) prostate specific Ag (PSA) 2.40 NG/mL 0.0-4. 0 Not Available [facility] (Lab Registration) [address] , [place], [address], 04/21/2023 16:54:55 04/21/2004/21/2023 PROST ATE SPECI FIC AG (PSA) note Unles s other kenny noted testi ng perfo rmed at: [facility] [address] [place] [address] [phone] Zachery tijerina MD CLIA: [id number] Not Available [facility] (Lab Registration) [address] , [place], [address], 04/21/2023 16:54:55 04/21/2004/21/2023 urina lysis , dipst ick Leukocytes (reference range) negati ve Not Available [facility] [address], [address], 04/21/2023 12:02:01 04/21/2004/21/2023 urina lysis , dipst ick Nitrite (reference range:) negati ve Not Available [address], [address], 04/21/2023 12:02:01 04/21/2004/21/2023 urina lysis , dipst ick Urobilinogen (reference range) 0.2 Not Available [address], [address], 04/21/2023 12:02:01 04/21/2004/21/2023 urina lysis , dipst ick Protein (reference range) negati ve Not Available [address], [address], 04/21/2023 12:02:01 04/21/2004/21/2023 urina lysis , dipst ick pH (reference range 5-8.5) 7.0 Not Available [address], [address], 04/21/2023 12:02:01 04/21/2004/21/2023 urina lysis , dipst ick Blood (reference range:) negati ve Not Available [address], [address], 04/21/2023 12:02:01 04/21/2004/21/2023 urina lysis , dipst ick Specific Vernal (reference range) 1.020 Not Available [address], [address], 04/21/2023 12:02:01 04/21/2004/21/2023 urina lysis , dipst ick Ketone (reference range) negati ve Not Available [address], [address], 04/21/2023 12:02:01 04/21/2004/21/2023 urina lysis , dipst ick Bilirubin (reference range) negati ve Not Available [address], [address], 04/21/2023 12:02:01 04/21/2004/21/2023 urina lysis , dipst ick Glucose (reference range) negati ve Not Available [address], [address], 04/21/2023 12:02:01 04/21/2004/21/2023 bladd er scan (PROC ) Calculated Residual Urine: 24 ml Not Available [address], [address], 04/21/2023 12:02:23 Result Notes None recorded. Problems Name Problem SNOMED Code Status Onset Date Resolution Date Notes Provider Name and Address Organization Details Recorded Time Myocardial infarction 69659018 Active 2022 Princess nash, PACO Amaral [facility] - [place] & [place] 3 09:52:17 Hypertensive disorder 84733699 Active 2022 Princess nash, PACO Amaral [facility] - [facility] & [place] 3 09:52:22 Cerebrovascula r accident 208087450 Active 2022 Princess nash, PACO Amaral [facility] - [facility] & [place] 3 09:52:27 Diabetes mellitus 22724385 Active 2022 Princess nash, PACO Amaral [facility] - [facility] & [place] 3 09:52:34 Acute hepatitis 37459421 Active 2022 Princess nash, PACO Amaral [facility] - [facility] & [place] 3 09:52:47 Gastroesophage al reflux disease 094617863 Active 2022 Princess nash, PACO - [facility] - [facility] & [place] 3 09:52:53 Arthritis 8092264 Active 2022 Princess nash, PACO Amaral [facility] - [facility] & [place] 3 09:52:59 Problem Notes None recorded. Procedures Surgical History Date Name Laterality Status Provider Name and Address Organization Details Recorded Time total resection of visible brain tumor completed Princess Amaral [facility] Munir [place] & [place] 04/21/2023 09:59:35 Imaging Results None recorded. Procedure [...] Updated DateTime 04/21/2023 172.72 cm 30.7 kg/m2 75906.66 g 97.9 [degF] Chintanasa Macario [facility] & [place] 04/21/2023 09:51:06 Social History None recorded. Functional Status Question Answer Note LastModified by Organization D etails LastModified Time What is your level of alcohol consumption? None [email or web address] Information not available 04/21/2023 Mental Status None recorded. Family History Relationship Description Onset Age of this Age Resolved Age Notes LastModified by Organization Details LastModified Time Mother Malignant neoplastic disease dec [email or web address] Not available 2022 09:58:44 Father Myocardial infarction dec Not available 04/21 09:59:00 Medical History No medical history recorded. Past Encounters Encounter ID Performer Location Encounter Start Date Encounter Closed Date Diagnosis/Indication Diagnosis SNOMED-CT Code Diagnosis ICD10 Code Diagnosis IMO Codes Diagnosis Note [id number] Zack Duval Jr, MD [facility] [address] [address] 04/21/2023 09:33:27 04/21/2023 11:15:56 Benign prostatic hyperplasia with outflow obstruction 785666726 N40.1 Patient with history of lower urinary [...] well. Screening for malignant neoplasm of prostate 621264279 Z12.5 prostate exam today he is benign. We will check a PSA. Health Concerns Section Related Observation LastModified by Organization Detai ls LastModified Time None Recorded Concern Status LastModified by Organization Details LastModified Time None Recorded Advance Directives Directive None Recorded Payers Insurance Date Sequence Insurance Name Policy Number Policy Luciano Covered Member ID Luciano Member ID Guarantor Name 05/07/2024 3 [employer] Gigi Crowderpool [id number] Gigi Crowderpool Sr 05/07/2024 1 [employer] (MEDICARE REPLACEMENT/ ADVANTAGE - PPO) Gigi Crowderpool [id number] Gigi Crowderpool Sr 05/07/2024 2 AETNA [facility] (MEDICAID HMO) Gigi Crowderpool [id number] Gigi Crowderpool Sr Notes Date Note Type Note Provider Name and Address Organization Details Recorded Time 04/21/2023 text/html Patient is a 67-year-old white male with a history lower urinary tract symptoms. I saw the patient previously at [facility]. He has been about a year since [...] residual 24 cc. Zack Duval Jr, MD [address] [place] [address], [address], [place], [address], [facility] - [facility] - [place] & [place] 04/21/2023 12:51:33
--- OUTSIDE RECORDS SUMMARY | 2025-04-13 15:14 | XMS_ITS | Encounter Summary ---
Author Organization [employer] ([place], [place], [place], [place]) Address [address] [place] [address] Care Team Providers Care Casino Cage Manager Name Role Phone Unavailable Primary Care Provider Unavailabl e Encounter Details Date Type Department Care Team (Late st Contact Info) Description 10/30/2020 Transcribed Document [facility] [place] [address] [place] [address] ProviderChristina MD [address] [place] [address] Social History Tobacco Use Types [...] Returned : 10/30/2020 9:17 EDT MARIA DEL ROSAIRO FORTUNE - 10/30/2020 9:16 EDT Consult Phone [...]
--- OUTSIDE RECORDS SUMMARY | 2025-04-13 15:14 | XMS_ITS | Encounter Summary ---
Author Organization [email or web address] ([place], [place], [place], [place]) Address [address] [place] [address] Care Team Providers Care Gasoline Engine Inspector Name Role Phone Unavailable Primary Care Provider Unavailabl e Encounter Details Date Type Department Care Team (Late st Contact Info) Description 10/30/2020 Transcribed Document [facility] [place] [address] [place] [address] ProviderChristina MD [address] [place] [address] Social History Tobacco Use Types [...] Health Plan: [employer] CHOICE PPO Policy Number: [id number] Authorization Number: Insurance 2 Health Plan: [facility] Policy Number: [id number] Authorization Number: Insurance Primary Name : [employer] CHOICE PPO Policy Number: [id number] Authorized Service Begin Date-Primary : 10/29/2020 EDT Historical Authorization Comments-Primary : No Authorization Comments Found Nasima Salgado Rn-Utilization Review - 10/30/2020 13:38 EDT documented in this encounter Plan of Treatment Not on file documented as of this encounter Visit Diagnoses Not on filedocumented in this encounter
--- OUTSIDE RECORDS SUMMARY | 2025-04-13 15:14 | XMS_ITS | Encounter Summary ---
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
--- OUTSIDE RECORDS SUMMARY | 2025-04-13 15:14 | XMS_ITS | Encounter Summary ---
Author Organization [employer] ([place], [place], [place], [place]) Address [address] [place] [address] Care Team Providers Care Paraprofessional Aide Name Role Phone Unavailable Primary Care Provider Unavailabl e Encounter Details Date Type Department Care Team (Late st Contact Info) Description 10/30/2020 Transcribed Document [facility] [place] [address] [place] [address] ProviderChristina MD [address] [place] [address] Social History Tobacco Use Types [...] Health Plan: [employer] CHOICE PPO Policy Number: [id number] Authorization Number: Insurance 2 Health Plan: [employer] [facility] Policy Number: [id number] Authorization Number: Historical Authorization Comments-Primary : No Authorization Comments Found Nasima Salgado Rn-Utilization Review - 10/30/2020 13:21 EDT documented in this encounter Plan of Treatment Not on file documented as of this encounter Visit Diagnoses Not on filedocumented in this encounter
--- OUTSIDE RECORDS SUMMARY | 2025-04-13 15:14 | XMS_ITS | Encounter Summary ---
Author Organization [employer] ([place], [place], [place], [place]) Address [address] [place] [address] Care Team Providers Care Telecom Specialist Name Role Phone Unavailable Primary Care Provider Unavailabl e Encounter Details Date Type Department Care Team (Late st Contact Info) Description 10/30/2020 Transcribed Document [facility] [place] [facility] [place] [address] ProviderChristina MD [address] [place] [address] Social History Tobacco Use Types [...] hospital yesterday from the emergency room at [facility] for headaches and syncope, and I have [...] the left. He decided to come to [facility] Emergency Room, where he was given a [...] hydrocodone. SOCIAL HISTORY: The patient lives in [place] by himself, he . 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 He uses a [...] tongue, however, protrudes midline. Coordination shows intact cviuvm-im-irbo and trfg-vw-xwlp bilaterally. Gait was not tested. DIAGNOSTIC STUDIES: IMAGING STUDIES: He had a CTA of the head and neck at [facility] yesterday. The CTA of the head showed no large vessel occlusion. 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 The patient had a CTA of the neck that was normal. The patient had a CT scan of his head at [facility] that suggested calcification of the right anterior [...] of the head and neck done at [facility]. I have asked the staff to load [...] artery appeared diffusely small throughout its course. /[id number] MD MAR Kulkarni/AQ / MAR / MODL /[id number] documented in this encounter Plan of Treatment Not on file documented as of this encounter Visit Diagnoses Not on filedocumented in this encounter
--- OUTSIDE RECORDS SUMMARY | 2025-04-13 15:14 | XMS_ITS | Encounter Summary ---
Author Organization Healthcare Address [address] [place] [address] Care Team Providers Care Mule Tender Name Role Phone Teo Dominguez MD Primary Care Provider + [phone] See Gann MD Unavailable [phone] Rufina Shrestha DDS Unavailable + Varinder Dey DMD Unavailable [phone] Encounter Details Date Type Department Care Team (Late st Contact Info) Description 02/08/2024 Orders Only External Location [address] [place] [address] Provider, External Social History Tobacco Use Types [...] documented as of this encounter Care Teams Mule Tender Relationship Specialty Start Date End Date Teo Dominguez MD [address] [place] [address] PCP - General 11/08/20 See Gann MD [address] [place] [address] Surgeon Neurosurgery 01/07/21 Rufina Shrestha DDS [address] [place] [address] Dentist Dentist 08/19/22 Varinder Dey DMD [address] [place] [address] Dentist 08/19/22 documented as of this encounter
--- OUTSIDE RECORDS SUMMARY | 2025-04-13 15:14 | XMS_ITS | Encounter Summary ---
Author Organization Healthcare Address [address] [place] [address] Care Team Providers Care Waiter/Waitress Counter Name Role Phone Teo Dominguez MD Primary Care Provider + [phone] See Gann MD Unavailable [phone] Rufina Shrestha DDS Unavailable + Varinder Dey DMD Unavailable [phone] Encounter Details Date Type Department Care Team (Late st Contact Info) Description 09/17/2024 Orders Only External Location [address] [place] [address] Provider, External Social History Tobacco Use Types [...] documented as of this encounter Care Teams Waiter/Waitress Counter Relationship Specialty Start Date End Date Teo Dominguez MD [address] [place] [phone] PCP - General 11/08/20 See Gann MD [address] [place] [address] Surgeon Neurosurgery 01/07/21 Rufina Shrestha DDS [address] [place] [address] Dentist Dentist 08/19/22 Varinder Dey DMD [address] [place] [address] Dentist 08/19/22 documented as of this encounter
--- OUTSIDE RECORDS SUMMARY | 2025-04-13 15:14 | XMS_ITS | Encounter Summary ---
Author Organization [email or web address] ([place], [place], [place], [place]) Address [address] [place] [address] Care Team Providers Care Water Resource Engineer Name Role Phone Unavailable Primary Care Provider Unavailabl e Encounter Details Date Type Department Care Team (Late st Contact Info) Description 10/30/2020 Transcribed Document [facility] [place] [address] [place] [address] ProviderChristina MD [address] [place] [address] Social History Tobacco Use Types [...] a seizure disorder. Clinical correlation is advised. /[id number] Zack Henderson MD WSB/AQ / WSB / MODL /[id number] documented in this encounter Plan of Treatment Not on file documented as of this encounter Visit Diagnoses Not on filedocumented in this encounter
--- OUTSIDE RECORDS SUMMARY | 2025-04-13 15:14 | XMS_ITS | Encounter Summary ---
Author Organization [employer] ([place], [place], [place], [place]) Address [address] [place] [address] Care Team Providers Care Geriatric Psychiatrist Name Role Phone Unavailable Primary Care Provider Unavailabl e Encounter Details Date Type Department Care Team (Late st Contact Info) Description 10/30/2020 Transcribed Document [facility] [place] [address] [place] [address] ProviderChristina MD [address], [place] [id number] Social History Tobacco Use Types Packs/Day Years [...] On: 10/30/2020 13:47 EDT by CATE KOHLER Weaver Apprentice Primary Insurance Authorization Authorization and Policy Numbers : Insurance 1 Health Plan: [employer] Policy Number: [id number] Authorization Number: Insurance 2 Health Plan: [facility] Policy Number: [id number] Authorization Number: Insurance Primary Name : [employer] PPO Policy Number: [id number] Authorization Status-Primary : Opo status approv Authorized Service Begin Date-Primary : 10/29/2020 EDT Observation Authorization Nbr-Primary : [id number] Authorization Comments-Primary : Submitted for and obtained OBS approval from [facility] OBS auth# [id number] Historical Authorization Comments-Primary : No Authorization Comments Found CATE KOHLER, Weaver Apprentice - 10/30/2020 13:47 EDT Electronically signed by Donald, [facility] Conversion Equipment Maintenance Engineer Cerner at 10/14/2022 11:40 AM CDT documented in this encounter Plan of Treatment Not on file documented as of this encounter Visit Diagnoses Not on filedocumented in this encounter
--- OUTSIDE RECORDS SUMMARY | 2025-04-13 15:14 | XMS_ITS | Encounter Summary ---
Author Organization Healthcare Address [address] [place] [address] Care Team Providers Care Facilitator Name Role Phone Teo Dominguez MD Primary Care Provider + [phone] See Gann MD Unavailable [phone] Rufina Shrestha DDS Unavailable + Varinder Dey DMD Unavailable [phone] Encounter Details Date Type Department Care Team (Late st Contact Info) Description 02/08/2024 Orders Only External Location [address] [place] [address] Provider, External Social History Tobacco Use Types [...] documented as of this encounter Care Teams Facilitator Relationship Specialty Start Date End Date Toe Dominguez MD [address] [place] [address] PCP - General 11/08/20 See Gann MD [address] [place] [address] Surgeon Neurosurgery 01/07/21 Rufina Shrestha DDS [address] [place] [address] Dentist Dentist 08/19/22 Varinder Dey DMD [address] [place] [address] Dentist 08/19/22 documented as of this encounter
--- OUTSIDE RECORDS SUMMARY | 2025-04-13 15:15 | XMS_ITS | Encounter Summary ---
Author Organization [employer] ([place], [place], [place], [place]) Address [address] [place] [address] Care Team Providers Care Board Mixer Tender Name Role Phone Unavailable Primary Care Provider Unavailabl e Encounter Details Date Type Department Care Team (Late st Contact Info) Description 10/29/2020 Transcribed Document [facility] [place] [address] [place] [address] ProviderChristina MD [address] [place] [address] Social History Tobacco Use Types [...]
--- OUTSIDE RECORDS SUMMARY | 2025-04-13 15:15 | XMS_ITS | Encounter Summary ---
Author Organization Healthcare Address [address] [place] [address] Care Team Providers Care Math And Science Division Chair Name Role Phone Teo Dominguez MD Primary Care Provider + [phone] See Gann MD Unavailable [phone] Rufina Shrestha DDS Unavailable + Varinder Dey DMD Unavailable [phone] Encounter Details Date Type Department Care Team (Late st Contact Info) Description 03/12/2025 Telephone [facility] [place] [address] [place] [address] Suzanna Brooke, RN [facility] - [facility] Social History Tobacco Use Types Packs/Day Years [...] Gigi Nolan :1955 Date:03/12/2025 Affiliate site: [facility] Referring Physician: Jessica Romeo Education/ Information provided: n/a This Nurse Liaison left a voicemail message for Gigi Nolan prior to an appointment on 03/19/2025. Provided patient with liaison contact information and encouraged patient to call with any questions, concerns or assistance needs. Will follow up with patient after appointment. Suzanna Brooke, RN [facility] Nurse Liaison [phone] documented in this encounter Plan of Treatment [...] documented as of this encounter Care Teams Math And Science Division Chair Relationship Specialty Start Date End Date Teo Dominguez MD [address] [place], [place] [id number] PCP - General 11/08/20 See Gann MD [address] [place] [address] Surgeon Neurosurgery 01/07/21 Rufina Shrestha DDS [address] [place] [address] Dentist Dentist 08/19/22 Varinder Dey DMD [address] [place] [address] Dentist 08/19/22 documented as of this encounter
--- OUTSIDE RECORDS SUMMARY | 2025-04-13 15:15 | XMS_ITS | Encounter Summary ---
Author Organization Healthcare Address [address] [place] [address] Care Team Providers Care Oncology Research Rn Name Role Phone Teo Dominguez MD Primary Care Provider + [phone] See Gann MD Unavailable [phone] Rufina Shrestha DDS Unavailable + Varinder Dey DMD Unavailable [phone] Encounter Details Date Type Department Care Team (Late st Contact Info) Description 12/12/2024 Community [facility] [address] [place] [address] Veronica Edmond MD [address] [place] [address] [place] [address] Social History Tobacco Use Types [...] documented as of this encounter Care Teams Oncology Research Rn Relationship Specialty Start Date End Date Teo Dominguez MD [address], [place] [phone] PCP - General 11/08/20 See Gann MD [address] [place] [address] Surgeon Neurosurgery 01/07/21 Rufina Shrestha DDS [address] [place] [address] Dentist Dentist 08/19/22 Varinder Dey DMD [address] [place] [address] Dentist 08/19/22 documented as of this encounter
--- OUTSIDE RECORDS SUMMARY | 2025-04-13 15:15 | XMS_ITS | Encounter Summary ---
Author Organization Healthcare Address [address] [place] [address] Care Team Providers Care Blender Conveyor Operator Name Role Phone Teo Dominguez MD Primary Care Provider + [phone] See Gann MD Unavailable [phone] Rufina Shrestha DDS Unavailable + Varinder Dey DMD Unavailable [phone] Encounter Details Date Type Department Care Team [...] documented as of this encounter Care Teams Blender Conveyor Operator Relationship Specialty Start Date End Date Teo Dominguez MD [address] [place], [place] [id number] PCP - General 11/08/20 See Gann MD [address] [place] [address] Surgeon Neurosurgery 01/07/21 Rufina Shrestha DDS [address] [place] [address] Dentist Dentist 08/19/22 Varinder Dey DMD [address] [place] [address] Dentist 08/19/22 documented as of this encounter
--- OUTSIDE RECORDS SUMMARY | 2025-04-13 15:15 | XMS_ITS | Encounter Summary ---
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 Needed : No GO CALL RN - [...] Level : 46 or > High Risk [place] Fall Interventions : Adequate lighting, Assistive devices [...] Source : Stated Height Entry Format : [place] Height, Feet : 5 ft(Converted to: 152 cm, 60 Inch) Height, Inches : 8 Inch(Converted to: 0 ft 8 Inch, 20.32 cm) Clinical Height : 172.72 cm Weight Source : Standing scale Weight Entry Format : [place] Clinical Dosing Weight : 95.45 kg Weight, Pounds : 210 lb Body Surface Area (BSA) : 2.09 m2 Body Mass Index : 32 kg/m2 (HI) [place] Body Weight : 67 kg GO CALL [...] GO CALL RN - 10/29/2020 22:27 EDT [place] Suicide Severity Rating Scale (C-SSRS) CSSRS Past [...] 10/29/2020 22:27 EDT Electronically signed by Donald [facility] Conversion Mirror Department Supervisor Cerner at 10/14/2022 11:43 AM CDT documented in this encounter Plan of Treatment Not on file documented as of this encounter Visit Diagnoses Not on filedocumented in this encounter
--- OUTSIDE RECORDS SUMMARY | 2025-04-13 15:15 | XMS_ITS | Encounter Summary ---
Author Organization Healthcare Address [address] [place] [address] Care Team Providers Care Land Resource Specialist Name Role Phone Teo Dominguez MD Primary Care Provider [phone] See Gann MD Unavailable [phone] Rufina Shrestha DDS Unavailable + Varinder Dey DMD Unavailable [phone] Reason for Referral * Consultation (Routine) - Closed Specialty Diagnoses / Procedures Referred By Contac t Referred To Contact Neurosurgery Diagnoses Abnormal MRI, spine Mehul Winston, GATE SUPERVISOR [address] [place] [address] Phone: tel: fax: Referral ID Status Reason Start Date Expiration Date V isits Requested Visits Authorized [id number] Closed Specialty Services Required 12/05/2020 06/03/2021 1 1 Encounter Details Date Type Department Care Team (Late st Contact Info) Description 12/05/2020 Community [facility] Community Practice [address] [place] [address] Mehul Winston, GATE SUPERVISOR [address] [place] [address] Abnormal MRI, spine (Primary Dx) [...] Primary documented in this encounter Care Teams Land Resource Specialist Relationship Specialty Start Date End Date Teo Dominguez MD [address] [place] [id number] PCP - General 11/08/20 See Gann MD [address] [place] [address] Surgeon Neurosurgery 01/07/21 Rufina Shrestha DDS [address] [place] [address] [place] [address] Dentist Dentist 08/19/22 Varinder Dey DMD [address] [place] [address] [place] [address] Dentist 08/19/22 documented as of this encounter
--- OUTSIDE RECORDS SUMMARY | 2025-04-13 15:15 | XMS_ITS | Encounter Summary ---
Author Organization [employer] ([place], [place], [place], [place]) Address [address] [place] [address] Care Team Providers Care Nurse Sane Name Role Phone Unavailable Primary Care Provider Unavailabl e Encounter Details Date Type Department Care Team (Late st Contact Info) Description 10/29/2020 Transcribed Document [facility] [place] [facility] [place] [address] ProviderChristina MD [address] [place], [place] [phone] Social History Tobacco Use Types Packs/Day Years [...] diff colitis in july who presented to [facility] on 10/29 for evaluation of [...] iv fluids and toradol and transferred to [facility] for further evaluation. Health Status Allergies: Allergic [...] At risk for sleep apnea / IMO [id number] / Confirmed, Active Problems (1) At risk [...] facial droop. eomi, tongue protrudes midline. 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 hard of hearing. 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 documented in this encounter Plan of Treatment Not on file documented as of this encounter Visit Diagnoses Not on filedocumented in this encounter
--- OUTSIDE RECORDS SUMMARY | 2025-04-13 15:15 | XMS_ITS | Continuity of Care Document ---
Author Organization [facility] Address [address] [place] [address] Assessment No assessment recorded. Plan of Treatment Reminders Order Date Submit Date Provider Last Modified By Organization Details Last Modified Time Details Appointments FOLLOW UP 15 2024 01:30P Saumya Pineda PA-C Not available Not available Not available Lab HbA1c (hemoglob in A1c), blood [address], [address] [place], [address], 02/27/2025 11:26:22 microalbu min/creat inine, mass ratio, urine [address], [address] [place], [address], 02/27/2025 11:26:22 Referral None recorded. Procedures None recorded. Surgeries None recorded. Imaging MRI, brain, w/o contrast 2024 025 [email or web address] [facility], [address], [place], [address], 03/22/2025 15:12:30 Medication Orders Lidoderm 5 % topical patch 2024 025 [facility], [address], [address], [place], [address], 02/27/2025 11:33:59 Ubrelvy 100 mg tablet 2024 025 [facility], [address] [place] [address], [address], [place], [address], 02/27/2025 11:33:59 ofloxacin 0.3 % eye drops 2024 025 [facility], [address] [place] [address], [facility] [address], [place], [address], 02/27/2025 11:33:59 Patient TargetsNo targets recorded. Patient Instructions Encounter Date Encounter Id Patient Instructions Last Modified By Organization Details Last Modified Time 02/27/2025 [id number] abdominal pain: care instructions [email or web address] Not available 02/27/2025 11:27:30 learning about type 2 diabetes [email or web address] Not available 02/27/2025 11:26:22 type 2 diabetes: care instructions [email or web address] Not available 02/27/2025 11:26:22 Reason for Referral None Reported. Results Created Date Observation Date Name Description Value Unit Range Abnormal Flag Note LastModifiedBy Organization Detail LastModifiedTime 02/28/2002/27/2025 micro album in/cr eatin ine, mass ratio , urine Microalbumin 10 mg/L Not Available [facility] [address] [place] [address], [phone], 02/27/2025 11:01:14 02/28/20 25 02/27/2025 micro album in/cr eatin ine, mass ratio , urine Creatinine 200 mg/dL Not Available [facility] [address] [place] [address], [address], 02/27/2025 11:01:14 02/28/20 25 02/27/2025 micro album in/cr eatin ine, mass ratio , urine Ratio <30 mg/g Not Available [facility] [address] [place], [address], 02/27/2025 11:01:14 02/28/20 25 02/27/2025 HbA1c (hemo globi n A1c), blood HbA1c 5.6 % Not Available [facility] [address] [facility], [place], [address], 02/27/2025 10:55:06 02/28/20 25 09/17/2024 CT, abdom en + pelvi s, w/o contr ast No observ ation record ed. [email or web address] [facility] (Med Record) [address], [place], [address], 02/27/2025 12:05:03 Result Notes None recorded. Problems Name Problem SNOMED Code Status Onset Date Resolution Date Notes Provider Name and Address Organization Details Recorded Time Chronic low back pain 462845646 Active 2024 LOUIE Quevedo [address] [place] [address], [phone], [employer] 11:25:21 Type 2 diabetes mellitus 81321418 Active 2024 LOUIE Quevedo [address] [place] [address], [address], [employer] 11:25:45 Migraine 15526945 Active 2024 LOUIE Quevedo [address] [place] [address], [address], [employer] 11:25:52 Generalized abdominal pain 050547556 Active 2024 LOUIE Quevedo [address] [place] [address], [address], [place] [employer] 11:27:15 Anxiety 54052346 Active 2024 LOUIE Quevedo [address] [place] [address], [address], [employer] 11:13:54 Bronchitis 16081097 Active 2024 LOUIE Quevedo [address] [place] [address], [address], [employer] 14:06:18 Problem Notes None recorded. Procedures Surgical History Date Name Laterality Status Provider Name and Address Organization Details Recorded Time Cataract Surgery completed [employer] 02/27/2025 10:41:47 Colposcopy completed [email or web address] [facility] [employer]. 02/27/2025 10:41:47 Eye Surgery completed [facility] [employer] [facility] [employer]. 02/27/2025 10:41:47 Cosmetic Surgery completed [employer]. 02/27/2025 10:41:47 repair of aneurysm of aorta completed [employer]. 02/27/2025 10:55:36 Imaging Results None recorded. Procedure Notes None recorded. Medical Equipment None Reported. Allergies Allergen ID Allergen Name Allergen Category Reaction Reaction Severity Criticality Documentation Date Start Date Code Code System Note Provider Name and Address Organization Details Recorded Time 76123 Product containin g penicilli n (product) medicatio n rash Not available Not available 02/27/2025 11875 8001 SNOMED [employer] 5 10:41:46 29240 Substance with sulfonami de structure and antibacte rial mechanism of action (substanc e) medicatio n other Not available Not available 02/27/2025 04367 8003 SNOMED [employer] 5 10:41:46 58997 latex environme nt,medica tion other Not available Not available 02/27/2025 97776 91 RxNorm [employer]. 10:41:46 Medications Name Sig Start Date Stop Date Status Note LastModified by Organization Details LastModified Time losartan 50 mg tablet Take 1 tablet every day by oral route. active Not Available Not Available No t Available atorvastati n 40 mg tablet Take 1 tablet every day by oral route. active Not Available Not Available No t Available methocarbam ol 500 mg tablet Take 1 tablet every day by oral route. active Not Available Not Available No t Available metformin 500 mg tablet Take 1 tablet every day by oral route. 03/13 completed Not Available Not Available Not Available cetirizine 10 mg tablet Take 1 tablet every day by oral route. active Not Available Not Available No t Available azithromyci n 250 mg tablet TAKE 2 TABLETS (500 MG) BY ORAL ROUTE ONCE DAILY FOR 1 DAY THEN 1 TABLET (250 MG) BY ORAL ROUTE ONCE DAILY FOR 4 DAYS 2024 active Not Available Not Available Not Avai lable ofloxacin 0.3 % eye drops INSTILL 1 DROP INTO AFFECTED EYE(S) BY OPHTHALMI C ROUTE 4 TIMES PER DAY 2024 active Not Available Not Available Not Avai lable prednisone 20 mg tablet Take 1 tablet twice a day by oral route for 5 days. 03/25 completed Not Available Not Available Not Available omeprazole 40 mg capsule,del ayed release Take 1 capsule every day by oral route. active Not Available Not Available No t Available levothyroxi ne 75 mcg tablet Take 1 tablet every day by oral route. active Not Available Not Available No t Available lidocaine 5 % topical patch active Not Available Not Available Not Available hydrochloro thiazide 12.5 mg capsule Take 1 capsule every day by oral route. active Not Available Not Available No t Available nitroglycer in 0.[address] 1 tablet as needed by sublingua l route. active Not Available Not Available No t Available metoprolol succinate ER 25 mg tablet,exte nded release 24 hr Take 1 tablet every day by oral route. active Not Available Not Available No t Available Halcion 0.25 mg tablet Take 1 tablet by oral route as needed for 1 day, for 30 minutes before MRI. 2024 active Not Available Not Available Not Avai lable albuterol sulfate HFA 90 mcg/actuati on aerosol inhaler Inhale 2 puffs every 4 hours by inhalatio n route as needed. active Not Available Not Available No t Available alfuzosin ER 10 mg tablet,exte nded release 24 hr Take 1 tablet every day by oral route. active Not Available Not Available No t Available sildenafil (pulmonary hypertensio n) 20 mg tablet TAKE 1 TABLET DAILY NEEDED FOR SEXUAL ACTIVITY; ADMINISTE R DOSES AT LEAST 4-6 HOURS APART 2024 active Not Available Not Available Not Avai lable ranolazine ER 500 mg tablet,exte nded release,12 hr Take 1 tablet twice a day by oral route. active Not Available Not Available No t Available Cynthia Chewable Low Dose Aspirin 81 mg tablet Chew 1 tablet every day by oral route. active Not Available Not Available No t Available Accu-Chek Guide test strips TEST TWICE DAILY 2024 active Not Available Not Available Not Avai lable Ubrelvy 100 mg tablet active Not Available Not Available No t Available Vitals Date Recorded Body weight Body mass index (BMI) Body height Oxygen saturation Oxygen saturation in Arterial blood by Pulse oximetry Heart rate Body temperature Systolic And Diastolic Provider Name and Address Organization Details Last Updated DateTime 72698.0 1 g 30.1 kg/m2 172.72 cm 95 % 95 % 60 /min 98.2 [degF] 126/80 mm[Hg] [employer] 10:56:30 Social History Question Answer Notes LastModified by Organizat ion Details LastModified Time Tobacco Smoking Status Former Smoker [employer] 02/27/2025 10:53:37 Do You Have An Advance Directive? No Information not available 02/27/2025 Is Your Home Air Conditioned? Yes Information not available 02/27/2025 What Type Of Diet Are You Following? DIABETIC Information not available 02/27/2025 Have There Been Any Changes To Your Family Or Social Situation? No Information not available 02/27/2025 When Did You Quit Smoking? 16+yearssince marlene 2004 Stop Date Information not available 02/27/2025 Which Of Your Hands Is Dominant? Right Information not available 02/27/2025 Do You Have A Medical Power Of Water Sponger? No Information not available 02/27/2025 What Was The Date Of Your Most Recent Tobacco Screening? 03/13/2025 Information not available 03/13/2025 What Is Your Relationship Status? Information not available 02/27/2025 Do You Use Your Seat Belt Or Car Seat Routinely? Yes Information not available 02/27/2025 Do You Have Smoke And Carbon Monoxide Detectors In Your Home? Yes Information not available 02/27/2025 At What Age Did You Start Smoking Tobacco? 16 Information not available 02/27/2025 Are You Passively Exposed To Smoke? No Information not available 02/27/2025 Are There Any Smokers In Your House? No Information not available 02/27/2025 How Much Tobacco Do You Smoke? No Information not available 02/27/2025 Has Tobacco Cessation Counseling Been Provided? No Information not available 02/27/2025 Have You Recently Traveled Abroad? No Information not available 02/27/2025 Do You Have Any Dietary Restrictions? No Information not available 02/27/2025 Sex: Unknown Functional Status Question Answer Note LastModified by Organizat ion Details LastModified Time Do you use any illicit or recreational drugs? No Information not available 02/27/2025 Do you or have you ever used any other forms of tobacco or nicotine? No Information not available 02/27/2025 Are you currently employed? No Information not available 02/27/2025 Do you have transportation difficulties? No Information not available 02/27/2025 Are you able to care for yourself independently? Yes Information not available 02/27/2025 Mental Status Question Answer Note LastModified by Organization D etails LastModified Time Do you feel stressed (tense, restless, nervous, or anxious, or unable to sleep at night)? [id number] Information not available 02/27/2025 Family History Relationship Description Onset Age of this Age Resolved Age Notes LastModified by Organization Details LastModified Time Mother Hypertensive disorder Not available 2024 10:41:46 Mother Diabetes mellitus Not available 2024 10:41:46 Father Hypercholest erolemia Not available 2024 10:41:46 Father Depressive disorder Not available 2024 10:41:46 Medical History Condition Response Coronary Artery Disease Y Depression Y Anxiety Disorder Y Vision or Eye Problems Y Arthritis Y Acid Reflux (GERD) Y Stroke Y High Cholesterol Y Headaches Y Thyroid Problems Y GI Problems Y Diabetes Y Asthma Y Hepatitis Y Hypertension Y Immunizations Vaccine Type Date Status Note Provider Ulises felix and Address Organization Details Recorded Time Influenza, split virus, trivalent, preservative 1 completed Not Available [facility] 03/13/2025 13:20:42 Influenza, split virus, trivalent, preservative 3 completed Not Available [facility] 03/13/2025 13:20:42 Influenza, split virus, trivalent, preservative 4 completed Not Available [facility] 03/13/2025 13:20:42 Influenza, split virus, trivalent, preservative 5 completed Not Available [facility] 03/13/2025 13:20:42 Influenza, split virus, quadrivalent, preservative 7 completed Not Available [facility] 03/13/2025 13:20:42 Influenza, split virus, quadrivalent, PF 8 completed Not Available [facility] 03/13/2025 13:20:42 Influenza, high-dose, trivalent, PF 0 completed Not Available [facility] 03/13/2025 13:20:42 Influenza, high-dose, trivalent, PF 0 completed Not Available [facility] 03/13/2025 13:20:42 COVID-19, mRNA, LNP-S, PF, 100 mcg/0.5mL dose or 50 mcg/0.25mL dose 1 completed Not Available [facility] 03/13/2025 13:20:42 COVID-19, mRNA, LNP-S, PF, 100 mcg/0.5mL dose or 50 mcg/0.25mL dose 1 completed Not Available [facility] 03/13/2025 13:20:42 Influenza, high-dose, trivalent, PF 4 completed Not Available [facility] 03/13/2025 13:20:42 Past Encounters Encounter ID Performer Location Encounter Start Date Encounter Closed Date Diagnosis/Indication Diagnosis SNOMED-CT Code Diagnosis ICD10 Code Diagnosis IMO Codes Diagnosis Note [id number] LOUIE Quevedo [facility] [address] [place] [address] 02/27/2025 10:40:23 02/27/2025 11:25:04 Internal hordeolum of right lower eyelid 7332344072 07033 H00.071 1901648 Chronic low back pain 27 6518489 M54.50 G89.29 9664104168 Type 2 leslie betes mellitus 10640981 E11.9 10058588 Migraine 75261650 G43.90 9 82453 Generalize d abdominal pain 414714551 R10.84 115588 Reschedule EGD and colonoscop y Health Concerns Section Related Observation LastModified by Organization Detai ls LastModified Time None Recorded Concern Status LastModified by Organization Details LastModified Time None Recorded Payers Encounter Date Sequence Insurance Name Policy Number Policy Luciano Covered Member ID Luciano Member ID Guarantor Name 02/27/2025 2 [facility] (MEDICARE REPLACEMENT/A DVANTAGE - HMO) [facility] [id number] Gigi Nolan 02/27/2025 1 [facility] [employer] - DUAL ELIGIBLE (MEDICARE REPLACEMENT/A DVANTAGE - HMO) HEMALATHA [employer] [id number] Gigi [employer] Notes Date Note Type Note Provider Name and Address Organization Details Recorded Time 02/27/2025 text/html ROS as noted in the HPI Patient presents to establish care.States that he has headaches all the time. He has chronic neck pain, cervical stenosis, bulging discs in his neck.History of stroke. Weakness right eye, drooping right side of mouth.Requests Lidoderm patches for chronic back pain.Has stomach pain all the time. Left side is worse. Was scheduled for gastro to have EGD and colonoscopy but had what he calls a panic attack and left.Has drainage from the corner of right eye. Had surgery a while ago. Found a retained suture a few days ago. LOUIE Quevedo [address] [place] [address], [place], [address], [place] [employer] 03/02/2025 15:26:09
--- OUTSIDE RECORDS SUMMARY | 2025-04-13 15:15 | XMS_ITS | Continuity of Care Document ---
Author Organization [facility] [employer] [facility] Address [address] [place] [address] Assessment No assessment recorded. Plan of Treatment Reminders Order Date Submit Date Provider Last Modified By Organization Details Last Modified Time Details Appointments FOLLOW UP 15 2024 01:30P Saumya Pineda PA-C Not available Not available Not available Lab rapid flu (A+B) [address], [address] [place], [address], 03/13/2025 14:07:21 rapid SARS CoV 2 Ag, QL, IA, upper respirato ry specimen [address], [address] [place], [address], 03/13/2025 14:07:21 Referral None recorded. Procedures None recorded. Surgeries None recorded. Imaging None recorded. Medication Orders azithromy sheng 250 mg tablet 2024 025 [facility], [address] [place] [address], [address], [address], 03/13/2025 14:11:13 prednison e 20 mg tablet 2024 025 [facility], [address] [place] [address], [address], [address], 03/25/2025 05:02:38 Patient TargetsNo targets recorded. Patient Instructions Encounter Date Encounter Id Patient Instructions Last Modified By Organization Details Last Modified Time 03/13/2025 [id number] bronchitis: care instructions [email or web address] Not available 03/13/2025 14:07:04 Reason for Referral None Reported. Results Created Date Observation Date Name Description Value Unit Range Abnormal Flag Note LastModifiedBy Organization Detail LastModifiedTime 02/28/2002/27/2025 micro album in/cr eatin ine, mass ratio , urine Microalbumin 10 mg/L Not Available [facility] [address] [place] [address], [address], 02/27/2025 11:01:14 02/28/20 25 02/27/2025 micro album in/cr eatin ine, mass ratio , urine Creatinine 200 mg/dL Not Available [address], [address], 02/27/2025 11:01:14 02/28/2002/27/2025 micro album in/cr eatin ine, mass ratio , urine Ratio <30 mg/g Not Available [address], [address], 02/27/2025 11:01:14 02/28/2002/27/2025 HbA1c (hemo globi n A1c), blood HbA1c 5.6 % Not Available [address], [address], 02/27/2025 10:55:06 03/13/2003/13/2025 rapid SARS CoV 2 Ag, QL, IA, upper respi rator y speci men SARS CoV Ag negati ve Not Available [address], [address], 03/13/2025 13:27:31 03/13/20 25 03/13/2025 rapid flu (A+B) Flu A negati ve Not Available [facility] [address] [facility], [place], [address], 03/13/2025 13:27:22 03/13/20 25 03/13/2025 rapid flu (A+B) Flu B negati ve Not Available [facility] [address] [facility], [place], [address], 03/13/2025 13:27:22 02/28/20 25 09/17/2024 CT, abdom en + pelvi s, w/o contr ast No observ ation record ed. [id number] [facility] (Med Record) [address], [place], [address], 02/27/2025 12:05:03 Result Notes None recorded. Problems Name Problem SNOMED Code Status Onset Date Resolution Date Notes Provider Name and Address Organization Details Recorded Time Chronic low back pain 862954112 Active 2024 LOUIE Quevedo [address] [place] [address], [address], [employer] 11:25:21 Type 2 diabetes mellitus 66369224 Active 2024 LOUIE Quevedo [address] [place] [address], [address], [employer] 5 11:25:45 Migraine 61524525 Active 2024 LOUIE Quevedo [address] [place] [address], [address], [employer] 5 11:25:52 Generalized abdominal pain 442810513 Active 2024 LOUIE Quevedo [address] [place] [address], [address] 8, [employer] 11:27:15 Anxiety 08612245 Active 2024 LOUIE Quevedo [address] [place] [address], [address] 8, [employer] 5 11:13:54 Bronchitis 74351277 Active 2024 LOUIE Quevedo [address] [place] [address], [address], [employer] 14:06:18 Problem Notes None recorded. Procedures Surgical History Date Name Laterality Status Provider Name and Address Organization Details Recorded Time Cataract Surgery completed [employer] [facility] [employer] 02/27/2025 10:41:47 Colposcopy completed [employer] [facility] [employer], [employer]. 02/27/2025 10:41:47 Eye Surgery completed [employer] [facility] [employer]. 02/27/2025 10:41:47 Cosmetic Surgery completed [employer]. 02/27/2025 10:41:47 repair of aneurysm of aorta completed [employer]. 02/27/2025 10:55:36 Imaging Results None recorded. Procedure Notes None recorded. Medical Equipment None Reported. Allergies Allergen ID Allergen Name Allergen Category Reaction Reaction Severity Criticality Documentation Date Start Date Code Code System Note Provider Name and Address Organization Details Recorded Time 12365 Product containin g penicilli n (product) medicatio n rash Not available Not available 02/27/2025 27060 8001 SNOMED [employer] [facility] [employer] 5 10:41:46 11066 Substance with sulfonami de structure and antibacte rial mechanism of action (substanc e) medicatio n other Not available Not available 02/27/2025 14301 8003 SNOMED [employer], [employer] 5 10:41:46 26542 latex environme nt,medica tion other Not available Not available 02/27/2025 25986 91 [employer]Norm [employer], [employer] 10:41:46 Medications Name Sig Start Date Stop [...] No t Available Vitals Date Recorded Body height Body mass index (BMI) Body weight Oxygen saturation Oxygen saturation in Arterial blood by Pulse oximetry Heart rate Body temperature Systolic And Diastolic Provider Name and Address Organization Details Last Updated DateTime 172.72 cm 30.6 kg/m2 48692.0 7 g 94 % 94 % 64 /min 98.4 [degF] 100/64 mm[Hg] Fiordaliza Holman [employer], [employer]. 13:26:34 Social History Question Answer Notes LastModified by Organizat ion Details LastModified Time Tobacco Smoking Status Former Smoker Fiordaliza nash Nagi. 02/27/2025 10:53:37 Do You Have An Advance Directive? No Information not available 02/27/2025 Is Your Home Air Conditioned? Yes Information not available 02/27/2025 What Type Of Diet Are You Following? DIABETIC Information not available 02/27/2025 Have There Been Any Changes To Your Family Or Social Situation? No Information not available 02/27/2025 When Did You Quit Smoking? 16+yearssince lastcigarette 2004 Stop Date Information not available 02/27/2025 Which Of Your Hands Is Dominant? Right Information not available 02/27/2025 Do You Have A Medical Power Of Lead Custodian? No Information not available 02/27/2025 What Was [...] Functional Status Question Answer Note LastModified by [employer] ion Details LastModified Time Do you use [...] anxious, or unable to sleep at night)? [id number] Information not available 02/27/2025 Family History Relationship Description Onset Age of this Age Resolved Age Notes LastModified by Organization Details LastModified Time Mother Hypertensive disorder Not available 2024 10:41:46 Mother Diabetes mellitus Not available 2024 10:41:46 Father Hypercholest erolemia Not available 2024 10:41:46 Father Depressive disorder Not available 2024 10:41:46 Medical History Condition Response Anxiety Disorder Y Diabetes Y Coronary Artery Disease Y Vision or Eye Problems Y Arthritis Y Acid Reflux (GERD) Y Stroke Y Thyroid Problems Y Depression Y Asthma Y GI Problems Y High Cholesterol Y Hepatitis Y Headaches Y Hypertension Y Immunizations Vaccine Type Date Status Note Provider Nam e and Address Organization Details Recorded Time Influenza, split virus, trivalent, preservative 1 completed Not Available [facility] 03/13/2025 13:20:42 Influenza, split virus, trivalent, preservative 3 completed Not Available [facility] 03/13/2025 13:20:42 Influenza, split virus, trivalent, preservative 4 completed Not Available [facility] 03/13/2025 13:20:42 Influenza, split virus, trivalent, preservative 5 completed Not Available [facility] 03/13/2025 13:20:42 Influenza, split virus, quadrivalent, preservative 7 completed Not Available [facility] 03/13/2025 13:20:42 Influenza, split virus, quadrivalent, PF 8 completed Not Available [facility] 03/13/2025 13:20:42 Influenza, high-dose, trivalent, PF 0 completed Not Available [facility] 03/13/2025 13:20:42 Influenza, high-dose, trivalent, PF 0 completed Not Available [facility] 03/13/2025 13:20:42 COVID-19, mRNA, LNP-S, PF, 100 mcg/0.5mL dose or 50 mcg/0.25mL dose 1 completed Not Available [facility] 03/13/2025 13:20:42 COVID-19, mRNA, LNP-S, PF, 100 mcg/0.5mL dose or 50 mcg/0.25mL dose 1 completed Not Available [facility] 03/13/2025 13:20:42 Influenza, high-dose, trivalent, PF 4 completed Not Available [facility] 03/13/2025 13:20:42 Past Encounters Encounter ID Performer Location Encounter Start Date Encounter Closed Date Diagnosis/Indication Diagnosis SNOMED-CT Code Diagnosis ICD10 Code Diagnosis IMO Codes Diagnosis Note [id number] LOUIE Quevedo [facility] [address] [facility] [place] [address] 02/27/2025 10:40:23 02/27/2025 11:25:04 Internal hordeolum of right lower eyelid 1982652311 73994 H00.806 2440811 Chronic low back pain 27 9955411 M54.50 G89.29 7065248319 Type 2 leslie betes mellitus 37665251 E11.9 57107567 Migraine 06143897 G43.90 9 29564 Generalize d abdominal pain 853838913 R10.84 [id number] Reschedule EGD and colonoscop y [id number] LOUIE Quevedo [facility] [address] [facility] [place] [address] 03/13/2025 13:13:39 03/13/2025 13:53:05 Pulmonary congestion 80669724 R09.89 163230 Bronchitis 58264251 J40 74920 Health Concerns Section Related Observation LastModified by Organization Detai ls LastModified Time None Recorded Concern Status LastModified by Organization Details LastModified Time None Recorded Payers Encounter Date Sequence Insurance Name Policy Number Policy Luciano Covered Member ID Luciano Member ID Guarantor Name 03/13/2025 1 [facility] - DUAL ELIGIBLE (MEDICARE REPLACEMENT/AD VANTAGE - HMO) PACODSNEVIN Gigi Oxnard Sr [id number] Gigi Oxnard 03/13/2025 2 [facility] - [place] PACODSNP Gigi Oxnard [id number] Gigi Oxnard Notes Date Note Type Note Provider Name and Address Organization Details Recorded Time 03/13/2025 text/html ROS as noted in the HPI Patient states that Ubrelvy has helped a lot with his headaches.Lidode rm patches have helped with his low back.He was scheduled for MRI last week but got sick. Still has congestion, cough, wheezing, SOA. LOUIE Quevedo [address] [place] [address], [address], [facility] [employer] 03/13/2025 15:52:30
--- OUTSIDE RECORDS SUMMARY | 2025-04-13 15:15 | XMS_ITS | Clinical Summary ---
Author Organization [facility] Address [address] [place] [address] Care Team Providers Care Product Assurance Engineer Name Role Phone Teo Dominguez MD Primary Care Provider + [phone] See Gann MD Unavailable [phone] Rufina Shrestha DDS Unavailable + Varinder Dey DMD Unavailable [phone] Allergies Active Allergy Reactions Criticality Noted Date [...] .COMPLEX 4 Active neomycin-polymyxin -dexamethamethason e (Polydex) 3.5-63825-1.1 ointment ophthalmic ointment 3 Active ondansetron ODT [...] Description 03/19/2025 2:40 PM EDT Office Visit [facility] [address] [facility] [address]th [address] [place] [address] Lan Gray MD Infrarenal abdominal aortic aneurysm (AAA) without rupture (CMS/HCC) (Primary Dx) 03/19/2025 1:14 PM EDT - 03/19/2025 11:59 PM EDT Hospital Encounter [facility] [address] [place] [address] Infrarenal abdominal aortic aneurysm (AAA) without rupture (CMS/HCC) Discharge Disposition: Home or Self Care 03/19/2025 Travel 03/12/2025 Telephone [facility] [place] [address] [place] [address] Suzanna Brooke RN 02/06/2025 Orders Only [facility] [place] [address] [place] [address] Stefanie Tony, RN Abdominal aortic aneurysm (AAA) [...] Health Maintenance Due Date Last Done Comments [facility]-Diabetes: Hemoglobin A1C 1953 [facility]-Hepatitis C Screening 1953 [facility]-Medicare Annual Wellness (AWV) 1953 [facility]-Infant/Child/Adol SDOH Screenings 1953 Diabetes: Dental Exam 1963 [facility]- SDOH Screenings 1971 [facility]-Adult SDOH Screenings 1971 [facility]-DTaP,Tdap,and Td Vaccines (1 - Tdap) 1972 [facility]-Pneumococcal Vaccine: 50+ Years (1 of 2 - PCV) 1972 CT Colonography 1998 Colonoscopy 1998 FIT-DNA 1998 FIT 1998 FOBT 1998 Sigmoidoscopy 1998 [facility]-Colorectal Cancer Screening 1998 [facility]-Zoster Vaccines (1 of 2) 2003 [facility]-RSV Vaccine: 60+ Years or (1 - Risk 60-74 years 1-dose series) 2013 [facility]-Abdominal Aortic Aneurysm (AAA) Screening 2018 [facility]-BDXKK-[id number] Vaccine (3 - Moderna risk series) 04/04/2021 [...] this topic Medical Devices Implanted Type Area Supervisor Rolling Room Device Identifier Shelf Expiration Date Model / Serial / Lot Eye Gold Weight Eye Gold Weight Right: Ear 16mm (Prox) X 20mm (Distal) X 146mm Total Covered, [employer]urant Ii Aaa Contralateral Limb Stent Graft Implanted:Qty: 1 on 12/22/2021 by Lan Gray MD at [facility] Stent 08/20/2023 [id number] / [id number] / [id number] Description:Ref#[id number] E Endurant Iis Bifurcated [id number] - [id number] Implanted:Qty: 1 on 12/19/2021 by Lan Gray MD at [facility] N/A: Aorta [employer] [facility]-[id number] 07/08/2023 [id number] / [id number] / [id number] Endurant Ii Contra Limb [id number] - [id number] Implanted:Qty: 1 on 12/19/2021 by Lan Gray MD at [facility] Right: Arterial [employer] [facility]-[id number] 07/16/2023 [id number] / [id number] / [id number] Procedures Procedure Name Priority Date/Time Associated [...] Result from Last 3 Months Insurance [employer] [facility] MEDICAID [facility] MEDICARE Advance Directives * Full Code (Latest Code Status on File) Date Activated Date Inactivated Comments 12/19/2021 11:13 AM 12/21/2021 3:38 PM Question Answer Comments Patient has decision-making capacity? Yes Care Teams Product Assurance Engineer Relationship Specialty Start Date End Date Teo Dominguez MD [address] [facility] [address] PCP - General 11/08/20 See Gann MD [address] [facility] [address] [place] [address] Surgeon Neurosurgery 01/07/21 Rufina Shrestha DDS [address] [facility] [address] [place] [address] Dentist Dentist 08/19/22 Varinder Dey DMD [address] [place] [address] Dentist 08/19/22
--- OUTSIDE RECORDS SUMMARY | 2025-04-13 15:16 | XMS_ITS | Encounter Summary ---
Author Organization [employer] ([place] Address [address] [place] [address] Care Team Providers Care Pca Name Role Phone Unavailable Primary Care Provider Unavailabl e Encounter Details Date Type Department Care Team (Late st Contact Info) Description 10/30/2020 Transcribed Document [facility] [place] [address] [place] [address] ProviderChristina MD [address] [place] [address] Social History Tobacco Use Types [...] On: 10/30/2020 11:07 EDT by PRIETO MILLS RN-Batch Records Clerk Initial Assessment I Previously Documented Living Environment [...] Is Guardianship Needed : No PRIETO MILLS RN-Batch Records Clerk - 10/30/2020 11:07 EDT Initial Assessment II Sensory and Motor Deficits : None Current Home Treatments and Equipment : None PRIETO MILLS RN-Batch Records Clerk - 10/30/2020 11:07 EDT Discharge Needs I Anticipated Discharge Date : 10/31/2020 EDT Anticipated Discharge To, CM : Home with family care Current Home Treatment/Equipment : Current Home Treatment/Equipment No qualifying data available. Post Acute/Home Treatments : None Documentation Status Complete : Yes PRIETO MILLS RN-Batch Records Clerk - 10/30/2020 11:07 EDT Discharge Needs II Professional Skilled Services : Professional Skilled Services No qualifying data available. Needs Assistance with Transportation : No PRIETO MILLS RN-Batch Records Clerk - 10/30/2020 11:07 EDT Narrative Note Narrative Note : Received from outside facility to here due to headache, placed in observation. Neurology has been consulted. Met with Pt at the bedside. Role of CM explained. Pt states that he is ADL independent, lives home alone, but has his sammarinese yeager (like my service dog). Plans are to return home when discharged. Pt states that he has bulging discs and wonders if these are causing his issues. No needs anticipated/verbalized at this time. RRS is low @ 31, boost 5. CM will follow. PRIETO MILLS RN-Batch Records Clerk - 10/30/2020 11:07 EDT documented in this encounter Plan of Treatment Not on file documented as of this encounter Visit Diagnoses Not on filedocumented in this encounter
--- OUTSIDE RECORDS SUMMARY | 2025-04-13 15:16 | XMS_ITS | Clinical Summary ---
Author Organization [employer] ([place], [place], [place], [place]) Address [address] [place] [address] Care Team Providers Care Apparel Cutter Name Role Phone Unavailable Primary Care Provider [...]
--- OUTSIDE RECORDS SUMMARY | 2025-04-13 15:16 | XMS_ITS | Referral Summary ---
Author Organization [employer] ([place], [place], [place]) Address [address] [place] [address] Care Team Providers Care Vocal Performer Name Role Phone Unavailable Primary Care Provider [...]
--- OUTSIDE RECORDS SUMMARY | 2025-04-13 15:16 | XMS_ITS | Encounter Summary ---
Author Organization [employer] ([place], [place], [place], [place]) Address [address] [place] [address] Care Team Providers Care Survey Research Manager Name Role Phone Unavailable Primary Care Provider Unavailabl e Encounter Details Date Type Department Care Team (Late st Contact Info) Description 10/31/2020 Transcribed Document [facility] [place] [address] [place] [address] ProviderChristina MD [address], [place] [id number] Social History Tobacco Use Types Packs/Day Years [...] PHYSICAL THERAPIST NON-EXEMPT - 10/31/2020 16:28 EDT Skilled Nursing Goals Mobility/Bed Mobility LTG PT Grid Goal [...]
--- OUTSIDE RECORDS SUMMARY | 2025-04-13 15:16 | XMS_ITS | Encounter Summary ---
Author Organization [employer] ([place], [place], [place], [place]) Address [address] [place] [address] Care Team Providers Care Manager Msw Name Role Phone Unavailable Primary Care Provider Unavailabl e Encounter Details Date Type Department Care Team (Late st Contact Info) Description 10/30/2020 Transcribed Document [facility] [facility] [address] [place] [address] ProviderChristina MD [address] [place] [address] Social History Tobacco Use Types [...] 10/30/2020 12:24 EDT Electronically signed by [facility] Conversion Junior Electrical Engineer Cerner at 10/14/2022 11:48 AM CDT documented in this encounter Plan of Treatment Not on file documented as of this encounter Visit Diagnoses Not on filedocumented in this encounter
--- OUTSIDE RECORDS SUMMARY | 2025-04-13 15:16 | XMS_ITS | Data Portability ---
Author Organization [facility] [place] [facility] [place] Address [address] [place] [address] Assessment No assessment recorded. Plan of Treatment Reminders Order Date Submit Date Provider Last Modified By Organization Details Last Modified Time Details Appointments FOLLOW UP 15 2024 01:30P Saumya Pineda PA-C Not available Not available Not available Lab rapid flu (A+B) [address], [address] [place], [address], 03/13/2025 14:07:21 rapid SARS CoV 2 Ag, QL, IA, upper respirato ry specimen [address], [address] [place], [address], 03/13/2025 14:07:21 HbA1c (hemoglob in A1c), blood [address], [address] [place], [address], 02/27/2025 11:26:22 microalbu min/creat inine, mass ratio, urine [address], [address] [place], [address], 02/27/2025 11:26:22 Referral None recorded. Procedures None recorded. Surgeries None recorded. Imaging MRI, brain, w/o contrast 2024 025 [email or web address] [facility] [address], [place], [address], 03/22/2025 15:12:30 Medication Orders azithromy sheng 250 mg tablet 2024 025 [facility], [address] [place] [address], [facility], [place], [address], 03/13/2025 14:11:13 prednison e 20 mg tablet 2024 025 [facility], [address] [place] [address], [facility], [place], [address], 03/25/2025 05:02:38 Lidoderm 5 % topical patch 2024 025 [facility], [address] [place] [address], [facility], [place], [address], 02/27/2025 11:33:59 Ubrelvy 100 mg tablet 2024 025 [facility], [address] [place] [address], [facility], [place], [address], 02/27/2025 11:33:59 ofloxacin 0.3 % eye drops 2024 025 [facility], [address] [place] [address], [facility], [place], [address], 02/27/2025 11:33:59 Patient TargetsNo targets recorded. Patient Instructions Encounter Date Encounter Id Patient Instructions Last Modified By Organization Details Last Modified Time 02/27/2025 [id number] abdominal pain: care instructions [email or web address] Not available 02/27/2025 11:27:30 learning about type 2 diabetes [id number] Not available 02/27/2025 11:26:22 type 2 diabetes: care instructions [id number] Not available 02/27/2025 11:26:22 03/13/2025 [id number] bronchitis: care instructions [email or web address] Not available 03/13/2025 14:07:04 Reason for Referral None Reported. Results Created Date Observation Date Name Description Value Unit Range Abnormal Flag Note LastModifiedBy Organization Detail LastModifiedTime 02/28/20 25 02/27/2025 micro album in/cr eatin ine, mass ratio , urine Microalbumin 10 mg/L Not Available [address], [address], 02/27/2025 11:01:14 02/28/20 25 02/27/2025 micro album in/cr eatin ine, mass ratio , urine Creatinine 200 mg/dL Not Available [address], [address], 02/27/2025 11:01:14 02/28/20 25 02/27/2025 micro album in/cr eatin ine, mass ratio , urine Ratio <30 mg/g Not Available [address], [address], 02/27/2025 11:01:14 02/28/20 25 02/27/2025 HbA1c (hemo globi n A1c), blood HbA1c 5.6 % Not Available [address], [address], 02/27/2025 10:55:06 03/13/20 25 03/13/2025 rapid SARS CoV 2 Ag, QL, IA, upper respi rator y speci men SARS CoV Ag negati ve Not Available [address], [address], 03/13/2025 13:27:31 03/13/20 25 03/13/2025 rapid flu (A+B) Flu A negati ve Not Available [address] [place], [address], 03/13/2025 13:27:22 03/13/20 25 03/13/2025 rapid flu (A+B) Flu B negati ve Not Available [facility] [address] [facility], [place], [address], 03/13/2025 13:27:22 02/28/20 25 09/17/2024 CT, abdom en + pelvi s, w/o contr ast No observ ation record ed. [email or web address] [facility] (Med Record) [address], [place], [address], 02/27/2025 12:05:03 Result Notes None recorded. Problems Name Problem SNOMED Code Status Onset Date Resolution Date Notes Provider Name and Address Organization Details Recorded Time Chronic low back pain 264152057 Active 2024 LOUIE Quevedo [address] [place] [address], [address], [employer] 11:25:21 Type 2 diabetes mellitus 21339515 Active 2024 LOUIE Quevedo [address] [place] [address], [address], [employer] 11:25:45 Migraine 75022898 Active 2024 LOUIE Quevedo [address] [place] [address], [address], [employer] 11:25:52 Generalized abdominal pain 945077401 Active 2024 LOUIE Quevedo [address] [place] [address], [address], [employer] 11:27:15 Anxiety 51442069 Active 2024 LOUIE Quevedo [address] [place] [address], [address], [employer] 11:13:54 Bronchitis 60440144 Active 2024 LOUIE Quevedo [address] [place], [address], [facility] [employer]. 14:06:18 Problem Notes None recorded. Procedures Surgical History Date Name Laterality Status Provider Name and Address Organization Details Recorded Time Cataract Surgery completed [employer] 02/27/2025 10:41:47 Colposcopy completed [employer] [facility] [employer] 02/27/2025 10:41:47 Eye Surgery completed [employer] [facility] [employer] 02/27/2025 10:41:47 Cosmetic Surgery completed [employer]. 02/27/2025 10:41:47 repair of aneurysm of aorta completed [employer]. 02/27/2025 10:55:36 Imaging Results None recorded. Procedure Notes None recorded. Medical Equipment None Reported. Allergies Allergen ID Allergen Name Allergen Category Reaction Reaction Severity Criticality Documentation Date Start Date Code Code System Note Provider Name and Address Organization Details Recorded Time 99523 Product containin g penicilli n (product) medicatio n rash Not available Not available 02/27/2025 70381 8001 SNOMED [employer] 10:41:46 63946 Substance with sulfonami de structure and antibacte rial mechanism of action (substanc e) medicatio n other Not available Not available 02/27/2025 66442 8003 SNOMED [employer] 10:41:46 87303 latex environme nt,medica tion other Not available Not available 02/27/2025 00267 91 RxNorm [employer], [employer] 10:41:46 Medications Name Sig Start Date [...] and Address Organization Details Last Updated DateTime 5 78237.0 1 g 30.1 kg/m2 172.72 cm 95 % 95 % 60 /min 98.2 [degF] 126/80 mm[Hg] [employer] 5 10:56:30 Date Recorded Body height Body mass index (BMI) Body weight Oxygen saturation Oxygen saturation in Arterial blood by Pulse oximetry Heart rate Body temperature Systolic And Diastolic Provider Name and Address Organization Details Last Updated DateTime 5 172.72 cm 30.6 kg/m2 19413.0 7 g 94 % 94 % 64 /min 98.4 [degF] 100/64 mm[Hg] [employer] 5 13:26:34 Social History Question Answer Notes LastModified by Organizat ion Details LastModified Time Tobacco Smoking Status Former Smoker [employer] 02/27/2025 10:53:37 Do You Have An Advance Directive? No Information not available 02/27/2025 Is Your Home Air Conditioned? Yes Information not available 02/27/2025 What Type Of Diet Are You Following? DIABETIC Information not available 02/27/2025 Have There Been Any Changes To Your Family Or Social Situation? No Information not available 02/27/2025 When Did You Quit Smoking? 16+yearssince lastcigarcharity 2004 Stop Date Information not available 02/27/2025 Which Of Your Hands Is Dominant? Right Information not available 02/27/2025 Do You Have A Medical Power Of Linux Server Administrator? No Information not available 02/27/2025 What Was [...] anxious, or unable to sleep at night)? [id number] Information not available 02/27/2025 Family History Relationship [...] (GERD) Y Stroke Y Thyroid Problems Y GI Problems Y Depression Y Asthma Y High Cholesterol Y Hepatitis Y Headaches Y Hypertension Y Immunizations Vaccine Type Date Status Note Provider Nam e and Address Organization Details Recorded Time Influenza, split virus, trivalent, preservative 1 completed Not Available [facility] 03/13/2025 13:20:42 Influenza, split virus, trivalent, preservative 3 completed Not Available [facility] 03/13/2025 13:20:42 Influenza, split virus, trivalent, preservative 4 completed Not Available [facility] 03/13/2025 13:20:42 Influenza, split virus, trivalent, preservative 5 completed Not Available [facility] 03/13/2025 13:20:42 Influenza, split virus, quadrivalent, preservative 7 completed Not Available [facility] 03/13/2025 13:20:42 Influenza, split virus, quadrivalent, PF 8 completed Not Available [facility] 03/13/2025 13:20:42 Influenza, high-dose, trivalent, PF 0 completed Not Available [facility] 03/13/2025 13:20:42 Influenza, high-dose, trivalent, PF 0 completed Not Available [facility] 03/13/2025 13:20:42 COVID-19, mRNA, LNP-S, PF, 100 mcg/0.5mL dose or 50 mcg/0.25mL dose 1 completed Not Available [facility] 03/13/2025 13:20:42 COVID-19, mRNA, LNP-S, PF, 100 mcg/0.5mL dose or 50 mcg/0.25mL dose 1 completed Not Available [facility] 03/13/2025 13:20:42 Influenza, high-dose, trivalent, PF 4 completed Not Available [facility] 03/13/2025 13:20:42 Past Encounters Encounter ID Performer Location Encounter Start Date Encounter Closed Date Diagnosis/Indication Diagnosis SNOMED-CT Code Diagnosis ICD10 Code Diagnosis IMO Codes Diagnosis Note [id number] Disha Pineda [address] [address] 02/27/2025 10:40:23 02/27/2025 11:25:04 Internal hordeolum of right lower eyelid 6146956468 93372 H00.103 1629559 Chronic low back pain 27 4177237 M54.50 G89.29 7428074342 Type 2 leslie betes mellitus 85597707 E11.9 13939038 Migraine 67928146 G43.90 9 42018 Generalize d abdominal pain 168417078 R10.84 999101 Reschedule EGD and colonoscop y [id number] LOUIE Quevedo [address] [address] 03/13/2025 13:13:39 03/13/2025 13:53:05 Pulmonary congestion 17429163 R09.89 767788 Bronchitis 94295215 J40 92056 Health Concerns Section Related Observation LastModified by Organization Detai ls LastModified Time None Recorded Concern Status LastModified by Organization Details LastModified Time None Recorded Advance Directives Directive N: Payers Insurance Date Sequence Insurance Name Policy Number Policy Luciano Covered Member ID Luciano Member ID Guarantor Name 03/07/[address] [facility] (MEDICARE REPLACEMENT/AD VANTAGE - HMO) HEMALATHA Gigi [place] Sr [id number] Gigi [place] 03/07/2025 [place] [facility] KYDSNEVIN Matsonny An [id number] Gigi An 03/10/[address] [facility] COMMUNITY PLAN - DUAL ELIGIBLE (MEDICARE REPLACEMENT/AD VANTAGE - HMO) HEMALATHA Gigi [place] Sr [id number] Gigi [place] 03/14/2025 2 [facility] (MEDICAID REPLACEMENT - HMO) [id number] Gigi Nolan [id number] Gigi Nolan Notes Date Note Type Note Provider Name [...] suture a few days ago. LOUIE Quevedo [address] [place] [address], [address], [facility] 03/02/2025 15:26:09 03/13/2025 text/html ROS as noted in the HPI Patient states that Ubrelvy has helped a lot with his headaches.Lidoderm patches have helped with his low back.He was scheduled for MRI last week but got sick. Still has congestion, cough, wheezing, SOA. LOUIE Quveedo [address] [place], [address], [facility] 03/13/2025 15:52:30
--- OUTSIDE RECORDS SUMMARY | 2025-04-13 15:16 | XMS_ITS | Encounter Summary ---
Author Organization [employer] ([place], [place], [place], [place]) Address [address] [place] [address] Care Team Providers Care Cat Scan Tech Name Role Phone Unavailable Primary Care Provider Unavailabl e Encounter Details Date Type Department Care Team (Late st Contact Info) Description 10/31/2020 Transcribed Document [facility] [place] Family Medicine [address] [place] [address] ProviderChristina MD [address] [place] [address] Social History Tobacco Use Types [...] with your condition: Managing pain ??? Take kzmt-ury-ydcynbk and prescription medicines only as told by [...] provider. Document Revised: 01/02/2019 Document Reviewed: 01/02/2019 [employer] Patient Education ? 2020 [employer] documented in this encounter Plan of Treatment Not on file documented as of this encounter Visit Diagnoses Not on filedocumented in this encounter
--- OUTSIDE RECORDS SUMMARY | 2025-04-13 15:16 | XMS_ITS | Encounter Summary ---
Author Organization [employer] ([place], [place], [place]) Address [address] [place] [address] Care Team Providers Care Contract Technical Writer Name Role Phone Unavailable Primary Care Provider Unavailabl e Encounter Details Date Type Department Care Team (Late st Contact Info) Description 10/31/2020 Transcribed Document [facility] [place] Family Medicine [address] [place] [address] ProviderChristina MD [address] [place] [phone] Social History Tobacco Use Types Packs/Day Years [...] Health Plan: [employer] PPO Policy Number: [id number] Authorization Number: Insurance 2 Health Plan: [facility] Policy Number: [id number] Authorization Number: Insurance Primary Name : [employer] PPO Policy Number: [id number] Authorization Status-Primary : Opo status approv Authorized Service Begin Date-Primary : 10/29/2020 EDT Observation Authorization Nbr-Primary : [id number] Historical Authorization Comments-Primary : Comment 1: Submitted for and obtained OBS approval from [facility] OBS auth# [id number] (CATE KOHLER, Commissary Worker 10/30/2020 13:47) Nasima Salgado Rn-Utilization Review - 10/31/2020 9:22 EDT Electronically signed by [facility], [facility] Conversion Slubber Runner Cerner at 10/14/2022 11:25 AM CDT documented in this encounter Plan of Treatment Not on file documented as of this encounter Visit Diagnoses Not on filedocumented in this encounter
--- OUTSIDE RECORDS SUMMARY | 2025-04-13 15:16 | XMS_ITS | Encounter Summary ---
Author Organization [employer] ([place], [place], [place], [place]) Address [address] [place] [address] Care Team Providers Care Cma Name Role Phone Unavailable Primary Care Provider Unavailabl e Encounter Details Date Type Department Care Team (Late st Contact Info) Description 10/31/[address] [facility] [place] [address] [place] [address] ProviderChristina MD [address] [place] [address] Social History Tobacco Use Types [...]
--- OUTSIDE RECORDS SUMMARY | 2025-04-13 15:16 | XMS_ITS | Encounter Summary ---
Author Organization [email or web address] ([place], [place], [place], [place]) Address [address] [place] [address] Care Team Providers Care Plant Maintenance Mechanic Name Role Phone Unavailable Primary Care Provider Unavailabl e Encounter Details Date Type Department Care Team (Late st Contact Info) Description 10/31/2020 Transcribed Document [facility] [place] [address] [place] [address] ProviderChristina MD [address] [phone] Social History Tobacco Use Types Packs/Day Years [...] On: 10/31/2020 13:45 EDT by PRIETO MILLS RN-[place] Clerk Final Discharge Planning Discharge Arrangements : Patient [...] : Yes Discharge To Care Management : Home/Residential/Long-Term or Self Care -01 PRIETO MILLS RN-[place] Clerk - 10/31/2020 13:45 EDT Final Narrative Note Final Narrative Note : Discharged to home, agreeable. No needs verbalized at this time. PRIETO MILLS RN-[place] Clerk - 10/31/2020 13:45 EDT documented in this encounter Plan of Treatment Not on file documented as of this encounter Visit Diagnoses Not on filedocumented in this encounter
--- OUTSIDE RECORDS SUMMARY | 2025-04-13 15:16 | XMS_ITS | Encounter Summary ---
Author Organization [employer] ([place], [place], [place], [place]) Address [address] [place] [address] Care Team Providers Care Torpedo Worker Name Role Phone Unavailable Primary Care Provider Unavailabl e Encounter Details Date Type Department Care Team (Late st Contact Info) Description 10/31/[address] [facility] [place] Family Medicine [address] [place] [address] ProviderChristina MD [address] [place], [...]
--- OUTSIDE RECORDS SUMMARY | 2025-04-13 15:16 | XMS_ITS | Encounter Summary ---
Author Organization [employer] ([place], [place], [place], [place]) Address [address] [place] [address] Care Team Providers Care Reed Fixer Name Role Phone Unavailable Primary Care Provider Unavailabl e Encounter Details Date Type Department Care Team (Late st Contact Info) Description 10/31/2020 Transcribed Document [facility] [place] [address] [place] [address] ProviderCrhistina MD [address] [place] [address] Social History Tobacco Use Types Packs/Day Years Used Date Smoking Tobacco: Never Assessed Sex and Gender Information Value Date Recorded Sex Assigned at Not on file Legal Sex Male 1:42 PM CDT Gender Identity Not on file Sexual Orientation Not on file documented as of this encounter Miscellaneous Notes * Cerner Conversion Note - Christina ProviderMD - 10/31/2020 1:15 PM CDT [facility] [place] [address] SHANNAN SAMANIEGO SR :1955 Visit [...] call for a follow up appointment with [facility]. Where: [address] [facility] [address] [place] [address]- Business (1) Medications What How Much When Instructions Next Dose acetaminophen/ butalbital/ caffeine (Fioricet oral capsule) 1 Capsule(s) Oral Every 6 Hours as needed for Headache Duration: 3 Day(s) Printed Prescription atorvastatin (atorvastatin 40 mg oral tablet) 1 Tablet(s) Oral Every Day Duration: 90 Day(s) Pickup at [facility] sucralfate (Carafate 1 g/ 10 mL oral suspension) 10 Milliliter(s) Oral Before Meals Pickup at [facility] LORazepam (LORazepam 0.5 mg oral tablet) [...] Hours as needed for Nausea Pharmacy Information [facility]: [address] [facility] [address] [place], [place] [phone] Take your medications faithfully. Do NOT skip [...] with your condition: Managing pain ??? Take tfzm-rqq-syomkga and prescription medicines only as told by [...] provider. Document Revised: 01/02/2019 Document Reviewed: 01/02/2019 [employer] Patient Education ?? 2020 [employer]. acetaminophen, butalbital, and caffeine (a SEET a [...] Acetaminophen is a pain reliever and fever pathology technologist. Butalbital is in a group of drugs [...] may report side effects to FDA at 1-532-LMZ-5170. What other drugs will affect acetaminophen, butalbital, [...] acetaminophen, butalbital, and caffeine, including prescription and iwbj-zwy-ktnkqqd medicines, vitamins, and herbal products. Tell each [...] to ensure that the information provided by [employer] ('[employer]') is accurate, up-to-date, and complete, but no guarantee is made to that effect. Drug information contained herein may be time sensitive. [employer] information has been compiled for use by healthcare practitioners and consumers in the [place] and therefore [employer] does not warrant that uses outside of the [place] are appropriate, unless specifically indicated otherwise. [employer] drug information does not endorse drugs, diagnose patients or recommend therapy. [employer] drug information is an informational resource designed [...] effective or appropriate for any given patient. [employer] does not assume any responsibility for any aspect of healthcare administered with the aid of information [employer] provides. The information contained herein is not intended to cover all possible uses, directions, precautions, warnings, drug interactions, allergic reactions, or adverse effects. If you have questions about the drugs you are taking, check with your doctor, nurse or pharmacist. Copyright 8613-8561 [employer]. Version: 6.02. Revision Date: 07/22/2015. sucralfate (oral) [...] may report side effects to FDA at 5-760-IUP-4079. What other drugs will affect sucralfate? Other drugs may affect sucralfate, including prescription and xukq-qhf-zpkprdp medicines, vitamins, and herbal products. Tell your [...] to ensure that the information provided by [employer] ('[employer]') is accurate, up-to-date, and complete, but no guarantee is made to that effect. Drug information contained herein may be time sensitive. [employer] information has been compiled for use by healthcare practitioners and consumers in the [place] and therefore [employer] does not warrant that uses outside of the [place] are appropriate, unless specifically indicated otherwise. [employer] drug information does not endorse drugs, diagnose patients or recommend therapy. [employer] drug information is an informational resource designed [...] effective or appropriate for any given patient. [employer] does not assume any responsibility for any aspect of healthcare administered with the aid of information [employer] provides. The information contained herein is not intended to cover all possible uses, directions, precautions, warnings, drug interactions, allergic reactions, or adverse effects. If you have questions about the drugs you are taking, check with your doctor, nurse or pharmacist. Copyright 5258-4439 [facility] [employer]. Version: 03.28. Revision Date: 08/29/2020. atorvastatin (a [...] may report side effects to FDA at 5-881-AIK-8915. What other drugs will affect atorvastatin? Certain [...] may affect atorvastatin. This includes prescription and trpk-hhh-xcfpcjx medicines, vitamins, and herbal products. Not all [...] to ensure that the information provided by [employer] ('[employer]') is accurate, up-to-date, and complete, but no guarantee is made to that effect. Drug information contained herein may be time sensitive. [employer] information has been compiled for use by healthcare practitioners and consumers in the [place] and therefore [employer] does not warrant that uses outside of the [place] are appropriate, unless specifically indicated otherwise. [employer]'s drug information does not endorse drugs, diagnose patients or recommend therapy. [employer] drug information is an informational resource designed [...] with your doctor, nurse or pharmacist. Copyright 2097-4058 [employer]. Version: 22.02. Revision Date: 08/06/2020. Emergency Awareness [...] Assistance with quitting is available by contacting 3-959-VBYP-NOW. This is a free resource providing counseling, [...] range between ( 0.0 and 7.0 ) [place] #: 0.41 K/uL -- Normal range between ( 0.16 and 1.00 ) [place] #: 0.10 x10(3)/uL -- Normal range between ( 0.00 and 0.80 ) [place] %: 7.5 % -- Normal range between [...] was given the opportunity to ask questions. Patient/Professor Of English Name: Patient/Professor Of English Signature: Relationship to Patient: Clinician/Hospital Professor Of English Signature: Date: documented in this encounter Plan of Treatment Not on file documented as of this encounter Visit Diagnoses Not on filedocumented in this encounter
== END 2025-04-13 23:59 | disposition home or self-care (01) ==
LOC: RAD 15:12
PROVIDERS: PCP Physician Assistant; Visit Provider Physician Assistant
DX: G43.909 Migraine, unspecified, not intractable, without status migrainosus (principal); R90.0 Intracranial space-occupying lesion found on diagnostic imaging of central nervous system; J32.8 Other chronic sinusitis; Z86.73 Personal history of transient ischemic attack (TIA), and cerebral infarction without residual deficits; Z98.890 Other specified postprocedural states
CPT/HCPCS: 70551

== ENCOUNTER 2025-05-08 07:51 | Outpatient (CLI) | payer MEDICARE, OTHER, SELFPAY ==
--- OUTSIDE RECORDS SUMMARY | 2025-03-19 12:14 | XMS_ITS | Encounter Summary ---
Author Organization Healthcare Address [address] [place] [address] Care Team Providers Care Transactional Paralegal Name Role Phone Teo Dominguez MD Primary Care Provider + [phone] See Gann MD Unavailable [phone] Rufina Shrestha DDS Unavailable + Varinder Dey DMD Unavailable [phone] Reason for Referral * Imaging (Routine) - Closed Specialty Diagnoses / Procedures Referred By Contac t Referred To Contact Radiology Diagnoses Infrarenal abdominal aortic aneurysm (AAA) without rupture (CMS/HCC) Procedures CT Angio Abdomen Pelvis Lan Gray MD [address] [address] Phone: tel: fax: Referral ID Status Reason Start Date Expiration Date Visits Re quested Visits Authorized [id number] Closed 03/01/2024 08/31/2025 1 1 Reason for Visit * Imaging (Routine) - Closed Specialty Diagnoses / Procedures Referred By Contac t Referred To Contact Radiology Diagnoses Infrarenal abdominal aortic aneurysm (AAA) without rupture (CMS/HCC) Procedures CT Angio Abdomen Pelvis Lan Gray MD [address] [address] Phone: tel: fax: Referral ID Status Reason Start Date Expiration Date Visits Re quested Visits Authorized [id number] Closed 03/01/2024 08/31/2025 1 1 Encounter Details Date Type Department Care Team (Latest Contact Info) Description 03/19/2025 1:14 PM EDT - 03/19/2025 11:59 PM EDT Hospital Encounter [facility] [address] [place] [address] Infrarenal abdominal aortic aneurysm (AAA) without rupture (CMS/HCC) Discharge Disposition: Home or Self Care Social History Tobacco Use Types Packs/Day Years Used Date Smoking Tobacco: Former Cigarettes 3 2006 Smokeless Tobacco: Never Alcohol Use Standard [...] on file documented as of this encounter Functional Status * Calculated C-SSRS Risk Score (Lifetime/Recent) Answer Date of Assessment Author No Risk Indicated 03/19/2025 2:53 PM EDT Morales, Jose Velazquez RN * Question Answer Date of Assessment Author 1. Wish to be (Past 1 Month) No 025 2:53 PM EDT Morales, Carleen Velazquez RN 2. Non-Specific Active Suici florecita Thoughts (Past 1 Month) No 03/19/2025 2:53 PM EDT Morales, Carleen Velazquez RN 6. Suicidal Behavior (Lifetime) No 2:53 PM EDT MoralesCarleen RN documented as of this encounter Medications at Time of Discharge Accu-Chek Kiki Plus test strip 01/23/2020 Accu-Chek Softclix Lancets lancets 01/23/2020 alfuzosin (Uroxatral) 10 MG 24 hr tablet 1 tablet (10 mg) 1 (one) time each day. 11/20/2021 aspirin 81 MG EC tablet Take 1 tablet (81 mg) by mouth 1 (one) time each day. atorvastatin (Lipitor) 40 MG tablet 1 tablet (40 mg) 1 (one) time each day. 10/22/2021 Blood Glucose Monitoring Suppl (Accu-Chek Kiki Plus) w/Device kit 01/23/2020 cetirizine (ZyrTEC) 10 MG tablet .COMPLEX 12/17/2023 fluticasone (Flonase) 50 MCG/ACT nasal spray if needed. 10/27/2021 hydroCHLOROthiazide (Microzide) 12.5 MG capsule 1 capsule (12.5 mg) 1 (one) time each day in the morning. 09/16/2021 levothyroxine (Synthroid, Levoxyl) 75 MCG tablet 1 tablet (75 mcg) 1 (one) time each day. 08/08/2015 lidocaine (Lidoderm) 5 % patch Apply 1 patch topically daily. Remove & discard patch within 12 hours or as directed by MD. LORazepam (Ativan) 0.5 MG tablet 1 tablet (0.5 mg) 2 (two) times a day if needed. 11/28/2021 losartan (Cozaar) 50 MG tablet Take 1 tablet (50 mg) by mouth 1 (one) time each day. 10/22/2020 metFORMIN (Glucophage) 500 MG tablet 1 tablet (500 mg) 1 (one) time each day with breakfast. 08/08/2015 methocarbamol (Robaxin) 500 MG tablet Take 1 tablet (500 mg) by mouth if needed for muscle spasms. metoprolol succinate XL (Toprol-XL) 25 MG 24 hr tablet 1 tablet (25 mg) 1 (one) time each day. 10/27/2021 zfrxrgzt-ajcifdaeo-f examethamethasone (Polydex) 3.5-45536-1.1 ointment ophthalmic ointment 03/18/2023 omeprazole (PriLOSEC) [address] capsule 1 capsule (20 mg) 1 (one) time each day. 11/05/2021 ondansetron (Zofran) 4 MG tablet 1 tablet (4 mg) every 8 (eight) hours if needed. 08/14/2020 ondansetron ODT (Zofran-ODT) 4 MG disintegrating tablet 11/04/2023 pantoprazole (Protonix) 40 MG EC tablet 01/31/2022 ranolazine (Ranexa) 500 MG 12 hr tablet Take 1 tablet (500 mg) by mouth 2 (two) times a day. Do not crush, chew, or split. sildenafil (Revatio) 20 MG tablet Take 1 tablet (20 mg) by mouth if needed. sucralfate (Carafate) 1 GM/10ML suspension 02/09/2024 documented as of this encounter Miscellaneous Notes * Eli Mills - Jeannette Serna L - 03/19/2025 1:34 PM EDT Images from the original note were not included. 1639 Caring for Yourself after Contrast Imaging If you had ORAL contrast: ? You can go back to your normal diet and activities as tolerated. ? Drink plenty of fluids, unless told otherwise. If you had IV contrast: ? You can go back to your normal diet and activities as tolerated. ? Drink plenty of fluids, unless told otherwise. ? Leave a bandage on the site for 30 minutes (where the IV was inserted or blood was drawn). If you had Intravesical (bladder) contrast: ? Return to normal diet and activity. What you need to know about delayed reaction to IV contrast What is IV Contrast? ? Contrast is a dye that is put into your body through an IV. ? It is used for imaging scans such as CT scans and MRIs. ? The contrast makes blood vessels, organs and other parts of your body show up better on the scan. What do I need to do after IV contrast? ? Drink lots of fluids. This will help flush the contrast out of your system. ? Drink 2-3 extra glasses or bottles of water within 4 hours of your scan. What is a contrast reaction? ? A contrast reaction is a bad side effect from the contrast dye. ? It is rare but it does happen. ? They can be mild - such as sneezing, itching, or hives. ? They can be severe - such as trouble breathing, throat swelling, and irregular heart beat. When do these reactions happen? ? They often happen right after the contrast is injected. ? Some happen hours after going home. Go to the nearest Emergency Department right away if you have any of these symptoms after you leavethe clinic or hospital. ? Sneezing ? Itching in your mouth, throat, eyes, ears, or skin ? Rash or hives ? Throwing up or stomach sickness ? High heart rate or ?racing? of your heart ? Feeling dizzy or woozy ? Feeling short of breath or like you can?t take a deep breath ? Feeling very anxious for no other reason It is very important that these reactions be treated. Tell the doctor or nurse that you are having a reaction to IV contrast dye. Do not ignore any sign of a reaction! All reactions must be assessed by a doctor. Call 911 if you are alone and your reaction is more than mild sneezing or itching. If you have a mild reaction, call to speak with a Radiologist, explain that you havehad a contrast reaction, as this needs to be added to your medical record. documented in this encounter Plan of Treatment Not on file documented as of this encounter Procedures Procedure Name Priority Date/Time Associated Diagnosis Comments CT ANGIO ABDOMEN PELVIS Routine 03/19/2025 1:49 PM EDT Infrarenal abdominal aortic aneurysm (AAA) without rupture ([facility]) documented in this encounter Results * CT Angio Abdomen Pelvis (03/19/2025 1:49 PM EDT) Anatomical Region Laterality Modality Abdomen, Pelvis Computed Tomogra phy Impressions 03/19/2025 2:34 PM EDT Stable and satisfactory appearance of infrarenal aneurysm repair. CRITICAL RESULT: No COMMUNICATION: Per this written report. By electronically signing this report, I, the attending physician, attest that I have personally reviewed the images/data for the above examination(s) and agree with the final edited report. Drafted by RT Henry on 03/19/2025 2:15 PM Final report signed by Teo Long MD on 03/19/2025 2:34 PM Narrative 03/19/2025 2:34 PM EDT CLINICAL INDICATION: AORTIC DISEASE TECHNIQUE: A CT angiogram of the abdomen and pelvis was performed in noncontrast, arterial, and venous phases. A total of 80 mL of Omnipaque 350 was administered during the examination. Advanced 3D workstation manipulation and review of the data set was performed by the interpreting physician to further define anatomy and possible pathology. Images of areas of interest were created utilizing various techniques. These images were saved and transferred to PACS if significant. The imaging protocol used in this examination was optimized to achieve diagnostic quality with the lowest possible radiation dose in accordance with the principles of ALARA (As Low As Reasonably Achievable). COMPARISON: CT angiogram abdomen and pelvis January 30, 2022, outside abdomen and pelvis CT with contrast September 17, 2024 VASCULAR FINDINGS: Abdominal Aorta: Qualitative Description Of The Aorta: Again noted is a stent graft repair of an infrarenal abdominal aortic aneurysm. No evidence of in-stent stenosis. No endoleak is appreciated. Excluded aneurysm sac is stable compared to the August 2024 exam, but significantly decreased since January 2022. MATHEW is occluded proximally. All other major visceral vessels are patent. At the hiatus: 26mm At the level of the renal arteries: 24mm Infrarenal: 37mm ANCILLARY FINDINGS: No suspicious solid abdominal organ lesions. Several renal cysts. Moderate prostatic enlargement. Procedure Note Teo Long MD - 03/19/2025 CLINICAL INDICATION: AORTIC DISEASE TECHNIQUE: A CT angiogram of the abdomen and pelvis was performed in noncontrast,arterial, and venous phases. A total of 80 mL of Omnipaque 350 wasadministered during the examination. Advanced 3D workstation manipulationand review of the data set was performed by the interpreting physician maycol define anatomy and possible pathology. Images of areas ofinterest were created utilizing various techniques. These images weresaved and transferred to PACS if significant. The imaging protocol used in this examination was optimized to achievediagnostic quality with the lowest possible radiation dose in accordancewith the principles of ALARA (As Low As Reasonably Achievable). COMPARISON: CT angiogram abdomen and pelvis January 30, 2022, outside abdomen and pelvisCT with contrast September 17, 2024 VASCULAR FINDINGS: Abdominal Aorta: Qualitative Description Of The Aorta: Again noted is a stent graft repairof an infrarenal abdominal aortic aneurysm. No evidence of in-stentstenosis. No endoleak is appreciated. Excluded aneurysm sac is stablecompared to the August 2024 exam, but significantly decreased since January2022. MATHEW is occluded proximally. All other major visceral vessels arepatent. At the hiatus: 26mm At the level of the renal arteries: 24mm Infrarenal: 37mm ANCILLARY FINDINGS: No suspicious solid abdominal organ lesions. Several renal cysts. Moderateprostatic enlargement. IMPRESSION: Stable and satisfactory appearance of infrarenal aneurysm repair. CRITICAL RESULT: No COMMUNICATION: Per this written report. By electronically signing this report, I, the attending physician, attestthat I have personally reviewed the images/data for the aboveexamination(s) and agree with the final edited report. Drafted by RT Henry on 03/19/2025 2:15 PM Final report signed by Teo Long MD on 03/19/2025 2:34 PM Lan Gray MD IMG CT PROCEDURES Final Result documented in this encounter Visit Diagnoses Diagnosis Infrarenal abdominal aortic aneurysm (AAA) without rupture (CMS/HCC) documented in this encounter Administered Medications Inactive Administered Medications - up to 3 most recent administrations Medication Order MAR Action Action Date Dose Rate Site iohexol (OMNIPaque) 350 MG/ML injection 100 mL 100 mL, Intravenous, Once in imaging, 1 dose, Starting on Wed03/19/25 at 1333, Until Wed03/19/25 at 1341, Routine, Imaging Protocol Orders Given 03/19/2025 1:41 PM EDT 80 mL documented in this encounter Additional Health Concerns Assessment Noted Time PHQ-9 Depression Total Score: 13 022 12:43 PM EDT A fall risk assessment has been complete d for the patient 03/19/2025 2:54 PM EDT A Body Mass Index follow-up plan has been documented for the patient 03/19/2025 3:46 PM EDT documented as of this encounter Care Teams Transactional Paralegal Relationship Specialty Start Date End Date Teo Dominguez MD [address] [place] [address] PCP - General 11/08/20 See Gann MD [address] [facility] [address] [place] [address] Surgeon Neurosurgery 01/07/21 Rufina Shrestha DDS [address] [place] [address] Dentist Dentist 08/19/22 Varinder Dey, MICHAEL [address] [place] [address] Dentist 08/19/22 documented as of this encounter
--- OUTSIDE RECORDS SUMMARY | 2025-03-19 13:40 | XMS_ITS | Encounter Summary ---
Author Organization Healthcare Address [address] [place] [address] Care Team Providers Care Voice Network Engineer Name Role Phone Teo Dominguez MD Primary Care Provider + [phone] See Gann MD Unavailable [phone] Rufina Shrestha DDS Unavailable + Varinder Dey DMD Unavailable [phone] Reason for Referral * Imaging (Routine) - Pending Review Specialty Diagnoses / Procedures Referred By Akanksha valentino Referred To Contact Cardiology Diagnoses Infrarenal abdominal aortic aneurysm (AAA) without rupture (CMS/HCC) Procedures VAS US Aorta IVC Iliac Vessels Duplex Lan Gray MD [address] [address] Phone: tel: fax: Referral ID Status Reason Start Date Expiration Date Visits Requested Visits Authorized [id number] Pending Review Perform Procedure 03/19/2025 09/18/2026 1 1 Encounter Details Date Type Department Care Team (Latest Contact Info) Description 03/19/2025 2:40 PM EDT Office Visit [facility] 7[address] [facility] 5th Floor [address] [place] [address] Lan Gray MD [id number] [place] [address] Infrarenal abdominal aortic aneurysm (AAA) without rupture (CMS/HCC) (Primary Dx) Social History Tobacco Use Types Packs/Day Years Used Date Smoking Tobacco: Former Cigarettes 3 19 07 985 - 2006 Smokeless Tobacco: Never Tobacco Cessation:Counseling Given: No Alcohol Use Standard Drinks/Week Comments Not Currently [...] on file documented as of this encounter Last Filed Vital Signs Vital Sign Reading Time Taken Comments Blood Pressure 143/75 03/19/2025 2:50 PM EDT Pulse 56 03/19/2025 2:48 PM EDT Temperature 36.3 C (97.4 F) 03/19/2025 2:48 PM EDT Respiratory Rate - - Oxygen Saturation 99% 03/19/2025 2:48 PM EDT Inhaled Oxygen Concentration - - Weight 91.3 kg (201 lb 4.5 oz) 03/19/2025 2:48 P M EDT Height - - Body Mass Index 30.61 03/01/2024 11:18 AM EDT documented in this encounter Functional Status * Calculated C-SSRS Risk Score (Lifetime/Recent) Answer Date of Assessment Author No Risk Indicated 03/19/2025 2:53 PM EDT Jose Morales RN * Question Answer Date of Assessment Author 1. Wish to be (Past 1 Month) No 2:53 PM EDT Carleen Morales RN 2. Non-Specific Active Suici florecita Thoughts (Past 1 Month) No 03/19/2025 2:53 PM EDT Carleen Morales RN 6. Suicidal Behavior (Lifetime) No 2:53 PM EDT Carleen Morales RN documented as of this encounter Miscellaneous Notes * Progress Notes - Lan Gray MD - 03/19/2025 2:40 PM EDT Dear Teo Dominguez MD (Inactive), History of Present Illness The patient is a 69-year-old male who presents for evaluation of an aneurysm. He is accompanied by his granddaughter. He reports overall good health but expresses concern about a potential aneurysm that his primary care physician indicated had grown to 4 cm. He has been under this impression for the past 2 months. He is currently on aspirin and atorvastatin. 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 SOCIAL HISTORY Tobacco: No cigarette smoking for the past 20 years. Recreational Drugs: Smokes marijuana. Vascular Surgery History: (Date - Procedure - Hospital - Doctor) EVAR 12/19/2021 I personally and independently reviewed and interpreted the CT Images from today's visit which showed: 37mm residual AAA, stents patent His chronic comorbid conditions that impact our treatment planning include: I reviewed the following co-morbidities which are stable and controlled: Patient Active Problem List Diagnosis Date Noted Cervicogenic headache 08/19/2022 Atypical face pain 08/19/2022 Type 2 diabetes mellitus, without long-term current use of insulin ([facility]) 02/25/2022 Hypertension 02/25/2022 Class 1 obesity due to excess calories without serious comorbidity in adult 02/25/2022 Abdominal aortic aneurysm (AAA) without rupture ([facility]/HCC) 12/01/2021 Degeneration, intervertebral disc, cervical 10/13/2018 Lumbar facet arthropathy 10/13/2018 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 year old male who we saw today in clinic. I discussed the test interpretations and management with associated orders of the following medical conditions of: Problem List Items Addressed This Visit Abdominal aortic aneurysm (AAA) without rupture ([facility]/HCC) - Primary Relevant Orders VAS US Aorta IVC Iliac Vessels Duplex We will see him back for: Follow up in 1 year (on 03/19/2026). Assessment & Plan 1. Abdominal aortic aneurysm The abdominal aortic aneurysm has shown significant improvement, with a reduction in size from 4.8 cm to 3.7 cm since the initial repair in 2021. There are no signs of leakage, and the stents appear to be functioning well. The aorta is within normal parameters. An ultrasound will be scheduled for further monitoring of the aortic stent graft. 2. Ascending aortic aneurysm The ascending aortic aneurysm measures 4 cm and is not expected to require surgical intervention given the patient's age of 69 years. The patient's warehouse insulation worker will be informed about the presence ofthe ascending aortic aneurysm for continued observation. Risks, benefits, and alternatives of the treatment plan were discussed. The patient was reassured that the abdominal aortic aneurysm is stable and the ascending aortic aneurysm is not of immediate concern. The patient was advised that surgical intervention for the ascending aortic aneurysm is unlikely to be necessary in his lifetime. The importance of regular follow-up and monitoring was emphasized. Follow-up Follow up in 1 year with an ultrasound of the aortic stent graft. documented in this encounter Plan of Treatment Scheduled Orders Name Type Priority Associated Diagnoses Orde r Schedule VAS US Aorta IVC Iliac Vessels Duplex Vascular Ultrasound Routine Infrarenal abdominal aortic aneurysm (AAA) without rupture (CMS/HCC) Expected: 03/19/2026, Expires: 09/20/2026 documented as of this encounter Visit Diagnoses Diagnosis Infrarenal abdominal aortic aneurysm (AAA) without rupture (CMS/HCC)- Primary documented in this encounter Additional Health Concerns Assessment Noted Time PHQ-9 Depression Total Score: 13 022 12:43 PM EDT A fall risk assessment has been complete d for the patient 03/19/2025 2:54 PM EDT A Body Mass Index follow-up plan has been documented for the patient 03/19/2025 3:46 PM EDT documented as of this encounter Care Teams Voice Network Engineer Relationship Specialty Start Date End Date Teo Dominguez MD [address] [place] [address] PCP - General 11/08/20 See Gann MD [address] [place] [address] Surgeon Neurosurgery 01/07/21 Rufina Shrestha DDS [address] [place] [address] Dentist Dentist 08/19/22 Varinder Dey DMD [address] [facility] [address] [place] [address] Dentist 08/19/22 documented as of this encounter
--- NOTE | 2025-05-08 07:53 | MR_ITS ---
FINAL REPORT CLINICAL HISTORY: CEREBELLOPONTINE ANGLE TUMOR, BENIGN NEOPLASM OF NERVES. ABNORMAL MR REJI 04-13-25. HEARING LOSS RIGHT EAR. DIZZINESS COMPARISON: CT, 04/17/2024, prior MRI of the head 04/13/2025 FINDINGS: MRI BRAIN WITHOUT AND WITH CONTRAST, ATTENTION INTERNAL AUDITORY CANALS TECHNIQUE: Multiplanar imaging was performed of the brain with and without Gadolinium infusion. Study included thin section imaging through the internal auditory canals. Diffusion sequences show no signal abnormalities to indicate acute infarct or other process. Brain parenchyma displays a complex cystic mass in the right costophrenic angle, measuring 29 x 20 x 23 mm in size. The mass encases the 7th and 8th cranial nerve roots. On thin T2 weighted images the anterior component of this mass is more hypointense, compared to the surrounding brainstem, with no solid enhancing component. 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 There are calcifications previously seen on the anterior margin of this mass, better seen on CT examination of 04/17/2024. There is evidence of a prior right occipital craniotomy. The ventricles appear normal and no mass effect is present. No abnormal enhancing lesions are identified on the post infusion images. IMPRESSION: Complex cystic mass in the right CP angle as described above. 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 Reviewed, Interpreted and Dictated by Paloma Delgado MD Transcribed by Swathi Amaro Authenticated and [facility]
--- OUTSIDE RECORDS SUMMARY | 2025-05-08 07:54 | XMS_ITS | Encounter Summary ---
Author Organization Healthcare Address [address] [place] [address] Care Team Providers Care Hvac Journeyman Name Role Phone Teo Dominguez MD Primary Care Provider + [phone] See Gann MD Unavailable [phone] Rufina Shrestha DDS Unavailable + Varinder Dey DMD Unavailable [phone] Encounter Details Date Type Department Care Team (Late st Contact Info) Description 04/17/2024 Orders Only External Location [address] [place] [address] Provider, External Social History Tobacco Use Types [...] documented as of this encounter Care Teams Hvac Journeyman Relationship Specialty Start Date End Date Teo Dominguez MD [address] [place] [address] PCP - General 11/08/20 See Gann MD [address] [place] [address] Surgeon Neurosurgery 01/07/21 Rufina Shrestha DDS [address] [place] [address] Dentist Dentist 08/19/22 Varinder Dey DMD [address] [place] [address] Dentist 08/19/22 documented as of this encounter
--- OUTSIDE RECORDS SUMMARY | 2025-05-08 07:54 | XMS_ITS | Encounter Summary ---
Author Organization Healthcare Address [address] [place] [address] Care Team Providers Care Office Correspondent Name Role Phone Teo Dominguez MD Primary Care Provider + [phone] See Gann MD Unavailable [phone] Rufina Shrestha DDS Unavailable + Varinder Dey DMD Unavailable [phone] Encounter Details Date Type Department Care Team (Late st Contact Info) Description 09/17/2024 Orders Only External Location [address] [place] [address] Provider, External Social History Tobacco Use Types [...] documented as of this encounter Care Teams Office Correspondent Relationship Specialty Start Date End Date Teo Dominguez MD [address] [place] [address] [id number] PCP - General 11/08/20 See Gann MD [address] [place] [address] Surgeon Neurosurgery 01/07/21 Rufina Shrestha DDS [address] [place] [address] Dentist Dentist 08/19/22 Varinder Dey DMD [address] [place] [address] Dentist 08/19/22 documented as of this encounter
--- OUTSIDE RECORDS SUMMARY | 2025-05-08 07:54 | XMS_ITS | Clinical Summary ---
Author Organization [facility] Address [address] [place] [address] Care Team Providers Care Complaint Evaluation Supervisor Name Role Phone Teo Dominguez MD Primary Care Provider + [phone] See Gann MD Unavailable [phone] Rufina Shrestha DDS Unavailable + Varinder Dey DMD Unavailable [phone] Allergies Active Allergy Reactions Criticality Noted Date [...] .COMPLEX 4 Active neomycin-polymyxin -dexamethamethason e (Polydex) 3.5-93982-9.1 ointment ophthalmic ointment 3 Active ondansetron ODT [...] Description 03/19/2025 2:40 PM EDT Office Visit [facility] [address] [facility] 5th Floor [address] [place] [address] Lan Gray MD Infrarenal abdominal aortic aneurysm (AAA) without rupture (CMS/HCC) (Primary Dx) 03/19/2025 1:14 PM EDT - 03/19/2025 11:59 PM EDT Hospital Encounter [facility] [address] [place] [address] Infrarenal abdominal aortic aneurysm (AAA) without rupture (CMS/HCC) Discharge Disposition: Home or Self Care 03/19/2025 Travel 03/12/2025 Telephone [facility] [place] [address] [place] [address] Suzanna Brooke RN 02/06/2025 Orders Only [facility] [address] [place] [address] Stefanie Tony, RN Abdominal aortic aneurysm (AAA) [...] Health Maintenance Due Date Last Done Comments [facility]-Diabetes: Hemoglobin A1C 1955 [facility]-Hepatitis C Screening 1955 [facility]-Medicare Annual Wellness (AWV) 1955 [facility]-/Child/Adol SDOH Screenings 1955 Diabetes: Dental Exam 1963 [facility]- SDOH Screenings 1971 [facility]-Adult SDOH Screenings 1971 [facility]-DTaP,Tdap,and Td Vaccines (1 - Tdap) 1972 [facility]-Pneumococcal Vaccine: 50+ Years (1 of 2 - PCV) 1972 CT Colonography 1998 Colonoscopy 1998 FIT-DNA 1998 FIT 1998 FOBT 1998 Sigmoidoscopy 1998 [facility]-Colorectal Cancer Screening 1998 [facility]-Zoster Vaccines (1 of 2) 2003 [facility]-RSV Vaccine: 60+ Years or (1 - Risk 60-74 years 1-dose series) 2013 [facility]-Abdominal Aortic Aneurysm (AAA) Screening 2018 TBV-MCQZW-10 Vaccine (3 - Moderna risk series) 04/04/2021 [...] this topic Medical Devices Implanted Type Area Tracer Lathe Set Up Operator Device Identifier Shelf Expiration Date Model / Serial / Lot Eye Gold Weight Eye Gold Weight Right: Ear 16mm (Prox) X 20mm (Distal) X 146mm Total Covered, Endurant Ii Aaa Contralateral Limb Stent Graft Implanted:Qty: 1 on 12/22/2021 by Lan Gray MD at [facility] Stent 08/20/2023 [id number] / [id number] / [id number] Description:Ref#[id number] Endurant Iis Bifurcated [id number] - [id number] Implanted:Qty: 1 on 12/19/2021 by Lan Gray MD at [facility] N/A: Aorta Medtronic [facility]-[id number] 07/08/2023 [id number] / [id number] / [id number] Endurant Ii Contra Limb [id number] - [id number] Implanted:Qty: 1 on 12/19/2021 by Lan Gray MD at [facility] Right: Arterial [employer] [facility]-[id number] 07/16/2023 [id number] / [id number] / [id number] Procedures Procedure Name Priority Date/Time Associated [...] Result from Last 3 Months Insurance [facility]NA [facility] MEDICAID [facility] MEDICARE Advance Directives * Full Code (Latest Code Status on File) Date Activated Date Inactivated Comments 12/19/2021 11:13 AM 12/21/2021 3:38 PM Question Answer Comments Patient has decision-making capacity? Yes Care Teams Complaint Evaluation Supervisor Relationship Specialty Start Date End Date Teo Dominguez [facility] [address] [facility] [address] PCP - General 11/08/20 See Gann MD [address] [facility] [address] [place] [address] Surgeon Neurosurgery 01/07/21 Rufina Shrestha DDS [address] [facility] [address] [place] [address] Dentist Dentist 08/19/22 Varinder Dey DMD [address] [place] [address] Dentist 08/19/22
--- OUTSIDE RECORDS SUMMARY | 2025-05-08 07:54 | XMS_ITS | Encounter Summary ---
Author Organization [employer] ([place], [place], [place], [place], [place]) Address [address] [place] [address] Care Team Providers Care Assembly Line Upholsterer Name Role Phone Unavailable Primary Care Provider Unavailabl e Encounter Details Date Type Department Care Team (Late st Contact Info) Description 10/30/2020 Transcribed Document [facility] [address] [place] [address] ProviderChristina MD [address] [place] [address] Social History Tobacco Use Types [...] Health Plan: [employer] PPO Policy Number: [id number] Authorization Number: Insurance 2 Health Plan: [facility] Policy Number: [id number] Authorization Number: Insurance Primary Name : [employer] PPO Policy Number: [id number] Authorized Service Begin Date-Primary : 10/29/2020 EDT Historical Authorization Comments-Primary : No Authorization Comments Found Nasima Salgado Rn-Utilization Review - 10/30/2020 13:38 EDT Electronically signed by Donald Freeman [facility] Conversion Industrial Relations Manager Esdras at 10/14/2022 11:42 AM CDT documented in this encounter Plan of Treatment Not on file documented as of this encounter Visit Diagnoses Not on filedocumented in this encounter
--- OUTSIDE RECORDS SUMMARY | 2025-05-08 07:54 | XMS_ITS | Continuity of Care Document ---
Author Organization [facility] Address [address] [place] [address] Assessment No assessment recorded. Plan of Treatment Reminders Order Date Submit Date Provider Last Modified By Organization Details Last Modified Time Details Appointments FOLLOW UP 15 2024 01:30P Saumya Pineda PA-C Not available Not available Not available Lab rapid flu (A+B) [address], [address] [place], [address], 03/13/2025 14:07:21 rapid SARS CoV 2 Ag, QL, [place], upper respirato ry specimen [address], [address] [place], [address], 03/13/2025 14:07:21 Referral None recorded. Procedures None recorded. Surgeries None recorded. Imaging None recorded. Medication Orders azithromy sheng 250 mg tablet 2024 025 [facility], [address], [address], 03/13/2025 14:11:13 prednison e 20 mg tablet 2024 025 [facility], [address], [address], 03/25/2025 05:02:38 Patient TargetsNo targets recorded. Patient Instructions Encounter Date Encounter Id Patient Instructions Last Modified By Organization Details Last Modified Time 03/13/2025 [id number] bronchitis: care instructions Not available 03/13/2025 14:07:04 Reason for Referral None Reported. Results Created Date Observation Date Name Description Value Unit Range Abnormal Flag Note LastModifiedBy Organization Detail LastModifiedTime 02/28/2002/27/2025 micro album in/cr eatin ine, mass ratio , urine Microalbumin 10 mg/L Not Available [facility] [address] [place] [address], [address], 02/27/2025 11:01:14 02/28/20 25 02/27/2025 micro album in/cr eatin ine, mass ratio , urine Creatinine 200 mg/dL Not Available [address], [address], 02/27/2025 11:01:14 02/28/2002/27/2025 micro album in/cr eatin ine, mass ratio , urine Ratio <30 mg/g Not Available [address], [address], 02/27/2025 11:01:14 02/28/2002/27/2025 HbA1c (hemo globi n A1c), blood HbA1c 5.6 % Not Available [address], [address], 02/27/2025 10:55:06 03/13/2003/13/2025 rapid SARS CoV 2 Ag, QL, [place], upper respi rator y speci men SARS CoV Ag negati ve Not Available [address], [address], 03/13/2025 13:27:31 03/13/20 25 03/13/2025 rapid flu (A+B) Flu A negati ve Not Available [facility] [address] [facility], [place], [address], 03/13/2025 13:27:22 03/13/20 25 03/13/2025 rapid flu (A+B) Flu B negati ve Not Available [facility] [address] [facility], [place], [address], 03/13/2025 13:27:22 02/28/20 25 09/17/2024 CT, abdom en + pelvi s, w/o contr ast No observ ation record ed. [email or web address] [facility] (Med Record) [address], [place], [address], 02/27/2025 12:05:03 04/17/20 25 04/13/2025 MRI, brain , w/o contr ast No observ ation record ed. [facility] [address], [place], [address], 04/17/2025 11:56:07 Result Notes None recorded. Problems Name Problem SNOMED Code Status Onset Date Resolution Date Notes Provider Name and Address Organization Details Recorded Time Chronic low back pain 604898210 Active 2024 LOUIE Quevedo [address] [place] [address], [address], [employer] 5 11:25:21 Type 2 diabetes mellitus 37218323 Active 2024 LOUIE Quevedo [address] [place] [address], [address], [employer] 11:25:45 Migraine 03260547 Active 2024 LOUIE Quevedo [address] [place] [address], [address], [employer] 5 11:25:52 Generalized abdominal pain 606102829 Active 2024 LOUIE Quevedo [address] [place] [address], [address], [employer] 11:27:15 Anxiety 81910756 Active 2024 Disha LOUIE Pineda [address] [place] [address], [address], [employer] 11:13:54 Bronchitis 15000227 Active 2024 Disha LOUIE Pineda [address] [place] [address], [address], [employer] 14:06:18 Problem Notes None recorded. Procedures Surgical History Date Name Laterality Status Provider Name and Address Organization Details Recorded Time Cataract Surgery completed [employer] 02/27/2025 10:41:47 Colposcopy completed [employer] [facility] [employer] 02/27/2025 10:41:47 Eye Surgery completed [employer] [facility] [employer] 02/27/2025 10:41:47 Cosmetic Surgery completed [employer] 02/27/2025 10:41:47 repair of aneurysm of aorta completed [employer] 02/27/2025 10:55:36 Imaging Results None recorded. Procedure Notes None recorded. Medical Equipment None Reported. Allergies Allergen ID Allergen Name Allergen Category Reaction Reaction Severity Criticality Documentation Date Start Date Code Code System Note Provider Name and Address Organization Details Recorded Time 90538 Product containin g penicilli n (product) medicatio n rash Not available Not available 02/27/2025 44548 8001 SNOMED [employer] 10:41:46 06312 Substance with sulfonami de structure and antibacte rial mechanism of action (substanc e) medicatio n other Not available Not available 02/27/2025 37519 8003 SNOMED [employer] 10:41:46 04515 latex environme nt,medica tion other Not available Not available 02/27/2025 98251 91 RxNorm Fiordaliza Vice null, [facility] [employer] 5 10:41:46 Medications Name Sig Start Date Stop [...] Last Updated DateTime 172.72 cm 30.6 kg/m2 29336.0 7 g 94 % 94 % 64 /min 98.4 [degF] 100/64 mm[Hg] [employer]min Holman [employer] 13:26:34 Social History Question Answer Notes LastModified by Organizat ion Details LastModified Time Tobacco Smoking Status Former Smoker Fiordaliza nash [employer] 02/27/2025 10:53:37 Do You Have An Advance [...] Do You Have A Medical Power Of Model [employer]? No Information not available 02/27/2025 What Was [...] anxious, or unable to sleep at night)? [id number] Information not available 02/27/2025 Family History Relationship [...] (GERD) Y Stroke Y Thyroid Problems Y Asthma Y Depression Y GI Problems Y High Cholesterol Y Hepatitis Y Headaches Y Hypertension Y Immunizations Vaccine Type Date Status Note Provider Nam e and Address Organization Details Recorded Time Influenza, split virus, trivalent, preservative 1 completed Not Available [facility] 03/13/2025 13:20:42 Influenza, split virus, trivalent, preservative 3 completed Not Available [facility] 03/13/2025 13:20:42 Influenza, split virus, trivalent, preservative 4 completed Not Available [facility] 03/13/2025 13:20:42 Influenza, split virus, trivalent, preservative 5 completed Not Available [facility] 03/13/2025 13:20:42 Influenza, split virus, quadrivalent, preservative 7 completed Not Available [facility] 03/13/2025 13:20:42 Influenza, split virus, quadrivalent, PF 8 completed Not Available [facility] 03/13/2025 13:20:42 Influenza, high-dose, trivalent, PF 0 completed Not Available [facility] 03/13/2025 13:20:42 Influenza, high-dose, trivalent, PF 0 completed Not Available [facility] 03/13/2025 13:20:42 COVID-19, mRNA, LNP-S, PF, 100 mcg/0.5mL dose or 50 mcg/0.25mL dose 1 completed Not Available [facility] 03/13/2025 13:20:42 COVID-19, mRNA, LNP-S, PF, 100 mcg/0.5mL dose or 50 mcg/0.25mL dose 1 completed Not Available [facility] 03/13/2025 13:20:42 Influenza, high-dose, trivalent, PF 4 completed Not Available [facility] 03/13/2025 13:20:42 Past Encounters Encounter ID Performer Location Encounter Start Date Encounter Closed Date Diagnosis/Indication Diagnosis SNOMED-CT Code Diagnosis ICD10 Code Diagnosis IMO Codes Diagnosis Note [id number] LOUIE Quevedo [address] [address] 02/27/2025 10:40:23 02/27/2025 11:25:04 Internal hordeolum of right lower eyelid 5931052510 97165 H00.749 0796503 Chronic low back pain 27 4963143 M54.50 G89.29 0466953248 Type 2 leslie betes mellitus 24439945 E11.9 02052681 Migraine 46046737 G43.90 9 31540 Generalize d abdominal pain 608028690 R10.84 636454 Reschedule EGD and colonoscop y [id number] LOUIE Quevedo [address] [address] 03/13/2025 13:13:39 03/13/2025 13:53:05 Pulmonary congestion 52648757 R09.89 447430 Bronchitis 32835929 J40 04618 Health Concerns Section Related Observation LastModified by Organization Detai ls LastModified Time None Recorded Concern Status LastModified by Organization Details LastModified Time None Recorded Payers Encounter Date Sequence Insurance Name Policy Number Policy Luciano Covered Member ID Luciano Member ID Guarantor Name 03/13/2025 1 [facility] - DUAL ELIGIBLE (MEDICARE REPLACEMENT/AD VANTAGE - HMO) KYDSNEVIN Yu An [id number] Gigi Mansfield 03/13/2025 2 [facility] KYDSNEVIN Matsonny An [id number] Gigi Mansfield Notes Date Note Type Note Provider Name and Address Organization Details Recorded Time 03/13/2025 text/html ROS as noted in the HPI Patient states that Ubrelvy has helped a lot with his headaches.Lidode rm patches have helped with his low back.He was scheduled for MRI last week but got sick. Still has congestion, cough, wheezing, SOA. LOUIE Quevedo [address] [place] [address], [address], [facility] [employer] 03/13/2025 15:52:30
--- OUTSIDE RECORDS SUMMARY | 2025-05-08 07:54 | XMS_ITS | Encounter Summary ---
Author Organization [employer] ([place], [place], [place], [place], [place]) Address [address] [place] [address] Care Team Providers Care Billboard Erector Helper Name Role Phone Unavailable Primary Care Provider Unavailabl e Encounter Details Date Type Department Care Team (Late st Contact Info) Description 10/30/2020 Transcribed Document [facility] Family Medicine [address] [place] [address] ProviderChristina MD [address] [place] [address] Social History Tobacco Use Types [...]
--- OUTSIDE RECORDS SUMMARY | 2025-05-08 07:54 | XMS_ITS | Encounter Summary ---
Author Organization Healthcare Address [address] [place] [address] Care Team Providers Care Power System Engineer Name Role Phone Teo Dominguez MD Primary Care Provider + [phone] See Gann MD Unavailable [phone] Rufina Shrestha DDS Unavailable + Varinder Dey DMD Unavailable [phone] Encounter Details Date Type Department Care Team (Late st Contact Info) Description 02/08/2024 Orders Only External Location [address] [place] [address] Provider, External Social History Tobacco Use Types [...] documented as of this encounter Care Teams Power System Engineer Relationship Specialty Start Date End Date Teo Dominguez MD [address] [place] [address] PCP - General 11/08/20 See Gann MD [address] [place] [address] Surgeon Neurosurgery 01/07/21 Rufina Shrestha DDS [address] [place] [address] Dentist Dentist 08/19/22 Varinder Dey DMD [address] [place] [address] Dentist 08/19/22 documented as of this encounter
--- OUTSIDE RECORDS SUMMARY | 2025-05-08 07:54 | XMS_ITS | Encounter Summary ---
Author Organization [facility] ([place], [place], [place], [place], [place]) Address [address] [place] [address] Care Team Providers Care Wine Blender Name Role Phone Unavailable Primary Care Provider Unavailabl e Encounter Details Date Type Department Care Team (Late st Contact Info) Description 10/30/2020 Transcribed Document [facility] [place] [address] [place] [address] ProviderChristina MD [address] [place] [address] Social History Tobacco Use Types [...] On: 10/30/2020 13:47 EDT by CATE KOHLER Head Miller Primary Insurance Authorization Authorization and Policy Numbers : Insurance 1 Health Plan: [employer] PPO Policy Number: [id number] Authorization Number: Insurance 2 Health Plan: [facility] Policy Number: [id number] Authorization Number: Insurance Primary Name : [employer] PPO Policy Number: [id number] Authorization Status-Primary : Opo status approv Authorized Service Begin Date-Primary : 10/29/2020 EDT Observation Authorization Nbr-Primary : [id number] Authorization Comments-Primary : Submitted for and obtained OBS approval from [facility] OBS auth# [id number] Historical Authorization Comments-Primary : No Authorization Comments Found CATE KOHLER, Head Miller - 10/30/2020 13:47 EDT documented in this encounter Plan of Treatment Not on file documented as of this encounter Visit Diagnoses Not on filedocumented in this encounter
--- OUTSIDE RECORDS SUMMARY | 2025-05-08 07:54 | XMS_ITS | Encounter Summary ---
Author Organization Healthcare Address [address] [place] [address] Care Team Providers Care Pantomimist Name Role Phone Teo Dominguez MD Primary Care Provider + [phone] See Gann MD Unavailable [phone] Rufina Shrestha DDS Unavailable + Varinder Dey DMD Unavailable [phone] Encounter Details Date Type Department Care Team (Late st Contact Info) Description 03/12/2025 Telephone [facility] [address] [place] [address] Suzanna Brooke, RN [facility] Social History Tobacco Use Types Packs/Day [...] Name: Gigi Nolan :1955 Date:03/12/2025 Affiliate site: [facility] Referring Physician: Jessica Romeo Education/ Information provided: n/a This Nurse Liaison left a voicemail message for Gigi Nolan prior to an appointment on 03/19/2025. Provided patient with liaison contact information and encouraged patient to call with any questions, concerns or assistance needs. Will follow up with patient after appointment. Suzanna Brooke, RN [facility] Nurse Liaison [phone] documented in this encounter Plan of Treatment [...] documented as of this encounter Care Teams Pantomimist Relationship Specialty Start Date End Date Teo Dominguez MD [address] [place], [place] [phone] PCP - General 11/08/20 See Gann MD [address] [place] [address] Surgeon Neurosurgery 01/07/21 Rufina Shrestha DDS [address] [place] [address] Dentist Dentist 08/19/22 Varinder Dey DMD [address] [place] [address] Dentist 08/19/22 documented as of this encounter
--- OUTSIDE RECORDS SUMMARY | 2025-05-08 07:54 | XMS_ITS | Encounter Summary ---
Author Organization Healthcare Address [address] [place] [address] Care Team Providers Care Electrical Manufacturing Engineer Name Role Phone Teo Dominguez MD Primary Care Provider + [phone] See Gann MD Unavailable [phone] Rufina Shrestha DDS Unavailable + Varinder Dey DMD Unavailable [phone] Encounter Details Date Type Department Care Team (Late st Contact Info) Description 04/17/2024 Orders Only External Location [address] [place] [address] Mehul Calderon MD [address] [address] Social History Tobacco Use Types [...] documented as of this encounter Care Teams Electrical Manufacturing Engineer Relationship Specialty Start Date End Date Teo Dominguez MD [address] [place] [address] PCP - General 11/08/20 See Gann MD [address] [place] [address] Surgeon Neurosurgery 01/07/21 Rufina Shrestha DDS [address] [place] [address] Dentist Dentist 08/19/22 Varinder Dey DMD [address] [place] [address] Dentist 08/19/22 documented as of this encounter
--- OUTSIDE RECORDS SUMMARY | 2025-05-08 07:54 | XMS_ITS | Encounter Summary ---
Author Organization Healthcare Address [address] [place] [address] Care Team Providers Care Creative Strategist Name Role Phone Teo Dominguez MD Primary Care Provider + [phone] See Gann MD Unavailable [phone] Rufina Shrestha DDS Unavailable + Varinder Dey DMD Unavailable [phone] Encounter Details Date Type Department Care Team [...] documented as of this encounter Care Teams Creative Strategist Relationship Specialty Start Date End Date Teo Dominguez MD [address] [place], [place] [phone] PCP - General 11/08/20 See Gann MD [address] [place] [address] Surgeon Neurosurgery 01/07/21 Rufina Shrestha DDS [address] [place] [address] Dentist Dentist 08/19/22 Varinder Dey DMD [address] [place] [address] Dentist 08/19/22 documented as of this encounter
--- OUTSIDE RECORDS SUMMARY | 2025-05-08 07:54 | XMS_ITS | Encounter Summary ---
Author Organization Healthcare Address [address] [place] [address] Care Team Providers Care Securities Settlement Processor Name Role Phone Teo Dominguez MD Primary Care Provider + [phone] See Gann MD Unavailable [phone] Rufina Shrestha DDS Unavailable + Varinder Dey DMD Unavailable [phone] Encounter Details Date Type Department Care Team (Late st Contact Info) Description 02/08/2024 Orders Only External Location [address] [place] [address] Provider, External Social History Tobacco Use Types [...] documented as of this encounter Care Teams Securities Settlement Processor Relationship Specialty Start Date End Date Teo Dominguez MD [address] [place] [address] PCP - General 11/08/20 See Gann MD [address] [place] [address] Surgeon Neurosurgery 01/07/21 Rufina Shrestha DDS [address] [place] [address] Dentist Dentist 08/19/22 Varindre Dey DMD [address] [place] [address] Dentist 08/19/22 documented as of this encounter
--- OUTSIDE RECORDS SUMMARY | 2025-05-08 07:54 | XMS_ITS | Encounter Summary ---
Author Organization [employer] ([place], [place], [place], [place], [place]) Address [address] [place] [address] Care Team Providers Care Chicken Hanger Name Role Phone Unavailable Primary Care Provider Unavailabl e Encounter Details Date Type Department Care Team (Late st Contact Info) Description 10/31/2020 Transcribed Document [facility] Family [place] [address] ProviderChristina MD [address] [place] [address] Social History Tobacco Use Types [...] with your condition: Managing pain ??? Take xnqm-uaj-digswie and prescription medicines only as told by [...] provider. Document Revised: 01/02/2019 Document Reviewed: 01/02/2019 [employer] Patient Education ? 2020 [employer] documented in this encounter Plan of Treatment Not on file documented as of this encounter Visit Diagnoses Not on filedocumented in this encounter
--- OUTSIDE RECORDS SUMMARY | 2025-05-08 07:54 | XMS_ITS | Referral Summary ---
Author Organization [employer] ([place], [place], [place], [place], [place]) Address [address] [place] [address] Care Team Providers Care Roller Skates Assembler Name Role Phone Unavailable Primary Care [...]
--- OUTSIDE RECORDS SUMMARY | 2025-05-08 07:54 | XMS_ITS | Encounter Summary ---
Author Organization Healthcare Address [address] [place] [address] Care Team Providers Care Display Designer Name Role Phone Teo Dominguez MD Primary Care Provider + [phone] See Gann MD Unavailable [phone] Rufina Shrestha DDS Unavailable + Varinder Dey DMD Unavailable [phone] Encounter Details Date Type Department Care Team (Late st Contact Info) Description 12/12/2024 Community [facility] [address] [place] [address] Veronica Edmond MD [address] [place] [address] Social History Tobacco Use Types [...] documented as of this encounter Care Teams Display Designer Relationship Specialty Start Date End Date Teo Dominguez MD [address] [place], [place] [phone] PCP - General 11/08/20 See Gann MD [address] [place] [address] Surgeon Neurosurgery 01/07/21 Rufina Shrestha DDS [address] [place] [address] Dentist Dentist 08/19/22 Varinder Dey DMD [address] [place] [address] Dentist 08/19/22 documented as of this encounter
--- OUTSIDE RECORDS SUMMARY | 2025-05-08 07:54 | XMS_ITS | Encounter Summary ---
Author Organization Healthcare Address [address] [place] [address] Care Team Providers Care Channel Rougher Name Role Phone Teo Dominguez MD Primary Care Provider [phone] See Gann MD Unavailable [phone] Rufina Shrestha DDS Unavailable + Varinder Dey DMD Unavailable [phone] Reason for Referral * Consultation (Routine) - Closed Specialty Diagnoses / Procedures Referred By Contac t Referred To Contact Neurosurgery Diagnoses Abnormal MRI, spine Mehul Winston, BICYCLE II ASSEMBLER [address] [place] [address] Phone: tel: fax: Referral ID Status Reason Start Date Expiration Date V isits Requested Visits Authorized [id number] Closed Specialty Services Required 12/05/2020 06/03/2021 1 1 Encounter Details Date Type Department Care Team (Late st Contact Info) Description 12/05/2020 Community [facility] Community [facility] [address] [place] [address] Mehul Winston, BICYCLE II ASSEMBLER [address] [place] [address] Abnormal MRI, spine (Primary Dx) [...] Primary documented in this encounter Care Teams Channel Rougher Relationship Specialty Start Date End Date Teo Dominguez MD [address] [place] [address] [phone] PCP - General 11/08/20 See Gann MD [address] [place] [address] Surgeon Neurosurgery 01/07/21 Rufina Shrestha DDS [address] [place] [address] Dentist Dentist 08/19/22 Varinder Dey DMD [address] [place] [address] Dentist 08/19/22 documented as of this encounter
--- OUTSIDE RECORDS SUMMARY | 2025-05-08 07:54 | XMS_ITS | Encounter Summary ---
Author Organization [employer] ([place], [place], [place], [place], [place]) Address [address] [place] [address] Care Team Providers Care [place] Name Role Phone Unavailable Primary Care Provider Unavailabl e Encounter Details Date Type Department Care Team (Late st Contact Info) Description 10/31/2020 Transcribed Document [facility] Family Medicine [facility] [place] [address] ProviderChristina MD [address] [place], [place] [phone] Social History Tobacco Use Types Packs/Day Years [...] Health Plan: [employer] P[employer] Policy Number: [id number] Authorization Number: Insurance 2 Health Plan: [facility] Policy Number: [id number] Authorization Number: Insurance Primary Name : [employer] P[employer] Policy Number: [id number] Authorization Status-Primary : Opo status approv Authorized Service Begin Date-Primary : 10/29/2020 EDT Observation Authorization Nbr-Primary : [id number] Historical Authorization Comments-Primary : Comment 1: Submitted for and obtained OBS approval from [facility] OBS auth# [id number] (CATE KOHLER, Bulldogger 10/30/2020 13:47) Nasima Salgado Rn-Utilization Review - 10/31/2020 9:22 EDT Electronically signed by [facility], [facility] Conversion Senior Adults Director Cerner at 10/14/2022 11:25 AM CDT documented in this encounter Plan of Treatment Not on file documented as of this encounter Visit Diagnoses Not on filedocumented in this encounter
--- OUTSIDE RECORDS SUMMARY | 2025-05-08 07:54 | XMS_ITS | Data Portability ---
Author Organization [facility] Address [address] [place] [address] Assessment No assessment recorded. Plan of Treatment Reminders Order Date Submit Date Provider Last Modified By Organization Details Last Modified Time Details Appointments FOLLOW UP 15 2024 01:30P Saumya Pineda PA-C Not available Not available Not available Lab rapid flu (A+B) [address], [address] [place], [address], 03/13/2025 14:07:21 rapid SARS CoV 2 Ag, QL, IA, upper respirato ry specimen [address], [address] [place], [address], 03/13/2025 14:07:21 HbA1c (hemoglob in A1c), blood [address], [address] [place], [address], 02/27/2025 11:26:22 microalbu min/creat inine, mass ratio, urine [address], [address] [place], [address], 02/27/2025 11:26:22 Referral None recorded. Procedures None recorded. Surgeries None recorded. Imaging MRI, brain, w/o contrast 2024 025 [email or web address] [facility] [address] [facility] [address], [place], [address], 03/22/2025 15:12:30 Medication Orders azithromy sheng 250 mg tablet 2024 025 [facility], [address], [address], 03/13/2025 14:11:13 prednison e 20 mg tablet 2024 025 [facility], [address] [place] [address], [address], 03/25/2025 05:02:38 Lidoderm 5 % topical patch 2024 025 [facility], [address] [place] [address], [address], 02/27/2025 11:33:59 Ubrelvy 100 mg tablet 2024 025 [facility], [address] [place] [address], [address], 02/27/2025 11:33:59 ofloxacin 0.3 % eye drops 2024 025 [facility], [address] [place] [address], [address], 02/27/2025 11:33:59 Patient TargetsNo targets recorded. Patient Instructions Encounter Date Encounter Id Patient Instructions Last Modified By Organization Details Last Modified Time 02/27/2025 [id number] abdominal pain: care instructions [email or web address] Not available 02/27/2025 11:27:30 learning about type 2 diabetes [email or web address] Not available 02/27/2025 11:26:22 type 2 diabetes: care instructions [email or web address] Not available 02/27/2025 11:26:22 03/13/2025 [id number] bronchitis: care instructions [email or web address] Not available 03/13/2025 14:07:04 Reason for Referral None Reported. Results Created Date Observation Date Name Description Value Unit Range Abnormal Flag Note LastModifiedBy Organization Detail LastModifiedTime 02/28/20 25 02/27/2025 micro album in/cr eatin ine, mass ratio , urine Microalbumin 10 mg/L Not Available [address], [address], 02/27/2025 11:01:14 02/28/20 25 02/27/2025 micro album in/cr eatin ine, mass ratio , urine Creatinine 200 mg/dL Not Available [address], [address], 02/27/2025 11:01:14 02/28/20 25 02/27/2025 micro album in/cr eatin ine, mass ratio , urine Ratio <30 mg/g Not Available [address], [address], 02/27/2025 11:01:14 02/28/20 25 02/27/2025 HbA1c (hemo globi n A1c), blood HbA1c 5.6 % Not Available [address], [address], 02/27/2025 10:55:06 03/13/20 25 03/13/2025 rapid SARS CoV 2 Ag, QL, IA, upper respi rator y speci men SARS CoV Ag negati ve Not Available [address], [address], 03/13/2025 13:27:31 03/13/20 25 03/13/2025 rapid flu (A+B) Flu A negati ve Not Available [address] [place], [address], 03/13/2025 13:27:22 03/13/20 25 03/13/2025 rapid flu (A+B) Flu B negati ve Not Available [facility] [address] [facility], [place], [address], 03/13/2025 13:27:22 02/28/20 25 09/17/2024 CT, abdom en + pelvi s, w/o contr ast No observ ation record ed. [email or web address] [facility] (Med Record) [address], [place], [address], 02/27/2025 12:05:03 04/17/20 25 04/13/2025 MRI, brain , w/o contr ast No observ ation record ed. [facility] [address], [place], [address], 04/17/2025 11:56:07 Result Notes None recorded. Problems Name Problem SNOMED Code Status Onset Date Resolution Date Notes Provider Name and Address Organization Details Recorded Time Chronic low back pain 043874126 Active 2024 LOUIE Quevedo [address] [place] [address], [address], [employer] 5 11:25:21 Type 2 diabetes mellitus 13744927 Active 2024 LOUIE Quevedo [address] [place] [address], [address], [employer] 5 11:25:45 Migraine 60159562 Active 2024 LOUIE Quevedo [address] [place] [address], [address], [employer] 5 11:25:52 Generalized abdominal pain 409700832 Active 2024 LOUIE Quevedo [address] [place] [address], [address], [employer] 11:27:15 Anxiety 95232288 Active 2024 LOUIE Quevedo [address] [place] [address], [address], [employer] 11:13:54 Bronchitis 82680495 Active 2024 Disha LOUIE Pineda [address] [place] [address], [address], [employer] 14:06:18 Problem Notes None recorded. Procedures Surgical History Date Name Laterality Status Provider Name and Address Organization Details Recorded Time Cataract Surgery completed [employer] 02/27/2025 10:41:47 Colposcopy completed [facility] [employer]. 02/27/2025 10:41:47 Eye Surgery completed [facility] [employer] 02/27/2025 10:41:47 Cosmetic Surgery completed [employer]. 02/27/2025 10:41:47 repair of aneurysm of aorta completed [employer]. 02/27/2025 10:55:36 Imaging Results None recorded. Procedure Notes None recorded. Medical Equipment None Reported. Allergies Allergen ID Allergen Name Allergen Category Reaction Reaction Severity Criticality Documentation Date Start Date Code Code System Note Provider Name and Address Organization Details Recorded Time 71374 Product containin g penicilli n (product) medicatio n rash Not available Not available 02/27/2025 38918 8001 SNOMED [employer], [employer] 5 10:41:46 71533 Substance with sulfonami de structure and antibacte rial mechanism of action (substanc e) medicatio n other Not available Not available 02/27/2025 33505 8003 SNOMED [employer], [employer] 5 10:41:46 36912 latex environme nt,medica tion other Not available Not available 02/27/2025 57565 91 RxNorm [employer], [employer] 5 10:41:46 Medications Name Sig Start Date [...] Address Organization Details Last Updated DateTime 5 29979.0 1 g 30.1 kg/m2 172.72 cm 95 % 95 % 60 /min 98.2 [degF] 126/80 mm[Hg] [employer] 10:56:30 Date Recorded Body height Body mass index (BMI) Body weight Oxygen saturation Oxygen saturation in Arterial blood by Pulse oximetry Heart rate Body temperature Systolic And Diastolic Provider Name and Address Organization Details Last Updated DateTime 5 172.72 cm 30.6 kg/m2 63204.0 7 g 94 % 94 % 64 /min 98.4 [degF] 100/64 mm[Hg] [employer] 13:26:34 Social History Question Answer Notes LastModified by Organizat ion Details LastModified Time Tobacco Smoking Status Former Smoker [employer] 02/27/2025 10:53:37 Do You Have An Advance [...] Do You Have A Medical Power Of Bowling Ball Marker? No Information not available 02/27/2025 What Was [...] anxious, or unable to sleep at night)? [id number] Information not available 02/27/2025 Family History Relationship [...] Y Arthritis Y Acid Reflux (GERD) Y Thyroid Problems Y Stroke Y Asthma Y Depression Y GI Problems Y High Cholesterol Y Hepatitis Y Headaches Y Hypertension Y Immunizations Vaccine Type Date Status Note Provider Nam e and Address Organization Details Recorded Time Influenza, split virus, trivalent, preservative 1 completed Not Available [facility] 03/13/2025 13:20:42 Influenza, split virus, trivalent, preservative 3 completed [facility] 03/13/2025 13:20:42 Influenza, split virus, trivalent, preservative 4 completed Not Available [facility] 03/13/2025 13:20:42 Influenza, split virus, trivalent, preservative 5 completed Not Available [facility] 03/13/2025 13:20:42 Influenza, split virus, quadrivalent, preservative 7 completed Not Available [facility] 03/13/2025 13:20:42 Influenza, split virus, quadrivalent, PF 8 completed [facility] 03/13/2025 13:20:42 Influenza, high-dose, trivalent, PF 0 completed [facility] 03/13/2025 13:20:42 Influenza, high-dose, trivalent, PF 0 completed [facility] 03/13/2025 13:20:42 COVID-19, mRNA, LNP-S, PF, 100 mcg/0.5mL dose or 50 mcg/0.25mL dose 1 completed Not Available [facility] 03/13/2025 13:20:42 COVID-19, mRNA, LNP-S, PF, 100 mcg/0.5mL dose or 50 mcg/0.25mL dose 1 completed Not Available [facility] 03/13/2025 13:20:42 Influenza, high-dose, trivalent, PF 4 completed Not Available [facility] 03/13/2025 13:20:42 Past Encounters Encounter ID Performer Location Encounter Start Date Encounter Closed Date Diagnosis/Indication Diagnosis SNOMED-CT Code Diagnosis ICD10 Code Diagnosis IMO Codes Diagnosis Note [id number] LOUIE Quevedo [address] [address] 02/27/2025 10:40:23 02/27/2025 11:25:04 Internal hordeolum of right lower eyelid 5199723198 48300 H00.500 2997581 Chronic low back pain 27 9708156 M54.50 G89.29 8479493817 Type 2 leslie betes mellitus 33670706 E11.9 43639346 Migraine 87586408 G43.90 9 11935 Generalize d abdominal pain 969567780 R10.84 155966 Reschedule EGD and colonoscop y [id number] LOUIE Quevedo [address] [address] 03/13/2025 13:13:39 03/13/2025 13:53:05 Pulmonary congestion 10712982 R09.89 648006 Bronchitis 27323429 J40 17755 Health Concerns Section Related Observation LastModified by Organization Detai ls LastModified Time None Recorded Concern Status LastModified by Organization Details LastModified Time None Recorded Advance Directives Directive N: Payers Insurance Date Sequence Insurance Name Policy Number Policy Luciano Covered Member ID Luciano Member ID Guarantor Name 03/07/2025 2 [facility] (MEDICARE REPLACEMENT/AD VANTAGE - HMO) HEMALATHA Nolan [id number] Gigi Nolan 03/07/2025 [place] [facility] HEMALATHA Matsonny An [id number] Gigi [place] 05/01/2025 1 [facility] (MEDICARE REPLACEMENT/AD VANTAGE - HMO) RIZWANNP Gigi [place] [id number] Gigi [place] 04/20/2025 2 [facility] (MEDICAID HMO) Gigi [place]derpool [id number] Gigi [place] 05/04/2025 2 [facility] - [place] RIZWANNP Gigi [place] [id number] Gigi [place] Notes Date Note Type Note [...] suture a few days ago. LOUIE Quevedo [address] [place], [address], [employer] 03/02/2025 15:26:09 03/13/2025 text/html ROS as noted in the HPI Patient states that Ubrelvy has helped a lot with his headaches.Lidoderm patches have helped with his low back.He was scheduled for MRI last week but got sick. Still has congestion, cough, wheezing, SOA. LOUIE Quevedo [address] [place], [address], [employer] 03/13/2025 15:52:30
--- OUTSIDE RECORDS SUMMARY | 2025-05-08 07:54 | XMS_ITS | Encounter Summary ---
Author Organization Healthcare Address [address] [place] [address] Care Team Providers Care Commercial Litigation Paralegal Name Role Phone Teo Dominguez MD Primary Care Provider + [phone] See Gann MD Unavailable [phone] Rufina Shrestha DDS Unavailable + Varinder Dey DMD Unavailable [phone] Encounter Details Date Type Department Care Team (Late st Contact Info) Description 09/17/2024 Orders Only External Location [address] [place] [address] Provider, External Social History Tobacco Use Types [...] documented as of this encounter Care Teams Commercial Litigation Paralegal Relationship Specialty Start Date End Date Teo Dominguez MD [address] [place] [address] [phone] PCP - General 11/08/20 See Gann MD [address] [place] [address] Surgeon Neurosurgery 01/07/21 Rufina Shrestha DDS [address] [place] [address] Dentist Dentist 08/19/22 Varinder Dey DMD [address] [place] [address] Dentist 08/19/22 documented as of this encounter
--- OUTSIDE RECORDS SUMMARY | 2025-05-08 07:54 | XMS_ITS | Encounter Summary ---
Author Organization [employer] ([place], [place], [place], [place], [place]) Address [address] [place] [address] Care Team Providers Care Clinical Appeals Rn Name Role Phone Unavailable Primary Care Provider Unavailabl e Encounter Details Date Type Department Care Team (Late st Contact Info) Description 10/30/[address] [facility] Family Medicine [address] [place] [address] ProviderChristina MD [address] [place] [address] Social History Tobacco Use Types [...] EDT Treatment Time : 15 Minute(s) BALWINDER KWOK PT - 10/30/2020 16:28 EDT History and [...] to Chair : Rehab Minimal assistance (Comment: ENGINEER FIRST ASSISTANT with gait belt [BALWINDER KWOK, PT - [...] BALWINDER KWOK, PT - 10/30/2020 16:28 EDT Drilling And Production Superintendent Goals Mobility/Bed Mobility LTG PT Grid Goal [...] - 10/30/2020 16:28 EDT Electronically signed by [facility], [facility] Conversion Professional Athletes Coach Cerner at 10/14/2022 11:44 AM CDT documented in this encounter Plan of Treatment Not on file documented as of this encounter Visit Diagnoses Not on filedocumented in this encounter
--- OUTSIDE RECORDS SUMMARY | 2025-05-08 07:54 | XMS_ITS | Encounter Summary ---
Author Organization Healthcare Address [address] [place] [address] Care Team Providers Care System Development Engineer Name Role Phone Teo Dominguez MD Primary Care Provider + [phone] See Gann MD Unavailable [phone] Rufina Shrestha DDS Unavailable + Varinder Dey DMD Unavailable [phone] Encounter Details Date Type Department Care Team (Late st Contact Info) Description 09/17/2024 Orders Only External Location [address] [place] [address] Provider, External Social History Tobacco Use Types [...] documented as of this encounter Care Teams System Development Engineer Relationship Specialty Start Date End Date Teo Dominguez MD [address] [place] [address] [id number] PCP - General 11/08/20 See Gann MD [address] [place] [address] Surgeon Neurosurgery 01/07/21 Rufina Shrestha DDS [address] [place] [address] Dentist Dentist 08/19/22 Varinder Dey DMD [address] [place] [address] Dentist 08/19/22 documented as of this encounter
--- OUTSIDE RECORDS SUMMARY | 2025-05-08 07:54 | XMS_ITS | Encounter Summary ---
Author Organization [employer] ([place], [place], [place], [place], [place]) Address [address] [place] [address] Care Team Providers Care Recruiting And Selection Consultant Name Role Phone Unavailable Primary Care Provider Unavailabl e Encounter Details Date Type Department Care Team (Late st Contact Info) Description 10/29/[address] [facility] Family Medicine [address] [place] [address] ProviderChristina MD [address] [place] [address] Social History Tobacco Use Types [...]
--- OUTSIDE RECORDS SUMMARY | 2025-05-08 07:54 | XMS_ITS | Encounter Summary ---
Author Organization [employer] ([place], [place], [place], [place], [place]) Address [address] [place] [address] Care Team Providers Care Licensed Tax Consultant Name Role Phone Unavailable Primary Care Provider Unavailabl e Encounter Details Date Type Department Care Team (Late st Contact Info) Description 10/31/2020 Transcribed Document [place] [facility] [place] [address] ProviderChristina MD [address] [place] [address] Social History Tobacco Use Types [...] On: 10/31/2020 13:45 EDT by PRIETO MILLS RN-Laser Cutter Final Discharge Planning Discharge Arrangements : Patient [...] : Yes Discharge To Care Management : Home/Residential/Skilled Nursing or Self Care -01 PRIETO MILLS RN-Laser Cutter - 10/31/2020 13:45 EDT Final Narrative Note Final Narrative Note : Discharged to home, agreeable. No needs verbalized at this time. PRIETO MILLS RN-Laser Cutter - 10/31/2020 13:45 EDT Electronically signed by Donald [facility] Conversion Nursing Home Social Worker Cerner at 10/14/2022 11:26 AM CDT documented in this encounter Plan of Treatment Not on file documented as of this encounter Visit Diagnoses Not on filedocumented in this encounter
--- OUTSIDE RECORDS SUMMARY | 2025-05-08 07:54 | XMS_ITS | Encounter Summary ---
Author Organization [employer] ([place], [place], [place], [place], [place]) Address [address] [place] [address] Care Team Providers Care Concentrator Operator Name Role Phone Unavailable Primary Care Provider Unavailabl e Encounter Details Date Type Department Care Team (Late st Contact Info) Description 10/30/2020 Transcribed Document [facility] [place] [facility] [place] [address] ProviderChristina MD [address] [place] [address] Social History Tobacco Use Types Packs/Day Years Used Date Smoking Tobacco: Never Assessed Sex and Gender Information Value Date Recorded Sex Assigned at Not on file Legal Sex Male 1:42 PM CDT Gender Identity Not on file Sexual Orientation Not on file documented as of this encounter Miscellaneous Notes * Cerner Conversion Note - Christina ProviderMD - 10/30/2020 1:06 PM CDT DATE OF [...] hospital yesterday from the emergency room at [facility] for headaches and syncope, and I [...] the left. He decided to come to [facility] Emergency Room, where he was given [...] hydrocodone. SOCIAL HISTORY: The patient lives in [place] by himself, he . 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 He uses a [...] tongue, however, protrudes midline. Coordination shows intact ytvgrk-he-ajil and osng-do-ctgr bilaterally. Gait was not tested. DIAGNOSTIC STUDIES: IMAGING STUDIES: He had a CTA of the head and neck at [facility] yesterday. The CTA of the head showed no large vessel occlusion. 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 The patient had a CTA of the neck that was normal. The patient had a CT scan of his head at [facility] that suggested calcification of the right [...] of the head and neck done at [facility]. I have asked the staff to [...] artery appeared diffusely small throughout its course. /[id number] MD MAR Kulkarni/AQ / MAR / MODL /[id number] documented in this encounter Plan of Treatment Not on file documented as of this encounter Visit Diagnoses Not on filedocumented in this encounter
--- OUTSIDE RECORDS SUMMARY | 2025-05-08 07:54 | XMS_ITS | Encounter Summary ---
Author Organization Healthcare Address [address] [place] [address] Care Team Providers Care Hr Receptionist Name Role Phone Teo Dominguez MD Primary Care Provider + [phone] See Gann MD Unavailable [phone] Rufina Shrestha DDS Unavailable + Varinder Dey DMD Unavailable [phone] Encounter Details Date Type Department Care Team (Late st Contact Info) Description 02/08/2024 Orders Only External Location [address] [place] [address] Provider, External Social History Tobacco Use Types [...] documented as of this encounter Care Teams Hr Receptionist Relationship Specialty Start Date End Date Teo Dominguez MD [address] [place] [address] PCP - General 11/08/20 See Gann MD [address] [place] [address] Surgeon Neurosurgery 01/07/21 Rufina Shrestha DDS [address] [place] [address] Dentist Dentist 08/19/22 Varinder Dey DMD [address] [place] [address] Dentist 08/19/22 documented as of this encounter
--- OUTSIDE RECORDS SUMMARY | 2025-05-08 07:54 | XMS_ITS | Encounter Summary ---
Author Organization [employer] ([place], [place], [place], [place], [place]) Address [address] [place] [address] Care Team Providers Care Heavy Equipment Operator Apprentice Name Role Phone Unavailable Primary Care Provider Unavailabl e Encounter Details Date Type Department Care Team (Late st Contact Info) Description 10/30/2020 Transcribed Document [facility] [place] [address] [place] [address] ProviderChristina MD [address] [place] [address] Social History Tobacco Use Types Packs/Day Years Used Date Smoking Tobacco: Never Assessed Sex and Gender Information Value Date Recorded Sex Assigned at Not on file Legal Sex Male 1:42 PM CDT Gender Identity Not on file Sexual Orientation Not on file documented as of this encounter Miscellaneous Notes * Cerner Conversion Note - Christina ProviderMD - 10/30/2020 4:42 PM CDT DATE OF [...] a seizure disorder. Clinical correlation is advised. /[id number] Zack Henderson MD WSB/AQ / WSB / MODL /[id number] documented in this encounter Plan of Treatment Not on file documented as of this encounter Visit Diagnoses Not on filedocumented in this encounter
--- OUTSIDE RECORDS SUMMARY | 2025-05-08 07:54 | XMS_ITS | Encounter Summary ---
Author Organization [employer] ([place], [place], [place], [place], [place]) Address [address] [place] [address] Care Team Providers Care Tire And Lube Technician Name Role Phone Unavailable Primary Care Provider Unavailabl e Encounter Details Date Type Department Care Team (Late st Contact Info) Description 10/29/2020 Transcribed Document [facility] [place] [facility] [place] [address] ProviderChristina MD [address] [place], [place] [id number] Social History Tobacco Use Types Packs/Day Years Used Date Smoking Tobacco: Never Assessed Sex and Gender Information Value Date Recorded Sex Assigned at Not on file Legal Sex Male 1:42 PM CDT Gender Identity Not on file Sexual Orientation Not on file documented as of this encounter Miscellaneous Notes * Cerner Conversion Note - Historical ProviderMD - 10/29/2020 9:55 PM CDT Admission [...] #2 Relationship : n Primary Language : Polish Communication Barrier : None Interventional Pain Physician Needed : No GO CALL RN - [...] Level : 46 or > High Risk [place] Fall Interventions : Adequate lighting, Assistive devices [...] Source : Stated Height Entry Format : [place] Height, Feet : 5 ft(Converted to: 152 cm, 60 Inch) Height, Inches : 8 Inch(Converted to: 0 ft 8 Inch, 20.32 cm) Clinical Height : 172.72 cm Weight Source : Standing scale Weight Entry Format : [place] Clinical Dosing Weight : 95.45 kg Weight, Pounds : 210 lb Body Surface Area (BSA) : 2.09 m2 Body Mass Index : 32 kg/m2 (HI) [place] Body Weight : 67 kg GO CALL [...] GO CALL RN - 10/29/2020 22:27 EDT [place] Suicide Severity Rating Scale (C-SSRS) CSSRS Past [...]
--- OUTSIDE RECORDS SUMMARY | 2025-05-08 07:54 | XMS_ITS | Data Portability ---
Author Organization [facility] Address [facility] [place] [address] Assessment No assessment recorded. Plan of Treatment Reminders Order Date Submit Date Provider Last Modified By Organization Details Last Modified Time Details Appointments None recorded. Lab PSA, serum or plasma [address], [address], 05:44:11 urinalysis , dipstick [address], [address], 13:35:05 Referral None recorded. Procedures bladder scan (PROC) [address], [address], 13:35:05 Surgeries None recorded. Imaging None recorded. Medication Orders alfuzosin ER 10 mg tablet,ext ended release 24 hr 2022 023 [facility], [address], [address], 12:50:17 Patient TargetsNo targets recorded. Patient InstructionsNo instructions recorded. Reason for Referral None Reported. Results Created Date Observation Date Name Description Value Unit Range Abnormal Flag Note LastModifiedBy Organization Detail LastModifiedTime 04/21/2004/21/2023 PROST ATE SPECI FIC AG (PSA) prostate specific Ag (PSA) 2.40 NG/mL 0.0-4. 0 Not Available [facility] (Lab Registration) [address] , [place], [address], 04/21/2023 16:54:55 04/21/2004/21/2023 PROST ATE SPECI FIC AG (PSA) note Unles s other kenny noted testi ng perfo rmed at: [facility] [address] [place] [address] [phone] Zachery tijerina MD CLIA: [id number] Not Available [facility] (Lab Registration) [address] , [place], [address], 04/21/2023 16:54:55 04/21/2004/21/2023 urina lysis , dipst ick Leukocytes (reference range) negati ve Not Available [facility] [address], [address], 04/21/2023 12:02:01 04/21/2004/21/2023 urina lysis , dipst ick Nitrite (reference range:) negati ve Not Available [address], [address], 04/21/2023 12:02:01 04/21/2004/21/2023 urina lysis , dipst ick Urobilinogen (reference range) 0.2 Not Available [address], [address], 04/21/2023 12:02:01 04/21/2004/21/2023 urina lysis , dipst ick Protein (reference range) negati ve Not Available [address], [address], 04/21/2023 12:02:01 04/21/2004/21/2023 urina lysis , dipst ick pH (reference range 5-8.5) 7.0 Not Available [address], [address], 04/21/2023 12:02:01 04/21/2004/21/2023 urina lysis , dipst ick Blood (reference range:) negati ve Not Available [address], [address], 04/21/2023 12:02:01 04/21/2004/21/2023 urina lysis , dipst ick Specific [place] (reference range) 1.020 Not Available [address], [address], 04/21/2023 12:02:01 04/21/2004/21/2023 urina lysis , dipst ick Ketone (reference range) negati ve Not Available [address], [address], 04/21/2023 12:02:01 04/21/2004/21/2023 urina lysis , dipst ick Bilirubin (reference range) negati ve Not Available [address], [address], 04/21/2023 12:02:01 04/21/2004/21/2023 urina lysis , dipst ick Glucose (reference range) negati ve Not Available [address], [address], 04/21/2023 12:02:01 04/21/2004/21/2023 bladd er scan (PROC ) Calculated Residual Urine: 24 ml Not Available [address], [address], 04/21/2023 12:02:23 Result Notes None recorded. Problems Name Problem SNOMED Code Status Onset Date Resolution Date Notes Provider Name and Address Organization Details Recorded Time Myocardial infarction 55025531 Active 2022 Princess nash, PACO [facility] - [place] & [place] 3 09:52:17 Hypertensive disorder 28049147 Active 2022 Princess nash, PACO Amaral [facility] - [facility] & [place] 3 09:52:22 Cerebrovascula r accident 484415995 Active 2022 Princess nash, PACO [facility] - [facility] & [place] 3 09:52:27 Diabetes mellitus 38652956 Active 2022 Princess nash, PACO [facility] - [facility] & [place] 3 09:52:34 Acute hepatitis 01690981 Active 2022 Princess nash, PACO [facility] - [facility] & [place] 3 09:52:47 Gastroesophage al reflux disease 193158042 Active 2022 Princess nash, PACO - [facility] - [facility] & [place] 3 09:52:53 Arthritis 2596969 Active 2022 Princess nash, PACO [facility] - [facility] & [place] 3 09:52:59 Problem Notes None recorded. 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 Procedure [...] Updated DateTime 04/21/2023 172.72 cm 30.7 kg/m2 91338.66 g 97.9 [degF] Chintanasa Macario [facility] [place] [facility] & [place] 04/21/2023 09:51:06 Social History None recorded. Functional Status Question Answer Note LastModified by Organization D etails LastModified Time What is your level of alcohol consumption? None [email or web address] Information not available 04/21/2023 Mental Status None recorded. Family History Relationship Description Onset Age of this Age Resolved Age Notes LastModified by Organization Details LastModified Time Mother Malignant neoplastic disease dec [email or web address] Not available 2022 09:58:44 Father Myocardial infarction dec [email or web address] Not available 04/21 09:59:00 Medical History No medical history recorded. Past Encounters Encounter ID Performer Location Encounter Start Date Encounter Closed Date Diagnosis/Indication Diagnosis SNOMED-CT Code Diagnosis ICD10 Code Diagnosis IMO Codes Diagnosis Note [id number] Zack Duval Jr, MD [facility] [address] [address] 04/21/2023 09:33:27 04/21/2023 11:15:56 Benign prostatic hyperplasia with outflow obstruction 736768021 N40.1 Patient with history of lower urinary [...] well. Screening for malignant neoplasm of prostate 276172568 Z12.5 prostate exam today he is benign. [...] Guarantor Name 05/07/2024 3 [employer] Gigi Crowderpool [id number] Gigi Crowderpool Sr 05/07/2024 1 [employer] (MEDICARE REPLACEMENT/ ADVANTAGE - PPO) Gigi Crowderpool [id number] Gigi Crowderpool Sr 05/07/2024 2 [employer] [facility] (MEDICAID HMO) Gigi Crowderpool [id number] Gigi Crowderpool Sr Notes Date Note Type Note Provider Name and Address Organization Details Recorded Time 04/21/2023 text/html Patient is a 67-year-old white male with a history lower urinary tract symptoms. I saw the patient previously at [facility]. He has been about a year [...] residual 24 cc. Zack Duval Jr, MD [address] [place] [address], [address], [place], [address], [facility] - [facility] - [place] & [place] 04/21/2023 12:51:33
--- OUTSIDE RECORDS SUMMARY | 2025-05-08 07:54 | XMS_ITS | Encounter Summary ---
Author Organization [employer] ([place], [place], [place], [place], [place]) Address [address] [place] [address] Care Team Providers Care Electromatic Typist Name Role Phone Unavailable Primary Care Provider Unavailabl e Encounter Details Date Type Department Care Team (Late st Contact Info) Description 10/31/2020 Transcribed Document [facility] [place] [address] [place] [address] ProviderChristina MD [address] [place] [address] Social History Tobacco Use Types Packs/Day Years Used Date Smoking Tobacco: Never Assessed Sex and Gender Information Value Date Recorded Sex Assigned at Not on file Legal Sex Male 1:42 PM CDT Gender Identity Not on file Sexual Orientation Not on file documented as of this encounter Miscellaneous Notes * Cerner Conversion Note - Historical ProviderMD - 10/31/2020 11:35 AM CDT Stroke/Warfarin [...]
--- OUTSIDE RECORDS SUMMARY | 2025-05-08 07:54 | XMS_ITS | Encounter Summary ---
Author Organization [employer] ([place], [place], [place], [place], [place]) Address [address] [place] [address] Care Team Providers Care Belt Builder Name Role Phone Unavailable Primary Care Provider Unavailabl e Encounter Details Date Type Department Care Team (Late st Contact Info) Description 10/31/2020 Transcribed Document [facility] [place] [facility] [place] [address] ProviderChristina MD [address] [place] [id number] Social History Tobacco Use Types Packs/Day Years [...] 10/31/2020 13:14 EDT Electronically signed by Donald [facility] Conversion Staffing Clerk Cerner at 10/14/2022 11:30 AM CDT documented in this encounter Plan of Treatment Not on file documented as of this encounter Visit Diagnoses Not on filedocumented in this encounter
--- OUTSIDE RECORDS SUMMARY | 2025-05-08 07:54 | XMS_ITS | Encounter Summary ---
Author Organization [employer] ([place], [place], [place], [place], [place]) Address [address] [place] [address] Care Team Providers Care Skills Auditor Name Role Phone Unavailable Primary Care Provider Unavailabl e Encounter Details Date Type Department Care Team (Late st Contact Info) Description 10/31/2020 Transcribed Document [facility] [place] [address] [place] [address] ProviderChristina MD [address] [place] [address] Social History Tobacco Use Types Packs/Day Years Used Date Smoking Tobacco: Never Assessed Sex and Gender Information Value Date Recorded Sex Assigned at Not on file Legal Sex Male 1:42 PM CDT Gender Identity Not on file Sexual Orientation Not on file documented as of this encounter Miscellaneous Notes * Cerner Conversion Note - Christina ProviderMD - 10/31/2020 1:15 PM CDT [facility] [place], [place] [id number] SHANNAN SAMANIEGO SR :1955 Visit Time:10/29/2020 Your [...] call for a follow up appointment with [facility]. Where: [address] [facility] [address] [place] [address]- Business (1) Medications What How Much When Instructions Next Dose acetaminophen/ butalbital/ caffeine (Fioricet oral capsule) 1 Capsule(s) Oral Every 6 Hours as needed for Headache Duration: 3 Day(s) Printed Prescription atorvastatin (atorvastatin 40 mg oral tablet) 1 Tablet(s) Oral Every Day Duration: 90 Day(s) Pickup at [facility] sucralfate (Carafate 1 g/ 10 mL oral suspension) 10 Milliliter(s) Oral Before Meals Pickup at [facility] LORazepam (LORazepam 0.5 mg oral tablet) [...] Hours as needed for Nausea Pharmacy Information [facility]: [address] [place], [place] [id number] [phone] Take your medications faithfully. Do NOT skip [...] with your condition: Managing pain ??? Take haoe-iap-kosdeyt and prescription medicines only as told by [...] provider. Document Revised: 01/02/2019 Document Reviewed: 01/02/2019 [employer] Patient Education ?? 2020 [employer]. acetaminophen, butalbital, and caffeine (a SEET a MIN oh fen, justina SAMSON heaven samson, and URI eekalyani) Capacet, Esgic, Fioricet, Margesic, Medigesic, Orbivan, Repan, [...] Acetaminophen is a pain reliever and fever momd teacher. Butalbital is in a group of drugs [...] may report side effects to FDA at 6-797-SGQ-7304. What other drugs will affect acetaminophen, butalbital, [...] acetaminophen, butalbital, and caffeine, including prescription and vvfu-qzj-kyhmdhq medicines, vitamins, and herbal products. Tell each [...] to ensure that the information provided by [employer]. ('Multum') is accurate, up-to-date, and complete, but no guarantee is made to that effect. Drug information contained herein may be time sensitive. [employer] information has been compiled for use by healthcare practitioners and consumers in the [place] and therefore [employer] does not warrant that uses outside of the [place] are appropriate, unless specifically indicated otherwise. [employer] drug information does not endorse drugs, diagnose patients or recommend therapy. [employer] drug information is an informational resource designed [...] effective or appropriate for any given patient. [employer] does not assume any responsibility for any aspect of healthcare administered with the aid of information [employer] provides. The information contained herein is not intended to cover all possible uses, directions, precautions, warnings, drug interactions, allergic reactions, or adverse effects. If you have questions about the drugs you are taking, check with your doctor, nurse or pharmacist. Copyright 0075-5037 [employer]. Version: 6.02. Revision Date: 07/22/2015. sucralfate (oral) (willy HKANH fate) Carafate What is the most important [...] may report side effects to FDA at 5-213-GOG-7009. What other drugs will affect sucralfate? Other drugs may affect sucralfate, including prescription and lygm-lrr-blaqisi medicines, vitamins, and herbal products. Tell your [...] to ensure that the information provided by [employer]. ('Loc[employer]um') is accurate, up-to-date, and complete, but no guarantee is made to that effect. Drug information contained herein may be time sensitive. [employer] information has been compiled for use by healthcare practitioners and consumers in the [place] and therefore [employer] does not warrant that uses outside of the [place] are appropriate, unless specifically indicated otherwise. [employer] drug information does not endorse drugs, diagnose patients or recommend therapy. [employer] drug information is an informational resource designed [...] effective or appropriate for any given patient. [employer] does not assume any responsibility for any aspect of healthcare administered with the aid of information [employer] provides. The information contained herein is not intended to cover all possible uses, directions, precautions, warnings, drug interactions, allergic reactions, or adverse effects. If you have questions about the drugs you are taking, check with your doctor, nurse or pharmacist. Copyright 0020-5393 [employer]. Version: 03.28. Revision Date: 08/29/2020. atorvastatin (a [...] may report side effects to FDA at 1-939-JJX-4375. What other drugs will affect atorvastatin? Certain [...] may affect atorvastatin. This includes prescription and jpbk-fku-vphwkaf medicines, vitamins, and herbal products. Not all [...] to ensure that the information provided by [employer]. ('Migo.meum') is accurate, up-to-date, and complete, but no guarantee is made to that effect. Drug information contained herein may be time sensitive. [employer] information has been compiled for use by healthcare practitioners and consumers in the [place] and therefore [employer] does not warrant that uses outside of the [place] are appropriate, unless specifically indicated otherwise. [employer]'s drug information does not endorse drugs, diagnose patients or recommend therapy. [employer] drug information is an informational resource designed [...] effective or appropriate for any given patient. [facility] does not assume any responsibility for any aspect of healthcare administered with the aid of information [employer] provides. The information contained herein is not intended to cover all possible uses, directions, precautions, warnings, drug interactions, allergic reactions, or adverse effects. If you have questions about the drugs you are taking, check with your doctor, nurse or pharmacist. Copyright 6610-5433 [employer]. Version: 22.02. Revision Date: 08/06/2020. Emergency Awareness [...] Assistance with quitting is available by contacting 3-074-YJWG-NOW. This is a free resource providing counseling, [...] range between ( 0.0 and 7.0 ) [place] #: 0.41 K/uL -- Normal range between ( 0.16 and 1.00 ) Eos #: 0.10 x10(3)/uL -- Normal range between ( 0.00 and 0.80 ) [place] %: 7.5 % -- Normal range between [...] Echo Complete: EC Echo Complete Patient Name:ADEN FLOWERS SHANNAN I have received and understand this information and was given the opportunity to ask questions. Patient/Marketing Officer Name: Patient/Marketing Officer Signature: Relationship to Patient: Clinician/Hospital Marketing Officer Signature: Date: documented in this encounter Plan of Treatment Not on file documented as of this encounter Visit Diagnoses Not on filedocumented in this encounter
--- OUTSIDE RECORDS SUMMARY | 2025-05-08 07:54 | XMS_ITS | Encounter Summary ---
Author Organization [employer] ([place], [place], [place], [place], [place]) Address [address] [place] [address] Care Team Providers Care Sporting Goods Salesperson Name Role Phone Unavailable Primary Care Provider Unavailabl e Encounter Details Date Type Department Care Team (Late st Contact Info) Description 10/30/2020 Transcribed Document [facility] [place] [address] [place] [address] ProviderChristina MD [address], [place] [id number] Social History Tobacco Use Types Packs/Day Years [...]
--- OUTSIDE RECORDS SUMMARY | 2025-05-08 07:54 | XMS_ITS | Encounter Summary ---
Author Organization [employer] ([place], [place], [place], [place], [place]) Address [address] [place] [address] Care Team Providers Care Mechanical Designer Name Role Phone Unavailable Primary Care Provider Unavailabl e Encounter Details Date Type Department Care Team (Late st Contact Info) Description 10/29/[address] [facility] [place] [facility] [place] [address] ProviderChristina MD [address] [place] [id number] Social History Tobacco Use Types Packs/Day Years Used Date Smoking Tobacco: Never Assessed Sex and Gender Information Value Date Recorded Sex Assigned at Not on file Legal Sex Male 1:42 PM CDT Gender Identity Not on file Sexual Orientation Not on file documented as of this encounter Miscellaneous Notes * Cerner Conversion Note - Historical ProviderMD - 10/29/2020 10:38 PM CDT Patient: [...] diff colitis in july who presented to [facility] on 10/29 for evaluation of headache [...] fluids and toradol and transferred to [facility] for further evaluation. Health Status Allergies: [...] At risk for sleep apnea / IMO [id number] / Confirmed, Active Problems (1) At risk [...] facial droop. eomi, tongue protrudes midline. hand news assistant and arm pull 5/5. hard of hearing. [...] record reviewed, no family present Code status: bath steward/stewardess spent: 45 min [facility] Physical Examination VS/Measurements No qualifying data available Review / Management Results review: No qualifying data available. documented in this encounter Plan of Treatment Not on file documented as of this encounter Visit Diagnoses Not on filedocumented in this encounter
--- OUTSIDE RECORDS SUMMARY | 2025-05-08 07:54 | XMS_ITS | Encounter Summary ---
Author Organization [employer] ([place], [place], [place], [place], [place]) Address [address] [place] [address] Care Team Providers Care Hands Parter Name Role Phone Unavailable Primary Care Provider Unavailabl e Encounter Details Date Type Department Care Team (Late st Contact Info) Description 10/30/2020 Transcribed Document [facility] [place] [facility] [place] [address] ProviderChristina MD [address] [place] [address] Social History Tobacco Use Types [...] On: 10/30/2020 15:14 EDT by KATHY STODDARD OTR/L General Information, OT Visit Type, OT : [...] None evident Rehabilitation Potential, OT : Good KTAHY STODDARD OTR/Gm - 10/30/2020 15:14 EDT Plan of Care, OT OT Tx Plan/Goals Established w Patient : Yes OT Frequency Rehab : Five days per week OT Duration Rehab : Fourteen days OT Treatments Planned : Activities of daily living, Functional mobility training, Safety education, Therapeutic activities KATHY STODDARD OTR/Gm - 10/30/2020 15:14 EDT Head Of Ict Goals, OT Grooming LTG Grid Goal #1 [...]
--- OUTSIDE RECORDS SUMMARY | 2025-05-08 07:54 | XMS_ITS | Encounter Summary ---
Author Organization [employer] ([place], [place], [place], [place], [place]) Address [address] [place] [address] Care Team Providers Care Personal Development Coach Name Role Phone Unavailable Primary Care Provider Unavailabl e Encounter Details Date Type Department Care Team (Late st Contact Info) Description 10/30/2020 Transcribed Document [facility] [place] Family Medicine [address] [place] [address] ProviderChristina MD [address] [place] [address] Social History Tobacco Use Types [...] Health Plan: [employer] PPO Policy Number: [id number] Authorization Number: Insurance 2 Health Plan: [employer] [facility] Policy Number: [id number] Authorization Number: Historical Authorization Comments-Primary : No Authorization Comments Found Nasima Salgado Rn-Utilization Review - 10/30/2020 13:21 EDT Electronically signed by Asad Bennett Conversion Director Of Financial Planning Cerner at 10/14/2022 11:24 AM CDT documented in this encounter Plan of Treatment Not on file documented as of this encounter Visit Diagnoses Not on filedocumented in this encounter
--- OUTSIDE RECORDS SUMMARY | 2025-05-08 07:54 | XMS_ITS | Clinical Summary ---
Author Organization [id number] ([place], [place], [place], [place], [place]) Address [address] [place] [address] Care Team Providers Care Piercing Specialist Name Role Phone Unavailable Primary Care [...]
--- OUTSIDE RECORDS SUMMARY | 2025-05-08 07:55 | XMS_ITS | Encounter Summary ---
Author Organization [employer] ([place], [place], [place], [place]) Address [address] [place] [address] Care Team Providers Care Paper Machine Supervisor Name Role Phone Unavailable Primary Care Provider Unavailabl e Encounter Details Date Type Department Care Team (Late st Contact Info) Description 10/30/2020 Transcribed Document [facility] [place] Family Medicine [address] [place] [address] ProviderChristina MD [address] [place] [address] Social History Tobacco Use Types [...] On: 10/30/2020 11:07 EDT by PRIETO MILLS RN-Dairy Processing Supervisor Initial Assessment I Previously Documented Living Environment [...] Is Guardianship Needed : No PRIETO MILLS RN-Dairy Processing Supervisor - 10/30/2020 11:07 EDT Initial Assessment II Sensory and Motor Deficits : None Current Home Treatments and Equipment : None PRIETO MILLS RN-Dairy Processing Supervisor - 10/30/2020 11:07 EDT Discharge Needs I Anticipated Discharge Date : 10/31/2020 EDT Anticipated Discharge To, CM : Home with family care Current Home Treatment/Equipment : Current Home Treatment/Equipment No qualifying data available. Post Acute/Home Treatments : None Documentation Status Complete : Yes PRIETO MILLS RN-Dairy Processing Supervisor - 10/30/2020 11:07 EDT Discharge Needs II Professional Skilled Services : Professional Skilled Services No qualifying data available. Needs Assistance with Transportation : No PRIETO MILLS RN-Dairy Processing Supervisor - 10/30/2020 11:07 EDT Narrative Note Narrative Note : Received from outside facility to here due to headache, placed in observation. Neurology has been consulted. Met with Pt at the bedside. Role of CM explained. Pt states that he is ADL independent, lives home alone, but has his [place] yeager (like my service dog). Plans are to return home when discharged. Pt states that he has bulging discs and wonders if these are causing his issues. No needs anticipated/verbalized at this time. RRS is low @ 31, boost 5. CM will follow. PRIETO MILLS RN-Dairy Processing Supervisor - 10/30/2020 11:07 EDT documented in this encounter Plan of Treatment Not on file documented as of this encounter Visit Diagnoses Not on filedocumented in this encounter
--- OUTSIDE RECORDS SUMMARY | 2025-05-08 07:55 | XMS_ITS | Encounter Summary ---
Author Organization [employer] ([place], [place], [place], [place], [place]) Address [address] [place] [address] Care Team Providers Care Senior Editor Name Role Phone Unavailable Primary Care Provider Unavailabl e Encounter Details Date Type Department Care Team (Late st Contact Info) Description 10/30/2020 Transcribed Document [facility] [place] [address] [place] [address] ProviderChristina MD [address] [place] [address] Social History Tobacco Use Types [...]
--- OUTSIDE RECORDS SUMMARY | 2025-05-08 07:55 | XMS_ITS | Encounter Summary ---
Author Organization [employer] ([place], [place], [place], [place], [place]) Address [address] [place] [address] Care Team Providers Care Coordinate Measuring Machine Technician Name Role Phone Unavailable Primary Care Provider Unavailabl e Encounter Details Date Type Department Care Team (Late st Contact Info) Description 10/31/2020 Transcribed Document [facility] [place] Family Medicine [facility] [place] [address] ProviderChristina MD [address], [place] [id number] Social History Tobacco Use Types Packs/Day Years [...] PHYSICAL THERAPIST NON-EXEMPT - 10/31/2020 16:28 EDT Jail Goals Mobility/Bed Mobility LTG [...]
[2025-05-08 08:12] LABS: Blood Urea Nitrogen 12 mg/dl (9-20); Creatinine,Serum 1.00 mg/dl (0.66-1.25); Estimated Glomerular Filt Rate 74 ml/min (>60); GFR (African American) 89 ML/MIN (>60)
[2025-05-08] MEDS: GADOTERIDOL INJ 20ML SYRINGE 18 ML IV (09:06)
[2025-05-08] MEDS: SODIUM CHLORIDE 0.9% 10ML SYR (RAD ONLY) 10 ML IV (09:06)
== END 2025-05-08 23:59 ==
LOC: RAD 07:51
PROVIDERS: PCP Physician Assistant; Visit Provider Physician Assistant
DX: R06.02 Shortness of breath (principal); R07.9 Chest pain, unspecified; R53.83 Other fatigue; E11.69 Type 2 diabetes mellitus with other specified complication; E03.9 Hypothyroidism, unspecified; E78.5 Hyperlipidemia, unspecified; I25.118 Atherosclerotic heart disease of native coronary artery with other forms of angina pectoris; I10 Essential (primary) hypertension
CPT/HCPCS: 36415; 70553; 82565; 84520; A9576

== ENCOUNTER 2025-06-26 04:44 | Observation (INO) | payer MEDICARE, OTHER, SELFPAY ==
--- OUTSIDE RECORDS SUMMARY | 2025-06-07 08:30 | XMS_ITS | Encounter Summary ---
Author Organization Healthcare Address [address] [place] [address] Care Team Providers Care Director Of Brand Marketing Name Role Phone Teo Dominguez MD Primary Care Provider + [phone] See Gann MD Unavailable [phone] Rufina Shrestha DDS Unavailable + Varinder Dey Unavailable Encounter Details Date Type Department Care Team (Late st Contact Info) Description 06/07/2025 8:30 AM EST Office Visit [place] [facility] [address] [place] [address] Shayne Hsu MD [address] [place] [address] CPA (cerebellopontine angle) tumor (CMS/HCC) (Primary Dx) Social History Tobacco Use Types Packs/Day Years Used Date Smoking Tobacco: Former Cigarettes 3 22 1 985 - 2007 Smokeless Tobacco: Never Alcohol Use Standard Drinks/Week [...] Sign Reading Time Taken Comments Blood Pressure 152/92 06/07/2025 8:08 AM EST Pulse - - Temperature - - Respiratory Rate - - Oxygen Saturation - - Inhaled Oxygen Concentration - - Weight 93.1 kg (205 lb 4 oz) 06/07/2025 8:08 AM EST Height 172.7 cm (5' 8 ) 06/07/2025 8:08 AM EST Body Mass Index 31.21 06/07/2025 8:08 AM EST documented in this encounter Functional Status * BP Answer Date of Assessment Author 152/92 06/07/2025 8:08 AM Amaury Langford * Height Answer Date of Assessment Author 68 06/07/2025 8:08 AM Amaury Langford * Weight Answer Date of Assessment Author 3283.97 06/07/2025 8:08 AM Amaury Langford * BMI (Calculated) Answer Date of Assessment Author 31.3 06/07/2025 8:08 AM Amaury Langford * Percent Excess Weight Loss Answer Date of Assessment Author 0 06/07/2025 8:08 AM Amaury Langford * Total Weight Change Percent Answer Date of Assessment Author 2222 06/07/2025 8:08 AM Amaury Langford * Weight Change Since Preop Answer Date of Assessment Author 93.08 06/07/2025 8:08 AM Amaury Langford * Initial Excess Weight Answer Date of Assessment Author -69.85 06/07/2025 8:08 AM Amaury Langford * IBW in lbs (Bariatric) Answer Date of Assessment Author 154 06/07/2025 8:08 AM Amaury Langford * Weight Change Since Last Visit Answer Date of Assessment Author 93.08 06/07/2025 8:08 AM Amaury Langford * IBW in kg (Bariatric) Answer Date of Assessment Author 69.85 06/07/2025 8:08 AM Amaury Langford * Percent of IBW Answer Date of Assessment Author 4,701.46 06/07/2025 8:08 AM Amaury Langford * EBW (kg) Answer Date of Assessment Author 3,281.99 06/07/2025 8:08 AM Amaury Langford * EBW (lbs) Answer Date of Assessment Author 3,274.35 06/07/2025 8:08 AM Amaury Langford * Weight Change 24 hrs Answer Date of Assessment Author 1.8 06/07/2025 8:08 AM Amaury Langford * Depression Screening Question Answer Date of Assessment Author Will the patient answer the depression risk questions? No 06/07/2025 8:19 AM Amaury aLngford * BSA (Calculated - sq m) Answer Date of Assessment Author 2.11 06/07/2025 8:08 AM Amaury Langford * BMI (Calculated) Answer Date of Assessment Author 31.22 06/07/2025 8:08 AM Amaury Langford * IBW/kg (Calculated) Male Answer Date of Assessment Author 68.4 06/07/2025 8:08 AM Amaury Langford * IBW/kg (Calculated) Female Answer Date of Assessment Author 63.9 06/07/2025 8:08 AM Amaury Langford * IBW/kg (Calculated) Answer Date of Assessment Author 68.4 06/07/2025 8:08 AM Amaury Langford * Weight in (lb) to have BMI = 25 Answer Date of Assessment Author 164.1 06/07/2025 8:08 AM Amaury Langford * BMI (Calculated) Answer Date of Assessment Author 31.3 06/07/2025 8:08 AM Amaury Langford * Percent Excess Weight Loss Answer Date of Assessment Author 0 06/07/2025 8:08 AM Amaury Langford * Weight Change Since Preop Answer Date of Assessment Author 93.1 06/07/2025 8:08 AM Amaury Langford * Initial Excess Weight Answer Date of Assessment Author -69.85 06/07/2025 8:08 AM Amaury Langford * IBW in kg (Bariatric) Answer Date of Assessment Author 69.85 06/07/2025 8:08 AM Amaury Langford * IBW in lb (Bariatric) Answer Date of Assessment Author 154 06/07/2025 8:08 AM Amaury Langford * Weight Change Since Last Visit Answer Date of Assessment Author 93.1 06/07/2025 8:08 AM Amaury Langford * Percent of IBW Answer Date of Assessment Author 133.28 06/07/2025 8:08 AM Amaury Langford * EBW (kg) Answer Date of Assessment Author 23.23 06/07/2025 8:08 AM Amaury Langford * EBW (lb) Answer Date of Assessment Author 51.25 06/07/2025 8:08 AM Amaury Langford * Difference in Weight Since Last Visit Answer Date of Assessment Author 1.8 06/07/2025 8:08 AM Amaury Langofrd * IBW/kg (Calculated) Answer Date of Assessment Author 68.4 06/07/2025 8:08 AM Amaury Langford * Adult Low Range Vt 6mL/kg Answer Date of Assessment Author 410.4 06/07/2025 8:08 AM Amaury Langford * Adult Moderate Range Vt 8mL/kg Answer Date of Assessment Author 547.2 06/07/2025 8:08 AM Amaury Langford * Adult High Range Vt 10mL/kg Answer Date of Assessment Author 684 06/07/2025 8:08 AM Amaury Langford * Pain Score Answer Date of Assessment Author 10 06/07/2025 8:17 AM Amaury Langford * Pain Screening/Additional Assessments Question Answer Date of Assessment Author Pain Screening/Assessments Pain Screening 06/07/2025 8 :17 AM Amaury Langford * Pain Screening Answer Date of Assessment Author 0-10 06/07/2025 8:17 AM Amaury Langford * BP Answer Date of Assessment Author 152/92 06/07/2025 8:08 AM Amaury Langford * Height Answer Date of Assessment Author 68 06/07/2025 8:08 AM Amaury Langford * Weight Answer Date of Assessment Author 3283.97 06/07/2025 8:08 AM Amaury Langford * BSA (Calculated - sq m) Answer Date of Assessment Author 2.11 06/07/2025 8:08 AM Amaury Langford * BMI (Calculated) Answer Date of Assessment Author 31.22 06/07/2025 8:08 AM Amaury Langford * Weight in (lb) to have BMI = 25 Answer Date of Assessment Author 164.1 06/07/2025 8:08 AM Amaury Langford * Pain Score Answer Date of Assessment Author 10 06/07/2025 8:17 AM Amaury Langford documented as of this encounter Mental Status * BP Answer Entry Date Author 152/92 06/07/2025 8:08 AM Amaury Langford * Height Answer Entry Date Author 68 06/07/2025 8:08 AM Amaury Langford * Weight Answer Entry Date Author 3283.97 06/07/2025 8:08 AM Amaury Langford * BMI (Calculated) Answer Entry Date Author 31.3 06/07/2025 8:08 AM Amaury Langford * Percent Excess Weight Loss Answer Entry Date Author 0 06/07/2025 8:08 AM Amaury Langford * Total Weight Change Percent Answer Entry Date Author 2222 06/07/2025 8:08 AM Amaury Langford * Weight Change Since Preop Answer Entry Date Author 93.08 06/07/2025 8:08 AM Amaury Langford * Initial Excess Weight Answer Entry Date Author -69.85 06/07/2025 8:08 AM Amaury Langford * IBW in lbs (Bariatric) Answer Entry Date Author 154 06/07/2025 8:08 AM Amaury Langford * Weight Change Since Last Visit Answer Entry Date Author 93.08 06/07/2025 8:08 AM Amaury Langford * IBW in kg (Bariatric) Answer Entry Date Author 69.85 06/07/2025 8:08 AM Amaury Langford * Percent of IBW Answer Entry Date Author 4,701.46 06/07/2025 8:08 AM Amaury Langford * EBW (kg) Answer Entry Date Author 3,281.99 06/07/2025 8:08 AM Amaury Langford * EBW (lbs) Answer Entry Date Author 3,274.35 06/07/2025 8:08 AM Amaury Langford * Weight Change 24 hrs Answer Entry Date Author 1.8 06/07/2025 8:08 AM Amaury Langford * Depression Screening Question Answer Entry Date Author Will the patient answer the depression risk questions? No 06/07/2025 8:19 AM Amaury Langford * BSA (Calculated - sq m) Answer Entry Date Author 2.11 06/07/2025 8:08 AM Amaury Langford * BMI (Calculated) Answer Entry Date Author 31.22 06/07/2025 8:08 AM Amaury Langford * IBW/kg (Calculated) Male Answer Entry Date Author 68.4 06/07/2025 8:08 AM Amaury Langford * IBW/kg (Calculated) Female Answer Entry Date Author 63.9 06/07/2025 8:08 AM Amaury Langford * IBW/kg (Calculated) Answer Entry Date Author 68.4 06/07/2025 8:08 AM Amaury Langford * Restart Pain Assessment Timer Answer Entry Date Author Yes 06/07/2025 8:17 AM Amaury Langford * Weight in (lb) to have BMI = 25 Answer Entry Date Author 164.1 06/07/2025 8:08 AM Amaury Langford * BMI (Calculated) Answer Entry Date Author 31.3 06/07/2025 8:08 AM Amaury Langford * Percent Excess Weight Loss Answer Entry Date Author 0 06/07/2025 8:08 AM Amaury Langford * Weight Change Since Preop Answer Entry Date Author 93.1 06/07/2025 8:08 AM Amaury Langford * Initial Excess Weight Answer Entry Date Author -69.85 06/07/2025 8:08 AM Amaury Langford * IBW in kg (Bariatric) Answer Entry Date Author 69.85 06/07/2025 8:08 AM Amaury Langford * IBW in lb (Bariatric) Answer Entry Date Author 154 06/07/2025 8:08 AM Amaury Langford * Weight Change Since Last Visit Answer Entry Date Author 93.1 06/07/2025 8:08 AM Amaury Langford * Percent of IBW Answer Entry Date Author 133.28 06/07/2025 8:08 AM Amaury Langford * EBW (kg) Answer Entry Date Author 23.23 06/07/2025 8:08 AM Amaury Langford * EBW (lb) Answer Entry Date Author 51.25 06/07/2025 8:08 AM Amaury Langford * Difference in Weight Since Last Visit Answer Entry Date Author 1.8 06/07/2025 8:08 AM Amaury Langford * IBW/kg (Calculated) Answer Entry Date Author 68.4 06/07/2025 8:08 AM Amaury Langford * Adult Low Range Vt 6mL/kg Answer Entry Date Author 410.4 06/07/2025 8:08 AM Amaury Langford * Adult Moderate Range Vt 8mL/kg Answer Entry Date Author 547.2 06/07/2025 8:08 AM Amaury Langford * Adult High Range Vt 10mL/kg Answer Entry Date Author 684 06/07/2025 8:08 AM Amaury Langford * Pain Score Answer Entry Date Author 10 06/07/2025 8:17 AM Amaury Langford * Pain Screening Answer Entry Date Author 0-10 06/07/2025 8:17 AM Amaury Langford documented in this encounter Miscellaneous Notes * Progress Notes - Marcello Ames - 06/07/2025 8:30 AM EST We had the pleasure of seeing your patient in our clinic today for Neurosurgical follow up. Chief Complaint Follow up with MRI History Of Present Illness Gigi Nolan is a 69 y.o. male right acoustic neuroma resected in 1995 presenting for follow-up with recent MRI. Patient was last seen in clinic in 2022 with stable symptoms, he returns today withup to date MRI 04/2025 which he was told showed recurrence /new brain mass. He presents to clinic today for review of MRI. He does report 2-3 months of progressive headaches as well as dizziness Current medications & allergies and past medical, surgical, family, and social history all reviewed. Review of Systems 14 point review of systems was performed and was negative except as noted per HPI. Physical Exam Neuro Exam GCS (EMV): 465 Awake, alert, oriented Follows commands appropriately Right facial droop Right side deafness Visual acuity decreased on right Speech clear PERRL, EOMI COOPER symmetrically, no drift Sensation intact throughout bilateral upper and lower extremities Last Recorded Vitals Visit Vitals Vitals: 06/07/25 0808 BP: (!) 152/92 Imaging I personally reviewed, independently interpreted, and read available radiology reports (as available) for the following studies, and with the following findings: MRI head 04/2025 without evidence of acute process. Stable post surgical changes following R acoustic neuroma resection. Assessment and Plan Gigi Nolan is a 69 y.o. male hx of Acoustic neuroma resection in 1995 presenting for neurosurgical follow up with MRI showing stable post surgical changes from acoustic neuroma resection. We discussed that his headaches and neck pain are not related. We will send him for MRI C spine and have him follow up with spine surgeon, if necessary. He may follow up with our clinic on an as needed basis. The patient is agreeable to plan of care. They had the opportunity to ask questions, all of which were answered to their satisfaction. I reviewed this patient's history, exam, and imaging with Dr. Hsu He guided plan of care for this patient. Marcello Ames MD PGY-2, Department of neurosurgery [facility] Pager: [phone] Cosigned by Shayne Hsu MD at 06/07/2025 12:48 PM EST Associated attestation - Shayne Hsu MD - 06/07/2025 12:48 PM EST I saw and evaluated the patient with the resident/fellow. I discussed the case with the resident/fellow and agree with the findings and plan as documented. 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 documented in this encounter Additional Health Concerns Assessment Noted Time PHQ-9 Depression Total Score: 13 022 12:43 PM EDT A fall risk assessment has been complete d for the patient 06/07/2025 8:19 AM EST A Body Mass Index follow-up plan has been documented for the patient 06/07/2025 12:48 PM EST documented as of this encounter Care Teams Director Of Brand Marketing Relationship Specialty Start Date End Date Teo Dominguez MD [address] [place] [address] PCP - General 11/08/20 See Gann MD [address] [place] [address] Surgeon Neurosurgery 01/07/21 Rufina Shrestha DDS [address] [place] [address] Dentist Dentist 08/19/22 Varinder Dey Dentist 08/19/22 documented as of this encounter
[2025-06-26] VITALS (17 sets, daily range): BP systolic 110–173; BP diastolic 68–91; PULSE 50–68; RESP 10–18; TEMP 36.5–36.8; O2SAT 93–100; BMI 25.0; BMI 29.8
--- NOTE | 2025-06-26 04:45 | ECG_ITS ---
APPROVED REPORT Exam: Resting ECG HR:57 bpm ECG Measurements Heart Rate 57 AXES CO 189 P 71 QRSd 99 QRS -32 QT 445 T 27 QTc 439 Conclusion SINUS BRADYCARDIA LEFT AXIS DEVIATION [QRS AXIS < -30] MINIMAL VOLTAGE CRITERIA FOR LVH, CONSIDER NORMAL VARIANT [MEETS CRITERIA IN ONE OF: R(aVL), S(V1), R(V5), R(V5/V6)+S(V1)] ABNORMAL ECG UNCONFIRMED REPORT Electronically signed by : MAZIN BAJWA, 06/29/2025 04:30:52
--- OUTSIDE RECORDS SUMMARY | 2025-06-26 04:50 | XMS_ITS | Encounter Summary ---
Author Organization Healthcare Address [address] [place] [address] Care Team Providers Care Code Inspector Name Role Phone Teo Dominguez MD Primary Care Provider + [phone] See Gann MD Unavailable [phone] Ruifna Shrestha DDS Unavailable + Varinder Dey Unavailable Encounter Details Date Type Department Care Team (Late st Contact Info) Description 09/17/2024 Orders Only External Location [address] [place] [address] Provider, External Social History Tobacco Use Types [...] documented as of this encounter Care Teams Code Inspector Relationship Specialty Start Date End Date Teo Dominguez MD [address] [place] [address] PCP - General 11/08/20 See Gann MD [address] [place] [address] Surgeon Neurosurgery 01/07/21 Rufina Shrestha DDS [address] [place] [address] Dentist Dentist 08/19/22 Varinder Dey Dentist 08/19/22 documented as of this encounter
--- OUTSIDE RECORDS SUMMARY | 2025-06-26 04:50 | XMS_ITS | Encounter Summary ---
Author Organization Healthcare Address [address] [place] [address] Care Team Providers Care Staff Physical Therapy Assistant Name Role Phone Teo Dominguez MD Primary Care Provider + [phone] See Gann MD Unavailable [phone] Rufina Shrestha DDS Unavailable + Varinder Dey Unavailable Encounter Details Date Type Department Care Team (Late st Contact Info) Description 09/17/2024 Orders Only External Location [address] [place] [address] Provider, External Social History Tobacco Use Types [...] documented as of this encounter Care Teams Staff Physical Therapy Assistant Relationship Specialty Start Date End Date Teo Dominguez MD [address] [place] [address] PCP - General 11/08/20 See Gann MD [address] [place] [address] Surgeon Neurosurgery 01/07/21 Rufina Shrestha DDS [address] [place] [address] Dentist Dentist 08/19/22 Varinder Dey Dentist 08/19/22 documented as of this encounter
--- OUTSIDE RECORDS SUMMARY | 2025-06-26 04:50 | XMS_ITS | Encounter Summary ---
Author Organization Healthcare Address [address] [place] [address] Care Team Providers Care 3D Artist Name Role Phone Teo Dominguez MD Primary Care Provider + [phone] See Gann MD Unavailable [phone] Rufina Shrestha DDS Unavailable + Varinder Dey Unavailable Encounter Details Date Type Department Care Team (Late st Contact Info) Description 09/17/2024 Orders Only External Location [address] [place] [id number] Provider, External Social History Tobacco Use Types [...] Region Laterality Modality Computed Tomogra phy 09/17/2024 us External Provider IMG CT PROCEDURES Edited Resul t - Final documented in this encounter Visit Diagnoses Not [...] documented as of this encounter Care Teams 3D Artist Relationship Specialty Start Date End Date Teo Dominguez MD [address] [place], [place] [phone] PCP - General 11/08/20 See Gann MD [address] [place] [address] Surgeon Neurosurgery 01/07/21 Rufina Shrestha DDS [address] [place] [address] Dentist Dentist 08/19/22 Varinder Dey Dentist 08/19/22 documented as of this encounter
--- OUTSIDE RECORDS SUMMARY | 2025-06-26 04:51 | XMS_ITS | Referral Summary ---
Author Organization [employer] ([place], [place], [place], [place], [place]) Address [address] [place] [address] Care Team Providers Care Showroom Sales Assistant Name Role Phone Unavailable Primary Care [...]
--- OUTSIDE RECORDS SUMMARY | 2025-06-26 04:51 | XMS_ITS | Encounter Summary ---
Author Organization Healthcare Address [address] [id number] Care Team Providers Care Scenario Writer Name Role Phone Teo Dominguez MD Primary Care Provider + [phone] See Gann MD Unavailable [phone] Rfuina Shrestha DDS Unavailable + Varinder Dey Unavailable Encounter Details Date Type Department Care Team (Late st Contact Info) Description 12/13/2024 Orders Only External Location [address] [place] [phone] Provider, External Social History Tobacco Use Types [...] Procedure Name Priority Date/Time Associated Diagnosis Comments XR OUTSIDE IMAGES 12/13/2024 documented in this encounter Results * XR OUTSIDE IMAGES (12/13/2024) Anatomical Region Laterality Modality Radiographic Courtney ging 12/13/2024 us External Provider IMG XR PROCEDURES Final Result documented in this encounter [...] documented as of this encounter Care Teams Scenario Writer Relationship Specialty Start Date End Date Teo Dominguez MD [address] [place], [place] [phone] PCP - General 11/08/20 See Gann MD [address] [place] [address] Surgeon Neurosurgery 01/07/21 Rufina Shrestha DDS [address] [place] [address] Dentist Dentist 08/19/22 Varinder Dey Dentist 08/19/22 documented as of this encounter
--- OUTSIDE RECORDS SUMMARY | 2025-06-26 04:51 | XMS_ITS | Encounter Summary ---
Author Organization [employer] ([place], [place], [place], [place]) Address [address] [place] [address] Care Team Providers Care Hris Developer Name Role Phone Unavailable Primary Care Provider Unavailabl e Encounter Details Date Type Department Care Team (Late st Contact Info) Description 10/30/2020 Transcribed Document [facility] [place] [address] [place] [address] ProviderChristina MD [address] [place] [address] Social History Tobacco Use Types [...] a seizure disorder. Clinical correlation is advised. /[id number] Zack Henderson MD WSB/AQ / WSB / MODL /[id number] documented in this encounter Plan of Treatment Not on file documented as of this encounter Visit Diagnoses Not on filedocumented in this encounter
--- OUTSIDE RECORDS SUMMARY | 2025-06-26 04:51 | XMS_ITS | Encounter Summary ---
Author Organization [employer] ([place], [place], [place], [place], [place]) Address [address] [place] [address] Care Team Providers Care Pack Worker Name Role Phone Unavailable Primary Care Provider Unavailabl e Encounter Details Date Type Department Care Team (Late st Contact Info) Description 10/29/2020 Transcribed Document [facility] [address] [place] [address] ProviderChristina MD [address] [place] [address] Social History Tobacco Use Types [...]
--- OUTSIDE RECORDS SUMMARY | 2025-06-26 04:51 | XMS_ITS | Encounter Summary ---
Author Organization Healthcare Address [address] [id number] Care Team Providers Care Pipe Tester Name Role Phone Teo Dominguez MD Primary Care Provider + [phone] See Gann MD Unavailable [phone] Rufina Shrestha DDS Unavailable + Varinder Dey Unavailable Encounter Details Date Type Department Care Team (Late st Contact Info) Description 02/08/2024 Orders Only External Location [address] [place] [address] Provider, External Social History Tobacco Use Types [...] documented as of this encounter Care Teams Pipe Tester Relationship Specialty Start Date End Date Teo Dominguez MD [address] [place], [place] [phone] PCP - General 11/08/20 See Gann MD [address] [place] [address] Surgeon Neurosurgery 01/07/21 Rufina Shrestha DDS [address] [place] [address] Dentist Dentist 08/19/22 Varinder Dey Dentist 08/19/22 documented as of this encounter
--- OUTSIDE RECORDS SUMMARY | 2025-06-26 04:51 | XMS_ITS | Encounter Summary ---
Author Organization [employer] ([place], [place], [place], [place], [place]) Address [address] [place] [address] Care Team Providers Care Smoking Pipe Coater Name Role Phone Unavailable Primary Care Provider Unavailabl e Encounter Details Date Type Department Care Team (Late st Contact Info) Description 10/30/2020 Transcribed Document [facility] [place] [facility] [place] [address] ProviderChristina MD [address] [place] [address] Social History Tobacco Use Types [...] KATHY STODDARD OTR/Gm - 10/30/2020 15:14 EDT Resident Buyer Goals, OT Grooming LTG Grid Goal #1 [...]
--- OUTSIDE RECORDS SUMMARY | 2025-06-26 04:51 | XMS_ITS | Encounter Summary ---
Author Organization Healthcare Address [address] [id number] Care Team Providers Care Profile Saw Operator Name Role Phone Teo Dominguez MD Primary Care Provider + [phone] See Gann MD Unavailable [phone] Rufina Shrestha DDS Unavailable + Varinder Dey Unavailable Encounter Details Date Type Department Care Team (Late st Contact Info) Description 02/08/2024 Orders Only External Location [address] [place] [address] Provider, External Social History Tobacco Use Types [...] documented as of this encounter Care Teams Profile Saw Operator Relationship Specialty Start Date End Date Teo Dominguez MD [address] [place], [place] [phone] PCP - General 11/08/20 See Gann MD [address] [place] [address] Surgeon Neurosurgery 01/07/21 Rufina Shrestha DDS [address] [place] [address] Dentist Dentist 08/19/22 Varinder Dey Dentist 08/19/22 documented as of this encounter
--- OUTSIDE RECORDS SUMMARY | 2025-06-26 04:51 | XMS_ITS | Encounter Summary ---
Author Organization Healthcare Address [address] [id number] Care Team Providers Care Pump Rebuilder Name Role Phone Teo Dominguez MD Primary Care Provider + [phone] See Gann MD Unavailable [phone] Rufina Shrestha DDS Unavailable + Varinder Dey Unavailable Encounter Details Date Type Department Care Team (Late st Contact Info) Description 04/17/2024 Orders Only External Location [address] [place] [phone] Provider, External Social History Tobacco Use Types [...] documented as of this encounter Care Teams Pump Rebuilder Relationship Specialty Start Date End Date Teo Dominguez MD [address] [place], [place] [phone] PCP - General 11/08/20 See Gann MD [address] [place] [address] Surgeon Neurosurgery 01/07/21 Rufina Shrestha DDS [address] [place] [address] Dentist Dentist 08/19/22 Varinder Dey Dentist 08/19/22 documented as of this encounter
--- OUTSIDE RECORDS SUMMARY | 2025-06-26 04:51 | XMS_ITS | Encounter Summary ---
Author Organization [employer] ([place], [place], [place], [place], [place]) Address [address] [place] [address] Care Team Providers Care Aviation Safety Inspector Name Role Phone Unavailable Primary Care Provider Unavailabl e Encounter Details Date Type Department Care Team (Late st Contact Info) Description 10/29/2020 Transcribed Document [facility] Family Medicine [facility] [place] [address] ProviderChristina MD [address] [place], [place] [id number] Social History Tobacco Use Types Packs/Day Years Used Date Smoking Tobacco: Never Assessed Sex and Gender Information Value Date Recorded Sex Assigned at Not on file Legal Sex Male 1:42 PM CDT Gender Identity Not on file Sexual Orientation Not on file documented as of this encounter Miscellaneous Notes * Cerner Conversion Note - Historical ProviderMD - 10/29/2020 10:38 PM CDT Patient: GGII SAMANIEGO SR Age: 65 years Sex: Male [...] diff colitis in july who presented to [facility] on 10/29 for evaluation of headache [...] iv fluids and toradol and transferred to [facility] for further evaluation. Health Status Allergies: Allergic [...] At risk for sleep apnea / IMO [id number] / Confirmed, Active Problems (1) At risk [...] facial droop. eomi, tongue protrudes midline. hand telephone triage nurse and arm pull 5/5. hard of hearing. [...] record reviewed, no family present Code status: labor supervisor spent: 45 min [facility] Physical Examination VS/Measurements No qualifying data available Review / Management Results review: No qualifying data available. documented in this encounter Plan of Treatment Not on file documented as of this encounter Visit Diagnoses Not on filedocumented in this encounter
--- OUTSIDE RECORDS SUMMARY | 2025-06-26 04:51 | XMS_ITS | Encounter Summary ---
Author Organization [employer] ([place], [place], [place], [place], [place]) Address [address] [place] [address] Care Team Providers Care Rod Placer Name Role Phone Unavailable Primary Care Provider Unavailabl e Encounter Details Date Type Department Care Team (Late st Contact Info) Description 10/29/2020 Transcribed Document [facility] [place] [facility] [place] [address] ProviderChristina MD [address] [place], [place] [id number] Social History Tobacco Use Types Packs/Day Years [...] #2 Relationship : n Primary Language : Uzbek Communication Barrier : None Advisory Intern Needed : No GO CALL RN - [...] Level : 46 or > High Risk [place] Fall Interventions : Adequate lighting, Assistive devices [...] Source : Stated Height Entry Format : [place] Height, Feet : 5 ft(Converted to: 152 cm, 60 Inch) Height, Inches : 8 Inch(Converted to: 0 ft 8 Inch, 20.32 cm) Clinical Height : 172.72 cm Weight Source : Standing scale Weight Entry Format : [place]ney Clinical Dosing Weight : 95.45 kg Weight, Pounds : 210 lb Body Surface Area (BSA) : 2.09 m2 Body Mass Index : 32 kg/m2 (HI) [place] Body Weight : 67 kg GO CALL [...] GO CALL RN - 10/29/2020 22:27 EDT [place] Suicide Severity Rating Scale (C-SSRS) CSSRS Past [...]
--- OUTSIDE RECORDS SUMMARY | 2025-06-26 04:51 | XMS_ITS | Encounter Summary ---
Author Organization [employer] ([place], [place], [place], [place], [place]) Address [address] [place] [address] Care Team Providers Care Resp Therapist Name Role Phone Unavailable Primary Care Provider Unavailabl e Encounter Details Date Type Department Care Team (Late st Contact Info) Description 10/31/2020 Transcribed Document [facility] [place] [facility] [place] [address] ProviderChristina MD [address] [place], [place] [phone] Social History Tobacco Use Types Packs/Day Years [...] 10/31/2020 13:14 EDT Electronically signed by [facility] Conversion Real Estate Assessor Cerner at 10/14/2022 11:30 AM CDT documented in this encounter Plan of Treatment Not on file documented as of this encounter Visit Diagnoses Not on filedocumented in this encounter
--- OUTSIDE RECORDS SUMMARY | 2025-06-26 04:51 | XMS_ITS | Encounter Summary ---
Author Organization [employer] ([place], [place], [place], [place], [place]) Address [address] [place] [address] Care Team Providers Care Pourer Metal Name Role Phone Unavailable Primary Care Provider Unavailabl e Encounter Details Date Type Department Care Team (Late st Contact Info) Description 10/30/2020 Transcribed Document [facility] [place] [address] [place] [address] ProviderChristina MD [address] [place] [address] Social History Tobacco Use Types [...] On: 10/30/2020 13:47 EDT by CATE KOHLER Gis Engineer Primary Insurance Authorization Authorization and Policy Numbers : Insurance 1 Health Plan: [employer] Policy Number: [id number] Authorization Number: Insurance 2 [facility] Policy Number: [id number] Authorization Number: Insurance Primary Name : [employer] PPO Policy Number: [id number] Authorization Status-Primary : Opo status approv Authorized Service Begin Date-Primary : 10/29/2020 EDT Observation Authorization Nbr-Primary : [id number] Authorization Comments-Primary : Submitted for and obtained OBS approval from [facility] OBS auth# [id number] Historical Authorization Comments-Primary : No Authorization Comments Found CTAE KOHLER, Gis Engineer - 10/30/2020 13:47 EDT documented in this encounter Plan of Treatment Not on file documented as of this encounter Visit Diagnoses Not on filedocumented in this encounter
--- OUTSIDE RECORDS SUMMARY | 2025-06-26 04:51 | XMS_ITS | Encounter Summary ---
Author Organization [employer] ([place], [place], [place], [place], [place]) Address [address] [place] [address] Care Team Providers Care Gas Tender Name Role Phone Unavailable Primary Care Provider Unavailabl e Encounter Details Date Type Department Care Team (Late st Contact Info) Description 10/30/2020 Transcribed Document [facility] [place] [address] [place] [address] ProviderChristina MD [address] [place] [address] Social History Tobacco Use Types [...] Performed On: 10/30/2020 15:00 EDT by BALWINDER WKOK, PT General Information, PT Therapy Diagnosis, PT [...] to Chair : Rehab Minimal assistance (Comment: PAIRER with gait belt [BALWINDER KWOK, PT - [...] BALWINDER KWOK, PT - 10/30/2020 16:28 EDT Scrap Iron Cutter Goals Mobility/Bed Mobility LTG PT Grid Goal [...] - 10/30/2020 16:28 EDT Electronically signed by [facility] Conversion Cashier Clerk Cerner at 10/14/2022 11:44 AM CDT documented in this encounter Plan of Treatment Not on file documented as of this encounter Visit Diagnoses Not on filedocumented in this encounter
--- OUTSIDE RECORDS SUMMARY | 2025-06-26 04:51 | XMS_ITS | Encounter Summary ---
Author Organization [employer] ([place], [place], [place], [place], [place]) Address [address] [place] [address] Care Team Providers Care Installation & Maintenance Executive Name Role Phone Unavailable Primary Care Provider Unavailabl e Encounter Details Date Type Department Care Team (Late st Contact Info) Description 10/30/2020 Transcribed Document [facility] Family Medicine [address] [place] [address] ProviderChristina MD [address] [place], [place] [phone] Social History Tobacco Use Types Packs/Day Years [...]
--- OUTSIDE RECORDS SUMMARY | 2025-06-26 04:51 | XMS_ITS | Encounter Summary ---
Author Organization [employer] ([place], [place], [place], [place], [place]) Address [address] [place] [address] Care Team Providers Care Channel Opener Name Role Phone Unavailable Primary Care Provider Unavailabl e Encounter Details Date Type Department Care Team (Late st Contact Info) Description 10/31/2020 Transcribed Document [facility] [place] Medicine [address] [place] [address] ProviderChristina MD [address] [place] [address] Social History Tobacco Use Types Packs/Day Years Used Date Smoking Tobacco: Never Assessed Sex and Gender Information Value Date Recorded Sex Assigned at Not on file Legal Sex Male 1:42 PM CDT Gender Identity Not on file Sexual Orientation Not on file documented as of this encounter Miscellaneous Notes * Cerner Conversion Note - Christina ProviderMD - 10/31/2020 1:15 PM CDT [facility] [place], [place] [id number] SHANNAN SAMANIEGO SR :1955 Visit Time:10/29/2020 Your [...] call for a follow up appointment with [facility]. Where: [address] [facility] [address] [place] [address]- Business (1) Medications What How Much When Instructions Next Dose acetaminophen/ butalbital/ caffeine (Fioricet oral capsule) 1 Capsule(s) Oral Every 6 Hours as needed for Headache Duration: 3 Day(s) Printed Prescription atorvastatin (atorvastatin 40 mg oral tablet) 1 Tablet(s) Oral Every Day Duration: 90 Day(s) Pickup at [facility] sucralfate (Carafate 1 g/ 10 mL oral suspension) 10 Milliliter(s) Oral Before Meals Pickup at [facility] LORazepam (LORazepam 0.5 mg oral tablet) 1 [...] Hours as needed for Nausea Pharmacy Information [facility]: [address] [facility] [address] [place], [place] [phone] Take your medications faithfully. Do NOT skip [...] with your condition: Managing pain ??? Take cvlf-cmv-xorhihj and prescription medicines only as told by [...] provider. Document Revised: 01/02/2019 Document Reviewed: 01/02/2019 [employer] Patient Education ?? 2020 [place]ak. acetaminophen, butalbital, and caffeine (a SEET a [...] Acetaminophen is a pain reliever and fever ram car operator. Butalbital is in a group of drugs [...] may report side effects to FDA at 0-302-OBB-2275. What other drugs will affect acetaminophen, butalbital, [...] acetaminophen, butalbital, and caffeine, including prescription and kvcu-qgn-ysdbspl medicines, vitamins, and herbal products. Tell each [...] to ensure that the information provided by [employer]. ('[employer]') is accurate, up-to-date, and complete, but no guarantee is made to that effect. Drug information contained herein may be time sensitive. [employer] information has been compiled for use by healthcare practitioners and consumers in the [place] and therefore [employer] does not warrant that uses outside of the [place] are appropriate, unless specifically indicated otherwise. [employer] drug information does not endorse drugs, diagnose patients or recommend therapy. [employer] drug information is an informational resource designed [...] effective or appropriate for any given patient. [employer] does not assume any responsibility for any aspect of healthcare administered with the aid of information [employer] provides. The information contained herein is not intended to cover all possible uses, directions, precautions, warnings, drug interactions, allergic reactions, or adverse effects. If you have questions about the drugs you are taking, check with your doctor, nurse or pharmacist. Copyright 0339-7361 [employer]. Version: 6.02. Revision Date: 07/22/2015. sucralfate (oral) [...] may report side effects to FDA at 8-433-IKT-5669. What other drugs will affect sucralfate? Other drugs may affect sucralfate, including prescription and klbc-ivr-mzegiev medicines, vitamins, and herbal products. Tell your [...] to ensure that the information provided by [employer]. ('[employer]') is accurate, up-to-date, and complete, but no guarantee is made to that effect. Drug information contained herein may be time sensitive. [employer] information has been compiled for use by healthcare practitioners and consumers in the [place] and therefore [employer] does not warrant that uses outside of the [place] are appropriate, unless specifically indicated otherwise. [employer] drug information does not endorse drugs, diagnose patients or recommend therapy. [employer] [place] drug information is an informational resource designed [...] effective or appropriate for any given patient. [employer] does not assume any responsibility for any aspect of healthcare administered with the aid of information [employer] provides. The information contained herein is not intended to cover all possible uses, directions, precautions, warnings, drug interactions, allergic reactions, or adverse effects. If you have questions about the drugs you are taking, check with your doctor, nurse or pharmacist. Copyright 8091-4994 [facility] [employer]. Version: 03.28. Revision Date: 08/29/2020. atorvastatin (a [...] may report side effects to FDA at 3-317-QKH-4980. What other drugs will affect atorvastatin? Certain [...] may affect atorvastatin. This includes prescription and fxxk-qpo-asekmis medicines, vitamins, and herbal products. Not all [...] to ensure that the information provided by [employer]. ('[employer]') is accurate, up-to-date, and complete, but no guarantee is made to that effect. Drug information contained herein may be time sensitive. [employer] information has been compiled for use by healthcare practitioners and consumers in the [place] and therefore [employer] does not warrant that uses outside of the [place] are appropriate, unless specifically indicated otherwise. [employer]'s drug information does not endorse drugs, diagnose patients or recommend therapy. [place] drug information is an informational resource designed [...] effective or appropriate for any given patient. [facility] does not assume any responsibility for any aspect of healthcare administered with the aid of information [employer] provides. The information contained herein is not intended to cover all possible uses, directions, precautions, warnings, drug interactions, allergic reactions, or adverse effects. If you have questions about the drugs you are taking, check with your doctor, nurse or pharmacist. Copyright 9806-4197 [employer]. Version: 22.02. Revision Date: 08/06/2020. Emergency Awareness [...] Assistance with quitting is available by contacting 3-309-CCAA-NOW. This is a free resource providing counseling, [...] range between ( 0.0 and 7.0 ) [place] #: 0.41 K/uL -- Normal range between ( 0.16 and 1.00 ) [place] #: 0.10 x10(3)/uL -- Normal range between ( 0.00 and 0.80 ) [place] %: 7.5 % -- Normal range between [...] was given the opportunity to ask questions. Patient/Radio Personality Name: Patient/Radio Personality Signature: Relationship to Patient: Clinician/Hospital Radio Personality Signature: Date: documented in this encounter Plan of Treatment Not on file documented as of this encounter Visit Diagnoses Not on filedocumented in this encounter
--- OUTSIDE RECORDS SUMMARY | 2025-06-26 04:51 | XMS_ITS | Encounter Summary ---
Author Organization Healthcare Address [address] [place] [address] Care Team Providers Care Tobacco Wrapping Machine Tender Name Role Phone Teo Dominguez MD Primary Care Provider + [phone] See Gann MD Unavailable [phone] Rufina Shrestha DDS Unavailable + Varinder Dey Unavailable Reason for Visit * Reason Onset Date Comments HCN - Patient Message 06/18/2025 Encounter Details Date Type Department Care Team (Late st Contact Info) Description 06/18/2025 Telephone [facility] [address], [address] [place] [address] Shayne Hsu MD [address] [place] [address] HCN - Patient Message Social History Tobacco Use Types Packs/Day Years [...] encounter Miscellaneous Notes * Telephone Encounter - Claudia Kent - 06/18/2025 12:01 PM EST Patient Phone Message Reason for Call: Status of MRI that is to be done at [facility] Best contact number and optimal time of day to reach caller: Pt [phone] Note: Please do not reply to this message. Follow-up communication and further actions as a result of this message need to be communicated with the patient directly, if the patient is not active onMyChart. If the patient is active on MyChart, they will receive notification of the communication/outcome via [employer]. documented in this encounter Plan of Treatment [...] documented as of this encounter Care Teams Tobacco Wrapping Machine Tender Relationship Specialty Start Date End Date Teo Dominguez MD [address] [place] [address] PCP - General 11/08/20 See Gann MD [address] [place] [address] Surgeon Neurosurgery 01/07/21 Rufina Shrestha DDS [address] [place] [address] Dentist Dentist 08/19/22 Varinder Dey Dentist 08/19/22 documented as of this encounter
--- OUTSIDE RECORDS SUMMARY | 2025-06-26 04:51 | XMS_ITS | Encounter Summary ---
Author Organization [employer] ([place], [place], [place], [place], [place]) Address [address] [place] [address] Care Team Providers Care Hplc Chemist Name Role Phone Unavailable Primary Care Provider Unavailabl e Encounter Details Date Type Department Care Team (Late st Contact Info) Description 10/30/2020 Transcribed Document [facility] [place] [address] [place] [address] ProviderChristina MD [address] [place] [address] Social History Tobacco Use Types [...]
--- OUTSIDE RECORDS SUMMARY | 2025-06-26 04:51 | XMS_ITS | Encounter Summary ---
Author Organization [employer] ([place], [place], [place], [place], [place]) Address [address] [place] [address] Care Team Providers Care Physical Laboratory Assistant Name Role Phone Unavailable Primary Care Provider Unavailabl e Encounter Details Date Type Department Care Team (Late st Contact Info) Description 10/31/2020 Transcribed Document [facility] [place] [facility] [place] [address] ProviderChristina MD [address] [place], [place] [id number] Social History Tobacco Use Types Packs/Day Years [...] Health Plan: [employer] P[employer] Policy Number: [id number] Authorization Number: Insurance 2 Health Plan: [facility] Policy Number: [id number] Authorization Number: Insurance Primary Name : [employer] P[employer] Policy Number: [id number] Authorization Status-Primary : Opo status approv Authorized Service Begin Date-Primary : 10/29/2020 EDT Observation Authorization Nbr-Primary : [id number] Historical Authorization Comments-Primary : Comment 1: Submitted for and obtained OBS approval from [facility] OBS auth# [id number] (CATE KOHLER, Rotary Rig Engine Operator 10/30/2020 13:47) Nasima Salgado Rn-Utilization Review - 10/31/2020 9:22 EDT Electronically signed by [facility], [facility] Conversion Plater Printed Circuit Board Panels Cerner at 10/14/2022 11:25 AM CDT documented in this encounter Plan of Treatment Not on file documented as of this encounter Visit Diagnoses Not on filedocumented in this encounter
--- OUTSIDE RECORDS SUMMARY | 2025-06-26 04:51 | XMS_ITS | Encounter Summary ---
Author Organization Healthcare Address [address] [place] [address] Care Team Providers Care Vp Integrity Name Role Phone Teo Dominguez MD Primary Care Provider + [phone] See Gann MD Unavailable [phone] Rufina Shrestha DDS Unavailable + Varinder Dey Unavailable Encounter Details Date Type Department Care Team (Late st Contact Info) Description 06/07/2025 Orders Only [place] [facility] [address], [address] [place] [id number] Shayne Bach MD [address] [facility] [place], [address] Degeneration, intervertebral disc, cervical (Primary Dx) Social History Tobacco Use Types [...] as of this encounter Visit Diagnoses Diagnosis Degeneration, intervertebral disc, cervical- Primary Degeneration of cervical intervertebral disc documented in this encounter Additional Health Concerns Assessment Noted Time PHQ-9 Depression Total Score: 13 022 12:43 PM EDT A fall risk assessment has been complete d for the patient 06/07/2025 8:19 AM EST A Body Mass Index follow-up plan has been documented for the patient 06/07/2025 12:48 PM EST documented as of this encounter Care Teams Vp Integrity Relationship Specialty Start Date End Date Teo Dominguez MD [address] [place] [address] PCP - General 11/08/20 See Gann MD [address] [place] [address] Surgeon Neurosurgery 01/07/21 Rufina Shrestha DDS [address] [place] [address] Dentist Dentist 08/19/22 Varinder Dey Dentist 08/19/22 documented as of this encounter
--- OUTSIDE RECORDS SUMMARY | 2025-06-26 04:51 | XMS_ITS | Clinical Summary ---
Author Organization [employer] ([place], [place], [place], [place], [place]) Address [address] [place] [address] Care Team Providers Care Rental Car Porter Name Role Phone Unavailable Primary Care Provider [...]
--- OUTSIDE RECORDS SUMMARY | 2025-06-26 04:51 | XMS_ITS | Encounter Summary ---
Author Organization [employer] ([place], [place], [place], [place]) Address [address] [place] [address] Care Team Providers Care Benefits Assistant Name Role Phone Unavailable Primary Care Provider Unavailabl e Encounter Details Date Type Department Care Team (Late st Contact Info) Description 10/30/2020 Transcribed Document [facility] [place] Family Medicine [address] [place] [address] ProviderChristina MD [address] [place] [address] Social History Tobacco Use Types [...] Health Plan: [employer] PPO Policy Number: [id number] Authorization Number: Insurance 2 Health Plan: [facility] Policy Number: [id number] Authorization Number: Insurance Primary Name : [employer] PPO Policy Number: [id number] Authorized Service Begin Date-Primary : 10/29/2020 EDT Historical Authorization Comments-Primary : No Authorization Comments Found Nasima Salgado Rn-Utilization Review - 10/30/2020 13:38 EDT Electronically signed by [facility] Conversion Marble Finisher Esdras at 10/14/2022 11:42 AM CDT documented in this encounter Plan of Treatment Not on file documented as of this encounter Visit Diagnoses Not on filedocumented in this encounter
--- OUTSIDE RECORDS SUMMARY | 2025-06-26 04:51 | XMS_ITS | Encounter Summary ---
Author Organization [employer] ([place], [place], [place], [place], [place]) Address [address] [place] [address] Care Team Providers Care Corporate Development Analyst Name Role Phone Unavailable Primary Care Provider Unavailabl e Encounter Details Date Type Department Care Team (Late st Contact Info) Description 10/30/2020 Transcribed Document [facility] [place] [address] [place] [address] ProviderChristina MD [address] [place] [address] Social History Tobacco Use Types [...] On: 10/30/2020 11:07 EDT by PRIETO MILLS RN-Marketing Account Manager Initial Assessment I Previously Documented Living Environment [...] Is Guardianship Needed : No PRIETO MILLS RN-Marketing Account Manager - 10/30/2020 11:07 EDT Initial Assessment II Sensory and Motor Deficits : None Current Home Treatments and Equipment : None PRIETO MILLS RN-Marketing Account Manager - 10/30/2020 11:07 EDT Discharge Needs I Anticipated Discharge Date : 10/31/2020 EDT Anticipated Discharge To, CM : Home with family care Current Home Treatment/Equipment : Current Home Treatment/Equipment No qualifying data available. Post Acute/Home Treatments : None Documentation Status Complete : Yes PRIETO MILLS RN-Marketing Account Manager - 10/30/2020 11:07 EDT Discharge Needs II Professional Skilled Services : Professional Skilled Services No qualifying data available. Needs Assistance with Transportation : No PRIETO MILLS RN-Marketing Account Manager - 10/30/2020 11:07 EDT Narrative Note Narrative Note : Received from outside facility to here due to headache, placed in observation. Neurology has been consulted. Met with Pt at the bedside. Role of CM explained. Pt states that he is ADL independent, lives home alone, but has his cymro yeager (like my service dog). Plans are to return home when discharged. Pt states that he has bulging discs and wonders if these are causing his issues. No needs anticipated/verbalized at this time. RRS is low @ 31, boost 5. CM will follow. PRIETO MILLS RN-Marketing Account Manager - 10/30/2020 11:07 EDT documented in this encounter Plan of Treatment Not on file documented as of this encounter Visit Diagnoses Not on filedocumented in this encounter
--- OUTSIDE RECORDS SUMMARY | 2025-06-26 04:51 | XMS_ITS | Encounter Summary ---
Author Organization Healthcare Address [address] [place] [id number] Care Team Providers Care Warhead Maintenance Specialist Name Role Phone Teo Dominguez MD Primary Care Provider + [phone] See Gann MD Unavailable [phone] Rufina Shrestha DDS Unavailable + Varinder Dey Unavailable Encounter Details Date Type Department Care Team (Late st Contact Info) Description 05/08/2025 Orders Only External Location [address] [place] [id number] Provider, External Social History Tobacco Use Types [...] Procedure Name Priority Date/Time Associated Diagnosis Comments MR NEURO OUTSIDE IMAGES 05/08/2025 documented in this encounter Results * MR NEURO OUTSIDE IMAGES (05/08/2025) Anatomical Region Laterality Modality Magnetic Resonan ce 05/08/2025 us External Provider IMG MRI PROCEDURES Final Resul t documented in this encounter Visit Diagnoses Not [...] documented as of this encounter Care Teams Warhead Maintenance Specialist Relationship Specialty Start Date End Date Teo Dominguez MD [address] [place] [address] PCP - General 11/08/20 See Gann MD [address] [place] [address] Surgeon Neurosurgery 01/07/21 Rufina Shrestha DDS [address] [place] [address] Dentist Dentist 08/19/22 Varinder Dey Dentist 08/19/22 documented as of this encounter
--- OUTSIDE RECORDS SUMMARY | 2025-06-26 04:51 | XMS_ITS | Continuity of Care Document ---
[facility] Organization [facility] Address [address] [place] [address] Assessment No assessment recorded. Plan of Treatment Reminders Order Date Submit Date Provider Last Modified By Organization Details Last Modified Time Details Appointments None recorded. Lab PSA, total, serum or plasma 2024 025 [email or web address] [facility] ([facility], [address] [place] [address], [place], [address], 14:13:37 urinalysi s, dipstick [address], [address] [place], [address], 14:00:41 HbA1c (hemoglob in A1c), blood [address], [facility] [place], [address], 14:00:41 microalbu min/creat inine, mass ratio, urine [address], [facility]8 [facility] [place], [address], 14:00:41 lipid panel, serum 2024 025 [email or web address] [facility] ([facility], [address] [place], [address], 14:13:37 CMP, serum or plasma 2024 [email or web address] [facility] ([place]), [address] [place], [address], 14:13:37 CBC w/ auto diff 2024 [email or web address] [facility] ([place]), [address] [place], [address], 14:13:37 vitamin D, 25-hydrox y, total, serum 2024 [id number] [facility] ([place]), [address] [place], [address], 14:13:37 TSH, ultra-sen sitive, serum 2024 [id number] [facility] ([place]), [address] [place], [address], 14:13:37 Referral ENT surgery referral 2024 [facility], [address], [facility], [place], [address], 14:53:17 Procedures None recorded. Surgeries None recorded. Imaging None recorded. Medication Orders None recorded. Patient TargetsNo targets recorded. Patient Instructions Encounter Date Encounter Id Patient Instructions Last Modified By Organization Details Last Modified Time 06/25/2025 [id number] frequent urination: care instructions [email or web address] Not available 06/25/2025 14:00:41 learning about type 2 diabetes [email or web address] Not available 06/25/2025 14:00:41 type 2 diabetes: care instructions [email or web address] Not available 06/25/2025 14:00:41 Reason for Referral ENT Surgery Referral for Ted al obstruction Referring Physician: Disha Pineda, Family Medicine, Encounter Date: 06/25/2025 Results Created Date Observation Date Name Description Value Unit Range Abnormal Flag Note LastModifiedBy Organization Detail LastModifiedTime 06/25/20 25 06/25/2025 HbA1c (hemo globi n A1c), blood HbA1c 5.6 % Not Available [facility] [address] [place], [place] [address]ther [facility], [place], [address], 06/25/2025 13:31:40 06/25/20 25 06/25/2025 micro album in/cr eatin ine, mass ratio , urine Microalbumin 80 mg/L Not Available [address], [place], [address], 06/25/2025 13:31:44 06/25/20 25 06/25/2025 micro album in/cr eatin ine, mass ratio , urine Creatinine 300 mg/dL Not Available [address], [address], 06/25/2025 13:31:44 06/25/20 25 06/25/2025 micro album in/cr eatin ine, mass ratio , urine Ratio 30-300 mg/g Not Available [address], [place], [address], 06/25/2025 13:31:44 06/25/20 25 06/25/2025 urina lysis , dipst ick Leukocytes Negati ve Not Available [address], [address], 06/25/2025 13:48:43 06/25/20 25 06/25/2025 urina lysis , dipst ick Nitrite negati ve Not Available [facility] [address] [place] [address], [address], 06/25/2025 13:48:43 06/25/20 25 06/25/2025 urina lysis , dipst ick Urobilinogen .2 Not Available [address] [facility], [place], [address], 06/25/2025 13:48:43 06/25/20 25 06/25/2025 urina lysis , dipst ick Protein 30 Not Available [address], [place], [address], 06/25/2025 13:48:43 06/25/20 25 06/25/2025 urina lysis , dipst ick pH 6.0 Not Available [address], [place], [address], 06/25/2025 13:48:43 06/25/20 25 06/25/2025 urina lysis , dipst ick Blood Negati ve Not Available [address], [place], [address], 06/25/2025 13:48:43 06/25/20 25 06/25/2025 urina lysis , dipst ick Specific [place] 1.020 Not Available [address], [place], [address], 06/25/2025 13:48:43 06/25/20 25 06/25/2025 urina lysis , dipst ick Ketone Trace Not Available [address], [place], [address], 06/25/2025 13:48:43 06/25/20 25 06/25/2025 urina lysis , dipst ick Bilirubin Small Not Available [address], [address], 06/25/2025 13:48:43 06/25/20 25 06/25/2025 urina lysis , dipst ick Glucose Negati ve Not Available [address], [address], 06/25/2025 13:48:43 06/25/20 25 06/25/2025 urina lysis , dipst ick Appearance Clear Not Available [address], [address], 06/25/2025 13:48:43 06/25/20 25 06/25/2025 urina lysis , dipst ick Color Dark Yellow Not Available [address], [address], 06/25/2025 13:48:43 Result Notes None recorded. Problems Name Problem SNOMED Code Status Onset Date Resolution Date Notes Provider Name and Address Organization Details Recorded Time Chronic low back pain 796897301 Active 2024 [address] Que[address] [place] [address], [address], [employer] 5 11:25:21 Type 2 diabetes mellitus 67405600 Active 2024 LOUIE Quevedo [address] [place] [address], [address], [place] [employer] 5 11:25:45 Migraine 71882217 Active 2024 LOUIE Quevedo [address] [place] [address], [address], [place] [employer] 5 11:25:52 Generalized abdominal pain 891751286 Active 2024 LOUIE Quevedo [address] [place] [address], [address], [employer] 11:27:15 Anxiety 71459065 Active 2024 LOUIE Quevedo [address] [place] [address], [address], [employer] 5 11:13:54 Bronchitis 46675598 Active 2024 [place]OU[place] Cain [address] [place] [address], [address], [employer] 5 14:06:18 Frequent headache 336980842 Active 2024 LOUIE Quevedo [address] [place] [address], [address], [employer] 5 10:33:36 Increased frequency of urination 191809129 Active 2024 LOUIE Quevedo [address] [place] [address], [address], [employer] 5 16:04:09 Problem Notes None recorded. Procedures Surgical History Date Name Laterality Status Provider Name and Address Organization Details Recorded Time Cataract Surgery completed [facility] [employer] 02/27/2025 10:41:47 Colposcopy completed [facility]ordal[facility]Bung[facility] [employer] 02/27/2025 10:41:47 Eye Surgery completed FiordalizaDelfmems [facility] [employer] 02/27/2025 10:41:47 Cosmetic Surgery completed FiordalizaSI-B[employer] Quintin [employer] 02/27/2025 10:41:47 repair of aneurysm of aorta completed [employer]elf[facility] [place] [employer] Quintin [employer] 02/27/2025 10:55:36 Imaging Results None recorded. Procedure Notes None recorded. Medical Equipment None Reported. Allergies Allergen ID Allergen Name Allergen Category Reaction Reaction Severity Criticality Documentation Date Start Date Code Code System Note Provider Name and Address Organization Details Recorded Time 72093 Product containin g penicilli n (product) medicatio n rash Not available Not available 02/27/2025 27459 8001 [employer] 5 10:41:46 71410 Substance with sulfonami de structure and antibacte rial mechanism of action (substanc e) medicatio n other Not available Not available 02/27/2025 14423 8003 SNOMED Fiordaliza Vice null, [employer] 10:41:46 73487 latex environme nt,medica tion other Not available Not available 02/27/2025 38873 91 RxNorm Fiordaliza Vice null, [employer] 13:34:03 67729 [employer]romorp panfilo medicatio n anaphylax is Not available high 05/17/20252021 3423 RxNorm Not Available [employer] - External [employer] - prod 5 11:05:29 36056 Latex (substanc e) environme nt,medica tion Not available Not available low 05/17/20252016 01645 8007 SNOMED unrec ogniz ed react ion (text : Unkno wn - Patie nt state s they do not know rxn dmitriy delgado, code: 83345 [id number]) (from exter nal sourc e) Not Available [employer] - External Data Service - prod 5 11:05:29 Medications Name Sig Start Date Stop Date Status Note LastModified by Organization Details LastModified Time losartan 50 mg tablet Take 1 tablet every day by oral route. active Not Available Not Available No t Available atorvastati n 40 mg tablet TAKE ONE TABLET BY MOUTH EVERY NIGHT AT BEDTIME FOR CHOLESTER OL 2024 active Not Available Not Available Not Avai lable methocarbam ol 500 mg tablet Take 1 [...] ORAL ROUTE ONCE DAILY FOR 4 DAYS 06/25 completed Not Available Not Available Not Available ibuprofen 800 mg tablet Take 1 tablet 3 times a day by oral route for 10 days. 2024 active Not Available Not Available Not [...] Not Available hydrochloro thiazide 12.5 mg capsule TAKE ONE (1) CAPSULE BY MOUTH ONCE DAILY FOR FLUID active Not Available Not Available No t [...] 1 day, for 30 minutes before MRI. 06/25 completed Not Available Not Available Not Available albuterol sulfate HFA 90 mcg/actuati on aerosol [...] Not Avai lable Ubrelvy 100 mg tablet Take 1 tablet every day by oral route as needed, for headache. 06/25 completed Not Available Not Available Not Available Vitals Date Recorded Body height Body mass index (BMI) Body weight Oxygen saturation Heart rate Body temperature Systolic And Diastolic Systolic And Diastolic Provider Name and Address Organization Details Last Updated DateTime 172.72 cm 31.9 kg/m2 75733.9 6 g 95 % 60 /min 98 [degF] 148/84 mm[Hg] 150/88 mm[Hg] Fiordaliza Holman [employer] 13:41:28 Social History Question Answer Notes LastModified by Organization Details LastModified Time Tobacco Smoking Status Former Smoker Fiordaliza Holman saad, [employer]. 02/27/2025 10:53:37 Do You Have An Advance Directive? No Information not available 02/27/2025 Is Your Home Air Conditioned? Yes Information not available 02/27/2025 Are You A Caregiver? No Information not available 06/25/2025 What Type Of Diet Are You Following? DIABETIC Information not available 02/27/2025 What Is The Highest Grade Or Level Of School You Have Completed Or The Highest Degree You Have Received? [id number] Information not available 06/25/2025 Have There Been Any Changes To Your Family Or Social Situation? No Information not available 02/27/2025 When Did You Quit Smoking? 14+yearssincelgerry pope 2004 Stop Date Information not available 02/27/2025 Are There Any Guns Present In Your Home? No Information not available 06/25/2025 Which Of Your Hands Is Dominant? Right Information not available 02/27/2025 Do You Engage In Moderate/heavy Exercise (e.g. Brisk Walk, Jogging, Strength Training, Etc)? No Information not available 06/25/2025 Where Do You Live? SingleLevelHouse Information not available 06/25/2025 Do You Have A Medical Power Of Hogshead Packer? No Information not available 02/27/2025 What Was The Date Of Your Most Recent Tobacco Screening? 06/25/2025 Information not available 06/25/2025 Do You Have Any Pets? Yes Information not available 06/25/2025 What Is Your Relationship Status? Information not available 02/27/2025 Do You Wear A Seatbelt When Driving Or As A Passenger? Yes Information not available 06/25/2025 Do You Use Your Seat Belt Or Car Seat Routinely? Yes Information not available 02/27/2025 Are You Sexually Active? No Information not available 06/25/2025 Do You Have Smoke And Carbon Monoxide [...] Traveled Abroad? No Information not available 02/27/2025 What Contraceptive Method Was Reported At Start Of This Visit? None Information not available 06/25/2025 Do You Feel Safe In Your Home? Yes Information not available 06/25/2025 Do You Have Any Dietary Restrictions? No Information not available 02/27/2025 What Is Your Reason For Having No Contraceptive Method At Start Of This Visit? Abstinence Information not available 06/25/2025 Sex: Unknown Functional Status Question Answer Note LastModified by Organizat ion Details LastModified Time Do you use any illicit or recreational drugs? No Information not available 02/27/2025 Do you feel safe in your relationship? Yes Information n ot available 06/25/2025 Do you or have you ever used any other forms of tobacco or nicotine? No Information not available 02/27/2025 What is your level of alcohol consumption? None Information not available 06/25/2025 Are you currently employed? No Information not available 02/27/2025 Do you have transportation difficulties? No Information not available 02/27/2025 Are you able to care for yourself independently? Yes Information not available 02/27/2025 Mental Status Question Answer Note LastModified by Organization D etails LastModified Time Do you feel stressed (tense, restless, nervous, or anxious, or unable to sleep at night)? [id number] Information not available 02/27/2025 Family History Relationship [...] Vision or Eye Problems Y Arthritis Y Hospitalizations N Acid Reflux (GERD) Y Emergency room visit since last appointm ent. N Stroke Y Thyroid Problems Y Depression Y Asthma Y GI Problems Y High Cholesterol Y Hepatitis Y Headaches Y Hypertension Y Immunizations Vaccine Type Date Status Note Provider Nam e and Address Organization Details Recorded Time Influenza, split virus, trivalent, preservative 1 completed Not Available [facility] 06/25/2025 13:30:39 Influenza, split virus, trivalent, preservative 3 completed Not Available [facility] 06/25/2025 13:30:39 Influenza, split virus, trivalent, preservative 4 completed Not Available [facility] 06/25/2025 13:30:39 Influenza, split virus, trivalent, preservative 5 completed Not Available [facility] 06/25/2025 13:30:39 Influenza, split virus, quadrivalent, preservative 7 completed Not Available [facility] 06/25/2025 13:30:39 Influenza, split virus, quadrivalent, PF 8 completed Not Available [facility] 06/25/2025 13:30:39 Influenza, high-dose, trivalent, PF 0 completed Not Available [facility] 06/25/2025 13:30:39 Influenza, high-dose, trivalent, PF 0 completed Not Available [facility] 06/25/2025 13:30:39 COVID-19, mRNA, LNP-S, PF, 100 mcg/0.5mL dose or 50 mcg/0.25mL dose 1 completed Not Available [facility] 06/25/2025 13:30:39 COVID-19, mRNA, LNP-S, PF, 100 mcg/0.5mL dose or 50 mcg/0.25mL dose 1 completed Not Available [facility] 06/25/2025 13:30:39 Influenza, high-dose, trivalent, PF 4 completed Not Available [facility] 06/25/2025 13:30:39 Past Encounters Encounter ID Performer Location Encounter Start Date Encounter Closed Date Diagnosis/Indication Diagnosis SNOMED-CT Code Diagnosis ICD10 Code Diagnosis IMO Codes Diagnosis Note [id number] LOUIE Quevedo [facility] [address] [place] [address] 06/25/2025 13:27:51 06/25/2025 14:10:18 Type 2 diabetes mellitus 79070211 E11.9 91037121 Increased frequency of urination 346292581 R35.0 43567 f/iu with urology Nasal obstruction 108328 000 J34.89 66762 Screening for malignant neoplasm of prostate 705214926 Z12.5 000667 Health Concerns Section Related Observation LastModified by Organization Detai ls LastModified Time None Recorded Concern Status LastModified by Organization Details LastModified Time None Recorded Payers Encounter Date Sequence Insurance Name Policy Number Policy Luciano Covered Member ID Luciano Member ID Guarantor Name 06/25/2025 1 [facility] - DUAL ELIGIBLE (MEDICARE REPLACEMENT/A DVANTAGE - HMO) HEMALATHA Nolan [id number] Gigi Nolna 06/25/2025 2 [facility] (MEDICAID HMO) Gigi Nolan [id number] Gigi Nolan Notes Date Note Type Note Provider Name and Address Organization Details Recorded Time 06/25/2025 text/html ROS as noted in the HPI Patient presents for followupHistory of DM. Not currently taking meds but Hga1c 5.6Has had urinary frequency. Sees urology in July. He is taking alfuzosin.Saw neurology for abnormal MRI. 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 At night, he feels like it closes off and he feels like he is smothering. Would like referral to ENT. LOUIE Quevedo [address] [place] [address], [address], [facility] [employer] 06/25/2025 16:06:00
--- OUTSIDE RECORDS SUMMARY | 2025-06-26 04:51 | XMS_ITS | Encounter Summary ---
Author Organization Healthcare Address [address] [place] [address] Care Team Providers Care Marine Oiler Name Role Phone Teo Dominguez MD Primary Care Provider + [phone] See Gann MD Unavailable [phone] Rufina Shrestha DDS Unavailable + Varinder Dey Unavailable Encounter Details Date Type Department Care Team (Late st Contact Info) Description 05/17/2025 Telephone [place] [facility] [address] [place] [address] Shayne Hsu MD [address] [place] [address] Social History Tobacco Use Types Packs/Day Years [...] encounter Miscellaneous Notes * Telephone Encounter - Sharon Murcia - 05/17/2025 12:03 PM EST Spoke with patient and scheduled on 06/07. * Telephone Encounter - Marie Ambriz - 05/17/2025 10:04 AM EST Patient Phone Message Reason for Call: Pt is calling and needs an appointment he said that he had an MRI on 05/15 at [facility] that's shows a tumor not sure if it is same one and he has a severe headache and was told to make appointment. He asks for call Please advise. Best contact number and optimal time of day to reach caller: [phone] Note: Please do not reply to this message. Follow-up communication and further actions as a result of this message need to be communicated with the patient directly, if the patient is not active onMyChart. If the patient is active on MyChart, they will receive notification of the communication/outcome via [employer]. documented in this encounter Plan of Treatment [...] documented as of this encounter Care Teams Marine Oiler Relationship Specialty Start Date End Date Teo Dominguez MD [address] [place] [address] PCP - General 11/08/20 See Gann MD [address] [facility] [address] [place] [address] Surgeon Neurosurgery 01/07/21 Rufina Shrestha DDS [address] [facility] [address] [place] [address] Dentist Dentist 08/19/22 Varinder Dey Dentist 08/19/22 documented as of this encounter
--- OUTSIDE RECORDS SUMMARY | 2025-06-26 04:51 | XMS_ITS | Encounter Summary ---
Author Organization [employer] ([place], [place], [place], [place], [place]) Address [address] [place] [address] Care Team Providers Care Electrical Controls Technician Name Role Phone Unavailable Primary Care Provider Unavailabl e Encounter Details Date Type Department Care Team (Late st Contact Info) Description 10/30/2020 Transcribed Document [facility] Family Medicine [address] [place] [address] ProviderChristina MD [address], [place] [...]
--- OUTSIDE RECORDS SUMMARY | 2025-06-26 04:51 | XMS_ITS | Encounter Summary ---
Author Organization Healthcare Address [address] [place] [address] Care Team Providers Care Global Upstream Marketing Manager Name Role Phone Teo Dominguez MD Primary Care Provider + [phone] See Gann MD Unavailable [phone] Rufina Shrestha DDS Unavailable + Varinder Dey Unavailable Encounter Details Date Type Department Care Team (Latest Contact Info) Description 06/07/2025 Travel Social History Tobacco Use Types Packs/Day [...] as of this encounter Functional Status * Communicable Disease Screening Question Answer Date of Assessment Author Have you been in contact wit h someone who was sick? No / Unsure 06/07/2025 8:07 AM Michel Tipton Do you have any of the following new or worsening symptoms? None of these 06/07/2025 8:07 AM Jenny Tipton * Travel Screening Question Answer Date of Assessment Author Have you traveled [place] or domestically in the last month? No 06/07/2025 8:07 AM Jenny Ndiaye documented as of this encounter Mental Status * Communicable Disease Screening Question Answer Entry Date Author Have you been in contact wit h someone who was sick? No / Unsure 06/07/2025 8:07 AM EST Mcihel Ansari Do you have any of the following new or worsening symptoms? None of these 06/07/2025 8:07 AM EST Jenny Ansari * Travel Screening Question Answer Entry Date Author Have you traveled [place] or domestically in the last month? No 06/07/2025 8:07 AM EST Jenny Ricci documented in this encounter Plan of Treatment [...] documented as of this encounter Care Teams Global Upstream Marketing Manager Relationship Specialty Start Date End Date Teo Dominguez MD [address] [place] [address] PCP - General 11/08/20 See Gann MD [address] [place] [address] Surgeon Neurosurgery 01/07/21 Rufina Shrestha DDS [address] [place] [address] Dentist Dentist 08/19/22 Varinder Dey Dentist 08/19/22 documented as of this encounter
--- OUTSIDE RECORDS SUMMARY | 2025-06-26 04:51 | XMS_ITS | Encounter Summary ---
Author Organization Healthcare Address [address] [place] [address] Care Team Providers Care Fixed Wing Aircraft Flight Engineer Name Role Phone Teo Dominguez MD Primary Care Provider + [phone] See Gann MD Unavailable [phone] Rufina Shrestha DDS Unavailable + Varinder Dey Unavailable Encounter Details Date Type Department Care Team (Late st Contact Info) Description 01/30/2025 Orders Only External Location [address] [place] [phone] Provider, External Social History Tobacco Use Types [...] Associated Diagnosis Comments CT NEURO OUTSIDE IMAGES 01/30/2025 documented in this encounter Results * CT NEURO OUTSIDE IMAGES (01/30/2025) Anatomical Region Laterality Modality Computed Tomogra phy 01/30/2025 us External Provider IMG CT PROCEDURES Final [...] documented as of this encounter Care Teams Fixed Wing Aircraft Flight Engineer Relationship Specialty Start Date End Date Teo Dominguez MD [address] [place], [place] [id number] PCP - General 11/08/20 See Gann MD [address] [place] [address] Surgeon Neurosurgery 01/07/21 Rufina Shrestha DDS [address] [place] [address] Dentist Dentist 08/19/22 Varinder Dey Dentist 08/19/22 documented as of this encounter
--- OUTSIDE RECORDS SUMMARY | 2025-06-26 04:51 | XMS_ITS | Encounter Summary ---
Author Organization Healthcare Address [address] [place] [id number] Care Team Providers Care Painter Chassis Name Role Phone Teo Dominguez MD Primary Care Provider + [phone] See Gann MD Unavailable [phone] Rufina Shrestha DDS Unavailable + Varinder Dey Unavailable Encounter Details Date Type Department Care Team (Late st Contact Info) Description 02/08/2024 Orders Only External Location [address] [place] [address] Provider, External Social History Tobacco Use Types [...] documented as of this encounter Care Teams Painter Chassis Relationship Specialty Start Date End Date Teo Dominguez MD [address] [place], [place] [id number] PCP - General 11/08/20 See Gann MD [address] [address] Surgeon Neurosurgery 01/07/21 Rufina Shrestha DDS [address] [address] Dentist Dentist 08/19/22 Varinder Dey Dentist 08/19/22 documented as of this encounter
--- OUTSIDE RECORDS SUMMARY | 2025-06-26 04:51 | XMS_ITS | Encounter Summary ---
Author Organization [employer] ([place], [place], [place], [place], [place]) Address [address] [place] [address] Care Team Providers Care Angledozer Operator Name Role Phone Unavailable Primary Care Provider Unavailabl e Encounter Details Date Type Department Care Team (Late st Contact Info) Description 10/30/2020 Transcribed Document [facility] [place] Former[facility] [place] [address] ProviderChristina MD [address] [place] [address] Social History Tobacco Use Types [...] hospital yesterday from the emergency room at [facility] for headaches and syncope, and I [...] the left. He decided to come to [facility] Emergency Room, where he was given [...] hydrocodone. SOCIAL HISTORY: The patient lives in [place] by himself, he . 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 He uses a [...] tongue, however, protrudes midline. Coordination shows intact hozxcl-nm-dtma and wxec-ng-xhra bilaterally. Gait was not tested. DIAGNOSTIC STUDIES: IMAGING STUDIES: He had a CTA of the head and neck at [facility] yesterday. The CTA of the head showed no large vessel occlusion. 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 The patient had a CTA of the neck that was normal. The patient had a CT scan of his head at [facility] that suggested calcification of the right [...] of the head and neck done at [facility]. I have asked the staff to [...] artery appeared diffusely small throughout its course. /[id number] MD MAR Kulkarni/AQ / MAR / MODL /[id number] documented in this encounter Plan of Treatment Not on file documented as of this encounter Visit Diagnoses Not on filedocumented in this encounter
--- OUTSIDE RECORDS SUMMARY | 2025-06-26 04:51 | XMS_ITS | Data Portability ---
Author Organization [employer] [place] [facility] Address [address] [place] [address] Assessment No assessment recorded. Plan of Treatment Reminders Order Date Submit Date Provider Last Modified By Organization Details Last Modified Time Details Appointments None recorded. Lab PSA, total, serum or plasma 2024 025 [email or web address] [address] [place] [address], [address], 14:13:37 urinalysis , dipstick [address], [facility] [place], [address], 14:00:41 HbA1c (hemoglobi n A1c), blood [address], [address] [place], [address], 14:00:41 microalbum in/creatin ine, mass ratio, urine [address], [address] [place], [address], 14:00:41 lipid panel, serum 2024 025 [email or web address] [facility] ([facility]), [address] [place], [address], 5 14:13:37 CMP, serum or plasma 2024 [id number] [facility] ([facility]), [address] [place], [address], 5 14:13:37 CBC w/ auto diff 2024 [email or web address] [facility] ([facility]), [address] [place], [address], 5 14:13:37 vitamin D, 25-hydroxy , total, serum 2024 [email or web address] [facility] ([facility]), [address] [place] [address], [address], 5 14:13:37 TSH, ultra-sens itive, serum 2024 [email or web address] [facility] ([facility]), [address] [place] [address], [address], 5 14:13:37 rapid flu (A+B) [address], [address] [place], [address], 5 14:07:21 rapid SARS CoV 2 Ag, QL, IA, upper respirator y specimen [address], [address] [facility], [place], [address], 5 14:07:21 HbA1c (hemoglobi n A1c), blood [address], [address] [facility], [place], [address], 11:26:22 microalbum in/creatin ine, mass ratio, urine 2024 025 [facility], [address] [facility], [place], [address], 11:26:22 Referral ENT surgery referral 2024 025 [facility], [address], [place], [address], 14:53:17 Procedures None recorded. Surgeries None recorded. Imaging MRI, brain, w/o contrast 2024 025 [email or web address] [facility], [address], [place], [address], 15:54:09 Medication Orders azithromyc in 250 mg tablet 2024 025 [facility], [address], [address], 5 13:30:52 prednisone 20 mg tablet 2024 025 [facility], [address], [address], 5 05:02:38 Lidoderm 5 % topical patch 2024 025 [facility], [address], [address], 5 11:33:59 Ubrelvy 100 mg tablet 2024 025 [facility], [address], [address], 5 13:37:14 ofloxacin 0.3 % eye drops 2024 025 [facility], [address] [facility] [place], [address], 11:33:59 Patient TargetsNo targets recorded. Patient Instructions Encounter Date Encounter Id Patient Instructions Last Modified By Organization Details Last Modified Time 02/27/2025 [id number] abdominal pain: care instructions [email or web address] Not available 02/27/2025 11:27:30 learning about type 2 diabetes [email or web address] Not available 02/27/2025 11:26:22 type 2 diabetes: care instructions [email or web address] Not available 02/27/2025 11:26:22 03/13/2025 [id number] bronchitis: care instructions Not available 03/13/2025 14:07:04 06/25/2025 [id number] frequent urination: care instructions Not available 06/25/2025 14:00:41 learning about type 2 diabetes [email or web address] Not available 06/25/2025 14:00:41 type 2 diabetes: care instructions [email or web address] Not available 06/25/2025 14:00:41 Reason for Referral ENT Surgery Referral for Ted al obstruction Referring Physician: Disha Pineda, Family Medicine, Encounter Date: 06/25/2025 Results Created Date Observation Date Name Description Value Unit Range Abnormal Flag Note LastModifiedBy Organization Detail LastModifiedTime 02/28/2002/27/2025 micro album in/cr eatin ine, mass ratio , urine Microalbumin 10 mg/L Not Available [facility] [address] [place] [address], [address], 02/27/2025 11:01:14 02/28/20 25 02/27/2025 micro album in/cr eatin ine, mass ratio , urine Creatinine 200 mg/dL Not Available [facility] [address] [facility], [place], [address], 02/27/2025 11:01:14 02/28/20 25 02/27/2025 micro album in/cr eatin ine, mass ratio , urine Ratio <30 mg/g Not Available [facility] [address] [facility], [place], [address], 02/27/2025 11:01:14 02/28/2002/27/2025 HbA1c (hemo globi n A1c), blood HbA1c 5.6 % Not Available [address], [place], [address], 02/27/2025 10:55:06 03/13/20 25 03/13/2025 rapid SARS CoV 2 Ag, QL, IA, upper respi rator y speci men SARS CoV Ag negati ve Not Available [address], [place], [address], 03/13/2025 13:27:31 03/13/20 25 03/13/2025 rapid flu (A+B) Flu A negati ve Not Available [address], [address], 03/13/2025 13:27:22 03/13/20 25 03/13/2025 rapid flu (A+B) Flu B negati ve Not Available [address], [place], [address], 03/13/2025 13:27:22 06/25/20 25 06/25/2025 HbA1c (hemo globi n A1c), blood HbA1c 5.6 % Not Available [address], [address], 06/25/2025 13:31:40 06/25/20 25 06/25/2025 micro album in/cr eatin ine, mass ratio , urine Microalbumin 80 mg/L Not Available [address], [address], 06/25/2025 13:31:44 06/25/20 25 06/25/2025 micro album in/cr eatin ine, mass ratio , urine Creatinine 300 mg/dL Not Available [address], [place], [address], 06/25/2025 13:31:44 06/25/20 25 06/25/2025 micro album in/cr eatin ine, mass ratio , urine Ratio 30-300 mg/g Not Available [address], [place], [address], 06/25/2025 13:31:44 06/25/20 25 06/25/2025 urina lysis , dipst ick Leukocytes Negati ve Not Available [address], [place], [address], 06/25/2025 13:48:43 06/25/20 25 06/25/2025 urina lysis , dipst ick Nitrite negati ve Not Available [address], [place], [address], 06/25/2025 13:48:43 06/25/20 25 06/25/2025 urina lysis , dipst ick Urobilinogen .2 Not Available [address], [place], [address], 06/25/2025 13:48:43 06/25/20 25 06/25/2025 urina lysis , dipst ick Protein 30 Not Available [address], [address], 06/25/2025 13:48:43 06/25/20 25 06/25/2025 urina lysis , dipst ick pH 6.0 Not Available [address], [address], 06/25/2025 13:48:43 06/25/20 25 06/25/2025 urina lysis , dipst ick Blood Negati ve Not Available [address], [place], [address], 06/25/2025 13:48:43 06/25/20 25 06/25/2025 urina lysis , dipst ick Specific [place] 1.020 Not Available [address], [place], [address], 06/25/2025 13:48:43 06/25/2006/25/2025 urina lysis , dipst ick Ketone Trace Not Available [address], [place], [address], 06/25/2025 13:48:43 06/25/20 25 06/25/2025 urina lysis , dipst ick Bilirubin Small Not Available [address], [place], [address], 06/25/2025 13:48:43 06/25/20 25 06/25/2025 urina lysis , dipst ick Glucose Negati ve Not Available [address], [place], [address], 06/25/2025 13:48:43 06/25/20 25 06/25/2025 urina lysis , dipst ick Appearance Clear Not Available [address], [place], [address], 06/25/2025 13:48:43 06/25/20 25 06/25/2025 urina lysis , dipst ick Color Dark Yellow Not Available [address], [place], [address], 06/25/2025 13:48:43 02/28/2009/17/2024 CT, abdom en + pelvi s, w/o contr ast No observ ation record ed. [email or web address] [facility] (Med Record) [address], [place], [address], 02/27/2025 12:05:03 04/17/20 25 04/13/2025 MRI, brain , w/o contr ast No observ ation record ed. [address], [place], [address], 04/17/2025 11:56:07 05/08/20 25 05/08/2025 MRI, brain , w/o contr ast No observ ation record ed. [email or web address] [facility] -New Scheduling [address], [place], [address], 05/17/2025 11:56:23 Result Notes None recorded. Problems Name Problem SNOMED Code Status Onset Date Resolution Date Notes Provider Name and Address Organization Details Recorded Time Chronic low back pain 542948183 Active 2024 LOUIE Quevedo [address] [place] [address], [address], [employer] 11:25:21 Type 2 diabetes mellitus 77707258 Active 2024 LOUIE Quevedo [address] [place] [address], [address], [employer] 5 11:25:45 Migraine 35539647 Active 2024 LOUIE Quevedo [address] [place] [address], [address], [employer] 5 11:25:52 Generalized abdominal pain 961154676 Active 2024 LOUIE Quevedo [address] [place] [address], [address], [employer] 11:27:15 Anxiety 44501999 Active 2024 DishaLOUIE Cain [address] [place] [address], [address], [employer] 5 11:13:54 Bronchitis 59059189 Active 2024 Disha LOUIE Pineda [address] [place] [address], [address], [employer] 5 14:06:18 Frequent headache 455867302 Active 2024 Disha LOUIE Pineda [address] [place] [address], [address], [employer] 5 10:33:36 Increased frequency of urination 836164421 Active 2024 Disha LOUIE Pineda [address] [place] [address], [address], [employer] 5 16:04:09 Problem Notes None recorded. Procedures Surgical History Date Name Laterality Status Provider Name and Address Organization Details Recorded Time Cataract Surgery completed [employer] 02/27/2025 10:41:47 Colposcopy completed [employer] [facility] [employer] 02/27/2025 10:41:47 Eye Surgery completed [employer] [facility] [employer] 02/27/2025 10:41:47 Cosmetic Surgery completed [employer] 02/27/2025 10:41:47 repair of aneurysm of aorta completed [employer] 02/27/2025 10:55:36 Imaging Results None recorded. Procedure Notes None recorded. Medical Equipment None Reported. Allergies Allergen ID Allergen Name Allergen Category Reaction Reaction Severity Criticality Documentation Date Start Date Code Code System Note Provider Name and Address Organization Details Recorded Time 07131 Product containin g penicilli n (product) medicatio n rash Not available Not available 02/27/2025 45491 8001 SNOMED [facility] [employer] 5 10:41:46 15062 Substance with sulfonami de structure and antibacte rial mechanism of action (substanc e) medicatio n other Not available Not available 02/27/2025 29846 8003 SNOMED [employer], [employer] 5 10:41:46 52345 latex environme nt,medica tion other Not available Not available 02/27/2025 75495 91 RxNorm [employer] null, [employer] 5 13:34:03 17053 [employer] panfilo medicatio n anaphylax is Not available high 05/17/20252021 3423 RxNorm Not Available leyla - External Data Service - prod 5 11:05:29 56490 Latex (substanc e) environme nt,medica tion Not available Not available low 05/17/20252016 52559 8007 SNOMED unrec ogniz ed react ion (text : Unkno wn - Patie nt state s they do not know rxn detai ls, code: 97770 5006) (from exter nal sourc e) Not [...] Available Not Available Vitals Date Recorded Body weight Body mass index (BMI) Body height Oxygen saturation Heart rate Body temperature Systolic And Diastolic Provider Name and Address Organization Details Last Updated DateTime 52841.0 1 g 30.1 kg/m2 172.72 cm 95 % 60 /min 98.2 [degF] 126/80 mm[Hg] [employer] 10:56:30 Date Recorded Body height Body mass index (BMI) Body weight Oxygen saturation Heart rate Body temperature Systolic And Diastolic Provider Name and Address Organization Details Last Updated DateTime 172.72 cm 30.6 kg/m2 48443.0 7 g 94 % 64 /min 98.4 [degF] 100/64 mm[Hg] [employer] 13:26:34 Date Recorded Body height Body mass index (BMI) Body weight Oxygen saturation Heart rate Body temperature Systolic And Diastolic Systolic And Diastolic Provider Name and Address Organization Details Last Updated DateTime 172.72 cm 31.9 kg/m2 94684.9 6 g 95 % 60 /min 98 [degF] 148/84 mm[Hg] 150/88 mm[Hg] [employer] 13:41:28 Social History Question Answer Notes LastModified by Organization Details LastModified Time Tobacco Smoking Status Former Smoker [employer] 02/27/2025 10:53:37 Do You Have An Advance Directive? No Information not available 02/27/2025 Is Your Home Air Conditioned? Yes Information not available 02/27/2025 Are You A Caregiver? No Information not available 06/25/2025 What Type Of Diet Are You Following? DIABETIC Information not available 02/27/2025 What Is The Highest Grade Or Level Of School You Have Completed Or The Highest Degree You Have Received? [id number] Information not available 06/25/2025 Have There Been Any Changes To Your Family Or Social Situation? No Information not available 02/27/2025 When Did You Quit Smoking? 16+yearssincelastci niko 2004 Stop Date Information not available 02/27/2025 [...] Do You Have A Medical Power Of Radio/Tv Technician? No Information not available 02/27/2025 What Was [...] anxious, or unable to sleep at night)? [id number] Information not available 02/27/2025 Family History Relationship [...] room visit since last appointm ent. N Thyroid Problems Y Stroke Y Asthma Y GI Problems Y Depression Y High Cholesterol Y Hepatitis Y Headaches Y Hypertension Y Immunizations Vaccine Type Date Status Note Provider Nam e and Address Organization Details Recorded Time Influenza, split virus, trivalent, preservative 1 completed Not Available [facility] 06/25/2025 13:30:39 Influenza, split virus, trivalent, preservative 3 completed Not Available [facility] 06/25/2025 13:30:39 Influenza, split virus, trivalent, preservative 4 completed Not Available [facility] 06/25/2025 13:30:39 Influenza, split virus, trivalent, preservative 5 completed Not Available [facility] 06/25/2025 13:30:39 Influenza, split virus, quadrivalent, preservative 7 completed Not Available [facility] 06/25/2025 13:30:39 Influenza, split virus, quadrivalent, PF 8 completed Not Available [facility] 06/25/2025 13:30:39 Influenza, high-dose, trivalent, PF 0 completed Not Available [facility] 06/25/2025 13:30:39 Influenza, high-dose, trivalent, PF 0 completed Not Available [facility] 06/25/2025 13:30:39 COVID-19, mRNA, LNP-S, PF, 100 mcg/0.5mL dose or 50 mcg/0.25mL dose 1 completed Not Available [facility] 06/25/2025 13:30:39 COVID-19, mRNA, LNP-S, PF, 100 mcg/0.5mL dose or 50 mcg/0.25mL dose 1 completed Not Available [facility] 06/25/2025 13:30:39 Influenza, high-dose, trivalent, PF 4 completed Not Available [facility] 06/25/2025 13:30:39 Past Encounters Encounter ID Performer Location Encounter Start Date Encounter Closed Date Diagnosis/Indication Diagnosis SNOMED-CT Code Diagnosis ICD10 Code Diagnosis IMO Codes Diagnosis Note [id number] LOUIE Quevedo [facility] [address] [place] [address] 02/27/2025 10:40:23 02/27/2025 11:25:04 Internal hordeolum of right lower eyelid 1238495094 21965 H00.659 1480596 Chronic low back pain 27 8798290 M54.50 G89.29 2655195948 Type 2 leslie betes mellitus 54433934 E11.9 37526436 Migraine 40214114 G43.90 9 95625 Generalize d abdominal pain 193972810 R10.84 144231 Reschedule EGD and colonoscop y [id number] LOUIE Quevedo [facility] [address] [place] [address] 03/13/2025 13:13:39 03/13/2025 13:53:05 Pulmonary congestion 27098594 R09.89 475647 Bronchitis 35790080 J40 80889 [id number] LOUIE Quevedo [facility] [address] [place] [address] 06/25/2025 13:27:51 06/25/2025 14:10:18 Type 2 diabetes mellitus 77897144 E11.9 90096202 Increased frequency of urination 927129285 R35.0 92607 f/iu with urology Nasal obstruction 702153 000 J34.89 40210 Screening for malignant neoplasm of prostate 998305475 Z12.5 506230 Health Concerns Section Related Observation LastModified by Organization Detai ls LastModified Time None Recorded Concern Status LastModified by Organization Details LastModified Time None Recorded Advance Directives Directive N: Payers Insurance Date Sequence Insurance Name Policy Number Policy Luciano Covered Member ID Luciano Member ID Guarantor Name 06/12/2025 3 [facility]ICA[facility] - FFS/TRADITIONA L Gigi [place] [id number] Gigi An 06/08/2025 2 UNSPECIFIED REMIT PAYOR Gigi An 03/07/2025 2 [facility] (MEDICARE REPLACEMENT/AD VANTAGE - HMO) [employer] Gigi [place] [id number] Gigi An 06/25/2025 [place] [facility] [place] Gigi An [id number] Gigi An 06/22/2025 1 [facility] COMMUNITY PLAN - DUAL ELIGIBLE (MEDICARE REPLACEMENT/AD VANTAGE - HMO) KYDSNP Gigi Nolan [id number] Gigi Nolan 06/22/2025 2 [facility] (MEDICAID HMO) Gigi Bearol [id number] Gigi Nolan 06/12/2025 2 [facility] (MEDICAID REPLACEMENT - HMO) KYDSNP Gigi Nolan [id number] Gigi Nolan Notes Date Note Type Note [...] Left side is worse. Was scheduled for [facility] to have EGD and colonoscopy but had what he calls a panic attack and left.Has drainage from the corner of right eye. Had surgery a while ago. Found a retained suture a few days ago. LOUIE Quevedo [address] [place], [address], [employer] 03/02/2025 15:26:09 03/13/2025 text/html ROS as noted in the HPI Patient states that Ubrelvy has helped a lot with his headaches.Lidoderm patches have helped with his low back.He was scheduled for MRI last week but got sick. Still has congestion, cough, wheezing, SOA. LOUIE Quevedo [address] [place], [address], [employer] 03/13/2025 15:52:30 06/25/2025 text/html ROS as noted in the [...] Would like referral to ENT. LOUIE Quevedo [address] [place], [address], [facility] [employer] 06/25/2025 16:06:00
--- OUTSIDE RECORDS SUMMARY | 2025-06-26 04:51 | XMS_ITS | Encounter Summary ---
Author Organization Healthcare Address [address] [id number] Care Team Providers Care End Finder Forming Department Name Role Phone Teo Dominguez MD Primary Care Provider + [phone] See Gann MD Unavailable [phone] Rufina Shrestha DDS Unavailable + Varinder Dey Unavailable Encounter Details Date Type Department Care Team (Late st Contact Info) Description 04/17/2024 Orders Only External Location [address] [place] [address] Mehul Calderon MD [address] [address] Social History Tobacco Use Types [...] documented as of this encounter Care Teams End Finder Forming Department Relationship Specialty Start Date End Date Teo Dominguez MD [address] [place] [address] PCP - General 11/08/20 See Gann MD [address] [place] [address] Surgeon Neurosurgery 01/07/21 Rufina Shrestha DDS [address] [place] [address] Dentist Dentist 08/19/22 Varinder Dey Dentist 08/19/22 documented as of this encounter
--- OUTSIDE RECORDS SUMMARY | 2025-06-26 04:51 | XMS_ITS | Clinical Summary ---
Author Organization [facility] Address [address] [place] [address] Care Team Providers Care Fire Prevention Officer Name Role Phone Teo Dominguez MD Primary Care Provider + [phone] See Gann MD Unavailable [phone] Rufina Shrestha DDS Unavailable + Varinder Dey Unavailable Allergies Active Allergy Reactions Criticality Noted Date Comments Hydromorphone Anaphylaxis High 12/16/2021 Latex Unknown - Patient st ates they do not know rxn details Low 03/17/2017 Penicillins Rash Low 05/07/2006 Sulfa Drugs Unknown - Patient st ates they do not know rxn details Low 08/08/2015 Medications levothyroxine (Synthroid, Levoxyl) 75 MCG tablet 1 tablet (75 mcg) 1 (one) time each day. 08/08/19 16 Active metFORMIN (Glucophage) 500 MG tablet 1 tablet (500 mg) 1 (one) time each day with breakfast. 08/08/19 16 Active Blood Glucose Monitoring Suppl (Accu-Chek Kiki Plus) w/Device kit 01/23/20 20 Active Accu-Chek Kiki Plus test strip 01/23/20 20 Active Accu-Chek Softclix Lancets lancets 01/23/20 20 Active losartan (Cozaar) 50 MG tablet Take 1 tablet (50 mg) by mouth 1 (one) time each day. 10/23/19 21 Active ondansetron (Zofran) 4 MG tablet 1 tablet (4 mg) every 8 (eight) hours if needed. 08/14/19 21 Active sildenafil (Revatio) 20 MG tablet Take 1 tablet (20 mg) by mouth if needed. Active atorvastatin (Lipitor) 40 MG tablet 1 tablet (40 mg) 1 (one) time each day. 10/23/19 22 Active fluticasone (Flonase) 50 MCG/ACT nasal spray if needed. 10/28/19 22 Active LORazepam (Ativan) 0.5 MG tablet 1 tablet (0.5 mg) 2 (two) times a day if needed. 11/29/19 22 Active metoprolol succinate XL (Toprol-XL) 25 MG 24 hr tablet 1 tablet (25 mg) 1 (one) time each day. 10/28/19 22 Active hydroCHLOROthiazi de (Microzide) 12.5 MG capsule 1 capsule (12.5 mg) 1 (one) time each day in the morning. 09/17/19 22 Active alfuzosin (Uroxatral) 10 MG 24 hr tablet 1 tablet (10 mg) 1 (one) time each day. 11/21/19 22 Active methocarbamol (Robaxin) 500 MG tablet Take [...] Active pantoprazole (Protonix) 40 MG EC tablet 02/01/20 22 Active cetirizine (ZyrTEC) 10 MG tablet .COMPLEX 12/17/19 24 Active neomycin-polymyxi n-dexamethamethas one (Polydex) 3.5-92958-1.1 ointment ophthalmic ointment 03/18/20 23 Active ondansetron ODT (Zofran-ODT) 4 MG disintegrating tablet 11/04/19 24 Active sucralfate (Carafate) 1 GM/10ML suspension 02/09/20 24 Active lidocaine (Lidoderm) 5 % patch Apply 1 patch topically daily. Remove & discard patch within 12 hours or as directed by MD. Active omeprazole (PriLOSEC) [address] capsule Take 1 capsule by mouth daily. 05/11/20 Active triazolam (Halcion) 0.25 MG tablet Take 1 tablet by oral route as needed for 1 day, for 30 minutes before MRI. 05/03/20 Active albuterol 108 (90 Base) MCG/ACT inhaler Inhale 2 puffs every 4 hours as needed. Active ibuprofen 800 MG tablet every 8 hours as needed. 05/15/20 Active ofloxacin (Ocuflox) 0.3 % ophthalmic solution INSTILL 1 DROP INTO AFFECTED EYE(S) BY OPHTHALMIC ROUTE 4 TIMES PER DAY 02/28/20 Active Ubrelvy 100 MG tablet Take 1 tablet by mouth 1 time as needed. Active omeprazole (PriLOSEC) [address] capsule 1 capsule (20 mg) 1 (one) time each day. 11/06/192024 Discontinued Active Problems Problem Noted Date Diagnosed Date [...] Encounters Date Type Department Care Team Description 06/18/2025 Orders Only [facility] [address] [place] [address] Shayne Hsu MD Cervicogenic headache (Primary Dx) 06/18/2025 Telephone [facility] [address] [place] [address] Shayne Hsu MD HCN - Patient Message 06/07/2025 8:30 AM EST Office Visit [facility] [address] [place] [address] Shayne Hsu MD CPA (cerebellopontine angle) tumor (CMS/HCC) (Primary Dx) 06/07/2025 Orders Only [facility] [address] [place] [address] Shayne Bach MD Degeneration, intervertebral disc, cervical (Primary Dx) 06/07/2025 Travel 05/17/2025 Telephone [facility] [address] [place] [address] Shayne Hsu MD 05/08/2025 Orders Only External Location [address] [place] [address] Provider, External from Last 3 Months Family History Medical History Relation Name Comments Conversions - Other Other Family h istory unknown Relation Name Status Comments Other Social History Tobacco Use Types Packs/Day Years Used Date Smoking Tobacco: Former Cigarettes 3 22 5 - 2006 Smokeless Tobacco: Never Tobacco Cessation:Counseling [...] Pressure 152/92 06/07/2025 8:08 AM EST Pulse 56 03/19/2025 2:48 PM EDT Temperature 36.3 C (97.4 F) 03/19/2025 2:48 PM EDT Respiratory Rate 16 12/21/2021 11:17 AM EDT Oxygen Saturation 99% 03/19/2025 2:48 PM EDT Inhaled Oxygen Concentration - - Weight 93.1 kg (205 lb 4 oz) 06/07/2025 8:08 AM EST Height 172.7 cm (5' 8 ) 06/07/2025 8:08 AM EST Body Mass Index 31.21 06/07/2025 8:08 AM EST Plan of Treatment Health Maintenance Due Date [...] 1998 Sigmoidoscopy 1998 [facility]-Colorectal Cancer Screening 1998 [facility]-RSV Vaccine: 60+ Years or (1 - Risk 50-74 years 1-dose series) 2003 [facility]-Zoster Vaccines (1 of 2) 2003 [facility]-Abdominal Aortic Aneurysm (AAA) Screening 2018 [facility]-QQUXM-67 Vaccine (3 - Moderna risk series) 04/04/2021 03/07/2021, 02/07/2021 [facility]-Depression Screening 12/01/2022 12/01/2021, 06/0 11/2021 [facility]-Influenza Vaccine (#1) 02/26/202505/02, 04/17/2020, 07/07/2019, Additional history exists [facility]-Obesity Intervention Completed 025, 03/19/2025, 03/01/2024, Additional history exists HPV Vaccines (No Doses Required) Completed [facility]-HIB Vaccines Aged Out No longer e [...] this topic Medical Devices Implanted Type Area Impact Retail Service Merchandiser Device Identifier Shelf Expiration Date Model / Serial / Lot Eye Gold Weight Eye Gold Weight Right: Ear 16mm (Prox) X 20mm (Distal) X 146mm Total Covered, Endurant Ii Aaa Contralateral Limb Stent Graft Implanted:Qty: 1 on 12/22/2021 by Lan Gray MD at [facility] Stent 08/20/2023 [id number] / [id number] / [id number] Description:Ref#[id number] Endurant Iis Bifurcated [id number] - [id number] Implanted:Qty: 1 on 12/19/2021 by Lan Gray MD at [facility] N/A: Aorta Medtronic [id number] 07/08/2023 [id number] / [id number] / [id number] Endurant Ii Contra Limb [id number] - [id number] Implanted:Qty: 1 on 12/19/2021 by Lan Gray MD at [facility] Right: Arterial Medtronic [id number] 07/16/2023 [id number] / [id number] / [id number] Procedures Procedure Name Priority Date/Time Associated Diagnosis Comments MR NEURO OUTSIDE IMAGES 05/08/2025 from Last 3 Months Results * MR NEURO OUTSIDE IMAGES (05/08/2025) Anatomical Region Laterality Modality Magnetic Resonan ce 05/08/2025 us External Provider IMG MRI PROCEDURES Final Resul t from Last 3 Months Insurance [facility] [facility] MEDICAID [facility] MEDICARE Advance Directives * Full Code (Latest Code Status on File) Date Activated Date Inactivated Comments 12/19/2021 11:13 AM 12/21/2021 3:38 PM Question Answer Comments Patient has decision-making capacity? Yes Care Teams Fire Prevention Officer Relationship Specialty Start Date End Date Teo Dominguez MD [address] [place] [address] PCP - General 11/08/20 See Gann MD [address] [place] [address] Surgeon Neurosurgery 01/07/21 Rufina Shrestha DDS [address] [place] [address] Dentist Dentist 08/19/22 Varinder Dey Dentist 08/19/22
--- OUTSIDE RECORDS SUMMARY | 2025-06-26 04:51 | XMS_ITS | Encounter Summary ---
Author Organization [employer] ([place], [place], [place], [place]) Address [address] [place] [address] Care Team Providers Care Sericulturist Name Role Phone Unavailable Primary Care Provider Unavailabl e Encounter Details Date Type Department Care Team (Late st Contact Info) Description 10/31/2020 Transcribed Document [facility] [place] [address] [place] [address] ProviderChristina MD [address] [place] [address] Social History Tobacco Use Types [...]
--- OUTSIDE RECORDS SUMMARY | 2025-06-26 04:51 | XMS_ITS | Encounter Summary ---
Author Organization [employer] ([place], [place], [place], [place]) Address [address] [place] [address] Care Team Providers Care Dental Laboratory Technology Teacher Name Role Phone Unavailable Primary Care Provider Unavailabl e Encounter Details Date Type Department Care Team (Late st Contact Info) Description 10/31/2020 Transcribed Document [facility] [place] [facility] [place] [address] ProviderChristina MD [address] [place] [id number] Social History Tobacco Use Types Packs/Day Years [...] On: 10/31/2020 13:45 EDT by PRIETO MILLS RN-Motion Graphics Designer Final Discharge Planning Discharge Arrangements : Patient [...] : Yes Discharge To Care Management : Home/Residential/Halfway or Self Care -01 PRIETO MILLS RN-Motion Graphics Designer - 10/31/2020 13:45 EDT Final Narrative Note Final Narrative Note : Discharged to home, agreeable. No needs verbalized at this time. PRIETO MILLS RN-Motion Graphics Designer - 10/31/2020 13:45 EDT documented in this encounter Plan of Treatment Not on file documented as of this encounter Visit Diagnoses Not on filedocumented in this encounter
--- OUTSIDE RECORDS SUMMARY | 2025-06-26 04:51 | XMS_ITS | Encounter Summary ---
Author Organization [employer] ([place], [place], [place], [place]) Address [address] [place] [address] Care Team Providers Care Repair Table Operator Name Role Phone Unavailable Primary Care Provider Unavailabl e Encounter Details Date Type Department Care Team (Late st Contact Info) Description 10/31/2020 Transcribed Document [facility] [place] [facility] [place] [address] ProviderChristina MD [address] [place], [place] [id number] Social History Tobacco Use Types Packs/Day Years [...] PHYSICAL THERAPIST NON-EXEMPT - 10/31/2020 16:28 EDT Electronically signed by Fred Bennett Conversion Construction Administrative Assistant Cerner at 10/14/2022 11:30 AM CDT documented in this encounter Plan of Treatment Not on file documented as of this encounter Visit Diagnoses Not on filedocumented in this encounter
--- OUTSIDE RECORDS SUMMARY | 2025-06-26 04:51 | XMS_ITS | Encounter Summary ---
Author Organization [employer] ([place], [place], [place]) Address [address] [place] [address] Care Team Providers Care Classification Case Manager Name Role Phone Unavailable Primary Care Provider Unavailabl e Encounter Details Date Type Department Care Team (Late st Contact Info) Description 10/31/2020 Transcribed Document [facility] [place] [facility] [place] [address] ProviderChristina MD [address] [place] [address] Social History Tobacco Use Types [...] with your condition: Managing pain ??? Take [id number] and prescription medicines only as told by [...] provider. Document Revised: 01/02/2019 Document Reviewed: 01/02/2019 [employer] Patient Education ? 2020 [employer] documented in this encounter Plan of Treatment Not on file documented as of this encounter Visit Diagnoses Not on filedocumented in this encounter
--- OUTSIDE RECORDS SUMMARY | 2025-06-26 04:51 | XMS_ITS | Encounter Summary ---
Author Organization [facility] Address [address] [place] [address] Care Team Providers Care Fertilizer Loader Name Role Phone Teo Dominguez MD Primary Care Provider + [phone] See Gann MD Unavailable [phone] Rufina Shrestha DDS Unavailable + Varinder Dey Unavailable Reason for Referral * Imaging (Routine) - Pending Review Specialty Diagnoses / Procedures Referred By Contac t Referred To Contact Diagnoses Cervicogenic headache Procedures MR Cervical Spine w and wo IV Contrast Shayne Hsu MD [id number] [place] [address] Phone: tel: fax: Referral ID Status Reason Start Date Expiration Date V isits Requested Visits Authorized [id number] Pending Review 06/18/2025 12/18/2026 1 1 Encounter Details Date Type Department Care Team (Late st Contact Info) Description 06/18/2025 Orders Only [facility] [address] [place] [address] Shayne Hsu MD [address] [facility] [address] [place] [address] Cervicogenic headache (Primary Dx) Social History Tobacco Use Types [...] of this encounter Plan of Treatment Scheduled Orders Name Type Priority Associated Diagnoses Orde r Schedule MR Cervical Spine w and wo IV Contrast Imaging Routine Cervicogenic headache Expected: 07/02/2025 (Approximate), Expires: 12/20/2026 documented as of this encounter Visit Diagnoses Diagnosis Cervicogenic headache- Primary Headache documented in this encounter Additional Health Concerns Assessment Noted Time PHQ-9 Depression Total Score: 13 022 12:43 PM EDT A fall risk assessment has been complete d for the patient 06/07/2025 8:19 AM EST A Body Mass Index follow-up plan has been documented for the patient 06/07/2025 12:48 PM EST documented as of this encounter Care Teams Fertilizer Loader Relationship Specialty Start Date End Date Teo Dominguez MD [address] [place] [address] PCP - General 11/08/20 See Gann MD [address] [place] [address] Surgeon Neurosurgery 01/07/21 Rufina Shrestha DDS [address] [place] [address] Dentist Dentist 08/19/22 Varinder Dey Dentist 08/19/22 documented as of this encounter
--- OUTSIDE RECORDS SUMMARY | 2025-06-26 04:51 | XMS_ITS | Encounter Summary ---
Author Organization [employer] ([place], [place], [place], [place]) Address [address] [place] [address] Care Team Providers Care Retirement Manager Name Role Phone Unavailable Primary Care Provider Unavailabl e Encounter Details Date Type Department Care Team (Late st Contact Info) Description 10/30/2020 Transcribed Document [facility] [place] [address] [place] [address] ProviderChristina MD [address] [place] [address] Social History Tobacco Use [...] Health Plan: [employer] PPO Policy Number: [id number] Authorization Number: Insurance 2 Health Plan: Aetna [facility] Policy Number: [id number] Authorization Number: Historical Authorization Comments-Primary : No Authorization Comments Found Nasima Salgado Rn-Utilization Review - 10/30/2020 13:21 EDT documented in this encounter Plan of Treatment Not on file documented as of this encounter Visit Diagnoses Not on filedocumented in this encounter
--- OUTSIDE RECORDS SUMMARY | 2025-06-26 04:51 | XMS_ITS | Encounter Summary ---
Author Organization [facility] Address [address] [place] [address] Care Team Providers Care Television Repairer Name Role Phone Teo Dominguez MD Primary Care Provider [phone] See Gann MD Unavailable [phone] Rufina Shrestha DDS Unavailable + Varinder Dey Unavailable Encounter Details Date Type Department Care Team (Late st Contact Info) Description 12/12/2024 [facility] [address] [place] [address] Veronica Edmond MD Social History Tobacco Use Types Packs/Day Years [...] documented as of this encounter Care Teams Television Repairer Relationship Specialty Start Date End Date Teo Dominguez MD [address] [place] [address] PCP - General 11/08/20 See Gann MD [address] [place] [address] Surgeon Neurosurgery 01/07/21 Rufina Shrestha DDS [address] [place] [address] Dentist Dentist 08/19/22 Varinder Dey Dentist 08/19/22 documented as of this encounter
--- OUTSIDE RECORDS SUMMARY | 2025-06-26 04:51 | XMS_ITS | Encounter Summary ---
Author Organization [facility] Address [address] [place] [address] Care Team Providers Care Aerospace Quality Engineer Name Role Phone Teo Dominguez MD Primary Care Provider [phone] See Gann MD Unavailable [phone] Rufina Shrestha DDS Unavailable + Varinder Dey Unavailable Reason for Referral * Consultation (Routine) - Closed Specialty Diagnoses / Procedures Referred By Contac chelsy Referred To Contact Neurosurgery Diagnoses Abnormal MRI, spine Mehul Winston APRN [id number] fax: Referral ID Status Reason Start Date Expiration Date V isits Requested Visits Authorized [id number] Closed Specialty Services Required 12/05/2020 06/03/2021 1 1 Encounter Details Date Type Department Care Team (Late st Contact Info) Description 12/05/2020 [facility] [address] [place] [address] Mehul Winston APRN [id number] Abnormal MRI, spine (Primary Dx) Social [...] Primary documented in this encounter Care Teams Aerospace Quality Engineer Relationship Specialty Start Date End Date Teo Dominguez MD [address] [place], [place] [id number] PCP - General 11/08/20 See Gann MD [address] [facility] [address] [place] [address] Surgeon Neurosurgery 01/07/21 Rufina Shrestha DDS [address] [facility] [address] [place] [address] Dentist Dentist 08/19/22 Varinder Dey Dentist 08/19/22 documented as of this encounter
[2025-06-26 04:56] LABS: Hematocrit 40.6 % (42.0-52.0); Hemoglobin 13.3 g/dL (14.1-18.0); Immature Granulocytes % 0.1 %; Mean Corpuscular HGB Conc 32.8 g/dL (31.8-35.4); Mean Corpuscular Hemoglobin 30.5 pg (27.0-31.2); Mean Corpuscular Volume 93.1 fl (80-94); Nucleated Red Blood Cells % 0 %; Platelet Count 199 K/mm3 (142-424); Red Blood Count 4.36 M/mm3 (4.60-6.20); Red Cell Distribution Width-SD 44.2 fL; White Blood Count 8.8 K/mm3 (4.8-10.8)
[2025-06-26 04:57] LABS: VBG HCO3 22.4 mmol/L (23-30); VBG PCO2 41.5 mmol/L (35-51); VBG PH 7.35 mmol/L (7.31-7.41); VBG PO2 60.2 mmol/L (28-40)
[2025-06-26] MEDS: ACETAMINOPHEN 500MG TAB 1000 MG PO (04:57)
[2025-06-26 04:58] LABS: Lactate Venous 2.8 mmol/L (0.4-2.0)
[2025-06-26] MEDS: BELLADONNA ALKALOIDS 60 ML ML PO (04:58)
--- NOTE | 2025-06-26 04:59 | PC.NURSE ---
critical called from RT. MD Malcolm notified at [phone]
[2025-06-26 05:02] LABS: Alanine Aminotransferase 18 U/L (12-78); Albumin Level 4.4 g/dl (3.5-5.0); Albumin/Globulin Ratio 1.4 (1.1-1.8); Alkaline Phosphatase 110 U/L (38-126); Anion Gap 12.0 mEq/L (5-15); Aspartate Amino Transferase 24 U/L (17-59); Bilirubin,Total 0.7 mg/dl (0.2-1.3); Blood Urea Nitrogen 18 mg/dl (9-20); Calcium 9.2 mg/dl (8.4-10.2); Carbon Dioxide 28 mmol/L (22.0-30.0); Chloride 106 mmol/L (98-107); Creatinine Clearance Estimated 65 mL/min (50-200); Creatinine,Serum 1.10 mg/dl (0.66-1.25); Estimated Glomerular Filt Rate 66 ml/min (>60); GFR (African American) 80 ML/MIN (>60); Globulin 3.1 g/dL (1.3-3.2); Glucose 134 mg/dl (74-100); Potassium 4.0 mmoL/L (3.5-5.1); Sodium 142 mmol/L (136-145); Total Protein,Serum 7.5 g/dl (6.3-8.2)
[2025-06-26 05:06] LABS: D-Dimer 2.42 ug/mL (0.0-0.5)
[2025-06-26 05:09] LABS: Lipase 582 U/L (23-300)
--- NOTE | 2025-06-26 05:12 | ED_ITS ---
Discharge Plan Disposition Chief Complaint: Chest Pain Prescriptions Prescriptions: No Action aspirin 81 mg tablet,delayed release (DR/EC) 81 mg PO DAILY Qty: 60 3RF alfuzosin 10 mg tablet extended release 24 hr 10 mg PO DAILY ipratropium-albuterol 0.5 mg-3 mg(2.5 mg base)/3 mL solution for nebulization 3 ml inhalation Q6H PRN (Reason: shortness of breath or wheezing) Qty: 90 1RF polyethylene glycol 3350 [Miralax] 17 gram/dose powder 17 g PO BID Qty: 1020 11RF Citrucel Sugar Free Powder 1 tbsp PO BID Qty: 1191 11RF Rx Instructions: Mix with polyethylene glycol in 8 oz fluid twice daily nitroglycerin 0.4 mg tablet, sublingual 0.4 mg SL Q5M PRN (Reason: chest pain) Qty: 25 0RF Rx Instructions: do not exceed 3 doses per episode fluticasone propionate [Flonase Allergy Relief] 50 mcg/actuation spray,suspension 1 spray INTRANASAL DAILY Qty: 16 2RF Rx Instructions: administer into each nostril ondansetron HCl 4 mg tablet 4 mg PO Q8H Qty: 60 1RF sildenafil (pulm.hypertension) 20 mg tablet See Rx Instructions .ROUTE .COMPLEX Qty: 30 4RF Dose Instruction: TAKE 1 TABLET DAILY NEEDED FOR SEXUAL ACTIVITY; ADMINISTER DOSES AT LEAST 4-6 HOURS APART Rx Instructions: TAKE 1 TABLET DAILY NEEDED FOR SEXUAL ACTIVITY; ADMINISTER DOSES AT LEAST 4-6 HOURS APART (DME) Accu-Chek Guide test strips Strip See Rx Instructions .ROUTE .COMPLEX Qty: 50 3RF Dose Instruction: TEST TWICE DAILY Rx Instructions: TEST TWICE DAILY methocarbamol 500 mg tablet See Rx Instructions .ROUTE .COMPLEX Qty: 30 0RF Dose Instruction: TAKE 1 TABLET BY MOUTH THREE TIMES DAILY NEEDED FOR MUSCLE RELAXER Rx Instructions: TAKE 1 TABLET BY MOUTH THREE TIMES DAILY NEEDED FOR MUSCLE RELAXER albuterol sulfate 90 mcg/actuation HFA aerosol inhaler 2 puff INHALATION Q4H Qty: 8.5 3RF hydrochlorothiazide 12.5 mg capsule See Rx Instructions .ROUTE .COMPLEX Qty: 90 3RF Dose Instruction: TAKE 1 CAPSULE BY MOUTH ONCE DAILY FOR FLUID Rx Instructions: TAKE 1 CAPSULE BY MOUTH ONCE DAILY FOR FLUID cetirizine 10 mg tablet See Rx Instructions .ROUTE .COMPLEX Qty: 90 2RF Dose Instruction: TAKE 1 TABLET BY MOUTH ONCE DAILY NEEDED FOR ALLERGY SYMPTOMS Rx Instructions: TAKE 1 TABLET BY MOUTH ONCE DAILY NEEDED FOR ALLERGY SYMPTOMS metformin 500 mg tablet See Rx Instructions .ROUTE .COMPLEX Qty: 90 3RF Dose Instruction: TAKE 1 TABLET BY MOUTH ONCE DAILY FOR SUGAR Rx Instructions: TAKE 1 TABLET BY MOUTH ONCE DAILY FOR SUGAR losartan 50 mg tablet See Rx Instructions .ROUTE .COMPLEX Qty: 30 11RF Dose Instruction: TAKE 1 TABLET BY MOUTH ONCE DAILY Rx Instructions: TAKE 1 TABLET BY MOUTH ONCE DAILY metoprolol succinate 25 mg tablet extended release 24 hr See Rx Instructions .ROUTE .COMPLEX Qty: 30 11RF Dose Instruction: TAKE 1 TABLET BY MOUTH ONCE DAILY Rx Instructions: TAKE 1 TABLET BY MOUTH ONCE DAILY omeprazole 40 mg capsule,delayed release(DR/EC) See Rx Instructions .ROUTE .COMPLEX Qty: 90 2RF Dose Instruction: TAKE 1 CAPSULE BY MOUTH ONCE DAILY FIRST THING IN MORNING BEFORE EATING ANY FOOD. Rx Instructions: TAKE 1 CAPSULE BY MOUTH ONCE DAILY FIRST THING IN MORNING BEFORE EATING ANY FOOD. levothyroxine 75 mcg tablet See Rx Instructions .ROUTE .COMPLEX Qty: 90 1RF Dose Instruction: TAKE 1 TABLET BY MOUTH ONCE DAILY Rx Instructions: TAKE 1 TABLET BY MOUTH ONCE DAILY atorvastatin 40 mg tablet See Rx Instructions .ROUTE .COMPLEX Qty: 90 1RF Rx Instructions: TAKE ONE TABLET BY MOUTH EVERY NIGHT AT BEDTIME FOR CHOLESTEROL ranolazine 500 mg tablet extended release 12 hr See Rx Instructions .ROUTE .COMPLEX Qty: 180 3RF Dose Instruction: TAKE 1 TABLET BY MOUTH TWICE DAILY Rx Instructions: TAKE 1 TABLET BY MOUTH TWICE DAILY Referrals Follow up/Referrals: Disha Pineda PA [Primary Care Provider, Medical] - See instructions Clinical Impressions Clinical Impression: Chest pain, Head ache, Abdominal pain Print Language Print Language: [place] Discharge ED Provider: Bryan Malcolm General Adult HPI <Bryan Malcolm MD - Last Filed: 06/26/25 06:51> General Chief complaint: Chest Pain Stated complaint: Chest Pain Time Seen by Provider: 06/26/25 04:45 Mode of Arrival: EMS Source of Information: Patient and EMS Description of Symptoms (Recalled from ER Triage Doc. by RN): Pt presents to the ED with mutiple complaints. Pt c/o CP accompanied by SOA, and nausea X 2 hrs. Pt also c/o SANTOYO X 2 hrs. Pt also c/o L sided abd pain and swelling X weeks. History of Present Illness HPI narrative: 69 male past medical history of prior tumor status post resection, chronic headache, COPD, prior [place] prior, [place] syndrome, hypertension, diabetes presents for multiple complaints. His primary complaint is chest pain, left- sided, central has been going on for the last couple hours. It has been bothering him on and off for weeks. He also reports headache, posterior, severe. He has chronic headaches. This headache has been bothering him for a few hours as well. He also reports left-sided abdominal pain and swelling for weeks. Has not had a bowel movement as consistently as normal. He has been seen for the symptoms and has had multiple MRIs recently and has seen a specialist in [place] who reported that it does not appear to be anything new. He reports that he has a aneurysm in his aorta that he has had repaired before but he also has a new one behind his heart . Related Data Home Medications ?Medication ?Instructions ?Recorded ?Confirmed alfuzosin 10 mg tablet,extended 10 mg PO DAILY Prostat e/urinary 02/19/23 04/11/25 release 24 hr reten. Previous Rx's ?Medication ?Instructions ?Recorded aspirin 81 mg tablet,delayed 81 mg PO DAILY Heart heal th #60 06/23/21 release tabs nitroglycerin 0.4 mg sublingual 0.4 mg sublingual Q5M PRN chest 07/01/23 tablet pain #25 tabs sildenafil (pulm.hypertension) 20 See Rx Instructions .Route 10/06/23 mg tablet .COMPLEX #30 tabs blood sugar diagnostic (Accu-Chek #50 ea 10/25/23 Guide test strips) methocarbamol 500 mg tablet See Rx Instructions .Route 11/12/23 .COMPLEX #30 tabs fluticasone propionate 50 1 spray intranasal DAILY . # 16 02/15/24 mcg/actuation nasal grams spray,suspension (Flonase Allergy Relief) albuterol sulfate 90 mcg/actuation 2 puff inhalation Q 4H Asthma #8.5 03/20/24 aerosol inhaler grams ipratropium 0.5 mg-albuterol 3 mg 3 ml inhalation Q6H PRN shortness 03/21/24 (2.5 mg base)/3 mL nebulization of breath or wheezing #90 mL soln hydrochlorothiazide 12.5 mg capsule See Rx Instruction s .Route 04/10/24 .COMPLEX #90 caps ondansetron HCl 4 mg tablet 4 mg PO Q8H #60 tabs 06/06 cetirizine 10 mg tablet See Rx Instructions .Route 0 10/20/24 .COMPLEX #90 tabs methylcellulose (laxative) 1 tbsp PO BID #1,191 grams 11/09/24 (Citrucel Sugar Free oral powder) polyethylene glycol 3350 17 17 g PO BID #1,020 grams 0 11/09/24 gram/dose oral powder (Miralax) metformin 500 mg tablet See Rx Instructions .Route 0 11/14/24 .COMPLEX #90 tabs losartan 50 mg tablet See Rx Instructions .Route 0 11/29/24 .COMPLEX #30 tabs metoprolol succinate 25 mg See Rx Instructions .Route 11/29/24 tablet,extended release 24 hr .COMPLEX #30 tabs omeprazole 40 mg capsule,delayed See Rx Instructions . Route 12/18/24 release .COMPLEX #90 caps levothyroxine 75 mcg tablet See Rx Instructions .Route 02/01/25 .COMPLEX #90 tabs atorvastatin 40 mg tablet See Rx Instructions .Route 1 07/23/24 .COMPLEX Cholesterol #90 tabs ranolazine 500 mg tablet,extended See Rx Instructions .Route 06/13/25 release,12 hr .COMPLEX #180 tabs Allergies Allergy/AdvReac Type Severity Reaction Status Date / Time hydromorphone (From Dilaudid) Allergy Severe Anaphylaxis Verified 06/26/25 05:02 latex (LATEX) Allergy Unknown Unknown Verified 06/26/25 05:02 allergy reaction Penicillins (PENICILLINS) Allergy Unknown Unknown Verified 06/26/25 05:02 allergy reaction Sulfa (Sulfonamide Allergy Unknown Unknown Verified 06/26/25 05:02 Antibiotics) (SULFA allergy (SULFONAMIDE ANTIBIOTICS)) reaction [facility] <Bryan Malcolm MD - Last Filed: 06/26/25 06:51> [facility] Disclaimer: The information contained in this section may have been updated after the patient was seen, as this information can be updated by other users. 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 TSH has not been drawn for some time we will check that today. Ingrown right big toenail Ingrown left big toenail Foot pain Wrist pain Rib pain on left side Left radial head fracture Diabetes mellitus Hypertensive heart disease Hyperlipidemia Gigi has not had a lipid panel drawn in some time. We will draw 1 today and he will continue his atorvastatin for now. Abdominal aortic aneurysm Aneurysm of ascending aorta Surgical History Hx of eye surgery gold weight to help close eyelid Hx of brain surgery tumor S/P AAA repair NOVEMBER 2021. Stented coronary artery Family History Other Family history of cancer Family history of diabetes mellitus type II Family history of myocardial infarction Social History Smoking Status: Former smoker tobacco type: cigarettes packs per day: 4 how long ago did patient quit smokin years second hand exposure: Yes alcohol intake: former counseling provided: none substance use type: marijuana current occupational status: retired Travel in the last 8 weeks?: None household members: other housing: house marital status: legally current occupational exposures/hazards: No caffeine: Yes physical activity: none do you feel safe at home: Yes victim of physical abuse: No victim of emotional abuse: No victim of sexual abuse: No Have you lived/traveled outside US in past 30 days?: No Contact w/someone who lives/traveled outside US past 30 days?: No Exposure to someone with infectious disease in past 14 days?: No Do you have a fever (greater than 100.4 F or 38 C)?: No Have you tested positive for COVID-19?: No Exposed to someone with COVID-19 in past 14 days?: No Do you have a sore throat?: No Do you have a cough?: No Do you have any weakness?: No Do you have any diarrhea?: No Are you experiencing any unusual bleeding?: No Do you have any muscle aches/pain?: No Do you have any abdominal pain?: No Are you experiencing loss of taste or smell?: No Other Medical History Have you received the Flu Vaccine for this season: No Have you received the Pneumonia Vaccine: No <Bryan Malcolm MD - Last Filed: 06/26/25 06:51> ROS Obtained: Yes All systems reviewed & no additional complaints except as documented Physical Exam <Bryan Malcolm MD - Last Filed: 06/26/25 06:51> General General appearance: alert and anxious Head Head exam: atraumatic, normocephalic and other (Right facial paralysis, chronic per patient) Eye Eye exam: Present normal appearance, PERRL and EOMI ENT ENT exam: Present normal oropharynx and normal external ear exam Neck Neck exam: Present normal inspection and full ROM Chest Chest inspection: Present normal inspection and symmetric chest wall rise; Absent tenderness Respiratory Respiratory exam: Present normal lung sounds bilaterally; Absent respiratory distress Cardiovascular Cardiovascular exam: Present regular rate and normal rhythm Abdominal Exam Abdominal exam: Present soft; Absent distention, tenderness or guarding Extremities Exam Extremities exam: Present normal inspection; Absent edema or joint swelling Back Exam Back exam: Present normal inspection; Absent tenderness Neurological Exam Neurological exam: Present alert and oriented X3; Absent motor sensory deficit Psychiatric Psychiatric exam: Present normal affect and normal mood Skin Skin exam: Present warm, dry and normal color Lymphatic Lymphatic Findings: no adenopathy Medical Decision Making <Bryan Malcolm MD - Last Filed: 06/26/25 06:51> Medical Records Medical records reviewed: Yes I reviewed the patient's medical records. Screening: Per USPSTF and CDC recommendations, given the prevalence of disease in our region, it is our hospital?s policy to screen for HIV and viral Hepatitis for all patients aged 18 and over and those with ongoing risk factors. Luis Felipe Inquiry Pt receiving controlled substance: No Luis Felipe was queried for this patient: No Vital Signs: 06/26/25 04:52 06/26/25 05:02 06/26/25 05:31 Temperature 97.9 F Temperature Source Oral Pulse Rate 63 51 L Pulse Rate [Left] 62 Respiratory Rate 16 18 12 Blood Pressure 134/68 110/68 Blood Pressure [Right Arm] 165/91 H Blood Pressure Mean 90 82 Blood Pressure Mean [Right Arm] 115 Blood Pressure Source [Right Arm] Automatic Cuff 02 Sat by Pulse Oximetry 98 96 93 L Oxygen Delivery Method Room Air 06/26/25 06:01 06/26/25 06:31 06/26/25 07:00 Temperature Temperature Source Pulse Rate 58 L 54 L Pulse Rate [Left] Respiratory Rate 18 10 L 10 L Blood Pressure 141/80 H 115/73 146/91 H Blood Pressure [Right Arm] Blood Pressure Mean 100 87 Blood Pressure Mean [Right Arm] Blood Pressure Source [Right Arm] 02 Sat by Pulse Oximetry 94 L 95 Oxygen Delivery Method 06/26/25 07:30 06/26/25 08:00 06/26/25 08:31 Temperature Temperature Source Pulse Rate 68 Pulse Rate [Left] Respiratory Rate 12 10 L 13 Blood Pressure 151/86 H 128/80 147/89 H Blood Pressure [Right Arm] Blood Pressure Mean Blood Pressure Mean [Right Arm] Blood Pressure Source [Right Arm] 02 Sat by Pulse Oximetry 100 97 95 Oxygen Delivery Method Lab Data Lab results reviewed: Yes I reviewed the patient's lab results. Lab Results 06/26/25 04:29: WBC 8.8, RBC 4.36 L, Hgb 13.3 L, Hct 40.6 L, MCV 93.1, MCH 30.5, MCHC 32.8, RDW 12.9, Plt Count 199, MPV 10.0, Neut % (Auto) 47.0, Lymph % (Auto) 41.5, King % (Auto) 7.1, Eos % (Auto) 3.2, Baso % (Auto) 1.1, Neut # (Auto) 4.1, Lymph # (Auto) 3.6, King # (Auto) 0.6, Eos # (Auto) 0.3, Baso # (Auto) 0.1, D- Dimer 2.42 H, Sodium 142, Potassium 4.0, Chloride 106, Carbon Dioxide 28, Anion Gap 12.0, BUN 18, Creatinine 1.10, Estimated Creat Clear 65, Estimated GFR 66, Est GFR ( Amer) 80, Glucose 134 H, Calcium 9.2, Total Bilirubin 0.7, AST 24, ALT 18, Alkaline Phosphatase 110, Troponin I < 0.01, Total Protein 7.5, Albumin 4.4, Globulin 3.1, Albumin/Globulin Ratio 1.4, Lipase 582 H 06/26/25 04:44: VBG pH 7.35, VBG pCO2 41.5, VBG pO2 60.2 H, VBG HCO3 22.4 L, VBG Total CO2 23.7, VBG O2 Saturation 89.3 H, VBG Base Excess -3.1 L, VBG Lactic Acid 2.8 H 06/26/25 05:24: SARS-CoV-2 (PCR) Not detected, Influenza A Untype (PCR) Not detected, Influenza Type B (PCR) Not detected 06/26/25 07:22: Troponin I < 0.01 06/26/25 04:29 06/26/25 04:29 Orders (Tests/Meds): ED MEDICATIONS Discontinued Medications Generic Name Dose Route Start Last Admin Trade Name Freq PRN Reason Stop Dose Admin Acetaminophen 1,000 mg 06/26/25 04:49 06/26/25 04:57 Acetaminophen 500mg Tab PO 06/26/25 04:50 1,000 mg ONCE ONE Administration Belladonna Alkaloids 60 ml 06/26/25 04:49 06/26/25 04:58 Belladonna Alkaloids 60 Ml Ml PO 06/26/25 04:50 60 ml ONCE ONE Administration Diphenhydramine HCl 25 mg 06/26/25 09:16 Diphenhydramine 50mg/Ml Vial IV 06/26/25 09:17 ONCE ONE Iopamidol 160 ml 06/26/25 06:09 06/26/25 06:10 Iopamidol-370 (76%);100ml Bottle IV 06/26/25 06:10 160 ml ONCE ONE Administration Ketorolac Tromethamine 30 mg 06/26/25 09:16 Ketorolac 30mg/Ml Vial IV 06/26/25 09:17 ONCE ONE Nitroglycerin 1 gm 06/26/25 08:54 06/26/25 09:05 Nitroglycerin 1 Gm Ointment TD 06/26/25 08:55 1 gm ONCE ONE Administration Prochlorperazine Edisylate 2.5 mg 06/26/25 09:16 Prochlorperazine 10mg/2ml Vial IV 06/26/25 09:17 ONCE ONE Sodium Chloride 100 ml 06/26/25 06:09 06/26/25 06:10 0.9 % Sodium Chloride 50 Ml Vial IV 06/26/25 06:10 100 ml ONCE ONE Administration Sodium Chloride 10 ml 06/26/25 06:09 06/26/25 06:10 Sodium Chloride 0.9% 10ml Syr (Rad Only) IV 06/26/25 06:10 10 ml ONCE ONE Administration ORDERS Category Date Time Status CT angio abdomen pelvis Stat Cat Scan 06/26/25 05:[address] angio head Stat Cat Scan 06/26/25 05:[address] angio neck Stat Cat Scan 06/26/25 05:[address] head/brain wo con Stat Cat Scan 06/26/25 05:23 Completed CTA Chest [CT angio chest - dissection] Stat Cat Scan 06/26/25 05:23 Completed CBC w/Auto Diff [Complete Blood Count Auto Diff] Stat Lab 06/26/25 04:29 Completed CMP [Comprehensive Metabolic Panel] Stat Lab 06/26/25 04:29 Completed D-Dimer Stat Lab 06/26/25 04:29 Completed Lactic Acid Follow Up (RFLX 1) Stat Lab 06/26/25 09:13 Received Lipase Stat Lab 06/26/25 04:29 Completed Rapid PCR Covid and Flu A/B Stat Lab 06/26/25 05:24 Completed Troponin I Q3H Lab 06/26/25 04:29 Completed Troponin I Q3H Lab 06/26/25 07:22 Completed VBG [Venous Blood Gas] Stat RT 06/26/25 04:44 Completed ECG Data Tracing #1: I reviewed this ECG and interpreted as documented below: Sinus bradycardia, left axis deviation, no significant ST elevation ECG initial impression date: 06/26/25 ECG initial impression time: 04:45 HEART Score History (anamnesis): Moderately suspicious ECG: Normal Age: >65 years Risk factors: Atherosclerosis history Troponin: </= normal limit HEART Score: 5 Medical Decision Narrative: 69-year-old male with extensive past medical history including brain tumor s/p resection, aortic pathology, hypertension, chronic headaches, presents for multiple complaints including chest pain, headaches, abdominal pain. History was obtained via interactive discussion with patient, family, chart review. On arrival, patient is [afebrile, hemodynamically stable, satting appropriately, alert, oriented x4, GCS 15], moving all extremities spontaneously. Full physical exam performed and significant for right sided facial paralysis (normal per patient), clear lungs bilaterally, mild abdominal distention without significant tenderness to palpation Differential includes but is not limited to intracranial hemorrhage, aneurysm, tumor, acute aortic pathology, ACS, PE, constipation. Patient was given aspirin and nitro x 2 by EMS prior to arrival. He was given Tylenol and GI cocktail in ED for symptomatic management and correction of underlying abnormalities. Workup initiated including broad-spectrum labs, CT scans of the head neck chest abdomen pelvis. On re-evaluation, patient reports significant improvement. Laboratory workup independently interpreted by me and significant for positive D-dimer, no significant leukocytosis, unremarkable VBG, negative initial troponin, lipase mildly elevated. Imaging independently interpreted by me and significant for no obvious intracranial hemorrhage, no obvious aortic dissection or PE. See radiology read for full review of final results. At this time care was handed off to oncoming physician pending formal radiology reads as well as repeat cardiac enzymes. <King Shetty MD - Last Filed: 06/26/25 09:31> Vital Signs: 06/26/25 04:52 06/26/25 05:02 06/26/25 05:31 Temperature 97.9 F Temperature Source Oral Pulse Rate 63 51 L Pulse Rate [Left] 62 Respiratory Rate 16 18 12 Blood Pressure 134/68 110/68 Blood Pressure [Right Arm] 165/91 H Blood Pressure Mean 90 82 Blood Pressure Mean [Right Arm] 115 Blood Pressure Source [Right Arm] Automatic Cuff 02 Sat by Pulse Oximetry 98 96 93 L Oxygen Delivery Method Room Air 06/26/25 06:01 06/26/25 06:31 06/26/25 07:00 Temperature Temperature Source Pulse Rate 58 L 54 L Pulse Rate [Left] Respiratory Rate 18 10 L 10 L Blood Pressure 141/80 H 115/73 146/91 H Blood Pressure [Right Arm] Blood Pressure Mean 100 87 Blood Pressure Mean [Right Arm] Blood Pressure Source [Right Arm] 02 Sat by Pulse Oximetry 94 L 95 Oxygen Delivery Method 06/26/25 07:30 06/26/25 08:00 06/26/25 08:31 Temperature Temperature Source Pulse Rate 68 Pulse Rate [Left] Respiratory Rate 12 10 L 13 Blood Pressure 151/86 H 128/80 147/89 H Blood Pressure [Right Arm] Blood Pressure Mean Blood Pressure Mean [Right Arm] Blood Pressure Source [Right Arm] 02 Sat by Pulse Oximetry 100 97 95 Oxygen Delivery Method Lab Data Lab Results 06/26/25 04:29: WBC 8.8, RBC 4.36 L, Hgb 13.3 L, Hct 40.6 L, MCV 93.1, MCH 30.5, MCHC 32.8, RDW 12.9, Plt Count 199, MPV 10.0, Neut % (Auto) 47.0, Lymph % (Auto) 41.5, King % (Auto) 7.1, Eos % (Auto) 3.2, Baso % (Auto) 1.1, Neut # (Auto) 4.1, Lymph # (Auto) 3.6, King # (Auto) 0.6, Eos # (Auto) 0.3, Baso # (Auto) 0.1, D- Dimer 2.42 H, Sodium 142, Potassium 4.0, Chloride 106, Carbon Dioxide 28, Anion Gap 12.0, BUN 18, Creatinine 1.10, Estimated Creat Clear 65, Estimated GFR 66, Est GFR ( Amer) 80, Glucose 134 H, Calcium 9.2, Total Bilirubin 0.7, AST 24, ALT 18, Alkaline Phosphatase 110, Troponin I < 0.01, Total Protein 7.5, Albumin 4.4, Globulin 3.1, Albumin/Globulin Ratio 1.4, Lipase 582 H 06/26/25 04:44: VBG pH 7.35, VBG pCO2 41.5, VBG pO2 60.2 H, VBG HCO3 22.4 L, VBG Total CO2 23.7, VBG O2 Saturation 89.3 H, VBG Base Excess -3.1 L, VBG Lactic Acid 2.8 H 06/26/25 05:24: SARS-CoV-2 (PCR) Not detected, Influenza A Untype (PCR) Not detected, Influenza Type B (PCR) Not detected 06/26/25 07:22: Troponin I < 0.01 Orders (Tests/Meds): ED MEDICATIONS Discontinued Medications Generic Name Dose Route Start Last Admin Trade Name Freq PRN Reason Stop Dose Admin Acetaminophen 1,000 mg 06/26/25 04:49 06/26/25 04:57 Acetaminophen 500mg Tab PO 06/26/25 04:50 1,000 mg ONCE ONE Administration Belladonna Alkaloids 60 ml 06/26/25 04:49 06/26/25 04:58 Belladonna Alkaloids 60 Ml Ml PO 06/26/25 04:50 60 ml ONCE ONE Administration Diphenhydramine HCl 25 mg 06/26/25 09:16 Diphenhydramine 50mg/Ml Vial IV 06/26/25 09:17 ONCE ONE Iopamidol 160 ml 06/26/25 06:09 06/26/25 06:10 Iopamidol-370 (76%);100ml Bottle IV 06/26/25 06:10 160 ml ONCE ONE Administration Ketorolac Tromethamine 30 mg 06/26/25 09:16 Ketorolac 30mg/Ml Vial IV 06/26/25 09:17 ONCE ONE Nitroglycerin 1 gm 06/26/25 08:54 06/26/25 09:05 Nitroglycerin 1 Gm Ointment TD 06/26/25 08:55 1 gm ONCE ONE Administration Prochlorperazine Edisylate 2.5 mg 06/26/25 09:16 Prochlorperazine 10mg/2ml Vial IV 06/26/25 09:17 ONCE ONE Sodium Chloride 100 ml 06/26/25 06:09 06/26/25 06:10 0.9 % Sodium Chloride 50 Ml Vial IV 06/26/25 06:10 100 ml ONCE ONE Administration Sodium Chloride 10 ml 06/26/25 06:09 06/26/25 06:10 Sodium Chloride 0.9% 10ml Syr (Rad Only) IV 06/26/25 06:10 10 ml ONCE ONE Administration ORDERS Category Date Time Status CT angio abdomen pelvis Stat Cat Scan 06/26/25 05:[address] angio head Stat Cat Scan 06/26/25 05:[address] angio neck Stat Cat Scan 06/26/25 05:[address] head/brain wo con Stat Cat Scan 06/26/25 05:23 Completed CTA Chest [CT angio chest - dissection] Stat Cat Scan 06/26/25 05:23 Completed CBC w/Auto Diff [Complete Blood Count Auto Diff] Stat Lab 06/26/25 04:29 Completed CMP [Comprehensive Metabolic Panel] Stat Lab 06/26/25 04:29 Completed D-Dimer Stat Lab 06/26/25 04:29 Completed Lactic Acid Follow Up (RFLX 1) Stat Lab 06/26/25 09:13 Received Lipase Stat Lab 06/26/25 04:29 Completed Rapid PCR Covid and Flu A/B Stat Lab 06/26/25 05:24 Completed Troponin I Q3H Lab 06/26/25 04:29 Completed Troponin I Q3H Lab 06/26/25 07:22 Completed VBG [Venous Blood Gas] Stat RT 06/26/25 04:44 Completed HEART Score HEART Score: 5 Medical Decision Narrative: 69-year-old male with extensive past medical history including brain tumor s/p resection, aortic pathology, hypertension, chronic headaches, presents for multiple complaints including chest pain, headaches, abdominal pain. History was obtained via interactive discussion with patient, family, chart review. On arrival, patient is [afebrile, hemodynamically stable, satting appropriately, alert, oriented x4, GCS 15], moving all extremities spontaneously. Full physical exam performed and significant for right sided facial paralysis (normal per patient), clear lungs bilaterally, mild abdominal distention without significant tenderness to palpation Differential includes but is not limited to intracranial hemorrhage, aneurysm, tumor, acute aortic pathology, ACS, PE, constipation. Patient was given aspirin and nitro x 2 by EMS prior to arrival. He was given Tylenol and GI cocktail in ED for symptomatic management and correction of underlying abnormalities. Workup initiated including broad-spectrum labs, CT scans of the head neck chest abdomen pelvis. On re-evaluation, patient reports significant improvement. Laboratory workup independently interpreted by me and significant for positive D-dimer, no significant leukocytosis, unremarkable VBG, negative initial troponin, lipase mildly elevated. Imaging independently interpreted by me and significant for no obvious intracranial hemorrhage, no obvious aortic dissection or PE. See radiology read for full review of final results. At this time care was handed off to oncoming physician pending formal radiology reads as well as repeat cardiac enzymes. King Shetty: Upon assumption of care patient is hemodynamically stable. Workup thus far reviewed by me no significant leukocytosis no transfusable anemia largely compensated acid-base status. Elevated D-dimer for which CT imaging has been conducted and formal read is pending. No PAUL or critical electrolyte abnormality initial troponin undetectably low elevated lipase 582. Patient has persistent headache CT imaging reviewed by me is nonactionable will treat additionally with Compazine, Toradol, diphenhydramine. Patient got up to use the bathroom and had resurgence of his chest pain 1 inch of Nitropaste will be administered. Given this patient has pancreatitis with abdominal pain radiating through to his back and elevation of his lipase in addition to unstable angina. Patient warrants inpatient mission at this time for continued evaluation the case was discussed with hospital medicine regarding management they agreeable admit the patient to their service for continued evaluation at this time. With respect to his headaches I do not think there is anything acute that needs to be done with terms of further diagnostics given that they are chronic at baseline and he has outpatient definitive care. Procedures <Bryan Malcolm MD - Last Filed: 06/26/25 06:51> Risk/Benefits of Procedure(s) Were Explained: Yes Critical Care <Bryan Malcolm MD - Last Filed: 06/26/25 06:51> Critical Care Time Critical Care Time: No
--- NOTE | 2025-06-26 05:23 | CT_ITS ---
PROCEDURE INFORMATION: Exam: CTA Chest With Contrast Exam date and time: 06/26/2025 5:52 AM Age: 69 years old Clinical indication: Pain; Chest pressure; Additional info: Cp, elevated dimer, HX aneurysm TECHNIQUE: Imaging protocol: Computed tomographic angiography of the chest with contrast. Exam focused on the arteries. 3D rendering (Not supervised by radiologist): MIP and/or 3D reconstructed images were created by the technologist. Radiation optimization: All CT scans at this facility use at least one of these dose optimization techniques: automated exposure control; mA and/or kV adjustment per patient size (includes targeted exams where dose is matched to clinical indication); or iterative reconstruction. Contrast material: ISOVUE; Contrast volume: 80 ml; Contrast route: INTRAVENOUS (IV); COMPARISON: CT ANGIO CHEST 01/30/2025 11:19 AM FINDINGS: Pulmonary arteries: Suboptimal pulmonary artery opacification on aortic arterial phase scanning. No definite vascular intraluminal filling defects to suggest large or central acute pulmonary embolism. Aorta: Ectatic, tortuous and mildly calcified thoracic aorta. 4.0 cm diameter dilated ascending thoracic aorta. No aortic dissection. Lungs: Mild upper lung zone emphysema and bibasilar atelectasis. No consolidation. A couple tiny right lower lobe calcified granulomas. Pleural spaces: No pleural effusion. No pneumothorax. Heart: Heart size is normal. Coronary arteries: Coronary artery calcifications and RCA extent. Lymph nodes: No enlarged lymph nodes. Bones/joints: Thoracic spondylosis and degenerative bony changes. Soft tissues: No significant soft tissue abnormalities. Other findings: Abdomen and pelvis findings reported separately. IMPRESSION: 1. No definite vascular intraluminal filling defects to suggest large or central acute pulmonary embolism. Nondiagnostic study for possible small or peripheral PE. 2. Atherosclerotic vascular disease including coronary artery disease. 3. 4.0 cm diameter dilated ascending thoracic aorta. 4. No aortic dissection. 5. Mild upper lung zone emphysema and bibasilar atelectasis. COMMENTS: The presence of pulmonary emphysema on CT is an independent risk factor for lung cancer. In the absence of a history or active diagnosis of lung cancer, it is recommended that this patient with emphysema be evaluated for enrollment in a low dose CT lung cancer screening program.
--- NOTE | 2025-06-26 05:23 | CT_ITS ---
PROCEDURE INFORMATION: Exam: CT Head Without Contrast Exam date and time: 06/26/2025 5:46 AM Age: 69 years old Clinical indication: Pain; Headache; Additional info: Recurrent headache TECHNIQUE: Imaging protocol: Computed tomography of the head without contrast. Radiation optimization: All CT scans at this facility use at least one of these dose optimization techniques: automated exposure control; mA and/or kV adjustment per patient size (includes targeted exams where dose is matched to clinical indication); or iterative reconstruction. COMPARISON: MR HEAD/BRAIN WO/W CON PIT/IAC 05/08/2025 8:06 AM FINDINGS: Brain: There is preservation of the pérez-white junction throughout. There is a partially calcified right posterior fossa extra-axial mass characterized on recent MRI. There is no mass effect. Cerebral ventricles: No ventriculomegaly. Paranasal sinuses: Visualized sinuses are unremarkable. No fluid levels. Mastoid air cells: Visualized mastoid air cells are well aerated. Bones: There are postop changes from right suboccipital craniotomy. Orbits: There are postoperative changes from prior cataract surgery. Soft tissues: There is a right superior eyelid weight with streak artifact. IMPRESSION: No acute change.
--- NOTE | 2025-06-26 05:23 | CT_ITS ---
PROCEDURE INFORMATION: Exam: CTA Abdomen and Pelvis With Contrast Exam date and time: 06/26/2025 5:52 AM Age: 69 years old Clinical indication: Abdominal pain; Acute; Additional info: Left abd pain TECHNIQUE: Imaging protocol: Computed tomographic angiography of the abdomen and pelvis with contrast. Exam focused on the arteries. 3D rendering (Not supervised by radiologist): MIP and/or 3D reconstructed images were created by the technologist. Radiation optimization: All CT scans at this facility use at least one of these dose optimization techniques: automated exposure control; mA and/or kV adjustment per patient size (includes targeted exams where dose is matched to clinical indication); or iterative reconstruction. Contrast material: ISOVUE; Contrast volume: 80 ml; Contrast route: INTRAVENOUS (IV); COMPARISON: CT ANGIO ABDOMEN PELVIS 02/08/2024 2:18 PM FINDINGS: Lungs: Lung bases and chest findings reported separately. Aorta: Previous distal abdominal aortic aneurysm aortoiliac stent graft repair with patent endovascular stents. Celiac and mesenteric arteries: Patent enhancing celiac artery and SMA. 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 Renal arteries: No occlusion or significant stenosis. Right iliac arteries: Crimping of the proximal right common iliac artery endovascular stent with moderate stenosis. Right common iliac artery poststenotic dilatation and 2.1 cm right common iliac artery aneurysm. Left iliac arteries: 2.2 cm left common iliac artery aneurysm. Liver: No acute abnormality. No mass. Gallbladder and biliary ducts: Unremarkable. No calcified stones. No ductal dilation. Pancreas: No acute abnormality. No mass. No ductal dilation. Spleen: No acute abnormality. Adrenal glands: No significant or acute abnormality. Kidneys and ureters: Excreted contrast within the bilateral renal collecting systems. No hydronephrosis or hydroureter. Redemonstrated incidental simple appearing bilateral renal cysts including 4.3 cm posterior right renal cyst. Stomach and bowel: Nondistended stomach. No significant large or small bowel distention. No evidence of diverticulitis. Appendix: Appendix is absent with tiny pericecal metallic clips. Intraperitoneal space: No significant fluid collection. No free air. Lymph nodes: No enlarged lymph nodes. Urinary bladder: Small amount of excreted contrast within incompletely distended urinary bladder. Reproductive: Unremarkable as visualized. Bones/joints: Multilevel spondylosis and degenerative bony changes. Soft tissues: Small fat containing bilateral inguinal hernias left greater than right. IMPRESSION: 1. Previous distal abdominal aortic aneurysm aortoiliac stent graft repair with patent endovascular stents. 2. 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 3. Crimping of the proximal right common iliac artery endovascular stent with moderate stenosis. 4. Right common iliac artery poststenotic dilatation and 2.1 cm right common iliac artery aneurysm. 5. 2.2 cm left common iliac artery aneurysm. 6. Small fat containing bilateral inguinal hernias left greater than right.
--- NOTE | 2025-06-26 05:26 | CT_ITS ---
PROCEDURE INFORMATION: Exam: CTA Head With Contrast, Arteriography Exam date and time: 06/26/2025 5:48 AM Age: 69 years old Clinical indication: Pain; Headache; Additional info: Severe headache TECHNIQUE: Imaging protocol: Computed tomographic angiography of the head with contrast. Exam focused on the arteries. 3D rendering (Not supervised by radiologist): MIP and/or 3D reconstructed images were created by the technologist. Radiation optimization: All CT scans at this facility use at least one of these dose optimization techniques: automated exposure control; mA and/or kV adjustment per patient size (includes targeted exams where dose is matched to clinical indication); or iterative reconstruction. Contrast material: ISOVUE; Contrast volume: 80 ml; Contrast route: INTRAVENOUS (IV); COMPARISON: CT HEAD/BRAIN WO CON 06/26/2025 5:46 AM FINDINGS: ANTERIOR CIRCULATION: Right internal carotid artery: There is atherosclerotic disease involving the right cavernous ICA [id number] narrowing cavernous segment unchanged. Right middle cerebral artery: No occlusion or significant stenosis. No aneurysm. Right anterior cerebral artery: No occlusion or significant stenosis. No aneurysm. Left internal carotid artery: There is atherosclerotic disease involving the left cavernous ICA without narrowing. Left middle cerebral artery: No occlusion or significant stenosis. No aneurysm. Left anterior cerebral artery: No occlusion or significant stenosis. No aneurysm. POSTERIOR CIRCULATION: Right vertebral artery: No occlusion or significant stenosis. No aneurysm. Left vertebral artery: No occlusion or significant stenosis. No aneurysm. Basilar artery: No occlusion or significant stenosis. No aneurysm. Right posterior cerebral artery: No occlusion or significant stenosis. No aneurysm. Left posterior cerebral artery: No occlusion or significant stenosis. No aneurysm. Brain: No dermal enhancement. Cerebral ventricles: No ventriculomegaly. Bones/joints: Stable operative changes from a right suboccipital craniotomy. Soft tissues: Unremarkable. IMPRESSION: 1. Stable narrowing cavernous ICA. 2. No large vessel acute intracranial arterial occlusion.
--- NOTE | 2025-06-26 05:26 | CT_ITS ---
PROCEDURE INFORMATION: Exam: CTA Neck With Contrast Exam date and time: 06/26/2025 5:48 AM Age: 69 years old Clinical indication: Pain; Headache; Additional info: Severe headache TECHNIQUE: Imaging protocol: Computed tomographic angiography of the neck with contrast. Exam focused on the cervical segments of the vasculature. 3D rendering (Not supervised by radiologist): MIP and/or 3D reconstructed images were created by the technologist. Radiation optimization: All CT scans at this facility use at least one of these dose optimization techniques: automated exposure control; mA and/or kV adjustment per patient size (includes targeted exams where dose is matched to clinical indication); or iterative reconstruction. Contrast material: ISOVUE; Contrast volume: 80 ml; Contrast route: INTRAVENOUS (IV); COMPARISON: CT ANGIO NECK 02/08/2024 2:14 PM FINDINGS: Right common carotid artery: No stenosis. No dissection or occlusion. Right internal carotid artery: There is atherosclerotic disease at the origin of the right cervical ICA without narrowing. Right external carotid artery: No occlusion or stenosis of the origin. Left common carotid artery: No stenosis. No dissection or occlusion. Left internal carotid artery: There is atherosclerotic disease at the origin of the left cervical ICA with a mild stenosis (1- 2.8/5.2 equals 46%). Left external carotid artery: No occlusion or stenosis of the origin. Right vertebral artery: No stenosis. No dissection or occlusion. Left vertebral artery: No stenosis. No dissection or occlusion. Soft tissues: Normal. No significant soft tissue swelling. Bones/joints: The mandible maxilla are edentulous. Degenerative changes throughout the cervical spine. IMPRESSION: 1. Borderline mild to moderate stenosis origin left cervical ICA. 2. No cervical arterial occlusion. REFERENCES: NASCET CRITERIA. The degree of stenosis in the cervical segment of the internal carotid artery is based on NASCET criteria. Normal is no stenosis. Mild is less than 50% stenosis. Moderate is 50-69% stenosis. Severe is 70% to 99% stenosis. Total occlusion is no detectable patent lumen.
[2025-06-26 05:31] LABS: Coronavirus 19, PCR Not Detected (NotDetected); Influenza A, PCR Not Detected (NotDetected); Influenza B, PCR Not Detected (NotDetected)
[2025-06-26 05:55] LABS: Troponin I < 0.01 ng/ml (0.00-0.034)
[2025-06-26] MEDS: IOPAMIDOL-370 (76%);100ML BOTTLE 160 ML IV (06:10)
[2025-06-26] MEDS: SODIUM CHLORIDE 0.9% 10ML SYR (RAD ONLY) 10 ML IV (06:10)
[2025-06-26] MEDS: 0.9 % SODIUM CHLORIDE 50 ML VIAL 100 ML IV (06:10)
--- NOTE | 2025-06-26 07:19 | PC.NURSE ---
0700 Care handoff report received from Ang VEGA
[2025-06-26 08:11] LABS: Troponin I < 0.01 ng/ml (0.00-0.034)
[2025-06-26 08:59] LABS: Reflex Lactic Add Lactic Reflex
[2025-06-26] MEDS: NITROGLYCERIN 1 GM OINTMENT TD (09:05)
--- NOTE | 2025-06-26 09:31 | PC.NURSE ---
second shift supervisor notified of patient being admitted
[2025-06-26 09:33] LABS: Lactic Acid Follow Up (RFLX 1) 0.9 mmol/L (0.7-2.1)
[2025-06-26] MEDS: PROCHLORPERAZINE 10MG/2ML VIAL 2.5 MG IV (09:33)
[2025-06-26] MEDS: KETOROLAC 30MG/ML VIAL 30 MG IV (09:33)
--- NOTE | 2025-06-26 09:49 | PC.NURSE ---
report called to mac VE[facility], pending transport
--- NOTE | 2025-06-26 09:50 | P.HP_ITS ---
<Statement entered by Sylvester Hahn MD - 06/26/25 17:34> Rounded on patient after nurse practitioner. Personally examined and interviewed patient. Agree with exam findings and care plan as documented. History of Present Illness *Admission Date: 06/26/25 *Reason for visit:: unstable angina, pancreatitis *History of present illness: Mr. Nolan is a 69-year-old male who presented to the emergency department today with multiple complaints. Complaints of headache (chronic), chest pain, left-sided abdominal pain with nausea, and shortness of air. 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 Patient states that he has been having chest pain, primarily left-sided for a few hours. Additionally has been having left-sided abdominal pain, states his last bowel movement was approximately 3 days ago. Additionally states he has had intermittent headaches, seemingly worse than normal. Patient states he has had multiple MRIs and been to multiple specialist and the consensus is they are related to his previous brain surgery. He also reports that he had a recent finding of a new aortic aneurysm. Patient had extensive workup in the emergency department including CTA of head, chest, neck, abdomen/pelvis. He was given aspirin and nitro x 2 by EMS, Tylenol, GI cocktail in the ED which did improve his abdominal/chest pain. Lab work was significant for lipase of 582, negative troponin, elevated D-dimer. Imaging of abdomen/pelvis shows previous abdominal aortic aneurysm repair, chronically occluded MATHEW with collaterals, cramping of the proximal right common iliac artery with moderate stenosis and stent, right common iliac artery poststenotic dilation and right common iliac artery aneurysm. 2.2 cm left common iliac artery aneurysm, small fat-containing bilateral inguinal hernias left greater than right. Chest CTA shows 4 cm diameter dilated ascending thoracic aorta, no aortic dissection, no PE. Head CTA shows stable narrowing cavernous ICA. 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 This could be the cause of his chronic and continued headaches. Patient continues to follow with who originally did patient's brain surgery and tumor removal in the . [facility] Disclaimer: The information contained in this section may have been updated after the patient was seen, as this information can be updated by other users. 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 TSH has not been drawn for some time we will check that today. Ingrown right big toenail Ingrown left big toenail Foot pain Wrist pain Rib pain on left side Left radial head fracture Diabetes mellitus Hypertensive heart disease Hyperlipidemia Gigi has not had a lipid panel drawn in some time. We will draw 1 today and he will continue his atorvastatin for now. Abdominal aortic aneurysm Aneurysm of ascending aorta Surgical History Hx of eye surgery gold weight to help close eyelid Hx of brain surgery tumor S/P AAA repair NOVEMBER 2021. Stented coronary artery Family History Other Family history of cancer Family history of diabetes mellitus type II Family history of myocardial infarction Social History Smoking Status: Former smoker tobacco type: cigarettes packs per day: 4 how long ago did patient quit smokin years second hand exposure: Yes alcohol intake: former counseling provided: none substance use type: marijuana current occupational status: retired Travel in the last 8 weeks?: None household members: other housing: house marital status: legally current occupational exposures/hazards: No caffeine: Yes physical activity: none do you feel safe at home: Yes victim of physical abuse: No victim of emotional abuse: No victim of sexual abuse: No Have you lived/traveled outside [place] in past 30 days?: No Contact w/someone who lives/traveled outside US past 30 days?: No Exposure to someone with infectious disease in past 14 days?: No Do you have a fever (greater than 100.4 F or 38 C)?: No Have you tested positive for COVID-19?: No Exposed to someone with COVID-19 in past 14 days?: No Do you have a sore throat?: No Do you have a cough?: No Do you have any weakness?: No Do you have any diarrhea?: No Are you experiencing any unusual bleeding?: No Do you have any muscle aches/pain?: No Do you have any abdominal pain?: No Are you experiencing loss of taste or smell?: No Other Medical History Have you received the Flu Vaccine for this season: No Have you received the Pneumonia Vaccine: No Review of Systems Constitutional Constitutional: Denies chills, Denies fatigue, Denies fever(s) and Reports headache(s) ENT Ears, Nose, Mouth, and Throat: Reports headache(s), Denies post nasal drip and Denies sinus pain *Cardiovascular Cardiovascular: Denies chest pain, Denies dyspnea on exertion, Denies irregular heart rhythm, Denies leg edema and Reports orthopnea *Respiratory Respiratory: Denies cough and Denies dyspnea on exertion *Gastrointestinal Gastrointestinal: Reports abdominal pain, Reports constipation, Reports nausea and Denies vomiting *Genitourinary Genitourinary: Denies difficulty urinating and Denies dysuria *Neurologic Neurologic: Reports headache(s) Endocrine Endocrine: Denies fatigue Meds Home Medications and Allergies Home Medications ?Medication ?Instructions ?Recorded ?Confirmed ?Type alfuzosin 10 mg tablet,extended 10 mg PO DAILY 3 06/26/25 History release 24 hr blood sugar diagnostic (Accu-Chek #50 ea 10/25/2305/30 Rx Guide test strips) aspirin 81 mg tablet,delayed 81 mg PO DAILY 06/26/25 1 History release atorvastatin 40 mg tablet 40 mg PO DAILY 06/26/2505/30 History cetirizine 10 mg tablet 10 mg PO DAILY 06/26/2505/30 History hydrochlorothiazide 12.5 mg capsule 12.5 mg PO DAILY 1 06/26/25 History levothyroxine 75 mcg tablet 75 mcg PO DAILY 06/26/25 1 History lidocaine 5 % topical patch 1 patch topical DAILY 05/3006/26/25 History losartan 50 mg tablet 50 mg PO DAILY 06/26/2505/30 History metoprolol succinate 25 mg 25 mg PO DAILY 06/26/25 History tablet,extended release 24 hr omeprazole 40 mg capsule,delayed 40 mg PO DAILY 06/26/25 History release ranolazine 500 mg tablet,extended 500 mg PO BID 06/26/25 History release,12 hr sildenafil (pulm.hypertension) 20 20 mg PO NEEDED P RN Sexual 06/26/25 06/26/25 History mg tablet Activity New Prescriptions to Start Prescriptions: Allergies Allergy/AdvReac Type Severity Reaction Status Date / Time hydromorphone (From Dilaudid) Allergy Severe Anaphylaxis Verified 06/26/25 05:02 latex (LATEX) Allergy Unknown Unknown Verified 06/26/25 05:02 allergy reaction Penicillins (PENICILLINS) Allergy Unknown Unknown Verified 06/26/25 05:02 allergy reaction Sulfa (Sulfonamide Allergy Unknown Unknown Verified 06/26/25 05:02 Antibiotics) (SULFA allergy (SULFONAMIDE ANTIBIOTICS)) reaction Exam Data for Last 24 hours Vital signs and Labs for Last 24 Hours: Temp Pulse Resp BP Pulse Ox O2 Del Method 97.9 F 68 13 147/89 H 95 Room Air 06/26/25 04:52 06/26/25 08:31 06/26/25 08:31 06/26/25 08:31 06/26/25 08:31 06/26/25 04:52 Laboratory Results - last 24 hr 06/26/25 04:29: WBC 8.8, RBC 4.36 L, Hgb 13.3 L, Hct 40.6 L, MCV 93.1, MCH 30.5, MCHC 32.8, RDW 12.9, Plt Count 199, MPV 10.0, Neut % (Auto) 47.0, Lymph % (Auto) 41.5, Curry % (Auto) 7.1, Eos % (Auto) 3.2, Baso % (Auto) 1.1, Neut # (Auto) 4.1, Lymph # (Auto) 3.6, Curry # (Auto) 0.6, Eos # (Auto) 0.3, Baso # (Auto) 0.1, D- Dimer 2.42 H, Sodium 142, Potassium 4.0, Chloride 106, Carbon Dioxide 28, Anion Gap 12.0, BUN 18, Creatinine 1.10, Estimated Creat Clear 65, Estimated GFR 66, Est GFR ( Amer) 80, Glucose 134 H, Calcium 9.2, Total Bilirubin 0.7, AST 24, ALT 18, Alkaline Phosphatase 110, Troponin I < 0.01, Total Protein 7.5, Albumin 4.4, Globulin 3.1, Albumin/Globulin Ratio 1.4, Lipase 582 H 06/26/25 04:44: VBG pH 7.35, VBG pCO2 41.5, VBG pO2 60.2 H, VBG HCO3 22.4 L, VBG Total CO2 23.7, VBG O2 Saturation 89.3 H, VBG Base Excess -3.1 L, VBG Lactic Acid 2.8 H 06/26/25 05:24: SARS-CoV-2 (PCR) Not detected, Influenza A Untype (PCR) Not detected, Influenza Type B (PCR) Not detected 06/26/25 07:22: Troponin I < 0.01 06/26/25 09:13: Lactate 0.9 I & O for Last 24 hours: Intake & Output 06/23/25 06/24/25 06/25/25 06/26/25 23:59 23:59 23:59 23:59 Weight 74.843 kg Constitutional Constitutional: no acute distress, average body habitus, chronically ill appearing and cooperative *Routine HEENT Exam Head: Present normocephalic and other (Right-sided facial paralysis) Eye: Present EOMI ENT: Present mucous membranes moist and septal deviation *Routine Neck Exam Neck: Present supple *Routine Respiratory Exam Respiratory: Present normal respiratory effort; Absent wheezes or crackles *Routine Cardiovascular Exam Cardiovascular: Present Normal S1, Normal S2 and bradycardia *Routine Abdominal Exam Abdominal: Present soft, normoactive bowel sounds and tenderness (Left-sided intermittent tenderness); Absent distended *Routine Rectal Exam Rectal:: deferred *Routine Genitalia Exam Genitalia:: deferred *Routine Extremities Exam Extremities: Present full ROM; Absent cyanosis, clubbing or edema *Routine Skin Exam Skin: Present intact, dry and warm; Absent rash *Routine Neurological Exam Neurological: Present alert, oriented X3 and normal speech Assessment and Plan *Assessment and plan (1) Pancreatitis: Status: Acute Category: Medical Code(s): K85.90 - Acute pancreatitis without necrosis or infection, unspecified (2) Elevated lipase: Status: Acute Category: Medical Code(s): R74.8 - Abnormal levels of other serum enzymes (3) Abdominal pain: Status: Acute Category: Medical Code(s): R10.9 - Unspecified abdominal pain (4) Angina pectoris, unstable: Status: Acute Category: Medical Code(s): I20.0 - Unstable angina (5) Persistent headaches: Status: Chronic Category: Medical Code(s): R51.9 - Headache, unspecified Plan Mr. Nolan is a 69-year-old male who presented to the emergency department with chest pain, abdominal pain, headache, shortness of air. Patient was found to have slightly elevated lipase at 582, chest pain that improved with nitroglycerin and worsened with activity. He remained hemodynamically stable in the emergency department, hospital medicine was consulted for admission, I agreed to admit the patient. Plan as follows: #Pancreatitis #Elevated lipase #Abdominal pain ? Patient complains of left-sided abdominal pain referred around to his back. States it is intermittent. Lipase elevated at 582. States he has not had a history of pancreatitis in the past. Does not appear to be on any medication that would put him at increased risk of pancreatitis. Patient does endorse smoking marijuana daily but otherwise denies alcohol or drug use. Will initiate LR at 100 mL/H, advance diet as tolerated. Patient abdominal pain nontender to palpation. ?Abdomen/pelvis CTA does not show obstruction, no acute abnormalities noted on the pancreas, gallbladder unremarkable, no stones no ductal dilation. ?Lab work reassuring, WBC 8.8, hemoglobin 13.3, no electrolyte abnormalities, kidney function stable, creatinine 1.10. ?CBC, CMP, lipase, magnesium ordered for the a.m. #Unstable angina #CAD/HTN/HLD #Bradycardia ? Upon assessment patient currently denies chest pain. Patient received nitroglycerin in the ED which resolved his discomfort. Patient vitals reassuring, EKG showing sinus bradycardia. No ST elevation or depression. Initial troponin negative, continuing to trend. Continuous cardiac telemetry in place, cardiology consulted for further recommendations. ?Upon chart review patient did have exercise stress test on 04/03/2025 which showed no arrhythmias or ectopy, ST changes less than 0.[address] segment changes. ?Patient last had LHC in 02/2020 medical management, does have a history of FARZANA in 2017. Blood patient has been stable, echo 04/21 showed normal BiV function, no valvular stenosis or regurgitation. LDL goal less than 55, lipid panel pending. ?Continue patient's home medication for his coronary artery disease: Aspirin 81 mg daily, Lipitor 40 mg daily, HCTZ 12.5 mg daily, losartan 50 mg daily, and ranolazine 500 mg twice daily. ?Patient prescribed metoprolol succinate 25 mg daily, patient appears that he has been bradycardic during this admission and previous visits to the hospital. Will hold metoprolol succinate. #Shortness of air: Patient complains of shortness of air, has a history of brain surgery with reconstruction. States that he is waiting to see an ENT at for further surgical recommendations due to nasal septal issues. Patient currently stable on room air, 96%. States he usually only feels short of breath when laying flat or laying on his side. Continuing to monitor during admission. #Persistent headaches: Patient states he has chronic/persistent headaches. Some worse than others. 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 Tylenol, [place], morphine ordered as needed. Monitoring for toxicity. #Hypothyroidism: Patient TSH stable in August 2024, continue levothyroxine 75 mcg daily. #BPH: Continue alfuzosin 10 mg daily. #GERD: Continue omeprazole 40 mg daily. #Type 2 diabetes: Patient's A1c 5.5%. Very well-controlled does not currently take medication for diabetes. Will monitor with daily CMP's. Full code Ambulate as tolerated VTE?Lovenox Cardiac diet
--- NOTE | 2025-06-26 10:25 | PC.NURSE ---
arrived from er
[2025-06-26 10:30] LABS: Hemoglobin A1C 5.5 % (4.0-6.0)
[2025-06-26] MEDS: LACTATED RINGERS 1000ML 1,000 ML 100 ML IV (13:14)
[2025-06-26] MEDS: HYDROCODONE/APAP 5/325 MG TABLET 1 TAB PO (13:17)
--- NOTE | 2025-06-26 13:48 | HMH.PTEV ---
Physical Therapy Evaluation Rehab PT IP Evaluation Start: 06/26/25 11:19 Freq: ONCE Status: Active Protocol: Document 06/26/25 13:44 SILVESTRE (Rec: 06/26/25 13:48 SILVESTRE [id number]) Subjective/History History History 69-year-old male who presented to the emergency department today with multiple complaints. Complaints of headache (chronic), chest pain, left-sided abdominal pain with nausea, and shortness of air. 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 Patient states that he has been having chest pain, primarily left-sided for a few hours. Additionally has been having left-sided abdominal pain, states his last bowel movement was approximately 3 days ago. Additionally states he has had intermittent headaches, seemingly worse than normal . Patient states he has had multiple MRIs and been to multiple specialist and the consensus is they are related to his previous brain surgery. He also reports that he had a recent finding of a new aortic aneurysm. Patient had extensive workup in the emergency department including CTA of head, chest, neck, abdomen/ pelvis. He was given aspirin and nitro x 2 by EMS, Tylenol, GI cocktail in the ED which did improve his abdominal/chest pain. Lab work was significant for lipase of 582, negative troponin, elevated D-dimer. Imaging of abdomen/pelvis shows previous abdominal aortic aneurysm repair, chronically occluded MATHEW with collaterals, cramping of the proximal right common iliac artery with moderate stenosis and stent, right common iliac artery poststenotic dilation and right common iliac artery aneurysm. 2.2 cm left common iliac artery aneurysm, small fat-containing bilateral inguinal hernias left greater than right. Chest CTA shows 4 cm diameter dilated ascending thoracic aorta, no aortic dissection, no PE. Head CTA shows stable narrowing cavernous ICA. 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 This could be the cause of his chronic and continued headaches. Patient continues to follow with who originally did patient's brain surgery and tumor removal in the . Subjective Subjective Pt reports he lives with family, 2 MO the home, and he is generally independent with all mobility without an AD. He is agreeable to OOB mobility assessment. [facility] How much help from another person do you currently need... Turning from your None back to your side while in a flat bed without using bedrails? Moving from lying on None back to sitting on the side of a flat bed without using bedrails? Moving to and from a None bed to a chair ( including a wheelchair)? Standing up from a None chair using your arms? (e.g., wheelchair, bedside chair) Walking in hospital None room? Climbing 3-5 steps None with a railing? Mobility Score 24 Mobility Level [facility] Mobility Walk 250 feet or more Mobility Calculator Rehab PT IP Eval Objective Appearance Patient Behavior Appropriate Patient Orientation Person,Place,Time Difficulty following none instructions Speech Pattern Clear Ambulation Patient Able to Yes Ambulate Ambulation Observation IP General Gait No Deviations/Normal Pattern Observation Ambulation Distance 50 (feet) Ambulation Assistive None Device Ambulation Ability Independent Balance Ability to Arise Able, uses arms to help Sitting Balance Steady, safe Standing Balance Steady, wide stance Dynamic Sitting Good Balance Ability Dynamic Standing Good Balance Ability Transfers Bed Transfer Ability Independent Chair Transfer Independent Ability Sit to Stand Bed Independent Transfer Ability Sit to Stand Chair Independent Transfer Ability Rehab PT IP prob,goals,plan Problems Date of Evaluation: 06/26/25 Discharge Plan PT Discharge Plan Pt is currently appropriate to return home once medically stable for d/c. No current skilled acute therapy needs. Eval Complexity Eval Charge Codes 50604 - High Complexity PHYSICIAN CERTIFICATION: I certify the specified therapy services for Gigi Nolan SR are required, authorized, and reviewed every 30 days.
--- NOTE | 2025-06-26 14:03 | HMH.OTEV ---
OT Evaluation Rehab OT IP Evaluation Start: 06/26/25 11:19 Freq: ONCE Status: Active Protocol: Document 06/26/25 13:54 [facility] (Rec: 06/26/25 14:03 [facility] [id number]) Rehab OT IP Assessment Subjective History Pt admitted on 06/26/25 due to angina and pancreatitis. History and physical: Mr. Nolan is a 69-year-old male who presented to the emergency department today with multiple complaints. Complaints of headache (chronic), chest pain, left- sided abdominal pain with nausea, and shortness of air. 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 Patient states that he has been having chest pain, primarily left- sided for a few hours. Additionally has been having left-sided abdominal pain, states his last bowel movement was approximately 3 days ago. Additionally states he has had intermittent headaches, seemingly worse than normal. Patient states he has had multiple MRIs and been to multiple specialist and the consensus is they are related to his previous brain surgery. He also reports that he had a recent finding of a new aortic aneurysm. Patient had extensive workup in the emergency department including CTA of head, chest, neck, abdomen/ pelvis. He was given aspirin and nitro x 2 by EMS, Tylenol, GI cocktail in the ED which did improve his abdominal/chest pain. Lab work was significant for lipase of 582, negative troponin, elevated D-dimer. Imaging of abdomen/pelvis shows previous abdominal aortic aneurysm repair, chronically occluded MATHEW with collaterals, cramping of the proximal right common iliac artery with moderate stenosis and stent, right common iliac artery poststenotic dilation and right common iliac artery aneurysm. 2.2 cm left common iliac artery aneurysm, small fat-containing bilateral inguinal hernias left greater than right. Chest CTA shows 4 cm diameter dilated ascending thoracic aorta, no aortic dissection, no PE. Head CTA shows stable narrowing cavernous ICA. 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 This could be the cause of his chronic and continued headaches. Patient continues to follow with [facility] who originally did patient's brain surgery and tumor removal in the . Subjective Prior to being in the hospital, pt lived at home. Currently patients son is residing with him on a temporary basis. Pt claims usually he is independent with all ADLs and IADLs. He does use a walking stick during functional transfers. Pt also still drives. Objective Patient Orientation Person,Place,Birthday Right Upper WFL Extremity Gross ROM Left Upper Extremity WFL Gross ROM Bed Mobility bed mobility-scooting,bed mobility - supine/sit Assist Level Supervision/Stand by Transfer Training Sit/Stand Transfer Assist Level Supervision/Stand by Lower Body Dressing Standby Assistance Ability Rehab OT IP prob,goals,plan Problems Date of Evaluation: 06/26/25 Rehab Potential Rehab Potential Innapropriate for Skilled Therapy Discharge Plan OT Discharge Plan Pt appears to be at his baseline with functional transfers and ADL independence. Pt can return home once medically stable per physician. No further therapy services required at this time. Eval Complexity Eval Charge Codes 11899 - Moderate Complexity PHYSICIAN CERTIFICATION: I certify the specified therapy services for Gigi Nolan SR are required, authorized, and reviewed every 30 days.
--- NOTE | 2025-06-26 14:42 | EXP.CARD.CON ---
History of Present Illness History of Present Illness Consult date: 06/26/25 Requesting physician: Mariaelena Santo Consult reason: chest pain Chief complaint: chest pain, SOA, head congestion Additional Medical History:: 1. Coronary disease A. History of abnormal stress test with inferior ischemia, 11/2016 B. [facility] with FARZANA to RCA, 11/2016. Aspirin and Effient therapy. C. Federico Myoview, 02/2017, No ischemia with inferior scar. EF 55%. D. chest pain with normal troponins, 05/2017, [facility], patent RCA stent with insignificant CAD of true circumflex. Normal LVEF. E. Federico myoview, 07/2018, mixed inferior ischemia and scar with wall motion abnormalities. LVEF 54% F. [facility], 07/2018, patents stent to RCA, endothelial dysfunction noted (slow flow down coronaries). Medical therapy. G. [facility], 02/2020, patent stents in RCA, mild to mod CAD of LAD and small circumflex. Medical therapy recommended H. Federico Myoview, 2022, no ischemia with EF 54%. I. Keren Myoview, 2023, no ischemia, EF 49% with fixed defect with severe hypokinesis of the basal inferior LV wall. J. Lexiscan Myoview, 03/2025, no fixed or reversible defects. EF 54%. 2. 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 Follows with neurology at . Recent MRI of the brain 02/2017, results pending 3. History of both ascending aortic aneurysm (4 cm) and abdominal aortic aneurysm (3.9 X 3.4 cm), with CTA of the chest and abdomen, 07/2016. A. CTA of chest, 03/08/2017, AAA at 4 cm. B. CTA of chest, 02/2018, stable. C. CTA of chest and abdomen, 06/2019, AAA and Abdominal aortic aneurysm, stable. D. AAA repair, November 2021 E. CTA of the chest, 03/2025, ascending aortic aneurysm 4 cm 4. Diabetes mellitus, Type II 5. Hyperlipidemia, on statin therapy 6. Remote tobacco use discontinued approximately 2002 A. centrilobular emphysema by CTA of chest, 02/2018 7. Erectile dysfunction with intermittent sildenafil use 8. GI disease A. EGD, 10/2020, cricopharyngeal spasm status post dilation to 20 mm. Nonerosive GERD. Bile reflux with linear reactive gastropathy. Dr. Ambrocio. Aliza. Colonoscopy, 11/15/2020, 8 colonic polyps, left-sided diverticulosis, grade 2 internal hemorrhoids, firm asymmetric prostate. Dr. Ambrocio. Mj. Symptomatic dysphagia treated with bougie dilation, 06/17/2023, Dr. Gamez History of present illness: Mr. Nolan is a 69-year-old male who presented to the emergency department today with multiple complaints. Complaints of headache (chronic), chest pain, left-sided abdominal pain with nausea, and shortness of air. 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 Patient states that he has been having chest pain, primarily left-sided for a few hours. Additionally has been having left-sided abdominal pain, states his last bowel movement was approximately 3 days ago. Additionally states he has had intermittent headaches, seemingly worse than normal. Patient states he has had multiple MRIs and been to multiple specialist and the consensus is they are related to his previous brain surgery. He also reports that he had a recent finding of a new aortic aneurysm. Patient had extensive workup in the emergency department including CTA of head, chest, neck, abdomen/pelvis. He was given aspirin and nitro x 2 by EMS, Tylenol, GI cocktail in the ED which did improve his abdominal/chest pain. Lab work was significant for lipase of 582, negative troponin, elevated D-dimer. Imaging of abdomen/pelvis shows previous abdominal aortic aneurysm repair, chronically occluded MATHEW with collaterals, cramping of the proximal right common iliac artery with moderate stenosis and stent, right common iliac artery poststenotic dilation and right common iliac artery aneurysm. 2.2 cm left common iliac artery aneurysm, small fat-containing bilateral inguinal hernias left greater than right. Chest CTA shows 4 cm diameter dilated ascending thoracic aorta, no aortic dissection, no PE. Head CTA shows stable narrowing cavernous ICA. 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 This could be the cause of his chronic and continued headaches. Patient continues to follow with who originally did patient's brain surgery and tumor removal in the . The above per Mariaelena Santo APRN for the hospitalist service. The above events confirmed with the patient. His main complaints to me at the time of my exam were recurrent head and sinus congestion to the point that he could not breathe last night despite going out in the cold air. He also describes some chest discomfort which did improve but did not resolve with nitro at home. The concoction of aspirin, nitro, Tylenol and GI cocktail given by the EMS did give improvement and resolution of his chest pain en route to the hospital. Patient has an extensive history of cardiac testing most of which has been normal. He did have stents to his right coronary artery in the remote past. When asked if he feels like this could be cardiac or GI related he states he does not feel like this is his heart. At this point we have agreed to just follow his troponins and consider further testing if they turn positive. [facility] Disclaimer: The information contained in this section may have been updated after the patient was seen, as this information can be updated by other users. 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 TSH has not been drawn for some time we will check that today. Ingrown right big toenail Ingrown left big toenail Foot pain Wrist pain Rib pain on left side Left radial head fracture Diabetes mellitus Hypertensive heart disease Hyperlipidemia Gigi has not had a lipid panel drawn in some time. We will draw 1 today and he will continue his atorvastatin for now. Abdominal aortic aneurysm Aneurysm of ascending aorta Surgical History Hx of eye surgery gold weight to help close eyelid Hx of brain surgery tumor S/P AAA repair NOVEMBER 2021. Stented coronary artery Family History Other Family history of cancer Family history of diabetes mellitus type II Family history of myocardial infarction Social History Smoking Status: Former smoker tobacco type: cigarettes packs per day: 4 how long ago did patient quit smokin years second hand exposure: Yes alcohol intake: former counseling provided: none substance use type: marijuana current occupational status: retired Travel in the last 8 weeks?: None household members: other housing: house marital status: legally current occupational exposures/hazards: No caffeine: Yes physical activity: none do you feel safe at home: Yes victim of physical abuse: No victim of emotional abuse: No victim of sexual abuse: No Have you lived/traveled outside [place] in past 30 days?: No Contact w/someone who lives/traveled outside [place] past 30 days?: No Exposure to someone with infectious disease in past 14 days?: No Do you have a fever (greater than 100.4 F or 38 C)?: No Have you tested positive for COVID-19?: No Exposed to someone with COVID-19 in past 14 days?: No Do you have a sore throat?: No Do you have a cough?: No Do you have any weakness?: No Do you have any diarrhea?: No Are you experiencing any unusual bleeding?: No Do you have any muscle aches/pain?: No Do you have any abdominal pain?: No Are you experiencing loss of taste or smell?: No Review of Systems Review of Systems Review of systems:: pertinent systems reviewed and negative unless documented below Constitutional Constitutional: Reports headache(s) ENT Ears, Nose, Mouth, and Throat: Reports headache(s) *Neurologic Neurologic: Reports headache(s) Exam Data for Last 24 hours Vital signs and Labs for Last 24 Hours: Temp Pulse Resp BP Pulse Ox O2 Del Method 98.1 F 50 L 18 137/87 96 Room Air 06/26/25 10:19 06/26/25 10:19 06/26/25 10:19 06/26/25 10:19 06/26/25 10:00 06/26/25 11:00 Laboratory Results - last 24 hr 06/26/25 04:29: WBC 8.8, RBC 4.36 L, Hgb 13.3 L, Hct 40.6 L, MCV 93.1, MCH 30.5, MCHC 32.8, RDW 12.9, Plt Count 199, MPV 10.0, Neut % (Auto) 47.0, Lymph % (Auto) 41.5, [place] % (Auto) 7.1, Eos % (Auto) 3.2, Baso % (Auto) 1.1, Neut # (Auto) 4.1, Lymph # (Auto) 3.6, [place] # (Auto) 0.6, Eos # (Auto) 0.3, Baso # (Auto) 0.1, D-Dimer 2.42 H, Sodium 142, Potassium 4.0, Chloride 106, Carbon Dioxide 28, Anion Gap 12.0, BUN 18, Creatinine 1.10, Estimated Creat Clear 65, Estimated GFR 66, Est GFR ( Amer) 80, Glucose 134 H, Hemoglobin A1c 5.5, Calcium 9.2, Total Bilirubin 0.7, AST 24, ALT 18, Alkaline Phosphatase 110, Troponin I < 0.01, Total Protein 7.5, Albumin 4.4, Globulin 3.1, Albumin/Globulin Ratio 1.4, Lipase 582 H 06/26/25 04:44: VBG pH 7.35, VBG pCO2 41.5, VBG pO2 60.2 H, VBG HCO3 22.4 L, VBG Total CO2 23.7, VBG O2 Saturation 89.3 H, VBG Base Excess -3.1 L, VBG Lactic Acid 2.8 H 06/26/25 05:24: SARS-CoV-2 (PCR) Not detected, Influenza A Untype (PCR) Not detected, Influenza Type B (PCR) Not detected 06/26/25 07:22: Troponin I < 0.01 06/26/25 09:13: Lactate 0.9 I & O for Last 24 hours: Intake & Output 06/24/25 06/25/25 06/26/25 06/27/25 11:59 11:59 11:59 11:59 Intake Total 240 / 240 Output Total 100 / 100 Balance -100 / -100 240 / 240 Weight 196 lb 4.8 oz Constitutional Constitutional: no acute distress *Routine Respiratory Exam Respiratory: Present CTA bilaterally; Absent rales, rhonchi or wheezes *Routine Cardiovascular Exam Cardiovascular: Present RRR and murmur; Absent gallop or rubs *Routine Extremities Exam Extremities: Absent edema *Routine Neurological Exam Neurological: Present alert, oriented X3 and CN II-XII intact Meds Home Medications and Allergies Home Medications ?Medication ?Instructions ?Recorded ?Confirmed ?Type alfuzosin 10 mg tablet,extended 10 mg PO DAILY 02/19/23 06/26/25 History release 24 hr blood sugar diagnostic (Accu-Chek #50 ea 10/25/23 06/26/25 Rx Guide test strips) aspirin 81 mg tablet,delayed 81 mg PO DAILY 06/26/25 06/26/25 History release atorvastatin 40 mg tablet 40 mg PO DAILY 06/26/25 06/26/25 History cetirizine 10 mg tablet 10 mg PO DAILY 06/26/25 06/26/25 History hydrochlorothiazide 12.5 mg capsule 12.5 mg PO DAILY 06/26/25 06/26/25 History levothyroxine 75 mcg tablet 75 mcg PO DAILY 06/26/25 06/26/25 History lidocaine 5 % topical patch 1 patch topical DAILY 06/26/25 06/26/25 History losartan 50 mg tablet 50 mg PO DAILY 06/26/25 06/26/25 History metoprolol succinate 25 mg 25 mg PO DAILY 06/26/25 06/26/25 History tablet,extended release 24 hr omeprazole 40 mg capsule,delayed 40 mg PO DAILY 06/26/25 06/26/25 History release ranolazine 500 mg tablet,extended 500 mg PO BID 06/26/25 06/26/25 History release,12 hr sildenafil (pulm.hypertension) 20 20 mg PO NEEDED PRN Sexual 06/26/25 06/26/25 History mg tablet Activity New Prescriptions to Start Prescriptions: Allergies Allergy/AdvReac Type Severity Reaction Status Date / Time hydromorphone (From Dilaudid) Allergy Severe Anaphylaxis Verified 06/26/25 05:02 latex (LATEX) Allergy Unknown Unknown Verified 06/26/25 05:02 allergy reaction Penicillins (PENICILLINS) Allergy Unknown Unknown Verified 06/26/25 05:02 allergy reaction Sulfa (Sulfonamide Allergy Unknown Unknown Verified 06/26/25 05:02 Antibiotics) (SULFA allergy (SULFONAMIDE ANTIBIOTICS)) reaction Assessment and Plan *Assessment and plan (1) Angina pectoris, unstable: Status: Acute Category: Medical Code(s): I20.0 - Unstable angina (2) Pancreatitis: Status: Acute Qualifiers: Chronicity: acute Pancreatitis type: unspecified pancreatitis type Acute pancreatitis complication: unspecified Qualified Code(s): K85.90 - Acute pancreatitis without necrosis or infection, unspecified Category: Medical Code(s): K85.90 - Acute pancreatitis without necrosis or infection, unspecified (3) Elevated lipase: Status: Acute Category: Medical Code(s): R74.8 - Abnormal levels of other serum enzymes (4) Abdominal pain: Status: Acute Qualifiers: Abdominal location: generalized Qualified Code(s): R10.84 - Generalized abdominal pain Category: Medical Code(s): R10.9 - Unspecified abdominal pain (5) Head ache: Status: Acute Qualifiers: Headache type: unspecified Headache chronicity pattern: chronic headache Intractability: not intractable Qualified Code(s): R51.9 - Headache, unspecified; G89.29 - Other chronic pain Category: Medical Code(s): R51.9 - Headache, unspecified (6) Carotid stenosis, asymptomatic: Problem Comment: Asymptomatic carotid stenosis on best medical therapy including aspirin, statins Status: Suspected Qualifiers: Laterality: right Qualified Code(s): I65.21 - Occlusion and stenosis of right carotid artery Category: Medical Code(s): I65.29 - Occlusion and stenosis of unspecified carotid artery (7) History of brain tumor: Problem Comment: Status post right acoustic neuroma resection Status: Resolved Category: Medical Code(s): Z87.898 - Personal history of other specified conditions (8) Coronary arteriosclerosis: Status: Chronic Category: Medical Code(s): I25.10 - Atherosclerotic heart disease of [place] coronary artery without angina pectoris (9) Samuel Nelson syndrome (geniculate herpes zoster): Status: Acute Category: Medical Code(s): B02.21 - Postherpetic geniculate ganglionitis (10) S/P AAA repair: Problem Comment: NOVEMBER 2021. Status: Chronic Category: Surgical Code(s): Z98.890 - Other specified postprocedural states; Z86.79 - Personal history of other diseases of the circulatory system (11) Aneurysm of ascending aorta: Status: Chronic Qualifiers: Presence of rupture: without rupture Qualified Code(s): I71.21 - Aneurysm of the ascending aorta, without rupture Category: Medical Code(s): I71.21 - Aneurysm of the ascending aorta, without rupture Plan 1. Chest pain with known CAD/remote RCA stenting -normal troponin -remote RCA stent in 2017 with cath in 2019 showing mild to mod CAD relegated to medical therapy -recent stress test in 03/2025 normal -recent echo, 03/2025, normal BiV systolic function with no significant valve disease. Ascending aorta 4.1 cm. -continue ASA, statin, metoprolol and ranexa -Monitor on telemetry 2. Head congestion with chronic headache since brain surgery -Respiratory panel negative for flu and COVID -recent MRI stable per patient -CT and CTA of head without significant abnormalities -defer to hospitalist 3. Stable ascending aortic aneurysm 4 cm 4. History of GI problems including esophageal stricture with prior dilation 5. Elevated D-dimer with chest CTA negative for PE, this admission 6. Elevated lipase with abdominal pain with concern for pancreatitis 7. History of brain surgery to remove benign tumor 8. History of Samuel Nelson syndrome Continue serial troponins and will discuss possible cardiac catheterization tomorrow if patient wishes to proceed with this. Symptoms may be related to history of esophageal stricture with patient noting difficulty swallowing recently.
[2025-06-26] MEDS: MORPHINE 2MG/ML SYRINGE 2 MG IV (18:14)
[2025-06-26] MEDS: RANOLAZINE 500MG ER TABLET 500 MG PO (20:18)
[2025-06-26] MEDS: TAMSULOSIN 0.4MG CAPSULE 0.4 MG PO (20:18)
[2025-06-26] MEDS: PANTOPRAZOLE 40MG TABLET 40 MG PO (20:18)
[2025-06-26] MEDS: ATORVASTATIN 40MG TABLET 40 MG PO (20:18)
[2025-06-27] VITALS: BP 130/76; PULSE 56; PULSE 60; RESP 15; TEMP 36.7; O2SAT 93
--- NOTE | 2025-06-27 01:18 | PC.NURSE ---
Pt AOx4, [employer] [place] [employer], deaf in R ear. Had a headache earlier in the shift that was treated with tylenol. This allowed the patient to sleep. Tolerating room air. Respirations even and unlabored. Bed is low, locked, and call light is in reach.
[2025-06-27] MEDS: ONDANSETRON 4MG/2ML VIAL 4 MG IV ×2 (01:40→10:17)
[2025-06-27] MEDS: HYDROCODONE/APAP 5/325 MG TABLET 1 TAB PO ×2 (01:46→07:29)
[2025-06-27] MEDS: LACTATED RINGERS 1000ML 1,000 ML 100 ML IV (03:19)
[2025-06-27 04:00] VITALS: BP 139/74; PULSE 51; PULSE 55; RESP 16; TEMP 36.4; O2SAT 95; BMI 32.6
[2025-06-27 06:25] LABS: Hematocrit 34.1 % (42.0-52.0); Hemoglobin 11.1 g/dL (14.1-18.0); Immature Granulocytes % 0.3 %; Mean Corpuscular HGB Conc 32.6 g/dL (31.8-35.4); Mean Corpuscular Hemoglobin 30.0 pg (27.0-31.2); Mean Corpuscular Volume 92.2 fl (80-94); Nucleated Red Blood Cells % 0 %; Platelet Count 142 K/mm3 (142-424); Red Blood Count 3.70 M/mm3 (4.60-6.20); Red Cell Distribution Width-SD 43.3 fL; White Blood Count 7.0 K/mm3 (4.8-10.8)
[2025-06-27 06:36] LABS: Albumin Level 3.5 g/dl (3.5-5.0); Chloride 106 mmol/L (98-107); Sodium 137 mmol/L (136-145)
[2025-06-27 06:37] LABS: Potassium 4.1 mmoL/L (3.5-5.1)
[2025-06-27 06:39] LABS: Alanine Aminotransferase 13 U/L (12-78); Albumin/Globulin Ratio 1.9 (1.1-1.8); Alkaline Phosphatase 75 U/L (38-126); Anion Gap 6.1 mEq/L (5-15); Aspartate Amino Transferase 25 U/L (17-59); Bilirubin,Total 0.6 mg/dl (0.2-1.3); Blood Urea Nitrogen 18 mg/dl (9-20); Carbon Dioxide 29 mmol/L (22.0-30.0); Cholesterol 118 mg/dl (140-200); Creatinine Clearance Estimated 85 mL/min (50-200); Creatinine,Serum 1.10 mg/dl (0.66-1.25); Estimated Glomerular Filt Rate 66 ml/min (>60); GFR (African American) 80 ML/MIN (>60); Globulin 1.8 g/dL (1.3-3.2); Glucose 103 mg/dl (74-100); Total Protein,Serum 5.3 g/dl (6.3-8.2); Triglycerides 147 mg/dl (30-150)
[2025-06-27 06:40] LABS: Calcium 8.8 mg/dl (8.4-10.2); HDL Cholesterol 31 mg/dl (40-60); Magnesium 2.1 mg/dl (1.6-2.3)
[2025-06-27 06:49] LABS: Lipase 30 U/L (23-300)
--- NOTE | 2025-06-27 07:29 | EXP.CARD.PN ---
Subjective Subjective Date: 06/27/25 Time: 07:30 Principal diagnosis: chest pain, SOA, head congestion, headache Interval history: 69-year-old white male lying in bed in no acute distress. He did have a recurrent episode of some head congestion last night with the need to allow mucus to drain out of his mouth and nose. Some anxiety with that causing some increase in shortness of breath. He denies any chest pain, pressure or tightness. He does relate going for an EGD about 2 months ago but was unable to have the procedure due to the same type of symptoms causing an increase in his blood pressure with the procedure being aborted. He does have a history of esophageal stricture and dilation. Troponins have returned normal thus far. Exam Data for Last 24 hours Vital signs and Labs for Last 24 Hours: Temp Pulse Resp BP Pulse Ox O2 Del Method 97.6 F 51 L 16 139/74 95 Room Air 06/27/25 04:00 06/27/25 04:00 06/27/25 04:00 06/27/25 04:00 06/27/25 04:00 06/27/25 06:45 Laboratory Results - last 24 hr 06/26/25 04:29: Hemoglobin A1c 5.5 06/26/25 07:22: Troponin I < 0.01 06/26/25 09:13: Lactate 0.9 06/27/25 06:00: WBC 7.0, RBC 3.70 L, Hgb 11.1 L, Hct 34.1 L, MCV 92.2, MCH 30.0, MCHC 32.6, RDW 12.8, Plt Count 142 D, MPV 9.7, Neut % (Auto) 65.8, Lymph % (Auto) 26.1, [place] % (Auto) 5.8, Eos % (Auto) 1.4, Baso % (Auto) 0.6, Neut # (Auto) 4.6, Lymph # (Auto) 1.8, [place] # (Auto) 0.4, Eos # (Auto) 0.1, Baso # (Auto) 0.0, Sodium 137, Potassium 4.1, Chloride 106, Carbon Dioxide 29, Anion Gap 6.1, BUN 18, Creatinine 1.10, Estimated Creat Clear 85, Estimated GFR 66, Est GFR ( Amer) 80, Glucose 103 H, Calcium 8.8, Magnesium 2.1, Total Bilirubin 0.6, AST 25, ALT 13 D, Alkaline Phosphatase 75, Total Protein 5.3 L D, Albumin 3.5 D, Globulin 1.8, Albumin/Globulin Ratio 1.9 H, Triglycerides 147, Cholesterol 118 L, LDL Cholesterol Direct 65.39 L, VLDL Cholesterol 29, HDL Cholesterol 31 L, Cholesterol/HDL Ratio 3.8 H, Lipase 30 I & O for Last 24 hours: Intake & Output 06/24/25 06/25/25 06/26/25 06/27/25 11:59 11:59 11:59 11:59 Intake Total 1240 / 1240 Output Total 100 / 100 0 / 0 Balance -100 / -100 1240 / 1240 Weight 196 lb 4.8 oz 215 lb 8 oz Constitutional Constitutional: no acute distress *Routine Respiratory Exam Respiratory: Present CTA bilaterally *Routine Cardiovascular Exam Cardiovascular: Present RRR and murmur; Absent gallop or rubs Progress Note: A&P Assessment and plan (1) Angina pectoris, unstable: Status: Acute (2) Pancreatitis: Status: Acute (3) Elevated lipase: Status: Acute (4) Abdominal pain: Status: Acute (5) Head ache: Status: Acute (6) Carotid stenosis, asymptomatic: Problem details: Asymptomatic carotid stenosis on best medical therapy including aspirin, statins Status: Suspected (7) History of brain tumor: Problem details: Status post right acoustic neuroma resection Status: Resolved (8) Coronary arteriosclerosis: Status: Chronic (9) Sturgis Nelson syndrome (geniculate herpes zoster): Status: Acute (10) S/P AAA repair: Problem details: NOVEMBER 2021. Status: Chronic (11) Aneurysm of ascending aorta: Status: Chronic Assessment and Plan Assessment and Plan for All Diagnoses:: 1. Chest pain with known CAD/remote RCA stenting -normal troponins -remote RCA stent in 2016 -cath in 2019 showing mild to mod CAD relegated to medical therapy -recent stress test in 03/2025 normal -recent echo, 03/2025, normal BiV systolic function with no significant valve disease. Ascending aorta 4.1 cm. -continue ASA, statin, metoprolol and ranexa -Monitor on telemetry 2. Head congestion with chronic headache since brain surgery -Respiratory panel negative for flu and COVID -recent MRI stable per patient -CT and CTA of head without significant abnormalities -defer to hospitalist 3. Stable ascending aortic aneurysm 4 cm 4. History of GI problems including esophageal stricture with prior dilation 5. Elevated D-dimer with chest CTA negative for PE, this admission 6. Elevated lipase with abdominal pain with concern for pancreatitis 7. History of brain surgery to remove benign tumor 8. History of Sturgis Nelson syndrome Patient is clinically stable from a cardiac standpoint for possible discharge or EGD if felt needed this hospitalization. Home cardiac medication recommendations: Aspirin 81 mg daily Lipitor 40 mg daily Losartan 50 mg daily Metoprolol succinate 25 mg daily Ranolazine 500 mg twice daily Follow-up in our office in 2 weeks.
[2025-06-27 08:00] VITALS: BP 184/103; PULSE 63; RESP 18; TEMP 36.4; O2SAT 97
--- NOTE | 2025-06-27 08:16 | P.DS_ITS ---
<Statement entered by Sylvester Hahn MD - 06/27/25 15:17> Rounded on patient after nurse practitioner. Personally examined and interviewed patient. Agree with exam findings and care plan as documented. General Admission date:: 06/26/25 Discharge date: 06/27/25 HPI HPI HPI: Mr. Nolan is a 69-year-old male who presented to the emergency department today with multiple complaints. Complaints of headache (chronic), chest pain, left-sided abdominal pain with nausea, and shortness of air. 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 Patient states that he has been having chest pain, primarily left-sided for a few hours. Additionally has been having left-sided abdominal pain, states his last bowel movement was approximately 3 days ago. Additionally states he has had intermittent headaches, seemingly worse than normal. Patient states he has had multiple MRIs and been to multiple specialist and the consensus is they are related to his previous brain surgery. He also reports that he had a recent finding of a new aortic aneurysm. Patient had extensive workup in the emergency department including CTA of head, chest, neck, abdomen/pelvis. He was given aspirin and nitro x 2 by EMS, Tylenol, GI cocktail in the ED which did improve his abdominal/chest pain. Lab work was significant for lipase of 582, negative troponin, elevated D-dimer. Imaging of abdomen/pelvis shows previous abdominal aortic aneurysm repair, chronically occluded MATHEW with collaterals, cramping of the proximal right common iliac artery with moderate stenosis and stent, right common iliac artery poststenotic dilation and right common iliac artery aneurysm. 2.2 cm left common iliac artery aneurysm, small fat-containing bilateral inguinal hernias left greater than right. Chest CTA shows 4 cm diameter dilated ascending thoracic aorta, no aortic dissection, no PE. Head CTA shows stable narrowing cavernous ICA. 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 This could be the cause of his chronic and continued headaches. Patient continues to follow with who originally did patient's brain surgery and tumor removal in the . Hospital Course Hospital Course Hospital Course: Mr. Nolan is a 69-year-old male who presented to the emergency department with chest pain, abdominal pain, headache, shortness of air. Patient was found to have slightly elevated lipase at 582, chest pain that improved with nitroglycerin and worsened with activity. He remained hemodynamically stable in the emergency department, hospital medicine was consulted for admission, I agreed to admit the patient. Hospital course as follows: #Pancreatitis #Elevated lipase #Abdominal pain #History of Palm's esophagus/globus sensation ? Patient complained of left-sided abdominal pain referred around to his back. States it is intermittent. Lipase elevated at 582, trending downward today after fluids to 50. States he has not had a history of pancreatitis in the past. Does not appear to be on any medication that would put him at increased risk of pancreatitis. Patient does endorse smoking marijuana daily but otherwise denies alcohol or drug use. Patient received LR at 100 mL/H overnight. Patient tolerating p.o. diet. ?Patient does state he has intermittent difficulty with swallowing/globus sensation. Has a history of Palm's esophagus and dysphagia. GI consulted due to these findings, agree patient can be followed in the outpatient setting for possible EGD with dilation. Patient able to tolerate soft mechanical diet, counseled on eating a bland diet to help with indigestion and abdominal pain. Patient states he uses MiraLAX at home on a regular basis, will discharge with Reglan as needed. Patient was given GI cocktail and stated it gave him significant improvement. ?Abdomen/pelvis CTA does not show obstruction, no acute abnormalities noted on the pancreas, gallbladder unremarkable, no stones no ductal dilation. ?Lab work reassuring, WBC 7.0, hemoglobin 11.1, no electrolyte abnormalities, kidney function stable, creatinine 1.10. #Unstable angina #CAD/HTN/HLD #Bradycardia ?Patient did complain of left-sided chest pain. Given abdominal history, negative troponins, EKG without ischemic changes likely pain related to GI issues. Patient vitals reassuring, EKG showing sinus bradycardia. No ST elevation or depression. Initial troponin negative, continue to trend and troponin remain negative. Continuous cardiac telemetry in place, cardiology consulted for further recommendations. ?Upon chart review patient did have exercise stress test on 04/03/2025 which showed no arrhythmias or ectopy, ST changes less than 0.[address] segmen t changes. ?Patient last had LHC in 02/2020 medical management, does have a history of FARZANA in 2017. Blood patient has been stable, echo 04/21 showed normal BiV function, no valvular stenosis or regurgitation. LDL goal less than 55, lipid panel pending. ?Continue patient's home medication for his coronary artery disease: Aspirin 81 mg daily, Lipitor 40 mg daily, HCTZ 12.5 mg daily, losartan 50 mg daily, and ranolazine 500 mg twice daily. ?Patient prescribed metoprolol succinate 25 mg daily, patient appears that he has been bradycardic during this admission and previous visits to the hospital. Will hold metoprolol succinate. #Shortness of air: Patient complains of shortness of air, has a history of brain surgery with reconstruction. States that he is waiting to see an ENT at for further surgical recommendations due to nasal septal issues. Patient currently stable on room air, 96%. States he usually only feels short of breath when laying flat or laying on his side. Continue to monitor during admission patient O2 saturation remained stable. Patient should continue to follow with ENT. #Persistent headaches: Patient states he has chronic/persistent headaches. Some worse than others. 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 Tylenol, Jeff, morphine ordered as needed. Patient denies headache day of discharge. #Hypothyroidism: Patient TSH stable in August 2024, continue levothyroxine 75 mcg daily. #BPH: Continue alfuzosin 10 mg daily. #GERD: Continue omeprazole 40 mg daily. #Type 2 diabetes: Patient's A1c 5.5%. Very well-controlled does not currently take medication for diabetes. Total time spent on discharge 32 minutes in counseling, documentation, chart review, and direct care with patient. Exam Data for Last 24 hours Vital signs and Labs for Last 24 Hours: Temp Pulse Resp BP Pulse Ox O2 Del Method 97.6 F 63 18 184/103 H 97 Room Air 06/27/25 08:00 06/27/25 08:00 06/27/25 08:00 06/27/25 08:00 06/27/25 08:00 06/27/25 08:00 Laboratory Results - last 24 hr 06/26/25 04:29: Hemoglobin A1c 5.5 06/26/25 09:13: Lactate 0.9 06/27/25 06:00: WBC 7.0, RBC 3.70 L, Hgb 11.1 L, Hct 34.1 L, MCV 92.2, MCH 30.0, MCHC 32.6, RDW 12.8, Plt Count 142 D, MPV 9.7, Neut % (Auto) 65.8, Lymph % (Auto) 26.1, [place] % (Auto) 5.8, Eos % (Auto) 1.4, Baso % (Auto) 0.6, Neut # (Auto) 4.6, Lymph # (Auto) 1.8, [place] # (Auto) 0.4, Eos # (Auto) 0.1, Baso # (Auto) 0.0, Sodium 137, Potassium 4.1, Chloride 106, Carbon Dioxide 29, Anion Gap 6.1, BUN 18, Creatinine 1.10, Estimated Creat Clear 85, Estimated GFR 66, Est GFR ( Amer) 80, Glucose 103 H, Calcium 8.8, Magnesium 2.1, Total Bilirubin 0.6, AST 25, ALT 13 D, Alkaline Phosphatase 75, Total Protein 5.3 L D , Albumin 3.5 D, Globulin 1.8, Albumin/Globulin Ratio 1.9 H, Triglycerides 147, Cholesterol 118 L, LDL Cholesterol Direct 65.39 L, VLDL Cholesterol 29, HDL Cholesterol 31 L, Cholesterol/HDL Ratio 3.8 H, Lipase 30 I & O for Last 24 hours: Intake & Output 06/24/25 06/25/25 06/26/25 06/27/25 23:59 23:59 23:59 23:59 Intake Total 1240 / 1240 Output Total 100 / 100 0 / 0 Balance 1140 / 1140 0 / 0 Weight 89.04 kg 97.749 kg Constitutional Constitutional: no acute distress, obese, chronically ill appearing and cooperative *Routine HEENT Exam Head: Present normocephalic Eye: Present EOMI ENT: Present mucous membranes moist Comments: Right facial paralysis/drooping from prior brain surgery *Routine Neck Exam Neck: Present supple *Routine Respiratory Exam Respiratory: Present CTA bilaterally, normal respiratory effort and able to speak in complete sentences; Absent wheezes or crackles *Routine Cardiovascular Exam Cardiovascular: Present RRR; Absent murmur *Routine Abdominal Exam Abdominal: Present soft and normoactive bowel sounds; Absent tenderness or distended *Routine Rectal Exam Patient deferred: visual exam *Routine Exam Patient deferred: penile exam *Routine Extremities Exam Extremities: Present full ROM; Absent cyanosis, clubbing or edema *Routine Skin Exam Skin: Present intact, dry and warm; Absent rash *Routine Neurological Exam Neurological: Present alert, oriented X3, moving all extremities and normal speech Routine Psychiatric Exam Psychiatric: Present normal affect and cooperative Results Data Completed and Pending Labs on day of discharge: Labs from last 24 hours 06/27/25 06/26/25 06/26/25 06:00 09:13 04:29 WBC 7.0 RBC 3.70 L Hgb 11.1 L Hct 34.1 L MCV 92.2 MCH 30.0 MCHC 32.6 RDW 12.8 Plt Count 142 D MPV 9.7 Neut % (Auto) 65.8 Lymph % (Auto) 26.1 [place] % (Auto) 5.8 Eos % (Auto) 1.4 Baso % (Auto) 0.6 Neut # (Auto) 4.6 Lymph # (Auto) 1.8 [place] # (Auto) 0.4 Eos # (Auto) 0.1 Baso # (Auto) 0.0 Sodium 137 Potassium 4.1 Chloride 106 Carbon Dioxide 29 Anion Gap 6.1 BUN 18 Creatinine 1.10 Estimated Creat Clear 85 Estimated GFR 66 Est GFR ( Amer) 80 Glucose 103 H Hemoglobin A1c 5.5 Lactate 0.9 Calcium 8.8 Magnesium 2.1 Total Bilirubin 0.6 AST 25 ALT 13 D Alkaline Phosphatase 75 Total Protein 5.3 L D Albumin 3.5 D Globulin 1.8 Albumin/Globulin Ratio 1.9 H Triglycerides 147 Cholesterol 118 L LDL Cholesterol Direct 65.39 L VLDL Cholesterol 29 HDL Cholesterol 31 L Cholesterol/HDL Ratio 3.8 H Lipase 30 DS: Diagnosis Discharge Diagnosis (1) Angina pectoris, unstable: Status: Acute Code(s): I20.0 - Unstable angina (2) Pancreatitis: Status: Acute Code(s): K85.90 - Acute pancreatitis without necrosis or infection, unspecified Qualifiers: Acute pancreatitis complication: unspecified Chronicity: acute Pancreatitis type: unspecified pancreatitis type Qualified Code(s): K85.90 - Acute pancreatitis without necrosis or infection, unspecified (3) Elevated lipase: Status: Acute Code(s): R74.8 - Abnormal levels of other serum enzymes (4) Abdominal pain: Status: Acute Code(s): R10.9 - Unspecified abdominal pain Qualifiers: Abdominal location: generalized Qualified Code(s): R10.84 - Generalized abdominal pain (5) Head ache: Status: Acute Code(s): R51.9 - Headache, unspecified Qualifiers: Headache chronicity pattern: chronic headache Headache type: unspecified Intractability: not intractable Qualified Code(s): R51.9 - Headache, unspecified; G89.29 - Other chronic pain (6) Carotid stenosis, asymptomatic: Status: Suspected Code(s): I65.29 - Occlusion and stenosis of unspecified carotid artery Qualifiers: Laterality: right Qualified Code(s): I65.21 - Occlusion and stenosis of right carotid artery Problem details: Asymptomatic carotid stenosis on best medical therapy including aspirin, statins (7) History of brain tumor: Status: Resolved Code(s): Z87.898 - Personal history of other specified conditions Problem details: Status post right acoustic neuroma resection (8) Coronary arteriosclerosis: Status: Chronic Code(s): I25.10 - Atherosclerotic heart disease of 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 (11) Aneurysm of ascending aorta: Status: Chronic Code(s): I71.21 - Aneurysm of the ascending aorta, without rupture Qualifiers: Presence of rupture: without rupture Qualified Code(s): I71.21 - Aneurysm of the ascending aorta, without rupture Meds Home Medications and Allergies Home Medications ?Medication ?Instructions ?Recorded ?Confirmed ?Type alfuzosin 10 mg tablet,extended 10 mg PO DAILY 3 06/26/25 History release 24 hr blood sugar diagnostic (Accu-Chek #50 ea 10/25/2305/30 Rx Guide test strips) aspirin 81 mg tablet,delayed 81 mg PO DAILY 06/26/25 1 History release atorvastatin 40 mg tablet 40 mg PO DAILY 06/26/2505/30 History cetirizine 10 mg tablet 10 mg PO DAILY 06/26/2505/30 History hydrochlorothiazide 12.5 mg capsule 12.5 mg PO DAILY 1 06/26/25 History levothyroxine 75 mcg tablet 75 mcg PO DAILY 06/26/25 1 History lidocaine 5 % topical patch 1 patch topical DAILY 05/3006/26/25 History losartan 50 mg tablet 50 mg PO DAILY 06/26/2505/30 History metoprolol succinate 25 mg 25 mg PO DAILY 06/26/25 History tablet,extended release 24 hr omeprazole 40 mg capsule,delayed 40 mg PO DAILY 06/26/25 History release ranolazine 500 mg tablet,extended 500 mg PO BID 06/26/25 History release,12 hr sildenafil (pulm.hypertension) 20 20 mg PO NEEDED P RN Sexual 06/26/25 06/26/25 History mg tablet Activity metoclopramide HCl 5 mg tablet 5 mg PO Q8H PRN nausea and 06/27/25 Rx vomiting #30 tabs New Prescriptions to Start Prescriptions: metoclopramide HCl Mariaelena Santo Allergies Allergy/AdvReac Type Severity Reaction Status Date / Time hydromorphone (From Dilaudid) Allergy Severe Anaphylaxis Verified 06/26/25 05:02 latex (LATEX) Allergy Unknown Unknown Verified 06/26/25 05:02 allergy reaction Penicillins (PENICILLINS) Allergy Unknown Unknown Verified 06/26/25 05:02 allergy reaction Sulfa (Sulfonamide Allergy Unknown Unknown Verified 06/26/25 05:02 Antibiotics) (SULFA allergy (SULFONAMIDE ANTIBIOTICS)) reaction Discharge Plan Disposition Patient Disposition: Home, Self-Care Condition: Fair Follow up Plan Follow up with: Disha Pineda PA [Primary Care Provider, Medical] - 1 week Vahid Santo PA [Physician Public Service Representative, Cardiology] - 1 week Raiza Mcnair APRN [Nurse Practitioner, Gastroenterology] - 2 weeks Prescriptions/Medication Reconciliation: New metoclopramide HCl 5 mg tablet 5 mg PO Q8H PRN (Reason: nausea and vomiting) Qty: 30 0RF Continued alfuzosin 10 mg tablet extended release 24 hr 10 mg PO DAILY (DME) Accu-Chek Guide test strips Strip See Rx Instructions .ROUTE .COMPLEX Qty: 50 3RF Dose Instruction: TEST TWICE DAILY Rx Instructions: TEST TWICE DAILY losartan 50 mg tablet 50 mg PO DAILY atorvastatin 40 mg tablet 40 mg PO DAILY cetirizine 10 mg tablet 10 mg PO DAILY omeprazole 40 mg capsule,delayed release(DR/EC) 40 mg PO DAILY lidocaine 5 % adhesive patch,medicated 1 patch topical DAILY hydrochlorothiazide 12.5 mg capsule 12.5 mg PO DAILY metoprolol succinate 25 mg tablet extended release 24 hr 25 mg PO DAILY ranolazine 500 mg tablet extended release 12 hr 500 mg PO BID levothyroxine 75 mcg tablet 75 mcg PO DAILY sildenafil (pulm.hypertension) 20 mg tablet 20 mg PO NEEDED PRN (Reason: Sexual Activity) Rx Instructions: TAKE 1 TABLET DAILY NEEDED FOR SEXUAL ACTIVITY; ADMINISTER DOSES AT LEAST 4-6 HOURS APART aspirin 81 mg tablet,delayed release (DR/EC) 81 mg PO DAILY Problem Reconciliation Problems Reviewed?: Yes Patient Discharge Instructions ACTIVITY: Continue current activity DIET: other Additional Instructions: [place] Diet Patient Instructions: DI for Pancreatitis, DI for Angina Print Language: Slovenian Providers Primary Care Provider: Disha Pineda Admit Provider: Sylvester Hahn Attending Provider: Sylvester Hahn
[2025-06-27] MEDS: ASPIRIN EC 81MG TABLET 81 MG PO (08:58)
[2025-06-27] MEDS: RANOLAZINE 500MG ER TABLET 500 MG PO (08:58)
[2025-06-27] MEDS: LEVOTHYROXINE 75MCG (0.075MG) TAB 75 MCG PO (08:58)
[2025-06-27] MEDS: IRBESARTAN 75MG TABLET 75 MG PO (08:58)
[2025-06-27] MEDS: LORATADINE 10MG TABLET 10 MG PO (08:59)
[2025-06-27 10:46] LABS: Troponin I < 0.01 ng/ml (0.00-0.034)
[2025-06-27 12:00] VITALS: BP 161/90; PULSE 65; RESP 17; TEMP 36.6; O2SAT 94
[2025-06-27] MEDS: BELLADONNA ALKALOIDS 60 ML ML PO (12:03)
--- NOTE | 2025-06-27 12:10 | DIET.NUTRFU ---
RD consulted for chewing or swallowing issues. Patient has a increase in phlegm secondary to dx. He does report swallowing issues and provider has scheduled him for outpatient dilatation. Diet was changed to MSOFT with ground meat for better tolerance until has procedure completed.
--- NOTE | 2025-06-27 13:17 | EXP.GE.CONS ---
History of Present Illness *Admission Date: 06/26/25 *History of present illness: Mr. Nolan is a 69-year-old male who presented to the emergency department today with multiple complaints. Complaints of headache (chronic), chest pain, left-sided abdominal pain with nausea, and shortness of air. 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 Patient states that he has been having chest pain, primarily left-sided for a few hours. Additionally has been having left-sided abdominal pain, states his last bowel movement was approximately 3 days ago. Additionally states he has had intermittent headaches, seemingly worse than normal. Patient states he has had multiple MRIs and been to multiple specialist and the consensus is they are related to his previous brain surgery. He also reports that he had a recent finding of a new aortic aneurysm. Patient had extensive workup in the emergency department including CTA of head, chest, neck, abdomen/pelvis. He was given aspirin and nitro x 2 by EMS, Tylenol, GI cocktail in the ED which did improve his abdominal/chest pain. Lab work was significant for lipase of 582, negative troponin, elevated D-dimer. Imaging of abdomen/pelvis shows previous abdominal aortic aneurysm repair, chronically occluded MATHEW with collaterals, cramping of the proximal right common iliac artery with moderate stenosis and stent, right common iliac artery poststenotic dilation and right common iliac artery aneurysm. 2.2 cm left common iliac artery aneurysm, small fat-containing bilateral inguinal hernias left greater than right. Chest CTA shows 4 cm diameter dilated ascending thoracic aorta, no aortic dissection, no PE. Head CTA shows stable narrowing cavernous ICA. 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 This could be the cause of his chronic and continued headaches. Patient continues to follow with who originally did patient's brain surgery and tumor removal in the . per H&P This is a 69-year-old male who has a history of dysphagia necessitating multiple dilations during EGD over the years. His last EGD was with Dr. Gamez in May 2023 which was relatively normal but for perceived dysphagia status post dilation. He does have a prior diagnosis of Palm's esophagus. The patient was seen in our office in October with nausea vomiting dysphagia and globus. He has IBS with constipation and struggles with abdominal discomfort related to it. He does have a history of a mild pancreatic atrophy. He denies any melena hematochezia or mucus in his stool. He denies any family history of colon cancer or other GI cancers, IBD or celiac disease. The patient is status post brain tumor and stroke and has significant right sided facial droop. He does find that some fluids are hard for him to swallow but denies that the change in swallowing occurred surrounding the stroke or the brain tumor diagnosis. The patient's last colonoscopy that I can see was with Dr. Ambrocio in 2020 and he had a TA x 7 and an HP x 1. He was on a 3-year screening interval and has had no other colonoscopy since then. We had recommended EGD at last visit but he did not follow-up. Today the patient reports left-sided abdominal pain upon arrival to the ER. He did get improvement with a GI cocktail. He reports he has not had a bowel movement in 3 to 4 days. Had a very small bowel movement on Wednesday and a very small bowel movement on Wednesday. He feels full and a distended. He is taking MiraLAX every day and even on that he struggling with chronic constipation. He has had less of an appetite since he has been constipated however he has been able to eat at least 1 meal today. He has not been losing weight. He did have an elevated lipase at 582 but no findings on pancreatitis on CT scan. His lipase normalized this morning at 30. He did have a chronically occluded MATHEW with collaterals and cramping of the proximal right iliac artery stent with moderate stenosis. The patient plans to return home today. [facility] Disclaimer: The information contained in this section may have been updated after the patient was seen, as this information can be updated by other users. 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 TSH has not been drawn for some time we will check that today. Ingrown right big toenail Ingrown left big toenail Foot pain Wrist pain Rib pain on left side Left radial head fracture Diabetes mellitus Hypertensive heart disease Hyperlipidemia Gigi has not had a lipid panel drawn in some time. We will draw 1 today and he will continue his atorvastatin for now. Abdominal aortic aneurysm Aneurysm of ascending aorta Surgical History Hx of eye surgery gold weight to help close eyelid Hx of brain surgery tumor S/P AAA repair NOVEMBER 2021. Stented coronary artery Family History Other Family history of cancer Family history of diabetes mellitus type II Family history of myocardial infarction Social History Smoking Status: Former smoker tobacco type: cigarettes packs per day: 4 how long ago did patient quit smokin years second hand exposure: Yes alcohol intake: former counseling provided: none substance use type: marijuana current occupational status: retired Travel in the last 8 weeks?: None household members: other housing: house marital status: legally current occupational exposures/hazards: No caffeine: Yes physical activity: none do you feel safe at home: Yes victim of physical abuse: No victim of emotional abuse: No victim of sexual abuse: No Review of Systems Constitutional Constitutional: Reports headache(s) ENT Ears, Nose, Mouth, and Throat: Reports headache(s) *Neurologic Neurologic: Reports headache(s) Meds Home Medications and Allergies Home Medications ?Medication ?Instructions ?Recorded ?Confirmed ?Type alfuzosin 10 mg tablet,extended 10 mg PO DAILY 02/19/23 06/26/25 History release 24 hr blood sugar diagnostic (Accu-Chek #50 ea 10/25/23 06/26/25 Rx Guide test strips) aspirin 81 mg tablet,delayed 81 mg PO DAILY 06/26/25 06/26/25 History release atorvastatin 40 mg tablet 40 mg PO DAILY 06/26/25 06/26/25 History cetirizine 10 mg tablet 10 mg PO DAILY 06/26/25 06/26/25 History hydrochlorothiazide 12.5 mg capsule 12.5 mg PO DAILY 06/26/25 06/26/25 History levothyroxine 75 mcg tablet 75 mcg PO DAILY 06/26/25 06/26/25 History lidocaine 5 % topical patch 1 patch topical DAILY 06/26/25 06/26/25 History losartan 50 mg tablet 50 mg PO DAILY 06/26/25 06/26/25 History metoprolol succinate 25 mg 25 mg PO DAILY 06/26/25 06/26/25 History tablet,extended release 24 hr omeprazole 40 mg capsule,delayed 40 mg PO DAILY 06/26/25 06/26/25 History release ranolazine 500 mg tablet,extended 500 mg PO BID 06/26/25 06/26/25 History release,12 hr sildenafil (pulm.hypertension) 20 20 mg PO NEEDED PRN Sexual 06/26/25 06/26/25 History mg tablet Activity metoclopramide HCl 5 mg tablet 5 mg PO Q8H PRN nausea and 06/27/25 Rx vomiting #30 tabs New Prescriptions to Start Prescriptions: metoclopramide HCl Mariaelena Santo Allergies Allergy/AdvReac Type Severity Reaction Status Date / Time hydromorphone (From Dilaudid) Allergy Severe Anaphylaxis Verified 06/26/25 05:02 latex (LATEX) Allergy Unknown Unknown Verified 06/26/25 05:02 allergy reaction Penicillins (PENICILLINS) Allergy Unknown Unknown Verified 06/26/25 05:02 allergy reaction Sulfa (Sulfonamide Allergy Unknown Unknown Verified 06/26/25 05:02 Antibiotics) (SULFA allergy (SULFONAMIDE ANTIBIOTICS)) reaction Exam (Inpt) Vital signs and Labs for Last 24 Hours: Temp Pulse Resp BP Pulse Ox O2 Del Method 97.8 F 65 17 161/90 H 94 L Room Air 06/27/25 12:00 06/27/25 12:00 06/27/25 12:00 06/27/25 12:00 06/27/25 12:00 06/27/25 12:00 Laboratory Results - last 24 hr 06/27/25 06:00: WBC 7.0, RBC 3.70 L, Hgb 11.1 L, Hct 34.1 L, MCV 92.2, MCH 30.0, MCHC 32.6, RDW 12.8, Plt Count 142 D, MPV 9.7, Neut % (Auto) 65.8, Lymph % (Auto) 26.1, Sibley % (Auto) 5.8, Eos % (Auto) 1.4, Baso % (Auto) 0.6, Neut # (Auto) 4.6, Lymph # (Auto) 1.8, [place]y # (Auto) 0.4, Eos # (Auto) 0.1, Baso # (Auto) 0.0, Sodium 137, Potassium 4.1, Chloride 106, Carbon Dioxide 29, Anion Gap 6.1, BUN 18, Creatinine 1.10, Estimated Creat Clear 85, Estimated GFR 66, Est GFR ( Amer) 80, Glucose 103 H, Calcium 8.8, Magnesium 2.1, Total Bilirubin 0.6, AST 25, ALT 13 D, Alkaline Phosphatase 75, Total Protein 5.3 L D, Albumin 3.5 D, Globulin 1.8, Albumin/Globulin Ratio 1.9 H, Triglycerides 147, Cholesterol 118 L, LDL Cholesterol Direct 65.39 L, VLDL Cholesterol 29, HDL Cholesterol 31 L, Cholesterol/HDL Ratio 3.8 H, Lipase 30 06/27/25 10:15: Troponin I < 0.01 I & O for Labs for Last 24 Hours: Intake & Output 06/25/25 06/26/25 06/27/25 06/28/25 11:59 11:59 11:59 11:59 Intake Total 1360 Output Total 100 0 0 Balance -100 1360 0 Weight 89.04 kg 97.749 kg Results Labs 06/27/25 06:00 06/27/25 06:00 Labs: Laboratory Results - last 24 hr 06/27/25 06:00: WBC 7.0, RBC 3.70 L, Hgb 11.1 L, Hct 34.1 L, MCV 92.2, MCH 30.0, MCHC 32.6, RDW 12.8, Plt Count 142 D, MPV 9.7, Neut % (Auto) 65.8, Lymph % (Auto) 26.1, S[place]y % (Auto) 5.8, Eos % (Auto) 1.4, Baso % (Auto) 0.6, Neut # (Auto) 4.6, Lymph # (Auto) 1.8, [place]y # (Auto) 0.4, Eos # (Auto) 0.1, Baso # (Auto) 0.0, Sodium 137, Potassium 4.1, Chloride 106, Carbon Dioxide 29, Anion Gap 6.1, BUN 18, Creatinine 1.10, Estimated Creat Clear 85, Estimated GFR 66, Est GFR ( Amer) 80, Glucose 103 H, Calcium 8.8, Magnesium 2.1, Total Bilirubin 0.6, AST 25, ALT 13 D, Alkaline Phosphatase 75, Total Protein 5.3 L D, Albumin 3.5 D, Globulin 1.8, Albumin/Globulin Ratio 1.9 H, Triglycerides 147, Cholesterol 118 L, LDL Cholesterol Direct 65.39 L, VLDL Cholesterol 29, HDL Cholesterol 31 L, Cholesterol/HDL Ratio 3.8 H, Lipase 30 06/27/25 10:15: Troponin I < 0.01 Assessment and Plan *Assessment and plan (1) Elevated lipase: Status: Acute Category: Medical Code(s): R74.8 - Abnormal levels of other serum enzymes (2) Pancreatitis: Status: Acute Qualifiers: Acute pancreatitis complication: unspecified Chronicity: acute Pancreatitis type: unspecified pancreatitis type Qualified Code(s): K85.90 - Acute pancreatitis without necrosis or infection, unspecified Category: Medical Code(s): K85.90 - Acute pancreatitis without necrosis or infection, unspecified (3) Irritable bowel syndrome with constipation: Status: Acute Category: Medical Code(s): K58.1 - Irritable bowel syndrome with constipation (4) Atrophic pancreas: Status: Acute Category: Medical Code(s): K86.89 - Other specified diseases of pancreas (5) Bloating: Status: Acute Category: Medical Code(s): R14.0 - Abdominal distension (gaseous) (6) Left sided abdominal pain: Status: Acute Category: Medical Code(s): R10.9 - Unspecified abdominal pain (7) Palm esophagus: Status: Chronic Category: Medical Code(s): K22.70 - Palm's esophagus without dysplasia (8) Dysphagia: Status: Acute Qualifiers: Dysphagia type: unspecified Qualified Code(s): R13.10 - Dysphagia, unspecified Category: Medical Code(s): R13.10 - Dysphagia, unspecified Plan 1. Elevated lipase/pancreatitis Lipase level of 582, normalized today at 30. No evidence of pancreatitis on imaging. Patient has no history of pancreatitis but he does have a history of mildly atrophic pancreas. I am not convinced that this was an acute pancreatitis episode. His lipase was not 3 times the upper limit of normal and no imaging findings. He is tender to palpation throughout his abdomen but he is very distended with gas bloat and stool. He has been able to eat and drink appropriately. He does report less of an appetite since he has been constipated. He denies weight loss. See below. 2. IBS with constipation/bloating/left-sided abdominal pain Symptoms improved with a GI cocktail in the ER. Patient has been constipated worse than normal even on MiraLAX daily. He does have a chronically occluded MATHEW with collaterals and cramping of the proximal right iliac artery stent with moderate stenosis but I do not believe that is contributing to the abdominal discomfort he is having. He has had no bowel movement since Wednesday and only a small bowel movement on Wednesday and Wednesday. I think this is chronic constipation that has caused him abdominal pain before. No other concern findings on imaging. He is overdue for EGD and colonoscopy. Had a TA x 7 and HP x 1 on last colonoscopy with Dr. Ambrocio in 2020 . He did have Palm's esophagus findings on previous EGD. He is having trouble with dysphagia again has required multiple dilations over the years. I would like to see this patient in the next couple of weeks as an outpatient and we will get him scheduled for EGD and colonoscopy. I recommend he increase his MiraLAX to twice a day until I see him in the office. If that is not enough he may need a prescription medicine for his IBS.
--- NOTE | 2025-06-29 10:14 | SW/DCPLANNER ---
Spoke with patient on the phone. Patient stated that he is doing good other than having his headaches. Patient stated that he is aware of his upcoming appointments. Patient stated that he was able to get his new medicine picked up from clinic pharmacy. Patient stated that he has no concerns or questions at this time. Joseph Menon
== END 2025-06-27 15:10 | disposition home or self-care (01) ==
LOC: ER 05:09 → 2ND 09:38
PROVIDERS: Admitting Provider Internal Medicine Adolescent Medicine; Emergency Provider Emergency Medicine; PCP Physician Assistant; Visit Provider Internal Medicine Adolescent Medicine
DX: K85.90 Acute pancreatitis without necrosis or infection, unspecified (principal); R74.8 Abnormal levels of other serum enzymes; R51.9 Headache, unspecified; G89.29 Other chronic pain; I65.21 Occlusion and stenosis of right carotid artery; B02.21 Postherpetic geniculate ganglionitis; I71.21 Aneurysm of the ascending aorta, without rupture; K58.1 Irritable bowel syndrome with constipation; K86.89 Other specified diseases of pancreas; K22.70 Barrett's esophagus without dysplasia; R13.10 Dysphagia, unspecified; E11.9 Type 2 diabetes mellitus without complications; I25.2 Old myocardial infarction; I25.119 Atherosclerotic heart disease of native coronary artery with unspecified angina pectoris; I11.9 Hypertensive heart disease without heart failure; E78.5 Hyperlipidemia, unspecified; I71.40 Abdominal aortic aneurysm, without rupture, unspecified; K21.9 Gastro-esophageal reflux disease without esophagitis; M48.02 Spinal stenosis, cervical region; J43.9 Emphysema, unspecified; I72.3 Aneurysm of iliac artery; K40.20 Bilateral inguinal hernia, without obstruction or gangrene, not specified as recurrent; Z87.891 Personal history of nicotine dependence; Z87.898 Personal history of other specified conditions; Z86.79 Personal history of other diseases of the circulatory system; Z98.890 Other specified postprocedural states; Z88.5 Allergy status to narcotic agent; Z91.040 Latex allergy status; Z88.0 Allergy status to penicillin; Z88.2 Allergy status to sulfonamides; Z79.899 Other long term (current) drug therapy; Z79.890 Hormone replacement therapy; Z79.82 Long term (current) use of aspirin; Z82.49 Family history of ischemic heart disease and other diseases of the circulatory system
CPT/HCPCS: 70450; 70496; 70498; 71275; 74174; 80053; 80061; 82803; 83036; 83605; 83690; 83735; 84484; 85025; 85378; 87636; 93005; 96361; 96365; 96366; 96374; 96375; 96376; 97163; 97166; 99285; G0378; J0780; J1200; J1885; J2270; J2405; J7120; Q9967